=== PATIENT | male | born 1935 | race Hispanic/Latino ===

== ENCOUNTER 2018-06-17 14:31 | Inpatient (IN) | payer MEDICARE, MEDICAID ==
[2018-06-17] VITALS (7 sets, daily range): BP systolic 73–151; BP diastolic 45–73
[~2018-06-17] VITALS: Ht 177.8 cm; Wt 67.1 kg
[~2018-06-17 14:31] MED LIST: Cefepime HCl 1 GM in NS 55 ML IV SCH; Vancomycin 1 GM in NS 275 ML IV ONE
[2018-06-17] MEDS ORDERED: Cefepime 1gm vial ONE (14:38)
[2018-06-17] MEDS ORDERED: Vancomycin 1gm inj IVPB ONE (14:38)
--- NOTE | 2018-06-17 14:43 | Emergency Room Report ---
History of Present Illness General Chief Complaint: Altered Level of Consciousness Source: Medical Record, EMS Present Illness HPI This patient presents from a nursing home facility. EMS state that the nursing home facility noted that the patient was less alert than baseline. The patient has a history of epilepsy, hypothyroidism, diabetes and chronic encephalopathy. The patient is not oriented at baseline. The patient himself is unable to give a history. There is no other history of present illness available at this time. Allergies: Coded Allergies: No Known Allergies (Unverified , 06/17/18) Patient History Past Medical History: see triage record, old chart reviewed, DM, IN, CAD, CHF, GERD, CVA/TIA, dementia, seizures Past Surgical History: other - PEG Social History: Denies: smoking, alcohol use, drug use Reviewed Nursing Documentation: PMH: Agreed; PSxH: Agreed Review of Systems All Other Systems: limited Physical Exam Sp02 EP Interpretation: reviewed, abnormal - 95% on 5LNC General Appearance: no apparent distress, cachetic, lethargic, other - Cachectic, frail, chronically ill appearing elderly male Head: normocephalic, atraumatic ENT: no angioedema Neck: normal inspection, supple/symm/no masses Respiratory: normal inspection, normal breath sounds, no rhonchi, no respiratory distress, no retraction, no accessory muscle use Cardiovascular #1: tachycardia, other - Heart sounds diminished. Gastrointestinal: normal inspection, non-distended, other - PEG in place Neurologic: other - Non-focal. Minimally responsive. Sleeping. Unable to fully assess secondary to mental status. Skin: no rash, other - See RN skin exam Medical Decision Making Diagnostic Impression: Primary Impression: Sepsis Additional Impressions: Pneumonia Elevated troponin Azotemia Dehydration Septic shock ER Course This patient is comfort measures only. The patient is DO NOT RESUSCITATE. The patient presents with pneumonia and sepsis. Initially, this patient was hypotensive. However, the patient did respond to IV fluid resuscitation. I also suspect this patient was dehydrated given the laboratory findings of azotemia. Chest x-ray does show an opacification consistent with pneumonia. The patient was given broad-spectrum antibiotics, aggressive IV fluids and admitted to telemetry. The patient also had an elevated troponin. I suspect this is a demand ischemia. He has a bifascicular block on EKG. Given the patient's comfort care status there is no intervention at this time. This patient is critically ill. This patient required complex medical decision- making, aggressive intervention, extensive laboratory workup and monitoring. Critical care time: 40 minutes. Laboratory Tests Test 06/17/18 14:35 White Blood Count 12.2 K/UL (4.8-10.8) H Red Blood Count 4.16 M/UL (4.70-6.10) L Hemoglobin 12.6 G/DL (14.2-18.0) L Hematocrit 38.3 % (42.0-52.0) L Mean Corpuscular Volume 92 FL (80-99) Mean Corpuscular Hemoglobin 30.2 PG (27.0-31.0) Mean Corpuscular Hemoglobin Concent 32.8 G/DL (32.0-36.0) Red Cell Distribution Width 11.6 % (11.6-14.8) Platelet Count 229 K/UL (150-450) Mean Platelet Volume 7.9 FL (6.5-10.1) Neutrophils (%) (Auto) 84.7 % (45.0-75.0) H Lymphocytes (%) (Auto) 7.0 % (20.0-45.0) L Monocytes (%) (Auto) 7.9 % (1.0-10.0) Eosinophils (%) (Auto) 0.1 % (0.0-3.0) Basophils (%) (Auto) 0.4 % (0.0-2.0) Sodium Level 139 MMOL/L (136-145) Potassium Level 3.5 MMOL/L (3.5-5.1) Chloride Level 104 MMOL/L (98-107) Carbon Dioxide Level 29 MMOL/L (21-32) Anion Gap 6 mmol/L (5-15) Blood Urea Nitrogen 57 mg/dL (7-18) H Creatinine 1.2 MG/DL (0.55-1.30) Estimate Glomerular Filtration Rate mL/min (>60) Glucose Level 120 MG/DL (74-106) H Lactic Acid Level 3.00 mmol/L (0.4-2.0) H Calcium Level 9.6 MG/DL (8.5-10.1) Total Bilirubin 0.4 MG/DL (0.2-1.0) Aspartate Amino Transferase (AST) 22 U/L (15-37) Alanine Aminotransferase (ALT) 22 U/L (12-78) Alkaline Phosphatase 94 U/L (46-116) Total Creatine Kinase 32 U/L (26-308) Creatine Kinase MB 2.6 NG/ML (0.0-3.6) Creatine Kinase MB Relative Index 8.1 Troponin I 0.126 ng/mL (0.000-0.056) Total Protein 7.5 G/DL (6.4-8.2) Albumin 2.4 G/DL (3.4-5.0) L Globulin 5.1 g/dL Albumin/Globulin Ratio 0.5 (1.0-2.7) L EKG Diagnostic Results Rate: tachycardiac Rhythm: other - S.tachycardia ST Segments: no acute changes Other Impression Bifasicular block. Rhythm Strip Diag. Results EP Interpretation: yes Rate: 100's Rhythm: other - S.tachycardia, occasional PVCs Chest X-Ray Diagnostic Results Chest X-Ray Diagnostic Results : Chest X-Ray Ordered: Yes # of Views/Limited/Complete: 1 View Indication: Shortness of Breath EP Interpretation: Yes Interpretation: other - RLL opacity Impression: Other - RLL and RML opacity Disposition: ADMITTED INPATIENT Condition: Critical Blanquita Murphy DO Jun 17, 2018 14:43
[2018-06-17 15:02] LABS: ANION GAP 6 mmol/L (5-15); BLOOD UREA NITROGEN 57 mg/dL (7-18); CALCIUM 9.6 MG/DL (8.5-10.1); CARBON DIOXIDE 29 MMOL/L (21-32); CHLORIDE 104 MMOL/L (98-107); CREATININE 1.2 MG/DL (0.55-1.30); POTASSIUM 3.5 MMOL/L (3.5-5.1); SODIUM 139 MMOL/L (136-145)
[2018-06-17 15:09] LABS: BASOPHILS % (AUTO) 0.4 % (0.0-2.0); EOSINOPHILS % (AUTO) 0.1 % (0.0-3.0); HEMATOCRIT 38.3 % (42.0-52.0); HEMOGLOBIN 12.6 G/DL (14.2-18.0); MEAN CORPUSCULAR VOLUME 92 FL (80-99); MONOCYTES % (AUTO) 7.9 % (1.0-10.0); NEUTROPHILS % (AUTO) 84.7 % (45.0-75.0); PLATELET COUNT 229 K/UL (150-450); RED BLOOD COUNT 4.16 M/UL (4.70-6.10); RED CELL DISTRIBUTION WIDTH 11.6 % (11.6-14.8); WHITE BLOOD COUNT 12.2 K/UL (4.8-10.8)
[2018-06-17 15:16] LABS: ALANINE AMINOTRANSFERASE 22 U/L (12-78); ALBUMIN 2.4 G/DL (3.4-5.0); ALBUMIN/GLOBULIN RATIO 0.5 (1.0-2.7); ALKALINE PHOSPHATASE 94 U/L (46-116); ASPARTATE AMINO TRANSFERASE 22 U/L (15-37); BILIRUBIN,TOTAL 0.4 MG/DL (0.2-1.0); CKMB 2.6 NG/ML (0.0-3.6); CREATINE KINASE 32 U/L (26-308)
[2018-06-17] MEDS ORDERED: CRANBERRY450 M4 GT (15:56)
[2018-06-17] MEDS ORDERED: ATORVASTATIN CA20 MG ORAL (15:56)
[2018-06-17] MEDS ORDERED: ENALAPRIL MALEAT5 MG GT ×2 (15:56→16:23)
[2018-06-17] MEDS ORDERED: DOXAZOSIN MESYLA1 MG GT (15:56)
[2018-06-17] MEDS ORDERED: DONEPEZIL HCL5 MG GT (15:56)
--- NOTE | 2018-06-17 16:19 | Diagnostic Imaging Report ---
Indication: Reason For Exam: SOB Technique: One view of the chest Comparison: none Findings: Interstitial and airspace disease is seen throughout the right lung, sparing the apex. The right pleural space is clear. The left costophrenic angle is slightly blunted. The left lung is clear. Surgical clips projected over the right lung apex. Impression: Diffuse interstitial and airspace disease throughout the right lung, may indicate pneumonia. Left costophrenic angle blunting, small pleural effusion not completely excludable
[2018-06-17] MEDS ORDERED: METFORMIN HCL500 M1 ORAL (16:23)
[2018-06-17] MEDS ORDERED: NAMENDA5 MG GT (16:23)
[2018-06-17] MEDS ORDERED: FAMOTIDINE20 MG GT (16:23)
[2018-06-17] MEDS ORDERED: KEPPRA750 MG GT (16:23)
[2018-06-17] MEDS ORDERED: LEVOTHYROXINE125 MCG GT (16:23)
[2018-06-17] MEDS ORDERED: GABAPENTIN300 MG GT (16:23)
[2018-06-17 16:53] LABS: APPEARANCE,URINE SLIGHTLY CLOUDY; BILIRUBIN, URINE NEGATIVE (NEGATIVE); COLOR,URINE PALE YELLOW; GLUCOSE, URINE (UA) 1+ (NEGATIVE); KETONES,URINE NEGATIVE (NEGATIVE); LEUKOCYTE ESTERASE ,URINE 3+ (NEGATIVE); NITRITE,URINE NEGATIVE (NEGATIVE); PH,URINE 7 (4.5-8.0); PROTEIN,URINE 2+ (NEGATIVE); UROBILINOGEN,URINE 1 MG/DL (0.0-1.0)
[2018-06-17] MEDS: Albuterol/Ipratropium 3ml neb HHN SCH (19:10)
[2018-06-17] MEDS: D5 1/2NS w/KCl 20mEq 1,000 ML IV SCH (21:17)
[2018-06-18] VITALS: BP 133/68
[2018-06-18] MEDS ORDERED: Acetaminophen 650mg/20.3ml GT PRN (01:00)
[2018-06-18] MEDS: Albuterol/Ipratropium 3ml neb HHN SCH ×4 (01:20→19:09)
[2018-06-18] MEDS: Cefepime HCl 1 GM in D5W 55 ML IVPB SCH ×2 (03:28→14:01)
[2018-06-18 04:00] VITALS: BP 127/69
[2018-06-18] MEDS: Levothyroxine 125mcg tab GT SCH (06:19)
[2018-06-18] MEDS: D5 1/2NS w/KCl 20mEq 1,000 ML IV SCH ×2 (06:19→14:00)
[2018-06-18] MEDS: NovoLOG Insulin Flexpen SUBQ SCH ×4 (06:24→23:33)
[2018-06-18 07:07] LABS: HEMATOCRIT 31.4 % (42.0-52.0); HEMOGLOBIN 10.7 G/DL (14.2-18.0); MEAN CORPUSCULAR VOLUME 93 FL (80-99); PLATELET COUNT 162 K/UL (150-450); RED BLOOD COUNT 3.38 M/UL (4.70-6.10); RED CELL DISTRIBUTION WIDTH 12.4 % (11.6-14.8); WHITE BLOOD COUNT 9.4 K/UL (4.8-10.8)
[2018-06-18 07:26] LABS: ALANINE AMINOTRANSFERASE 22 U/L (12-78); ALBUMIN 2.2 G/DL (3.4-5.0); ALBUMIN/GLOBULIN RATIO 0.5 (1.0-2.7); ALKALINE PHOSPHATASE 72 U/L (46-116); ANION GAP 9 mmol/L (5-15); ASPARTATE AMINO TRANSFERASE 22 U/L (15-37); BILIRUBIN,TOTAL 0.3 MG/DL (0.2-1.0); BLOOD UREA NITROGEN 42 mg/dL (7-18); CALCIUM 8.9 MG/DL (8.5-10.1); CARBON DIOXIDE 26 MMOL/L (21-32); CHLORIDE 108 MMOL/L (98-107); POTASSIUM 3.9 MMOL/L (3.5-5.1); SODIUM 143 MMOL/L (136-145)
[2018-06-18 08:00] VITALS: BP 114/67
[2018-06-18] MEDS: levETIRAcetam 500mg/5ml Liquid GT SCH ×2 (08:14→21:30)
[2018-06-18] MEDS: Gabapentin 300 MG/6 ML Soln GT SCH ×3 (08:14→17:15)
[2018-06-18] MEDS: Heparin 5000 units/ml inj SUBQ SCH ×2 (08:14→21:31)
[2018-06-18] MEDS: Memantine 5 MG TAB GT SCH (08:15)
[2018-06-18] MEDS: Enalapril 5mg tab GT SCH (08:15)
[2018-06-18 12:00] VITALS: BP 126/64
[2018-06-18] MEDS ORDERED: Vancomycin 750mg/NS 250ml IVPB SCH (15:00)
[2018-06-18 16:00] VITALS: BP 102/54
[2018-06-18 20:00] VITALS: BP 153/97
[2018-06-18] MEDS: Donepezil 5mg Tab GT SCH (21:30)
[2018-06-18] MEDS: Atorvastatin 20mg tab GT SCH (21:30)
[2018-06-18] MEDS: Aspirin Baby 81mg GT SCH (23:31)
[2018-06-19] VITALS (7 sets, daily range): BP systolic 100–162; BP diastolic 51–83
[2018-06-19] MEDS: Albuterol/Ipratropium 3ml neb HHN SCH ×4 (01:00→19:44)
--- NOTE | 2018-06-19 01:00 | History and Physical Report ---
DATE OF ADMISSION: 06/17/2018 REASON FOR ADMISSION: Pneumonia, sepsis, and lactic acidosis. HISTORY OF PRESENT ILLNESS: This is an elderly male with advanced directives for DNR, who resides at a nursing home facility. He was referred because of altered mentation, notably withdrawn and lethargic with some cough. He was seen in the emergency room, unable to give additional historical data and admitted for further management. PAST MEDICAL HISTORY: Includes seizure disorder, cerebrovascular disease with dementia, hypothyroidism, type 2 diabetes mellitus, chronic kidney disease, arteriosclerotic cardiovascular disease, suprapubic catheter, dysphagia with gastrostomy tube, gastroesophageal reflux disease, and coronary artery disease with history of myocardial infarction. SOCIAL HISTORY: No record of smoking, alcohol, or substance abuse. FAMILY HISTORY: Noncontributory. MEDICATIONS: Prior to admission, reviewed and reconciled. ALLERGIES: None known. REVIEW OF SYSTEMS: Not obtainable from patient. Review of records performed and pertinent data as outlined above. PHYSICAL EXAMINATION: GENERAL: Withdrawn, lethargic, in no acute distress. He is an ill-appearing frail male. VITAL SIGNS: Blood pressure 121/73, pulse 84, respirations 24, and afebrile. HEENT: Temporal wasting. Pale conjunctivae. Dry mucous membranes. NECK: No jugular venous distention. Some accessory muscle use. LUNGS: With coarse breath sounds and rhonchi. CARDIAC: Regular rhythm. Rapid rate. Normal S1 and S2 with a 1/6 systolic murmur at the base. ABDOMEN: Soft and nontender. G-tube intact. EXTREMITIES: No clubbing or cyanosis. No edema. There is symmetric weakness. NEUROLOGIC: Minimally interactive and noncommunicative at this time. LABORATORY DATA: Chest x-ray reveals diffuse interstitial airspace disease throughout the right lung and left costophrenic angle blunting. Sodium 139, potassium 3.5, bicarbonate 29, BUN 57, creatinine 1.2, and glucose 120. Albumin 2.4. White count is 12.2 and hemoglobin 12.6. Urinalysis with 10 to 15 white cells and many bacteria. Lactic acid level 3. Troponin 0.126. IMPRESSION: 1. Healthcare-acquired aspiration pneumonia. 2. Sepsis likely due to complicated urinary tract infection with SP catheter. 3. Lactic acidosis. 4. Acute myocardial ischemia and possible [id number] myocardial infarction. 5. Cerebrovascular disease with dementia. 6. Toxic and metabolic encephalopathies. 7. Severe protein-calorie malnutrition. 8. Hypovolemia and dehydration. 9. Acute kidney injury. 10. Prerenal azotemia. PLAN: 1. Panculture, respiratory hygiene, bronchodilators, and nasal oxygen. 2. Empiric antibiotics. 3. DVT prophylaxis. 4. Intravenous fluid hydration. 5. Continue antiseizure therapy. 6. If no signs of bleeding, we will add anti-platelet drugs and continue statin therapy. 7. DNR based on advanced directives. Bryon Ramirez M.D. DR: CHNA JOB#: [id number] CC: ROSALIA
[2018-06-19] MEDS: D5 1/2NS w/KCl 20mEq 1,000 ML IV SCH ×3 (01:27→20:41)
[2018-06-19] MEDS: Cefepime HCl 1 GM in D5W 55 ML IVPB SCH (02:32)
[2018-06-19] MEDS: Levothyroxine 125mcg tab GT SCH (06:30)
[2018-06-19] MEDS: NovoLOG Insulin Flexpen SUBQ SCH ×3 (06:39→17:08)
[2018-06-19] MEDS ORDERED: Acetaminophen 650 MG SUPP RECTAL PRN (07:15)
[2018-06-19] MEDS: Heparin 5000 units/ml inj SUBQ SCH ×2 (09:23→20:40)
[2018-06-19] MEDS: Gabapentin 300 MG/6 ML Soln GT SCH ×3 (10:32→17:04)
[2018-06-19] MEDS: levETIRAcetam 500mg/5ml Liquid GT SCH ×2 (10:32→20:40)
[2018-06-19] MEDS: Aspirin Baby 81mg GT SCH (10:32)
[2018-06-19] MEDS: Enalapril 5mg tab GT SCH (10:32)
[2018-06-19] MEDS: Memantine 5 MG TAB GT SCH (10:32)
[2018-06-19] MEDS: Vancomycin 750mg/NS 250ml IVPB SCH ×2 (11:19→23:00)
[2018-06-19] MEDS: Meropenem 1 GM in NS 55 ML IVPB SCH ×2 (12:13→20:42)
--- NOTE | 2018-06-19 14:15 | Consultation ---
DATE OF CONSULTATION: 06/19/2018 INFECTIOUS DISEASE CONSULTATION This consult is for coverage of Dr. Oshea. CONSULTING PHYSICIAN: Slade Odonnell M.D. PRIMARY ATTENDING PHYSICIAN: Bryon Ramirez M.D. REASON FOR CONSULT: Sepsis, pneumonia, and urinary tract infection. HISTORY OF PRESENT ILLNESS: This is an 82-year-old male, admitted yesterday from a [facility] facility because of altered mental status. The patient became lethargic, had some coughing. He had fever of up to 102.8 early this morning and leukocytosis. The patient has dementia and is not the source of history. PAST MEDICAL HISTORY: Significant for Alzheimer's dementia, BPH, history of CVA, gastroesophageal reflux disease, spinal stenosis in cervical spine, coronary artery disease, status post myocardial infarction, chronic kidney disease, seizure disorder, and hypothyroidism. PAST SURGICAL HISTORY: Includes G-tube placement and suprapubic catheter placement. ALLERGIES: No known drug allergy. MEDICATIONS: Vancomycin, Tylenol, insulin, aspirin, atorvastatin, Vasotec, famotidine, heparin, gabapentin, Keppra, memantine, levothyroxine, cefepime, Tylenol, vancomycin, albuterol, and ipratropium inhaler. SOCIAL HISTORY: He is a half-way resident. No documented history of alcohol, drug abuse, or smoking. CODE STATUS: DNR. REVIEW OF SYSTEMS: Unobtainable. PHYSICAL EXAMINATION: VITAL SIGNS: Current temperature 97.2, pulse and blood pressure 147/75. GENERAL APPEARANCE: Noncommunicative, barely opens eyes. HEAD AND NECK: [place] conjunctiva. He has poor dentition. HEART: Normal rate, regular. LUNGS: Bilateral rhonchi. ABDOMEN: Soft with G-tube feeding. He has suprapubic catheter. The patient had cloudy urine. EXTREMITIES: No edema. He has severe muscle atrophy. LABORATORY DATA: At the time of admission, WBC was 12.2, now it is 9.4, hemoglobin is 10.7, hematocrit 31.4, platelet count 162,000. Lactic acid at the time of admission was 2.8, now it is within normal limit. Sodium 143, potassium 3.9, chloride 108, bicarbonate 26, BUN 42, creatinine 1, and glucose 162. Troponin was slightly elevated at 0.087, albumin is low 2.2. UA showed WBC of 10 to 50. Urine culture showed ESBL E. coli. Sputum culture is pending. Blood culture are so far negative. VRE screen is positive. IMPRESSION: Sepsis with fever, leukocytosis, and tachycardia. The patient seems to have multiple source of infection. He has urinary tract infection with Escherichia coli extended Spectrum Beta-Lactamases. He has pneumonia in chest x-ray. He has pressure ulcer in right second toe and may have underlying osteomyelitis. He has advanced dementia, hypothyroidism, chronic kidney disease, seizure disorder, vancomycin-resistant enterococci colonization, status post gastrostomy and suprapubic catheter. RECOMMENDATION: We will change cefepime to [email or web address] continue Vancomycin We will obtain right foot x-ray to rule out osteomyelitis. We will follow up the cultures. At the end of my exam, I thank Dr. Ramirez for involving me in the care of this patient. Slade Odonnell M.D. DR: JAMES JOB#: [id number] CC: ROSALIA
--- NOTE | 2018-06-19 14:51 | Cardiology Report ---
APPROVED REPORT EKG Measurement Heart [id number] VT [id number] Sinus rhythm with occasional premature ventricular complexes Right bundle branch block Left anterior fascicular block Bifascicular block Cannot rule out Inferior infarct, age undetermined Abnormal ECG
--- NOTE | 2018-06-19 14:54 | General Progress Note ---
Assessment/Plan Assessment/Plan GI Consult Dictated GT changed Thank you Alicia Aguilar MD Subjective Allergies: Coded Allergies: No Known Allergies (Unverified , 06/17/18) Objective Last 24 Hour Vital Signs Date Time Temp Pulse Resp B/P (MAP) Pulse Ox O2 Delivery O2 Flow Rate FiO2 06/19/18 13:03 84 24 Nasal Cannula 2.0 06/19/18 12:50 80 20 Nasal Cannula 2.0 06/19/18 12:00 98.1 88 20 134/68 (90) 98 98.1 06/19/18 12:00 76 06/19/18 10:32 147/75 06/19/18 09:00 Nasal Cannula 2.0 06/19/18 08:00 88 06/19/18 08:00 97.2 59 16 147/75 (99) 96 97.2 06/19/18 07:53 80 22 97 Nasal Cannula 2.0 06/19/18 07:39 95 Nasal Cannula 2.0 06/19/18 07:39 Nasal Cannula 2.0 06/19/18 07:39 74 20 95 Nasal Cannula 2.0 06/19/18 04:00 106 06/19/18 04:00 102.8 115 28 162/83 (109) 98 102.8 06/19/18 01:30 Nasal Cannula 2.0 06/19/18 01:30 Nasal Cannula 2.0 06/19/18 00:00 93 06/19/18 00:00 99.1 99 18 146/82 (103) 98 99.1 06/18/18 21:00 Nasal Cannula 3.0 06/18/18 20:00 89 06/18/18 20:00 99.5 113 16 153/97 (115) 98 99.5 06/18/18 19:19 Nasal Cannula 2.0 06/18/18 19:19 95 Nasal Cannula 2.0 06/18/18 19:12 94 20 97 Nasal Cannula 2.0 06/18/18 19:10 90 18 95 Nasal Cannula 2.0 06/18/18 16:00 97.9 108 18 102/54 (70) 95 97.9 06/18/18 16:00 100 Intake and Output 06/18/18 06/19/18 19:00 07:00 Intake Total 1538.000 ml Output Total 700 ml 775 ml Balance 838.000 ml -775 ml IV Total 1538.000 ml Output Urine Total 700 ml 775 ml Laboratory Tests 06/19/18 06:50: Lactic Acid Level 1.20, Troponin I 0.087H, Vancomycin Level Trough 9.0 Height (Feet): 5 Height (Inches): 10.00 Weight (Pounds): 150 Herminia Aguilar MD Jun 19, 2018 14:54
[2018-06-19] MEDS ORDERED: Tubing IV Secondary IV ONE (16:03)
[2018-06-19] MEDS ORDERED: NS 275ml ONE (16:03)
[2018-06-19] MEDS: Atorvastatin 20mg tab GT SCH (20:40)
[2018-06-19] MEDS: Donepezil 5mg Tab GT SCH (20:40)
--- NOTE | 2018-06-19 22:15 | Consultation ---
DATE OF CONSULTATION: 06/19/2018 GASTROENTEROLOGY CONSULTATION CONSULTING PHYSICIAN: Herminia Aguilar M.D. REFERRING PHYSICIAN: Bryon Ramirez M.D. CHIEF COMPLAINT: I was asked to see this patient by Dr. Bryon Ramirez for evaluation of gastrostomy tube. HISTORY OF PRESENT ILLNESS: The patient is a debilitated elderly white man from a [facility], who comes in due to pneumonia and sepsis and lactic acidosis. The patient is confused with poor mental status and is dependent on gastrostomy tubes for long-term enteral access and nutrition. The patient himself is unable to provide any history. Most of the information is available from the chart. The gastrostomy tube has become dysfunctional and requires replacement at this time. PAST MEDICAL HISTORY: History of seizure disorder, stroke, dementia, hypothyroidism, type 2 diabetes, chronic kidney disease, atherosclerotic cardiovascular disease, dysphagia, gastrostomy tube placement, gastroesophageal reflux disease, coronary artery disease, and myocardial infarction. MEDICATIONS: See chart for details. ALLERGIES: None. FAMILY HISTORY: Noncontributory. SOCIAL HISTORY: The patient does not smoke or drink. REVIEW OF SYSTEMS: Otherwise negative. PHYSICAL EXAMINATION: GENERAL: A debilitated white man, seen in his room. HEENT: Normocephalic and atraumatic. Sclerae anicteric. Oropharynx clear. NECK: Supple. CHEST: Clear to auscultation. CARDIOVASCULAR: Revealed a regular rate. ABDOMEN: Soft. Good bowel sounds. Gastrostomy tube was identified and replaced with a 20-[place] gastrostomy catheter. EXTREMITIES: Revealed no edema. NEUROLOGIC: Notable for obtundation. LABORATORY DATA: Noted. ASSESSMENT: This patient has long-term dysphagia and required gastrostomy tube feeding. The gastrostomy tube will be replaced and will be secured and tested and tube feeding will be restarted. The gastrostomy tube care was reviewed with the nursing staff. The patient also has anemia and blood counts will be followed as well. The differential diagnosis for anemia includes upper and lower gastrointestinal sources such as ulcers or cancers or malignancies or an arteriovenous malformation of the gastrointestinal tract. The patient's blood counts will be followed and he can be transfused as necessary. I will also check iron panel and also check stool for occult blood. If positive for iron deficient, then a discussion can be held with the patient's family regarding the risk-benefit ratio. RECOMMENDATIONS: 1. Follow up CBC. 2. Check iron panel. 3. Check stool for occult blood. 4. Gastrostomy tube care and use. 5. Elevation of bed. Thank you for asking me to participate in the care of this patient. Herminia Aguilar M.D. DR: MITZI JOB#: [id number] CC:
[2018-06-20] VITALS: BP 101/67
[2018-06-20] MEDS: NovoLOG Insulin Flexpen SUBQ SCH ×4 (00:34→17:31)
[2018-06-20] MEDS: Albuterol/Ipratropium 3ml neb HHN SCH ×4 (01:31→19:16)
--- NOTE | 2018-06-20 03:00 | Progress Note ---
DATE: 06/19/2018 INTERNAL MEDICINE AND CARDIOLOGY PROGRESS NOTE SUBJECTIVE: The patient pulled out his G-tube last night. It is going to be replaced today by Dr. Aguilar. He is on IV fluids. OBJECTIVE: VITAL SIGNS: Blood pressure 162/83, pulse 106, respirations 28, and temperature 102.8. LUNGS: Coarse breath sounds. Scattered rhonchi. HEART: Regular rhythm. Rapid rate. Normal S1, S2. ABDOMEN: Soft. G-tube is replaced with dressing. EXTREMITIES: No edema. LABORATORY DATA: Notable for troponin of 0.087. Lactic acid now normal. Cultures notable for ESBL urinary infection. IMPRESSION: 1. Multi-drug resistant urinary tract infection with E coli ESBL. 2. Sepsis. 3. Dysphagia. 4. Severe protein-calorie malnutrition. 5. G-tube dislodgement. 6. Aspiration. 7. Secondary sinus tachycardia. PLAN: 1. Antimicrobials adjusted per Infectious Disease edi consultant. 2. Titrate antihypertensives. 3. DVT and stress ulcer prophylaxes. 4. Insulin titration. 5. Adjust intravenous fluid hydration. 6. Advance feedings and protein supplement once G-tube replaced. Darrell Garza JOB#: [id number] CC:
--- NOTE | 2018-06-20 03:00 | Progress Note ---
DATE: 06/18/2018 CARDIOLOGY AND INTERNAL MEDICINE PROGRESS NOTE Late entry, 06/18/2018. SUBJECTIVE: The patient has fevers. He has some congestion. He has been on broad-spectrum antibiotics and respiratory therapy with bronchodilators. Cultures are pending. OBJECTIVE: VITAL SIGNS: Blood pressure 146/82, pulse 99, respirations 18, and temperature max 100.6. HEENT: Dry mucous membranes. LUNGS: Coarse breath sounds. Scattered rhonchi. HEART: Regular rhythm. Rapid rate. Normal S1, S2. ABDOMEN: Soft. EXTREMITIES: Trace edema. LABORATORY DATA: White count 9.4, hemoglobin 10.7. Sodium 143, potassium 3.9, bicarbonate 26, BUN 42, and creatinine 1. Troponin pending. Albumin 2.2. IMPRESSION: 1. Aspiration pneumonia. 2. Healthcare-acquired pneumonia. 3. Prerenal azotemia. 4. Hypovolemia, dehydration. 5. Lactic acidosis. 6. Acute myocardial ischemia. 7. Severe protein-calorie malnutrition. 8. Dysphagia with G-tube. 9. Advanced dementia. PLAN: 1. Hydration. 2. Broad-spectrum antibiotics. 3. Respiratory hygiene. 4. Await cultures. 5. Protein supplement by feeding tube. 6. DVT prophylaxis. 7. Anti-platelet and anti-ischemic therapy. 8. No plan for invasive procedures in this clinical setting and age group. Bryon Ramirez M.D. DR: SARITA JOB#: [id number] CC:
[2018-06-20 04:00] VITALS: BP 122/60
[2018-06-20] MEDS: Levothyroxine 125mcg tab GT SCH (06:08)
[2018-06-20 07:04] LABS: HEMATOCRIT 28.6 % (42.0-52.0); HEMOGLOBIN 9.5 G/DL (14.2-18.0); MEAN CORPUSCULAR VOLUME 93 FL (80-99); PLATELET COUNT 147 K/UL (150-450); RED BLOOD COUNT 3.07 M/UL (4.70-6.10); RED CELL DISTRIBUTION WIDTH 12.3 % (11.6-14.8); WHITE BLOOD COUNT 8.5 K/UL (4.8-10.8)
[2018-06-20 07:13] LABS: % IRON SATURATION 10 % (15-50); IRON 13 ug/dL (50-175); TOTAL IRON BINDING CAPACITY 127 ug/dL (250-450)
[2018-06-20 07:17] LABS: ALANINE AMINOTRANSFERASE 46 U/L (12-78); ALBUMIN 1.8 G/DL (3.4-5.0); ALBUMIN/GLOBULIN RATIO 0.4 (1.0-2.7); ALKALINE PHOSPHATASE 91 U/L (46-116); ANION GAP 8 mmol/L (5-15); ASPARTATE AMINO TRANSFERASE 37 U/L (15-37); BILIRUBIN,TOTAL 0.4 MG/DL (0.2-1.0); BLOOD UREA NITROGEN 18 mg/dL (7-18); CALCIUM 9.1 MG/DL (8.5-10.1); CARBON DIOXIDE 24 MMOL/L (21-32); CHLORIDE 107 MMOL/L (98-107); CREATININE 0.7 MG/DL (0.55-1.30); POTASSIUM 3.7 MMOL/L (3.5-5.1); SODIUM 139 MMOL/L (136-145)
[2018-06-20 08:00] VITALS: BP 124/63
[2018-06-20] MEDS: Meropenem 1 GM in NS 55 ML IVPB SCH ×2 (08:10→21:36)
[2018-06-20] MEDS: Gabapentin 300 MG/6 ML Soln GT SCH ×3 (08:10→17:30)
[2018-06-20] MEDS: Aspirin Baby 81mg GT SCH (08:17)
[2018-06-20] MEDS: Enalapril 5mg tab GT SCH (08:17)
[2018-06-20] MEDS: Memantine 5 MG TAB GT SCH (08:17)
[2018-06-20] MEDS: Heparin 5000 units/ml inj SUBQ SCH ×2 (08:18→21:35)
[2018-06-20] MEDS: levETIRAcetam 500mg/5ml Liquid GT SCH ×2 (08:18→21:36)
--- NOTE | 2018-06-20 08:48 | General Progress Note ---
Assessment/Plan Assessment/Plan Assessment - dysphagia - OBS - anemia Recmmendations - GT care - advance TF to goal - Elevate HOB - monitor CBC - await stool OB - will d/w family Subjective Allergies: Coded Allergies: No Known Allergies (Unverified , 06/17/18) Subjective above noted TF at 20/h only toll TF d/w RN Objective Last 24 Hour Vital Signs Date Time Temp Pulse Resp B/P (MAP) Pulse Ox O2 Delivery O2 Flow Rate FiO2 06/20/18 08:30 80 20 98 Nasal Cannula 2.0 06/20/18 08:22 Nasal Cannula 2.0 28 06/20/18 08:22 84 20 93 Nasal Cannula 2.0 28 06/20/18 08:22 93 Nasal Cannula 2.0 28 06/20/18 08:17 124/63 06/20/18 04:00 99.2 81 18 122/60 (80) 95 99.2 06/20/18 04:00 78 06/20/18 01:38 88 20 97 Nasal Cannula 2.0 06/20/18 01:31 84 18 94 Nasal Cannula 2.0 28 06/20/18 00:00 98.1 67 18 101/67 (78) 94 98.1 06/19/18 21:00 Nasal Cannula 2.0 06/19/18 20:00 62 06/19/18 20:00 97.7 64 18 101/51 (68) 99 97.7 06/19/18 19:46 68 20 97 Nasal Cannula 2.0 06/19/18 19:45 Nasal Cannula 2.0 06/19/18 19:45 97 Nasal Cannula 2.0 06/19/18 19:45 65 18 96 Nasal Cannula 2.0 06/19/18 17:38 98.0 66 20 111/59 (76) 95 98.0 06/19/18 16:00 70 06/19/18 16:00 98.8 72 20 100/51 (67) 94 98.8 06/19/18 13:03 84 24 Nasal Cannula 2.0 28 06/19/18 12:50 80 20 Nasal Cannula 2.0 28 06/19/18 12:00 98.1 88 20 134/68 (90) 98 98.1 06/19/18 12:00 76 06/19/18 10:32 147/75 06/19/18 09:00 Nasal Cannula 2.0 Intake and Output 06/19/18 06/20/18 19:00 07:00 Intake Total 1104.000 ml Output Total 800 ml 800 ml Balance 304.000 ml -800 ml IV Total 1104.000 ml Output Urine Total 800 ml 800 ml Laboratory Tests 06/20/18 05:35: White Blood Count 8.5, Red Blood Count 3.07L, Hemoglobin 9.5L, Hematocrit 28.6L , Mean Corpuscular Volume 93, Mean Corpuscular Hemoglobin 30.8, Mean Corpuscular Hemoglobin Concent 33.1, Red Cell Distribution Width 12.3, Platelet Count 147L, Mean Platelet Volume 7.2, Neutrophils (%) (Auto) , Lymphocytes (%) ( Auto) , Monocytes (%) (Auto) , Eosinophils (%) (Auto) , Basophils (%) (Auto) , Differential Total Cells Counted 100, Neutrophils % (Manual) 85H, Lymphocytes % (Manual) 9L, Monocytes % (Manual) 5, Eosinophils % (Manual) 1, Basophils % ( Manual) 0, Band Neutrophils 0, Platelet Estimate Adequate, Platelet Morphology Normal, Hypochromasia 1+, Sodium Level 139, Potassium Level 3.7, Chloride Level 107, Carbon Dioxide Level 24, Anion Gap 8, Blood Urea Nitrogen 18, Creatinine 0.7, Estimat Glomerular Filtration Rate , Glucose Level 139H, Calcium Level 9.1 , Magnesium Level 1.7L, Iron Level 13L, Total Iron Binding Capacity 127L, Percent Iron Saturation 10L, Unsaturated Iron Binding 114, Total Bilirubin 0.4, Aspartate Amino Transf (AST/SGOT) 37, Alanine Aminotransferase (ALT/SGPT) 46, Alkaline Phosphatase 91, Total Protein 6.4, Albumin 1.8L, Globulin 4.6, Albumin/ Globulin Ratio 0.4L Height (Feet): 5 Height (Inches): 10.00 Weight (Pounds): 150 Objective Elderly WM NCAT supple CTA RRR Abd Soft , (+) GT, (+) SP tube no edema OBS Herminia Aguilar MD Jun 20, 2018 08:48
--- NOTE | 2018-06-20 09:05 | Diagnostic Imaging Report ---
Indication: Foot pain Technique: 3 views right foot Comparison: none Findings: The bones are osteoporotic. There is mild hammertoe deformities second through fifth digits. No acute fractures. No dislocations. No definite osteolytic process or osseous erosion, although evaluation for such is limited given the degree of osteoporotic change. There are vascular calcifications Impression: No acute bony trauma No definite plain radiographic evidence of osteomyelitis. Note, however, limited sensitivity of plain radiographs for such Osteoporosis
[2018-06-20] MEDS: Vancomycin 750mg/NS 250ml IVPB SCH ×2 (10:01→23:00)
[2018-06-20 12:00] VITALS: BP 114/58
--- NOTE | 2018-06-20 13:17 | Infectious Diseases Prog Note ---
Assessment/Plan Assessment/Plan A; Sepsis improving E. Coli ESBL UTI E. 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 P; Continue Vancomycin & Meropenem will f/u cultures Change suprapubic catheter Subjective ROS Limited/Unobtainable: Yes Allergies: Coded Allergies: No Known Allergies (Unverified , 06/17/18) Objective Vital Signs Last 24 Hour Vital Signs Date Time Temp Pulse Resp B/P (MAP) Pulse Ox O2 Delivery O2 Flow Rate FiO2 06/20/18 12:53 70 20 99 Nasal Cannula 2.0 28 06/20/18 12:41 70 22 97 Nasal Cannula 2.0 28 06/20/18 12:00 97.7 83 20 114/58 (76) 98 97.7 06/20/18 09:00 Nasal Cannula 2.0 06/20/18 08:30 80 20 98 Nasal Cannula 2.0 28 06/20/18 08:22 Nasal Cannula 2.0 28 06/20/18 08:22 84 20 93 Nasal Cannula 2.0 06/20/18 08:22 93 Nasal Cannula 2.0 06/20/18 08:17 124/63 06/20/18 08:00 97.8 85 18 124/63 (83) 95 97.8 06/20/18 08:00 90 06/20/18 04:00 99.2 81 18 122/60 (80) 95 99.2 06/20/18 04:00 78 06/20/18 01:38 88 20 97 Nasal Cannula 2.0 06/20/18 01:31 84 18 94 Nasal Cannula 2.0 06/20/18 00:00 98.1 67 18 101/67 (78) 94 98.1 06/19/18 21:00 Nasal Cannula 2.0 06/19/18 20:00 62 06/19/18 20:00 97.7 64 18 101/51 (68) 99 97.7 06/19/18 19:46 68 20 97 Nasal Cannula 2.0 06/19/18 19:45 Nasal Cannula 2.0 28 06/19/18 19:45 97 Nasal Cannula 2.0 28 06/19/18 19:45 65 18 96 Nasal Cannula 2.0 06/19/18 17:38 98.0 66 20 111/59 (76) 95 98.0 06/19/18 16:00 70 06/19/18 16:00 98.8 72 20 100/51 (65) 94 98.8 Height (Feet): 5 Height (Inches): 10.00 Weight (Pounds): 150 General Appearance: no acute distress HEENT: mucous membranes moist Respiratory/Chest: lungs clear Cardiovascular: normal rate Abdomen: soft, non tender, other - GT feeding Extremities: no edema Neurologic/Psychiatric: disoriented Microbiology Date/Time Source Procedure Growth Status 06/17/18 14:50 Blood Blood Culture - Preliminary NO GROWTH AFTER 48 HOURS Resulted 06/17/18 14:35 Blood Blood Culture - Preliminary NO GROWTH AFTER 48 HOURS Resulted 06/17/18 20:00 Sputum Gram Stain - Final Resulted 06/17/18 20:00 Sputum Culture - Preliminary Escherichia Coli - Esbl Staphylococcus Aureus Resulted 06/17/18 13:41 Nasal Nares MRSA Culture - Final Staphylococcus Aureus - Mrsa Complete 06/17/18 13:41 Stool VRE Culture - Final Enterococcus Faecalis - Vre Complete 06/17/18 14:40 Urine,Clean Catch Urine Culture - Final Escherichia Coli - Esbl Complete 06/17/18 13:41 Rectum - Final NO CARBAPENEM-RESISTANT ENTEROBACTERI... Complete Laboratory Tests Test 06/20/18 05:35 White Blood Count 8.5 K/UL (4.8-10.8) Red Blood Count 3.07 M/UL (4.70-6.10) L Hemoglobin 9.5 G/DL (14.2-18.0) L Hematocrit 28.6 % (42.0-52.0) L Mean Corpuscular Volume 93 FL (80-99) Mean Corpuscular Hemoglobin 30.8 PG (27.0-31.0) Mean Corpuscular Hemoglobin Concent 33.1 G/DL (32.0-36.0) Red Cell Distribution Width 12.3 % (11.6-14.8) Platelet Count 147 K/UL (150-450) L Mean Platelet Volume 7.2 FL (6.5-10.1) Neutrophils (%) (Auto) % (45.0-75.0) Lymphocytes (%) (Auto) % (20.0-45.0) Monocytes (%) (Auto) % (1.0-10.0) Eosinophils (%) (Auto) % (0.0-3.0) Basophils (%) (Auto) % (0.0-2.0) Differential Total Cells Counted 100 Neutrophils % (Manual) 85 % (45-75) H Lymphocytes % (Manual) 9 % (20-45) L Monocytes % (Manual) 5 % (1-10) Eosinophils % (Manual) 1 % (0-3) Basophils % (Manual) 0 % (0-2) Band Neutrophils 0 % (0-8) Platelet Estimate Adequate Platelet Morphology Normal Hypochromasia 1+ Sodium Level 139 MMOL/L (136-145) Potassium Level 3.7 MMOL/L (3.5-5.1) Chloride Level 107 MMOL/L (98-107) Carbon Dioxide Level 24 MMOL/L (21-32) Anion Gap 8 mmol/L (5-15) Blood Urea Nitrogen 18 mg/dL (7-18) Creatinine 0.7 MG/DL (0.55-1.30) Estimat Glomerular Filtration Rate mL/min (>60) Glucose Level 139 MG/DL (74-106) H Calcium Level 9.1 MG/DL (8.5-10.1) Magnesium Level 1.7 MG/DL (1.8-2.4) L Iron Level 13 ug/dL (50-175) L Total Iron Binding Capacity 127 ug/dL (250-450) L Percent Iron Saturation 10 % (15-50) L Unsaturated Iron Binding 114 ug/dL (112-346) Total Bilirubin 0.4 MG/DL (0.2-1.0) Aspartate Amino Transf (AST/SGOT) 37 U/L (15-37) Alanine Aminotransferase (ALT/SGPT) 46 U/L (12-78) Alkaline Phosphatase 91 U/L (46-116) Total Protein 6.4 G/DL (6.4-8.2) Albumin 1.8 G/DL (3.4-5.0) L Globulin 4.6 g/dL Albumin/Globulin Ratio 0.4 (1.0-2.7) L Current Medications Medications (Trade) Dose Ordered Sig/Benjamin Route PRN Reason Start Time Stop Time Status Last Admin Dose Admin Acetaminophen (Tylenol) 650 mg Q4H PRN RECTAL Mild Pain/Temp > 100.5 06/19/18 07:15 07/19/18 07:14 Acetaminophen (Tylenol) 650 mg Q6H PRN GT For Pain 06/18/18 01:00 07/18/18 00:59 Albuterol/ Ipratropium (Albuterol/ Ipratropium) 3 ml Q6HRT HHN 06/17/18 19:00 06/22/18 18:59 06/20/18 12:41 Aspirin (ASA) 81 mg DAILY GT 06/18/18 23:00 07/18/18 22:59 06/20/18 08:17 Atorvastatin Calcium (Lipitor) 20 mg BEDTIME GT 06/18/18 21:00 07/18/18 20:59 06/19/18 20:40 Dextrose (Dextrose 50%) 25 ml STAT PRN IV Hypoglycemia 06/18/18 01:00 07/18/18 00:59 Dextrose (Dextrose 50%) 50 ml STAT PRN IV Hypoglycemia 06/18/18 01:00 07/18/18 00:59 Dextrose/ Electrolytes 1,000 ml @ 75 mls/hr [id number] IV 06/20/18 19:00 07/20/18 18:59 Donepezil HCl (Aricept) 5 mg QHS GT 06/18/18 21:00 07/18/18 20:59 06/19/18 20:40 Enalapril Maleate (Vasotec) 5 mg DAILY GT 06/18/18 09:00 07/18/18 08:59 06/20/18 08:17 Famotidine (Pepcid) 20 mg DAILY GT 06/18/18 09:00 07/18/18 08:59 06/20/18 08:17 Gabapentin (Neurontin) 300 mg THREE TIMES A DAY GT 06/18/18 09:00 07/18/18 08:59 06/20/18 12:33 Heparin Sodium (Porcine) (Heparin 5000 units/ml) 5,000 units EVERY 12 HOURS SUBQ 06/18/18 09:00 07/18/18 08:59 06/20/18 08:18 Insulin Aspart (NovoLOG) EVERY 6 HOURS SUBQ 06/19/18 00:00 07/18/18 06:29 06/20/18 12:31 Levetiracetam (Keppra) 750 mg Q12HR GT 06/18/18 09:00 07/18/18 08:59 06/20/18 08:18 Levothyroxine Sodium (Synthroid) 125 mcg DAILY@0630 GT 06/18/18 06:30 07/18/18 06:29 06/20/18 06:08 Memantine (Namenda) 5 mg DAILY GT 06/18/18 09:00 07/18/18 08:59 06/20/18 08:17 Meropenem 1 gm/ Sodium Chloride 55 ml @ 110 mls/hr Q12HR IVPB 06/19/18 11:00 06/24/18 10:59 06/20/18 08:10 Vancomycin HCl (Vanco rx to dose) 1 ea DAILY PRN MISC Per rx protocol 06/17/18 17:00 07/17/18 16:59 Vancomycin/Sodium Chloride 250 ml @ 166.667 mls/hr Q12H IVPB 06/19/18 11:00 06/24/18 10:59 06/20/18 10:01 Slade Odonnell MD Jun 20, 2018 13:17
[2018-06-20] MEDS ORDERED: NS 55ml IV ONE (14:00)
[2018-06-20 16:00] VITALS: BP 109/47
[2018-06-20] MEDS ORDERED: D5 1/2NS w/KCl 20mEq 1,000 ML IV SCH (16:00)
[2018-06-20] MEDS ORDERED: Sterile Water Irrig 1000ml IRRIG ONE (16:15)
[2018-06-20 20:00] VITALS: BP 100/45
[2018-06-20] MEDS: Donepezil 5mg Tab GT SCH (21:37)
[2018-06-20] MEDS: Atorvastatin 20mg tab GT SCH (21:37)
--- NOTE | 2018-06-20 21:45 | Consultation ---
DATE OF CONSULTATION: 06/20/2018 CONSULTING PHYSICIAN: Home White M.D. REFERRING PHYSICIAN: Bryon Ramirez M.D. REASON FOR CONSULTATION: For evaluation of suprapubic tube. HISTORY OF PRESENT ILLNESS: This is an 83-year-old male, who is a resident of retirement. He was brought to the hospital because of sepsis and pneumonia. He has history of BPH, neurogenic bladder, chronic suprapubic tube apparently due for exchange. Most of the history was obtained from the chart. According to nursing staff, the has been draining fairly well. PAST MEDICAL HISTORY: Significant for seizure disorder, cerebrovascular accident, dementia, hypothyroidism, diabetes, gastroesophageal reflux disease, coronary artery disease. PAST SURGICAL HISTORY: As above. Also G-tube. Other surgeries are unknown. CURRENT MEDICATIONS: In the hospital, the patient is on vancomycin, meropenem, NovoLog, aspirin, Lipitor, Aricept, heparin, Vasotec, Pepcid, Neurontin, Keppra, Namenda, Synthroid, Tylenol, albuterol. ALLERGIES: No known drug allergies. SOCIAL HISTORY: Unable to obtain. FAMILY HISTORY: Unable to obtain. PHYSICAL EXAMINATION: GENERAL: Elderly male. VITAL SIGNS: Temperature 97.9, blood pressure 109/47, pulse 63, respirations . ABDOMEN: Soft. No CVA tenderness. GENITOURINARY: There is a 22-Hebrew suprapubic tube. Urine is nikita. LABORATORY DATA: BUN 18, creatinine 0.7, potassium 3.7. White count is 8.5, hemoglobin 9.5, platelets 147,000. UA showed 2+ protein, 5-10 rbc's, 10-15 wbc's. Urine culture showed E. coli, which is ESBL. DIAGNOSTIC IMAGING STUDIES: The patient had a chest x-ray which was reviewed. There is no renal imaging here. IMPRESSION: 1. Urinary retention with chronic suprapubic tube. 2. BPH history. 3. Probable neurogenic bladder. 4. UTI colonization. 5. Hematuria. 6. Proteinuria. PLAN AND DISCUSSION: The patient is to continue with antibiotics as ordered. We will plan on changing the suprapubic tube soon. I will check with the retirement as to when was the last time it was exchanged. We will consider renal imaging study and cystoscopy in the future. Thank you for this consultation. Home White M.D. DR: Manuel JOB#: [id number] CC:
--- NOTE | 2018-06-20 22:30 | Progress Note ---
DATE: 06/20/2018 CARDIOLOGY AND INTERNAL MEDICINE PROGRESS NOTE SUBJECTIVE: The patient is not in any distress. OBJECTIVE: GENERAL: Withdrawn, lethargic. G-tube and suprapubic catheter intact. VITAL SIGNS: T-max 99.2 degrees, blood pressure 114/58, heart rate 83 and respiratory rate 20. Monitored rhythm, sinus. The patient remains on IV antibiotics. LUNGS: Clear. CARDIAC: Regular. Normal S1 and S2 with a fourth heart sound. ABDOMEN: Soft. EXTREMITIES: There is no edema. IMPRESSION: 1. Sepsis. 2. ESBL E. coli urinary tract infection. 3. E. coli and Staph pneumonia. 4. Cerebrovascular disease with dementia. 5. Suprapubic catheter. 6. VRE colonization of the GI tract. 7. MRSA colonization of the respiratory tract. 8. Severe protein-calorie malnutrition. PLAN: 1. Antimicrobials. 2. consult to address suprapubic catheter site and possible replacement. 3. Respiratory hygiene. 4. Maintain adequate hydration. 5. Continue G-tube feedings with protein supplement. 6. Taper off IV fluids. Bryon Ramirez M.D. DR: GISELE JOB#: [id number] CC:
[2018-06-21] VITALS: BP 124/59
[2018-06-21] MEDS: Albuterol/Ipratropium 3ml neb HHN SCH ×5 (00:30→23:49)
[2018-06-21] MEDS: NovoLOG Insulin Flexpen SUBQ SCH ×5 (00:51→23:08)
[2018-06-21 05:00] VITALS: BP 115/66
[2018-06-21] MEDS: Levothyroxine 125mcg tab GT SCH (06:42)
[2018-06-21] MEDS ORDERED: Acetaminophen 650mg/20.3ml GT PRN (07:00)
[2018-06-21] MEDS ORDERED: Acetaminophen 650 MG SUPP RECTAL PRN (07:15)
[2018-06-21 08:00] VITALS: BP 124/63
[2018-06-21] MEDS: Heparin 5000 units/ml inj SUBQ SCH ×2 (09:00→20:40)
[2018-06-21] MEDS: levETIRAcetam 500mg/5ml Liquid GT SCH ×2 (09:14→20:40)
[2018-06-21] MEDS: Enalapril 5mg tab GT SCH (09:15)
[2018-06-21] MEDS: Aspirin Baby 81mg GT SCH (09:16)
[2018-06-21] MEDS: Memantine 5 MG TAB GT SCH (09:17)
[2018-06-21] MEDS: Gabapentin 300 MG/6 ML Soln GT SCH ×3 (10:04→17:10)
[2018-06-21] MEDS: Meropenem 1 GM in NS 55 ML IVPB SCH ×2 (10:05→20:40)
--- NOTE | 2018-06-21 10:42 | Infectious Diseases Prog Note ---
"Assessment/Plan Assessment/Plan antibiotics : vancomycin iv, meropenem A 1. MRSA | e.coli pneumonia 2. e.coli UTI 3. MRSA nasal colonization 4, rectal VRE colonization 5. dementia P 1. continue iv vancomycin 5 more days 2. continue meropenem 7 more days 3. will follow up cultures Subjective ROS Limited/Unobtainable: Yes Allergies: Coded Allergies: No Known Allergies (Unverified , 06/17/18) Objective Vital Signs Last 24 Hour Vital Signs Date Time Temp Pulse Resp B/P (MAP) Pulse Ox O2 Delivery O2 Flow Rate FiO2 06/21/18 09:15 124/63 06/21/18 08:00 98.1 79 20 124/63 (83) 97 98.1 06/21/18 08:00 80 21 99 Nasal Cannula 2.0 28 06/21/18 07:50 79 18 96 Nasal Cannula 2.0 28 06/21/18 07:50 96 Nasal Cannula 2.0 28 06/21/18 07:50 Nasal Cannula 2.0 28 06/21/18 07:26 98.1 06/21/18 06:56 100.5 06/21/18 05:00 100.5 88 20 115/66 (82) 97 100.5 06/21/18 00:42 82 20 99 Nasal Cannula 2.0 28 06/21/18 00:30 81 18 97 Nasal Cannula 2.0 28 06/21/18 00:00 97.7 68 18 124/59 (80) 98 97.7 06/20/18 21:00 Nasal Cannula 2.0 06/20/18 20:00 97.9 53 20 100/45 (63) 100 97.9 06/20/18 20:00 64 06/20/18 19:26 61 17 100 Nasal Cannula 2.0 28 06/20/18 19:16 Room Air 21 06/20/18 19:16 97 Room Air 21 06/20/18 16:00 62 06/20/18 16:00 97.9 63 20 109/47 (67) 99 97.9 06/20/18 14:40 97.7 06/20/18 14:10 97.7 06/20/18 12:53 70 20 99 Nasal Cannula 2.0 28 06/20/18 12:41 70 22 97 Nasal Cannula 2.0 28 06/20/18 12:00 70 06/20/18 12:00 97.7 83 20 114/58 (76) 98 97.7 Height (Feet): 5 Height (Inches): 10.00 Weight (Pounds): 150 Respiratory/Chest: lungs clear Cardiovascular: normal rate, regular rhythm, no gallop/murmur Abdomen: soft, non tender, other - GT Extremities: no edema Laboratory Tests Test 06/20/18 22:40 Vancomycin Level Trough 18.1 ug/mL (5.0-12.0) H Current Medications Medications (Trade) Dose Ordered Sig/Benjamin Route PRN Reason Start Time Stop Time Status Last Admin Dose Admin Acetaminophen (Tylenol) 650 mg Q4H PRN RECTAL Mild Pain/Temp > 100.5 06/21/18 07:15 07/19/18 07:14 06/21/18 06:56 Acetaminophen (Tylenol) 650 mg Q6H PRN GT For Pain 06/21/18 07:00 07/18/18 00:59 Albuterol/ Ipratropium (Albuterol/ Ipratropium) 3 ml Q6HRT HHN 06/21/18 07:00 06/22/18 18:59 06/21/18 07:50 Aspirin (ASA) 81 mg DAILY GT 06/21/18 09:00 07/18/18 22:59 06/21/18 09:16 Atorvastatin Calcium (Lipitor) 20 mg BEDTIME GT 06/21/18 21:00 07/18/18 20:59 Dextrose (Dextrose 50%) 25 ml STAT PRN IV Hypoglycemia 06/22/18 01:00 07/18/18 00:59 Dextrose (Dextrose 50%) 50 ml STAT PRN IV Hypoglycemia 06/22/18 01:00 07/18/18 00:59 Donepezil HCl (Aricept) 5 mg QHS GT 06/21/18 21:00 07/18/18 20:59 Enalapril Maleate (Vasotec) 5 mg DAILY GT 06/21/18 09:00 07/18/18 08:59 06/21/18 09:15 Famotidine (Pepcid) 20 mg DAILY GT 06/21/18 09:00 07/18/18 08:59 06/21/18 09:15 Gabapentin (Neurontin) 300 mg THREE TIMES A DAY GT 06/21/18 09:00 07/18/18 08:59 06/21/18 10:04 Heparin Sodium (Porcine) (Heparin 5000 units/ml) 5,000 units EVERY 12 HOURS SUBQ 06/21/18 09:00 07/18/18 08:59 Insulin Aspart (NovoLOG) EVERY 6 HOURS SUBQ 06/21/18 06:00 07/18/18 06:29 06/21/18 06:19 Levetiracetam (Keppra) 750 mg Q12HR GT 06/21/18 09:00 07/18/18 08:59 06/21/18 09:14 Levothyroxine Sodium (Synthroid) 125 mcg DAILY@0630 GT 06/21/18 06:30 07/18/18 06:29 06/21/18 06:42 Memantine (Namenda) 5 mg DAILY GT 06/21/18 09:00 07/18/18 08:59 06/21/18 09:17 Meropenem 1 gm/ Sodium Chloride 55 ml @ 110 mls/hr Q12HR IVPB 06/21/18 09:00 06/24/18 10:59 06/21/18 10:05 Vancomycin HCl (Vanco rx to dose) 1 ea DAILY PRN MISC Per rx protocol 06/21/18 09:00 07/17/18 16:59 Vancomycin/Sodium Chloride 250 ml @ 166.667 mls/hr Q12H IVPB 06/21/18 11:00 06/24/18 10:59 FAZAL PORRAS Jun 21, 2018 10:42"
[2018-06-21] MEDS: Vancomycin 750mg/NS 250ml 250 ML IVPB SCH ×2 (11:41→23:07)
[2018-06-21 12:00] VITALS: BP 111/56
--- NOTE | 2018-06-21 15:13 | Urology Progress Note ---
Assessment/Plan Assessment/Plan 1. Urinary retention with chronic suprapubic tube. 2. BPH history. 3. Probable neurogenic bladder. 4. UTI colonization. 5. Hematuria. 6. Proteinuria. abx as ordered I personally removed old sp tube new 22f cath placed, hand irrigated, position satisfactory cysto later f/u on blood cx Subjective Allergies: Coded Allergies: No Known Allergies (Unverified , 06/17/18) Subjective all noted Objective Last 24 Hour Vital Signs Date Time Temp Pulse Resp B/P (MAP) Pulse Ox O2 Delivery O2 Flow Rate FiO2 06/21/18 13:12 79 20 98 Nasal Cannula 2.0 28 06/21/18 13:02 76 16 96 Nasal Cannula 2.0 28 06/21/18 12:00 98.4 66 17 111/56 (74) 96 98.4 06/21/18 09:15 124/63 06/21/18 08:30 Nasal Cannula 2.0 06/21/18 08:00 98.1 79 20 124/63 (83) 97 98.1 06/21/18 08:00 80 21 99 Nasal Cannula 2.0 28 06/21/18 07:50 79 18 96 Nasal Cannula 2.0 28 06/21/18 07:50 96 Nasal Cannula 2.0 28 06/21/18 07:50 Nasal Cannula 2.0 28 06/21/18 07:26 98.1 06/21/18 06:56 100.5 06/21/18 05:00 100.5 88 20 115/66 (82) 97 100.5 06/21/18 00:42 82 20 99 Nasal Cannula 2.0 28 06/21/18 00:30 81 18 97 Nasal Cannula 2.0 28 06/21/18 00:00 97.7 68 18 124/59 (80) 98 97.7 06/20/18 21:00 Nasal Cannula 2.0 06/20/18 20:00 97.9 53 20 100/45 (63) 100 97.9 06/20/18 20:00 64 06/20/18 19:26 61 17 100 Nasal Cannula 2.0 28 06/20/18 19:16 Room Air 21 06/20/18 19:16 97 Room Air 21 06/20/18 16:00 62 06/20/18 16:00 97.9 63 20 109/47 (67) 99 97.9 Intake and Output 06/20/18 06/21/18 19:00 07:00 Output Total 450 ml Balance -450 ml Output Urine Total 450 ml # Voids 1 Microbiology Date/Time Source Procedure Growth Status 06/17/18 14:50 Blood Blood Culture - Preliminary NO GROWTH AFTER 72 HOURS Resulted 06/17/18 20:00 Sputum Gram Stain - Final Complete 06/17/18 20:00 Sputum Culture - Final Escherichia Coli - Esbl Staphylococcus Aureus - Mrsa Complete 06/17/18 13:41 Stool VRE Culture - Final Enterococcus Faecalis - Vre Complete 06/17/18 14:40 Urine,Clean Catch Urine Culture - Final Escherichia Coli - Esbl Complete 06/17/18 13:41 Rectum - Final NO CARBAPENEM-RESISTANT ENTEROBACTERI... Complete Current Medications Medications (Trade) Dose Ordered Sig/Benjamin Route PRN Reason Start Time Stop Time Status Last Admin Dose Admin Acetaminophen (Tylenol) 650 mg Q4H PRN RECTAL Mild Pain/Temp > 100.5 06/21/18 07:15 07/19/18 07:14 06/21/18 06:56 Acetaminophen (Tylenol) 650 mg Q6H PRN GT For Pain 06/21/18 07:00 07/18/18 00:59 Albuterol/ Ipratropium (Albuterol/ Ipratropium) 3 ml Q6HRT HHN 06/21/18 07:00 06/22/18 18:59 06/21/18 13:02 Aspirin (ASA) 81 mg DAILY GT 06/21/18 09:00 07/18/18 22:59 06/21/18 09:16 Atorvastatin Calcium (Lipitor) 20 mg BEDTIME GT 06/21/18 21:00 07/18/18 20:59 Dextrose (Dextrose 50%) 25 ml STAT PRN IV Hypoglycemia 06/22/18 01:00 07/18/18 00:59 Dextrose (Dextrose 50%) 50 ml STAT PRN IV Hypoglycemia 06/22/18 01:00 07/18/18 00:59 Donepezil HCl (Aricept) 5 mg QHS GT 06/21/18 21:00 07/18/18 20:59 Enalapril Maleate (Vasotec) 5 mg DAILY GT 06/21/18 09:00 07/18/18 08:59 06/21/18 09:15 Famotidine (Pepcid) 20 mg DAILY GT 06/21/18 09:00 07/18/18 08:59 06/21/18 09:15 Gabapentin (Neurontin) 300 mg THREE TIMES A DAY GT 06/21/18 09:00 07/18/18 08:59 06/21/18 13:47 Heparin Sodium (Porcine) (Heparin 5000 units/ml) 5,000 units EVERY 12 HOURS SUBQ 06/21/18 09:00 07/18/18 08:59 Insulin Aspart (NovoLOG) EVERY 6 HOURS SUBQ 06/21/18 06:00 07/18/18 06:29 06/21/18 11:52 Levetiracetam (Keppra) 750 mg Q12HR GT 06/21/18 09:00 07/18/18 08:59 06/21/18 09:14 Levothyroxine Sodium (Synthroid) 125 mcg DAILY@0630 GT 06/21/18 06:30 07/18/18 06:29 06/21/18 06:42 Memantine (Namenda) 5 mg DAILY GT 06/21/18 09:00 07/18/18 08:59 06/21/18 09:17 Meropenem 1 gm/ Sodium Chloride 55 ml @ 110 mls/hr Q12HR IVPB 06/21/18 09:00 06/24/18 10:59 06/21/18 10:05 Vancomycin HCl (Vanco rx to dose) 1 ea DAILY PRN MISC Per rx protocol 06/21/18 09:00 07/17/18 16:59 Vancomycin/Sodium Chloride 250 ml @ 166.667 mls/hr Q12H IVPB 06/21/18 11:00 06/24/18 10:59 06/21/18 11:41 Laboratory Tests 06/20/18 22:40: Vancomycin Level Trough 18.1H Height (Feet): 5 Height (Inches): 10.00 Weight (Pounds): 150 Objective exam stable ALEJANDRO COLLIER Jun 21, 2018 15:13
[2018-06-21 16:00] VITALS: BP 127/56
[2018-06-21] MEDS ORDERED: Sterile Water For Irrig 2000ml IRRIG ONE (16:27)
[2018-06-21 19:55] VITALS: BP 130/70
[2018-06-21] MEDS: Donepezil 5mg Tab GT SCH (20:39)
[2018-06-21] MEDS: Atorvastatin 20mg tab GT SCH (20:39)
[2018-06-21] MEDS: Iron Sucrose 100 MG in NS 55 ML IV SCH (21:00)
--- NOTE | 2018-06-21 22:10 | General Progress Note ---
Assessment/Plan Assessment/Plan Assessment - dysphagia - OBS - anemia - no w/u planned at this time due to dementia/poor health Recmmendations - GT care - advance TF to goal - Elevate HOB - monitor CBC - await stool OB - family will call me if interested in GI w/u of anemia Subjective Allergies: Coded Allergies: No Known Allergies (Unverified , 06/17/18) Subjective above noted d/w daughter/Mom over phone patient had colonoscopy may years ago advised family re anemia and overall health Objective Last 24 Hour Vital Signs Date Time Temp Pulse Resp B/P (MAP) Pulse Ox O2 Delivery O2 Flow Rate FiO2 06/21/18 20:27 98 Nasal Cannula 2.0 28 06/21/18 20:27 62 16 98 Nasal Cannula 2.0 28 06/21/18 20:27 Nasal Cannula 2.0 28 06/21/18 20:20 Nasal Cannula 2.0 06/21/18 19:55 97.5 57 17 130/70 (90) 98 97.5 06/21/18 16:56 98.4 06/21/18 16:26 98.4 06/21/18 16:00 98.1 58 20 127/56 (79) 98 98.1 06/21/18 13:12 79 20 98 Nasal Cannula 2.0 28 06/21/18 13:02 76 16 96 Nasal Cannula 2.0 28 06/21/18 12:00 98.4 66 17 111/56 (74) 96 98.4 06/21/18 09:15 124/63 06/21/18 08:30 Nasal Cannula 2.0 06/21/18 08:00 98.1 79 20 124/63 (83) 97 98.1 06/21/18 08:00 80 21 99 Nasal Cannula 2.0 28 06/21/18 07:50 79 18 96 Nasal Cannula 2.0 28 06/21/18 07:50 96 Nasal Cannula 2.0 28 06/21/18 07:50 Nasal Cannula 2.0 28 06/21/18 07:26 98.1 06/21/18 06:56 100.5 06/21/18 05:00 100.5 88 20 115/66 (82) 97 100.5 06/21/18 00:42 82 20 99 Nasal Cannula 2.0 28 06/21/18 00:30 81 18 97 Nasal Cannula 2.0 28 06/21/18 00:00 97.7 68 18 124/59 (80) 98 97.7 Intake and Output 06/20/18 06/21/18 19:00 07:00 Intake Total 60 ml Output Total 450 ml Balance -450 ml 60 ml Tube Feeding 60 ml Output Urine Total 450 ml # Voids 1 Laboratory Tests 06/20/18 22:40: Vancomycin Level Trough 18.1H Height (Feet): 5 Height (Inches): 10.00 Weight (Pounds): 150 Objective Elderly WM NCAT supple CTA RRR Abd Soft , (+) GT, (+) SP tube no edema OBS Herminia Aguilar MD Jun 21, 2018 22:10
[2018-06-22 00:17] VITALS: BP 120/72
--- NOTE | 2018-06-22 02:15 | Progress Note ---
DATE: 06/21/2018 INTERNAL MEDICINE PROGRESS NOTE SUBJECTIVE: No new distress. Status post replacement of suprapubic catheter. OBJECTIVE: VITAL SIGNS: Stable. T-max 100.5. LUNGS: Coarse breath sounds. Few rhonchi. HEART: Regular rhythm and rate. Normal S1, S2. ABDOMEN: Soft. GENITOURINARY: Suprapubic catheter site intact. EXTREMITIES: No edema. IMPRESSION: 1. E. coli urinary tract infection. 2. Suprapubic catheter. 3. MRSA and E. coli pneumonia. 4. Cerebrovascular disease with dementia. PLAN: IV antibiotics with meropenem and vancomycin per ID. Skin care. No change in remainder of medication regimen. Follow up laboratory studies. DVT and stress ulcer prophylaxis. Bryon Ramirez M.D. DR: Josué JOB#: [id number] CC:
[2018-06-22 04:04] VITALS: BP 140/69
[2018-06-22] MEDS: Levothyroxine 125mcg tab GT SCH (05:50)
[2018-06-22] MEDS: NovoLOG Insulin Flexpen SUBQ SCH ×3 (05:51→17:38)
[2018-06-22 07:31] LABS: ALANINE AMINOTRANSFERASE 38 U/L (12-78); ALBUMIN 1.7 G/DL (3.4-5.0); ALBUMIN/GLOBULIN RATIO 0.4 (1.0-2.7); ALKALINE PHOSPHATASE 88 U/L (46-116); ANION GAP 6 mmol/L (5-15); ASPARTATE AMINO TRANSFERASE 27 U/L (15-37); BILIRUBIN,TOTAL 0.3 MG/DL (0.2-1.0); BLOOD UREA NITROGEN 16 mg/dL (7-18); CARBON DIOXIDE 27 MMOL/L (21-32); CHLORIDE 108 MMOL/L (98-107); CREATININE 0.6 MG/DL (0.55-1.30); SODIUM 141 MMOL/L (136-145)
[2018-06-22 08:00] VITALS: BP 137/66
[2018-06-22] MEDS: levETIRAcetam 500mg/5ml Liquid GT SCH ×2 (08:14→21:25)
[2018-06-22] MEDS: Aspirin Baby 81mg GT SCH (08:14)
[2018-06-22] MEDS: Memantine 5 MG TAB GT SCH (08:14)
[2018-06-22] MEDS: Albuterol/Ipratropium 3ml neb HHN SCH ×2 (08:33→14:24)
[2018-06-22] MEDS: Meropenem 1 GM in NS 55 ML IVPB SCH ×2 (08:44→21:07)
[2018-06-22] MEDS: Enalapril 5mg tab GT SCH (08:44)
[2018-06-22] MEDS: Gabapentin 300 MG/6 ML Soln GT SCH ×3 (08:44→17:32)
[2018-06-22 09:35] LABS: BASOPHILS % (AUTO) 0.5 % (0.0-2.0); EOSINOPHILS % (AUTO) 4.5 % (0.0-3.0); HEMATOCRIT 31.1 % (42.0-52.0); LYMPHOCYTES % (AUTO) 10.3 % (20.0-45.0); MEAN CORPUSCULAR VOLUME 93 FL (80-99); MONOCYTES % (AUTO) 7.6 % (1.0-10.0); PLATELET COUNT 181 K/UL (150-450); RED BLOOD COUNT 3.34 M/UL (4.70-6.10); RED CELL DISTRIBUTION WIDTH 12.1 % (11.6-14.8); WHITE BLOOD COUNT 6.7 K/UL (4.8-10.8)
[2018-06-22] MEDS: Heparin 5000 units/ml inj SUBQ SCH ×2 (10:14→21:31)
--- NOTE | 2018-06-22 10:28 | Urology Progress Note ---
Assessment/Plan Assessment/Plan 1. Urinary retention with chronic suprapubic tube. 2. BPH history. 3. Probable neurogenic bladder. 4. UTI colonization. 5. Hematuria. 6. Proteinuria. SP tube last changed 06/21 monitor clinically hand irrigate sp tube PRN abx as ordered cysto later f/u on blood cx Subjective Allergies: Coded Allergies: No Known Allergies (Unverified , 06/17/18) Subjective all noted, sp tube draining Objective Last 24 Hour Vital Signs Date Time Temp Pulse Resp B/P (MAP) Pulse Ox O2 Delivery O2 Flow Rate FiO2 06/22/18 09:00 Nasal Cannula 2.0 06/22/18 08:44 137/66 06/22/18 08:43 64 18 99 Nasal Cannula 2.0 28 06/22/18 08:33 64 18 98 Nasal Cannula 2.0 28 06/22/18 08:31 Nasal Cannula 2.0 28 06/22/18 08:30 98 Nasal Cannula 2.0 28 06/22/18 08:00 97.8 69 19 137/66 (89) 99 97.8 06/22/18 04:04 98.1 71 16 140/69 (92) 96 98.1 06/22/18 00:17 96.5 64 15 120/72 (88) 99 96.5 06/22/18 00:00 60 16 98 Nasal Cannula 2.0 06/21/18 23:49 62 16 98 Nasal Cannula 2.0 06/21/18 20:37 82 20 98 Nasal Cannula 2.0 06/21/18 20:27 98 Nasal Cannula 2.0 28 06/21/18 20:27 62 16 98 Nasal Cannula 2.0 06/21/18 20:27 Nasal Cannula 2.0 28 06/21/18 20:20 Nasal Cannula 2.0 06/21/18 19:55 97.5 57 17 130/70 (90) 98 97.5 06/21/18 16:56 98.4 06/21/18 16:26 98.4 06/21/18 16:00 98.1 58 20 127/56 (79) 98 98.1 06/21/18 13:12 79 20 98 Nasal Cannula 2.0 28 06/21/18 13:02 76 16 96 Nasal Cannula 2.0 28 06/21/18 12:00 98.4 66 17 111/56 (74) 96 98.4 Intake and Output 06/21/18 06/22/18 19:00 07:00 Intake Total 1085 ml 1025.000 ml Output Total 500 ml 1700 ml Balance 585 ml -675.000 ml Free Water 120 ml IV Total 305 ml 305.000 ml Tube Feeding 780 ml 600 ml Output Urine Total 500 ml 1700 ml # Bowel Movements 1 Microbiology Date/Time Source Procedure Growth Status 06/17/18 14:50 Blood Blood Culture - Preliminary NO GROWTH AFTER 4 DAYS Resulted 06/17/18 20:00 Sputum Gram Stain - Final Complete 06/17/18 20:00 Sputum Culture - Final Escherichia Coli - Esbl Staphylococcus Aureus - Mrsa Complete 06/17/18 13:41 Stool VRE Culture - Final Enterococcus Faecalis - Vre Complete 06/17/18 14:40 Urine,Clean Catch Urine Culture - Final Escherichia Coli - Esbl Complete 06/17/18 13:41 Rectum - Final NO CARBAPENEM-RESISTANT ENTEROBACTERI... Complete Current Medications Medications (Trade) Dose Ordered Sig/Benjamin Route PRN Reason Start Time Stop Time Status Last Admin Dose Admin Acetaminophen (Tylenol) 650 mg Q4H PRN RECTAL Mild Pain/Temp > 100.5 06/21/18 07:15 07/19/18 07:14 06/21/18 06:56 Acetaminophen (Tylenol) 650 mg Q6H PRN GT For Pain 06/21/18 07:00 07/18/18 00:59 06/21/18 16:26 Albuterol/ Ipratropium (Albuterol/ Ipratropium) 3 ml Q6HRT HHN 06/21/18 07:00 06/22/18 18:59 06/22/18 08:33 Aspirin (ASA) 81 mg DAILY GT 06/21/18 09:00 07/18/18 22:59 06/22/18 08:14 Atorvastatin Calcium (Lipitor) 20 mg BEDTIME GT 06/21/18 21:00 07/18/18 20:59 06/21/18 20:39 Dextrose (Dextrose 50%) 25 ml STAT PRN IV Hypoglycemia 06/22/18 01:00 07/18/18 00:59 Dextrose (Dextrose 50%) 50 ml STAT PRN IV Hypoglycemia 06/22/18 01:00 07/18/18 00:59 Donepezil HCl (Aricept) 5 mg QHS GT 06/21/18 21:00 07/18/18 20:59 06/21/18 20:39 Enalapril Maleate (Vasotec) 5 mg DAILY GT 06/21/18 09:00 07/18/18 08:59 06/22/18 08:44 Famotidine (Pepcid) 20 mg DAILY GT 06/21/18 09:00 07/18/18 08:59 06/22/18 08:14 Gabapentin (Neurontin) 300 mg THREE TIMES A DAY GT 06/21/18 09:00 07/18/18 08:59 06/22/18 08:44 Heparin Sodium (Porcine) (Heparin 5000 units/ml) 5,000 units EVERY 12 HOURS SUBQ 06/21/18 09:00 07/18/18 08:59 06/22/18 10:14 Insulin Aspart (NovoLOG) EVERY 6 HOURS SUBQ 06/21/18 06:00 07/18/18 06:29 06/22/18 05:51 Iron Sucrose 100 mg/Sodium Chloride 60 ml @ 240 mls/hr BEDTIME IV 06/21/18 21:00 06/26/18 20:59 Levetiracetam (Keppra) 750 mg Q12HR GT 06/21/18 09:00 07/18/18 08:59 06/22/18 08:14 Levothyroxine Sodium (Synthroid) 125 mcg DAILY@0630 GT 06/21/18 06:30 07/18/18 06:29 06/22/18 05:50 Memantine (Namenda) 5 mg DAILY GT 06/21/18 09:00 07/18/18 08:59 06/22/18 08:14 Meropenem 1 gm/ Sodium Chloride 55 ml @ 110 mls/hr Q12HR IVPB 06/21/18 09:00 06/24/18 10:59 06/22/18 08:44 Vancomycin HCl (Vanco rx to dose) 1 ea DAILY PRN MISC Per rx protocol 06/21/18 09:00 07/17/18 16:59 Vancomycin/Sodium Chloride 250 ml @ 166.667 mls/hr Q12H IVPB 06/21/18 11:00 06/24/18 10:59 06/21/18 23:07 Laboratory Tests 06/22/18 06:16: Sodium Level 141, Potassium Level 4.0, Chloride Level 108H, Carbon Dioxide Level 27, Anion Gap 6, Blood Urea Nitrogen 16, Creatinine 0.6, Estimat Glomerular Filtration Rate , Glucose Level 142H, Calcium Level 9.0, Magnesium Level 1.9, Total Bilirubin 0.3, Aspartate Amino Transf (AST/SGOT) 27, Alanine Aminotransferase (ALT/SGPT) 38, Alkaline Phosphatase 88, Pro-B-Type Natriuretic Peptide 4151H, Total Protein 6.4, Albumin 1.7L, Globulin 4.7, Albumin/Globulin Ratio 0.4L 06/22/18 09:15: White Blood Count 6.7, Red Blood Count 3.34L, Hemoglobin 10.0L, Hematocrit 31.1L , Mean Corpuscular Volume 93, Mean Corpuscular Hemoglobin 29.9, Mean Corpuscular Hemoglobin Concent 32.1, Red Cell Distribution Width 12.1, Platelet Count 181, Mean Platelet Volume 7.1, Neutrophils (%) (Auto) 77.0H, Lymphocytes ( %) (Auto) 10.3L, Monocytes (%) (Auto) 7.6, Eosinophils (%) (Auto) 4.5H, Basophils (%) (Auto) 0.5 Height (Feet): 5 Height (Inches): 10.00 Weight (Pounds): 148 Objective exam stable ALEJANDRO COLLIER Jun 22, 2018 10:28
[2018-06-22] MEDS: Vancomycin 750mg/NS 250ml 250 ML IVPB SCH ×2 (10:59→23:32)
[2018-06-22 12:00] VITALS: BP 105/74
--- NOTE | 2018-06-22 12:22 | Infectious Diseases Prog Note ---
"Assessment/Plan Assessment/Plan antibiotics : vancomycin iv, meropenem A 1. MRSA | e.coli pneumonia 2. e.coli UTI 3. MRSA nasal colonization 4, rectal VRE colonization 5. dementia P 1. continue iv vancomycin 4 more days 2. continue meropenem 6 more days 3. will follow up cultures Subjective ROS Limited/Unobtainable: Yes Allergies: Coded Allergies: No Known Allergies (Unverified , 06/17/18) Objective Vital Signs Last 24 Hour Vital Signs Date Time Temp Pulse Resp B/P (MAP) Pulse Ox O2 Delivery O2 Flow Rate FiO2 06/22/18 12:00 97.8 68 20 105/74 (84) 97 97.8 06/22/18 09:00 Nasal Cannula 2.0 06/22/18 08:44 137/66 06/22/18 08:43 64 18 99 Nasal Cannula 2.0 28 06/22/18 08:33 64 18 98 Nasal Cannula 2.0 28 06/22/18 08:31 Nasal Cannula 2.0 28 06/22/18 08:30 98 Nasal Cannula 2.0 28 06/22/18 08:00 97.8 69 19 137/66 (89) 99 97.8 06/22/18 04:04 98.1 71 16 140/69 (92) 96 98.1 06/22/18 00:17 96.5 64 15 120/72 (88) 99 96.5 06/22/18 00:00 60 16 98 Nasal Cannula 2.0 06/21/18 23:49 62 16 98 Nasal Cannula 2.0 06/21/18 20:37 82 20 98 Nasal Cannula 2.0 06/21/18 20:27 98 Nasal Cannula 2.0 28 06/21/18 20:27 62 16 98 Nasal Cannula 2.0 28 06/21/18 20:27 Nasal Cannula 2.0 28 06/21/18 20:20 Nasal Cannula 2.0 06/21/18 19:55 97.5 57 17 130/70 (90) 98 97.5 06/21/18 16:56 98.4 06/21/18 16:26 98.4 06/21/18 16:00 98.1 58 20 127/56 (79) 98 98.1 06/21/18 13:12 79 20 98 Nasal Cannula 2.0 28 06/21/18 13:02 76 16 96 Nasal Cannula 2.0 28 Height (Feet): 5 Height (Inches): 10.00 Weight (Pounds): 148 Respiratory/Chest: lungs clear Cardiovascular: normal rate, regular rhythm, no gallop/murmur Abdomen: soft, non tender, other - GT, SPC, right 2nd toe ulcer with erythema Laboratory Tests Test 06/22/18 06:16 06/22/18 09:15 Sodium Level 141 MMOL/L (136-145) Potassium Level 4.0 MMOL/L (3.5-5.1) Chloride Level 108 MMOL/L (98-107) H Carbon Dioxide Level 27 MMOL/L (21-32) Anion Gap 6 mmol/L (5-15) Blood Urea Nitrogen 16 mg/dL (7-18) Creatinine 0.6 MG/DL (0.55-1.30) Estimat Glomerular Filtration Rate mL/min (>60) Glucose Level 142 MG/DL (74-106) H Calcium Level 9.0 MG/DL (8.5-10.1) Magnesium Level 1.9 MG/DL (1.8-2.4) Total Bilirubin 0.3 MG/DL (0.2-1.0) Aspartate Amino Transf (AST/SGOT) 27 U/L (15-37) Alanine Aminotransferase (ALT/SGPT) 38 U/L (12-78) Alkaline Phosphatase 88 U/L (46-116) Pro-B-Type Natriuretic Peptide 4151 pg/mL (0-125) H Total Protein 6.4 G/DL (6.4-8.2) Albumin 1.7 G/DL (3.4-5.0) L Globulin 4.7 g/dL Albumin/Globulin Ratio 0.4 (1.0-2.7) L White Blood Count 6.7 K/UL (4.8-10.8) Red Blood Count 3.34 M/UL (4.70-6.10) L Hemoglobin 10.0 G/DL (14.2-18.0) L Hematocrit 31.1 % (42.0-52.0) L Mean Corpuscular Volume 93 FL (80-99) Mean Corpuscular Hemoglobin 29.9 PG (27.0-31.0) Mean Corpuscular Hemoglobin Concent 32.1 G/DL (32.0-36.0) Red Cell Distribution Width 12.1 % (11.6-14.8) Platelet Count 181 K/UL (150-450) Mean Platelet Volume 7.1 FL (6.5-10.1) Neutrophils (%) (Auto) 77.0 % (45.0-75.0) H Lymphocytes (%) (Auto) 10.3 % (20.0-45.0) L Monocytes (%) (Auto) 7.6 % (1.0-10.0) Eosinophils (%) (Auto) 4.5 % (0.0-3.0) H Basophils (%) (Auto) 0.5 % (0.0-2.0) Current Medications Medications (Trade) Dose Ordered Sig/Benjamin Route PRN Reason Start Time Stop Time Status Last Admin Dose Admin Acetaminophen (Tylenol) 650 mg Q4H PRN RECTAL Mild Pain/Temp > 100.5 06/21/18 07:15 07/19/18 07:14 06/21/18 06:56 Acetaminophen (Tylenol) 650 mg Q6H PRN GT For Pain 06/21/18 07:00 07/18/18 00:59 06/21/18 16:26 Albuterol/ Ipratropium (Albuterol/ Ipratropium) 3 ml Q6HRT HHN 06/21/18 07:00 06/22/18 18:59 06/22/18 08:33 Aspirin (ASA) 81 mg DAILY GT 06/21/18 09:00 07/18/18 22:59 06/22/18 08:14 Atorvastatin Calcium (Lipitor) 20 mg BEDTIME GT 06/21/18 21:00 07/18/18 20:59 06/21/18 20:39 Dextrose (Dextrose 50%) 25 ml STAT PRN IV Hypoglycemia 06/22/18 01:00 07/18/18 00:59 Dextrose (Dextrose 50%) 50 ml STAT PRN IV Hypoglycemia 06/22/18 01:00 07/18/18 00:59 Donepezil HCl (Aricept) 5 mg QHS GT 06/21/18 21:00 07/18/18 20:59 06/21/18 20:39 Enalapril Maleate (Vasotec) 5 mg DAILY GT 06/21/18 09:00 07/18/18 08:59 8/1/18 08:44 Famotidine (Pepcid) 20 mg DAILY GT 06/21/18 09:00 07/18/18 08:59 06/22/18 08:14 Gabapentin (Neurontin) 300 mg THREE TIMES A DAY GT 06/21/18 09:00 07/18/18 08:59 06/22/18 08:44 Heparin Sodium (Porcine) (Heparin 5000 units/ml) 5,000 units EVERY 12 HOURS SUBQ 06/21/18 09:00 07/18/18 08:59 06/22/18 10:14 Insulin Aspart (NovoLOG) EVERY 6 HOURS SUBQ 06/21/18 06:00 07/18/18 06:29 06/22/18 12:00 Iron Sucrose 100 mg/Sodium Chloride 60 ml @ 240 mls/hr BEDTIME IV 06/21/18 21:00 06/26/18 20:59 Levetiracetam (Keppra) 750 mg Q12HR GT 06/21/18 09:00 07/18/18 08:59 06/22/18 08:14 Levothyroxine Sodium (Synthroid) 125 mcg DAILY@0630 GT 06/21/18 06:30 07/18/18 06:29 06/22/18 05:50 Memantine (Namenda) 5 mg DAILY GT 06/21/18 09:00 07/18/18 08:59 06/22/18 08:14 Meropenem 1 gm/ Sodium Chloride 55 ml @ 110 mls/hr Q12HR IVPB 06/21/18 09:00 06/24/18 10:59 06/22/18 08:44 Vancomycin HCl (Vanco rx to dose) 1 ea DAILY PRN MISC Per rx protocol 06/21/18 09:00 07/17/18 16:59 Vancomycin/Sodium Chloride 250 ml @ 166.667 mls/hr Q12H IVPB 06/21/18 11:00 06/24/18 10:59 06/22/18 10:59 FAZAL PORRAS Jun 22, 2018 12:22"
[2018-06-22 16:00] VITALS: BP 137/74
[2018-06-22 20:00] VITALS: BP 154/76
[2018-06-22] MEDS: Iron Sucrose 100 MG in NS 55 ML IV SCH (20:41)
[2018-06-22] MEDS: Atorvastatin 20mg tab GT SCH (21:25)
[2018-06-22] MEDS: Donepezil 5mg Tab GT SCH (21:25)
--- NOTE | 2018-06-22 22:40 | General Progress Note ---
Assessment/Plan Assessment/Plan Assessment - dysphagia - OBS - anemia - no w/u planned at this time due to dementia/poor health Recmmendations - GT care, TF - Elevate HOB - monitor CBC - await stool OB - family will call me if interested in GI w/u of anemia Subjective Allergies: Coded Allergies: No Known Allergies (Unverified , 06/17/18) Subjective above noted no events overnight H&H better today Objective Last 24 Hour Vital Signs Date Time Temp Pulse Resp B/P (MAP) Pulse Ox O2 Delivery O2 Flow Rate FiO2 06/22/18 20:36 Nasal Cannula 2.0 28 06/22/18 20:36 Nasal Cannula 2.0 28 06/22/18 20:35 97 Nasal Cannula 2.0 28 06/22/18 20:35 Nasal Cannula 2.0 28 06/22/18 20:00 97.9 56 20 154/76 (102) 99 97.9 06/22/18 16:00 98.1 63 20 137/74 (95) 98 98.1 06/22/18 14:26 Nasal Cannula 06/22/18 14:25 Nasal Cannula 06/22/18 12:00 97.8 68 20 105/74 (84) 97 97.8 06/22/18 09:00 Nasal Cannula 2.0 06/22/18 08:44 137/66 06/22/18 08:43 64 18 99 Nasal Cannula 2.0 28 06/22/18 08:33 64 18 98 Nasal Cannula 2.0 28 06/22/18 08:31 Nasal Cannula 2.0 28 06/22/18 08:30 98 Nasal Cannula 2.0 28 06/22/18 08:00 97.8 69 19 137/66 (89) 99 97.8 06/22/18 04:04 98.1 71 16 140/69 (92) 96 98.1 06/22/18 00:17 96.5 64 15 120/72 (88) 99 96.5 06/22/18 00:00 60 16 98 Nasal Cannula 2.0 28 06/21/18 23:49 62 16 98 Nasal Cannula 2.0 28 Intake and Output 06/21/18 06/22/18 19:00 07:00 Intake Total 1085 ml 1025.000 ml Output Total 500 ml 1700 ml Balance 585 ml -675.000 ml Free Water 120 ml IV Total 305 ml 305.000 ml Tube Feeding 780 ml 600 ml Output Urine Total 500 ml 1700 ml # Bowel Movements 1 Laboratory Tests 06/22/18 06:16: Sodium Level 141, Potassium Level 4.0, Chloride Level 108H, Carbon Dioxide Level 27, Anion Gap 6, Blood Urea Nitrogen 16, Creatinine 0.6, Estimat Glomerular Filtration Rate , Glucose Level 142H, Calcium Level 9.0, Magnesium Level 1.9, Total Bilirubin 0.3, Aspartate Amino Transf (AST/SGOT) 27, Alanine Aminotransferase (ALT/SGPT) 38, Alkaline Phosphatase 88, Pro-B-Type Natriuretic Peptide 4151H, Total Protein 6.4, Albumin 1.7L, Globulin 4.7, Albumin/Globulin Ratio 0.4L 06/22/18 09:15: White Blood Count 6.7, Red Blood Count 3.34L, Hemoglobin 10.0L, Hematocrit 31.1L , Mean Corpuscular Volume 93, Mean Corpuscular Hemoglobin 29.9, Mean Corpuscular Hemoglobin Concent 32.1, Red Cell Distribution Width 12.1, Platelet Count 181, Mean Platelet Volume 7.1, Neutrophils (%) (Auto) 77.0H, Lymphocytes ( %) (Auto) 10.3L, Monocytes (%) (Auto) 7.6, Eosinophils (%) (Auto) 4.5H, Basophils (%) (Auto) 0.5 Height (Feet): 5 Height (Inches): 10.00 Weight (Pounds): 148 Objective Elderly WM NCAT supple CTA RRR Abd Soft , (+) GT, (+) SP tube no edema OBS Herminia Aguilar MD Jun 22, 2018 22:40
[2018-06-23] VITALS: BP 130/71
[2018-06-23] MEDS: NovoLOG Insulin Flexpen SUBQ SCH ×4 (00:26→17:50)
--- NOTE | 2018-06-23 01:15 | Progress Note ---
DATE: 06/22/2018 CARDIOLOGY AND INTERNAL MEDICINE PROGRESS NOTE SUBJECTIVE: The patient is in no distress. He continues on IV antibiotics. He is afebrile, blood pressure 137/66, pulse 64, respiratory rate 18. The suprapubic catheter was changed yesterday. The G-tube was replaced several days ago. Both are functioning appropriately. OBJECTIVE: VITAL SIGNS: Blood pressure 154/76, pulse 56, respiratory rate 20. LUNGS: With few rhonchi. CARDIAC: Regular rhythm and rate. Normal S1, S2 with a fourth heart sound. ABDOMEN: Soft. G-tube intact. EXTREMITIES: No edema. LABORATORY DATA: White count 6.7, hemoglobin 10. Potassium 4, BUN 16, creatinine 0.6. Magnesium 1.9. Albumin 1.7. Pro-natriuretic peptide 4100. IMPRESSION: 1. Aspiration pneumonia. 2. E. coli and Staph aureus pneumonia. 3. E. coli urinary tract infection. 4. Severe protein-calorie malnutrition. 5. Hypomagnesemia, status post replacement therapy. 6. Acute on chronic diastolic congestive heart failure. 7. Acute myocardial ischemia, resolved. 8. Iron deficiency. 9. Anemia of chronic disease. PLAN: 1. Nutritional support by G-tube. 2. Conservative management. 3. Transfuse for hemoglobin less than 7 g. 4. Antimicrobials per Infectious Disease entry level sales consultant. 5. Respiratory hygiene. 6. Discontinue IV fluid. 7. Check natriuretic peptide assay. 8. Advance antihypertensives and anti-failure regimen. 9. Continue antiseizure therapy. Bryon Ramirez M.D. DR: Josué JOB#: [id number] CC:
[2018-06-23 04:00] VITALS: BP 144/64
[2018-06-23] MEDS: Levothyroxine 125mcg tab GT SCH (06:42)
[2018-06-23 08:00] VITALS: BP 134/66
[2018-06-23] MEDS: Aspirin Baby 81mg GT SCH (09:59)
[2018-06-23] MEDS: Memantine 5 MG TAB GT SCH (09:59)
[2018-06-23] MEDS: Enalapril 5mg tab GT SCH ×2 (09:59→21:13)
[2018-06-23] MEDS: levETIRAcetam 500mg/5ml Liquid GT SCH ×2 (10:00→21:12)
[2018-06-23] MEDS: Meropenem 1 GM in NS 55 ML IVPB SCH ×3 (10:00→23:03)
[2018-06-23] MEDS: Heparin 5000 units/ml inj SUBQ SCH ×2 (10:03→21:25)
[2018-06-23] MEDS: Gabapentin 300 MG/6 ML Soln GT SCH ×3 (10:35→17:51)
[2018-06-23] MEDS: Vancomycin 750mg/NS 250ml 250 ML IVPB SCH (11:09)
--- NOTE | 2018-06-23 11:52 | Infectious Diseases Prog Note ---
Assessment/Plan Assessment/Plan A; Sepsis improving E. Coli ESBL UTI E. 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 continue iv vancomycin 3 more days 2. continue meropenem 5 more day Subjective ROS Limited/Unobtainable: Yes Allergies: Coded Allergies: No Known Allergies (Unverified , 06/17/18) Objective Vital Signs Last 24 Hour Vital Signs Date Time Temp Pulse Resp B/P (MAP) Pulse Ox O2 Delivery O2 Flow Rate FiO2 06/23/18 09:59 134/66 06/23/18 08:10 Nasal Cannula 2.0 06/23/18 08:00 98.3 63 17 134/66 (88) 94 98.3 06/23/18 04:00 98.2 63 20 144/64 (90) 97 98.2 06/23/18 00:00 97.7 57 20 130/71 (90) 99 97.7 06/22/18 21:00 Nasal Cannula 2.0 06/22/18 20:36 Nasal Cannula 2.0 28 06/22/18 20:36 Nasal Cannula 2.0 28 06/22/18 20:35 97 Nasal Cannula 2.0 28 06/22/18 20:35 Nasal Cannula 2.0 28 06/22/18 20:00 97.9 56 20 154/76 (102) 99 97.9 06/22/18 16:00 98.1 63 20 137/74 (95) 98 98.1 06/22/18 14:26 Nasal Cannula 06/22/18 14:25 Nasal Cannula 06/22/18 12:00 97.8 68 20 105/74 (84) 97 97.8 Height (Feet): 5 Height (Inches): 10.00 Weight (Pounds): 148 HEENT: mucous membranes moist Respiratory/Chest: lungs clear Cardiovascular: normal rate Abdomen: soft, non tender, other - GT feeding Genitourinary: other - suprapubic catheter Extremities: no edema Neurologic/Psychiatric: aphasia Current Medications Medications (Trade) Dose Ordered Sig/Benjamin Route PRN Reason Start Time Stop Time Status Last Admin Dose Admin Acetaminophen (Tylenol) 650 mg Q4H PRN RECTAL Mild Pain/Temp > 100.5 06/21/18 07:15 07/19/18 07:14 06/21/18 06:56 Acetaminophen (Tylenol) 650 mg Q6H PRN GT For Pain 06/21/18 07:00 07/18/18 00:59 06/21/18 16:26 Aspirin (ASA) 81 mg DAILY GT 06/21/18 09:00 07/18/18 22:59 06/23/18 09:59 Atorvastatin Calcium (Lipitor) 20 mg BEDTIME GT 06/21/18 21:00 07/18/18 20:59 06/22/18 21:25 Dextrose (Dextrose 50%) 25 ml STAT PRN IV Hypoglycemia 06/22/18 01:00 07/18/18 00:59 Dextrose (Dextrose 50%) 50 ml STAT PRN IV Hypoglycemia 06/22/18 01:00 07/18/18 00:59 Donepezil HCl (Aricept) 5 mg QHS GT 06/21/18 21:00 07/18/18 20:59 06/22/18 21:25 Enalapril Maleate (Vasotec) 10 mg EVERY 12 HOURS GT 06/23/18 09:00 07/23/18 08:59 06/23/18 09:59 Famotidine (Pepcid) 20 mg DAILY GT 06/21/18 09:00 07/18/18 08:59 06/23/18 09:59 Gabapentin (Neurontin) 300 mg THREE TIMES A DAY GT 06/21/18 09:00 07/18/18 08:59 06/23/18 10:35 Heparin Sodium (Porcine) (Heparin 5000 units/ml) 5,000 units EVERY 12 HOURS SUBQ 06/21/18 09:00 07/18/18 08:59 06/23/18 10:03 Insulin Aspart (NovoLOG) EVERY 6 HOURS SUBQ 06/21/18 06:00 07/18/18 06:29 06/23/18 06:44 Iron Sucrose 100 mg/Sodium Chloride 60 ml @ 240 mls/hr BEDTIME IV 06/21/18 21:00 06/26/18 20:59 06/22/18 20:41 Levetiracetam (Keppra) 750 mg Q12HR GT 06/21/18 09:00 07/18/18 08:59 06/23/18 10:00 Levothyroxine Sodium (Synthroid) 125 mcg DAILY@0630 GT 06/21/18 06:30 07/18/18 06:29 06/23/18 06:42 Memantine (Namenda) 5 mg DAILY GT 06/21/18 09:00 07/18/18 08:59 06/23/18 09:59 Meropenem 1 gm/ Sodium Chloride 55 ml @ 110 mls/hr Q12HR IVPB 06/22/18 21:00 06/25/18 22:59 06/23/18 10:02 Vancomycin HCl (Vanco rx to dose) 1 ea DAILY PRN MISC Per rx protocol 06/21/18 09:00 07/17/18 16:59 Vancomycin/Sodium Chloride 250 ml @ 166.667 mls/hr Q12H IVPB 06/22/18 23:00 06/25/18 22:59 06/23/18 11:09 Slade Odonnell MD Jun 23, 2018 11:52
[2018-06-23 12:00] VITALS: BP 145/67
[2018-06-23 16:00] VITALS: BP 129/60
--- NOTE | 2018-06-23 16:52 | Urology Progress Note ---
Assessment/Plan Assessment/Plan 1. Urinary retention with chronic suprapubic tube. 2. BPH history. 3. Probable neurogenic bladder. 4. UTI colonization. 5. Hematuria. 6. Proteinuria. SP tube last changed 06/21 monitor clinically hand irrigate sp tube PRN abx as ordered cysto later Subjective Allergies: Coded Allergies: No Known Allergies (Unverified , 06/17/18) Subjective all noted, sp tube draining Objective Last 24 Hour Vital Signs Date Time Temp Pulse Resp B/P (MAP) Pulse Ox O2 Delivery O2 Flow Rate FiO2 06/23/18 16:00 97.7 58 18 129/60 (83) 97 97.7 06/23/18 12:00 98.0 62 18 145/67 (93) 97 98.0 06/23/18 09:59 134/66 06/23/18 08:10 Nasal Cannula 2.0 06/23/18 08:00 98.3 63 17 134/66 (88) 94 98.3 06/23/18 04:00 98.2 63 20 144/64 (90) 97 98.2 06/23/18 00:00 97.7 57 20 130/71 (90) 99 97.7 06/22/18 21:00 Nasal Cannula 2.0 06/22/18 20:36 Nasal Cannula 2.0 28 06/22/18 20:36 Nasal Cannula 2.0 28 06/22/18 20:35 97 Nasal Cannula 2.0 28 06/22/18 20:35 Nasal Cannula 2.0 28 06/22/18 20:00 97.9 56 20 154/76 (102) 99 97.9 Intake and Output 06/22/18 06/23/18 19:00 07:00 Intake Total 1175.000 ml 1325.000 ml Output Total 600 ml 1500 ml Balance 575.000 ml -175.000 ml Free Water 150 ml 240 ml IV Total 305.000 ml 365.000 ml Tube Feeding 720 ml 720 ml Output Urine Total 600 ml 1500 ml Microbiology Date/Time Source Procedure Growth Status 06/17/18 14:50 Blood Blood Culture - Final NO GROWTH AFTER 5 DAYS Complete 06/17/18 20:00 Sputum Gram Stain - Final Complete 06/17/18 20:00 Sputum Culture - Final Escherichia Coli - Esbl Staphylococcus Aureus - Mrsa Complete 06/17/18 13:41 Stool VRE Culture - Final Enterococcus Faecalis - Vre Complete 06/17/18 14:40 Urine,Clean Catch Urine Culture - Final Escherichia Coli - Esbl Complete 06/17/18 13:41 Rectum - Final NO CARBAPENEM-RESISTANT ENTEROBACTERI... Complete Current Medications Medications (Trade) Dose Ordered Sig/Benjamin Route PRN Reason Start Time Stop Time Status Last Admin Dose Admin Acetaminophen (Tylenol) 650 mg Q4H PRN RECTAL Mild Pain/Temp > 100.5 06/21/18 07:15 07/19/18 07:14 06/21/18 06:56 Acetaminophen (Tylenol) 650 mg Q6H PRN GT For Pain 06/21/18 07:00 07/18/18 00:59 06/21/18 16:26 Aspirin (ASA) 81 mg DAILY GT 06/21/18 09:00 07/18/18 22:59 06/23/18 09:59 Atorvastatin Calcium (Lipitor) 20 mg BEDTIME GT 06/21/18 21:00 07/18/18 20:59 06/22/18 21:25 Dextrose (Dextrose 50%) 25 ml STAT PRN IV Hypoglycemia 06/22/18 01:00 07/18/18 00:59 Dextrose (Dextrose 50%) 50 ml STAT PRN IV Hypoglycemia 06/22/18 01:00 07/18/18 00:59 Donepezil HCl (Aricept) 5 mg QHS GT 06/21/18 21:00 07/18/18 20:59 06/22/18 21:25 Enalapril Maleate (Vasotec) 10 mg EVERY 12 HOURS GT 06/23/18 09:00 07/23/18 08:59 06/23/18 09:59 Famotidine (Pepcid) 20 mg DAILY GT 06/21/18 09:00 07/18/18 08:59 06/23/18 09:59 Gabapentin (Neurontin) 300 mg THREE TIMES A DAY GT 06/21/18 09:00 07/18/18 08:59 06/23/18 13:23 Heparin Sodium (Porcine) (Heparin 5000 units/ml) 5,000 units EVERY 12 HOURS SUBQ 06/21/18 09:00 07/18/18 08:59 06/23/18 10:03 Insulin Aspart (NovoLOG) EVERY 6 HOURS SUBQ 06/21/18 06:00 07/18/18 06:29 06/23/18 12:31 Iron Sucrose 100 mg/Sodium Chloride 60 ml @ 240 mls/hr BEDTIME IV 06/21/18 21:00 06/26/18 20:59 06/22/18 20:41 Levetiracetam (Keppra) 750 mg Q12HR GT 06/21/18 09:00 07/18/18 08:59 06/23/18 10:00 Levothyroxine Sodium (Synthroid) 125 mcg DAILY@0630 GT 06/21/18 06:30 07/18/18 06:29 06/23/18 06:42 Memantine (Namenda) 5 mg DAILY GT 06/21/18 09:00 07/18/18 08:59 06/23/18 09:59 Meropenem 1 gm/ Sodium Chloride 55 ml @ 110 mls/hr Q12HR IVPB 06/22/18 21:00 06/28/18 00:00 06/23/18 10:02 Vancomycin HCl (Vanco rx to dose) 1 ea DAILY PRN MISC Per rx protocol 06/21/18 09:00 07/17/18 16:59 Vancomycin/Sodium Chloride 250 ml @ 166.667 mls/hr Q12H IVPB 06/22/18 23:00 06/25/18 22:59 06/23/18 11:09 Height (Feet): 5 Height (Inches): 10.00 Weight (Pounds): 148 Objective exam stable ARIANASHEILAALEJANDRO Jun 23, 2018 16:52
[2018-06-23] MEDS ORDERED: NS 275ml ONE (18:52)
[2018-06-23 20:00] VITALS: BP 130/70
[2018-06-23] MEDS: Iron Sucrose 100 MG in NS 55 ML IV SCH (21:00)
[2018-06-23] MEDS: Donepezil 5mg Tab GT SCH (21:12)
[2018-06-23] MEDS: Atorvastatin 20mg tab GT SCH (21:12)
--- NOTE | 2018-06-23 21:23 | General Progress Note ---
Assessment/Plan Assessment/Plan Assessment - dysphagia - OBS - anemia - no w/u planned at this time due to dementia/poor health Recmmendations - GT care, TF - Elevate HOB - monitor CBC - await stool OB - family will call me if interested in GI w/u of anemia Subjective Allergies: Coded Allergies: No Known Allergies (Unverified , 06/17/18) Subjective above noted no events overnight H&H better today Objective Last 24 Hour Vital Signs Date Time Temp Pulse Resp B/P (MAP) Pulse Ox O2 Delivery O2 Flow Rate FiO2 06/23/18 20:36 Nasal Cannula 2.0 28 06/23/18 20:36 97 Nasal Cannula 2.0 28 06/23/18 20:00 98.0 59 18 130/70 (90) 99 98.0 06/23/18 16:00 97.7 58 18 129/60 (83) 97 97.7 06/23/18 12:00 98.0 62 18 145/67 (93) 97 98.0 06/23/18 09:59 134/66 06/23/18 08:10 Nasal Cannula 2.0 06/23/18 08:00 98.3 63 17 134/66 (88) 94 98.3 06/23/18 04:00 98.2 63 20 144/64 (90) 97 98.2 06/23/18 00:00 97.7 57 20 130/71 (90) 99 97.7 Intake and Output 06/22/18 06/23/18 19:00 07:00 Intake Total 1175.000 ml 1325.000 ml Output Total 600 ml 1500 ml Balance 575.000 ml -175.000 ml Free Water 150 ml 240 ml IV Total 305.000 ml 365.000 ml Tube Feeding 720 ml 720 ml Output Urine Total 600 ml 1500 ml Height (Feet): 5 Height (Inches): 10.00 Weight (Pounds): 148 Objective Elderly WM NCAT supple CTA RRR Abd Soft , (+) GT, (+) SP tube no edema OBS Herminia Aguilar MD Jun 23, 2018 21:23
--- NOTE | 2018-06-23 23:30 | Progress Note ---
DATE: 06/23/2018 INTERNAL MEDICINE PROGRESS NOTE SUBJECTIVE: The patient remains on dual antibiotics for multiple infections with virulent pathogen. No respiratory distress. He is status post G-tube replacement as well as suprapubic catheter replacement. The patient is remaining afebrile. OBJECTIVE: VITAL SIGNS: Blood pressure 134/66, pulse 63, respirations 17, and afebrile. LUNGS: Coarse breath sounds. HEART: Regular rhythm and rate. Normal S1, S2 with a fourth heart sound. ABDOMEN: Soft. G-tube intact. Suprapubic catheter site clean and dry EXTREMITIES: With no edema. IMPRESSION: 1. Sepsis, improved. 2. Hypovolemia and dehydration, corrected. 3. Extended-spectrum beta-lactamases Escherichia coli urinary tract infection. 4. Suprapubic catheter. 5. Cerebrovascular disease with dementia. 6. Escherichia coli and Staph aureus pneumonia. 7. 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 PLAN: 1. Antibiotics per Infectious Disease executive consultant. 2. Respiratory hygiene. 3. Skin care. 4. Nutrition by feeding tube. 5. DVT and stress ulcer prophylaxes. Bryon Ramirez M.D. DR: DARRON JOB#: [id number] CC:
[2018-06-24] VITALS: BP 146/68
[2018-06-24] MEDS: Vancomycin 750mg/NS 250ml 250 ML IVPB SCH ×2 (00:58→11:56)
[2018-06-24] MEDS: NovoLOG Insulin Flexpen SUBQ SCH ×4 (01:01→18:37)
[2018-06-24 04:00] VITALS: BP 132/68
[2018-06-24] MEDS: Levothyroxine 125mcg tab GT SCH (06:24)
[2018-06-24 08:00] VITALS: BP 124/58
[2018-06-24] MEDS: Enalapril 5mg tab GT SCH (09:00)
[2018-06-24] MEDS: levETIRAcetam 500mg/5ml Liquid GT SCH ×2 (09:53→21:45)
[2018-06-24] MEDS: Aspirin Baby 81mg GT SCH (09:53)
[2018-06-24] MEDS: Heparin 5000 units/ml inj SUBQ SCH ×2 (09:55→21:48)
[2018-06-24] MEDS: Meropenem 1 GM in NS 55 ML IVPB SCH ×2 (09:57→22:39)
[2018-06-24] MEDS: Memantine 5 MG TAB GT SCH (09:58)
[2018-06-24] MEDS: Gabapentin 300 MG/6 ML Soln GT SCH ×3 (10:02→18:33)
--- NOTE | 2018-06-24 10:40 | Infectious Diseases Prog Note ---
Assessment/Plan Assessment/Plan A; Sepsis improving E. Coli ESBL UTI E. 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 continue iv vancomycin 2 more days 2. continue meropenem 4 more days Subjective ROS Limited/Unobtainable: Yes Allergies: Coded Allergies: No Known Allergies (Unverified , 06/17/18) Objective Vital Signs Last 24 Hour Vital Signs Date Time Temp Pulse Resp B/P (MAP) Pulse Ox O2 Delivery O2 Flow Rate FiO2 06/24/18 10:13 124/58 06/24/18 08:00 98.7 57 18 124/58 (80) 97 98.7 06/24/18 04:00 97.0 64 22 132/68 (89) 98 97.0 06/24/18 00:00 98.0 63 20 146/68 (94) 99 98.0 06/23/18 21:13 130/70 06/23/18 21:00 Nasal Cannula 2.0 06/23/18 20:36 Nasal Cannula 2.0 28 06/23/18 20:36 97 Nasal Cannula 2.0 28 06/23/18 20:00 98.0 59 18 130/70 (90) 99 98.0 06/23/18 16:00 97.7 58 18 129/60 (83) 97 97.7 06/23/18 12:00 98.0 62 18 145/67 (93) 97 98.0 Height (Feet): 5 Height (Inches): 10.00 Weight (Pounds): 148 General Appearance: no acute distress HEENT: mucous membranes moist Respiratory/Chest: lungs clear Cardiovascular: normal rate Abdomen: soft, non tender, other - GT feeding Extremities: no edema Neurologic/Psychiatric: aphasia Current Medications Medications (Trade) Dose Ordered Sig/Benjamin Route PRN Reason Start Time Stop Time Status Last Admin Dose Admin Acetaminophen (Tylenol) 650 mg Q4H PRN RECTAL Mild Pain/Temp > 100.5 06/21/18 07:15 07/19/18 07:14 06/21/18 06:56 Acetaminophen (Tylenol) 650 mg Q6H PRN GT For Pain 06/21/18 07:00 07/18/18 00:59 06/21/18 16:26 Aspirin (ASA) 81 mg DAILY GT 06/21/18 09:00 07/18/18 22:59 06/24/18 09:53 Atorvastatin Calcium (Lipitor) 20 mg BEDTIME GT 06/21/18 21:00 07/18/18 20:59 06/23/18 21:12 Dextrose (Dextrose 50%) 25 ml STAT PRN IV Hypoglycemia 06/22/18 01:00 07/18/18 00:59 Dextrose (Dextrose 50%) 50 ml STAT PRN IV Hypoglycemia 06/22/18 01:00 07/18/18 00:59 Donepezil HCl (Aricept) 5 mg QHS GT 06/21/18 21:00 07/18/18 20:59 06/23/18 21:12 Enalapril Maleate (Vasotec) 10 mg EVERY 12 HOURS GT 06/24/18 09:00 07/23/18 08:59 06/24/18 10:13 Famotidine (Pepcid) 20 mg DAILY GT 06/21/18 09:00 07/18/18 08:59 06/24/18 09:53 Gabapentin (Neurontin) 300 mg THREE TIMES A DAY GT 06/21/18 09:00 07/18/18 08:59 06/24/18 10:02 Heparin Sodium (Porcine) (Heparin 5000 units/ml) 5,000 units EVERY 12 HOURS SUBQ 06/21/18 09:00 07/18/18 08:59 06/24/18 09:55 Insulin Aspart (NovoLOG) EVERY 6 HOURS SUBQ 06/21/18 06:00 07/18/18 06:29 06/24/18 06:31 Iron Sucrose 100 mg/Sodium Chloride 60 ml @ 240 mls/hr BEDTIME IV 06/21/18 21:00 06/26/18 20:59 06/23/18 21:00 Levetiracetam (Keppra) 750 mg Q12HR GT 06/21/18 09:00 07/18/18 08:59 06/24/18 09:53 Levothyroxine Sodium (Synthroid) 125 mcg DAILY@0630 GT 06/21/18 06:30 07/18/18 06:29 06/24/18 06:24 Memantine (Namenda) 5 mg DAILY GT 06/21/18 09:00 07/18/18 08:59 06/24/18 09:58 Meropenem 1 gm/ Sodium Chloride 55 ml @ 110 mls/hr Q12HR IVPB 06/22/18 21:00 06/28/18 00:00 06/24/18 09:57 Vancomycin HCl (Vanco rx to dose) 1 ea DAILY PRN MISC Per rx protocol 06/21/18 09:00 07/17/18 16:59 Vancomycin/Sodium Chloride 250 ml @ 166.667 mls/hr Q12H IVPB 06/22/18 23:00 06/25/18 22:59 06/24/18 00:58 Slade Odonnell MD Jun 24, 2018 10:40
[2018-06-24 12:00] VITALS: BP 127/62
--- NOTE | 2018-06-24 14:26 | Urology Progress Note ---
Assessment/Plan Assessment/Plan 1. Urinary retention with chronic suprapubic tube. 2. BPH history. 3. Probable neurogenic bladder. 4. UTI colonization. 5. Hematuria. 6. Proteinuria. SP tube last changed 06/21 monitor clinically hand irrigate sp tube PRN abx as ordered cysto later consider renal imaging, u/s or CT Subjective Allergies: Coded Allergies: No Known Allergies (Unverified , 06/17/18) Subjective all noted, sp tube draining Objective Last 24 Hour Vital Signs Date Time Temp Pulse Resp B/P (MAP) Pulse Ox O2 Delivery O2 Flow Rate FiO2 06/24/18 14:09 Nasal Cannula 2.0 06/24/18 12:00 97.8 26 19 127/62 (83) 98 97.8 06/24/18 10:13 124/58 06/24/18 08:00 98.7 57 18 124/58 (80) 97 98.7 06/24/18 04:00 97.0 64 22 132/68 (89) 98 97.0 06/24/18 00:00 98.0 63 20 146/68 (94) 99 98.0 06/23/18 21:13 130/70 06/23/18 21:00 Nasal Cannula 2.0 06/23/18 20:36 Nasal Cannula 2.0 28 06/23/18 20:36 97 Nasal Cannula 2.0 28 06/23/18 20:00 98.0 59 18 130/70 (90) 99 98.0 06/23/18 16:00 97.7 58 18 129/60 (83) 97 97.7 Intake and Output 06/23/18 06/24/18 19:00 07:00 Intake Total 780 ml 180 ml Output Total 1375 ml 1375 ml Balance -595 ml -1195 ml Intake Oral 0 ml Free Water 120 ml 120 ml Tube Feeding 660 ml 60 ml Output Urine Total 1375 ml 1375 ml # Voids 1 # Bowel Movements 1 1 Microbiology Date/Time Source Procedure Growth Status 06/17/18 14:50 Blood Blood Culture - Final NO GROWTH AFTER 5 DAYS Complete 06/17/18 20:00 Sputum Gram Stain - Final Complete 06/17/18 20:00 Sputum Culture - Final Escherichia Coli - Esbl Staphylococcus Aureus - Mrsa Complete 06/17/18 13:41 Stool VRE Culture - Final Enterococcus Faecalis - Vre Complete 06/17/18 14:40 Urine,Clean Catch Urine Culture - Final Escherichia Coli - Esbl Complete 06/17/18 13:41 Rectum - Final NO CARBAPENEM-RESISTANT ENTEROBACTERI... Complete Current Medications Medications (Trade) Dose Ordered Sig/Benjamin Route PRN Reason Start Time Stop Time Status Last Admin Dose Admin Acetaminophen (Tylenol) 650 mg Q4H PRN RECTAL Mild Pain/Temp > 100.5 06/21/18 07:15 07/19/18 07:14 06/21/18 06:56 Acetaminophen (Tylenol) 650 mg Q6H PRN GT For Pain 06/21/18 07:00 07/18/18 00:59 06/21/18 16:26 Aspirin (ASA) 81 mg DAILY GT 06/21/18 09:00 07/18/18 22:59 06/24/18 09:53 Atorvastatin Calcium (Lipitor) 20 mg BEDTIME GT 06/21/18 21:00 07/18/18 20:59 06/23/18 21:12 Dextrose (Dextrose 50%) 25 ml STAT PRN IV Hypoglycemia 06/22/18 01:00 07/18/18 00:59 Dextrose (Dextrose 50%) 50 ml STAT PRN IV Hypoglycemia 06/22/18 01:00 07/18/18 00:59 Donepezil HCl (Aricept) 5 mg QHS GT 06/21/18 21:00 07/18/18 20:59 06/23/18 21:12 Enalapril Maleate (Vasotec) 10 mg EVERY 12 HOURS GT 06/24/18 09:00 07/23/18 08:59 06/24/18 10:13 Famotidine (Pepcid) 20 mg DAILY GT 06/21/18 09:00 07/18/18 08:59 06/24/18 09:53 Gabapentin (Neurontin) 300 mg THREE TIMES A DAY GT 06/21/18 09:00 07/18/18 08:59 06/24/18 12:08 Heparin Sodium (Porcine) (Heparin 5000 units/ml) 5,000 units EVERY 12 HOURS SUBQ 06/21/18 09:00 07/18/18 08:59 06/24/18 09:55 Insulin Aspart (NovoLOG) EVERY 6 HOURS SUBQ 06/21/18 06:00 07/18/18 06:29 06/24/18 12:09 Iron Sucrose 100 mg/Sodium Chloride 60 ml @ 240 mls/hr BEDTIME IV 06/21/18 21:00 06/26/18 20:59 06/23/18 21:00 Levetiracetam (Keppra) 750 mg Q12HR GT 06/21/18 09:00 07/18/18 08:59 06/24/18 09:53 Levothyroxine Sodium (Synthroid) 125 mcg DAILY@0630 GT 06/21/18 06:30 07/18/18 06:29 06/24/18 06:24 Memantine (Namenda) 5 mg DAILY GT 06/21/18 09:00 07/18/18 08:59 06/24/18 09:58 Meropenem 1 gm/ Sodium Chloride 55 ml @ 110 mls/hr Q12HR IVPB 06/22/18 21:00 06/28/18 00:00 06/24/18 09:57 Vancomycin HCl (Vanco rx to dose) 1 ea DAILY PRN MISC Per rx protocol 06/21/18 09:00 07/17/18 16:59 Vancomycin/Sodium Chloride 250 ml @ 166.667 mls/hr Q12H IVPB 06/22/18 23:00 06/25/18 22:59 06/24/18 11:56 Height (Feet): 5 Height (Inches): 10.00 Weight (Pounds): 148 Objective exam stable ALEJANDRO COLLIER Jun 24, 2018 14:25
[2018-06-24 16:00] VITALS: BP 132/69
--- NOTE | 2018-06-24 19:47 | General Progress Note ---
Assessment/Plan Assessment/Plan Assessment - dysphagia - OBS - anemia - no w/u planned at this time due to dementia/poor health Recmmendations - GT care, TF - Elevate HOB - monitor CBC - await stool OB - family will call me if interested in GI w/u of anemia - I will see patient next week Subjective Allergies: Coded Allergies: No Known Allergies (Unverified , 06/17/18) Subjective above noted no events overnight less responsive Objective Last 24 Hour Vital Signs Date Time Temp Pulse Resp B/P (MAP) Pulse Ox O2 Delivery O2 Flow Rate FiO2 06/24/18 16:00 98.2 74 19 132/69 (90) 95 98.2 06/24/18 14:09 Nasal Cannula 2.0 06/24/18 12:00 97.8 26 19 127/62 (83) 98 97.8 06/24/18 10:13 124/58 06/24/18 08:00 98.7 57 18 124/58 (80) 97 98.7 06/24/18 04:00 97.0 64 22 132/68 (89) 98 97.0 06/24/18 00:00 98.0 63 20 146/68 (94) 99 98.0 06/23/18 21:13 130/70 06/23/18 21:00 Nasal Cannula 2.0 06/23/18 20:36 Nasal Cannula 2.0 28 06/23/18 20:36 97 Nasal Cannula 2.0 28 06/23/18 20:00 98.0 59 18 130/70 (90) 99 98.0 Intake and Output 06/23/18 06/24/18 19:00 07:00 Intake Total 780 ml 180 ml Output Total 1375 ml 1375 ml Balance -595 ml -1195 ml Intake Oral 0 ml Free Water 120 ml 120 ml Tube Feeding 660 ml 60 ml Output Urine Total 1375 ml 1375 ml # Voids 1 # Bowel Movements 1 1 Height (Feet): 5 Height (Inches): 10.00 Weight (Pounds): 148 Objective Elderly WM NCAT supple CTA RRR Abd Soft , (+) GT, (+) SP tube no edema OBS Herminia Aguilar MD Jun 24, 2018 19:47
[2018-06-24 20:00] VITALS: BP 117/58
[2018-06-24] MEDS: Atorvastatin 20mg tab GT SCH (21:45)
[2018-06-24] MEDS: Donepezil 5mg Tab GT SCH (21:45)
[2018-06-24] MEDS: Iron Sucrose 100 MG in NS 55 ML IV SCH (21:46)
[2018-06-25] VITALS: BP 130/59
[2018-06-25] MEDS: NovoLOG Insulin Flexpen SUBQ SCH ×4 (01:04→17:46)
[2018-06-25 04:00] VITALS: BP 150/59
[2018-06-25] MEDS: Levothyroxine 125mcg tab GT SCH (06:47)
[2018-06-25 08:00] VITALS: BP 148/62
[2018-06-25] MEDS: Aspirin Baby 81mg GT SCH (08:57)
[2018-06-25] MEDS: Memantine 5 MG TAB GT SCH (08:58)
[2018-06-25] MEDS: levETIRAcetam 500mg/5ml Liquid GT SCH ×2 (08:59→21:51)
[2018-06-25] MEDS ORDERED: Vancomycin 1250mg/D5W 250ml IVPB SCH (09:00)
[2018-06-25] MEDS: Heparin 5000 units/ml inj SUBQ SCH ×2 (09:02→21:54)
[2018-06-25] MEDS: Gabapentin 300 MG/6 ML Soln GT SCH ×3 (09:11→17:45)
[2018-06-25] MEDS: Meropenem 1 GM in NS 55 ML IVPB SCH ×2 (09:22→22:54)
--- NOTE | 2018-06-25 10:14 | Urology Progress Note ---
Assessment/Plan Assessment/Plan 1. Urinary retention with chronic suprapubic tube. 2. BPH history. 3. Probable neurogenic bladder. 4. UTI colonization. 5. Hematuria. 6. Proteinuria. SP tube last changed 06/21 monitor clinically hand irrigate sp tube PRN abx as ordered cysto later consider renal imaging, u/s or CT Subjective Allergies: Coded Allergies: No Known Allergies (Unverified , 06/17/18) Subjective all noted, sp tube draining Objective Last 24 Hour Vital Signs Date Time Temp Pulse Resp B/P (MAP) Pulse Ox O2 Delivery O2 Flow Rate FiO2 06/25/18 08:57 148/62 06/25/18 07:44 97 Nasal Cannula 2.0 28 06/25/18 07:44 Nasal Cannula 2.0 28 06/25/18 04:00 98.2 50 20 150/59 (89) 93 98.2 06/25/18 00:00 98.1 76 20 130/59 (82) 93 98.1 06/24/18 21:00 Nasal Cannula 2.0 06/24/18 21:00 117/58 06/24/18 20:00 97.2 58 19 117/58 (77) 98 97.2 06/24/18 16:00 98.2 74 19 132/69 (90) 95 98.2 06/24/18 14:09 Nasal Cannula 2.0 06/24/18 12:00 97.8 26 19 127/62 (83) 98 97.8 Intake and Output 06/24/18 06/25/18 19:00 07:00 Intake Total 760 ml Output Total 950 ml Balance 760 ml -950 ml Free Water 100 ml Tube Feeding 660 ml Output Urine Total 950 ml Microbiology Date/Time Source Procedure Growth Status 06/17/18 14:50 Blood Blood Culture - Final NO GROWTH AFTER 5 DAYS Complete 06/17/18 20:00 Sputum Gram Stain - Final Complete 06/17/18 20:00 Sputum Culture - Final Escherichia Coli - Esbl Staphylococcus Aureus - Mrsa Complete 06/17/18 13:41 Stool VRE Culture - Final Enterococcus Faecalis - Vre Complete 06/17/18 14:40 Urine,Clean Catch Urine Culture - Final Escherichia Coli - Esbl Complete 06/17/18 13:41 Rectum - Final NO CARBAPENEM-RESISTANT ENTEROBACTERI... Complete Current Medications Medications (Trade) Dose Ordered Sig/Benjamin Route PRN Reason Start Time Stop Time Status Last Admin Dose Admin Acetaminophen (Tylenol) 650 mg Q4H PRN RECTAL Mild Pain/Temp > 100.5 06/21/18 07:15 07/19/18 07:14 06/21/18 06:56 Acetaminophen (Tylenol) 650 mg Q6H PRN GT For Pain 06/21/18 07:00 07/18/18 00:59 06/21/18 16:26 Aspirin (ASA) 81 mg DAILY GT 06/21/18 09:00 07/18/18 22:59 06/25/18 08:57 Atorvastatin Calcium (Lipitor) 20 mg BEDTIME GT 06/21/18 21:00 07/18/18 20:59 06/24/18 21:45 Dextrose (Dextrose 50%) 25 ml STAT PRN IV Hypoglycemia 06/22/18 01:00 07/18/18 00:59 Dextrose (Dextrose 50%) 50 ml STAT PRN IV Hypoglycemia 06/22/18 01:00 07/18/18 00:59 Donepezil HCl (Aricept) 5 mg QHS GT 06/21/18 21:00 07/18/18 20:59 06/24/18 21:45 Enalapril Maleate (Vasotec) 10 mg EVERY 12 HOURS GT 06/24/18 09:00 07/23/18 08:59 06/25/18 08:57 Famotidine (Pepcid) 20 mg DAILY GT 06/21/18 09:00 07/18/18 08:59 06/25/18 08:57 Gabapentin (Neurontin) 300 mg THREE TIMES A DAY GT 06/21/18 09:00 07/18/18 08:59 06/25/18 09:11 Heparin Sodium (Porcine) (Heparin 5000 units/ml) 5,000 units EVERY 12 HOURS SUBQ 06/21/18 09:00 07/18/18 08:59 06/25/18 09:02 Insulin Aspart (NovoLOG) EVERY 6 HOURS SUBQ 06/21/18 06:00 07/18/18 06:29 06/25/18 06:45 Iron Sucrose 100 mg/Sodium Chloride 60 ml @ 240 mls/hr BEDTIME IV 06/21/18 21:00 06/26/18 20:59 06/24/18 21:46 Levetiracetam (Keppra) 750 mg Q12HR GT 06/21/18 09:00 07/18/18 08:59 06/25/18 08:59 Levothyroxine Sodium (Synthroid) 125 mcg DAILY@0630 GT 06/21/18 06:30 07/18/18 06:29 06/25/18 06:47 Memantine (Namenda) 5 mg DAILY GT 06/21/18 09:00 07/18/18 08:59 06/25/18 08:58 Meropenem 1 gm/ Sodium Chloride 55 ml @ 110 mls/hr Q12HR IVPB 06/22/18 21:00 06/28/18 00:00 06/25/18 09:22 Vancomycin HCl (Vanco rx to dose) 1 ea DAILY PRN MISC Per rx protocol 06/21/18 09:00 07/17/18 16:59 Vancomycin HCl/ Dextrose 250 ml @ 166.667 mls/hr Q24H IVPB 06/25/18 09:00 06/30/18 08:59 Laboratory Tests 06/24/18 22:47: Vancomycin Level Trough 27.3H Height (Feet): 5 Height (Inches): 10.00 Weight (Pounds): 148 Objective exam stable GIOKATHI XIEAK Jun 25, 2018 10:14
--- NOTE | 2018-06-25 10:44 | Infectious Diseases Prog Note ---
"Assessment/Plan Assessment/Plan antibiotics : vancomycin iv, meropenem A 1. MRSA | e.coli pneumonia 2. e.coli UTI 3. MRSA nasal colonization 4, rectal VRE colonization 5. dementia P 1. continue iv vancomycin 1 more day 2. continue meropenem 3 more days 3. stool for c.diff 4. will follow up cultures Subjective Constitutional: Denies: fever, chills Respiratory: Denies: shortness of breath, dry cough Gastrointestinal/Abdominal: Reports: diarrhea; Denies: nausea, vomiting Musculoskeletal: Denies: pain Allergies: Coded Allergies: No Known Allergies (Unverified , 06/17/18) Objective Vital Signs Last 24 Hour Vital Signs Date Time Temp Pulse Resp B/P (MAP) Pulse Ox O2 Delivery O2 Flow Rate FiO2 06/25/18 08:57 148/62 06/25/18 07:44 97 Nasal Cannula 2.0 28 06/25/18 07:44 Nasal Cannula 2.0 28 06/25/18 04:00 98.2 50 20 150/59 (89) 93 98.2 06/25/18 00:00 98.1 76 20 130/59 (82) 93 98.1 06/24/18 21:00 Nasal Cannula 2.0 06/24/18 21:00 117/58 06/24/18 20:00 97.2 58 19 117/58 (77) 98 97.2 06/24/18 16:00 98.2 74 19 132/69 (90) 95 98.2 06/24/18 14:09 Nasal Cannula 2.0 06/24/18 12:00 97.8 26 19 127/62 (83) 98 97.8 Height (Feet): 5 Height (Inches): 10.00 Weight (Pounds): 148 Respiratory/Chest: lungs clear Cardiovascular: normal rate, regular rhythm, no gallop/murmur Abdomen: soft, non tender, other - GT, SPC Extremities: no edema Laboratory Tests Test 06/24/18 22:47 Vancomycin Level Trough 27.3 ug/mL (5.0-12.0) H Current Medications Medications (Trade) Dose Ordered Sig/Benjamin Route PRN Reason Start Time Stop Time Status Last Admin Dose Admin Acetaminophen (Tylenol) 650 mg Q4H PRN RECTAL Mild Pain/Temp > 100.5 06/21/18 07:15 07/19/18 07:14 7/31/18 06:56 Acetaminophen (Tylenol) 650 mg Q6H PRN GT For Pain 06/21/18 07:00 07/18/18 00:59 06/21/18 16:26 Aspirin (ASA) 81 mg DAILY GT 06/21/18 09:00 07/18/18 22:59 06/25/18 08:57 Atorvastatin Calcium (Lipitor) 20 mg BEDTIME GT 06/21/18 21:00 07/18/18 20:59 06/24/18 21:45 Dextrose (Dextrose 50%) 25 ml STAT PRN IV Hypoglycemia 06/22/18 01:00 07/18/18 00:59 Dextrose (Dextrose 50%) 50 ml STAT PRN IV Hypoglycemia 06/22/18 01:00 07/18/18 00:59 Donepezil HCl (Aricept) 5 mg QHS GT 06/21/18 21:00 07/18/18 20:59 06/24/18 21:45 Enalapril Maleate (Vasotec) 10 mg EVERY 12 HOURS GT 06/24/18 09:00 07/23/18 08:59 06/25/18 08:57 Famotidine (Pepcid) 20 mg DAILY GT 06/21/18 09:00 07/18/18 08:59 06/25/18 08:57 Gabapentin (Neurontin) 300 mg THREE TIMES A DAY GT 06/21/18 09:00 07/18/18 08:59 06/25/18 09:11 Heparin Sodium (Porcine) (Heparin 5000 units/ml) 5,000 units EVERY 12 HOURS SUBQ 06/21/18 09:00 07/18/18 08:59 06/25/18 09:02 Insulin Aspart (NovoLOG) EVERY 6 HOURS SUBQ 06/21/18 06:00 07/18/18 06:29 06/25/18 06:45 Iron Sucrose 100 mg/Sodium Chloride 60 ml @ 240 mls/hr BEDTIME IV 06/21/18 21:00 06/26/18 20:59 06/24/18 21:46 Levetiracetam (Keppra) 750 mg Q12HR GT 06/21/18 09:00 07/18/18 08:59 06/25/18 08:59 Levothyroxine Sodium (Synthroid) 125 mcg DAILY@0630 GT 06/21/18 06:30 07/18/18 06:29 06/25/18 06:47 Memantine (Namenda) 5 mg DAILY GT 06/21/18 09:00 07/18/18 08:59 06/25/18 08:58 Meropenem 1 gm/ Sodium Chloride 55 ml @ 110 mls/hr Q12HR IVPB 06/22/18 21:00 06/28/18 00:00 06/25/18 09:22 Vancomycin HCl (Vanco rx to dose) 1 ea DAILY PRN MISC Per rx protocol 06/21/18 09:00 07/17/18 16:59 Vancomycin HCl/ Dextrose 250 ml @ 166.667 mls/hr Q24H IVPB 06/25/18 09:00 06/30/18 08:59 06/25/18 10:34 FAZAL PORRAS Jun 25, 2018 10:44"
[2018-06-25 12:00] VITALS: BP 130/65
[2018-06-25 16:00] VITALS: BP 118/56
[2018-06-25 20:00] VITALS: BP 127/61
[2018-06-25] MEDS: Iron Sucrose 100 MG in NS 55 ML IV SCH (21:51)
[2018-06-25] MEDS: Atorvastatin 20mg tab GT SCH (21:51)
[2018-06-25] MEDS: Donepezil 5mg Tab GT SCH (21:52)
[2018-06-26] VITALS: BP 113/74
[2018-06-26] MEDS: NovoLOG Insulin Flexpen SUBQ SCH ×5 (00:17→23:57)
[2018-06-26 04:00] VITALS: BP 126/58
[2018-06-26] MEDS: Levothyroxine 125mcg tab GT SCH (06:30)
[2018-06-26 07:52] LABS: BASOPHILS % (AUTO) 0.5 % (0.0-2.0); EOSINOPHILS % (AUTO) 4.9 % (0.0-3.0); HEMATOCRIT 30.5 % (42.0-52.0); HEMOGLOBIN 9.8 G/DL (14.2-18.0); LYMPHOCYTES % (AUTO) 13.5 % (20.0-45.0); MEAN CORPUSCULAR VOLUME 95 FL (80-99); NEUTROPHILS % (AUTO) 77.2 % (45.0-75.0); PLATELET COUNT 319 K/UL (150-450); RED BLOOD COUNT 3.22 M/UL (4.70-6.10); RED CELL DISTRIBUTION WIDTH 12.3 % (11.6-14.8)
[2018-06-26 08:00] VITALS: BP 144/68
[2018-06-26 08:21] LABS: ALANINE AMINOTRANSFERASE 68 U/L (12-78); ALBUMIN 1.7 G/DL (3.4-5.0); ALBUMIN/GLOBULIN RATIO 0.3 (1.0-2.7); ALKALINE PHOSPHATASE 125 U/L (46-116); ANION GAP 1 mmol/L (5-15); ASPARTATE AMINO TRANSFERASE 56 U/L (15-37); BILIRUBIN,TOTAL 0.2 MG/DL (0.2-1.0); BLOOD UREA NITROGEN 22 mg/dL (7-18); CALCIUM 9.5 MG/DL (8.5-10.1); CARBON DIOXIDE 35 MMOL/L (21-32); CHLORIDE 104 MMOL/L (98-107); CREATININE 0.8 MG/DL (0.55-1.30); POTASSIUM 4.5 MMOL/L (3.5-5.1); SODIUM 140 MMOL/L (136-145)
[2018-06-26] MEDS: Aspirin Baby 81mg GT SCH (08:56)
[2018-06-26] MEDS: Memantine 5 MG TAB GT SCH (08:56)
[2018-06-26] MEDS: levETIRAcetam 500mg/5ml Liquid GT SCH ×2 (08:57→20:56)
[2018-06-26] MEDS: Gabapentin 300 MG/6 ML Soln GT SCH ×3 (08:57→17:19)
[2018-06-26] MEDS: Meropenem 1 GM in NS 55 ML IVPB SCH ×2 (08:58→21:22)
[2018-06-26] MEDS: Heparin 5000 units/ml inj SUBQ SCH ×2 (09:02→20:58)
--- NOTE | 2018-06-26 09:28 | Infectious Diseases Prog Note ---
Assessment/Plan Assessment/Plan A; Sepsis improving E. Coli ESBL UTI E. 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 discontinue iv vancomycin 2. continue meropenem 2 more days Subjective ROS Limited/Unobtainable: Yes Allergies: Coded Allergies: No Known Allergies (Unverified , 06/17/18) Objective Vital Signs Last 24 Hour Vital Signs Date Time Temp Pulse Resp B/P (MAP) Pulse Ox O2 Delivery O2 Flow Rate FiO2 06/26/18 08:56 144/68 06/26/18 04:00 97.2 65 18 126/58 (80) 96 97.2 06/26/18 00:00 98.2 60 18 113/74 (87) 97 98.2 06/25/18 21:52 127/61 06/25/18 21:00 Nasal Cannula 2.0 06/25/18 20:00 98.2 60 18 127/61 (83) 96 98.2 06/25/18 19:07 Nasal Cannula 2.0 28 06/25/18 19:07 98 Nasal Cannula 2.0 28 06/25/18 16:00 97.9 58 20 118/56 (76) 97 97.9 06/25/18 12:00 97.8 55 18 130/65 (86) 99 97.8 Height (Feet): 5 Height (Inches): 10.00 Weight (Pounds): 148 General Appearance: no acute distress HEENT: mucous membranes moist Respiratory/Chest: other - coarse sounds Cardiovascular: normal rate Abdomen: soft, non tender, other - GT feeding, Extremities: other - left hend edema Neurologic/Psychiatric: alert Laboratory Tests Test 06/26/18 05:50 White Blood Count 8.0 K/UL (4.8-10.8) Red Blood Count 3.22 M/UL (4.70-6.10) L Hemoglobin 9.8 G/DL (14.2-18.0) L Hematocrit 30.5 % (42.0-52.0) L Mean Corpuscular Volume 95 FL (80-99) Mean Corpuscular Hemoglobin 30.4 PG (27.0-31.0) Mean Corpuscular Hemoglobin Concent 32.1 G/DL (32.0-36.0) Red Cell Distribution Width 12.3 % (11.6-14.8) Platelet Count 319 K/UL (150-450) Mean Platelet Volume 5.7 FL (6.5-10.1) L Neutrophils (%) (Auto) 77.2 % (45.0-75.0) H Lymphocytes (%) (Auto) 13.5 % (20.0-45.0) L Monocytes (%) (Auto) 4.0 % (1.0-10.0) Eosinophils (%) (Auto) 4.9 % (0.0-3.0) H Basophils (%) (Auto) 0.5 % (0.0-2.0) Sodium Level 140 MMOL/L (136-145) Potassium Level 4.5 MMOL/L (3.5-5.1) Chloride Level 104 MMOL/L (98-107) Carbon Dioxide Level 35 MMOL/L (21-32) H Anion Gap 1 mmol/L (5-15) L Blood Urea Nitrogen 22 mg/dL (7-18) H Creatinine 0.8 MG/DL (0.55-1.30) Estimat Glomerular Filtration Rate mL/min (>60) Glucose Level 135 MG/DL (74-106) H Calcium Level 9.5 MG/DL (8.5-10.1) Magnesium Level 2.0 MG/DL (1.8-2.4) Total Bilirubin 0.2 MG/DL (0.2-1.0) Aspartate Amino Transf (AST/SGOT) 56 U/L (15-37) H Alanine Aminotransferase (ALT/SGPT) 68 U/L (12-78) Alkaline Phosphatase 125 U/L (46-116) H Pro-B-Type Natriuretic Peptide 1831 pg/mL (0-125) H Total Protein 7.0 G/DL (6.4-8.2) Albumin 1.7 G/DL (3.4-5.0) L Globulin 5.3 g/dL Albumin/Globulin Ratio 0.3 (1.0-2.7) L Current Medications Medications (Trade) Dose Ordered Sig/Benjamin Route PRN Reason Start Time Stop Time Status Last Admin Dose Admin Acetaminophen (Tylenol) 650 mg Q4H PRN RECTAL Mild Pain/Temp > 100.5 06/21/18 07:15 07/19/18 07:14 06/21/18 06:56 Acetaminophen (Tylenol) 650 mg Q6H PRN GT For Pain 06/21/18 07:00 07/18/18 00:59 06/21/18 16:26 Aspirin (ASA) 81 mg DAILY GT 06/21/18 09:00 07/18/18 22:59 06/26/18 08:56 Atorvastatin Calcium (Lipitor) 20 mg BEDTIME GT 06/21/18 21:00 07/18/18 20:59 06/25/18 21:51 Dextrose (Dextrose 50%) 25 ml STAT PRN IV Hypoglycemia 06/22/18 01:00 07/18/18 00:59 Dextrose (Dextrose 50%) 50 ml STAT PRN IV Hypoglycemia 06/22/18 01:00 07/18/18 00:59 Donepezil HCl (Aricept) 5 mg QHS GT 06/21/18 21:00 07/18/18 20:59 06/25/18 21:52 Enalapril Maleate (Vasotec) 10 mg EVERY 12 HOURS GT 06/24/18 09:00 07/23/18 08:59 06/26/18 08:56 Famotidine (Pepcid) 20 mg DAILY GT 06/21/18 09:00 07/18/18 08:59 06/26/18 08:56 Gabapentin (Neurontin) 300 mg THREE TIMES A DAY GT 06/21/18 09:00 07/18/18 08:59 06/26/18 08:57 Heparin Sodium (Porcine) (Heparin 5000 units/ml) 5,000 units EVERY 12 HOURS SUBQ 06/21/18 09:00 07/18/18 08:59 06/26/18 09:02 Insulin Aspart (NovoLOG) EVERY 6 HOURS SUBQ 06/21/18 06:00 07/18/18 06:29 06/26/18 06:38 Iron Sucrose 100 mg/Sodium Chloride 60 ml @ 240 mls/hr BEDTIME IV 06/21/18 21:00 06/26/18 20:59 06/25/18 21:51 Levetiracetam (Keppra) 750 mg Q12HR GT 06/21/18 09:00 07/18/18 08:59 06/26/18 08:57 Levothyroxine Sodium (Synthroid) 125 mcg DAILY@0630 GT 06/21/18 06:30 07/18/18 06:29 06/26/18 06:30 Memantine (Namenda) 5 mg DAILY GT 06/21/18 09:00 07/18/18 08:59 06/26/18 08:56 Meropenem 1 gm/ Sodium Chloride 55 ml @ 110 mls/hr Q12HR IVPB 06/22/18 21:00 06/28/18 00:00 06/26/18 08:58 Vancomycin HCl (Vanco rx to dose) 1 ea DAILY PRN MISC Per rx protocol 06/21/18 09:00 07/17/18 16:59 Vancomycin HCl/ Dextrose 250 ml @ 166.667 mls/hr Q24H IVPB 06/25/18 09:00 06/30/18 08:59 06/25/18 10:34 Slade Odonnell MD Jun 26, 2018 09:28
--- NOTE | 2018-06-26 10:38 | Urology Progress Note ---
Assessment/Plan Assessment/Plan 1. Urinary retention with chronic suprapubic tube. 2. BPH history. 3. Probable neurogenic bladder. 4. UTI colonization. 5. Hematuria. 6. Proteinuria. SP tube last changed 06/21 monitor clinically hand irrigate sp tube PRN abx as ordered cysto later consider renal imaging, u/s or CT Subjective Allergies: Coded Allergies: No Known Allergies (Unverified , 06/17/18) Subjective all noted, sp tube draining Objective Last 24 Hour Vital Signs Date Time Temp Pulse Resp B/P (MAP) Pulse Ox O2 Delivery O2 Flow Rate FiO2 06/26/18 08:56 144/68 06/26/18 04:00 97.2 65 18 126/58 (80) 96 97.2 06/26/18 00:00 98.2 60 18 113/74 (87) 97 98.2 06/25/18 21:52 127/61 06/25/18 21:00 Nasal Cannula 2.0 06/25/18 20:00 98.2 60 18 127/61 (83) 96 98.2 06/25/18 19:07 Nasal Cannula 2.0 28 06/25/18 19:07 98 Nasal Cannula 2.0 28 06/25/18 16:00 97.9 58 20 118/56 (76) 97 97.9 06/25/18 12:00 97.8 55 18 130/65 (86) 99 97.8 Intake and Output 06/25/18 06/26/18 19:00 07:00 Intake Total 820 ml 775 ml Output Total 800 ml 750 ml Balance 20 ml 25 ml Free Water 100 ml 60 ml IV Total 115 ml Tube Feeding 720 ml 600 ml Output Urine Total 800 ml 750 ml # Bowel Movements 1 1 Microbiology Date/Time Source Procedure Growth Status 06/17/18 14:50 Blood Blood Culture - Final NO GROWTH AFTER 5 DAYS Complete 06/17/18 20:00 Sputum Gram Stain - Final Complete 06/17/18 20:00 Sputum Culture - Final Escherichia Coli - Esbl Staphylococcus Aureus - Mrsa Complete 06/17/18 13:41 Stool VRE Culture - Final Enterococcus Faecalis - Vre Complete 06/17/18 14:40 Urine,Clean Catch Urine Culture - Final Escherichia Coli - Esbl Complete 06/17/18 13:41 Rectum - Final NO CARBAPENEM-RESISTANT ENTEROBACTERI... Complete Current Medications Medications (Trade) Dose Ordered Sig/Benjamin Route PRN Reason Start Time Stop Time Status Last Admin Dose Admin Acetaminophen (Tylenol) 650 mg Q4H PRN RECTAL Mild Pain/Temp > 100.5 06/21/18 07:15 07/19/18 07:14 06/21/18 06:56 Acetaminophen (Tylenol) 650 mg Q6H PRN GT For Pain 06/21/18 07:00 07/18/18 00:59 06/21/18 16:26 Aspirin (ASA) 81 mg DAILY GT 06/21/18 09:00 07/18/18 22:59 06/26/18 08:56 Atorvastatin Calcium (Lipitor) 20 mg BEDTIME GT 06/21/18 21:00 07/18/18 20:59 06/25/18 21:51 Dextrose (Dextrose 50%) 25 ml STAT PRN IV Hypoglycemia 06/22/18 01:00 07/18/18 00:59 Dextrose (Dextrose 50%) 50 ml STAT PRN IV Hypoglycemia 06/22/18 01:00 07/18/18 00:59 Donepezil HCl (Aricept) 5 mg QHS GT 06/21/18 21:00 07/18/18 20:59 06/25/18 21:52 Enalapril Maleate (Vasotec) 10 mg EVERY 12 HOURS GT 06/24/18 09:00 07/23/18 08:59 06/26/18 08:56 Famotidine (Pepcid) 20 mg DAILY GT 06/21/18 09:00 07/18/18 08:59 06/26/18 08:56 Gabapentin (Neurontin) 300 mg THREE TIMES A DAY GT 06/21/18 09:00 07/18/18 08:59 06/26/18 08:57 Heparin Sodium (Porcine) (Heparin 5000 units/ml) 5,000 units EVERY 12 HOURS SUBQ 06/21/18 09:00 07/18/18 08:59 06/26/18 09:02 Insulin Aspart (NovoLOG) EVERY 6 HOURS SUBQ 06/21/18 06:00 07/18/18 06:29 06/26/18 06:38 Iron Sucrose 100 mg/Sodium Chloride 60 ml @ 240 mls/hr BEDTIME IV 06/21/18 21:00 06/26/18 20:59 06/25/18 21:51 Levetiracetam (Keppra) 750 mg Q12HR GT 06/21/18 09:00 07/18/18 08:59 06/26/18 08:57 Levothyroxine Sodium (Synthroid) 125 mcg DAILY@0630 GT 06/21/18 06:30 07/18/18 06:29 06/26/18 06:30 Memantine (Namenda) 5 mg DAILY GT 06/21/18 09:00 07/18/18 08:59 06/26/18 08:56 Meropenem 1 gm/ Sodium Chloride 55 ml @ 110 mls/hr Q12HR IVPB 06/22/18 21:00 06/28/18 00:00 06/26/18 08:58 Laboratory Tests 06/26/18 05:50: White Blood Count 8.0, Red Blood Count 3.22L, Hemoglobin 9.8L, Hematocrit 30.5L , Mean Corpuscular Volume 95, Mean Corpuscular Hemoglobin 30.4, Mean Corpuscular Hemoglobin Concent 32.1, Red Cell Distribution Width 12.3, Platelet Count 319, Mean Platelet Volume 5.7L, Neutrophils (%) (Auto) 77.2H, Lymphocytes (%) (Auto) 13.5L, Monocytes (%) (Auto) 4.0, Eosinophils (%) (Auto) 4.9H, Basophils (%) (Auto) 0.5, Sodium Level 140, Potassium Level 4.5, Chloride Level 104, Carbon Dioxide Level 35H, Anion Gap 1L, Blood Urea Nitrogen 22H, Creatinine 0.8, Estimat Glomerular Filtration Rate , Glucose Level 135H, Calcium Level 9.5, Magnesium Level 2.0, Total Bilirubin 0.2, Aspartate Amino Transf (AST/SGOT) 56H, Alanine Aminotransferase (ALT/SGPT) 68, Alkaline Phosphatase 125H, Pro-B-Type Natriuretic Peptide 1831H, Total Protein 7.0, Albumin 1.7L, Globulin 5.3, Albumin/Globulin Ratio 0.3L Height (Feet): 5 Height (Inches): 10.00 Weight (Pounds): 148 Objective exam stable ALEJANDRO COLLIER Jun 26, 2018 10:38
[2018-06-26 12:00] VITALS: BP 140/71
[2018-06-26 16:00] VITALS: BP 138/75
[2018-06-26 20:24] VITALS: BP 141/66
[2018-06-26] MEDS: Atorvastatin 20mg tab GT SCH (20:56)
[2018-06-26] MEDS: Donepezil 5mg Tab GT SCH (20:58)
[2018-06-27 00:23] VITALS: BP 133/68
--- NOTE | 2018-06-27 01:30 | Progress Note ---
DATE: 06/24/2018 CARDIOLOGY AND INTERNAL MEDICINE PROGRESS NOTE SUBJECTIVE: The patient without new distress. No signs of bleeding. Tolerating G-tube feedings, has a new suprapubic catheter placed, urine is draining clear. OBJECTIVE: VITAL SIGNS: Blood pressure 132/69, pulse 74, respiratory rate 19 and afebrile. LUNGS: Bilateral breath sounds. No wheezing. HEART: Regular rhythm and rate. Normal S1 and S2. ABDOMEN: Soft. G-tube and suprapubic catheter site without any signs of drainage. EXTREMITIES: No edema. Moderate cognitive impairment. IMPRESSION: 1. Corrected hypovolemia and dehydration. 2. Escherichia coli multidrug resistant urinary tract infection with sepsis and suprapubic catheter. 3. Polymicrobial pneumonia. 4. Hypertensive heart disease. 5. Cerebrovascular disease with dementia. 6. Dysphagia with G-tube. PLAN: 1. Antimicrobials. 2. Respiratory hygiene. 3. Bronchodilators as needed. 4. DVT prophylaxis. 5. Skin care. 6. Family members contacted for discharge disposition and they are looking for a new [facility]dc facility. Bryon Ramirez M.D. DR: GISELE JOB#: [id number] CC:
--- NOTE | 2018-06-27 02:30 | Progress Note ---
DATE: 06/25/2018 CARDIOLOGY AND INTERNAL MEDICINE PROGRESS NOTE SUBJECTIVE: auditing manager contacted me. Family members did not want the patient to return to prior facility. They are in contact with case assembler to find a new facility. The patient is in no acute distress, responding well to therapy, still on dual antimicrobials by IV route. G-tube feedings as tolerated and suprapubic catheter is draining urine without obstruction. OBJECTIVE: VITAL SIGNS: Blood pressure 150/59, pulse 50, respirations 20, afebrile, and oxygen saturation on 2 liters is 93% to 98%. LUNGS: Few rhonchi. HEART: Regular rhythm and rate. Normal S1 and S2. ABDOMEN: Soft. G-tube intact. Suprapubic catheter site without drainage. EXTREMITIES: No edema. Moderate cognitive impairment. SKIN: Exam as noted by nursing staff. LABORATORY AND DIAGNOSTIC DATA: No new laboratories. IMPRESSION: 1. Polymicrobial pneumonia, aspiration. 2. Dysphagia with G-tube. 3. E. coli UTI, sepsis. 4. 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 6. Cerebrovascular disease with dementia. 7. Hypertensive heart disease. 8. Sinus node disease with asymptomatic bradycardia. 9. Suprapubic catheter with complicated urinary infection as a result therapy in place. PLAN: 1. Repeat laboratory studies as requested. Complete antibiotics per Infectious Disease hospice care sales consultant recommendation. 2. Disposition pending, new [facility] to be located by family members. Bryon Ramirez M.D. DR: GISELE JOB#: [id number] CC:
--- NOTE | 2018-06-27 02:30 | Progress Note ---
DATE: 06/26/2018 CARDIOLOGY PROGRESS NOTE SUBJECTIVE: The patient remains afebrile. No respiratory distress. OBJECTIVE: VITAL SIGNS: Blood pressure 141/66, pulse 65, respirations 18, and oxygen saturation on 2 liters is 96% to 98%. LUNGS: Few rhonchi. No wheezing. HEART: Regular rhythm and rate. Normal S1, S2 with a fourth heart sound. ABDOMEN: Soft. EXTREMITIES: No edema. LABORATORY DATA: White count 8, hemoglobin 9.8. Sodium 140, potassium 4.5, bicarb 35, BUN 22, creatinine 0.8, magnesium 2, albumin 1.7. Pro natriuretic peptide has decreased to 1831. IMPRESSION: 1. Polymicrobial pneumonia. 2. Dysphagia with aspiration. 3. Urinary tract infection. 4. Acute on chronic diastolic congestive heart failure, clinically compensated. 5. Severe protein calorie malnutrition. 6. Anemia. PLAN: 1. Complete intravenous antimicrobials. 2. Continue respiratory hygiene and skin care. 3. Titrate anti-failure regimen. 4. Titrate insulin regimen. 5. Continue thyroid replacement. 6. Discharge planning once family locates a new nursing facility. Bryon Ramirez M.D. DR: SINDHU JOB#: [id number] CC:
[2018-06-27 04:39] VITALS: BP 140/70
[2018-06-27] MEDS: Levothyroxine 125mcg tab GT SCH (05:54)
[2018-06-27] MEDS: NovoLOG Insulin Flexpen SUBQ SCH ×4 (05:57→23:38)
[2018-06-27 08:00] VITALS: BP 152/76
--- NOTE | 2018-06-27 09:07 | Urology Progress Note ---
Assessment/Plan Assessment/Plan 1. Urinary retention with chronic suprapubic tube. 2. BPH history. 3. Probable neurogenic bladder. 4. UTI colonization. 5. Hematuria. 6. Proteinuria. SP tube last changed 06/21 monitor clinically hand irrigate sp tube PRN abx as ordered cysto later consider renal imaging, u/s or CT recheck urine cx at some point Subjective Allergies: Coded Allergies: No Known Allergies (Unverified , 06/17/18) Subjective all noted, sp tube draining Objective Last 24 Hour Vital Signs Date Time Temp Pulse Resp B/P (MAP) Pulse Ox O2 Delivery O2 Flow Rate FiO2 06/27/18 08:45 Nasal Cannula 2.0 28 06/27/18 08:45 96 Nasal Cannula 2.0 28 06/27/18 08:00 97.7 59 20 152/76 (101) 96 97.7 06/27/18 04:39 98.1 67 18 140/70 (93) 96 98.1 06/27/18 00:23 98.1 61 18 133/68 (89) 96 98.1 06/26/18 21:56 Nasal Cannula 2.0 06/26/18 20:58 141/66 06/26/18 20:24 98.2 65 18 141/66 (91) 96 98.2 06/26/18 16:00 97.6 66 18 138/75 (96) 98 97.6 06/26/18 12:00 97.8 63 18 140/71 (94) 98 97.8 Intake and Output 06/26/18 06/27/18 19:00 07:00 Intake Total 820 ml 655 ml Output Total 900 ml Balance 820 ml -245 ml Free Water 100 ml 60 ml IV Total 55 ml Tube Feeding 720 ml 540 ml Output Urine Total 900 ml # Voids 1 # Bowel Movements 1 Microbiology Date/Time Source Procedure Growth Status 06/17/18 14:50 Blood Blood Culture - Final NO GROWTH AFTER 5 DAYS Complete 06/17/18 20:00 Sputum Gram Stain - Final Complete 06/17/18 20:00 Sputum Culture - Final Escherichia Coli - Esbl Staphylococcus Aureus - Mrsa Complete 06/17/18 13:41 Stool VRE Culture - Final Enterococcus Faecalis - Vre Complete 06/17/18 14:40 Urine,Clean Catch Urine Culture - Final Escherichia Coli - Esbl Complete 06/17/18 13:41 Rectum - Final NO CARBAPENEM-RESISTANT ENTEROBACTERI... Complete Current Medications Medications (Trade) Dose Ordered Sig/Benjamin Route PRN Reason Start Time Stop Time Status Last Admin Dose Admin Acetaminophen (Tylenol) 650 mg Q4H PRN RECTAL Mild Pain/Temp > 100.5 06/21/18 07:15 07/19/18 07:14 06/21/18 06:56 Acetaminophen (Tylenol) 650 mg Q6H PRN GT For Pain 06/21/18 07:00 07/18/18 00:59 06/21/18 16:26 Aspirin (ASA) 81 mg DAILY GT 06/21/18 09:00 07/18/18 22:59 06/26/18 08:56 Atorvastatin Calcium (Lipitor) 20 mg BEDTIME GT 06/21/18 21:00 07/18/18 20:59 06/26/18 20:56 Dextrose (Dextrose 50%) 25 ml STAT PRN IV Hypoglycemia 06/22/18 01:00 07/18/18 00:59 Dextrose (Dextrose 50%) 50 ml STAT PRN IV Hypoglycemia 06/22/18 01:00 07/18/18 00:59 Donepezil HCl (Aricept) 5 mg QHS GT 06/21/18 21:00 07/18/18 20:59 06/26/18 20:58 Enalapril Maleate (Vasotec) 10 mg EVERY 12 HOURS GT 06/24/18 09:00 07/23/18 08:59 06/26/18 20:58 Famotidine (Pepcid) 20 mg DAILY GT 06/21/18 09:00 07/18/18 08:59 06/26/18 08:56 Gabapentin (Neurontin) 300 mg THREE TIMES A DAY GT 06/21/18 09:00 07/18/18 08:59 06/26/18 17:19 Heparin Sodium (Porcine) (Heparin 5000 units/ml) 5,000 units EVERY 12 HOURS SUBQ 06/21/18 09:00 07/18/18 08:59 06/26/18 20:58 Insulin Aspart (NovoLOG) EVERY 6 HOURS SUBQ 06/21/18 06:00 07/18/18 06:29 06/27/18 05:57 Levetiracetam (Keppra) 750 mg Q12HR GT 06/21/18 09:00 07/18/18 08:59 06/26/18 20:56 Levothyroxine Sodium (Synthroid) 125 mcg DAILY@0630 GT 06/21/18 06:30 07/18/18 06:29 06/27/18 05:54 Memantine (Namenda) 5 mg DAILY GT 06/21/18 09:00 07/18/18 08:59 06/26/18 08:56 Meropenem 1 gm/ Sodium Chloride 55 ml @ 110 mls/hr Q12HR IVPB 06/22/18 21:00 06/28/18 00:00 06/26/18 21:22 Height (Feet): 5 Height (Inches): 10.00 Weight (Pounds): 148 Objective exam stable ALEJANDRO COLLIER Jun 27, 2018 09:07
[2018-06-27] MEDS: levETIRAcetam 500mg/5ml Liquid GT SCH ×2 (09:11→21:39)
[2018-06-27] MEDS: Memantine 5 MG TAB GT SCH (09:14)
[2018-06-27] MEDS: Aspirin Baby 81mg GT SCH (09:14)
[2018-06-27] MEDS: Heparin 5000 units/ml inj SUBQ SCH ×2 (09:14→21:41)
[2018-06-27] MEDS: Meropenem 1 GM in NS 55 ML IVPB SCH ×2 (09:14→21:40)
[2018-06-27] MEDS: Gabapentin 300 MG/6 ML Soln GT SCH ×3 (10:13→18:02)
--- NOTE | 2018-06-27 10:41 | General Progress Note ---
Assessment/Plan Assessment/Plan Assessment - dysphagia - OBS - anemia - no w/u planned at this time due to dementia/poor health Recmmendations - GT care, TF - Elevate HOB - monitor CBC - await stool OB - family will call me if interested in GI w/u of anemia Subjective Allergies: Coded Allergies: No Known Allergies (Unverified , 06/17/18) Subjective above noted no events overnight awake tolerating TF Objective Last 24 Hour Vital Signs Date Time Temp Pulse Resp B/P (MAP) Pulse Ox O2 Delivery O2 Flow Rate FiO2 06/27/18 09:14 152/76 06/27/18 09:00 Nasal Cannula 2.0 06/27/18 08:45 Nasal Cannula 2.0 28 06/27/18 08:45 96 Nasal Cannula 2.0 28 06/27/18 08:00 97.7 59 20 152/76 (101) 96 97.7 06/27/18 04:39 98.1 67 18 140/70 (93) 96 98.1 06/27/18 00:23 98.1 61 18 133/68 (89) 96 98.1 06/26/18 21:56 Nasal Cannula 2.0 06/26/18 20:58 141/66 06/26/18 20:24 98.2 65 18 141/66 (91) 96 98.2 06/26/18 16:00 97.6 66 18 138/75 (96) 98 97.6 06/26/18 12:00 97.8 63 18 140/71 (94) 98 97.8 Intake and Output 06/26/18 06/27/18 19:00 07:00 Intake Total 820 ml 655 ml Output Total 900 ml Balance 820 ml -245 ml Free Water 100 ml 60 ml IV Total 55 ml Tube Feeding 720 ml 540 ml Output Urine Total 900 ml # Voids 1 # Bowel Movements 1 Height (Feet): 5 Height (Inches): 10.00 Weight (Pounds): 148 Objective Elderly WM NCAT supple CTA RRR Abd Soft , (+) GT, (+) SP tube no edema OBS Herminia Aguilar MD Jun 27, 2018 10:41
[2018-06-27 12:00] VITALS: BP 146/71
--- NOTE | 2018-06-27 13:01 | Infectious Diseases Prog Note ---
Assessment/Plan Assessment/Plan A; Sepsis improving E. Coli ESBL UTI E. 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 continue meropenem 1 more day Subjective ROS Limited/Unobtainable: Yes Allergies: Coded Allergies: No Known Allergies (Unverified , 06/17/18) Objective Vital Signs Last 24 Hour Vital Signs Date Time Temp Pulse Resp B/P (MAP) Pulse Ox O2 Delivery O2 Flow Rate FiO2 06/27/18 12:00 97.9 68 20 146/71 (96) 98 97.9 06/27/18 09:14 152/76 06/27/18 09:00 Nasal Cannula 2.0 06/27/18 08:45 Nasal Cannula 2.0 28 06/27/18 08:45 96 Nasal Cannula 2.0 28 06/27/18 08:00 97.7 59 20 152/76 (101) 96 97.7 06/27/18 04:39 98.1 67 18 140/70 (93) 96 98.1 06/27/18 00:23 98.1 61 18 133/68 (89) 96 98.1 06/26/18 21:56 Nasal Cannula 2.0 06/26/18 20:58 141/66 06/26/18 20:24 98.2 65 18 141/66 (91) 96 98.2 06/26/18 16:00 97.6 66 18 138/75 (96) 98 97.6 Height (Feet): 5 Height (Inches): 10.00 Weight (Pounds): 148 General Appearance: no acute distress HEENT: mucous membranes moist Respiratory/Chest: lungs clear Cardiovascular: normal rate Abdomen: soft, non tender, other - GT feeding Genitourinary: other - suoprapubic catheter Extremities: no edema Neurologic/Psychiatric: alert, responsive Current Medications Medications (Trade) Dose Ordered Sig/Benjamin Route PRN Reason Start Time Stop Time Status Last Admin Dose Admin Acetaminophen (Tylenol) 650 mg Q4H PRN RECTAL Mild Pain/Temp > 100.5 06/21/18 07:15 07/19/18 07:14 06/21/18 06:56 Acetaminophen (Tylenol) 650 mg Q6H PRN GT For Pain 06/21/18 07:00 07/18/18 00:59 06/21/18 16:26 Aspirin (ASA) 81 mg DAILY GT 06/21/18 09:00 07/18/18 22:59 06/27/18 09:14 Atorvastatin Calcium (Lipitor) 20 mg BEDTIME GT 06/21/18 21:00 07/18/18 20:59 06/26/18 20:56 Dextrose (Dextrose 50%) 25 ml STAT PRN IV Hypoglycemia 06/22/18 01:00 07/18/18 00:59 Dextrose (Dextrose 50%) 50 ml STAT PRN IV Hypoglycemia 06/22/18 01:00 07/18/18 00:59 Donepezil HCl (Aricept) 5 mg QHS GT 06/21/18 21:00 07/18/18 20:59 06/26/18 20:58 Enalapril Maleate (Vasotec) 10 mg EVERY 12 HOURS GT 06/24/18 09:00 07/23/18 08:59 06/27/18 09:14 Famotidine (Pepcid) 20 mg DAILY GT 06/21/18 09:00 07/18/18 08:59 06/27/18 09:14 Gabapentin (Neurontin) 300 mg THREE TIMES A DAY GT 06/21/18 09:00 07/18/18 08:59 06/27/18 10:13 Heparin Sodium (Porcine) (Heparin 5000 units/ml) 5,000 units EVERY 12 HOURS SUBQ 06/21/18 09:00 07/18/18 08:59 06/27/18 09:14 Insulin Aspart (NovoLOG) EVERY 6 HOURS SUBQ 06/21/18 06:00 07/18/18 06:29 06/27/18 05:57 Levetiracetam (Keppra) 750 mg Q12HR GT 06/21/18 09:00 07/18/18 08:59 06/27/18 09:11 Levothyroxine Sodium (Synthroid) 125 mcg DAILY@0630 GT 06/21/18 06:30 07/18/18 06:29 06/27/18 05:54 Memantine (Namenda) 5 mg DAILY GT 06/21/18 09:00 07/18/18 08:59 06/27/18 09:14 Meropenem 1 gm/ Sodium Chloride 55 ml @ 110 mls/hr Q12HR IVPB 06/22/18 21:00 8/7/18 00:00 06/27/18 09:14 Slade Odonnell MD Jun 27, 2018 13:01
[2018-06-27 16:00] VITALS: BP 125/58
[2018-06-27 20:00] VITALS: BP 127/60
[2018-06-27] MEDS: Atorvastatin 20mg tab GT SCH (21:39)
[2018-06-27] MEDS: Donepezil 5mg Tab GT SCH (21:41)
[2018-06-28] VITALS: BP 134/60
--- NOTE | 2018-06-28 03:45 | Progress Note ---
DATE: 06/27/2018 CARDIOLOGY PROGRESS NOTE SUBJECTIVE: No new distress. IV antibiotics ongoing. Urine clear in the suprapubic catheter. Tolerating feedings. No bleeding signs from G-tube. OBJECTIVE: VITAL SIGNS: Blood pressure 127/60, pulse 55, and respirations 19. LUNGS: Coarse breath sounds. HEART: Regular rhythm and rate. Normal S1 and S2. ABDOMEN: Soft. G-tube and suprapubic catheter intact. EXTREMITIES: No edema. IMPRESSION: Improved. PLAN: 1. Complete antibiotics. 2. Discontinue oxygen. 3. Discharge planning. Bryon Ramirez M.D. DR: GISELE JOB#: [id number] CC:
[2018-06-28 04:00] VITALS: BP 135/63
[2018-06-28] MEDS: Levothyroxine 125mcg tab GT SCH (05:54)
[2018-06-28] MEDS: NovoLOG Insulin Flexpen SUBQ SCH (05:54)
[2018-06-28 08:00] VITALS: BP 127/57
[2018-06-28] MEDS ORDERED: Meropenem 1 GM in NS 55 ML IVPB SCH (09:00)
[2018-06-28] MEDS: Aspirin Baby 81mg GT SCH (09:35)
[2018-06-28] MEDS: Memantine 5 MG TAB GT SCH (09:35)
[2018-06-28] MEDS: levETIRAcetam 500mg/5ml Liquid GT SCH (09:35)
[2018-06-28 09:36] VITALS: BP 127/57
[2018-06-28] MEDS: Gabapentin 300 MG/6 ML Soln GT SCH (09:36)
[2018-06-28] MEDS ORDERED: MERREM1 GM IV (10:01)
[2018-06-28] MEDS ORDERED: ENALAPRIL MALEA10 MG GT (10:01)
[2018-06-28] MEDS ORDERED: ASPIR 8181 MG ORAL (10:03)
[2018-06-28] MEDS ORDERED: NOVOLOG100 UNIT/4 SQ (10:05)
--- NOTE | 2018-06-28 10:08 | Urology Progress Note ---
Assessment/Plan Assessment/Plan 1. Urinary retention with chronic suprapubic tube. 2. BPH history. 3. Probable neurogenic bladder. 4. UTI colonization. 5. Hematuria. 6. Proteinuria. SP tube last changed 06/21 monitor clinically hand irrigate sp tube PRN abx as ordered cysto later consider renal imaging, u/s or CT recheck urine cx at some point rec change sp tube q 3-4 weeks can be done in SNF or office Subjective Allergies: Coded Allergies: No Known Allergies (Unverified , 06/17/18) Subjective all noted, sp tube draining Objective Last 24 Hour Vital Signs Date Time Temp Pulse Resp B/P (MAP) Pulse Ox O2 Delivery O2 Flow Rate FiO2 06/28/18 09:36 127/57 06/28/18 09:00 Nasal Cannula 2.0 06/28/18 08:00 98.2 67 20 127/57 (80) 95 98.2 06/28/18 04:00 96.9 50 18 135/63 (87) 98 96.9 06/28/18 00:00 97.3 54 19 134/60 (84) 99 97.3 06/27/18 21:40 127/60 06/27/18 21:00 Nasal Cannula 2.0 06/27/18 20:08 Nasal Cannula 2.0 28 06/27/18 20:07 97 Nasal Cannula 2.0 28 06/27/18 20:00 97.4 55 19 127/60 (82) 97 97.4 06/27/18 16:00 97.7 59 17 125/58 (80) 97 97.7 06/27/18 12:00 97.9 68 20 146/71 (96) 98 97.9 Intake and Output 06/27/18 06/28/18 19:00 07:00 Intake Total 870 ml 830 ml Output Total 1000 ml 800 ml Balance -130 ml 30 ml Free Water 150 ml 110 ml Tube Feeding 720 ml 720 ml Output Urine Total 1000 ml 800 ml # Bowel Movements 1 Microbiology Date/Time Source Procedure Growth Status 06/17/18 14:50 Blood Blood Culture - Final NO GROWTH AFTER 5 DAYS Complete 06/17/18 20:00 Sputum Gram Stain - Final Complete 06/17/18 20:00 Sputum Culture - Final Escherichia Coli - Esbl Staphylococcus Aureus - Mrsa Complete 06/17/18 13:41 Stool VRE Culture - Final Enterococcus Faecalis - Vre Complete 06/17/18 14:40 Urine,Clean Catch Urine Culture - Final Escherichia Coli - Esbl Complete 06/17/18 13:41 Rectum - Final NO CARBAPENEM-RESISTANT ENTEROBACTERI... Complete Current Medications Medications (Trade) Dose Ordered Sig/Benjamin Route PRN Reason Start Time Stop Time Status Last Admin Dose Admin Acetaminophen (Tylenol) 650 mg Q4H PRN RECTAL Mild Pain/Temp > 100.5 06/21/18 07:15 07/19/18 07:14 06/21/18 06:56 Acetaminophen (Tylenol) 650 mg Q6H PRN GT For Pain 06/21/18 07:00 07/18/18 00:59 06/21/18 16:26 Aspirin (ASA) 81 mg DAILY GT 06/21/18 09:00 07/18/18 22:59 06/28/18 09:35 Atorvastatin Calcium (Lipitor) 20 mg BEDTIME GT 06/21/18 21:00 07/18/18 20:59 06/27/18 21:39 Dextrose (Dextrose 50%) 25 ml STAT PRN IV Hypoglycemia 06/22/18 01:00 07/18/18 00:59 Dextrose (Dextrose 50%) 50 ml STAT PRN IV Hypoglycemia 06/22/18 01:00 07/18/18 00:59 Donepezil HCl (Aricept) 5 mg QHS GT 06/21/18 21:00 07/18/18 20:59 06/27/18 21:41 Enalapril Maleate (Vasotec) 10 mg EVERY 12 HOURS GT 06/24/18 09:00 07/23/18 08:59 06/28/18 09:36 Famotidine (Pepcid) 20 mg DAILY GT 06/21/18 09:00 07/18/18 08:59 06/28/18 09:35 Gabapentin (Neurontin) 300 mg THREE TIMES A DAY GT 06/21/18 09:00 07/18/18 08:59 06/28/18 09:36 Insulin Aspart (NovoLOG) EVERY 6 HOURS SUBQ 06/21/18 06:00 07/18/18 06:29 06/28/18 05:54 Levetiracetam (Keppra) 750 mg Q12HR GT 06/21/18 09:00 8/27/18 08:59 06/28/18 09:35 Levothyroxine Sodium (Synthroid) 125 mcg DAILY@0630 GT 06/21/18 06:30 07/18/18 06:29 06/28/18 05:54 Memantine (Namenda) 5 mg DAILY GT 06/21/18 09:00 07/18/18 08:59 06/28/18 09:35 Meropenem 1 gm/ Sodium Chloride 55 ml @ 110 mls/hr Q12HR IVPB 06/28/18 09:00 06/28/18 23:59 06/28/18 09:36 Height (Feet): 5 Height (Inches): 10.00 Weight (Pounds): 148 Objective exam stable ALEJANDRO COLLIER Jun 28, 2018 10:08
--- NOTE | 2018-06-28 20:07 | General Progress Note ---
Assessment/Plan Assessment/Plan Assessment - dysphagia - OBS - anemia - no w/u planned at this time due to dementia/poor health Recmmendations - GT care, TF - Ele[facility] HOB - monitor CBC - await stool OB - family will call me if interested in GI w/u of anemia - d/c planning Subjective Allergies: Coded Allergies: No Known Allergies (Unverified , 06/17/18) Subjective above noted no events overnight tolerating TF for discharge today Objective Last 24 Hour Vital Signs Date Time Temp Pulse Resp B/P (MAP) Pulse Ox O2 Delivery O2 Flow Rate FiO2 06/28/18 09:36 127/57 06/28/18 09:00 Nasal Cannula 2.0 06/28/18 08:00 98.2 67 20 127/57 (80) 95 98.2 06/28/18 04:00 96.9 50 18 135/63 (87) 98 96.9 06/28/18 00:00 97.3 54 19 134/60 (84) 99 97.3 06/27/18 21:40 127/60 06/27/18 21:00 Nasal Cannula 2.0 06/27/18 20:08 Nasal Cannula 2.0 28 06/27/18 20:07 97 Nasal Cannula 2.0 28 Intake and Output 06/27/18 06/28/18 19:00 07:00 Intake Total 870 ml 830 ml Output Total 1000 ml 800 ml Balance -130 ml 30 ml Free Water 150 ml 110 ml Tube Feeding 720 ml 720 ml Output Urine Total 1000 ml 800 ml # Bowel Movements 1 Height (Feet): 5 Height (Inches): 10.00 Weight (Pounds): 148 Objective Elderly WM NCAT supple CTA RRR Abd Soft , (+) GT, (+) SP tube no edema OBS Herminia Aguilar MD Jun 28, 2018 20:07
--- NOTE | 2018-06-29 15:31 | Discharge Summary ---
Discharge Summary Discharge Summary _ DATE OF ADMISSION: 06/17/2018 DATE OF DISCHARGE: 06/28/2018 REASON FOR ADMISSION: 82 years old male, resident of long term facility, with past medical history significant for coronary artery disease, status post SC ,seizure disorder, cerebrovascular disease with dementia, hypothyroidism ,diabetes mellitus type 2, chronic kidney disease, suprapubic catheter , dysphagia, G-tube , GERD, with DNR/DNI status, was sent to ER due to altered mental status. Patient was also noted to have cough Vital signs in emergency room revealed hypotension,tachycardia, hypoxemia. Patient required placement of 100% nonrebreathing mask. Chest x-ray revealed evidence of right lower lobe infiltrate Laboratory workup revealed leukocytosis with WBC 12.2, hemoglobin 12.6 , hematocrit 38.3. Lactic acid 3.0. BUN 57 ,creatinine 1.2. Troponin elevated 0.126 Chest x-ray revealed diffuse interstitial and airspace disease throughout t the right lung. EKG revealed sinus tachycardia with occasional premature ventricular complexes ,right bundle branch block ,left anterior fascicular block. Bifascicular block . Blood pressure responded to IV fluids. Blood [id number] from atfl1edm 7o0/46 up t6o 108/50. Patient admitted with diagnoses of sepsis, septic shock ,healthcare associated probably aspiration pneumonia, lactic acidosis, acute myocardial ischemia, possible NSTEMI, cerebrovascular disease with dementia, toxic and metabolic encephalopathy,severe protein calorie malnutrition, hypovolemia with dehydration, acute kidney injury, prerenal azotemia. CONSULTANTS: ID specialist Dr. Oshea GI specialist urologist Dr. White [facility] COURSE: Patient admitted. Septic workup initiated, Patient started on empiric antibiotics. IV fluids were continued, ID specialist closely followed. Supplemental oxygen provided and titrated to keep pulse oximetry above 92%, respiratory hygiene with bronchodilator provided. Patient suctioned as needed . Urine culture revealed Escherichia coli ESBL Sputum culture revealed Escherichia coli ESBL and MRSA Blood culture were negative Patient status post treatment with IV antibiotics while in the hospital. Leukocytosis resolved, patient afebrile Urology seen and evaluated patient due to recurrent complicated UTI due to suprapubic catheter. Suprapubic catheter was changed on June 21. Urologist recommended hand irrigation as needed and complete course of antibiotics. Urologist also recommended to change suprapubic catheter every 3-4 weeks which could be done at the long term facility or in the office. Consider renal imaging such as ultrasound or CT if family agreeable. Troponin trended down. Acute myocardia ischemia was likely due to sepsis, resolved Antiplatelet therapy with Aspirin resumed. Blood pressure , when stabilized, was managed with PIPER inhibitor, Statin was continued. DVT prophylaxis provided. Renal parameters and electrolytes were closely monitored. Electrolytes corrected as needed. Nephrotoxins were avoided. Prior to discharge BUN from 57 down to 22, creatinine 0.8 . Acute kidney injury was due to dehydration and resolved with intravenous hydration. IVF discontinued. pro BNP from initial 4151 down to 1831. Seizure precautions maintained. Keppra resumed Blood sugar was managed with sliding scale of insulin as needed, HgA1c at goal. Noted G-tube dislodgment. GI consult was requested. G-tube was replaced. Strict aspiration /reflux precautions were maintained. G-tube site care provided. Tube feeding started . Blind Lacer recommendations implemented in plan of care. GI specialist closely followed. Hemoglobin and hematocrit were closely monitored, with goal to keep hemoglobin above 7 . Hemoglobin and hematocrit remained stable. Anemia workup was consistent with anemia of chronic disease and iron deficiency. IV iron administered. GI prophylaxis provided. Supportive care provided. Bowel regimen instituted. Patient was stable for transfer back to long term [facility]. FINAL DIAGNOSES: Sepsis due to complicated recurrent urinary tract infection due to suprapubic catheter Septic shock -resolved Escherichia coli ESBL UTI , s/p treatment Escherichia coli, MRSA pneumonia, s/p treatment Healthcare acquired,likely aspiration pneumonia Acute myocardial ischemia -resolved Toxic and metabolic encephalopathy Cerebrovascular disease with dementia Acute kidney injury secondary to dehydration- resolved Severe protein calorie malnutrition Acute on chronic diastolic congestive heart failure Hypertensive heart disease Sinus node disease with asymptomatic bradycardia BPH Urinary retention Chronic suprapubic catheter Probably neurogenic bladder Dysphagia G-tube G-tube dislodgment , status post replacement Anemia of chronic disease Iron deficiency anemia Diabetes mellitus DISCHARGE MEDICATIONS: See Medication Reconciliation list. DISCHARGE INSTRUCTIONS: Patient was discharged to long term facility. I have been assigned to dictate discharge summary for this account. I was not involved in the patient's management. Sheryl Flaherty NP Jun 29, 2018 15:31
== END 2018-06-28 11:18 | DRG 871 ==
LOC: EDBD 14:31 → EMR 14:56 → 2E 15:15 → EDBEDREQSVC 16:00 → EDBEDREQ 17:19 → 4W 06-21 05:01 → 4E 06-23 21:07
DX: A41.9 Sepsis, unspecified organism (principal); I21.9 Acute myocardial infarction, unspecified; E43 Unspecified severe protein-calorie malnutrition; G93.41 Metabolic encephalopathy; J69.0 Pneumonitis due to inhalation of food and vomit; J15.5 Pneumonia due to Escherichia coli; J15.20 Pneumonia due to staphylococcus, unspecified; I50.33 Acute on chronic diastolic (congestive) heart failure; R65.21 Severe sepsis with septic shock; J15.212 Pneumonia due to Methicillin resistant Staphylococcus aureus; N17.9 Acute kidney failure, unspecified; N39.0 Urinary tract infection, site not specified; Z43.1 Encounter for attention to gastrostomy; I13.0 Hypertensive heart and chronic kidney disease with heart failure and stage 1 through stage 4 chronic kidney disease, or unspecified chronic kidney disease; Y95 Nosocomial condition; Z66 Do not resuscitate; G40.909 Epilepsy, unspecified, not intractable, without status epilepticus; F01.50 Vascular dementia, unspecified severity, without behavioral disturbance, psychotic disturbance, mood disturbance, and anxiety; E86.1 Hypovolemia; E86.0 Dehydration; K21.9 Gastro-esophageal reflux disease without esophagitis; I25.10 Atherosclerotic heart disease of native coronary artery without angina pectoris; G30.9 Alzheimer's disease, unspecified; F02.80 Dementia in other diseases classified elsewhere, unspecified severity, without behavioral disturbance, psychotic disturbance, mood disturbance, and anxiety; Z86.73 Personal history of transient ischemic attack (TIA), and cerebral infarction without residual deficits; E03.9 Hypothyroidism, unspecified; M48.02 Spinal stenosis, cervical region; N18.9 Chronic kidney disease, unspecified; Z79.4 Long term (current) use of insulin; B96.20 Unspecified Escherichia coli [E. coli] as the cause of diseases classified elsewhere; Z16.12 Extended spectrum beta lactamase (ESBL) resistance; L89.899 Pressure ulcer of other site, unspecified stage; Z43.5 Encounter for attention to cystostomy; E11.22 Type 2 diabetes mellitus with diabetic chronic kidney disease; R13.10 Dysphagia, unspecified; N31.9 Neuromuscular dysfunction of bladder, unspecified; N40.1 Benign prostatic hyperplasia with lower urinary tract symptoms; R33.8 Other retention of urine; Z16.24 Resistance to multiple antibiotics; Z22.322 Carrier or suspected carrier of Methicillin resistant Staphylococcus aureus; Z16.22 Resistance to vancomycin related antibiotics; E83.42 Hypomagnesemia; D63.8 Anemia in other chronic diseases classified elsewhere; Z22.1 Carrier of other intestinal infectious diseases; F09 Unspecified mental disorder due to known physiological condition; I51.3 Intracardiac thrombosis, not elsewhere classified; I49.8 Other specified cardiac arrhythmias
CPT/HCPCS: 36415; 71045; 80053; 80202; 81003; 82270; 82550; 82553; 82962; 83036; 83540; 83550; 83605; 83735; 83880; 84443; 84484; 85007; 85025; 87040; 87070; 87081; 87086; 87181; 87205; 93005; 94640; 94664; 94760; J1815; J7620

== ENCOUNTER 2018-08-21 15:02 | Inpatient (IN) | payer MEDICARE, MEDICAID ==
[2018-08-21] VITALS (9 sets, daily range): BP systolic 88–129; BP diastolic 50–100
[~2018-08-21] VITALS: Ht 165.1 cm; Wt 57.2 kg
[~2018-08-21 15:02] MED LIST changes: +ASPIR 8181 MG GT; +ATORVASTATIN CA20 MG GT; +CRANBERRY450 M4 GT; -Cefepime HCl 1 GM in NS 55 ML IV SCH; +DONEPEZIL HCL5 MG GT; +DOXAZOSIN MESYLA1 MG GT; +ENALAPRIL MALEA10 MG GT; +ENALAPRIL MALEAT5 MG GT; +FAMOTIDINE20 MG GT; +GABAPENTIN300 MG GT; +KEPPRA750 MG GT; +LEVOTHYROXINE125 MCG GT; +MERREM1 GM IV; +METFORMIN HCL500 M1 GT; +NAMENDA5 MG GT; +NOVOLOG100 UNIT/4 SQ; -Vancomycin 1 GM in NS 275 ML IV ONE
[2018-08-21] MEDS ORDERED: Piperacillin/Tazobactam 3.375 GM in D5W 55 ML IV STA (15:03)
[2018-08-21] MEDS ORDERED: NS 1000ml 2,200 ML IVLG ONE (15:15)
[2018-08-21] MEDS ORDERED: Vancomycin 1 GM in NS 275 ML IV ONE (15:15)
--- NOTE | 2018-08-21 15:22 | Emergency Room Report ---
History of Present Illness General Chief Complaint: Altered Level of Consciousness Source: EMS Present Illness HPI Patient was brought in for altered level of consciousness. Paramedics found that he was hypotensive. In addition to that his oxygen saturation was in the 80s. This improved up to 94% on 100% nonrebreather mask. The patient has an indwelling Martini. Apparently he is a DO NOT RESUSCITATE status. Paramedics were unable to start an IV. No further history is available on the patient. Admitted in May with these discharge dx: Sepsis due to complicated recurrent urinary tract infection due to suprapubic catheter Septic shock -resolved Escherichia coli ESBL UTI , s/p treatment Escherichia coli, MRSA pneumonia, s/p treatment Healthcare acquired,likely aspiration pneumonia Acute myocardial ischemia -resolved Toxic and metabolic encephalopathy Cerebrovascular disease with dementia Acute kidney injury secondary to dehydration- resolved Severe protein calorie malnutrition Acute on chronic diastolic congestive heart failure Hypertensive heart disease Sinus node disease with asymptomatic bradycardia BPH Urinary retention Chronic suprapubic catheter Probably neurogenic bladder Dysphagia G-tube G-tube dislodgment , status post replacement Anemia of chronic disease Iron deficiency anemia Diabetes mellitus Allergies: Coded Allergies: No Known Allergies (Unverified , 06/17/18) Patient History Limited by: medical condition Past Medical History: see triage record, old chart reviewed Past Surgical History: other - G tube Social History Narrative from SNF - DNR Reviewed Nursing Documentation: PMH: Agreed; PSxH: Agreed Nursing Documentation-PMH Hx Cardiac Problems: Yes Hx Hypertension: Yes Hx Diabetes: Yes Hx Cancer: No Hx Gastrointestinal Problems: Yes Hx Neurological Problems: Yes Hx Cerebrovascular Accident: Yes Hx Transient Ischemic Attacks: Yes Hx Dementia: Yes Hx Alzheimer's Disease: Yes Hx Seizures: Yes Hx Epilepsy: Yes Hx Dysphasia: Yes Review of Systems All Other Systems: limited Physical Exam Vital Signs Date Time Temp Pulse Resp B/P (MAP) Pulse Ox O2 Delivery O2 Flow Rate FiO2 08/21/18 14:52 99.8 112 36 88/53 86 Non-Rebreather 15.0 99.9 Sp02 EP Interpretation: reviewed, abnormal - interpreted as low by me General Appearance: other - unresponsive to pain, Chronically Ill Head: normocephalic Eyes: bilateral eye normal inspection ENT: moist mucus membranes Neck: supple Respiratory: respiratory distress, rales - R Cardiovascular #1: tachycardia Cardiovascular #2: 2+ radial (R) Gastrointestinal: normal inspection, non tender, no mass, non-distended, other - G tube, decreased bowel sounds Genitourinary: other - martini Musculoskeletal: back normal, other - atrophy Neurologic: other - stupor and unresponsive Psychiatric: other - unresponsive Reflexes: 1+ knee (R), 1+ knee (L) Skin: other - poor tugor Procedures Critical Care Time Critical Care Time Total Critical Care Time: 60 min bedside evaluation and treatment excludes procedures (EKG). Reason for critical care: respiratory distress, severe sepsis, repeated evaluations, NSTEMI Possible complications: hypotension, hypertension, AK, shock, arrhythmias, metabolic acidosis, end organ damage, respiratory failure. Interventions: fluid resuscitation, BIPAP, antibiotics, reassessments Course: Patient with hypotension and respiratory distress. BIPAP begun and fluid resuscitation. Improved with both. Broad spectrum antibiotics begun. Hypotensive again after fluid bolus. Bolus again and improved. + troponin. Aspirin given. Patient critical. Admitted SDU. Prognosis poor. Consultations: nursing staff, EMS, RT, admitting MD Performed by: Dr. Palafox Tolerated well condition = critical Medical Decision Making Diagnostic Impression: Primary Impression: Severe sepsis Additional Impressions: Right lower lobe pneumonia Qualified Codes: J18.1 - Lobar pneumonia, unspecified organism NSTEMI (non-ST elevated myocardial infarction) Elevated lactic acid level UTI (urinary tract infection) Qualified Codes: T83.511A - Infection and inflammatory reaction due to indwelling urethral catheter, initial encounter; N39.0 - Urinary tract infection , site not specified ER Course Patient presents with hypotension and hypoxia. He appears septic. Differential includes pneumonia, urinary tract infection amongst others. He will be evaluated with blood cultures lactates chest x-ray and other labs excluding acute myocardial infarction with EKG. He will be supported with BiPAP at this time any as he has a DO NOT RESUSCITATE status. Also fluid resuscitation is begun and antibiotics have been ordered. Chest x-ray with dense right lower lobe infiltrate and possible effusion with prior surgical clips. Leukocytosis. Pyuria. Renal insufficiency. Hyperglycemia. Elevated BNP. Improved on BIPAP. Less dyspneic. Troponin elevated. Aspirin ordered. Unable to give nitrates or beta blockers as hypotensive and septic. BP low again after 30 ml/kg bolus. Bolus 500. Improved BP with improved capillary fill. Mentation still decreased. O2 sat improved. Lactate elevated but continued aggressive hydration in the face of elevated BNP (sepsis re-evaluation). Patient admitted SDU in critical condition, but improved. to Dr. Ramirez. Laboratory Tests Test 08/21/18 15:15 08/21/18 17:07 White Blood Count 20.0 K/UL (4.8-10.8) H Red Blood Count 3.96 M/UL (4.70-6.10) L Hemoglobin 12.9 G/DL (14.2-18.0) L Hematocrit 37.4 % (42.0-52.0) L Mean Corpuscular Volume 94 FL (80-99) Mean Corpuscular Hemoglobin 32.5 PG (27.0-31.0) H Mean Corpuscular Hemoglobin Concent 34.5 G/DL (32.0-36.0) Red Cell Distribution Width 14.3 % (11.6-14.8) Platelet Count 330 K/UL (150-450) Mean Platelet Volume 6.5 FL (6.5-10.1) Neutrophils (%) (Auto) % (45.0-75.0) Lymphocytes (%) (Auto) % (20.0-45.0) Monocytes (%) (Auto) % (1.0-10.0) Eosinophils (%) (Auto) % (0.0-3.0) Basophils (%) (Auto) % (0.0-2.0) Differential Total Cells Counted 100 Neutrophils % (Manual) 65 % (45-75) Lymphocytes % (Manual) 5 % (20-45) L Monocytes % (Manual) 7 % (1-10) Eosinophils % (Manual) 0 % (0-3) Basophils % (Manual) 0 % (0-2) Metamyelocytes % 1 % (0-0) H Band Neutrophils 22 % (0-8) H Platelet Estimate Adequate Platelet Morphology Normal Polychromasia 1+ Anisocytosis 1+ Prothrombin Time 10.5 SEC (9.30-11.50) Prothrombin Time INR 1.0 (0.9-1.1) PTT 25 SEC (23-33) Urine Color Yellow Urine Appearance Cloudy Urine pH 9 (4.5-8.0) Urine Specific Lawrence 1.015 (1.005-1.035) Urine Protein 3+ (NEGATIVE) H Urine Glucose (UA) Negative (NEGATIVE) Urine Ketones 1+ (NEGATIVE) H Urine Blood 3+ (NEGATIVE) H Urine Nitrite Negative (NEGATIVE) Urine Bilirubin 1+ (NEGATIVE) H Urine Ictotest Negative (NEGATIVE) Urine Urobilinogen 1 MG/DL (0.0-1.0) H Urine Leukocyte Esterase 3+ (NEGATIVE) H Urine RBC 10-15 /HPF (0 - 0) H Urine WBC 5-10 /HPF (0 - 0) H Urine Squamous Epithelial Cells None /LPF (NONE/OCC) Urine Triple Phosphate Crystals Moderate /LPF (NONE) H Urine Bacteria Many /HPF (NONE) H Sodium Level 139 MMOL/L (136-145) Potassium Level 4.9 MMOL/L (3.5-5.1) Chloride Level 104 MMOL/L (98-107) Carbon Dioxide Level 27 MMOL/L (21-32) Anion Gap 9 mmol/L (5-15) Blood Urea Nitrogen 57 mg/dL (7-18) H Creatinine 1.2 MG/DL (0.55-1.30) Estimate Glomerular Filtration Rate mL/min (>60) Glucose Level 187 MG/DL (74-106) H Lactic Acid Level 2.10 mmol/L (0.4-2.0) H 3.20 mmol/L (0.66-2.22) H Calcium Level 9.5 MG/DL (8.5-10.1) Magnesium Level 1.8 MG/DL (1.8-2.4) Total Bilirubin 0.4 MG/DL (0.2-1.0) Aspartate Amino Transferase (AST) 20 U/L (15-37) Alanine Aminotransferase (ALT) 21 U/L (12-78) Alkaline Phosphatase 102 U/L (46-116) Total Creatine Kinase 70 U/L (26-308) Creatine Kinase MB 1.5 NG/ML (0.0-3.6) Creatine Kinase MB Relative Index 2.1 Troponin I 0.060 ng/mL (0.000-0.056) Pro-B-Type Natriuretic Peptide 4091 pg/mL (0-125) H Total Protein 8.1 G/DL (6.4-8.2) Albumin 2.1 G/DL (3.4-5.0) L Globulin 6.0 g/dL Albumin/Globulin Ratio 0.3 (1.0-2.7) L EKG Diagnostic Results Rate: tachycardiac ST Segments: no acute changes ASA given to the pt in ED: Yes Rhythm Strip Diag. Results EP Interpretation: yes Rhythm: no PVC's, no ectopy, other - Sinus tachycardia Chest X-Ray Diagnostic Results Chest X-Ray Diagnostic Results : Chest X-Ray Ordered: Yes # of Views/Limited/Complete: 1 View Indication: Shortness of Breath EP Interpretation: Yes Interpretation: no pneumothorax, other - Right lower lobe infiltrate with prior surgical clips and possible effusion. Last Vital Signs Date Time Temp Pulse Resp B/P (MAP) Pulse Ox O2 Delivery O2 Flow Rate FiO2 08/22/18 00:00 100 08/21/18 22:34 89 14 100 Facial 08/21/18 20:00 98.1 120/55 (76) 98.1 08/21/18 18:50 15.0 Status: improved Disposition: ADMITTED INPATIENT Condition: Critical Bryon Palafox M.D. Aug 21, 2018 15:22
[2018-08-21 15:33] LABS: APPEARANCE,URINE CLOUDY; BILIRUBIN, URINE 1+ (NEGATIVE); GLUCOSE, URINE (UA) NEGATIVE (NEGATIVE); KETONES,URINE 1+ (NEGATIVE); LEUKOCYTE ESTERASE ,URINE 3+ (NEGATIVE); NITRITE,URINE NEGATIVE (NEGATIVE); PH,URINE 9 (4.5-8.0); PROTEIN,URINE 3+ (NEGATIVE); UROBILINOGEN,URINE 1 MG/DL (0.0-1.0)
[2018-08-21 15:34] LABS: COLOR,URINE YELLOW
[2018-08-21 15:35] LABS: HEMATOCRIT 37.4 % (42.0-52.0); HEMOGLOBIN 12.9 G/DL (14.2-18.0); MEAN CORPUSCULAR VOLUME 94 FL (80-99); PLATELET COUNT 330 K/UL (150-450); RED BLOOD COUNT 3.96 M/UL (4.70-6.10); RED CELL DISTRIBUTION WIDTH 14.3 % (11.6-14.8)
[2018-08-21 15:46] LABS: ANION GAP 9 mmol/L (5-15); BLOOD UREA NITROGEN 57 mg/dL (7-18); CALCIUM 9.5 MG/DL (8.5-10.1); CARBON DIOXIDE 27 MMOL/L (21-32); CHLORIDE 104 MMOL/L (98-107); CREATININE 1.2 MG/DL (0.55-1.30); POTASSIUM 4.9 MMOL/L (3.5-5.1); SODIUM 139 MMOL/L (136-145)
[2018-08-21] MEDS ORDERED: MULTIVITAMINS1 EAC8 GT (15:57)
[2018-08-21] MEDS ORDERED: ZINC SULFATE220 M1 GT (15:57)
[2018-08-21] MEDS ORDERED: MILK OF MA2400 MG/10 GT (15:57)
[2018-08-21] MEDS ORDERED: COLACE100 MG GT (15:57)
[2018-08-21] MEDS ORDERED: PRO-STAT LIQUID30 ML GT (15:57)
[2018-08-21] MEDS ORDERED: TYLENOL EXTRA500 MG ORAL (15:57)
[2018-08-21] MEDS ORDERED: VITAMIN C500 M1 GT (15:57)
[2018-08-21] MEDS ORDERED: DULCOLAX10 MG RC (15:57)
[2018-08-21] MEDS ORDERED: FLEET ENEMA133 ML RECTAL (15:57)
[2018-08-21] MEDS ORDERED: UTI-STAT L3875 MG/31 GT (15:57)
[2018-08-21 16:01] LABS: ALANINE AMINOTRANSFERASE 21 U/L (12-78); ALBUMIN 2.1 G/DL (3.4-5.0); ALBUMIN/GLOBULIN RATIO 0.3 (1.0-2.7); ALKALINE PHOSPHATASE 102 U/L (46-116); ASPARTATE AMINO TRANSFERASE 20 U/L (15-37); BILIRUBIN,TOTAL 0.4 MG/DL (0.2-1.0); CKMB 1.5 NG/ML (0.0-3.6); CREATINE KINASE 70 U/L (26-308)
[2018-08-21] MEDS ORDERED: ACETAMINOPHEN325 M1 ORAL (17:42)
[2018-08-21] MEDS ORDERED: Sodium Chloride 500ML 500 ML IV ONE (18:15)
[2018-08-21] MEDS ORDERED: Vancomycin 1gm inj IVPB ONE (18:55)
[2018-08-21] MEDS: Piperacillin/Tazobactam 3.375 GM in D5W 110 ML IVPB SCH (21:59)
[2018-08-21] MEDS: Heparin 5000 units/ml inj SUBQ SCH (22:00)
[2018-08-21] MEDS: NovoLOG Insulin Flexpen SUBQ SCH (22:01)
[2018-08-22] VITALS: BP 116/65
--- NOTE | 2018-08-22 02:00 | Consultation ---
DATE OF CONSULTATION: 08/21/2018 CARDIOLOGY CONSULTATION CONSULTING PHYSICIAN: Bryon Ramirez M.D. REQUESTING PHYSICIAN: Michael Zuniga M.D. REASON FOR CONSULTATION: Hypotension and elevated troponin level. HISTORY OF PRESENT ILLNESS: This 83-year-old male who resides at a correction facility and has had baseline dementia, was found, altered, withdrawn, and lethargic. Paramedics were summoned and hypotension was noted. The patient was hypoxic in the 80s and was brought to the emergency room on a non-rebreather mask with saturations were adequate at that time. The patient has an indwelling suprapubic catheter chronically. He was recently hospitalized with sepsis. In the emergency room, the patient was volume resuscitated, placed on a non-rebreather mask, pancultured, and started on broad-spectrum antibiotics. PAST MEDICAL HISTORY: Dysphagia with G-tube, cerebrovascular disease with dementia, type 2 diabetes mellitus, hypertensive heart disease, coronary atherosclerosis, and seizure disorder. ALLERGIES: None. MEDICATIONS: Prior to admission, reviewed and reconciled. FAMILY HISTORY: Not known. SOCIAL HISTORY: Nonsmoker. No history of alcohol abuse. Advanced directives present for DNR. REVIEW OF SYSTEMS: Not obtainable from the patient. Records are reviewed from prior hospital stay in 05/2018 as well as his current correction home chart and pertinent data has been outlined above, 20 minutes time spent. PHYSICAL EXAMINATION: VITAL SIGNS: Temperature 99.9, blood pressure 88/53, heart rate 112, and respiratory rate 36. The patient is on a non-rebreather mask. GENERAL: Poorly responsive. LUNGS: Coarse breath sounds. Scattered rhonchi. HEART: Regular rhythm. Rapid rate. Normal S1, S2. ABDOMEN: Soft. GENITOURINARY: Suprapubic catheter in place. G-tube in place. EXTREMITIES: No edema. SKIN: Skin turgor is poor. There is no mottling or ischemic changes. LABORATORY AND DIAGNOSTIC DATA: White count 20, hemoglobin 12.9. Chest x-ray reveals right lower lobe pneumonia. White count 20, hemoglobin 12.9. Lactic acid increased from 2.1 to 3.2, glucose 187. Troponin 0.06. Pro-natriuretic peptide over 4000. Albumin 2.1. Sodium 139, potassium 4.9, bicarbonate 27, BUN 57, and creatinine 1.2. EKG revealed sinus tachycardia with nonspecific ST-T change. IMPRESSION: 1. Sepsis with shock. 2. Hypovolemia and dehydration. 3. Healthcare-acquired pneumonia, likely aspiration. 4. Dysphagia with G-tube. 5. Cerebrovascular disease with dementia. 6. Acute myocardial infarction. 7. Suprapubic catheter. 8. Complicated urinary tract infection. 9. Acute on chronic diastolic congestive heart failure. 10. Severe protein-calorie malnutrition. 11. Lactic acidosis. 12. Type 2 diabetes mellitus. 13. Critical condition with guarded prognosis. PLAN: 1. Panculture. 2. Respiratory hygiene. 3. Broad-spectrum antibiotics. 4. Volume resuscitation. 5. BiPAP support as needed. 6. Serial troponin levels. 7. Anti-platelet therapy with aspirin. 8. DVT and stress ulcer prophylaxes. 9. Nutrition by feeding tube. 10. Possible replacement of suprapubic catheter. Bryon Ramirez M.D. DR: SARITA JOB#: [id number] CC:
[2018-08-22] MEDS: Vancomycin 750mg/NS 250ml IVPB SCH ×2 (02:42→16:07)
[2018-08-22 04:00] VITALS: BP 126/70
[2018-08-22] MEDS: NovoLOG Insulin Flexpen SUBQ SCH ×8 (06:00→21:59)
[2018-08-22] MEDS: Piperacillin/Tazobactam 3.375 GM in D5W 110 ML IVPB SCH ×3 (06:08→21:53)
[2018-08-22 07:33] LABS: HEMATOCRIT 29.7 % (42.0-52.0); HEMOGLOBIN 9.7 G/DL (14.2-18.0); MEAN CORPUSCULAR VOLUME 94 FL (80-99); PLATELET COUNT 217 K/UL (150-450); RED BLOOD COUNT 3.17 M/UL (4.70-6.10); RED CELL DISTRIBUTION WIDTH 14.6 % (11.6-14.8); WHITE BLOOD COUNT 15.1 K/UL (4.8-10.8)
[2018-08-22 08:00] VITALS: BP 132/68
[2018-08-22 08:05] LABS: ALANINE AMINOTRANSFERASE 18 U/L (12-78); ALBUMIN 1.7 G/DL (3.4-5.0); ALBUMIN/GLOBULIN RATIO 0.3 (1.0-2.7); ALKALINE PHOSPHATASE 74 U/L (46-116); ANION GAP 8 mmol/L (5-15); ASPARTATE AMINO TRANSFERASE 18 U/L (15-37); BILIRUBIN,TOTAL 0.4 MG/DL (0.2-1.0); BLOOD UREA NITROGEN 49 mg/dL (7-18); CARBON DIOXIDE 25 MMOL/L (21-32); CHLORIDE 111 MMOL/L (98-107); POTASSIUM 4.2 MMOL/L (3.5-5.1); SODIUM 144 MMOL/L (136-145)
[2018-08-22] MEDS: Heparin 5000 units/ml inj SUBQ SCH ×2 (08:55→21:56)
--- NOTE | 2018-08-22 08:57 | Diagnostic Imaging Report ---
Indication: Chest pain Technique: One view of the chest Comparison: 06/17/2015 Findings: Less optimal inspiration. There is denser consolidation at the right lung base. Inferior right upper lobe opacities appear similar to the prior exam. The right costophrenic angle is obscured, small effusion possible. There is slight blunting of left costophrenic sulcus, appears similar to the prior exam and may be chronic. The left lung and pleural space are otherwise clear. The heart size is normal. The aorta is tortuous ectatic and calcified. Impression: Apparent dense consolidation at the right lung base, likely pneumonia. However, given less optimal inspiration, presence of parenchymal opacities on the previous study, it is also possible that right lung base findings represent crowding of previous chronic parenchymal opacities. This is considered less likely, however. Less dense parenchymal opacities of the right upper lobe, appearing similar to the prior exam. This could represent recurrent acute disease versus chronic fibrotic change. Possible small right pleural effusion Evidence of prior right chest surgery. Slight blunting of left costophrenic sulcus, stable and likely on the basis of chronic scarring although could represent a small amount of pleural fluid
[2018-08-22 12:00] VITALS: BP 139/63
[2018-08-22 16:00] VITALS: BP 120/54
[2018-08-22] MEDS ORDERED: NS 275ml ONE (17:04)
[2018-08-22] MEDS ORDERED: Tubing IV Secondary IV ONE (17:04)
[2018-08-22 20:00] VITALS: BP 110/53
--- NOTE | 2018-08-22 21:14 | Progress Note ---
DATE: 08/22/2018 CARDIOLOGY PROGRESS NOTE SUBJECTIVE: The patient is comfortable. No apparent respiratory distress. He has defervesced. Less respiratory discomfort noted. OBJECTIVE: GENERAL: Noncommunicative. VITAL SIGNS: Blood pressure 126/70, pulse 78, respirations 21, and afebrile. Monitored rhythm sinus. LUNGS: Diminished breath sounds. CARDIAC: Regular rhythm and rate. Normal S1, S2 with a fourth heart sound. ABDOMEN: Soft. G-tube site intact. GENITOURINARY: Suprapubic catheter site clean and dry. EXTREMITIES: Without edema. LABORATORY AND DIAGNOSTIC DATA: Urine culture has gram-negative bacilli. Lactic acid levels have decreased from a peak of 3.2 to 1.9. BUN 49 and creatinine 1.0. Troponin 0.037 and albumin 1.7. IMPRESSION: 1. Sepsis with shock, recovering. 2. Complicated urinary tract infection with suprapubic catheter. 3. Acute myocardial ischemia, resolved. 4. Lactic acidosis, resolved. 5. Acute on chronic diastolic congestive heart failure had compensated clinically. 6. Acute on chronic kidney injury, improving. 7. Hypovolemia and dehydration. 8. Dysphagia with G-tube. 9. Advanced dementia. 10. Severe protein-calorie malnutrition. PLAN: 1. Continue hydration. 2. No need for pressors. 3. Empiric antimicrobials. 4. Nutrition by feeding tube. 5. Suprapubic catheter may need replacement. Urology is called. 6. Continue to hold cardiac medications at this time, but we will resume in a stepwise fashion as the patient's blood pressure parameters continue to stabilize. 7. We will also maintain anti-platelet therapy with aspirin. Bryon Ramirez M.D. DR: DARRON JOB#: [id number] CC:
[2018-08-23] VITALS: BP 120/58
[2018-08-23 02:13] LABS: HEMATOCRIT 28.2 % (42.0-52.0); MEAN CORPUSCULAR VOLUME 94 FL (80-99); PLATELET COUNT 200 K/UL (150-450); RED CELL DISTRIBUTION WIDTH 14.9 % (11.6-14.8); WHITE BLOOD COUNT 11.6 K/UL (4.8-10.8)
[2018-08-23 02:40] LABS: ALANINE AMINOTRANSFERASE 17 U/L (12-78); ALBUMIN 1.3 G/DL (3.4-5.0); ALBUMIN/GLOBULIN RATIO 0.3 (1.0-2.7); ALKALINE PHOSPHATASE 88 U/L (46-116); ANION GAP 7 mmol/L (5-15); ASPARTATE AMINO TRANSFERASE 19 U/L (15-37); BILIRUBIN,TOTAL 0.2 MG/DL (0.2-1.0); BLOOD UREA NITROGEN 31 mg/dL (7-18); CARBON DIOXIDE 25 MMOL/L (21-32); CHLORIDE 112 MMOL/L (98-107); CREATININE 0.8 MG/DL (0.55-1.30); POTASSIUM 3.8 MMOL/L (3.5-5.1); SODIUM 144 MMOL/L (136-145)
[2018-08-23] MEDS: Vancomycin 750mg/NS 250ml IVPB SCH ×2 (02:43→15:11)
[2018-08-23 04:00] VITALS: BP 120/55
--- NOTE | 2018-08-23 04:15 | Consultation ---
DATE OF CONSULTATION: 08/22/2018 REFERRING PHYSICIAN: Bryon Ramirez M.D. CONSULTING PHYSICIAN: Home White M.D. REASON FOR CONSULTATION: For evaluation of suprapubic tube. HISTORY OF PRESENT ILLNESS: This is an 83-year-old male, he is known to me from recent evaluation. He has a history of BPH, dementia, and history of chronic suprapubic tube. He was in the hospital a couple of months ago, at which time I changed his suprapubic tube. He is currently being readmitted to the hospital because of hypotension with elevated troponin. Followup urology evaluation requested. The suprapubic tube is indwelling, it is draining. The nursing staff reported some leakage. Most of the history was obtained from the chart. PAST MEDICAL HISTORY: Significant for above, also history of seizure disorder, cerebrovascular accident, dementia, hypothyroidism, diabetes, gastroesophageal reflux disease, and coronary artery disease. PAST SURGICAL HISTORY: He has suprapubic G-tube. Other surgeries are unknown. CURRENT MEDICATIONS: Here in the hospital, the patient is on aspirin, magnesium, vancomycin, insulin, Zosyn, and heparin. ALLERGIES: No known drug allergies. SOCIAL HISTORY: Resident of [facility]. FAMILY HISTORY: Unable to obtain. REVIEW OF SYSTEMS: Unable to obtain. PHYSICAL EXAMINATION: GENERAL: An elderly male. VITAL SIGNS: Temperature is 98.6, blood pressure 120/54, pulse 80, and respirations 20. HEENT: Normocephalic. NECK: Supple. ABDOMEN: Soft. SP in place, 22-Lao. Urine is nikita. LABORATORY DATA: UA showed 3+ protein, 10 to 15 rbc's, 5 to 10 wbc's, and many bacteria. His urine culture shows gram-negative rods so far. White count is 15.1 and hemoglobin 9.7. BUN is 49 and creatinine 1.0. DIAGNOSTIC IMAGING STUDIES: The patient had a chest x-ray, which showed some consolidation of the lung base, possible pneumonia. There is no renal imaging here on record. IMPRESSION: 1. Urinary retention with chronic suprapubic tube. 2. Benign prostatic hypertrophy history. 3. Neurogenic bladder. 4. Urinary tract infection and colonization. 5. Hematuria. 6. Proteinuria. PLAN/DISCUSSION: The patient is to continue with the suprapubic tube indwelling. It will be irrigated as needed. He is currently on antibiotics, which will be continued. Again, he does have a positive urine culture, but most likely chronic colonization. I will plan on changing the suprapubic tube sometime during this admission. We will consider renal imaging study and cystoscopy in the future. Thank you, Dr. Ramirez, for asking me to participate in this consultation. Home White M.D. DR: MARIO JOB#: [id number] CC:
[2018-08-23] MEDS: NovoLOG Insulin Flexpen SUBQ SCH ×6 (05:59→23:20)
[2018-08-23] MEDS: Piperacillin/Tazobactam 3.375 GM in D5W 110 ML IVPB SCH ×3 (05:59→21:19)
--- NOTE | 2018-08-23 06:08 | General Progress Note ---
Assessment/Plan Problem List: (1) UTI (urinary tract infection) ICD Codes: N39.0 - Urinary tract infection, site not specified SNOMED: 27847720 Qualifiers: Qualified Codes: T83.511A - Infection and inflammatory reaction due to indwelling urethral catheter, initial encounter; N39.0 - Urinary tract infection , site not specified (2) Severe sepsis ICD Codes: A41.9 - Sepsis, unspecified organism; R65.20 - Severe sepsis without septic shock SNOMED: 54627773 (3) NSTEMI (non-ST elevated myocardial infarction) ICD Codes: I21.4 - Non-ST elevation (NSTEMI) myocardial infarction SNOMED: 248250306 (4) Right lower lobe pneumonia ICD Codes: J18.1 - Lobar pneumonia, unspecified organism SNOMED: 565357574 Qualifiers: Qualified Codes: J18.1 - Lobar pneumonia, unspecified organism (5) Elevated lactic acid level ICD Codes: R79.89 - Other specified abnormal findings of blood chemistry SNOMED: 6663807 Status: stable, progressing Assessment/Plan iv abx follow up cultures bipap check cxr a check abg feeds Subjective ROS Limited/Unobtainable: Yes Constitutional: Reports: malaise, weakness HEENT: Reports: no symptoms Cardiovascular: Reports: no symptoms Respiratory: Reports: shortness of breath Gastrointestinal/Abdominal: Reports: difficulty swallowing Genitourinary: Reports: no symptoms Neurologic/Psychiatric: Reports: pre-existing deficit Endocrine: Reports: no symptoms Hematologic/Lymphatic: Reports: no symptoms Allergies: Coded Allergies: No Known Allergies (Unverified , 06/17/18) All Systems: reviewed and negative except above Subjective remains on continuous bipap. confused. tolerating feeds. no fever or chills. Objective Last 24 Hour Vital Signs Date Time Temp Pulse Resp B/P (MAP) Pulse Ox O2 Delivery O2 Flow Rate FiO2 08/23/18 05:24 82 16 99 Facial 40 08/23/18 04:05 65 08/23/18 04:00 98.2 62 16 120/55 (76) 100 98.2 08/23/18 04:00 Bi-pap 08/23/18 04:00 40 08/23/18 03:27 85 16 99 Facial 40 08/23/18 01:22 77 25 97 Facial 40 08/23/18 00:00 65 08/23/18 00:00 97.7 74 18 120/58 (78) 99 97.7 08/23/18 00:00 Bi-pap 08/22/18 22:34 78 17 99 Facial 40 08/22/18 21:01 89 24 99 Facial 40 08/22/18 20:00 98.6 80 20 110/53 (72) 100 98.6 08/22/18 20:00 Bi-pap 08/22/18 20:00 40 08/22/18 19:53 65 08/22/18 18:48 71 17 98 Facial 40 08/22/18 16:34 79 22 99 Facial 40 08/22/18 16:00 98.6 80 20 120/54 (76) 100 98.6 08/22/18 16:00 Bi-pap 08/22/18 16:00 40 08/22/18 16:00 79 08/22/18 15:31 86 21 98 Facial 40 08/22/18 12:54 65 19 99 Facial 40 08/22/18 12:00 98.8 91 20 139/63 (88) 100 98.8 08/22/18 12:00 Bi-pap 08/22/18 12:00 85 08/22/18 12:00 40 08/22/18 11:05 49 25 98 Facial 40 08/22/18 09:51 75 18 97 Facial 40 08/22/18 08:00 Bi-pap 08/22/18 08:00 96.0 94 22 132/68 (89) 98 96.0 08/22/18 08:00 40 08/22/18 08:00 85 08/22/18 07:43 82 24 98 Facial 40 Intake and Output 08/22/18 08/23/18 19:00 07:00 Intake Total 540 ml 385 ml Output Total 800 ml Balance -260 ml 385 ml Intake Free Water 120 ml 70 ml Tube Feeding 420 ml 315 ml Output Urine Total 800 ml # Bowel Movements 1 Laboratory Tests 08/22/18 07:16: White Blood Count 15.1H, Red Blood Count 3.17L, Hemoglobin 9.7L, Hematocrit 29.7L, Mean Corpuscular Volume 94, Mean Corpuscular Hemoglobin 30.7, Mean Corpuscular Hemoglobin Concent 32.7, Red Cell Distribution Width 14.6, Platelet Count 217, Mean Platelet Volume 6.3L, Neutrophils (%) (Auto) , Lymphocytes (%) ( Auto) , Monocytes (%) (Auto) , Eosinophils (%) (Auto) , Basophils (%) (Auto) , Differential Total Cells Counted 100, Neutrophils % (Manual) 80H, Lymphocytes % (Manual) 9L, Monocytes % (Manual) 4, Eosinophils % (Manual) 1, Basophils % ( Manual) 0, Band Neutrophils 6, Platelet Estimate Adequate, Platelet Morphology Normal, Hypochromasia , Anisocytosis 1+, Sodium Level 144, Potassium Level 4.2, Chloride Level 111H, Carbon Dioxide Level 25, Anion Gap 8, Blood Urea Nitrogen 49H, Creatinine 1.0, Estimat Glomerular Filtration Rate , Glucose Level 119H, Lactic Acid Level 1.90, Calcium Level 8.0L, Magnesium Level 1.5L, Total Bilirubin 0.4, Aspartate Amino Transf (AST/SGOT) 18, Alanine Aminotransferase ( ALT/SGPT) 18, Alkaline Phosphatase 74, Troponin I 0.037, Total Protein 6.7, Albumin 1.7L, Globulin 5.0, Albumin/Globulin Ratio 0.3L, Thyroid Stimulating Hormone (TSH) 1.224 08/23/18 02:00: White Blood Count 11.6H, Red Blood Count 3.00L, Hemoglobin 9.0L, Hematocrit 28.2L, Mean Corpuscular Volume 94, Mean Corpuscular Hemoglobin 30.1, Mean Corpuscular Hemoglobin Concent 32.0, Red Cell Distribution Width 14.9H, Platelet Count 200, Mean Platelet Volume 6.4L, Neutrophils (%) (Auto) , Lymphocytes (%) (Auto) , Monocytes (%) (Auto) , Eosinophils (%) (Auto) , Basophils (%) (Auto) , Sodium Level 144, Potassium Level 3.8, Chloride Level 112H, Carbon Dioxide Level 25, Anion Gap 7, Blood Urea Nitrogen 31H, Creatinine 0.8, Estimat Glomerular Filtration Rate , Glucose Level 175H, Calcium Level 8.0L , Magnesium Level 2.6H, Total Bilirubin 0.2, Aspartate Amino Transf (AST/SGOT) 19, Alanine Aminotransferase (ALT/SGPT) 17, Alkaline Phosphatase 88, Total Protein 6.0L, Albumin 1.3L, Globulin 4.7, Albumin/Globulin Ratio 0.3L, Pro-B- Type Natriuretic Peptide 3716H, Vancomycin Level Trough 16.7H Height (Feet): 5 Height (Inches): 6.00 Weight (Pounds): 158 General Appearance: WD/WN, lethargic, confused, thin Neck: supple Cardiovascular: regular rhythm Respiratory/Chest: rhonchi - bilaterally Abdomen: normal bowel sounds, non tender, soft, no organomegaly Neurologic: unresponsive Michael Zuniga MD Aug 23, 2018 06:07
--- NOTE | 2018-08-23 07:00 | History and Physical Report ---
DATE OF ADMISSION: 08/21/2018 CHIEF COMPLAINT: Shock, possible acute myocardial infarction. HISTORY OF PRESENT ILLNESS: The patient is an unfortunate 83-year-old male. He has a history of baseline dementia. He has a prior history of suprapubic catheter as well as a G-tube. He was transferred from a residential facility after he was found to be lethargic, confused, and hypoxic. On evaluation in the emergency room, the patient was initially placed on a nonrebreather mask. His O2 saturations did improve. His chest x-ray showed a right-sided infiltrate. He was also noted to have elevated WBCs in his urine. The patient was pancultured. Broad-spectrum IV antibiotics have been instituted. The patient is now admitted for further evaluation and care. PAST MEDICAL HISTORY: Significant for history of dementia, history of dysphagia, status post G-tube, atherosclerotic cardiovascular disease, diabetes, hypertension, ischemic cardiomyopathy, and seizure disorder. PAST SURGICAL HISTORY: G-tube and suprapubic catheter. CURRENT MEDICATIONS: Reconciled and reviewed. ALLERGIES: None. FAMILY HISTORY: None. SOCIAL HISTORY: There is no known history of tobacco, ethanol, or drugs. REVIEW OF SYSTEMS: Unobtainable from the patient as he is confused. PHYSICAL EXAMINATION: VITAL SIGNS: Initial temperature was 99.8, pulse was 112, respirations 36, and blood pressure 88/53. GENERAL: The patient ____ thin male, in no apparent distress. He is confused and minimally verbal. NECK: Supple. There is no jugular venous distention. HEART: Regular rate and rhythm. LUNGS: Significant for bilateral rhonchi. ABDOMEN: Soft, nontender, and nondistended. EXTREMITIES: Without clubbing or cyanosis. LABORATORY DATA: White count was 20,000, hemoglobin 12, hematocrit 37, and platelet count of 330. Coags are normal. Sodium 144, potassium 4.2, chloride 111, bicarbonate 25, BUN 49, and creatinine is 1. Lactic acid was 3.2. Troponin is 0.037. UA showed 5 to 10 wbc's. ASSESSMENT: This is an unfortunate elderly male with multiple medical problems admitted with complaints of sepsis, secondary to pneumonia. 1. Sepsis. 2. Pneumonia. 3. Respiratory failure. 4. Atherosclerotic cardiovascular disease. 5. Possible acute myocardial infarction. 6. Dementia. 7. Diabetes. PLAN: 1. Intravenous antibiotics. 2. Respiratory treatments. 3. Continue G-tube ____. 4. Follow up pending cultures. 5. Fluid resuscitation. 6. DVT and stress ulcer prophylaxis ____. Michael Zuniga M.D. DR: JAYLA JOB#: [id number] CC:
[2018-08-23 08:00] VITALS: BP 124/63
[2018-08-23] MEDS: Aspirin Baby 81mg GT SCH (08:33)
[2018-08-23] MEDS: Heparin 5000 units/ml inj SUBQ SCH ×2 (08:34→21:20)
--- NOTE | 2018-08-23 09:59 | Diagnostic Imaging Report ---
Indication: Dyspnea Technique: One view of the chest Comparison: 08/21/2018 Findings: Dense consolidation at the right lung base persists. There is probably some associated pleural fluid. No new infiltrates. Normal heart size. Right shoulder degenerative changes again noted. Impression: Unchanged right basilar infiltrate, over 3 days
--- NOTE | 2018-08-23 10:35 | Urology Progress Note ---
Assessment/Plan Assessment/Plan 1. Urinary retention with chronic suprapubic tube. 2. Benign prostatic hypertrophy history. 3. Neurogenic bladder. 4. Urinary tract infection and colonization. 5. Hematuria. 6. Proteinuria. I personally removed old SP tube new 22f cath placed, hand irrigated and position satisfactory hand irrigate PRN cont with abx as ordered cysto later f/u on blood cx Subjective Allergies: Coded Allergies: No Known Allergies (Unverified , 06/17/18) Subjective all noted, looks comfortable Objective Last 24 Hour Vital Signs Date Time Temp Pulse Resp B/P (MAP) Pulse Ox O2 Delivery O2 Flow Rate FiO2 08/23/18 10:13 94 Nasal Cannula 3.0 32 08/23/18 10:12 Nasal Cannula 3.0 32 08/23/18 09:32 79 24 98 Facial 35 08/23/18 08:00 40 08/23/18 08:00 Bi-pap 08/23/18 08:00 98.4 69 24 124/63 (83) 99 98.4 08/23/18 07:53 70 08/23/18 07:18 76 25 99 Facial 40 08/23/18 05:24 82 16 99 Facial 40 08/23/18 04:05 65 08/23/18 04:00 98.2 62 16 120/55 (76) 100 98.2 08/23/18 04:00 Bi-pap 08/23/18 04:00 40 08/23/18 03:27 85 16 99 Facial 40 08/23/18 01:22 77 25 97 Facial 40 08/23/18 00:00 65 08/23/18 00:00 97.7 74 18 120/58 (78) 99 97.7 08/23/18 00:00 Bi-pap 08/22/18 22:34 78 17 99 Facial 40 08/22/18 21:01 89 24 99 Facial 40 08/22/18 20:00 98.6 80 20 110/53 (72) 100 98.6 08/22/18 20:00 Bi-pap 08/22/18 20:00 40 08/22/18 19:53 65 08/22/18 18:48 71 17 98 Facial 40 08/22/18 16:34 79 22 99 Facial 40 08/22/18 16:00 98.6 80 20 120/54 (76) 100 98.6 08/22/18 16:00 Bi-pap 08/22/18 16:00 40 08/22/18 16:00 79 08/22/18 15:31 86 21 98 Facial 40 08/22/18 12:54 65 19 99 Facial 40 08/22/18 12:00 98.8 91 20 139/63 (88) 100 98.8 08/22/18 12:00 Bi-pap 08/22/18 12:00 85 08/22/18 12:00 40 08/22/18 11:05 49 25 98 Facial 40 Intake and Output 08/22/18 08/23/18 19:00 07:00 Intake Total 540 ml 670 ml Output Total 800 ml 700 ml Balance -260 ml -30 ml Intake Free Water 120 ml 130 ml Tube Feeding 420 ml 540 ml Output Urine Total 800 ml 700 ml # Bowel Movements 2 Microbiology Date/Time Source Procedure Growth Status 08/21/18 15:15 Blood Blood Culture - Preliminary NO GROWTH AFTER 24 HOURS Resulted 08/21/18 15:15 Urine,Clean Catch Urine Culture - Final Providencia Stuartii Complete 08/21/18 17:07 Rectum - Final NO CARBAPENEM-RESISTANT ENTEROBACTERI... Complete Current Medications Medications (Trade) Dose Ordered Sig/Benjamin Route PRN Reason Start Time Stop Time Status Last Admin Dose Admin Aspirin (ASA) 81 mg DAILY GT 08/23/18 09:00 09/22/18 08:59 08/23/18 08:33 Dextrose (Dextrose 50%) 25 ml Q30M PRN IV Hypoglycemia 08/21/18 20:00 09/20/18 19:59 Dextrose (Dextrose 50%) 50 ml Q30M PRN IV Hypoglycemia 08/21/18 20:00 09/20/18 19:59 Heparin Sodium (Porcine) (Heparin 5000 units/ml) 5,000 units EVERY 12 HOURS SUBQ 08/21/18 21:00 09/20/18 20:59 08/23/18 08:34 Insulin Aspart (NovoLOG) EVERY 6 HOURS SUBQ 08/23/18 12:00 09/22/18 11:59 Levothyroxine Sodium (Synthroid) 125 mcg DAILY@0630 ORAL 08/24/18 06:30 09/23/18 06:29 Piperacillin Sod/ Tazobactam Sod 3.375 gm/Dextrose 110 ml @ 27.5 mls/hr EVERY 8 HOURS IVPB 08/21/18 22:00 08/26/18 21:59 08/23/18 05:59 Sodium Chloride 1,000 ml @ 150 mls/hr Q6H40M IV 08/21/18 20:00 09/20/18 19:59 08/23/18 05:20 Vancomycin HCl (Vanco rx to dose) 1 ea DAILY PRN MISC Per rx protocol 08/21/18 20:00 09/20/18 19:59 Vancomycin/Sodium Chloride 250 ml @ 166.667 mls/hr Q12H IVPB 08/22/18 03:00 08/27/18 02:59 08/23/18 02:43 Laboratory Tests 08/23/18 02:00: White Blood Count 11.6H, Red Blood Count 3.00L, Hemoglobin 9.0L, Hematocrit 28.2L, Mean Corpuscular Volume 94, Mean Corpuscular Hemoglobin 30.1, Mean Corpuscular Hemoglobin Concent 32.0, Red Cell Distribution Width 14.9H, Platelet Count 200, Mean Platelet Volume 6.4L, Neutrophils (%) (Auto) , Lymphocytes (%) (Auto) , Monocytes (%) (Auto) , Eosinophils (%) (Auto) , Basophils (%) (Auto) , Sodium Level 144, Potassium Level 3.8, Chloride Level 112H, Carbon Dioxide Level 25, Anion Gap 7, Blood Urea Nitrogen 31H, Creatinine 0.8, Estimat Glomerular Filtration Rate , Glucose Level 175H, Calcium Level 8.0L , Magnesium Level 2.6H, Total Bilirubin 0.2, Aspartate Amino Transf (AST/SGOT) 19, Alanine Aminotransferase (ALT/SGPT) 17, Alkaline Phosphatase 88, Pro-B-Type Natriuretic Peptide 3716H, Total Protein 6.0L, Albumin 1.3L, Globulin 4.7, Albumin/Globulin Ratio 0.3L, Vancomycin Level Trough 16.7H 08/23/18 07:40: Arterial Blood pH 7.434, Arterial Blood Partial Pressure CO2 32.1L, Arterial Blood Partial Pressure O2 101.0H, Arterial Blood HCO3 21.0L, Arterial Blood Oxygen Saturation 97.1, Arterial Blood Base Excess -2.7L, Shawn Test Positive Height (Feet): 5 Height (Inches): 6.00 Weight (Pounds): 158 Objective exam stable, urine clearing ALEJANDRO COLLIER Aug 23, 2018 10:35
[2018-08-23 12:00] VITALS: BP 131/66
[2018-08-23 16:00] VITALS: BP 128/62
[2018-08-23 20:00] VITALS: BP 138/76
--- NOTE | 2018-08-23 23:00 | Consultation ---
DATE OF CONSULTATION: 08/23/2018 INFECTIOUS DISEASE CONSULTATION REFERRING PHYSICIAN: Bryon Ramirez M.D. REASON FOR CONSULTATION: Urinary tract infection. HISTORY OF PRESENTING ILLNESS: This is an 83-year-old gentleman with history of dementia, dysphagia status post G-tube placement, diabetes, hypertension, cardiomyopathy, and seizures, who comes in with increasing confusion and lethargicness. He was also found to be hypoxic. His chest x-ray showed pneumonia as well as urinary tract infection and an Infectious Diseases consultation has been obtained for antibiotics. PAST MEDICAL HISTORY: 1. History of dementia. 2. Dysphagia, status post G-tube placement. 3. Atherosclerotic cardiovascular disease. 4. Diabetes. 5. Hypertension. 6. Cardiomyopathy. 7. Seizure disorder. 8. Suprapubic catheter placement. SOCIAL HISTORY: No history of smoking, alcohol, or drug use. FAMILY HISTORY: Unknown. REVIEW OF SYSTEMS: Unable to obtain currently. MEDICATIONS: As an inpatient, he is on Synthroid, insulin, aspirin, vancomycin, Zosyn, and subcutaneous heparin. ALLERGIES: No known drug allergies. PHYSICAL EXAMINATION: VITAL SIGNS: Temperature of 98.4, T-max of 98.8, pulse of 79, respiratory rate 24, blood pressure 124/63, and O2 saturation of 94%. HEENT: Pupils equally reactive to light and accommodation. Mouth appears clean without thrush. NECK: Supple. No adenopathy. No JVD. CARDIOVASCULAR: Regular rate and rhythm. No murmurs. LUNGS: Clear to auscultation bilaterally. No crackles. No wheezes. ABDOMEN: Soft and nontender. G-tube site appears clean. Suprapubic catheter noted. EXTREMITIES: No cyanosis, no clubbing, and no edema LABORATORY AND DIAGNOSTIC DATA: White count was 20 on 08/21/2018. White count today 11.6, hemoglobin 9, hematocrit 28.2, MCV 94, and platelet count of 200,000. Sodium 144, potassium 3.8, chloride 112, bicarbonate 25, BUN 31, creatinine 0.8, glucose 175, and calcium of 8. Total bilirubin 0.2. AST 19, ALT 17, and alkaline phosphatase 88. Troponin 0.03. Beta-natriuretic peptide 3716. Total protein 6. Albumin 1.3. UA showing 5 to 10 white cells. Urine culture is growing Providencia stuartii, which is piperacillin tazobactam susceptible, ceftriaxone susceptible, ertapenem susceptible. Blood cultures are negative so far. Rectal swab was negative for CRE. Chest x-ray showing possible small right-sided effusion, dense consolidation at the right lung base noted. ASSESSMENT: This is an 83-year-old gentleman with history of dementia, atherosclerotic heart disease, diabetes, and hypertension who comes in with: 1. Providencia urinary tract infection. 2. There is also right-sided pneumonia. 3. Leukocytosis is improving. 4. Diabetes. 5. Hypertension. PLAN: 1. Continue IV vancomycin and Zosyn. 2. We will order sputum for Gram stain and culture. 3. We will follow up cultures and adjust antibiotics accordingly. I would like to thank, Dr. Zuniga for this consultation. Barbra Oshea M.D. DR: EMBER JOB#: [id number] CC: Michael Zuniga M.D.
[2018-08-24] VITALS: BP 134/65
[2018-08-24] MEDS: Vancomycin 750mg/NS 250ml IVPB SCH ×2 (02:45→16:23)
[2018-08-24 04:00] VITALS: BP 144/73
--- NOTE | 2018-08-24 05:15 | Progress Note ---
DATE: 08/23/2018 CARDIOLOGY PROGRESS NOTE SUBJECTIVE: The patient remains on BiPAP support. He is confused. He is tolerating feedings by G-tube. He has been afebrile. He has increasing drainage from his right second toe. He continues to have congestion. OBJECTIVE: VITAL SIGNS: Blood pressure 120/55, pulse 62, respirations 16, and afebrile. Monitored rhythm sinus with atrial ectopy. LUNGS: Coarse breath sounds. Scattered rhonchi. HEART: Regular rhythm and rate. Normal S1, S2. No new murmur. ABDOMEN: Soft with a G-tube site. EXTREMITIES: No edema. There is drainage from the extensor surface of the distal right second toe. Distal pulses are diminished. LABORATORY DATA: White count 11.6 and hemoglobin 9. Sodium 144, potassium 3.8, bicarbonate 25, BUN 31, and creatinine 0.8. Lactic acid has normalized. Magnesium post repletion is 2.6 and albumin 1.3. Pro-natriuretic peptide is 3700. IMPRESSION: 1. Sepsis with recovering shock. 2. Lactic acidosis, resolved. 3. Healthcare-acquired pneumonia. 4. Right second toe cellulitis and possible osteomyelitis. 5. Proteus urinary tract infection. 6. Acute on chronic diastolic congestive heart failure. 7. Hypovolemia and dehydration, corrected. 8. Severe protein-calorie malnutrition remains with serious condition and guarded prognosis. 9. Acute myocardial infarction, uncomplicated. PLAN: 1. Antimicrobials per Infectious Disease [employer] consultant. 2. Podiatry consultation. 3. BiPAP support. 4. Adjust IV fluids. 5. Antiplatelet therapy. 6. Consider beta-vaughn once blood pressure parameters remain more stable. We will monitor this high risk patient closely. We will follow up blood cultures that he is at increased risk for endocarditis. Bryon Ramirez M.D. DR: CHAN JOB#: [id number] CC:
[2018-08-24] MEDS: Piperacillin/Tazobactam 3.375 GM in D5W 110 ML IVPB SCH ×3 (06:06→21:46)
[2018-08-24] MEDS: Levothyroxine 125mcg tab ORAL SCH (06:06)
[2018-08-24] MEDS: NovoLOG Insulin Flexpen SUBQ SCH ×4 (06:07→23:46)
--- NOTE | 2018-08-24 07:37 | General Progress Note ---
Assessment/Plan Problem List: (1) UTI (urinary tract infection) ICD Codes: N39.0 - Urinary tract infection, site not specified SNOMED: 07294636 Qualifiers: Qualified Codes: T83.511A - Infection and inflammatory reaction due to indwelling urethral catheter, initial encounter; N39.0 - Urinary tract infection , site not specified (2) Severe sepsis ICD Codes: A41.9 - Sepsis, unspecified organism; R65.20 - Severe sepsis without septic shock SNOMED: 36530589 (3) NSTEMI (non-ST elevated myocardial infarction) ICD Codes: I21.4 - Non-ST elevation (NSTEMI) myocardial infarction SNOMED: 605611758 (4) Right lower lobe pneumonia ICD Codes: J18.1 - Lobar pneumonia, unspecified organism SNOMED: 717082285 Qualifiers: Qualified Codes: J18.1 - Lobar pneumonia, unspecified organism (5) Elevated lactic acid level ICD Codes: R79.89 - Other specified abnormal findings of blood chemistry SNOMED: 2717265 Status: stable, progressing Assessment/Plan iv abx follow up cultures bipap qhs and prn pulm eval gt feeds Subjective ROS Limited/Unobtainable: Yes Constitutional: Reports: no symptoms HEENT: Reports: no symptoms Cardiovascular: Reports: no symptoms Respiratory: Reports: shortness of breath Gastrointestinal/Abdominal: Reports: difficulty swallowing Genitourinary: Reports: no symptoms Neurologic/Psychiatric: Reports: pre-existing deficit Endocrine: Reports: no symptoms Hematologic/Lymphatic: Reports: no symptoms Allergies: Coded Allergies: No Known Allergies (Unverified , 06/17/18) All Systems: reviewed and negative except above Subjective on bipap at night. no events. confused. tolerating feeds. on iv abx for pna and uti Objective Last 24 Hour Vital Signs Date Time Temp Pulse Resp B/P (MAP) Pulse Ox O2 Delivery O2 Flow Rate FiO2 08/24/18 04:55 66 25 99 Facial 35 08/24/18 04:00 98.1 68 24 144/73 (96) 99 98.1 08/24/18 04:00 35 08/24/18 04:00 Nasal Cannula 4.0 08/24/18 03:39 84 08/24/18 03:34 78 23 99 Facial 35 08/24/18 00:48 63 22 99 Facial 35 08/24/18 00:00 Nasal Cannula 4.0 08/24/18 00:00 98.9 68 27 134/65 (88) 99 98.9 08/23/18 23:44 66 08/23/18 22:49 61 23 99 Facial 35 08/23/18 22:07 78 30 97 Facial 35 08/23/18 20:00 98.8 77 20 138/76 (96) 96 98.8 08/23/18 20:00 Nasal Cannula 4.0 08/23/18 20:00 4.0 08/23/18 19:38 90 08/23/18 19:28 74 20 96 08/23/18 19:27 Nasal Cannula 4.0 36 08/23/18 19:25 96 Nasal Cannula 4.0 36 08/23/18 16:00 4.0 08/23/18 16:00 Nasal Cannula 4.0 08/23/18 16:00 98.6 75 24 128/62 (84) 98 98.6 08/23/18 16:00 77 08/23/18 15:35 71 20 95 08/23/18 13:16 77 96 08/23/18 12:00 3.0 08/23/18 12:00 98.0 81 24 131/66 (87) 97 98.0 08/23/18 12:00 Nasal Cannula 3.0 08/23/18 12:00 80 08/23/18 11:23 75 22 93 08/23/18 10:13 94 Nasal Cannula 3.0 32 08/23/18 10:12 Nasal Cannula 3.0 32 08/23/18 09:32 79 24 98 Facial 35 08/23/18 08:00 40 08/23/18 08:00 Bi-pap 08/23/18 08:00 98.4 69 24 124/63 (83) 99 98.4 08/23/18 07:53 70 Intake and Output 08/23/18 08/24/18 19:00 07:00 Intake Total 3152.000 ml 2752.500 ml Output Total 900 ml 700 ml Balance 2252.000 ml 2052.500 ml Intake Free Water 260 ml 120 ml IV Total 2202.000 ml 1982.500 ml Tube Feeding 690 ml 650 ml Output Urine Total 900 ml 700 ml # Bowel Movements 2 Laboratory Tests 08/23/18 07:40: Arterial Blood pH 7.434, Arterial Blood Partial Pressure CO2 32.1L, Arterial Blood Partial Pressure O2 101.0H, Arterial Blood HCO3 21.0L, Arterial Blood Oxygen Saturation 97.1, Arterial Blood Base Excess -2.7L, Shawn Test Positive 08/23/18 15:13: Arterial Blood pH 7.440, Arterial Blood Partial Pressure CO2 32.0L, Arterial Blood Partial Pressure O2 61.0L, Arterial Blood HCO3 21.6L, Arterial Blood Oxygen Saturation 91.7L, Arterial Blood Base Excess -1.9, Shawn Test Positive Height (Feet): 5 Height (Inches): 6.00 Weight (Pounds): 145 General Appearance: WD/WN, alert Neck: supple Cardiovascular: normal rate, regular rhythm Respiratory/Chest: chest wall non-tender, lungs clear, normal breath sounds Abdomen: normal bowel sounds, non tender, soft, no organomegaly Neurologic: unresponsive, aphasia Michael Zuniga MD Aug 24, 2018 07:37
[2018-08-24 08:00] VITALS: BP 151/94
[2018-08-24] MEDS: Heparin 5000 units/ml inj SUBQ SCH ×2 (08:42→21:47)
[2018-08-24] MEDS: Aspirin Baby 81mg GT SCH (08:42)
[2018-08-24] MEDS ORDERED: Albuterol/Ipratropium 3ml neb HHN PRN (09:45)
--- NOTE | 2018-08-24 09:57 | Urology Progress Note ---
Assessment/Plan Assessment/Plan 1. Urinary retention with chronic suprapubic tube. 2. Benign prostatic hypertrophy history. 3. Neurogenic bladder. 4. Urinary tract infection and colonization. 5. Hematuria. 6. Proteinuria. keep SP tube, last exchanged 08/23 hand irrigate PRN cont with abx as ordered cysto later f/u on blood cx Subjective Allergies: Coded Allergies: No Known Allergies (Unverified , 06/17/18) Subjective all noted, looks comfortable Objective Last 24 Hour Vital Signs Date Time Temp Pulse Resp B/P (MAP) Pulse Ox O2 Delivery O2 Flow Rate FiO2 08/24/18 09:31 63 08/24/18 07:29 Nasal Cannula 4.0 36 08/24/18 07:29 98 Nasal Cannula 4.0 36 08/24/18 04:55 66 25 99 Facial 35 08/24/18 04:00 98.1 68 24 144/73 (96) 99 98.1 08/24/18 04:00 35 08/24/18 04:00 Nasal Cannula 4.0 08/24/18 03:39 84 08/24/18 03:34 78 23 99 Facial 35 08/24/18 00:48 63 22 99 Facial 35 08/24/18 00:00 Nasal Cannula 4.0 08/24/18 00:00 98.9 68 27 134/65 (88) 99 98.9 08/23/18 23:44 66 08/23/18 22:49 61 23 99 Facial 35 08/23/18 22:07 78 30 97 Facial 35 08/23/18 20:00 98.8 77 20 138/76 (96) 96 98.8 08/23/18 20:00 Nasal Cannula 4.0 08/23/18 20:00 4.0 08/23/18 19:38 90 08/23/18 19:28 74 20 96 08/23/18 19:27 Nasal Cannula 4.0 36 08/23/18 19:25 96 Nasal Cannula 4.0 36 08/23/18 16:00 4.0 08/23/18 16:00 Nasal Cannula 4.0 08/23/18 16:00 98.6 75 24 128/62 (84) 98 98.6 08/23/18 16:00 77 08/23/18 15:35 71 20 95 08/23/18 13:16 77 96 08/23/18 12:00 3.0 08/23/18 12:00 98.0 81 24 131/66 (87) 97 98.0 08/23/18 12:00 Nasal Cannula 3.0 08/23/18 12:00 80 08/23/18 11:23 75 22 93 08/23/18 10:13 94 Nasal Cannula 3.0 32 08/23/18 10:12 Nasal Cannula 3.0 32 Intake and Output 08/23/18 08/24/18 19:00 07:00 Intake Total 3152.000 ml 2752.500 ml Output Total 900 ml 700 ml Balance 2252.000 ml 2052.500 ml Intake Free Water 260 ml 120 ml IV Total 2202.000 ml 1982.500 ml Tube Feeding 690 ml 650 ml Output Urine Total 900 ml 700 ml # Bowel Movements 2 Microbiology Date/Time Source Procedure Growth Status 08/21/18 15:15 Blood Blood Culture - Preliminary NO GROWTH AFTER 48 HOURS Resulted 08/21/18 15:15 Urine,Clean Catch Urine Culture - Final Providencia Stuartii Complete 08/21/18 17:07 Rectum - Final NO CARBAPENEM-RESISTANT ENTEROBACTERI... Complete Current Medications Medications (Trade) Dose Ordered Sig/Benjamin Route PRN Reason Start Time Stop Time Status Last Admin Dose Admin Albuterol/ Ipratropium (Albuterol/ Ipratropium) 3 ml Q6HRT PRN HHN Bronchospasm 08/24/18 09:45 08/29/18 09:44 Aspirin (ASA) 81 mg DAILY GT 08/23/18 09:00 09/22/18 08:59 08/24/18 08:42 Dextrose (Dextrose 50%) 25 ml Q30M PRN IV Hypoglycemia 08/21/18 20:00 09/20/18 19:59 Dextrose (Dextrose 50%) 50 ml Q30M PRN IV Hypoglycemia 08/21/18 20:00 09/20/18 19:59 Heparin Sodium (Porcine) (Heparin 5000 units/ml) 5,000 units EVERY 12 HOURS SUBQ 08/21/18 21:00 09/20/18 20:59 08/24/18 08:42 Insulin Aspart (NovoLOG) EVERY 6 HOURS SUBQ 08/23/18 12:00 09/22/18 11:59 08/24/18 06:07 Levothyroxine Sodium (Synthroid) 125 mcg DAILY@0630 ORAL 08/24/18 06:30 09/23/18 06:29 08/24/18 06:06 Piperacillin Sod/ Tazobactam Sod 3.375 gm/Dextrose 110 ml @ 27.5 mls/hr EVERY 8 HOURS IVPB 08/21/18 22:00 08/26/18 21:59 08/24/18 06:06 Sodium Chloride 1,000 ml @ 150 mls/hr Q6H40M IV 08/21/18 20:00 09/20/18 19:59 08/24/18 08:43 Vancomycin HCl (Vanco rx to dose) 1 ea DAILY PRN MISC Per rx protocol 08/21/18 20:00 09/20/18 19:59 Vancomycin/Sodium Chloride 250 ml @ 166.667 mls/hr Q12H IVPB 08/22/18 03:00 08/27/18 02:59 08/24/18 02:45 Laboratory Tests 08/23/18 15:13: Arterial Blood pH 7.440, Arterial Blood Partial Pressure CO2 32.0L, Arterial Blood Partial Pressure O2 61.0L, Arterial Blood HCO3 21.6L, Arterial Blood Oxygen Saturation 91.7L, Arterial Blood Base Excess -1.9, Shawn Test Positive Height (Feet): 5 Height (Inches): 6.00 Weight (Pounds): 145 Objective exam stable, urine clearing ALEJANDRO COLLIER Aug 24, 2018 09:57
--- NOTE | 2018-08-24 11:07 | Infectious Diseases Prog Note ---
Assessment/Plan Assessment/Plan A: Complicated UTI Pneumonia Hypoxic respiratory failure Dementia DM HPN R second toe cellulitis P; Continue Zosyn & Vancomycin Subjective ROS Limited/Unobtainable: Yes Allergies: Coded Allergies: No Known Allergies (Unverified , 06/17/18) Objective Vital Signs Last 24 Hour Vital Signs Date Time Temp Pulse Resp B/P (MAP) Pulse Ox O2 Delivery O2 Flow Rate FiO2 08/24/18 10:48 71 41 95 Facial 35 08/24/18 09:31 63 08/24/18 09:00 4.0 08/24/18 08:00 97.2 89 24 151/94 (113) 94 97.2 08/24/18 08:00 35 08/24/18 07:29 Nasal Cannula 4.0 36 08/24/18 07:29 98 Nasal Cannula 4.0 36 08/24/18 04:55 66 25 99 Facial 35 08/24/18 04:00 98.1 68 24 144/73 (96) 99 98.1 08/24/18 04:00 35 08/24/18 04:00 Nasal Cannula 4.0 08/24/18 03:39 84 08/24/18 03:34 78 23 99 Facial 35 08/24/18 00:48 63 22 99 Facial 35 08/24/18 00:00 Nasal Cannula 4.0 08/24/18 00:00 98.9 68 27 134/65 (88) 99 98.9 08/23/18 23:44 66 08/23/18 22:49 61 23 99 Facial 35 08/23/18 22:07 78 30 97 Facial 35 08/23/18 20:00 98.8 77 20 138/76 (96) 96 98.8 08/23/18 20:00 Nasal Cannula 4.0 08/23/18 20:00 4.0 08/23/18 19:38 90 08/23/18 19:28 74 20 96 08/23/18 19:27 Nasal Cannula 4.0 36 08/23/18 19:25 96 Nasal Cannula 4.0 36 08/23/18 16:00 4.0 08/23/18 16:00 Nasal Cannula 4.0 08/23/18 16:00 98.6 75 24 128/62 (84) 98 98.6 08/23/18 16:00 77 08/23/18 15:35 71 20 95 10/2/18 13:16 77 96 08/23/18 12:00 3.0 08/23/18 12:00 98.0 81 24 131/66 (87) 97 98.0 08/23/18 12:00 Nasal Cannula 3.0 08/23/18 12:00 80 08/23/18 11:23 75 22 93 Height (Feet): 5 Height (Inches): 6.00 Weight (Pounds): 145 HEENT: other - on BIPAP Respiratory/Chest: respiratory distress, decreased breath sounds Cardiovascular: normal rate Abdomen: soft, non tender, other - GT feeding Genitourinary: other - Suprapubic catheter Extremities: no edema Neurologic/Psychiatric: alert, responsive Microbiology Date/Time Source Procedure Growth Status 08/21/18 15:15 Blood Blood Culture - Preliminary NO GROWTH AFTER 48 HOURS Resulted 08/21/18 15:00 Blood Blood Culture - Preliminary NO GROWTH AFTER 48 HOURS Resulted 08/21/18 15:15 Urine,Clean Catch Urine Culture - Final Providencia Stuartii Complete 08/21/18 17:07 Rectum - Final NO CARBAPENEM-RESISTANT ENTEROBACTERI... Complete Laboratory Tests Test 08/23/18 15:13 Arterial Blood pH 7.440 (7.350-7.450) Arterial Blood Partial Pressure CO2 32.0 mmHg (35.0-45.0) L Arterial Blood Partial Pressure O2 61.0 mmHg (75.0-100.0) L Arterial Blood HCO3 21.6 mmol/L (22.0-26.0) L Arterial Blood Oxygen Saturation 91.7 % (95-100) L Arterial Blood Base Excess -1.9 (-2-2) Shawn Test Positive Current Medications Medications (Trade) Dose Ordered Sig/Benjamin Route PRN Reason Start Time Stop Time Status Last Admin Dose Admin Albuterol/ Ipratropium (Albuterol/ Ipratropium) 3 ml Q6HRT PRN HHN Bronchospasm 08/24/18 09:45 08/29/18 09:44 Aspirin (ASA) 81 mg DAILY GT 08/23/18 09:00 09/22/18 08:59 08/24/18 08:42 Dextrose (Dextrose 50%) 25 ml Q30M PRN IV Hypoglycemia 08/21/18 20:00 09/20/18 19:59 Dextrose (Dextrose 50%) 50 ml Q30M PRN IV Hypoglycemia 08/21/18 20:00 09/20/18 19:59 Furosemide (Lasix) 40 mg ONCE IV 08/24/18 10:34 08/24/18 11:34 08/24/18 10:45 Heparin Sodium (Porcine) (Heparin 5000 units/ml) 5,000 units EVERY 12 HOURS SUBQ 08/21/18 21:00 09/20/18 20:59 08/24/18 08:42 Insulin Aspart (NovoLOG) EVERY 6 HOURS SUBQ 08/23/18 12:00 09/22/18 11:59 08/24/18 06:07 Levothyroxine Sodium (Synthroid) 125 mcg DAILY@0630 ORAL 08/24/18 06:30 09/23/18 06:29 08/24/18 06:06 Piperacillin Sod/ Tazobactam Sod 3.375 gm/Dextrose 110 ml @ 27.5 mls/hr EVERY 8 HOURS IVPB 08/21/18 22:00 08/26/18 21:59 08/24/18 06:06 Sodium Chloride 1,000 ml @ 150 mls/hr Q6H40M IV 08/21/18 20:00 09/20/18 19:59 08/24/18 08:43 Vancomycin HCl (Vanco rx to dose) 1 ea DAILY PRN MISC Per rx protocol 08/21/18 20:00 09/20/18 19:59 Vancomycin/Sodium Chloride 250 ml @ 166.667 mls/hr Q12H IVPB 08/22/18 03:00 08/27/18 02:59 08/24/18 02:45 Slade Odonnell MD Aug 24, 2018 11:07
[2018-08-24 11:53] LABS: BASOPHILS % (AUTO) 0.6 % (0.0-2.0); EOSINOPHILS % (AUTO) 4.2 % (0.0-3.0); HEMATOCRIT 36.7 % (42.0-52.0); HEMOGLOBIN 11.8 G/DL (14.2-18.0); LYMPHOCYTES % (AUTO) 10.9 % (20.0-45.0); MEAN CORPUSCULAR VOLUME 94 FL (80-99); MONOCYTES % (AUTO) 5.7 % (1.0-10.0); NEUTROPHILS % (AUTO) 78.7 % (45.0-75.0); PLATELET COUNT 252 K/UL (150-450); RED BLOOD COUNT 3.92 M/UL (4.70-6.10); RED CELL DISTRIBUTION WIDTH 14.7 % (11.6-14.8); WHITE BLOOD COUNT 10.8 K/UL (4.8-10.8)
[2018-08-24 12:00] VITALS: BP 135/94
[2018-08-24 12:30] LABS: ALANINE AMINOTRANSFERASE 16 U/L (12-78); ALBUMIN 1.3 G/DL (3.4-5.0); ALBUMIN/GLOBULIN RATIO 0.3 (1.0-2.7); ALKALINE PHOSPHATASE 94 U/L (46-116); ANION GAP 11 mmol/L (5-15); ASPARTATE AMINO TRANSFERASE 20 U/L (15-37); BILIRUBIN,TOTAL 0.3 MG/DL (0.2-1.0); BLOOD UREA NITROGEN 32 mg/dL (7-18); CARBON DIOXIDE 22 MMOL/L (21-32); CHLORIDE 109 MMOL/L (98-107); CREATININE 0.6 MG/DL (0.55-1.30); POTASSIUM 3.7 MMOL/L (3.5-5.1); SODIUM 142 MMOL/L (136-145)
--- NOTE | 2018-08-24 13:04 | Diagnostic Imaging Report ---
Indication: Dyspnea Technique: One view of the chest Comparison: 09-10 Findings: Again demonstrated is a right-sided pleural effusion and basilar consolidation, parenchymal disease appearing slightly improved when compared to prior study. There is blunting of left costophrenic sulcus again demonstrated. The heart size is normal. The aorta is tortuous and calcified. There are degenerative changes of the right shoulder Impression: Improved but persistent right basilar infiltrate. Unchanged right pleural effusion Probable small left pleural effusion
--- NOTE | 2018-08-24 14:55 | Consultation ---
Consult Note Assessment/Plan A/ 1) Diabetic foot ulcer right 2nd toe - osteo? 2) Necrosis left heel 3) DM 4) Abnormal mobility P/ 1) Cont wound care as ordered with off loading 2) Orders: Arterial ultz BLE, X-rays right foot, ESR, CRP 3) No surgical intervention at this time 4) Will follow Thank you Flo Antunez DPM Aug 24, 2018 14:55
[2018-08-24] MEDS ORDERED: NS 275ml ONE (15:54)
[2018-08-24] MEDS ORDERED: Tubing IV Secondary IV ONE (15:54)
[2018-08-24] MEDS ORDERED: NS Irrig 1000ml ONE (15:54)
[2018-08-24 16:00] VITALS: BP 145/62
--- NOTE | 2018-08-24 19:54 | Cardiology Report ---
APPROVED REPORT EKG Measurement Heart [id number] TN [id number] Sinus tachycardia Pulmonary disease pattern Right bundle branch block Abnormal ECG
[2018-08-24 20:00] VITALS: BP 163/100
[2018-08-25] VITALS: BP 167/90
[2018-08-25] MEDS: Vancomycin 750mg/NS 250ml IVPB SCH (03:35)
[2018-08-25 04:00] VITALS: BP 147/80
--- NOTE | 2018-08-25 04:30 | Consultation ---
DATE OF CONSULTATION: 08/24/2018 CONSULTING PHYSICIAN: Flo De Jesus D.P.M. REQUESTING PHYSICIAN: Bryon Ramirez M.D. REASON FOR CONSULTATION: Diabetic foot ulcers. HISTORY OF PRESENT ILLNESS: The patient is an 83-year-old male who was admitted to [facility] on August 21, 2018 for severe sepsis. The patient is minimally verbal, has a CPAP on and is being cared for by nursing actively. History is obtained through chart review. PAST MEDICAL HISTORY: Significant for suprapubic catheter placement and G-tube placement, dementia, history of dysphagia, atherosclerotic cardiovascular disease, diabetes, hypertension, ischemic myopathy, and seizure disorder. ALLERGIES: He has no known drug allergies. MEDICATIONS: Per MAR and currently include vancomycin, Zosyn, heparin, and aspirin. FAMILY HISTORY: Noncontributory. SOCIAL HISTORY: The patient resides in a nursing home facility. REVIEW OF SYSTEMS: Unobtainable due to patient's current status. PHYSICAL EXAMINATION: VITAL SIGNS: Temperature is 98.1, pulse is 68, respiration rate is 24, blood pressure is 144/73, and saturating 90% on four liters of nasal cannula as well as BiPAP. EXTREMITIES: Lower extremity physical exam, vascular, nonpalpable pedal pulses noted bilaterally. Feet are equally warm. There is no edema or cyanosis noted. DERMATOLOGICAL: Left heel is noted to have what appears to be a superficial necrosis. No signs of acute infection are noted. No drainage or malodor. No signs of periwound erythema. Remaining dermatological exam of the left foot is unremarkable. Right second toe, there is a full-thickness ulceration. There is mild serous drainage noted from the site, no malodor is noted, no periwound erythema or edema noted. Remaining dermatological exam is unremarkable. MUSCULOSKELETAL: No gross deformity is noted. Second toe appears to be floppy, hypermobile. The patient is bedbound. LABORATORY AND DIAGNOSTIC DATA: Laboratory data, white blood cell count is 10.8, down from his admission of 20.0, hemoglobin and hematocrit is 11.8 and 36.7, and platelet count is 252. Potassium is 3.7, BUN is 32, creatinine is 0.6, and glucose is 216. Lactic acid is 1.90. Albumin is 1.3. INR is 1.0. No lower extremity imaging is noted. ASSESSMENT: 1. Diabetic foot ulcer, right second toe, questionable osteomyelitis. 2. Necrosis of left heel. 3. Diabetes mellitus. 4. Abnormal mobility. PLAN: 1. Continue wound care as ordered with offloading. 2. Orders placed, arterial ultrasound bilateral lower extremities, x-rays of the right foot three views, sedimentation rate and CRP. 3. No surgical intervention is indicated at this time. 4. We will follow. Thank you for the courtesy of this consultation, Dr. Ramirez. Flo De Jesus D.P.M. DR: JOSE ANGEL JOB#: [id number] CC:
[2018-08-25] MEDS: Levothyroxine 125mcg tab ORAL SCH (06:30)
[2018-08-25] MEDS: Piperacillin/Tazobactam 3.375 GM in D5W 110 ML IVPB SCH ×3 (06:30→21:16)
[2018-08-25] MEDS: NovoLOG Insulin Flexpen SUBQ SCH ×3 (06:31→17:18)
[2018-08-25 07:37] LABS: HEMATOCRIT 30.9 % (42.0-52.0); HEMOGLOBIN 10.2 G/DL (14.2-18.0); MEAN CORPUSCULAR VOLUME 92 FL (80-99); PLATELET COUNT 237 K/UL (150-450); RED BLOOD COUNT 3.35 M/UL (4.70-6.10); RED CELL DISTRIBUTION WIDTH 14.1 % (11.6-14.8); WHITE BLOOD COUNT 15.9 K/UL (4.8-10.8)
--- NOTE | 2018-08-25 07:54 | General Progress Note ---
Assessment/Plan Problem List: (1) UTI (urinary tract infection) ICD Codes: N39.0 - Urinary tract infection, site not specified SNOMED: 31803520 Qualifiers: Qualified Codes: T83.511A - Infection and inflammatory reaction due to indwelling urethral catheter, initial encounter; N39.0 - Urinary tract infection , site not specified (2) Severe sepsis ICD Codes: A41.9 - Sepsis, unspecified organism; R65.20 - Severe sepsis without septic shock SNOMED: 79348916 (3) NSTEMI (non-ST elevated myocardial infarction) ICD Codes: I21.4 - Non-ST elevation (NSTEMI) myocardial infarction SNOMED: 060029573 (4) Right lower lobe pneumonia ICD Codes: J18.1 - Lobar pneumonia, unspecified organism SNOMED: 840707168 Qualifiers: Qualified Codes: J18.1 - Lobar pneumonia, unspecified organism (5) Elevated lactic acid level ICD Codes: R79.89 - Other specified abnormal findings of blood chemistry SNOMED: 8131886 Status: stable, progressing Assessment/Plan iv abx follow up cultures wean bipap as able resp rx pulm eval gt feeds follow up am labs duplex legs dvt/stress ulcer prophlaxis skin care Subjective ROS Limited/Unobtainable: Yes Constitutional: Reports: malaise, weakness HEENT: Reports: no symptoms Cardiovascular: Reports: no symptoms Respiratory: Reports: shortness of breath Gastrointestinal/Abdominal: Reports: difficulty swallowing Genitourinary: Reports: no symptoms Neurologic/Psychiatric: Reports: pre-existing deficit Endocrine: Reports: no symptoms Hematologic/Lymphatic: Reports: no symptoms Allergies: Coded Allergies: No Known Allergies (Unverified , 06/17/18) All Systems: reviewed and negative except above Subjective did not tolerate wean yesterday. on bipap most of yesterday and overnight. remains poorly responsive. on iv abx. podiatry noted. cxr with persistent infiltrate and farhat effusions Objective Last 24 Hour Vital Signs Date Time Temp Pulse Resp B/P (MAP) Pulse Ox O2 Delivery O2 Flow Rate FiO2 08/25/18 07:45 Nasal Cannula 4.0 36 08/25/18 07:45 98 Nasal Cannula 4.0 36 08/25/18 05:10 80 27 98 Facial 35 08/25/18 04:22 91 08/25/18 04:00 Bi-pap 08/25/18 04:00 98.5 95 35 147/80 (102) 98 98.5 08/25/18 04:00 35 08/25/18 03:05 78 36 98 Facial 35 08/25/18 01:06 70 27 97 Facial 35 08/25/18 00:09 91 08/25/18 00:00 97.6 77 34 167/90 (115) 97 97.6 08/25/18 00:00 Bi-pap 08/24/18 22:51 95 31 97 Facial 35 08/24/18 20:00 4.0 08/24/18 20:00 97.6 71 24 163/100 (121) 97 97.6 08/24/18 20:00 Bi-pap 08/24/18 19:05 89 08/24/18 19:04 Nasal Cannula 4.0 36 08/24/18 19:04 96 Nasal Cannula 4.0 36 08/24/18 17:04 91 08/24/18 16:00 97.5 95 18 145/62 (89) 100 97.5 08/24/18 16:00 Bi-pap 08/24/18 16:00 4.0 08/24/18 15:26 74 22 100 Nasal Cannula 4.0 36 08/24/18 15:18 78 20 98 Nasal Cannula 4.0 36 08/24/18 14:25 88 08/24/18 13:15 74 19 96 Facial 35 08/24/18 12:00 35 08/24/18 12:00 Bi-pap 08/24/18 12:00 97.5 95 22 135/94 (108) 100 97.5 08/24/18 10:48 71 41 95 Facial 35 08/24/18 09:31 63 08/24/18 09:00 4.0 08/24/18 08:00 97.2 89 24 151/94 (113) 94 97.2 08/24/18 08:00 Bi-pap 08/24/18 08:00 35 Intake and Output 08/24/18 08/25/18 19:00 07:00 Intake Total 1272.5 ml 1130.000 ml Output Total 3400 ml 1350 ml Balance -2127.5 ml -220.000 ml Intake Free Water 100 ml 120 ml IV Total 392.5 ml 360.000 ml Tube Feeding 780 ml 650 ml Output Urine Total 3400 ml 1350 ml # Bowel Movements 2 2 Laboratory Tests 08/24/18 10:28: Arterial Blood pH [Pending], Arterial Blood Partial Pressure CO2 [Pending], Arterial Blood Partial Pressure O2 [Pending], Arterial Blood HCO3 [Pending], Arterial Blood Oxygen Saturation [Pending], Arterial Blood Base Excess [Pending] , Shawn Test [Pending] 08/24/18 11:00: White Blood Count 10.8, Red Blood Count 3.92L, Hemoglobin 11.8#L, Hematocrit 36.7#L, Mean Corpuscular Volume 94, Mean Corpuscular Hemoglobin 30.0, Mean Corpuscular Hemoglobin Concent 32.0, Red Cell Distribution Width 14.7, Platelet Count 252, Mean Platelet Volume 6.4L, Neutrophils (%) (Auto) 78.7H, Lymphocytes (%) (Auto) 10.9L, Monocytes (%) (Auto) 5.7, Eosinophils (%) (Auto) 4.2H, Basophils (%) (Auto) 0.6, Erythrocyte Sedimentation Rate 47H, Sodium Level 142, Potassium Level 3.7, Chloride Level 109H, Carbon Dioxide Level 22, Anion Gap 11 , Blood Urea Nitrogen 32H, Creatinine 0.6, Estimat Glomerular Filtration Rate , Glucose Level 216H, Calcium Level 8.0L, Total Bilirubin 0.3, Aspartate Amino Transf (AST/SGOT) 20, Alanine Aminotransferase (ALT/SGPT) 16, Alkaline Phosphatase 94, Troponin I 0.058H, C-Reactive Protein, Quantitative 17.2H, Pro-B -Type Natriuretic Peptide [id number], Total Protein 6.4, Albumin 1.3L, Globulin 5.1 , Albumin/Globulin Ratio 0.3L 08/25/18 06:18: White Blood Count 15.9H, Red Blood Count 3.35L, Hemoglobin 10.2L, Hematocrit 30.9L, Mean Corpuscular Volume 92, Mean Corpuscular Hemoglobin 30.3, Mean Corpuscular Hemoglobin Concent 32.9, Red Cell Distribution Width 14.1, Platelet Count 237, Mean Platelet Volume 6.4L, Neutrophils (%) (Auto) , Lymphocytes (%) ( Auto) , Monocytes (%) (Auto) , Eosinophils (%) (Auto) , Basophils (%) (Auto) , Sodium Level [Pending], Potassium Level [Pending], Chloride Level [Pending], Carbon Dioxide Level [Pending], Blood Urea Nitrogen [Pending], Creatinine [ Pending], Estimat Glomerular Filtration Rate [Pending], Glucose Level [Pending] , Calcium Level [Pending], Total Bilirubin [Pending], Aspartate Amino Transf ( AST/SGOT) [Pending], Alanine Aminotransferase (ALT/SGPT) [Pending], Alkaline Phosphatase [Pending], Pro-B-Type Natriuretic Peptide [Pending], Total Protein [ Pending], Albumin [Pending], Globulin [Pending], Neutrophils % (Manual) [Pending ], Lymphocytes % (Manual) [Pending], Platelet Estimate [Pending], Platelet Morphology [Pending], Magnesium Level [Pending] Height (Feet): 5 Height (Inches): 6.00 Weight (Pounds): 145 Objective General Appearance: WD/WN, alert Neck: supple Cardiovascular: normal rate, regular rhythm Respiratory/Chest: chest wall non-tender, lungs clear, normal breath sounds Abdomen: normal bowel sounds, non tender, soft, no organomegaly Neurologic: unresponsive, aphasia Michael Zuniga MD Aug 25, 2018 07:54
[2018-08-25 08:00] VITALS: BP 122/78
[2018-08-25 08:19] LABS: ALANINE AMINOTRANSFERASE 14 U/L (12-78); ALBUMIN 1.2 G/DL (3.4-5.0); ALBUMIN/GLOBULIN RATIO 0.3 (1.0-2.7); ALKALINE PHOSPHATASE 94 U/L (46-116); ANION GAP 9 mmol/L (5-15); ASPARTATE AMINO TRANSFERASE 14 U/L (15-37); BILIRUBIN,TOTAL 0.2 MG/DL (0.2-1.0); BLOOD UREA NITROGEN 28 mg/dL (7-18); CALCIUM 7.8 MG/DL (8.5-10.1); CARBON DIOXIDE 24 MMOL/L (21-32); CHLORIDE 109 MMOL/L (98-107); CREATININE 0.7 MG/DL (0.55-1.30); POTASSIUM 3.2 MMOL/L (3.5-5.1); SODIUM 142 MMOL/L (136-145)
[2018-08-25] MEDS: Aspirin Baby 81mg GT SCH (09:55)
[2018-08-25] MEDS: Heparin 5000 units/ml inj SUBQ SCH ×2 (09:58→21:17)
--- NOTE | 2018-08-25 10:01 | Progress Note ---
DATE: 08/24/2018 CARDIOLOGY PROGRESS NOTE SUBJECTIVE: The patient's blood pressure stabilized. He is on maintenance hydration and nutrition by feeding tube. Suprapubic catheter was replaced and Podiatry evaluation appreciated. OBJECTIVE: VITAL SIGNS: Blood pressure 151/94, pulse 89, respiratory rate 24, afebrile. Monitored rhythm sinus. LUNGS: Coarse breath sounds. Few rhonchi. HEART: Regular rhythm rate. Normal S1, S2 with a fourth heart sound. ABDOMEN: Soft. EXTREMITIES: With no edema. Right second toe with drainage. LABORATORY DATA: White count 10.8, hemoglobin 11.8. Potassium 3.7, BUN 32, creatinine 0.6. Pro-natriuretic peptide over 10,000. Albumin 1.3. IMPRESSION: 1. Sepsis with recovered shock. 2. Hypovolemia, corrected. 3. Hypertension now with rising blood pressure trend. 4. Possible osteomyelitis, right foot with cellulitis noted. 5. Healthcare-acquired pneumonia. 6. Urinary tract infection due to suprapubic catheter. 7. Cerebrovascular disease with dementia. 8. Dysphagia with G-tube. 9. Acute on chronic diastolic congestive heart failure. 10. Severe protein-calorie malnutrition. PLAN: 1. Antimicrobials. 2. Noninvasive vascular studies and imaging studies of the right leg. 3. Respiratory hygiene. 4. Adjust antimicrobials based on clinical parameters. 5. Titrate antihypertensives based on clinical parameters. 6. DVT prophylaxis. 7. Nutrition by feeding tube. 8. No diuresis presently indicated. Bryon Ramirez M.D. DR: Josué JOB#: [id number] CC:
--- NOTE | 2018-08-25 10:58 | Infectious Diseases Prog Note ---
Assessment/Plan Assessment/Plan antibiotics : vancomycin iv, zosyn A 1. providencia UTI 2. pneumonia 3. leucocytosis 4. diabetes mellitus 5. hypertension 6. dementia p 1. continue zosyn 2. d/c iv vancomycin 3. stool for c.diff 4. start flagyl 5. will follow up cultures Subjective ROS Limited/Unobtainable: Yes Allergies: Coded Allergies: No Known Allergies (Unverified , 06/17/18) Objective Vital Signs Last 24 Hour Vital Signs Date Time Temp Pulse Resp B/P (MAP) Pulse Ox O2 Delivery O2 Flow Rate FiO2 08/25/18 08:32 83 08/25/18 08:00 Bi-pap 08/25/18 08:00 98.5 90 20 122/78 (93) 100 98.5 08/25/18 07:45 Nasal Cannula 4.0 36 08/25/18 07:45 98 Nasal Cannula 4.0 36 08/25/18 05:10 80 27 98 Facial 35 08/25/18 04:22 91 08/25/18 04:00 Bi-pap 08/25/18 04:00 98.5 95 35 147/80 (102) 98 98.5 08/25/18 04:00 35 08/25/18 03:05 78 36 98 Facial 35 08/25/18 01:06 70 27 97 Facial 35 08/25/18 00:09 91 08/25/18 00:00 97.6 77 34 167/90 (115) 97 97.6 08/25/18 00:00 Bi-pap 08/24/18 22:51 95 31 97 Facial 35 08/24/18 20:00 4.0 08/24/18 20:00 97.6 71 24 163/100 (121) 97 97.6 08/24/18 20:00 Bi-pap 08/24/18 19:05 89 08/24/18 19:04 Nasal Cannula 4.0 36 08/24/18 19:04 96 Nasal Cannula 4.0 36 08/24/18 17:04 91 08/24/18 16:00 97.5 95 18 145/62 (89) 100 97.5 08/24/18 16:00 Bi-pap 08/24/18 16:00 4.0 08/24/18 15:26 74 22 100 Nasal Cannula 4.0 36 08/24/18 15:18 78 20 98 Nasal Cannula 4.0 36 08/24/18 14:25 88 08/24/18 13:15 74 19 96 Facial 35 08/24/18 12:00 35 08/24/18 12:00 Bi-pap 08/24/18 12:00 97.5 95 22 135/94 (108) 100 97.5 Height (Feet): 5 Height (Inches): 6.00 Weight (Pounds): 145 Respiratory/Chest: lungs clear Cardiovascular: normal rate, regular rhythm, no gallop/murmur Abdomen: soft, non tender, other - GT Extremities: no edema Microbiology Date/Time Source Procedure Growth Status 08/23/18 18:45 Wound Gram Stain - Final Resulted 08/23/18 18:45 Wound Wound Culture Pending Resulted 08/23/18 11:30 Sputum Gram Stain - Final Complete 08/23/18 11:30 Sputum Sputum Culture - Final NORMAL UPPER RESPIRATORY THEO PRESENT Complete Laboratory Tests Test 08/24/18 11:00 08/25/18 06:18 08/25/18 10:22 White Blood Count 10.8 K/UL (4.8-10.8) 15.9 K/UL (4.8-10.8) H Red Blood Count 3.92 M/UL (4.70-6.10) L 3.35 M/UL (4.70-6.10) L Hemoglobin 11.8 G/DL (14.2-18.0) #L 10.2 G/DL (14.2-18.0) L Hematocrit 36.7 % (42.0-52.0) #L 30.9 % (42.0-52.0) L Mean Corpuscular Volume 94 FL (80-99) 92 FL (80-99) Mean Corpuscular Hemoglobin 30.0 PG (27.0-31.0) 30.3 PG (27.0-31.0) Mean Corpuscular Hemoglobin Concent 32.0 G/DL (32.0-36.0) 32.9 G/DL (32.0-36.0) Red Cell Distribution Width 14.7 % (11.6-14.8) 14.1 % (11.6-14.8) Platelet Count 252 K/UL (150-450) 237 K/UL (150-450) Mean Platelet Volume 6.4 FL (6.5-10.1) L 6.4 FL (6.5-10.1) L Neutrophils (%) (Auto) 78.7 % (45.0-75.0) H % (45.0-75.0) Lymphocytes (%) (Auto) 10.9 % (20.0-45.0) L % (20.0-45.0) Monocytes (%) (Auto) 5.7 % (1.0-10.0) % (1.0-10.0) Eosinophils (%) (Auto) 4.2 % (0.0-3.0) H % (0.0-3.0) Basophils (%) (Auto) 0.6 % (0.0-2.0) % (0.0-2.0) Erythrocyte Sedimentation Rate 47 MM/HR (0-20) H Sodium Level 142 MMOL/L (136-145) 142 MMOL/L (136-145) Potassium Level 3.7 MMOL/L (3.5-5.1) 3.2 MMOL/L (3.5-5.1) L Chloride Level 109 MMOL/L (98-107) H 109 MMOL/L (98-107) H Carbon Dioxide Level 22 MMOL/L (21-32) 24 MMOL/L (21-32) Anion Gap 11 mmol/L (5-15) 9 mmol/L (5-15) Blood Urea Nitrogen 32 mg/dL (7-18) H 28 mg/dL (7-18) H Creatinine 0.6 MG/DL (0.55-1.30) 0.7 MG/DL (0.55-1.30) Estimat Glomerular Filtration Rate mL/min (>60) mL/min (>60) Glucose Level 216 MG/DL (74-106) H 258 MG/DL (74-106) H Calcium Level 8.0 MG/DL (8.5-10.1) L 7.8 MG/DL (8.5-10.1) L Total Bilirubin 0.3 MG/DL (0.2-1.0) 0.2 MG/DL (0.2-1.0) Aspartate Amino Transf (AST/SGOT) 20 U/L (15-37) 14 U/L (15-37) L Alanine Aminotransferase (ALT/SGPT) 16 U/L (12-78) 14 U/L (12-78) Alkaline Phosphatase 94 U/L (46-116) 94 U/L (46-116) Troponin I 0.058 ng/mL (0.000-0.056) C-Reactive Protein, Quantitative 17.2 mg/dL (0.00-0.90) H Pro-B-Type Natriuretic Peptide 43547 pg/mL (0-125) H 12983 pg/mL (0-125) H Total Protein 6.4 G/DL (6.4-8.2) 5.9 G/DL (6.4-8.2) L Albumin 1.3 G/DL (3.4-5.0) L 1.2 G/DL (3.4-5.0) L Globulin 5.1 g/dL 4.7 g/dL Albumin/Globulin Ratio 0.3 (1.0-2.7) L 0.3 (1.0-2.7) L Differential Total Cells Counted 100 Neutrophils % (Manual) 86 % (45-75) H Lymphocytes % (Manual) 6 % (20-45) L Monocytes % (Manual) 7 % (1-10) Eosinophils % (Manual) 1 % (0-3) Basophils % (Manual) 0 % (0-2) Band Neutrophils 0 % (0-8) Platelet Estimate Adequate Platelet Morphology Normal Hypochromasia 1+ Anisocytosis 1+ Spherocytes 1+ Magnesium Level 1.5 MG/DL (1.8-2.4) L Arterial Blood pH 7.475 (7.350-7.450) Arterial Blood Partial Pressure CO2 31.4 mmHg (35.0-45.0) L Arterial Blood Partial Pressure O2 100.7 mmHg (75.0-100.0) H Arterial Blood HCO3 22.6 mmol/L (22.0-26.0) Arterial Blood Oxygen Saturation 97.4 % (95-100) Arterial Blood Base Excess -0.5 (-2-2) Shawn Test Positive Current Medications Medications (Trade) Dose Ordered Sig/Benjamin Route PRN Reason Start Time Stop Time Status Last Admin Dose Admin Albuterol/ Ipratropium (Albuterol/ Ipratropium) 3 ml Q6HRT PRN HHN Bronchospasm 08/24/18 09:45 08/29/18 09:44 08/24/18 15:18 Aspirin (ASA) 81 mg DAILY GT 08/23/18 09:00 09/22/18 08:59 08/25/18 09:55 Dextrose (Dextrose 50%) 25 ml Q30M PRN IV Hypoglycemia 08/21/18 20:00 09/20/18 19:59 Dextrose (Dextrose 50%) 50 ml Q30M PRN IV Hypoglycemia 08/21/18 20:00 09/20/18 19:59 Heparin Sodium (Porcine) (Heparin 5000 units/ml) 5,000 units EVERY 12 HOURS SUBQ 08/21/18 21:00 09/20/18 20:59 08/25/18 09:58 Insulin Aspart (NovoLOG) EVERY 6 HOURS SUBQ 08/23/18 12:00 09/22/18 11:59 08/25/18 06:31 Lansoprazole (Prevacid) 30 mg DAILY GT 08/25/18 09:00 09/24/18 08:59 08/25/18 09:55 Levothyroxine Sodium (Synthroid) 125 mcg DAILY@0630 ORAL 08/24/18 06:30 09/23/18 06:29 08/25/18 06:30 Piperacillin Sod/ Tazobactam Sod 3.375 gm/Dextrose 110 ml @ 27.5 mls/hr EVERY 8 HOURS IVPB 08/21/18 22:00 08/26/18 21:59 08/25/18 06:30 Vancomycin HCl (Vanco rx to dose) 1 ea DAILY PRN MISC Per rx protocol 08/21/18 20:00 09/20/18 19:59 Vancomycin/Sodium Chloride 250 ml @ 166.667 mls/hr Q12H IVPB 08/22/18 03:00 08/27/18 02:59 08/25/18 03:35 FAZAL PORRAS Aug 25, 2018 10:58
--- NOTE | 2018-08-25 11:01 | Diagnostic Imaging Report ---
Indication: Foot Pain Comparison: None Findings: 3 views of the right foot were obtained. Bones are severely osteopenic which limits evaluation for subtle injury. The second toe is not adequately visualized due to an apparent deformity involving the distal phalange. Injury involving this area is on not excludable. No obvious acute fracture is identified. There is extensive vascular calcification. No soft tissue air or obvious erosion or periostitis appreciated. IMPRESSION: No acute findings appreciated. Limited evaluation as discussed above
[2018-08-25 12:00] VITALS: BP 145/76
[2018-08-25] MEDS: metroNIDAZOLE 500mg tab ORAL SCH ×2 (13:14→21:15)
--- NOTE | 2018-08-25 14:42 | Urology Progress Note ---
Assessment/Plan Assessment/Plan 1. Urinary retention with chronic suprapubic tube. 2. Benign prostatic hypertrophy history. 3. Neurogenic bladder. 4. Urinary tract infection and colonization. 5. Hematuria. 6. Proteinuria. keep SP tube, last exchanged 08/23 hand irrigate PRN cont with abx as ordered cysto later f/u on blood cx Subjective Allergies: Coded Allergies: No Known Allergies (Unverified , 06/17/18) Subjective all noted, looks comfortable Objective Last 24 Hour Vital Signs Date Time Temp Pulse Resp B/P (MAP) Pulse Ox O2 Delivery O2 Flow Rate FiO2 08/25/18 12:00 98.7 92 19 145/76 (99) 96 98.7 08/25/18 12:00 Bi-pap 08/25/18 11:44 88 08/25/18 08:32 83 08/25/18 08:00 Bi-pap 08/25/18 08:00 98.5 90 20 122/78 (93) 100 98.5 08/25/18 07:45 Nasal Cannula 4.0 36 08/25/18 07:45 98 Nasal Cannula 4.0 36 08/25/18 05:10 80 27 98 Facial 35 08/25/18 04:22 91 08/25/18 04:00 Bi-pap 08/25/18 04:00 98.5 95 35 147/80 (102) 98 98.5 08/25/18 04:00 35 08/25/18 03:05 78 36 98 Facial 35 08/25/18 01:06 70 27 97 Facial 35 08/25/18 00:09 91 08/25/18 00:00 97.6 77 34 167/90 (115) 97 97.6 08/25/18 00:00 Bi-pap 08/24/18 22:51 95 31 97 Facial 35 08/24/18 20:00 4.0 08/24/18 20:00 97.6 71 24 163/100 (121) 97 97.6 08/24/18 20:00 Bi-pap 08/24/18 19:05 89 08/24/18 19:04 Nasal Cannula 4.0 36 08/24/18 19:04 96 Nasal Cannula 4.0 36 08/24/18 17:04 91 08/24/18 16:00 97.5 95 18 145/62 (89) 100 97.5 08/24/18 16:00 Bi-pap 08/24/18 16:00 4.0 08/24/18 15:26 74 22 100 Nasal Cannula 4.0 36 08/24/18 15:18 78 20 98 Nasal Cannula 4.0 36 Intake and Output 08/24/18 08/25/18 19:00 07:00 Intake Total 1272.5 ml 1143.750 ml Output Total 3400 ml 1350 ml Balance -2127.5 ml -206.250 ml Intake Free Water 100 ml 120 ml IV Total 392.5 ml 373.750 ml Tube Feeding 780 ml 650 ml Output Urine Total 3400 ml 1350 ml # Bowel Movements 2 2 Microbiology Date/Time Source Procedure Growth Status 08/21/18 15:15 Blood Blood Culture - Preliminary NO GROWTH AFTER 72 HOURS Resulted 08/23/18 18:45 Wound Gram Stain - Final Resulted 08/23/18 18:45 Wound Culture - Preliminary Staphylococcus Aureus Resulted 08/23/18 11:30 Sputum Gram Stain - Final Complete 08/23/18 11:30 Sputum Sputum Culture - Final NORMAL UPPER RESPIRATORY THEO PRESENT Complete 08/21/18 15:15 Urine,Clean Catch Urine Culture - Final Providencia Stuartii Complete 08/21/18 17:07 Rectum - Final NO CARBAPENEM-RESISTANT ENTEROBACTERI... Complete Current Medications Medications (Trade) Dose Ordered Sig/Benjamin Route PRN Reason Start Time Stop Time Status Last Admin Dose Admin Albuterol/ Ipratropium (Albuterol/ Ipratropium) 3 ml Q6HRT PRN HHN Bronchospasm 08/24/18 09:45 08/29/18 09:44 08/24/18 15:18 Aspirin (ASA) 81 mg DAILY GT 08/23/18 09:00 09/22/18 08:59 08/25/18 09:55 Dextrose (Dextrose 50%) 25 ml Q30M PRN IV Hypoglycemia 08/21/18 20:00 09/20/18 19:59 Dextrose (Dextrose 50%) 50 ml Q30M PRN IV Hypoglycemia 08/21/18 20:00 09/20/18 19:59 Heparin Sodium (Porcine) (Heparin 5000 units/ml) 5,000 units EVERY 12 HOURS SUBQ 08/21/18 21:00 09/20/18 20:59 08/25/18 09:58 Insulin Aspart (NovoLOG) EVERY 6 HOURS SUBQ 08/23/18 12:00 09/22/18 11:59 08/25/18 13:16 Lansoprazole (Prevacid) 30 mg DAILY GT 08/25/18 09:00 09/24/18 08:59 08/25/18 09:55 Levothyroxine Sodium (Synthroid) 125 mcg DAILY@0630 ORAL 08/24/18 06:30 09/23/18 06:29 08/25/18 06:30 Metronidazole (Flagyl) 500 mg Q8HR ORAL 08/25/18 14:00 09/01/18 13:59 08/25/18 13:14 Piperacillin Sod/ Tazobactam Sod 3.375 gm/Dextrose 110 ml @ 27.5 mls/hr EVERY 8 HOURS IVPB 08/25/18 14:00 08/30/18 13:59 08/25/18 13:15 Laboratory Tests 08/25/18 06:18: White Blood Count 15.9H, Red Blood Count 3.35L, Hemoglobin 10.2L, Hematocrit 30.9L, Mean Corpuscular Volume 92, Mean Corpuscular Hemoglobin 30.3, Mean Corpuscular Hemoglobin Concent 32.9, Red Cell Distribution Width 14.1, Platelet Count 237, Mean Platelet Volume 6.4L, Neutrophils (%) (Auto) , Lymphocytes (%) ( Auto) , Monocytes (%) (Auto) , Eosinophils (%) (Auto) , Basophils (%) (Auto) , Differential Total Cells Counted 100, Neutrophils % (Manual) 86H, Lymphocytes % (Manual) 6L, Monocytes % (Manual) 7, Eosinophils % (Manual) 1, Basophils % ( Manual) 0, Band Neutrophils 0, Platelet Estimate Adequate, Platelet Morphology Normal, Hypochromasia 1+, Anisocytosis 1+, Spherocytes 1+, Sodium Level 142, Potassium Level 3.2L, Chloride Level 109H, Carbon Dioxide Level 24, Anion Gap 9 , Blood Urea Nitrogen 28H, Creatinine 0.7, Estimat Glomerular Filtration Rate , Glucose Level 258H, Calcium Level 7.8L, Magnesium Level 1.5L, Total Bilirubin 0.2, Aspartate Amino Transf (AST/SGOT) 14L, Alanine Aminotransferase (ALT/SGPT) 14, Alkaline Phosphatase 94, Pro-B-Type Natriuretic Peptide 56352N, Total Protein 5.9L, Albumin 1.2L, Globulin 4.7, Albumin/Globulin Ratio 0.3L 08/25/18 10:22: Arterial Blood pH 7.475H, Arterial Blood Partial Pressure CO2 31.4L, Arterial Blood Partial Pressure O2 100.7H, Arterial Blood HCO3 22.6, Arterial Blood Oxygen Saturation 97.4, Arterial Blood Base Excess -0.5, Shawn Test Positive Height (Feet): 5 Height (Inches): 6.00 Weight (Pounds): 145 Objective exam stable, urine clearing ALEJANDRO COLLIER Aug 25, 2018 14:42
[2018-08-25 16:00] VITALS: BP 158/75
--- NOTE | 2018-08-25 17:30 | Consultation ---
DATE OF CONSULTATION: 08/25/2018 PULMONARY CONSULTATION REASON FOR CONSULTATION: Respiratory failure, pneumonia, BiPAP management. HISTORY OF PRESENT ILLNESS: This is an 83-year-old male who presents from long-term facility. The patient has baseline dementia. The patient is a Do Not Resuscitate. He was found to be altered, withdrawn, lethargic, in respiratory failure with significant hypoxemia. The patient seen and evaluated, transferred to the [facility]. The patient placed on BiPAP overnight and presently did well off of BiPAP. No significant distress, mild congestion. The patient basically admitted for sepsis. In the emergency room, the patient was given IV antibiotics and pancultured and admitted for further care and management. The patient care discussed and reviewed. penitentiary chart reviewed. The care discussed with RN and RT. PAST MEDICAL HISTORY: Dysphagia, G-tube, CVA, diabetes, hypertensive heart disease, coronary artery disease, seizure disorder. ALLERGIES: Reviewed. MEDICATIONS: Reviewed and reconciled. FAMILY HISTORY: Unknown. SOCIAL HISTORY: Nonsmoker and nondrinker. The patient is a retirement resident. The patient is Do Not Resuscitate. REVIEW OF SYSTEMS: Unobtainable. PHYSICAL EXAMINATION: VITAL SIGNS: Temperature 98.5, pulse 90, respiratory rate 20, blood pressure 122/78, O2 saturation 98%. The patient is currently on 4 liters nasal cannula. GENERAL: Ill-appearing male, withdrawn, nonverbal. In general, the patient is with reduced level of consciousness. LUNGS: With scattered rhonchi, moderate air entry, symmetric. CARDIAC: Normal S1, S2. Slightly tachycardic without murmurs, rubs, or gallops. ABDOMEN: Soft, nontender, nondistended. EXTREMITIES: No cyanosis or clubbing. SKIN: Turgor is reduced. GENITOURINARY: The patient has suprapubic catheter. NEUROLOGIC: Neurologically withdrawn but does respond to painful stimuli. LABORATORY AND DIAGNOSTIC DATA: X-ray with evidence of pneumonia. Cultures are notable for urine culture with Providencia. IMPRESSION: 1. Respiratory failure, acute, now currently off BiPAP. 2. Sepsis with shock. 3. Dysphagia. 4. G-tube. 5. CVA. 6. Altered mental status. 7. Aspiration pneumonia, likely acute on chronic congestive heart failure. 8. Severe protein-calorie malnutrition. 9. Diabetes. RECOMMENDATIONS: 1. Supportive care. 2. IV antibiotics. 3. Respiratory care. 4. BiPAP off and follow up arterial blood gases. 5. The patient's acid-base status should to be monitored closely. The patient is however Do Not Resuscitate, taper oxygen, respiratory therapy, and taper antibiotics as able. 6. We we will follow clinically for further changes in interventions and provide ongoing care and management, pending re-evaluation. 7. We will also continue with DVT prophylaxis for now. James Langston M.D. DR: Luda JOB#: [id number] CC:
[2018-08-25 20:00] VITALS: BP 137/71
[2018-08-26] VITALS: BP 116/67
[2018-08-26] MEDS: NovoLOG Insulin Flexpen SUBQ SCH ×4 (01:01→17:23)
[2018-08-26 04:00] VITALS: BP 146/76
--- NOTE | 2018-08-26 04:15 | Progress Note ---
DATE: 08/25/2018 CARDIOLOGY PROGRESS NOTE SUBJECTIVE: The patient remains on BiPAP support. He is poorly responsive. He continues to have moderate secretions. Blood pressure parameters remain stable. OBJECTIVE: VITAL SIGNS: Blood pressure 137/71, pulse 90, respiratory rate 28, and afebrile. Monitored rhythm sinus with occasional atrial ectopy. LUNGS: Coarse breath sounds. Scattered rhonchi. HEART: Regular rhythm and rate. Normal S1 and S2. ABDOMEN: Soft. G-tube intact. Suprapubic catheter noted. EXTREMITIES: No edema. LABORATORY DATA: White count is 15.9 and hemoglobin 10.2. Sodium 142, potassium 3.2, BUN 28, and creatinine 0.7. Magnesium 1.5. Albumin 1.2. Pro-natriuretic peptide . ABG - 7.47, 31, and 100. X-ray of the foot revealed no acute findings. IMPRESSION: 1. Sepsis. 2. Neurogenic bladder. 3. Urinary retention with suprapubic catheter. 4. Pneumonia. 5. Respiratory failure. 6. Acute on chronic diastolic congestive heart failure. 7. Acute myocardial infarction. 8. Dementia with dysphagia, on G-tube. PLAN: 1. Respiratory support . BiPAP as needed. Antimicrobials with respiratory hygiene. 2. Diuresis as needed based on clinical parameters. 3. Nutrition by feeding tube. 4. DVT and stress ulcer prophylaxis. 5. Replace potassium and magnesium. 6. DNR per advanced directives. Bryon Ramirez M.D. DR: CHAN JOB#: [id number] CC:
[2018-08-26] MEDS: Piperacillin/Tazobactam 3.375 GM in D5W 110 ML IVPB SCH ×3 (06:23→21:35)
[2018-08-26] MEDS: metroNIDAZOLE 500mg tab ORAL SCH ×3 (06:23→21:34)
[2018-08-26] MEDS: Levothyroxine 125mcg tab ORAL SCH (06:41)
--- NOTE | 2018-08-26 06:52 | General Progress Note ---
Assessment/Plan Problem List: (1) UTI (urinary tract infection) ICD Codes: N39.0 - Urinary tract infection, site not specified SNOMED: 38874258 Qualifiers: Qualified Codes: T83.511A - Infection and inflammatory reaction due to indwelling urethral catheter, initial encounter; N39.0 - Urinary tract infection , site not specified (2) Severe sepsis ICD Codes: A41.9 - Sepsis, unspecified organism; R65.20 - Severe sepsis without septic shock SNOMED: 98115286 (3) NSTEMI (non-ST elevated myocardial infarction) ICD Codes: I21.4 - Non-ST elevation (NSTEMI) myocardial infarction SNOMED: 842452887 (4) Right lower lobe pneumonia ICD Codes: J18.1 - Lobar pneumonia, unspecified organism SNOMED: 513799737 Qualifiers: Qualified Codes: J18.1 - Lobar pneumonia, unspecified organism (5) Elevated lactic acid level ICD Codes: R79.89 - Other specified abnormal findings of blood chemistry SNOMED: 3581973 Status: stable, progressing Assessment/Plan iv abx follow up cultures bipap as needed resp rx pulm eval appreciated gt feeds follow up am labs duplex legs dvt/stress ulcer prophlaxis skin care Subjective ROS Limited/Unobtainable: No Constitutional: Reports: malaise, weakness HEENT: Reports: no symptoms Cardiovascular: Reports: no symptoms Respiratory: Reports: cough, shortness of breath, sputum Gastrointestinal/Abdominal: Reports: difficulty swallowing Genitourinary: Reports: no symptoms Neurologic/Psychiatric: Reports: pre-existing deficit Endocrine: Reports: no symptoms Hematologic/Lymphatic: Reports: anemia Allergies: Coded Allergies: No Known Allergies (Unverified , 06/17/18) All Systems: reviewed and negative except above Subjective off bipap for few hours. no complaints. more alert. "I'm fine." no overnight events per night RN. LE arterial duplex with minimal ischemia. xray foot no osteo Objective Last 24 Hour Vital Signs Date Time Temp Pulse Resp B/P (MAP) Pulse Ox O2 Delivery O2 Flow Rate FiO2 08/26/18 04:30 85 32 97 Full Face 35 08/26/18 04:00 97.3 91 18 146/76 (99) 98 97.3 08/26/18 03:18 84 26 98 Facial 35 08/26/18 01:30 87 24 98 Facial 35 10/5/18 00:00 97.5 84 18 116/67 (83) 98 97.5 08/25/18 22:40 75 32 97 Facial 35 08/25/18 20:26 94 08/25/18 20:00 Bi-pap 08/25/18 20:00 97.0 90 20 137/71 (93) 98 97.0 08/25/18 19:20 Nasal Cannula 2.0 28 08/25/18 19:19 97 Nasal Cannula 2.0 28 08/25/18 16:00 98.4 81 18 158/75 (102) 100 98.4 08/25/18 16:00 Bi-pap 08/25/18 15:33 77 08/25/18 12:00 98.7 92 19 145/76 (99) 96 98.7 08/25/18 12:00 Bi-pap 08/25/18 11:44 88 08/25/18 08:32 83 08/25/18 08:00 Bi-pap 08/25/18 08:00 98.5 90 20 122/78 (93) 100 98.5 08/25/18 07:45 Nasal Cannula 4.0 36 08/25/18 07:45 98 Nasal Cannula 4.0 36 Intake and Output 08/25/18 08/26/18 19:00 07:00 Intake Total 950.0 ml Output Total 1000 ml Balance -50.0 ml IV Total 110.0 ml Tube Feeding 780 ml Other 60 ml Output Urine Total 1000 ml # Bowel Movements 2 Laboratory Tests 08/25/18 10:22: Arterial Blood pH 7.475H, Arterial Blood Partial Pressure CO2 31.4L, Arterial Blood Partial Pressure O2 100.7H, Arterial Blood HCO3 22.6, Arterial Blood Oxygen Saturation 97.4, Arterial Blood Base Excess -0.5, Shawn Test Positive Height (Feet): 5 Height (Inches): 6.00 Weight (Pounds): 145 Objective General Appearance: WD/WN, alert Neck: supple Cardiovascular: normal rate, regular rhythm Respiratory/Chest: chest wall non-tender, lungs with farhat rhonchi Abdomen: normal bowel sounds, non tender, soft, no organomegaly Neurologic: unresponsive, aphasia Michael Zuniga MD Aug 26, 2018 06:52
[2018-08-26 08:00] VITALS: BP 130/75
--- NOTE | 2018-08-26 08:02 | Pulmonology Progress Note ---
Assessment/Plan Assessment/Plan IMPRESSION: 1. Respiratory failure, acute, improved 2. Sepsis with shock. 3. Dysphagia. 4. G-tube. 5. CVA. 6. Altered mental status. 7. Aspiration pneumonia 8. Severe protein-calorie malnutrition. 9. Diabetes. PLAN continue same respiratory care aspiration precautions antibiotics monitor imaging DVT prophylaxis impression, plan, and exam edited and reviewed in detail care discussed with RN Subjective ROS Limited/Unobtainable: Yes Allergies: Coded Allergies: No Known Allergies (Unverified , 06/17/18) Subjective reviewed care moved to tele off BIPAP Objective Last 24 Hour Vital Signs Date Time Temp Pulse Resp B/P (MAP) Pulse Ox O2 Delivery O2 Flow Rate FiO2 08/26/18 04:30 85 32 97 Full Face 35 08/26/18 04:00 89 08/26/18 04:00 97.3 91 18 146/76 (99) 98 97.3 08/26/18 03:18 84 26 98 Facial 35 08/26/18 01:30 87 24 98 Facial 35 08/26/18 00:00 97.5 84 18 116/67 (83) 98 97.5 08/26/18 00:00 85 08/25/18 22:40 75 32 97 Facial 35 08/25/18 20:26 94 08/25/18 20:00 Bi-pap 08/25/18 20:00 97.0 90 20 137/71 (93) 98 97.0 08/25/18 19:20 Nasal Cannula 2.0 28 08/25/18 19:19 97 Nasal Cannula 2.0 28 08/25/18 16:00 98.4 81 18 158/75 (102) 100 98.4 08/25/18 16:00 Bi-pap 08/25/18 15:33 77 08/25/18 12:00 98.7 92 19 145/76 (99) 96 98.7 08/25/18 12:00 Bi-pap 08/25/18 11:44 88 08/25/18 08:32 83 Intake and Output 08/25/18 08/26/18 19:00 07:00 Intake Total 950.0 ml 65 ml Output Total 1000 ml 800 ml Balance -50.0 ml -735 ml IV Total 110.0 ml Tube Feeding 780 ml 65 ml Other 60 ml Output Urine Total 1000 ml 800 ml # Bowel Movements 2 1 Objective GENERAL: Ill-appearing male, withdrawn, nonverbal. reduced LOC LUNGS: With some rhonchi, moderate air entry, symmetric. CARDIAC: Normal S1, S2. Slightly tachycardic without murmurs, rubs, or gallops. ABDOMEN: Soft, nontender, nondistended. no distention EXTREMITIES: No cyanosis or clubbing. SKIN: noted GENITOURINARY: The patient has suprapubic catheter. NEUROLOGIC: Neurologically withdrawn but does respond to painful stimuli. Microbiology Date/Time Source Procedure Growth Status 08/23/18 18:45 Wound Gram Stain - Final Resulted 08/23/18 18:45 Wound Culture - Preliminary Staphylococcus Aureus Resulted 08/23/18 11:30 Sputum Gram Stain - Final Complete 08/23/18 11:30 Sputum Sputum Culture - Final NORMAL UPPER RESPIRATORY THEO PRESENT Complete Laboratory Tests 08/25/18 10:22: Arterial Blood pH 7.475H, Arterial Blood Partial Pressure CO2 31.4L, Arterial Blood Partial Pressure O2 100.7H, Arterial Blood HCO3 22.6, Arterial Blood Oxygen Saturation 97.4, Arterial Blood Base Excess -0.5, Shawn Test Positive 08/26/18 06:45: White Blood Count [Pending], Red Blood Count [Pending], Hemoglobin [Pending], Hematocrit [Pending], Mean Corpuscular Volume [Pending], Mean Corpuscular Hemoglobin [Pending], Mean Corpuscular Hemoglobin Concent [Pending], Red Cell Distribution Width [Pending], Platelet Count [Pending], Mean Platelet Volume [ Pending], Neutrophils (%) (Auto) [Pending], Lymphocytes (%) (Auto) [Pending], Monocytes (%) (Auto) [Pending], Eosinophils (%) (Auto) [Pending], Basophils (%) (Auto) [Pending], Sodium Level [Pending], Potassium Level [Pending], Chloride Level [Pending], Carbon Dioxide Level [Pending], Blood Urea Nitrogen [Pending], Creatinine [Pending], Estimat Glomerular Filtration Rate [Pending], Glucose Level [Pending], Calcium Level [Pending], Total Bilirubin [Pending], Aspartate Amino Transf (AST/SGOT) [Pending], Alanine Aminotransferase (ALT/SGPT) [Pending] , Alkaline Phosphatase [Pending], Total Protein [Pending], Albumin [Pending], Globulin [Pending] Current Medications Medications (Trade) Dose Ordered Sig/Benjamin Route PRN Reason Start Time Stop Time Status Last Admin Dose Admin Albuterol/ Ipratropium (Albuterol/ Ipratropium) 3 ml Q6HRT PRN HHN Bronchospasm 08/24/18 09:45 08/29/18 09:44 08/24/18 15:18 Aspirin (ASA) 81 mg DAILY GT 08/23/18 09:00 09/22/18 08:59 08/25/18 09:55 Dextrose (Dextrose 50%) 25 ml Q30M PRN IV Hypoglycemia 08/21/18 20:00 09/20/18 19:59 Dextrose (Dextrose 50%) 50 ml Q30M PRN IV Hypoglycemia 08/21/18 20:00 09/20/18 19:59 Heparin Sodium (Porcine) (Heparin 5000 units/ml) 5,000 units EVERY 12 HOURS SUBQ 08/21/18 21:00 09/20/18 20:59 08/25/18 21:17 Insulin Aspart (NovoLOG) EVERY 6 HOURS SUBQ 08/23/18 12:00 09/22/18 11:59 08/26/18 06:23 Lansoprazole (Prevacid) 30 mg DAILY GT 08/25/18 09:00 09/24/18 08:59 08/25/18 09:55 Levothyroxine Sodium (Synthroid) 125 mcg DAILY@0630 ORAL 08/24/18 06:30 09/23/18 06:29 08/26/18 06:41 Metronidazole (Flagyl) 500 mg Q8HR ORAL 08/25/18 14:00 09/01/18 13:59 08/26/18 06:23 Piperacillin Sod/ Tazobactam Sod 3.375 gm/Dextrose 110 ml @ 27.5 mls/hr EVERY 8 HOURS IVPB 08/25/18 14:00 08/30/18 13:59 08/26/18 06:23 James Langston MD Aug 26, 2018 08:02
[2018-08-26 08:04] LABS: BASOPHILS % (AUTO) 0.4 % (0.0-2.0); EOSINOPHILS % (AUTO) 3.1 % (0.0-3.0); HEMATOCRIT 30.3 % (42.0-52.0); HEMOGLOBIN 9.8 G/DL (14.2-18.0); LYMPHOCYTES % (AUTO) 6.5 % (20.0-45.0); MEAN CORPUSCULAR VOLUME 93 FL (80-99); MONOCYTES % (AUTO) 5.2 % (1.0-10.0); NEUTROPHILS % (AUTO) 84.9 % (45.0-75.0); PLATELET COUNT 250 K/UL (150-450); RED BLOOD COUNT 3.26 M/UL (4.70-6.10); RED CELL DISTRIBUTION WIDTH 14.4 % (11.6-14.8)
[2018-08-26 08:10] LABS: ALANINE AMINOTRANSFERASE 15 U/L (12-78); ALBUMIN 1.3 G/DL (3.4-5.0); ALBUMIN/GLOBULIN RATIO 0.3 (1.0-2.7); ALKALINE PHOSPHATASE 92 U/L (46-116); ANION GAP 3 mmol/L (5-15); ASPARTATE AMINO TRANSFERASE 17 U/L (15-37); BILIRUBIN,TOTAL 0.5 MG/DL (0.2-1.0); BLOOD UREA NITROGEN 18 mg/dL (7-18); CARBON DIOXIDE 31 MMOL/L (21-32); CHLORIDE 105 MMOL/L (98-107); CREATININE 0.7 MG/DL (0.55-1.30); POTASSIUM 3.5 MMOL/L (3.5-5.1); SODIUM 139 MMOL/L (136-145)
[2018-08-26] MEDS: Aspirin Baby 81mg GT SCH (08:29)
[2018-08-26] MEDS: Heparin 5000 units/ml inj SUBQ SCH ×2 (08:39→21:45)
--- NOTE | 2018-08-26 10:50 | Infectious Diseases Prog Note ---
Assessment/Plan Assessment/Plan antibiotics : zosyn, flagyl A 1. providencia UTI 2. pneumonia 3. leucocytosis improving 4. diabetes mellitus 5. hypertension 6. dementia p 1. continue zosyn, flagyl unitl tomorrow 2. will follow up cultures Subjective ROS Limited/Unobtainable: Yes Allergies: Coded Allergies: No Known Allergies (Unverified , 06/17/18) Objective Vital Signs Last 24 Hour Vital Signs Date Time Temp Pulse Resp B/P (MAP) Pulse Ox O2 Delivery O2 Flow Rate FiO2 08/26/18 09:00 Nasal Cannula 2.0 08/26/18 08:00 97.7 78 20 130/75 (93) 98 97.7 08/26/18 04:30 85 32 97 Full Face 35 08/26/18 04:00 89 08/26/18 04:00 97.3 91 18 146/76 (99) 98 97.3 08/26/18 03:18 84 26 98 Facial 35 08/26/18 01:30 87 24 98 Facial 35 08/26/18 00:00 97.5 84 18 116/67 (83) 98 97.5 08/26/18 00:00 85 08/25/18 22:40 75 32 97 Facial 35 08/25/18 20:26 94 08/25/18 20:00 Bi-pap 08/25/18 20:00 97.0 90 20 137/71 (93) 98 97.0 08/25/18 19:20 Nasal Cannula 2.0 28 08/25/18 19:19 97 Nasal Cannula 2.0 28 08/25/18 16:00 98.4 81 18 158/75 (102) 100 98.4 08/25/18 16:00 Bi-pap 08/25/18 15:33 77 08/25/18 12:00 98.7 92 19 145/76 (99) 96 98.7 08/25/18 12:00 Bi-pap 08/25/18 11:44 88 Height (Feet): 5 Height (Inches): 6.00 Weight (Pounds): 145 Respiratory/Chest: lungs clear Cardiovascular: normal rate, regular rhythm, no gallop/murmur Abdomen: soft, non tender, other - GT Extremities: no edema Microbiology Date/Time Source Procedure Growth Status 08/23/18 18:45 Wound Gram Stain - Final Complete 08/23/18 18:45 Wound Culture - Final Staphylococcus Aureus - Mrsa Complete 08/23/18 11:30 Sputum Gram Stain - Final Complete 08/23/18 11:30 Sputum Sputum Culture - Final NORMAL UPPER RESPIRATORY THEO PRESENT Complete Laboratory Tests Test 08/26/18 06:45 White Blood Count 11.0 K/UL (4.8-10.8) H Red Blood Count 3.26 M/UL (4.70-6.10) L Hemoglobin 9.8 G/DL (14.2-18.0) L Hematocrit 30.3 % (42.0-52.0) L Mean Corpuscular Volume 93 FL (80-99) Mean Corpuscular Hemoglobin 29.9 PG (27.0-31.0) Mean Corpuscular Hemoglobin Concent 32.2 G/DL (32.0-36.0) Red Cell Distribution Width 14.4 % (11.6-14.8) Platelet Count 250 K/UL (150-450) Mean Platelet Volume 6.4 FL (6.5-10.1) L Neutrophils (%) (Auto) 84.9 % (45.0-75.0) H Lymphocytes (%) (Auto) 6.5 % (20.0-45.0) L Monocytes (%) (Auto) 5.2 % (1.0-10.0) Eosinophils (%) (Auto) 3.1 % (0.0-3.0) H Basophils (%) (Auto) 0.4 % (0.0-2.0) Sodium Level 139 MMOL/L (136-145) Potassium Level 3.5 MMOL/L (3.5-5.1) Chloride Level 105 MMOL/L (98-107) Carbon Dioxide Level 31 MMOL/L (21-32) Anion Gap 3 mmol/L (5-15) L Blood Urea Nitrogen 18 mg/dL (7-18) Creatinine 0.7 MG/DL (0.55-1.30) Estimat Glomerular Filtration Rate mL/min (>60) Glucose Level 265 MG/DL (74-106) H Calcium Level 8.0 MG/DL (8.5-10.1) L Total Bilirubin 0.5 MG/DL (0.2-1.0) Aspartate Amino Transf (AST/SGOT) 17 U/L (15-37) Alanine Aminotransferase (ALT/SGPT) 15 U/L (12-78) Alkaline Phosphatase 92 U/L (46-116) Total Protein 5.9 G/DL (6.4-8.2) L Albumin 1.3 G/DL (3.4-5.0) L Globulin 4.6 g/dL Albumin/Globulin Ratio 0.3 (1.0-2.7) L Current Medications Medications (Trade) Dose Ordered Sig/Benjamin Route PRN Reason Start Time Stop Time Status Last Admin Dose Admin Albuterol/ Ipratropium (Albuterol/ Ipratropium) 3 ml Q6HRT PRN HHN Bronchospasm 08/24/18 09:45 08/29/18 09:44 08/24/18 15:18 Aspirin (ASA) 81 mg DAILY GT 08/23/18 09:00 09/22/18 08:59 08/26/18 08:29 Dextrose (Dextrose 50%) 25 ml Q30M PRN IV Hypoglycemia 08/21/18 20:00 09/20/18 19:59 Dextrose (Dextrose 50%) 50 ml Q30M PRN IV Hypoglycemia 08/21/18 20:00 09/20/18 19:59 Heparin Sodium (Porcine) (Heparin 5000 units/ml) 5,000 units EVERY 12 HOURS SUBQ 08/21/18 21:00 09/20/18 20:59 08/26/18 08:39 Insulin Aspart (NovoLOG) EVERY 6 HOURS SUBQ 08/23/18 12:00 09/22/18 11:59 08/26/18 06:23 Lansoprazole (Prevacid) 30 mg DAILY GT 08/25/18 09:00 09/24/18 08:59 08/26/18 08:29 Levothyroxine Sodium (Synthroid) 125 mcg DAILY@0630 ORAL 08/24/18 06:30 09/23/18 06:29 08/26/18 06:41 Metronidazole (Flagyl) 500 mg Q8HR ORAL 08/25/18 14:00 09/01/18 13:59 08/26/18 06:23 Piperacillin Sod/ Tazobactam Sod 3.375 gm/Dextrose 110 ml @ 27.5 mls/hr EVERY 8 HOURS IVPB 08/25/18 14:00 08/30/18 13:59 08/26/18 06:23 FAZAL PORRAS Aug 26, 2018 10:50
--- NOTE | 2018-08-26 11:00 | Podiatric Progress Note ---
Assessment/Plan Patient Khoi Ahn is a 83 year old male who was admitted on Aug 21, 2018 at 15:57 with Assessment/Plan A/ 1) Diabetic foot ulcer right 2nd toe 2) Necrosis left heel 3) DM 4) Abnormal mobility P/ 1) Cont wound care as ordered with off loading 2) Reviewed: Arterial ultz BLE - mild calcific dz X-rays right foot - no osteo ESR, CRP 3) No surgical intervention at this time 4) Will follow Subjective Allergies: Coded Allergies: No Known Allergies (Unverified , 06/17/18) Subjective Patient in NAD. Objective Exam Last 24 Hour Vital Signs Date Time Temp Pulse Resp B/P (MAP) Pulse Ox O2 Delivery O2 Flow Rate FiO2 08/26/18 09:00 Nasal Cannula 2.0 08/26/18 08:00 97.7 78 20 130/75 (93) 98 97.7 08/26/18 04:30 85 32 97 Full Face 35 08/26/18 04:00 89 08/26/18 04:00 97.3 91 18 146/76 (99) 98 97.3 08/26/18 03:18 84 26 98 Facial 35 08/26/18 01:30 87 24 98 Facial 35 08/26/18 00:00 97.5 84 18 116/67 (83) 98 97.5 08/26/18 00:00 85 08/25/18 22:40 75 32 97 Facial 35 08/25/18 20:26 94 08/25/18 20:00 Bi-pap 08/25/18 20:00 97.0 90 20 137/71 (93) 98 97.0 08/25/18 19:20 Nasal Cannula 2.0 28 08/25/18 19:19 97 Nasal Cannula 2.0 28 08/25/18 16:00 98.4 81 18 158/75 (102) 100 98.4 08/25/18 16:00 Bi-pap 08/25/18 15:33 77 08/25/18 12:00 98.7 92 19 145/76 (99) 96 98.7 08/25/18 12:00 Bi-pap 08/25/18 11:44 88 Laboratory Tests Test 08/26/18 06:45 White Blood Count 11.0 K/UL (4.8-10.8) H Red Blood Count 3.26 M/UL (4.70-6.10) L Hemoglobin 9.8 G/DL (14.2-18.0) L Hematocrit 30.3 % (42.0-52.0) L Mean Corpuscular Volume 93 FL (80-99) Mean Corpuscular Hemoglobin 29.9 PG (27.0-31.0) Mean Corpuscular Hemoglobin Concent 32.2 G/DL (32.0-36.0) Red Cell Distribution Width 14.4 % (11.6-14.8) Platelet Count 250 K/UL (150-450) Mean Platelet Volume 6.4 FL (6.5-10.1) L Neutrophils (%) (Auto) 84.9 % (45.0-75.0) H Lymphocytes (%) (Auto) 6.5 % (20.0-45.0) L Monocytes (%) (Auto) 5.2 % (1.0-10.0) Eosinophils (%) (Auto) 3.1 % (0.0-3.0) H Basophils (%) (Auto) 0.4 % (0.0-2.0) Sodium Level 139 MMOL/L (136-145) Potassium Level 3.5 MMOL/L (3.5-5.1) Chloride Level 105 MMOL/L (98-107) Carbon Dioxide Level 31 MMOL/L (21-32) Anion Gap 3 mmol/L (5-15) L Blood Urea Nitrogen 18 mg/dL (7-18) Creatinine 0.7 MG/DL (0.55-1.30) Estimat Glomerular Filtration Rate mL/min (>60) Glucose Level 265 MG/DL (74-106) H Calcium Level 8.0 MG/DL (8.5-10.1) L Total Bilirubin 0.5 MG/DL (0.2-1.0) Aspartate Amino Transf (AST/SGOT) 17 U/L (15-37) Alanine Aminotransferase (ALT/SGPT) 15 U/L (12-78) Alkaline Phosphatase 92 U/L (46-116) Total Protein 5.9 G/DL (6.4-8.2) L Albumin 1.3 G/DL (3.4-5.0) L Globulin 4.6 g/dL Albumin/Globulin Ratio 0.3 (1.0-2.7) L Microbiology Date/Time Source Procedure Growth Status 08/21/18 15:15 Blood Blood Culture - Preliminary NO GROWTH AFTER 4 DAYS Resulted 08/23/18 18:45 Wound Gram Stain - Final Complete 08/23/18 18:45 Wound Culture - Final Staphylococcus Aureus - Mrsa Complete 08/23/18 11:30 Sputum Gram Stain - Final Complete 08/23/18 11:30 Sputum Sputum Culture - Final NORMAL UPPER RESPIRATORY THEO PRESENT Complete 08/25/18 17:00 Stool Clostridium difficile Toxin Assay - Final Complete 08/21/18 15:15 Urine,Clean Catch Urine Culture - Final Providencia Stuartii Complete 08/21/18 17:07 Rectum - Final NO CARBAPENEM-RESISTANT ENTEROBACTERI... Complete Dermatological Dermatological Narrative right 2nd toe full thickness ulceration. no bone or tendon exposed. Left heel eschar stable Flo De Jesus DPM Aug 26, 2018 11:00
--- NOTE | 2018-08-26 11:36 | Urology Progress Note ---
Assessment/Plan Assessment/Plan 1. Urinary retention with chronic suprapubic tube. 2. Benign prostatic hypertrophy history. 3. Neurogenic bladder. 4. Urinary tract infection and colonization. 5. Hematuria. 6. Proteinuria. keep SP tube, last exchanged 08/23 hand irrigate PRN cont with abx as ordered cysto later f/u on blood cx Subjective Allergies: Coded Allergies: No Known Allergies (Unverified , 06/17/18) Subjective all noted, looks comfortable Objective Last 24 Hour Vital Signs Date Time Temp Pulse Resp B/P (MAP) Pulse Ox O2 Delivery O2 Flow Rate FiO2 08/26/18 09:00 Nasal Cannula 2.0 08/26/18 08:00 97.7 78 20 130/75 (93) 98 97.7 08/26/18 08:00 78 08/26/18 04:30 85 32 97 Full Face 35 08/26/18 04:00 89 08/26/18 04:00 97.3 91 18 146/76 (99) 98 97.3 08/26/18 03:18 84 26 98 Facial 35 08/26/18 01:30 87 24 98 Facial 35 08/26/18 00:00 97.5 84 18 116/67 (83) 98 97.5 08/26/18 00:00 85 08/25/18 22:40 75 32 97 Facial 35 08/25/18 20:26 94 08/25/18 20:00 Bi-pap 08/25/18 20:00 97.0 90 20 137/71 (93) 98 97.0 08/25/18 19:20 Nasal Cannula 2.0 28 08/25/18 19:19 97 Nasal Cannula 2.0 28 08/25/18 16:00 98.4 81 18 158/75 (102) 100 98.4 08/25/18 16:00 Bi-pap 08/25/18 15:33 77 08/25/18 12:00 98.7 92 19 145/76 (99) 96 98.7 08/25/18 12:00 Bi-pap 08/25/18 11:44 88 Intake and Output 08/25/18 08/26/18 19:00 07:00 Intake Total 950.0 ml 65 ml Output Total 1000 ml 800 ml Balance -50.0 ml -735 ml IV Total 110.0 ml Tube Feeding 780 ml 65 ml Other 60 ml Output Urine Total 1000 ml 800 ml # Bowel Movements 2 1 Microbiology Date/Time Source Procedure Growth Status 08/21/18 15:15 Blood Blood Culture - Preliminary NO GROWTH AFTER 4 DAYS Resulted 08/23/18 18:45 Wound Gram Stain - Final Complete 08/23/18 18:45 Wound Culture - Final Staphylococcus Aureus - Mrsa Complete 08/23/18 11:30 Sputum Gram Stain - Final Complete 08/23/18 11:30 Sputum Sputum Culture - Final NORMAL UPPER RESPIRATORY THEO PRESENT Complete 08/25/18 17:00 Stool Clostridium difficile Toxin Assay - Final Complete 08/21/18 15:15 Urine,Clean Catch Urine Culture - Final Providencia Stuartii Complete 08/21/18 17:07 Rectum - Final NO CARBAPENEM-RESISTANT ENTEROBACTERI... Complete Current Medications Medications (Trade) Dose Ordered Sig/Benjamin Route PRN Reason Start Time Stop Time Status Last Admin Dose Admin Albuterol/ Ipratropium (Albuterol/ Ipratropium) 3 ml Q6HRT PRN HHN Bronchospasm 08/24/18 09:45 08/29/18 09:44 08/24/18 15:18 Aspirin (ASA) 81 mg DAILY GT 08/23/18 09:00 09/22/18 08:59 08/26/18 08:29 Dextrose (Dextrose 50%) 25 ml Q30M PRN IV Hypoglycemia 08/21/18 20:00 09/20/18 19:59 Dextrose (Dextrose 50%) 50 ml Q30M PRN IV Hypoglycemia 08/21/18 20:00 09/20/18 19:59 Heparin Sodium (Porcine) (Heparin 5000 units/ml) 5,000 units EVERY 12 HOURS SUBQ 08/21/18 21:00 09/20/18 20:59 08/26/18 08:39 Insulin Aspart (NovoLOG) EVERY 6 HOURS SUBQ 08/23/18 12:00 09/22/18 11:59 08/26/18 06:23 Lansoprazole (Prevacid) 30 mg DAILY GT 08/25/18 09:00 09/24/18 08:59 08/26/18 08:29 Levothyroxine Sodium (Synthroid) 125 mcg DAILY@0630 ORAL 08/24/18 06:30 09/23/18 06:29 08/26/18 06:41 Metronidazole (Flagyl) 500 mg Q8HR ORAL 08/25/18 14:00 09/01/18 13:59 08/26/18 06:23 Piperacillin Sod/ Tazobactam Sod 3.375 gm/Dextrose 110 ml @ 27.5 mls/hr EVERY 8 HOURS IVPB 08/25/18 14:00 08/30/18 13:59 08/26/18 06:23 Laboratory Tests 08/26/18 06:45: White Blood Count 11.0H, Red Blood Count 3.26L, Hemoglobin 9.8L, Hematocrit 30.3L, Mean Corpuscular Volume 93, Mean Corpuscular Hemoglobin 29.9, Mean Corpuscular Hemoglobin Concent 32.2, Red Cell Distribution Width 14.4, Platelet Count 250, Mean Platelet Volume 6.4L, Neutrophils (%) (Auto) 84.9H, Lymphocytes (%) (Auto) 6.5L, Monocytes (%) (Auto) 5.2, Eosinophils (%) (Auto) 3.1H, Basophils (%) (Auto) 0.4, Sodium Level 139, Potassium Level 3.5, Chloride Level 105, Carbon Dioxide Level 31, Anion Gap 3L, Blood Urea Nitrogen 18, Creatinine 0.7, Estimat Glomerular Filtration Rate , Glucose Level 265H, Calcium Level 8.0L , Total Bilirubin 0.5, Aspartate Amino Transf (AST/SGOT) 17, Alanine Aminotransferase (ALT/SGPT) 15, Alkaline Phosphatase 92, Total Protein 5.9L, Albumin 1.3L, Globulin 4.6, Albumin/Globulin Ratio 0.3L Height (Feet): 5 Height (Inches): 6.00 Weight (Pounds): 145 Objective exam stable, urine clearing ALEJANDRO COLLIER Aug 26, 2018 11:35
[2018-08-26 12:00] VITALS: BP 116/65
[2018-08-26 16:00] VITALS: BP 121/64
[2018-08-26 20:00] VITALS: BP 127/57
--- NOTE | 2018-08-26 20:15 | Progress Note ---
DATE: 08/26/2018 CARDIOLOGY PROGRESS NOTES SUBJECTIVE: The patient is off BiPAP during the day. He has required less frequent BiPAP support. He continues to require wound care on his right foot as well as respiratory hygiene for secretions and congestion. Monitored rhythm, sinus with frequent atrial ectopics. OBJECTIVE: VITAL SIGNS: Blood pressure 145/76, pulse 91, and respirations 18. LUNGS: Coarse breath sounds. Scattered rhonchi. HEART: Regular rhythm and rate. Normal S1, S2. ABDOMEN: Soft. G-tube intact. EXTREMITIES: Trace edema. Right second toe drainage decreasing. LABORATORY DATA: White count 11 and hemoglobin 9.8. Potassium 3.5. Albumin 1.3. BUN 18 and creatinine 0.7. IMPRESSION: 1. Healthcare-acquired pneumonia. 2. Acute respiratory insufficiency. 3. Hypoxia. 4. Aspiration. 5. Cerebrovascular disease with dementia. 6. Dysphagia with G-tube. 7. Acute on chronic diastolic congestive heart failure. 8. Acute on chronic renal failure due to hypovolemia, recovered. 9. Severe protein-calorie malnutrition. 10. Right second toe cellulitis with no signs of osteomyelitis. 11. Peripheral vascular disease that is mild and non flow-limiting. 12. Hypomagnesemia. PLAN: 1. Antimicrobials. 2. Respiratory hygiene. 3. Wean off BiPAP. 4. Periodic diuresis. 5. Monitor clinical parameters. 6. Trend natriuretic peptide assay. 7. Replace electrolytes as needed. 8. Protein supplement by feeding tube. 9. DVT prophylaxis. 10. Multidisciplinary consultations with followup. Bryon Ramirez M.D. DR: DARRON JOB#: [id number] CC:
[2018-08-27] VITALS: BP 143/83
[2018-08-27] MEDS: NovoLOG Insulin Flexpen SUBQ SCH ×4 (01:07→18:54)
[2018-08-27 04:00] VITALS: BP_SYST 125; BP_SYST 143; BP_DIAS 62; BP_DIAS 92
[2018-08-27] MEDS: Piperacillin/Tazobactam 3.375 GM in D5W 110 ML IVPB SCH ×3 (06:54→21:06)
[2018-08-27] MEDS: Levothyroxine 125mcg tab ORAL SCH (06:55)
[2018-08-27] MEDS: metroNIDAZOLE 500mg tab ORAL SCH ×3 (06:55→21:06)
[2018-08-27 08:00] VITALS: BP 129/67
--- NOTE | 2018-08-27 08:38 | General Progress Note ---
Assessment/Plan Problem List: (1) UTI (urinary tract infection) ICD Codes: N39.0 - Urinary tract infection, site not specified SNOMED: 38684970 Qualifiers: Qualified Codes: T83.511A - Infection and inflammatory reaction due to indwelling urethral catheter, initial encounter; N39.0 - Urinary tract infection , site not specified (2) Severe sepsis ICD Codes: A41.9 - Sepsis, unspecified organism; R65.20 - Severe sepsis without septic shock SNOMED: 70341637 (3) NSTEMI (non-ST elevated myocardial infarction) ICD Codes: I21.4 - Non-ST elevation (NSTEMI) myocardial infarction SNOMED: 481160969 (4) Right lower lobe pneumonia ICD Codes: J18.1 - Lobar pneumonia, unspecified organism SNOMED: 416819325 Qualifiers: Qualified Codes: J18.1 - Lobar pneumonia, unspecified organism (5) Elevated lactic acid level ICD Codes: R79.89 - Other specified abnormal findings of blood chemistry SNOMED: 8191843 Status: stable, progressing Assessment/Plan iv abx follow up cultures bipap as needed resp rx gt feeds follow up am labs duplex legs dvt/stress ulcer prophlaxis skin care Subjective ROS Limited/Unobtainable: No Constitutional: Reports: malaise, weakness HEENT: Reports: no symptoms Cardiovascular: Reports: no symptoms Respiratory: Reports: no symptoms Gastrointestinal/Abdominal: Reports: difficulty swallowing Genitourinary: Reports: no symptoms Neurologic/Psychiatric: Reports: pre-existing deficit Endocrine: Reports: no symptoms Hematologic/Lymphatic: Reports: no symptoms Allergies: Coded Allergies: No Known Allergies (Unverified , 06/17/18) All Systems: reviewed and negative except above Subjective stable of bipap overnight. no events. no fever or chills. no chest pain no sob. Objective Last 24 Hour Vital Signs Date Time Temp Pulse Resp B/P (MAP) Pulse Ox O2 Delivery O2 Flow Rate FiO2 08/27/18 04:00 86 08/27/18 04:00 97.3 92 24 125/62 (83) 100 97.3 08/27/18 00:00 90 08/27/18 00:00 97.5 90 25 143/83 (103) 91 97.5 08/26/18 21:00 Nasal Cannula 2.0 08/26/18 20:52 Nasal Cannula 2.0 28 10/5/18 20:52 92 Nasal Cannula 2.0 28 08/26/18 20:00 98.0 80 23 127/57 (80) 95 98.0 08/26/18 20:00 78 08/26/18 16:00 97.3 87 24 121/64 (83) 96 97.3 08/26/18 16:00 76 08/26/18 12:00 97.9 81 20 116/65 (82) 96 97.9 08/26/18 12:00 83 08/26/18 09:00 Nasal Cannula 2.0 Intake and Output 08/26/18 08/27/18 19:00 07:00 Output Total 925 ml Balance -925 ml Output Urine Total 925 ml # Voids 2 Height (Feet): 5 Height (Inches): 6.00 Weight (Pounds): 145 Objective General Appearance: WD/WN, alert Neck: supple Cardiovascular: normal rate, regular rhythm Respiratory/Chest: chest wall non-tender, lungs with farhat rhonchi Abdomen: normal bowel sounds, non tender, soft, no organomegaly Neurologic: unresponsive, aphasia Michael Zuniga MD Aug 27, 2018 08:38
--- NOTE | 2018-08-27 08:54 | Urology Progress Note ---
Assessment/Plan Assessment/Plan 1. Urinary retention with chronic suprapubic tube. 2. Benign prostatic hypertrophy history. 3. Neurogenic bladder. 4. Urinary tract infection and colonization. 5. Hematuria. 6. Proteinuria. keep SP tube, last exchanged 08/23 hand irrigate PRN cont with abx as ordered cysto later Subjective Allergies: Coded Allergies: No Known Allergies (Unverified , 06/17/18) Subjective all noted, looks comfortable Objective Last 24 Hour Vital Signs Date Time Temp Pulse Resp B/P (MAP) Pulse Ox O2 Delivery O2 Flow Rate FiO2 08/27/18 08:00 98.1 80 22 129/67 (87) 100 98.1 08/27/18 04:00 86 08/27/18 04:00 97.3 92 24 125/62 (83) 100 97.3 08/27/18 00:00 90 08/27/18 00:00 97.5 90 25 143/83 (103) 91 97.5 08/26/18 21:00 Nasal Cannula 2.0 08/26/18 20:52 Nasal Cannula 2.0 28 08/26/18 20:52 92 Nasal Cannula 2.0 28 08/26/18 20:00 98.0 80 23 127/57 (80) 95 98.0 08/26/18 20:00 78 08/26/18 16:00 97.3 87 24 121/64 (83) 96 97.3 08/26/18 16:00 76 08/26/18 12:00 97.9 81 20 116/65 (82) 96 97.9 08/26/18 12:00 83 08/26/18 09:00 Nasal Cannula 2.0 Intake and Output 08/26/18 08/27/18 19:00 07:00 Output Total 925 ml Balance -925 ml Output Urine Total 925 ml # Voids 2 Microbiology Date/Time Source Procedure Growth Status 08/21/18 15:15 Blood Blood Culture - Final NO GROWTH AFTER 5 DAYS Complete 08/23/18 18:45 Wound Gram Stain - Final Complete 08/23/18 18:45 Wound Culture - Final Staphylococcus Aureus - Mrsa Complete 08/23/18 11:30 Sputum Gram Stain - Final Complete 08/23/18 11:30 Sputum Sputum Culture - Final NORMAL UPPER RESPIRATORY THEO PRESENT Complete 08/25/18 17:00 Stool Clostridium difficile Toxin Assay - Final Complete 08/21/18 15:15 Urine,Clean Catch Urine Culture - Final Providencia Stuartii Complete 08/21/18 17:07 Rectum - Final NO CARBAPENEM-RESISTANT ENTEROBACTERI... Complete Current Medications Medications (Trade) Dose Ordered Sig/Benjamin Route PRN Reason Start Time Stop Time Status Last Admin Dose Admin Albuterol/ Ipratropium (Albuterol/ Ipratropium) 3 ml Q6HRT PRN HHN Bronchospasm 08/24/18 09:45 08/29/18 09:44 08/24/18 15:18 Aspirin (ASA) 81 mg DAILY GT 08/23/18 09:00 09/22/18 08:59 08/26/18 08:29 Dextrose (Dextrose 50%) 25 ml Q30M PRN IV Hypoglycemia 08/21/18 20:00 09/20/18 19:59 Dextrose (Dextrose 50%) 50 ml Q30M PRN IV Hypoglycemia 08/21/18 20:00 09/20/18 19:59 Heparin Sodium (Porcine) (Heparin 5000 units/ml) 5,000 units EVERY 12 HOURS SUBQ 08/21/18 21:00 09/20/18 20:59 08/26/18 21:45 Insulin Aspart (NovoLOG) EVERY 6 HOURS SUBQ 08/23/18 12:00 09/22/18 11:59 08/27/18 06:56 Lansoprazole (Prevacid) 30 mg DAILY GT 08/25/18 09:00 09/24/18 08:59 08/26/18 08:29 Levothyroxine Sodium (Synthroid) 125 mcg DAILY@0630 ORAL 08/24/18 06:30 09/23/18 06:29 08/27/18 06:55 Metronidazole (Flagyl) 500 mg Q8HR ORAL 08/25/18 14:00 09/01/18 13:59 08/27/18 06:55 Piperacillin Sod/ Tazobactam Sod 3.375 gm/Dextrose 110 ml @ 27.5 mls/hr EVERY 8 HOURS IVPB 08/25/18 14:00 08/30/18 13:59 08/27/18 06:54 Height (Feet): 5 Height (Inches): 6.00 Weight (Pounds): 145 Objective exam stable, urine clearing ALEJANDRO COLLIER Aug 27, 2018 08:54
[2018-08-27] MEDS: Heparin 5000 units/ml inj SUBQ SCH ×2 (09:00→21:00)
[2018-08-27] MEDS: Aspirin Baby 81mg GT SCH (09:00)
[2018-08-27 12:00] VITALS: BP 131/65
[2018-08-27] MEDS ORDERED: Tubing IV Secondary IV ONE (15:13)
[2018-08-27] MEDS ORDERED: NS 275ml ONE (15:13)
[2018-08-27 16:00] VITALS: BP 135/61
--- NOTE | 2018-08-27 16:09 | Pulmonology Progress Note ---
Assessment/Plan Assessment/Plan Assessment/Plan IMPRESSION: 1. Respiratory failure, acute, improved 2. Sepsis with shock. 3. Dysphagia. 4. G-tube. 5. CVA. 6. Altered mental status. 7. Aspiration pneumonia 8. Severe protein-calorie malnutrition. 9. Diabetes. PLAN continue same respiratory care aspiration precautions antibiotics monitor imaging DVT prophylaxis impression, plan, and exam edited and reviewed in detail care discussed with RN Subjective ROS Limited/Unobtainable: Yes Allergies: Coded Allergies: No Known Allergies (Unverified , 06/17/18) Subjective reviewed care moved to tele off BIPAP Objective Last 24 Hour Vital Signs Date Time Temp Pulse Resp B/P (MAP) Pulse Ox O2 Delivery O2 Flow Rate FiO2 08/26/18 04:30 85 32 97 Full Face 35 08/26/18 04:00 89 08/26/18 04:00 97.3 91 18 146/76 (99) 98 97.3 08/26/18 03:18 84 26 98 Facial 35 08/26/18 01:30 87 24 98 Facial 35 08/26/18 00:00 97.5 84 18 116/67 (83) 98 97.5 08/26/18 00:00 85 08/25/18 22:40 75 32 97 Facial 35 08/25/18 20:26 94 08/25/18 20:00 Bi-pap 08/25/18 20:00 97.0 90 20 137/71 (93) 98 97.0 08/25/18 19:20 Nasal Cannula 2.0 28 08/25/18 19:19 97 Nasal Cannula 2.0 28 08/25/18 16:00 98.4 81 18 158/75 (102) 100 98.4 08/25/18 16:00 Bi-pap 08/25/18 15:33 77 08/25/18 12:00 98.7 92 19 145/76 (99) 96 98.7 08/25/18 12:00 Bi-pap 08/25/18 11:44 88 08/25/18 08:32 83 Intake and Output 08/25/18 08/26/18 19:00 07:00 Intake Total 950.0 ml 65 ml Output Total 1000 ml 800 ml Balance -50.0 ml -735 ml IV Total 110.0 ml Tube Feeding 780 ml 65 ml Other 60 ml Output Urine Total 1000 ml 800 ml # Bowel Movements 2 1 Objective GENERAL: Ill-appearing male, withdrawn, nonverbal. reduced LOC LUNGS: With some rhonchi, moderate air entry, symmetric. CARDIAC: Normal S1, S2. Slightly tachycardic without murmurs, rubs, or gallops. ABDOMEN: Soft, nontender, nondistended. no distention EXTREMITIES: No cyanosis or clubbing. SKIN: noted GENITOURINARY: The patient has suprapubic catheter. NEUROLOGIC: Neurologically withdrawn but does respond to painful stimuli. Microbiology Date/Time Source Procedure Growth Status 08/23/18 18:45 Wound Gram Stain - Final Resulted 08/23/18 18:45 Wound Culture - Preliminary Staphylococcus Aureus Resulted 08/23/18 11:30 Sputum Gram Stain - Final Complete 08/23/18 11:30 Sputum Sputum Culture - Final NORMAL UPPER RESPIRATORY THEO PRESENT Complete Laboratory Tests 08/25/18 10:22: Arterial Blood pH 7.475H, Arterial Blood Partial Pressure CO2 31.4L, Arterial Blood Partial Pressure O2 100.7H, Arterial Blood HCO3 22.6, Arterial Blood Oxygen Saturation 97.4, Arterial Blood Base Excess -0.5, Shawn Test Positive 08/26/18 06:45: White Blood Count [Pending], Red Blood Count [Pending], Hemoglobin [Pending], Hematocrit [Pending], Mean Corpuscular Volume [Pending], Mean Corpuscular Hemoglobin [Pending], Mean Corpuscular Hemoglobin Concent [Pending], Red Cell Distribution Width [Pending], Platelet Count [Pending], Mean Platelet Volume [ Pending], Neutrophils (%) (Auto) [Pending], Lymphocytes (%) (Auto) [Pending], Monocytes (%) (Auto) [Pending], Eosinophils (%) (Auto) [Pending], Basophils (%) (Auto) [Pending], Sodium Level [Pending], Potassium Level [Pending], Chloride Level [Pending], Carbon Dioxide Level [Pending], Blood Urea Nitrogen [Pending], Creatinine [Pending], Estimat Glomerular Filtration Rate [Pending], Glucose Level [Pending], Calcium Level [Pending], Total Bilirubin [Pending], Aspartate Amino Transf (AST/SGOT) [Pending], Alanine Aminotransferase (ALT/SGPT) [Pending] , Alkaline Phosphatase [Pending], Total Protein [Pending], Albumin [Pending], Globulin [Pending] Current Medications Medications (Trade) Dose Ordered Sig/Benjamin Route PRN Reason Start Time Stop Time Status Last Admin Dose Admin Albuterol/ Ipratropium (Albuterol/ Ipratropium) 3 ml Q6HRT PRN HHN Bronchospasm 08/24/18 09:45 08/29/18 09:44 08/24/18 15:18 Aspirin (ASA) 81 mg DAILY GT 08/23/18 09:00 09/22/18 08:59 08/25/18 09:55 Dextrose (Dextrose 50%) 25 ml Q30M PRN IV Hypoglycemia 08/21/18 20:00 09/20/18 19:59 Dextrose (Dextrose 50%) 50 ml Q30M PRN IV Hypoglycemia 08/21/18 20:00 09/20/18 19:59 Heparin Sodium (Porcine) (Heparin 5000 units/ml) 5,000 units EVERY 12 HOURS SUBQ 08/21/18 21:00 09/20/18 20:59 08/25/18 21:17 Insulin Aspart (NovoLOG) EVERY 6 HOURS SUBQ 08/23/18 12:00 09/22/18 11:59 08/26/18 06:23 Lansoprazole (Prevacid) 30 mg DAILY GT 08/25/18 09:00 09/24/18 08:59 08/25/18 09:55 Levothyroxine Sodium (Synthroid) 125 mcg DAILY@0630 ORAL 08/24/18 06:30 09/23/18 06:29 08/26/18 06:41 Metronidazole (Flagyl) 500 mg Q8HR ORAL 08/25/18 14:00 09/01/18 13:59 08/26/18 06:23 Piperacillin Sod/ Tazobactam Sod 3.375 gm/Dextrose 110 ml @ 27.5 mls/hr EVERY 8 HOURS IVPB 08/25/18 14:00 08/30/18 13:59 08/26/18 06:23 Subjective ROS Limited/Unobtainable: No Allergies: Coded Allergies: No Known Allergies (Unverified , 06/17/18) Objective Last 24 Hour Vital Signs Date Time Temp Pulse Resp B/P (MAP) Pulse Ox O2 Delivery O2 Flow Rate FiO2 08/27/18 12:00 97.9 76 22 131/65 (87) 95 97.9 08/27/18 12:00 72 08/27/18 09:00 Nasal Cannula 2.0 08/27/18 08:54 96 Nasal Cannula 2.0 28 08/27/18 08:54 Nasal Cannula 2.0 28 08/27/18 08:00 78 08/27/18 08:00 98.1 80 22 129/67 (87) 100 98.1 08/27/18 04:00 86 08/27/18 04:00 97.3 92 24 125/62 (83) 100 97.3 08/27/18 00:00 90 08/27/18 00:00 97.5 90 25 143/83 (103) 91 97.5 08/26/18 21:00 Nasal Cannula 2.0 08/26/18 20:52 Nasal Cannula 2.0 28 08/26/18 20:52 92 Nasal Cannula 2.0 28 08/26/18 20:00 98.0 80 23 127/57 (80) 95 98.0 08/26/18 20:00 78 Intake and Output 08/26/18 08/27/18 19:00 07:00 Output Total 925 ml Balance -925 ml Output Urine Total 925 ml # Voids 2 Microbiology Date/Time Source Procedure Growth Status 08/25/18 17:00 Stool Clostridium difficile Toxin Assay - Final Complete Current Medications Medications (Trade) Dose Ordered Sig/Benjamin Route PRN Reason Start Time Stop Time Status Last Admin Dose Admin Albuterol/ Ipratropium (Albuterol/ Ipratropium) 3 ml Q6HRT PRN HHN Bronchospasm 08/24/18 09:45 08/29/18 09:44 08/24/18 15:18 Aspirin (ASA) 81 mg DAILY GT 08/23/18 09:00 09/22/18 08:59 08/26/18 08:29 Dextrose (Dextrose 50%) 25 ml Q30M PRN IV Hypoglycemia 08/21/18 20:00 09/20/18 19:59 Dextrose (Dextrose 50%) 50 ml Q30M PRN IV Hypoglycemia 08/21/18 20:00 09/20/18 19:59 Heparin Sodium (Porcine) (Heparin 5000 units/ml) 5,000 units EVERY 12 HOURS SUBQ 08/21/18 21:00 09/20/18 20:59 08/26/18 21:45 Ibuprofen (Advil) 200 mg ONCE ORAL 08/27/18 14:30 08/27/18 16:30 08/27/18 15:15 Insulin Aspart (NovoLOG) EVERY 6 HOURS SUBQ 08/23/18 12:00 09/22/18 11:59 08/27/18 12:36 Lansoprazole (Prevacid) 30 mg DAILY GT 08/25/18 09:00 09/24/18 08:59 08/27/18 09:53 Levothyroxine Sodium (Synthroid) 125 mcg DAILY@0630 ORAL 08/24/18 06:30 09/23/18 06:29 08/27/18 06:55 Metronidazole (Flagyl) 500 mg Q8HR ORAL 08/25/18 14:00 09/01/18 13:59 08/27/18 15:12 Piperacillin Sod/ Tazobactam Sod 3.375 gm/Dextrose 110 ml @ 27.5 mls/hr EVERY 8 HOURS IVPB 08/25/18 14:00 08/30/18 13:59 08/27/18 15:13 Bryon Carlson MD Aug 27, 2018 16:09
[2018-08-27 20:00] VITALS: BP 106/54
[2018-08-28] VITALS: BP 142/68
--- NOTE | 2018-08-28 03:30 | Progress Note ---
DATE: 08/27/2018 CARDIOLOGY PROGRESS NOTE SUBJECTIVE: The patient is off BiPAP. Blood pressure parameters stable. Monitored rhythm sinus with rare nonsustained ectopic. OBJECTIVE: VITAL SIGNS: Blood pressure 116/67 to 146/76, heart rate 80s, respiratory rate 20, afebrile. LUNGS: Coarse breath sounds. Scattered rhonchi. HEART: Regular rhythm and rate. Normal S1, S2. ABDOMEN: Soft, G-tube intact. Suprapubic catheter noted. EXTREMITIES: With trace edema. Right foot drainage decreased from the second toe. Wound cultures MRSA. LABORATORY DATA: White count 11, hemoglobin 9.8. Potassium 3.5, BUN 18, creatinine 0.7. Magnesium yesterday was 1.5. Albumin is 1.3. IMPRESSION: 1. Sepsis. 2. Pneumonia. 3. Cellulitis and abscess right second toe. 4. Acute on chronic diastolic congestive heart failure. 5. Severe protein-calorie malnutrition. 6. Healthcare acquired pneumonia with hypoxia. 7. Hypomagnesemia. 8. Non flow-limiting peripheral vascular disease. PLAN: 1. Antimicrobials. 2. Wound care. 3. Respiratory hygiene. 4. Recheck laboratory studies, chest x-ray, and reassess need for diuresis. 5. Titrate anti-failure regimen. 6. Replace magnesium. Bryon Ramirez M.D. DR: SINDHU JOB#: [id number] CC:
[2018-08-28 04:00] VITALS: BP 130/66
[2018-08-28] MEDS: NovoLOG Insulin Flexpen SUBQ SCH ×5 (06:00→23:29)
[2018-08-28] MEDS: Piperacillin/Tazobactam 3.375 GM in D5W 110 ML IVPB SCH (06:26)
[2018-08-28] MEDS: metroNIDAZOLE 500mg tab ORAL SCH (06:27)
[2018-08-28] MEDS: Levothyroxine 125mcg tab ORAL SCH (06:27)
[2018-08-28 08:00] VITALS: BP 138/74
[2018-08-28 08:57] LABS: ALANINE AMINOTRANSFERASE 13 U/L (12-78); ALBUMIN 1.5 G/DL (3.4-5.0); ALBUMIN/GLOBULIN RATIO 0.3 (1.0-2.7); ALKALINE PHOSPHATASE 68 U/L (46-116); ANION GAP 7 mmol/L (5-15); BILIRUBIN,TOTAL 0.2 MG/DL (0.2-1.0); BLOOD UREA NITROGEN 13 mg/dL (7-18); CALCIUM 8.1 MG/DL (8.5-10.1); CARBON DIOXIDE 26 MMOL/L (21-32); CHLORIDE 103 MMOL/L (98-107); CREATININE 0.7 MG/DL (0.55-1.30); POTASSIUM 3.6 MMOL/L (3.5-5.1); SODIUM 136 MMOL/L (136-145)
[2018-08-28] MEDS: Heparin 5000 units/ml inj SUBQ SCH ×2 (09:00→21:14)
[2018-08-28] MEDS: Aspirin Baby 81mg GT SCH (09:00)
[2018-08-28 09:06] LABS: ASPARTATE AMINO TRANSFERASE 21 U/L (15-37)
--- NOTE | 2018-08-28 09:09 | Urology Progress Note ---
Assessment/Plan Assessment/Plan 1. Urinary retention with chronic suprapubic tube. 2. Benign prostatic hypertrophy history. 3. Neurogenic bladder. 4. Urinary tract infection and colonization. 5. Hematuria. 6. Proteinuria. keep SP tube, last exchanged 08/23 hand irrigate PRN cont with abx as ordered cysto later Subjective Allergies: Coded Allergies: No Known Allergies (Unverified , 06/17/18) Subjective all noted, looks comfortable Objective Last 24 Hour Vital Signs Date Time Temp Pulse Resp B/P (MAP) Pulse Ox O2 Delivery O2 Flow Rate FiO2 08/28/18 04:00 98.4 51 19 130/66 (87) 100 98.4 08/28/18 04:00 59 08/28/18 03:41 83 26 99 Facial 35 08/28/18 01:24 79 17 99 Facial 35 08/28/18 00:00 52 08/28/18 00:00 97.2 51 16 142/68 (92) 100 97.2 08/27/18 22:21 81 15 98 Facial 35 08/27/18 21:00 Nasal Cannula 2.0 08/27/18 20:00 61 08/27/18 20:00 97.7 56 20 106/54 (71) 100 97.7 08/27/18 19:55 Nasal Cannula 2.0 28 08/27/18 19:55 96 Nasal Cannula 2.0 28 08/27/18 16:00 75 08/27/18 16:00 97.1 71 20 135/61 (85) 99 97.1 08/27/18 12:00 97.9 76 22 131/65 (87) 95 97.9 08/27/18 12:00 72 Intake and Output 08/27/18 08/28/18 19:00 07:00 Output Total 650 ml 325 ml Balance -650 ml -325 ml Output Urine Total 650 ml 325 ml # Bowel Movements 2 Microbiology Date/Time Source Procedure Growth Status 08/21/18 15:15 Blood Blood Culture - Final NO GROWTH AFTER 5 DAYS Complete 08/23/18 18:45 Wound Gram Stain - Final Complete 08/23/18 18:45 Wound Culture - Final Staphylococcus Aureus - Mrsa Complete 08/23/18 11:30 Sputum Gram Stain - Final Complete 08/23/18 11:30 Sputum Sputum Culture - Final NORMAL UPPER RESPIRATORY THEO PRESENT Complete 08/25/18 17:00 Stool Clostridium difficile Toxin Assay - Final Complete 08/21/18 15:15 Urine,Clean Catch Urine Culture - Final Providencia Stuartii Complete 08/21/18 17:07 Rectum - Final NO CARBAPENEM-RESISTANT ENTEROBACTERI... Complete Current Medications Medications (Trade) Dose Ordered Sig/Benjamin Route PRN Reason Start Time Stop Time Status Last Admin Dose Admin Acetaminophen (Tylenol) 650 mg Q4H PRN ORAL Mild Pain/Temp > 100.5 08/28/18 09:00 09/27/18 08:59 Albuterol/ Ipratropium (Albuterol/ Ipratropium) 3 ml Q6HRT PRN HHN Bronchospasm 08/24/18 09:45 08/29/18 09:44 08/24/18 15:18 Aspirin (ASA) 81 mg DAILY GT 08/23/18 09:00 09/22/18 08:59 08/26/18 08:29 Dextrose (Dextrose 50%) 25 ml Q30M PRN IV Hypoglycemia 08/21/18 20:00 09/20/18 19:59 Dextrose (Dextrose 50%) 50 ml Q30M PRN IV Hypoglycemia 08/21/18 20:00 09/20/18 19:59 Heparin Sodium (Porcine) (Heparin 5000 units/ml) 5,000 units EVERY 12 HOURS SUBQ 08/21/18 21:00 09/20/18 20:59 08/26/18 21:45 Insulin Aspart (NovoLOG) EVERY 6 HOURS SUBQ 08/23/18 12:00 09/22/18 11:59 08/27/18 18:54 Lansoprazole (Prevacid) 30 mg DAILY GT 08/25/18 09:00 09/24/18 08:59 08/27/18 09:53 Levothyroxine Sodium (Synthroid) 125 mcg DAILY@0630 ORAL 08/24/18 06:30 09/23/18 06:29 08/28/18 06:27 Metronidazole (Flagyl) 500 mg Q8HR ORAL 08/25/18 14:00 09/01/18 13:59 08/28/18 06:27 Piperacillin Sod/ Tazobactam Sod 3.375 gm/Dextrose 110 ml @ 27.5 mls/hr EVERY 8 HOURS IVPB 08/25/18 14:00 08/30/18 13:59 08/28/18 06:26 Laboratory Tests 08/28/18 06:15: Sodium Level 136, Potassium Level 3.6, Chloride Level 103, Carbon Dioxide Level 26, Anion Gap 7, Blood Urea Nitrogen 13, Creatinine 0.7, Estimat Glomerular Filtration Rate , Glucose Level 125H, Calcium Level 8.1L, Magnesium Level 1.6L, Total Bilirubin 0.2, Aspartate Amino Transf (AST/SGOT) 21, Alanine Aminotransferase (ALT/SGPT) 13, Alkaline Phosphatase 68, Pro-B-Type Natriuretic Peptide 4468H, Total Protein 6.0L, Albumin 1.5L, Globulin 4.5, Albumin/Globulin Ratio 0.3L Height (Feet): 5 Height (Inches): 6.00 Weight (Pounds): 145 Objective exam stable, urine clearing ALEJANDRO COLLIER Aug 28, 2018 09:09
--- NOTE | 2018-08-28 10:09 | Infectious Diseases Prog Note ---
Assessment/Plan Assessment/Plan A: Complicated UTI treated Pneumonia treated Hypoxic respiratory failure Dementia DM HPN R second toe cellulitis P; discontinue Zosyn Observe off antibiotic Subjective ROS Limited/Unobtainable: Yes Gastrointestinal/Abdominal: Reports: other - epigastric pain Allergies: Coded Allergies: No Known Allergies (Unverified , 06/17/18) Objective Vital Signs Last 24 Hour Vital Signs Date Time Temp Pulse Resp B/P (MAP) Pulse Ox O2 Delivery O2 Flow Rate FiO2 08/28/18 04:00 98.4 51 19 130/66 (87) 100 98.4 08/28/18 04:00 59 08/28/18 03:41 83 26 99 Facial 35 08/28/18 01:24 79 17 99 Facial 35 08/28/18 00:00 52 08/28/18 00:00 97.2 51 16 142/68 (92) 100 97.2 08/27/18 22:21 81 15 98 Facial 35 08/27/18 21:00 Nasal Cannula 2.0 08/27/18 20:00 61 08/27/18 20:00 97.7 56 20 106/54 (71) 100 97.7 08/27/18 19:55 Nasal Cannula 2.0 28 08/27/18 19:55 96 Nasal Cannula 2.0 28 08/27/18 16:00 75 08/27/18 16:00 97.1 71 20 135/61 (85) 99 97.1 08/27/18 12:00 97.9 76 22 131/65 (87) 95 97.9 08/27/18 12:00 72 Height (Feet): 5 Height (Inches): 6.00 Weight (Pounds): 145 HEENT: mucous membranes moist Respiratory/Chest: lungs clear Cardiovascular: normal rate Abdomen: soft, non tender, other - GT feeding Genitourinary: other - Suprapubic catheter Extremities: no edema Neurologic/Psychiatric: alert, responsive Musculoskeletal: atrophy Microbiology Date/Time Source Procedure Growth Status 08/25/18 17:00 Stool Clostridium difficile Toxin Assay - Final Complete Laboratory Tests Test 08/28/18 06:15 Sodium Level 136 MMOL/L (136-145) Potassium Level 3.6 MMOL/L (3.5-5.1) Chloride Level 103 MMOL/L (98-107) Carbon Dioxide Level 26 MMOL/L (21-32) Anion Gap 7 mmol/L (5-15) Blood Urea Nitrogen 13 mg/dL (7-18) Creatinine 0.7 MG/DL (0.55-1.30) Estimat Glomerular Filtration Rate mL/min (>60) Glucose Level 125 MG/DL (74-106) H Calcium Level 8.1 MG/DL (8.5-10.1) L Magnesium Level 1.6 MG/DL (1.8-2.4) L Total Bilirubin 0.2 MG/DL (0.2-1.0) Aspartate Amino Transf (AST/SGOT) 21 U/L (15-37) Alanine Aminotransferase (ALT/SGPT) 13 U/L (12-78) Alkaline Phosphatase 68 U/L (46-116) Pro-B-Type Natriuretic Peptide 4468 pg/mL (0-125) H Total Protein 6.0 G/DL (6.4-8.2) L Albumin 1.5 G/DL (3.4-5.0) L Globulin 4.5 g/dL Albumin/Globulin Ratio 0.3 (1.0-2.7) L Current Medications Medications (Trade) Dose Ordered Sig/Benjamin Route PRN Reason Start Time Stop Time Status Last Admin Dose Admin Acetaminophen (Tylenol) 650 mg Q4H PRN ORAL Mild Pain/Temp > 100.5 08/28/18 09:00 09/27/18 08:59 Albuterol/ Ipratropium (Albuterol/ Ipratropium) 3 ml Q6HRT PRN HHN Bronchospasm 08/24/18 09:45 08/29/18 09:44 08/24/18 15:18 Aspirin (ASA) 81 mg DAILY GT 08/23/18 09:00 09/22/18 08:59 08/26/18 08:29 Dextrose (Dextrose 50%) 25 ml Q30M PRN IV Hypoglycemia 08/21/18 20:00 09/20/18 19:59 Dextrose (Dextrose 50%) 50 ml Q30M PRN IV Hypoglycemia 08/21/18 20:00 09/20/18 19:59 Heparin Sodium (Porcine) (Heparin 5000 units/ml) 5,000 units EVERY 12 HOURS SUBQ 08/21/18 21:00 09/20/18 20:59 08/26/18 21:45 Insulin Aspart (NovoLOG) EVERY 6 HOURS SUBQ 08/23/18 12:00 09/22/18 11:59 08/27/18 18:54 Lansoprazole (Prevacid) 30 mg DAILY GT 08/25/18 09:00 09/24/18 08:59 08/27/18 09:53 Levothyroxine Sodium (Synthroid) 125 mcg DAILY@0630 ORAL 08/24/18 06:30 09/23/18 06:29 08/28/18 06:27 Metronidazole (Flagyl) 500 mg Q8HR ORAL 08/25/18 14:00 09/01/18 13:59 08/28/18 06:27 Piperacillin Sod/ Tazobactam Sod 3.375 gm/Dextrose 110 ml @ 27.5 mls/hr EVERY 8 HOURS IVPB 08/25/18 14:00 08/30/18 13:59 08/28/18 06:26 Slade Odonnell MD Aug 28, 2018 10:09
[2018-08-28 11:20] LABS: BASOPHILS % (AUTO) 0.8 % (0.0-2.0); HEMATOCRIT 28.2 % (42.0-52.0); HEMOGLOBIN 9.3 G/DL (14.2-18.0); LYMPHOCYTES % (AUTO) 15.2 % (20.0-45.0); MEAN CORPUSCULAR VOLUME 92 FL (80-99); MONOCYTES % (AUTO) 6.2 % (1.0-10.0); NEUTROPHILS % (AUTO) 70.8 % (45.0-75.0); PLATELET COUNT 256 K/UL (150-450); RED BLOOD COUNT 3.05 M/UL (4.70-6.10); RED CELL DISTRIBUTION WIDTH 14.7 % (11.6-14.8); WHITE BLOOD COUNT 7.9 K/UL (4.8-10.8)
[2018-08-28 12:00] VITALS: BP 133/70
--- NOTE | 2018-08-28 12:11 | Diagnostic Imaging Report ---
INDICATION: Abdominal pain TECHNIQUE: Multiple, contiguous axial cuts of the abdomen and pelvis are obtained from the lung bases to the ischial tuberosities. Sagittal and coronal reformatted images are available. One or more of the following dose reduction techniques were used: automated exposure control, adjustment of the mA and/or kV according to patient size, use of iterative reconstruction technique. COMPARISON: None FINDINGS: Trace bilateral pleural effusions. Mild to moderate bilateral lower lobe subsegmental atelectasis, cannot exclude superimposed infection. Status post cholecystectomy. The liver and spleen are normal in size and free of mass lesions. The bile ducts and pancreas are normal. The adrenal gland are unremarkable. The kidneys are normal in size and contour. No stones, lesions or hydronephrosis. Status post gastrostomy tube. Descending and sigmoid colon diverticula without diverticulitis. Suprapubic urinary catheter in place. Right lower quadrant peritoneal catheter in place Atherosclerotic vascular disease. Aorta is normal caliber. No adenopathy or extraluminal air. Degenerative changes of the lumbar spine with likely chronic compression deformity of the right lateral L3 vertebral body. IMPRESSION: 1. Gastrostomy tube. Suprapubic urinary catheter in place. 2. Right lower quadrant peritoneal catheter in place. 3. Descending and sigmoid colon diverticula without diverticulitis. 4. Status post cholecystectomy. 5. Trace bilateral pleural effusions with mild to moderate bilateral lower lobe subsegmental atelectasis, cannot exclude superimposed infection. CTDI: 10.75 mGy DLP: 560.09 mGycm
--- NOTE | 2018-08-28 14:04 | Pulmonology Progress Note ---
Assessment/Plan Assessment/Plan Assessment/Plan IMPRESSION: 1. Respiratory failure, acute, improved 2. Sepsis with shock. 3. Dysphagia. 4. G-tube. 5. CVA. 6. Altered mental status. 7. Aspiration pneumonia 8. Severe protein-calorie malnutrition. 9. Diabetes. PLAN continue same respiratory care aspiration precautions antibiotics monitor imaging DVT prophylaxis impression, plan, and exam edited and reviewed in detail care discussed with RN Subjective ROS Limited/Unobtainable: Yes Allergies: Coded Allergies: No Known Allergies (Unverified , 06/17/18) Subjective reviewed care moved to tele off BIPAP Objective Last 24 Hour Vital Signs Date Time Temp Pulse Resp B/P (MAP) Pulse Ox O2 Delivery O2 Flow Rate FiO2 08/26/18 04:30 85 32 97 Full Face 35 08/26/18 04:00 89 08/26/18 04:00 97.3 91 18 146/76 (99) 98 97.3 08/26/18 03:18 84 26 98 Facial 35 08/26/18 01:30 87 24 98 Facial 35 08/26/18 00:00 97.5 84 18 116/67 (83) 98 97.5 08/26/18 00:00 85 08/25/18 22:40 75 32 97 Facial 35 08/25/18 20:26 94 08/25/18 20:00 Bi-pap 08/25/18 20:00 97.0 90 20 137/71 (93) 98 97.0 08/25/18 19:20 Nasal Cannula 2.0 28 08/25/18 19:19 97 Nasal Cannula 2.0 28 08/25/18 16:00 98.4 81 18 158/75 (102) 100 98.4 08/25/18 16:00 Bi-pap 08/25/18 15:33 77 08/25/18 12:00 98.7 92 19 145/76 (99) 96 98.7 08/25/18 12:00 Bi-pap 08/25/18 11:44 88 08/25/18 08:32 83 Intake and Output 08/25/18 08/26/18 19:00 07:00 Intake Total 950.0 ml 65 ml Output Total 1000 ml 800 ml Balance -50.0 ml -735 ml IV Total 110.0 ml Tube Feeding 780 ml 65 ml Other 60 ml Output Urine Total 1000 ml 800 ml # Bowel Movements 2 1 Objective GENERAL: Ill-appearing male, withdrawn, nonverbal. reduced LOC LUNGS: With some rhonchi, moderate air entry, symmetric. CARDIAC: Normal S1, S2. Slightly tachycardic without murmurs, rubs, or gallops. ABDOMEN: Soft, nontender, nondistended. no distention EXTREMITIES: No cyanosis or clubbing. SKIN: noted GENITOURINARY: The patient has suprapubic catheter. NEUROLOGIC: Neurologically withdrawn but does respond to painful stimuli. Microbiology Date/Time Source Procedure Growth Status 08/23/18 18:45 Wound Gram Stain - Final Resulted 08/23/18 18:45 Wound Culture - Preliminary Staphylococcus Aureus Resulted 08/23/18 11:30 Sputum Gram Stain - Final Complete 08/23/18 11:30 Sputum Sputum Culture - Final NORMAL UPPER RESPIRATORY THEO PRESENT Complete Laboratory Tests 08/25/18 10:22: Arterial Blood pH 7.475H, Arterial Blood Partial Pressure CO2 31.4L, Arterial Blood Partial Pressure O2 100.7H, Arterial Blood HCO3 22.6, Arterial Blood Oxygen Saturation 97.4, Arterial Blood Base Excess -0.5, Shawn Test Positive 08/26/18 06:45: White Blood Count [Pending], Red Blood Count [Pending], Hemoglobin [Pending], Hematocrit [Pending], Mean Corpuscular Volume [Pending], Mean Corpuscular Hemoglobin [Pending], Mean Corpuscular Hemoglobin Concent [Pending], Red Cell Distribution Width [Pending], Platelet Count [Pending], Mean Platelet Volume [ Pending], Neutrophils (%) (Auto) [Pending], Lymphocytes (%) (Auto) [Pending], Monocytes (%) (Auto) [Pending], Eosinophils (%) (Auto) [Pending], Basophils (%) (Auto) [Pending], Sodium Level [Pending], Potassium Level [Pending], Chloride Level [Pending], Carbon Dioxide Level [Pending], Blood Urea Nitrogen [Pending], Creatinine [Pending], Estimat Glomerular Filtration Rate [Pending], Glucose Level [Pending], Calcium Level [Pending], Total Bilirubin [Pending], Aspartate Amino Transf (AST/SGOT) [Pending], Alanine Aminotransferase (ALT/SGPT) [Pending] , Alkaline Phosphatase [Pending], Total Protein [Pending], Albumin [Pending], Globulin [Pending] Current Medications Medications (Trade) Dose Ordered Sig/Benjamin Route PRN Reason Start Time Stop Time Status Last Admin Dose Admin Albuterol/ Ipratropium (Albuterol/ Ipratropium) 3 ml Q6HRT PRN HHN Bronchospasm 08/24/18 09:45 08/29/18 09:44 08/24/18 15:18 Aspirin (ASA) 81 mg DAILY GT 08/23/18 09:00 09/22/18 08:59 08/25/18 09:55 Dextrose (Dextrose 50%) 25 ml Q30M PRN IV Hypoglycemia 08/21/18 20:00 09/20/18 19:59 Dextrose (Dextrose 50%) 50 ml Q30M PRN IV Hypoglycemia 08/21/18 20:00 09/20/18 19:59 Heparin Sodium (Porcine) (Heparin 5000 units/ml) 5,000 units EVERY 12 HOURS SUBQ 08/21/18 21:00 09/20/18 20:59 08/25/18 21:17 Insulin Aspart (NovoLOG) EVERY 6 HOURS SUBQ 08/23/18 12:00 09/22/18 11:59 08/26/18 06:23 Lansoprazole (Prevacid) 30 mg DAILY GT 08/25/18 09:00 09/24/18 08:59 08/25/18 09:55 Levothyroxine Sodium (Synthroid) 125 mcg DAILY@0630 ORAL 08/24/18 06:30 09/23/18 06:29 08/26/18 06:41 Metronidazole (Flagyl) 500 mg Q8HR ORAL 08/25/18 14:00 09/01/18 13:59 08/26/18 06:23 Piperacillin Sod/ Tazobactam Sod 3.375 gm/Dextrose 110 ml @ 27.5 mls/hr EVERY 8 HOURS IVPB 08/25/18 14:00 08/30/18 13:59 08/26/18 06:23 Subjective ROS Limited/Unobtainable: No Allergies: Coded Allergies: No Known Allergies (Unverified , 06/17/18) Objective Last 24 Hour Vital Signs Date Time Temp Pulse Resp B/P (MAP) Pulse Ox O2 Delivery O2 Flow Rate FiO2 08/28/18 12:00 97.3 75 18 133/70 (91) 95 97.3 08/28/18 09:00 Nasal Cannula 2.0 08/28/18 08:00 98.0 62 18 138/74 (95) 100 98.0 08/28/18 08:00 70 08/28/18 04:00 98.4 51 19 130/66 (87) 100 98.4 08/28/18 04:00 59 08/28/18 03:41 83 26 99 Facial 35 08/28/18 01:24 79 17 99 Facial 35 08/28/18 00:00 52 08/28/18 00:00 97.2 51 16 142/68 (92) 100 97.2 08/27/18 22:21 81 15 98 Facial 35 08/27/18 21:00 Nasal Cannula 2.0 08/27/18 20:00 61 08/27/18 20:00 97.7 56 20 106/54 (71) 100 97.7 08/27/18 19:55 Nasal Cannula 2.0 28 08/27/18 19:55 96 Nasal Cannula 2.0 28 08/27/18 16:00 75 08/27/18 16:00 97.1 71 20 135/61 (85) 99 97.1 Intake and Output 08/27/18 08/28/18 19:00 07:00 Output Total 650 ml 325 ml Balance -650 ml -325 ml Output Urine Total 650 ml 325 ml # Bowel Movements 2 Microbiology Date/Time Source Procedure Growth Status 08/25/18 17:00 Stool Clostridium difficile Toxin Assay - Final Complete Laboratory Tests 08/28/18 06:15: Sodium Level 136, Potassium Level 3.6, Chloride Level 103, Carbon Dioxide Level 26, Anion Gap 7, Blood Urea Nitrogen 13, Creatinine 0.7, Estimat Glomerular Filtration Rate , Glucose Level 125H, Calcium Level 8.1L, Magnesium Level 1.6L, Total Bilirubin 0.2, Aspartate Amino Transf (AST/SGOT) 21, Alanine Aminotransferase (ALT/SGPT) 13, Alkaline Phosphatase 68, Pro-B-Type Natriuretic Peptide 4468H, Total Protein 6.0L, Albumin 1.5L, Globulin 4.5, Albumin/Globulin Ratio 0.3L 08/28/18 08:45: Stool Occult Blood [Pending] 08/28/18 11:15: White Blood Count 7.9, Red Blood Count 3.05L, Hemoglobin 9.3L, Hematocrit 28.2L , Mean Corpuscular Volume 92, Mean Corpuscular Hemoglobin 30.4, Mean Corpuscular Hemoglobin Concent 32.9, Red Cell Distribution Width 14.7, Platelet Count 256, Mean Platelet Volume 5.4L, Neutrophils (%) (Auto) 70.8, Lymphocytes ( %) (Auto) 15.2L, Monocytes (%) (Auto) 6.2, Eosinophils (%) (Auto) 7.0H, Basophils (%) (Auto) 0.8 Current Medications Medications (Trade) Dose Ordered Sig/Benjamin Route PRN Reason Start Time Stop Time Status Last Admin Dose Admin Acetaminophen (Tylenol) 650 mg Q4H PRN ORAL Mild Pain/Temp > 100.5 08/28/18 09:00 09/27/18 08:59 08/28/18 10:16 Albuterol/ Ipratropium (Albuterol/ Ipratropium) 3 ml Q6HRT PRN HHN Bronchospasm 08/24/18 09:45 08/29/18 09:44 08/24/18 15:18 Aspirin (ASA) 81 mg DAILY GT 08/23/18 09:00 09/22/18 08:59 08/26/18 08:29 Dextrose (Dextrose 50%) 25 ml Q30M PRN IV Hypoglycemia 08/21/18 20:00 09/20/18 19:59 Dextrose (Dextrose 50%) 50 ml Q30M PRN IV Hypoglycemia 08/21/18 20:00 09/20/18 19:59 Heparin Sodium (Porcine) (Heparin 5000 units/ml) 5,000 units EVERY 12 HOURS SUBQ 08/21/18 21:00 09/20/18 20:59 08/26/18 21:45 Insulin Aspart (NovoLOG) EVERY 6 HOURS SUBQ 08/23/18 12:00 09/22/18 11:59 08/27/18 18:54 Lansoprazole (Prevacid) 30 mg DAILY GT 08/25/18 09:00 09/24/18 08:59 08/28/18 10:14 Levothyroxine Sodium (Synthroid) 125 mcg DAILY@0630 ORAL 08/24/18 06:30 09/23/18 06:29 08/28/18 06:27 Bryon Carlson MD Aug 28, 2018 14:04
--- NOTE | 2018-08-28 15:50 | General Progress Note ---
Assessment/Plan Problem List: (1) UTI (urinary tract infection) ICD Codes: N39.0 - Urinary tract infection, site not specified SNOMED: 74781703 Qualifiers: Qualified Codes: T83.511A - Infection and inflammatory reaction due to indwelling urethral catheter, initial encounter; N39.0 - Urinary tract infection , site not specified (2) Severe sepsis ICD Codes: A41.9 - Sepsis, unspecified organism; R65.20 - Severe sepsis without septic shock SNOMED: 20338867 (3) NSTEMI (non-ST elevated myocardial infarction) ICD Codes: I21.4 - Non-ST elevation (NSTEMI) myocardial infarction SNOMED: 892673457 (4) Right lower lobe pneumonia ICD Codes: J18.1 - Lobar pneumonia, unspecified organism SNOMED: 347045155 Qualifiers: Qualified Codes: J18.1 - Lobar pneumonia, unspecified organism (5) Elevated lactic acid level ICD Codes: R79.89 - Other specified abnormal findings of blood chemistry SNOMED: 2517652 Status: stable, progressing Assessment/Plan iv abx follow up cultures bipap as needed resp rx ct abd/pelvis surgery eval gt feeds follow up am labs duplex legs dvt/stress ulcer prophlaxis skin care Subjective ROS Limited/Unobtainable: No Constitutional: Reports: malaise, weakness HEENT: Reports: no symptoms Cardiovascular: Reports: no symptoms Respiratory: Reports: no symptoms Gastrointestinal/Abdominal: Reports: abdominal pain Genitourinary: Reports: no symptoms Neurologic/Psychiatric: Reports: pre-existing deficit Endocrine: Reports: no symptoms Hematologic/Lymphatic: Reports: anemia Allergies: Coded Allergies: No Known Allergies (Unverified , 06/17/18) All Systems: reviewed and negative except above Subjective no events, c/o abd pain. staff noted protruding metallic FB from right LQ. Objective Last 24 Hour Vital Signs Date Time Temp Pulse Resp B/P (MAP) Pulse Ox O2 Delivery O2 Flow Rate FiO2 08/28/18 12:00 70 08/28/18 12:00 97.3 75 18 133/70 (91) 95 97.3 08/28/18 09:00 Nasal Cannula 2.0 08/28/18 08:00 98.0 62 18 138/74 (95) 100 98.0 08/28/18 08:00 70 08/28/18 04:00 98.4 51 19 130/66 (87) 100 98.4 08/28/18 04:00 59 08/28/18 03:41 83 26 99 Facial 35 08/28/18 01:24 79 17 99 Facial 35 08/28/18 00:00 52 08/28/18 00:00 97.2 51 16 142/68 (92) 100 97.2 08/27/18 22:21 81 15 98 Facial 35 08/27/18 21:00 Nasal Cannula 2.0 08/27/18 20:00 61 08/27/18 20:00 97.7 56 20 106/54 (71) 100 97.7 08/27/18 19:55 Nasal Cannula 2.0 28 08/27/18 19:55 96 Nasal Cannula 2.0 28 08/27/18 16:00 75 08/27/18 16:00 97.1 71 20 135/61 (85) 99 97.1 Intake and Output 08/27/18 08/28/18 19:00 07:00 Output Total 650 ml 325 ml Balance -650 ml -325 ml Output Urine Total 650 ml 325 ml # Bowel Movements 2 Laboratory Tests 08/28/18 06:15: Sodium Level 136, Potassium Level 3.6, Chloride Level 103, Carbon Dioxide Level 26, Anion Gap 7, Blood Urea Nitrogen 13, Creatinine 0.7, Estimat Glomerular Filtration Rate , Glucose Level 125H, Calcium Level 8.1L, Magnesium Level 1.6L, Total Bilirubin 0.2, Aspartate Amino Transf (AST/SGOT) 21, Alanine Aminotransferase (ALT/SGPT) 13, Alkaline Phosphatase 68, Pro-B-Type Natriuretic Peptide 4468H, Total Protein 6.0L, Albumin 1.5L, Globulin 4.5, Albumin/Globulin Ratio 0.3L 08/28/18 08:45: Stool Occult Blood Positive 08/28/18 11:15: White Blood Count 7.9, Red Blood Count 3.05L, Hemoglobin 9.3L, Hematocrit 28.2L , Mean Corpuscular Volume 92, Mean Corpuscular Hemoglobin 30.4, Mean Corpuscular Hemoglobin Concent 32.9, Red Cell Distribution Width 14.7, Platelet Count 256, Mean Platelet Volume 5.4L, Neutrophils (%) (Auto) 70.8, Lymphocytes ( %) (Auto) 15.2L, Monocytes (%) (Auto) 6.2, Eosinophils (%) (Auto) 7.0H, Basophils (%) (Auto) 0.8 Height (Feet): 5 Height (Inches): 6.00 Weight (Pounds): 145 Objective General Appearance: WD/WN, alert Neck: supple Cardiovascular: normal rate, regular rhythm Respiratory/Chest: chest wall non-tender, lungs with farhat rhonchi Abdomen: normal bowel sounds, non tender, soft, no organomegaly Neurologic: unresponsive, aphasia Michael Zuniga MD Aug 28, 2018 15:50
[2018-08-28 16:00] VITALS: BP 137/88
[2018-08-28 20:00] VITALS: BP 154/60
[2018-08-29] VITALS: BP 130/88
--- NOTE | 2018-08-29 | Progress Note ---
CARDIOLOGY PROGRESS NOTE DATE: 08/28/2018 SUBJECTIVE: The patient has abdominal pain. Staff apparently noted some foreign body from the right lower quadrant. She has not had any nausea or vomiting. No congestion. No shortness of breath. Monitored rhythm is sinus with occasional atrial ectopics. OBJECTIVE: VITAL SIGNS: Blood pressure 130/66, pulse 59, and respirations 19. Heart rate range 51 to 82. Oxygen saturation 99% on 2 liters. LUNGS: Coarse breath sounds. HEART: Regular rate. Normal S1, S2. ABDOMEN: Soft. Mildly tender in the right lower quadrant. No guarding or rebound. EXTREMITIES: No edema. LABORATORY DATA: White count 7.9, hemoglobin 9.3. Stool occult blood is positive. Potassium 3.6, BUN 13, and creatinine 0.7. Magnesium 1.6. Pro-natriuretic peptide has decreased to 4400 and albumin is 1.5. Abdominal CT scan reveals gastrostomy tube. Suprapubic catheter, peritoneal catheter in the right lower quadrant. Sigmoid colon diverticula, prior cholecystectomy. Atelectasis in the lower lobes of the lungs. IMPRESSION: 1. Multiple sources of infection. 2. Recovered shock due to sepsis. 3. No signs of acute congestive heart failure. 4. Debility due to cerebrovascular disease. 5. Indwelling G-tube, suprapubic urinary catheter, and peritoneal catheter. PLAN: 1. Plan of care reviewed. Question removal of peritoneal catheter. 2. Maintain current cardiovascular regimen without change. 3. DVT prophylaxis. 4. Antimicrobial therapy reviewed. Bryon Ramirez M.D. DR: ZABRINA JOB#: [id number] CC:
[2018-08-29 04:00] VITALS: BP 140/70
[2018-08-29] MEDS: NovoLOG Insulin Flexpen SUBQ SCH ×3 (05:47→17:19)
[2018-08-29] MEDS: Levothyroxine 125mcg tab ORAL SCH (05:58)
[2018-08-29 08:00] VITALS: BP 134/61
[2018-08-29] MEDS: Aspirin Baby 81mg GT SCH (08:31)
[2018-08-29] MEDS: Heparin 5000 units/ml inj SUBQ SCH ×2 (08:32→20:45)
--- NOTE | 2018-08-29 09:30 | Urology Progress Note ---
Assessment/Plan Assessment/Plan 1. Urinary retention with chronic suprapubic tube. 2. Benign prostatic hypertrophy history. 3. Neurogenic bladder. 4. Urinary tract infection and colonization. 5. Hematuria. 6. Proteinuria. keep SP tube, last exchanged 08/23 hand irrigate PRN cont with abx as ordered cysto later peritoneal cath? surg eval Subjective Allergies: Coded Allergies: No Known Allergies (Unverified , 06/17/18) Subjective all noted, looks comfortable Objective Last 24 Hour Vital Signs Date Time Temp Pulse Resp B/P (MAP) Pulse Ox O2 Delivery O2 Flow Rate FiO2 08/29/18 08:22 Nasal Cannula 2.0 28 08/29/18 08:22 98 Nasal Cannula 2.0 28 08/29/18 04:51 60 19 99 Facial 35 08/29/18 04:11 59 08/29/18 04:00 98.0 59 18 140/70 (93) 96 98.0 08/29/18 03:29 62 21 99 Facial 35 08/29/18 01:17 78 22 99 Facial 35 08/29/18 00:00 97.7 71 19 130/88 (102) 98 97.7 08/28/18 23:51 67 08/28/18 23:24 81 25 98 Facial 35 08/28/18 23:23 95 Nasal Cannula 2.0 28 08/28/18 23:23 Nasal Cannula 2.0 28 08/28/18 21:00 Nasal Cannula 2.0 08/28/18 20:00 97.5 70 19 154/60 (91) 95 97.5 08/28/18 19:01 58 08/28/18 16:00 68 08/28/18 16:00 97.0 71 18 137/88 (104) 91 97.0 08/28/18 12:00 70 08/28/18 12:00 97.3 75 18 133/70 (91) 95 97.3 Intake and Output 08/28/18 08/29/18 19:00 07:00 Intake Total 380 ml Output Total 600 ml Balance -600 ml 380 ml Intake Free Water 180 ml Tube Feeding 200 ml Output Urine Total 600 ml # Bowel Movements 1 Microbiology Date/Time Source Procedure Growth Status 08/21/18 15:15 Blood Blood Culture - Final NO GROWTH AFTER 5 DAYS Complete 08/23/18 18:45 Wound Gram Stain - Final Complete 08/23/18 18:45 Wound Culture - Final Staphylococcus Aureus - Mrsa Complete 08/23/18 11:30 Sputum Gram Stain - Final Complete 08/23/18 11:30 Sputum Sputum Culture - Final NORMAL UPPER RESPIRATORY THEO PRESENT Complete 08/25/18 17:00 Stool Clostridium difficile Toxin Assay - Final Complete 08/21/18 15:15 Urine,Clean Catch Urine Culture - Final Providencia Stuartii Complete 08/21/18 17:07 Rectum - Final NO CARBAPENEM-RESISTANT ENTEROBACTERI... Complete Current Medications Medications (Trade) Dose Ordered Sig/Benjamin Route PRN Reason Start Time Stop Time Status Last Admin Dose Admin Acetaminophen (Tylenol) 650 mg Q4H PRN ORAL Mild Pain/Temp > 100.5 08/28/18 09:00 09/27/18 08:59 08/28/18 10:16 Albuterol/ Ipratropium (Albuterol/ Ipratropium) 3 ml Q6HRT PRN HHN Bronchospasm 08/24/18 09:45 08/29/18 09:44 08/24/18 15:18 Aspirin (ASA) 81 mg DAILY GT 08/23/18 09:00 09/22/18 08:59 08/29/18 08:31 Dextrose (Dextrose 50%) 25 ml Q30M PRN IV Hypoglycemia 08/21/18 20:00 09/20/18 19:59 Dextrose (Dextrose 50%) 50 ml Q30M PRN IV Hypoglycemia 08/21/18 20:00 09/20/18 19:59 Heparin Sodium (Porcine) (Heparin 5000 units/ml) 5,000 units EVERY 12 HOURS SUBQ 08/21/18 21:00 09/20/18 20:59 08/29/18 08:32 Insulin Aspart (NovoLOG) EVERY 6 HOURS SUBQ 08/23/18 12:00 09/22/18 11:59 08/27/18 18:54 Lansoprazole (Prevacid) 30 mg DAILY GT 08/25/18 09:00 09/24/18 08:59 08/29/18 08:31 Levothyroxine Sodium (Synthroid) 125 mcg DAILY@0630 ORAL 08/24/18 06:30 09/23/18 06:29 08/29/18 05:58 Laboratory Tests 08/28/18 11:15: White Blood Count 7.9, Red Blood Count 3.05L, Hemoglobin 9.3L, Hematocrit 28.2L , Mean Corpuscular Volume 92, Mean Corpuscular Hemoglobin 30.4, Mean Corpuscular Hemoglobin Concent 32.9, Red Cell Distribution Width 14.7, Platelet Count 256, Mean Platelet Volume 5.4L, Neutrophils (%) (Auto) 70.8, Lymphocytes ( %) (Auto) 15.2L, Monocytes (%) (Auto) 6.2, Eosinophils (%) (Auto) 7.0H, Basophils (%) (Auto) 0.8 Height (Feet): 5 Height (Inches): 6.00 Weight (Pounds): 145 Objective exam stable, urine clearing ALEJANDRO COLLIER Aug 29, 2018 09:30
--- NOTE | 2018-08-29 11:31 | Pulmonology Progress Note ---
Assessment/Plan Assessment/Plan IMPRESSION: 1. Respiratory failure, resolved 2. Sepsis with shock. improved 3. Dysphagia. 4. G-tube. 5. CVA. 6. Altered mental status. 7. Aspiration pneumonia 8. Severe protein-calorie malnutrition. 9. Diabetes. PLAN respiratory care aspiration precautions as is antibiotics noted imaging noted; repeat close follow up DVT prophylaxis impression, plan, and exam edited and reviewed in detail care discussed with RN Subjective ROS Limited/Unobtainable: Yes Allergies: Coded Allergies: No Known Allergies (Unverified , 06/17/18) Subjective reviewed care off BIPAP and stable Objective Last 24 Hour Vital Signs Date Time Temp Pulse Resp B/P (MAP) Pulse Ox O2 Delivery O2 Flow Rate FiO2 08/29/18 09:00 Nasal Cannula 2.0 08/29/18 08:22 Nasal Cannula 2.0 28 08/29/18 08:22 98 Nasal Cannula 2.0 28 08/29/18 08:00 96.4 56 16 134/61 (85) 99 96.4 08/29/18 04:51 60 19 99 Facial 35 08/29/18 04:11 59 08/29/18 04:00 98.0 59 18 140/70 (93) 96 98.0 08/29/18 03:29 62 21 99 Facial 35 08/29/18 01:17 78 22 99 Facial 35 08/29/18 00:00 97.7 71 19 130/88 (102) 98 97.7 08/28/18 23:51 67 08/28/18 23:24 81 25 98 Facial 35 08/28/18 23:23 95 Nasal Cannula 2.0 28 08/28/18 23:23 Nasal Cannula 2.0 28 08/28/18 21:00 Nasal Cannula 2.0 08/28/18 20:00 97.5 70 19 154/60 (91) 95 97.5 08/28/18 19:01 58 08/28/18 16:00 68 08/28/18 16:00 97.0 71 18 137/88 (104) 91 97.0 08/28/18 12:00 70 08/28/18 12:00 97.3 75 18 133/70 (91) 95 97.3 Intake and Output 08/28/18 08/29/18 19:00 07:00 Intake Total 380 ml Output Total 600 ml Balance -600 ml 380 ml Intake Free Water 180 ml Tube Feeding 200 ml Output Urine Total 600 ml # Bowel Movements 1 Objective GENERAL: Ill-appearing male, withdrawn, nonverbal. ALOC LUNGS: mild rhonchi, moderate air entry, symmetric. CARDIAC: Normal S1, S2. RRR without murmurs, rubs, or gallops. ABDOMEN: Soft, nontender, nondistended. no distention EXTREMITIES: No cyanosis or clubbing. no edema SKIN: noted GENITOURINARY: The patient has suprapubic catheter. NEUROLOGIC: Neurologically overall same Current Medications Medications (Trade) Dose Ordered Sig/Benjamin Route PRN Reason Start Time Stop Time Status Last Admin Dose Admin Acetaminophen (Tylenol) 650 mg Q4H PRN ORAL Mild Pain/Temp > 100.5 08/28/18 09:00 09/27/18 08:59 08/28/18 10:16 Aspirin (ASA) 81 mg DAILY GT 08/23/18 09:00 09/22/18 08:59 08/29/18 08:31 Dextrose (Dextrose 50%) 25 ml Q30M PRN IV Hypoglycemia 08/21/18 20:00 09/20/18 19:59 Dextrose (Dextrose 50%) 50 ml Q30M PRN IV Hypoglycemia 08/21/18 20:00 09/20/18 19:59 Heparin Sodium (Porcine) (Heparin 5000 units/ml) 5,000 units EVERY 12 HOURS SUBQ 08/21/18 21:00 09/20/18 20:59 08/29/18 08:32 Insulin Aspart (NovoLOG) EVERY 6 HOURS SUBQ 08/23/18 12:00 09/22/18 11:59 08/27/18 18:54 Lansoprazole (Prevacid) 30 mg DAILY GT 08/25/18 09:00 09/24/18 08:59 08/29/18 08:31 Levothyroxine Sodium (Synthroid) 125 mcg DAILY@0630 ORAL 08/24/18 06:30 09/23/18 06:29 08/29/18 05:58 James Langston MD Aug 29, 2018 11:31
--- NOTE | 2018-08-29 11:34 | Infectious Diseases Prog Note ---
Assessment/Plan Assessment/Plan antibiotics : none A 1. providencia UTI s/p rx 2. pneumonia s/p s/p rx 3. leucocytosis resolved 4. diabetes mellitus 5. hypertension 6. dementia p 1. continue off antibiotics Subjective ROS Limited/Unobtainable: Yes Allergies: Coded Allergies: No Known Allergies (Unverified , 06/17/18) Objective Vital Signs Last 24 Hour Vital Signs Date Time Temp Pulse Resp B/P (MAP) Pulse Ox O2 Delivery O2 Flow Rate FiO2 08/29/18 09:00 Nasal Cannula 2.0 08/29/18 08:22 Nasal Cannula 2.0 28 08/29/18 08:22 98 Nasal Cannula 2.0 28 08/29/18 08:00 70 08/29/18 08:00 96.4 56 16 134/61 (85) 99 96.4 08/29/18 04:51 60 19 99 Facial 35 08/29/18 04:11 59 08/29/18 04:00 98.0 59 18 140/70 (93) 96 98.0 08/29/18 03:29 62 21 99 Facial 35 08/29/18 01:17 78 22 99 Facial 35 08/29/18 00:00 97.7 71 19 130/88 (102) 98 97.7 08/28/18 23:51 67 08/28/18 23:24 81 25 98 Facial 35 08/28/18 23:23 95 Nasal Cannula 2.0 28 08/28/18 23:23 Nasal Cannula 2.0 28 08/28/18 21:00 Nasal Cannula 2.0 08/28/18 20:00 97.5 70 19 154/60 (91) 95 97.5 08/28/18 19:01 58 08/28/18 16:00 68 08/28/18 16:00 97.0 71 18 137/88 (104) 91 97.0 08/28/18 12:00 70 08/28/18 12:00 97.3 75 18 133/70 (91) 95 97.3 Height (Feet): 5 Height (Inches): 6.00 Weight (Pounds): 145 Respiratory/Chest: lungs clear Cardiovascular: normal rate, regular rhythm, no gallop/murmur Abdomen: soft, non tender, other - GT, SPC Extremities: no edema Current Medications Medications (Trade) Dose Ordered Sig/Benjamin Route PRN Reason Start Time Stop Time Status Last Admin Dose Admin Acetaminophen (Tylenol) 650 mg Q4H PRN ORAL Mild Pain/Temp > 100.5 08/28/18 09:00 09/27/18 08:59 08/28/18 10:16 Aspirin (ASA) 81 mg DAILY GT 08/23/18 09:00 09/22/18 08:59 08/29/18 08:31 Dextrose (Dextrose 50%) 25 ml Q30M PRN IV Hypoglycemia 08/21/18 20:00 09/20/18 19:59 Dextrose (Dextrose 50%) 50 ml Q30M PRN IV Hypoglycemia 08/21/18 20:00 09/20/18 19:59 Heparin Sodium (Porcine) (Heparin 5000 units/ml) 5,000 units EVERY 12 HOURS SUBQ 08/21/18 21:00 09/20/18 20:59 08/29/18 08:32 Insulin Aspart (NovoLOG) EVERY 6 HOURS SUBQ 08/23/18 12:00 09/22/18 11:59 08/27/18 18:54 Lansoprazole (Prevacid) 30 mg DAILY GT 08/25/18 09:00 09/24/18 08:59 08/29/18 08:31 Levothyroxine Sodium (Synthroid) 125 mcg DAILY@0630 ORAL 08/24/18 06:30 09/23/18 06:29 08/29/18 05:58 FAZAL PORRAS Aug 29, 2018 11:34
[2018-08-29 12:00] VITALS: BP 121/58
--- NOTE | 2018-08-29 14:07 | General Progress Note ---
Assessment/Plan Problem List: (1) UTI (urinary tract infection) ICD Codes: N39.0 - Urinary tract infection, site not specified SNOMED: 98180010 Qualifiers: Qualified Codes: T83.511A - Infection and inflammatory reaction due to indwelling urethral catheter, initial encounter; N39.0 - Urinary tract infection , site not specified (2) Severe sepsis ICD Codes: A41.9 - Sepsis, unspecified organism; R65.20 - Severe sepsis without septic shock SNOMED: 80396164 (3) NSTEMI (non-ST elevated myocardial infarction) ICD Codes: I21.4 - Non-ST elevation (NSTEMI) myocardial infarction SNOMED: 150472838 (4) Right lower lobe pneumonia ICD Codes: J18.1 - Lobar pneumonia, unspecified organism SNOMED: 280068190 Qualifiers: Qualified Codes: J18.1 - Lobar pneumonia, unspecified organism (5) Elevated lactic acid level ICD Codes: R79.89 - Other specified abnormal findings of blood chemistry SNOMED: 6157457 Status: stable, progressing Assessment/Plan iv abx follow up cultures bipap as needed resp rx ct abd/pelvis reviewed surgery eval called gt feeds follow up am labs duplex legs dvt/stress ulcer prophlaxis skin care Subjective ROS Limited/Unobtainable: No Constitutional: Reports: malaise, weakness HEENT: Reports: no symptoms Cardiovascular: Reports: no symptoms Respiratory: Reports: cough Gastrointestinal/Abdominal: Reports: abdominal pain Genitourinary: Reports: no symptoms Neurologic/Psychiatric: Reports: pre-existing deficit Endocrine: Reports: no symptoms Hematologic/Lymphatic: Reports: anemia Allergies: Coded Allergies: No Known Allergies (Unverified , 06/17/18) All Systems: reviewed and negative except above Subjective no events. ?abd pain, controlled with tylenol. CT noted- no reports of FB. Objective Last 24 Hour Vital Signs Date Time Temp Pulse Resp B/P (MAP) Pulse Ox O2 Delivery O2 Flow Rate FiO2 08/29/18 12:00 96.7 80 18 121/58 (79) 95 96.7 08/29/18 12:00 78 08/29/18 09:00 Nasal Cannula 2.0 08/29/18 08:22 Nasal Cannula 2.0 28 08/29/18 08:22 98 Nasal Cannula 2.0 28 08/29/18 08:00 70 08/29/18 08:00 96.4 56 16 134/61 (85) 99 96.4 08/29/18 04:51 60 19 99 Facial 35 08/29/18 04:11 59 08/29/18 04:00 98.0 59 18 140/70 (93) 96 98.0 08/29/18 03:29 62 21 99 Facial 35 08/29/18 01:17 78 22 99 Facial 35 08/29/18 00:00 97.7 71 19 130/88 (102) 98 97.7 08/28/18 23:51 67 08/28/18 23:24 81 25 98 Facial 35 08/28/18 23:23 95 Nasal Cannula 2.0 28 08/28/18 23:23 Nasal Cannula 2.0 28 08/28/18 21:00 Nasal Cannula 2.0 08/28/18 20:00 97.5 70 19 154/60 (91) 95 97.5 08/28/18 19:01 58 08/28/18 16:00 68 08/28/18 16:00 97.0 71 18 137/88 (104) 91 97.0 Intake and Output 08/28/18 08/29/18 19:00 07:00 Intake Total 380 ml Output Total 600 ml Balance -600 ml 380 ml Intake Free Water 180 ml Tube Feeding 200 ml Output Urine Total 600 ml # Bowel Movements 1 Height (Feet): 5 Height (Inches): 6.00 Weight (Pounds): 145 Objective General Appearance: WD/WN, alert Neck: supple Cardiovascular: normal rate, regular rhythm Respiratory/Chest: chest wall non-tender, lungs with farhat rhonchi Abdomen: normal bowel sounds, non tender, soft, no organomegaly Neurologic: unresponsive, aphasia Michael Zuniga MD Aug 29, 2018 14:07
--- NOTE | 2018-08-29 15:35 | Consultation ---
History of Present Illness General Date patient seen: Aug 29, 2018 Chief Complaint: Altered Level of Consciousness Reason for Consultation: sacral decubitus ulcer Present Illness HPI 83 year old male with multiple medical comorbidities long term resident unresponsive with desaturation admitted for medical care and management. upon admission noted to have multiple wounds on lower extremities and sacral / back. Surgery called to evaluate and assist with wound care / management. patient seen, chart reviewed, patient examined. notes noted. wounds present upon admission and will be cared for during hospital stay. Allergies: Coded Allergies: No Known Allergies (Unverified , 06/17/18) Medication History Scheduled Amino Acids/Protein Hydrolys (Pro-Stat Liquid), 30 ML GT TWICE A DAY, (Reported) Ascorbic Acid* (Vitamin C*), 500 MG GT DAILY, (Reported) Aspirin* (Aspir 81*), 81 MG GT DAILY, (Reported) Atorvastatin Calcium* (Atorvastatin Calcium*), 20 MG GT BEDTIME, (Reported) Cran/Vitc/Mannose/Inulin/Brom (Uti-Stat Liquid), 3,875 MG GT DAILY, (Reported) Docusate Sodium* (Colace*), 100 MG GT DAILY, (Reported) Enalapril Maleate* (Enalapril Maleate*), 10 MG GT EVERY 12 HOURS, (Reported) Famotidine (Famotidine), 20 MG GT DAILY, (Reported) Gabapentin* (Gabapentin*), 300 MG GT THREE TIMES A DAY, (Reported) Levetiracetam (Keppra), 750 MG GT BID, (Reported) Levothyroxine Sodium* (Levothyroxine Sodium*), 125 MCG GT DAILY, (Reported) Memantine Hcl* (Namenda*), 5 MG GT DAILY, (Reported) Metformin Hcl* (Metformin Hcl*), 500 MG GT TWICE A DAY, (Reported) Multivitamin With Minerals (Multivitamins With Minerals*), 1 TAB GT DAILY, ( Reported) Zinc Sulfate (Zinc Sulfate*), 220 MG GT DAILY, (Reported) Scheduled PRN Acetaminophen* (Tylenol Extra Strength*), 1,000 MG ORAL Q4HR PRN for Moderate Pain (Pain Scale 4-6), (Reported) Acetaminophen* (Acetaminophen 325MG Tablet*), 650 MG ORAL Q4H PRN for Mild Pain/ Temp > 100.5, (Reported) Bisacodyl (Dulcolax), 10 MG RC DAILY PRN for Constipation, (Reported) Magnesium Hydroxide* (Milk Of Magnesia*), 30 ML GT QHS PRN for Constipation, ( Reported) Na Phos,M-B/Na Phos,Di-Ba* (Fleet Enema*), 133 ML RECTAL QOD PRN for Constipation, (Reported) Patient History Limited by: medical condition History Provided By: Medical Record, PMD Healthcare decision maker Resuscitation status Do Not Resuscitate Advanced Directive on File No Past Medical/Surgical History Past Medical/Surgical History: (1) Decubitus ulcer of sacral area (2) UTI (urinary tract infection) (3) Severe sepsis (4) NSTEMI (non-ST elevated myocardial infarction) (5) Right lower lobe pneumonia (6) Elevated lactic acid level Review of Systems All Other Systems: negative except mentioned in HPI ROS Narrative cannot obtain given medical condition Physical Exam General Appearance: no apparent distress Lines, tubes and drains: other HEENT: mucous membranes moist, other Neck: other Respiratory/Chest: other Cardiovascular/Chest: normal rate Abdomen: soft, no organomegaly, no mass Extremities: other - see photos Skin Exam: other - see photos Last 24 Hour Vital Signs Date Time Temp Pulse Resp B/P (MAP) Pulse Ox O2 Delivery O2 Flow Rate FiO2 08/29/18 12:00 96.7 80 18 121/58 (79) 95 96.7 08/29/18 12:00 78 08/29/18 09:00 Nasal Cannula 2.0 08/29/18 08:22 Nasal Cannula 2.0 28 08/29/18 08:22 98 Nasal Cannula 2.0 28 08/29/18 08:00 70 08/29/18 08:00 96.4 56 16 134/61 (85) 99 96.4 08/29/18 04:51 60 19 99 Facial 35 08/29/18 04:11 59 08/29/18 04:00 98.0 59 18 140/70 (93) 96 98.0 08/29/18 03:29 62 21 99 Facial 35 08/29/18 01:17 78 22 99 Facial 35 08/29/18 00:00 97.7 71 19 130/88 (102) 98 97.7 08/28/18 23:51 67 08/28/18 23:24 81 25 98 Facial 35 08/28/18 23:23 95 Nasal Cannula 2.0 28 08/28/18 23:23 Nasal Cannula 2.0 28 08/28/18 21:00 Nasal Cannula 2.0 08/28/18 20:00 97.5 70 19 154/60 (91) 95 97.5 08/28/18 19:01 58 08/28/18 16:00 68 08/28/18 16:00 97.0 71 18 137/88 (104) 91 97.0 Intake and Output 08/28/18 08/29/18 19:00 07:00 Intake Total 380 ml Output Total 600 ml Balance -600 ml 380 ml Intake Free Water 180 ml Tube Feeding 200 ml Output Urine Total 600 ml # Bowel Movements 1 Height (Feet): 5 Height (Inches): 6.00 Weight (Pounds): 145 Medications Current Medications Medications (Trade) Dose Ordered Sig/Benjamin Route PRN Reason Start Time Stop Time Status Last Admin Dose Admin Acetaminophen (Tylenol) 650 mg Q4H PRN ORAL Mild Pain/Temp > 100.5 08/28/18 09:00 09/27/18 08:59 08/28/18 10:16 Aspirin (ASA) 81 mg DAILY GT 08/23/18 09:00 09/22/18 08:59 08/29/18 08:31 Dextrose (Dextrose 50%) 25 ml Q30M PRN IV Hypoglycemia 08/21/18 20:00 09/20/18 19:59 Dextrose (Dextrose 50%) 50 ml Q30M PRN IV Hypoglycemia 08/21/18 20:00 09/20/18 19:59 Heparin Sodium (Porcine) (Heparin 5000 units/ml) 5,000 units EVERY 12 HOURS SUBQ 08/21/18 21:00 09/20/18 20:59 08/29/18 08:32 Insulin Aspart (NovoLOG) EVERY 6 HOURS SUBQ 08/23/18 12:00 09/22/18 11:59 08/29/18 12:56 Lansoprazole (Prevacid) 30 mg DAILY GT 08/25/18 09:00 09/24/18 08:59 08/29/18 08:31 Levothyroxine Sodium (Synthroid) 125 mcg DAILY@0630 ORAL 08/24/18 06:30 09/23/18 06:29 10/8/18 05:58 Assessment/Plan Problem List: (1) Decubitus ulcer of sacral area Assessment & Plan: Partial thickness wounds buttocks (L)4cm x (W)4.5cm wound bed viable with shearing periwound. Partial thickness wound upper R buttocks ,wound bed viable with shearing and loose skin periwound. Stable necrosis medial R heel (L)3cm x (W)3cm. Periwound without erythema or induration. Full thickness wound dorsum R 2nd metatarsal (L)2cm x (W)1.8cm x (D)0.5cm .Wound oozing small amt purulent exudate. Tx Plan: Surface support mattress . Reposition at least every 2hours or as tolerated. Off-load heels with pillow. Moisture Barrier to buttocks Q shift and prn. Appreciate Podiatry input for heel and metatarsal wound ICD Codes: L89.159 - Pressure ulcer of sacral region, unspecified stage SNOMED: 407553296 Qualifiers: Qualified Codes: L89.153 - Pressure ulcer of sacral region, stage 3 Ezequiel Hayes Aug 29, 2018 15:35
[2018-08-29 16:00] VITALS: BP 139/69
[2018-08-29 20:00] VITALS: BP 137/69
[2018-08-29] MEDS ORDERED: Morphine Sulfate 2mg/ml Inj IVP PRN (20:54)
[2018-08-29] MEDS ORDERED: Norco 5mg/325mg tab ORAL PRN (23:30)
[2018-08-30] VITALS: BP 157/73
[2018-08-30] MEDS: NovoLOG Insulin Flexpen SUBQ SCH ×4 (01:38→17:27)
[2018-08-30 04:00] VITALS: BP 119/62
--- NOTE | 2018-08-30 05:00 | Progress Note ---
DATE: 08/29/2018 CARDIOLOGY PROGRESS NOTE SUBJECTIVE: The patient complains of painful abdomen and leg. He is requested additional pain medications, which were given. Surgical evaluation appreciated regarding wound care. OBJECTIVE: VITAL SIGNS: Blood pressure 121/58, pulse 80, and respiratory rate 18. LUNGS: Coarse breath sounds. Scattered rhonchi. HEART: Regular rhythm and rate. Normal S1, S2. ABDOMEN: Soft. G-tube and suprapubic catheter noted intact. EXTREMITIES: No edema. Right foot has dressing in place over the second toe. LABORATORY DATA: No new labs today. IMPRESSION: 1. Sepsis. 2. Pneumonia. 3. Cellulitis. 4. Acute on chronic diastolic congestive heart failure. 5. Hypertensive heart disease with episodes of labile blood pressure. 6. Hypovolemia and dehydration, corrected. 7. Severe protein-calorie malnutrition, on supplements by feeding tube. 8. Multiple wounds. 9. Hypomagnesemia. PLAN: 1. Skin care. 2. Wound care. 3. Antimicrobials. 4. Nutrition by feeding tube. 5. Suprapubic catheter management. 6. Titrate antihypertensives and anti-failure regimen. 7. Recheck lab studies including magnesium. Bryon Ramirez M.D. DR: MARIEL JOB#: [id number] CC:
[2018-08-30] MEDS: Levothyroxine 125mcg tab ORAL SCH (06:49)
[2018-08-30 07:27] LABS: BASOPHILS % (AUTO) 0.6 % (0.0-2.0); EOSINOPHILS % (AUTO) 5.3 % (0.0-3.0); HEMATOCRIT 30.6 % (42.0-52.0); HEMOGLOBIN 10.2 G/DL (14.2-18.0); MEAN CORPUSCULAR VOLUME 93 FL (80-99); MONOCYTES % (AUTO) 5.7 % (1.0-10.0); NEUTROPHILS % (AUTO) 72.4 % (45.0-75.0); PLATELET COUNT 332 K/UL (150-450); RED BLOOD COUNT 3.27 M/UL (4.70-6.10); RED CELL DISTRIBUTION WIDTH 15.3 % (11.6-14.8); WHITE BLOOD COUNT 6.6 K/UL (4.8-10.8)
[2018-08-30 07:48] LABS: ALANINE AMINOTRANSFERASE 7 U/L (12-78); ALBUMIN 1.5 G/DL (3.4-5.0); ALBUMIN/GLOBULIN RATIO 0.3 (1.0-2.7); ALKALINE PHOSPHATASE 76 U/L (46-116); ANION GAP 5 mmol/L (5-15); ASPARTATE AMINO TRANSFERASE 20 U/L (15-37); BILIRUBIN,TOTAL < 0.1 MG/DL (0.2-1.0); BLOOD UREA NITROGEN 9 mg/dL (7-18); CALCIUM 8.8 MG/DL (8.5-10.1); CARBON DIOXIDE 28 MMOL/L (21-32); CHLORIDE 103 MMOL/L (98-107); CREATININE 0.7 MG/DL (0.55-1.30); POTASSIUM 3.7 MMOL/L (3.5-5.1); SODIUM 136 MMOL/L (136-145)
[2018-08-30 08:00] VITALS: BP 144/67
[2018-08-30] MEDS: Aspirin Baby 81mg GT SCH (08:29)
[2018-08-30] MEDS: Heparin 5000 units/ml inj SUBQ SCH ×2 (08:30→22:33)
--- NOTE | 2018-08-30 09:17 | Urology Progress Note ---
Assessment/Plan Assessment/Plan 1. Urinary retention with chronic suprapubic tube. 2. Benign prostatic hypertrophy history. 3. Neurogenic bladder. 4. Urinary tract infection and colonization. 5. Hematuria. 6. Proteinuria. keep SP tube, last exchanged 08/23 hand irrigate PRN cont with abx as ordered cysto later peritoneal cath? surg eval noted Subjective Allergies: Coded Allergies: No Known Allergies (Unverified , 06/17/18) Subjective all noted, looks comfortable Objective Last 24 Hour Vital Signs Date Time Temp Pulse Resp B/P (MAP) Pulse Ox O2 Delivery O2 Flow Rate FiO2 08/30/18 07:12 Nasal Cannula 2.0 28 08/30/18 07:12 98 Nasal Cannula 2.0 28 08/30/18 04:00 58 08/30/18 04:00 97.9 57 19 119/62 (81) 99 97.9 08/30/18 02:54 61 16 99 Facial 35 08/30/18 01:47 64 22 99 Facial 35 08/30/18 00:00 97.2 61 23 157/73 (101) 100 97.2 08/30/18 00:00 63 08/29/18 23:00 60 19 99 Facial 35 08/29/18 21:00 Nasal Cannula 2.0 08/29/18 20:00 70 08/29/18 20:00 97.7 73 20 137/69 (91) 98 97.7 08/29/18 19:20 Nasal Cannula 2.0 28 08/29/18 19:19 97 Nasal Cannula 2.0 28 08/29/18 16:00 98.2 79 20 139/69 (92) 94 98.2 08/29/18 16:00 89 08/29/18 12:00 96.7 80 18 121/58 (79) 95 96.7 08/29/18 12:00 78 Intake and Output 08/29/18 08/30/18 19:00 07:00 Intake Total 410 ml Output Total 400 ml 225 ml Balance 10 ml -225 ml Intake Free Water 50 ml Tube Feeding 360 ml Output Urine Total 400 ml 225 ml # Voids 1 # Bowel Movements 1 Microbiology Date/Time Source Procedure Growth Status 08/21/18 15:15 Blood Blood Culture - Final NO GROWTH AFTER 5 DAYS Complete 08/23/18 18:45 Wound Gram Stain - Final Complete 08/23/18 18:45 Wound Culture - Final Staphylococcus Aureus - Mrsa Complete 08/23/18 11:30 Sputum Gram Stain - Final Complete 08/23/18 11:30 Sputum Sputum Culture - Final NORMAL UPPER RESPIRATORY THEO PRESENT Complete 08/25/18 17:00 Stool Clostridium difficile Toxin Assay - Final Complete 08/21/18 15:15 Urine,Clean Catch Urine Culture - Final Providencia Stuartii Complete 08/21/18 17:07 Rectum - Final NO CARBAPENEM-RESISTANT ENTEROBACTERI... Complete Current Medications Medications (Trade) Dose Ordered Sig/Benjamin Route PRN Reason Start Time Stop Time Status Last Admin Dose Admin Acetaminophen (Tylenol) 650 mg Q4H PRN ORAL Mild Pain/Temp > 100.5 08/28/18 09:00 09/27/18 08:59 08/28/18 10:16 Acetaminophen/ Hydrocodone Bitart ([place] 5/325) 1 tab Q6H PRN ORAL For Pain 08/29/18 23:30 09/05/18 23:29 Aspirin (ASA) 81 mg DAILY GT 08/23/18 09:00 09/22/18 08:59 08/30/18 08:29 Dextrose (Dextrose 50%) 25 ml Q30M PRN IV Hypoglycemia 08/21/18 20:00 09/20/18 19:59 Dextrose (Dextrose 50%) 50 ml Q30M PRN IV Hypoglycemia 08/21/18 20:00 09/20/18 19:59 Heparin Sodium (Porcine) (Heparin 5000 units/ml) 5,000 units EVERY 12 HOURS SUBQ 08/21/18 21:00 09/20/18 20:59 08/30/18 08:30 Insulin Aspart (NovoLOG) EVERY 6 HOURS SUBQ 08/23/18 12:00 09/22/18 11:59 08/30/18 06:50 Lansoprazole (Prevacid) 30 mg DAILY GT 08/25/18 09:00 09/24/18 08:59 08/30/18 08:29 Levothyroxine Sodium (Synthroid) 125 mcg DAILY@0630 ORAL 08/24/18 06:30 09/23/18 06:29 08/30/18 06:49 Morphine Sulfate (Morphine Sulfate) 1 mg Q4H PRN IVP Moderate Pain(4-6) 08/29/18 20:54 09/05/18 20:53 Laboratory Tests 08/30/18 06:40: White Blood Count 6.6, Red Blood Count 3.27L, Hemoglobin 10.2L, Hematocrit 30.6L , Mean Corpuscular Volume 93, Mean Corpuscular Hemoglobin 31.2H, Mean Corpuscular Hemoglobin Concent 33.4, Red Cell Distribution Width 15.3H, Platelet Count 332, Mean Platelet Volume 5.8L, Neutrophils (%) (Auto) 72.4, Lymphocytes (%) (Auto) 16.0L, Monocytes (%) (Auto) 5.7, Eosinophils (%) (Auto) 5.3H, Basophils (%) (Auto) 0.6, Sodium Level 136, Potassium Level 3.7, Chloride Level 103, Carbon Dioxide Level 28, Anion Gap 5, Blood Urea Nitrogen 9, Creatinine 0.7, Estimat Glomerular Filtration Rate , Glucose Level 132H, Calcium Level 8.8, Magnesium Level 1.8, Total Bilirubin < 0.1L, Aspartate Amino Transf (AST/SGOT) 20, Alanine Aminotransferase (ALT/SGPT) 7L, Alkaline Phosphatase 76, Pro-B-Type Natriuretic Peptide 5219H, Total Protein 7.0, Albumin 1.5L, Globulin 5.5, Albumin/Globulin Ratio 0.3L Height (Feet): 5 Height (Inches): 6.00 Weight (Pounds): 145 Objective exam stable, urine clearing ALEJANDRO COLLIER Aug 30, 2018 09:17
[2018-08-30 12:00] VITALS: BP 132/71
--- NOTE | 2018-08-30 13:57 | Infectious Diseases Prog Note ---
Assessment/Plan Assessment/Plan A: Complicated UTI treated Pneumonia treated Hypoxic respiratory failure Dementia DM HPN Sacral stage 3 pressure ulcer P; Observe off antibiotic Subjective ROS Limited/Unobtainable: Yes Allergies: Coded Allergies: No Known Allergies (Unverified , 06/17/18) Objective Vital Signs Last 24 Hour Vital Signs Date Time Temp Pulse Resp B/P (MAP) Pulse Ox O2 Delivery O2 Flow Rate FiO2 08/30/18 12:00 51 08/30/18 12:00 97.5 61 18 132/71 (91) 97 97.5 08/30/18 09:00 Nasal Cannula 2.0 08/30/18 08:00 60 08/30/18 08:00 97.2 62 18 144/67 (92) 99 97.2 08/30/18 07:12 Nasal Cannula 2.0 28 08/30/18 07:12 98 Nasal Cannula 2.0 28 08/30/18 04:00 58 08/30/18 04:00 97.9 57 19 119/62 (81) 99 97.9 08/30/18 02:54 61 16 99 Facial 35 08/30/18 01:47 64 22 99 Facial 35 08/30/18 00:00 97.2 61 23 157/73 (101) 100 97.2 08/30/18 00:00 63 08/29/18 23:00 60 19 99 Facial 35 08/29/18 21:00 Nasal Cannula 2.0 08/29/18 20:00 70 08/29/18 20:00 97.7 73 20 137/69 (91) 98 97.7 08/29/18 19:20 Nasal Cannula 2.0 28 08/29/18 19:19 97 Nasal Cannula 2.0 28 08/29/18 16:00 98.2 79 20 139/69 (92) 94 98.2 08/29/18 16:00 89 Height (Feet): 5 Height (Inches): 6.00 Weight (Pounds): 145 General Appearance: no acute distress HEENT: mucous membranes moist Respiratory/Chest: lungs clear Cardiovascular: normal rate Abdomen: soft, non tender, other - GT feeding Extremities: no edema Skin: ulcers, other - sacral stage 3 Neurologic/Psychiatric: other - sleeping Laboratory Tests Test 08/30/18 06:40 White Blood Count 6.6 K/UL (4.8-10.8) Red Blood Count 3.27 M/UL (4.70-6.10) L Hemoglobin 10.2 G/DL (14.2-18.0) L Hematocrit 30.6 % (42.0-52.0) L Mean Corpuscular Volume 93 FL (80-99) Mean Corpuscular Hemoglobin 31.2 PG (27.0-31.0) H Mean Corpuscular Hemoglobin Concent 33.4 G/DL (32.0-36.0) Red Cell Distribution Width 15.3 % (11.6-14.8) H Platelet Count 332 K/UL (150-450) Mean Platelet Volume 5.8 FL (6.5-10.1) L Neutrophils (%) (Auto) 72.4 % (45.0-75.0) Lymphocytes (%) (Auto) 16.0 % (20.0-45.0) L Monocytes (%) (Auto) 5.7 % (1.0-10.0) Eosinophils (%) (Auto) 5.3 % (0.0-3.0) H Basophils (%) (Auto) 0.6 % (0.0-2.0) Sodium Level 136 MMOL/L (136-145) Potassium Level 3.7 MMOL/L (3.5-5.1) Chloride Level 103 MMOL/L (98-107) Carbon Dioxide Level 28 MMOL/L (21-32) Anion Gap 5 mmol/L (5-15) Blood Urea Nitrogen 9 mg/dL (7-18) Creatinine 0.7 MG/DL (0.55-1.30) Estimat Glomerular Filtration Rate mL/min (>60) Glucose Level 132 MG/DL (74-106) H Calcium Level 8.8 MG/DL (8.5-10.1) Magnesium Level 1.8 MG/DL (1.8-2.4) Total Bilirubin < 0.1 MG/DL (0.2-1.0) L Aspartate Amino Transf (AST/SGOT) 20 U/L (15-37) Alanine Aminotransferase (ALT/SGPT) 7 U/L (12-78) L Alkaline Phosphatase 76 U/L (46-116) Pro-B-Type Natriuretic Peptide 5219 pg/mL (0-125) H Total Protein 7.0 G/DL (6.4-8.2) Albumin 1.5 G/DL (3.4-5.0) L Globulin 5.5 g/dL Albumin/Globulin Ratio 0.3 (1.0-2.7) L Current Medications Medications (Trade) Dose Ordered Sig/Benjamin Route PRN Reason Start Time Stop Time Status Last Admin Dose Admin Acetaminophen (Tylenol) 650 mg Q4H PRN ORAL Mild Pain/Temp > 100.5 08/28/18 09:00 09/27/18 08:59 08/28/18 10:16 Acetaminophen/ Hydrocodone Bitart ([place] 5/325) 1 tab Q6H PRN ORAL For Pain 08/29/18 23:30 09/05/18 23:29 Aspirin (ASA) 81 mg DAILY GT 08/23/18 09:00 09/22/18 08:59 08/30/18 08:29 Dextrose (Dextrose 50%) 25 ml Q30M PRN IV Hypoglycemia 08/21/18 20:00 09/20/18 19:59 Dextrose (Dextrose 50%) 50 ml Q30M PRN IV Hypoglycemia 08/21/18 20:00 09/20/18 19:59 Heparin Sodium (Porcine) (Heparin 5000 units/ml) 5,000 units EVERY 12 HOURS SUBQ 08/21/18 21:00 09/20/18 20:59 08/30/18 08:30 Insulin Aspart (NovoLOG) EVERY 6 HOURS SUBQ 08/23/18 12:00 09/22/18 11:59 08/30/18 12:12 Lansoprazole (Prevacid) 30 mg DAILY GT 08/25/18 09:00 09/24/18 08:59 08/30/18 08:29 Levothyroxine Sodium (Synthroid) 125 mcg DAILY@0630 ORAL 08/24/18 06:30 09/23/18 06:29 08/30/18 06:49 Morphine Sulfate (Morphine Sulfate) 1 mg Q4H PRN IVP Moderate Pain(4-6) 08/29/18 20:54 09/05/18 20:53 Slade Odonnell MD Aug 30, 2018 13:57
[2018-08-30 16:00] VITALS: BP 150/80
--- NOTE | 2018-08-30 16:52 | General Surgery Progress Note ---
General Surgery-Progress Note Subjective Additional Comments broken right lower quadrant peritoneal catheter noted with leakage. suprapubic cath noted. Objective Last 24 Hour Vital Signs Date Time Temp Pulse Resp B/P (MAP) Pulse Ox O2 Delivery O2 Flow Rate FiO2 08/30/18 16:00 97.3 68 19 150/80 (103) 97 97.3 08/30/18 16:00 53 08/30/18 12:00 51 08/30/18 12:00 97.5 61 18 132/71 (91) 97 97.5 08/30/18 09:00 Nasal Cannula 2.0 08/30/18 08:00 60 08/30/18 08:00 97.2 62 18 144/67 (92) 99 97.2 08/30/18 07:12 Nasal Cannula 2.0 28 08/30/18 07:12 98 Nasal Cannula 2.0 28 08/30/18 04:00 58 08/30/18 04:00 97.9 57 19 119/62 (81) 99 97.9 08/30/18 02:54 61 16 99 Facial 35 08/30/18 01:47 64 22 99 Facial 35 08/30/18 00:00 97.2 61 23 157/73 (101) 100 97.2 08/30/18 00:00 63 08/29/18 23:00 60 19 99 Facial 35 08/29/18 21:00 Nasal Cannula 2.0 08/29/18 20:00 70 08/29/18 20:00 97.7 73 20 137/69 (91) 98 97.7 08/29/18 19:20 Nasal Cannula 2.0 28 08/29/18 19:19 97 Nasal Cannula 2.0 28 I&O Intake and Output 08/29/18 08/30/18 19:00 07:00 Intake Total 410 ml Output Total 400 ml 225 ml Balance 10 ml -225 ml Intake Free Water 50 ml Tube Feeding 360 ml Output Urine Total 400 ml 225 ml # Voids 1 # Bowel Movements 1 Dressing: saturated Wound: other Drains: other Cardiovascular: RSR Respiratory: clear Abdomen: soft, flat, non-tender, present bowel sounds, other Extremities: other Laboratory Tests Test 08/30/18 06:40 White Blood Count 6.6 K/UL (4.8-10.8) Red Blood Count 3.27 M/UL (4.70-6.10) L Hemoglobin 10.2 G/DL (14.2-18.0) L Hematocrit 30.6 % (42.0-52.0) L Mean Corpuscular Volume 93 FL (80-99) Mean Corpuscular Hemoglobin 31.2 PG (27.0-31.0) H Mean Corpuscular Hemoglobin Concent 33.4 G/DL (32.0-36.0) Red Cell Distribution Width 15.3 % (11.6-14.8) H Platelet Count 332 K/UL (150-450) Mean Platelet Volume 5.8 FL (6.5-10.1) L Neutrophils (%) (Auto) 72.4 % (45.0-75.0) Lymphocytes (%) (Auto) 16.0 % (20.0-45.0) L Monocytes (%) (Auto) 5.7 % (1.0-10.0) Eosinophils (%) (Auto) 5.3 % (0.0-3.0) H Basophils (%) (Auto) 0.6 % (0.0-2.0) Sodium Level 136 MMOL/L (136-145) Potassium Level 3.7 MMOL/L (3.5-5.1) Chloride Level 103 MMOL/L (98-107) Carbon Dioxide Level 28 MMOL/L (21-32) Anion Gap 5 mmol/L (5-15) Blood Urea Nitrogen 9 mg/dL (7-18) Creatinine 0.7 MG/DL (0.55-1.30) Estimat Glomerular Filtration Rate mL/min (>60) Glucose Level 132 MG/DL (74-106) H Calcium Level 8.8 MG/DL (8.5-10.1) Magnesium Level 1.8 MG/DL (1.8-2.4) Total Bilirubin < 0.1 MG/DL (0.2-1.0) L Aspartate Amino Transf (AST/SGOT) 20 U/L (15-37) Alanine Aminotransferase (ALT/SGPT) 7 U/L (12-78) L Alkaline Phosphatase 76 U/L (46-116) Pro-B-Type Natriuretic Peptide 5219 pg/mL (0-125) H Total Protein 7.0 G/DL (6.4-8.2) Albumin 1.5 G/DL (3.4-5.0) L Globulin 5.5 g/dL Albumin/Globulin Ratio 0.3 (1.0-2.7) L Plan Problems: (1) Decubitus ulcer of sacral area Assessment & Plan: Partial thickness wounds buttocks (L)4cm x (W)4.5cm wound bed viable with shearing periwound. Partial thickness wound upper R buttocks ,wound bed viable with shearing and loose skin periwound. Stable necrosis medial R heel (L)3cm x (W)3cm. Periwound without erythema or induration. Full thickness wound dorsum R 2nd metatarsal (L)2cm x (W)1.8cm x (D)0.5cm .Wound oozing small amt purulent exudate. Tx Plan: Surface support mattress . Reposition at least every 2hours or as tolerated. Off-load heels with pillow. Moisture Barrier to buttocks Q shift and prn. Appreciate Podiatry input for heel and metatarsal wound (2) Malposition of peritoneal dialysis catheter Assessment & Plan: broken right lower quadrant peritoneal catheter noted with leakage. CT reviewed concerning as high risk for infection. broken pieces of catheter noted at skin level. unsure if someone had tried to remove prior? will discuss with family and team about surgery to remove remaining portion thank you Ezequiel Hayes Aug 30, 2018 16:52
--- NOTE | 2018-08-30 17:32 | General Progress Note ---
Assessment/Plan Problem List: (1) UTI (urinary tract infection) ICD Codes: N39.0 - Urinary tract infection, site not specified SNOMED: 19948643 Qualifiers: Qualified Codes: T83.511A - Infection and inflammatory reaction due to indwelling urethral catheter, initial encounter; N39.0 - Urinary tract infection , site not specified (2) Severe sepsis ICD Codes: A41.9 - Sepsis, unspecified organism; R65.20 - Severe sepsis without septic shock SNOMED: 26758505 (3) NSTEMI (non-ST elevated myocardial infarction) ICD Codes: I21.4 - Non-ST elevation (NSTEMI) myocardial infarction SNOMED: 318643506 (4) Right lower lobe pneumonia ICD Codes: J18.1 - Lobar pneumonia, unspecified organism SNOMED: 124433544 Qualifiers: Qualified Codes: J18.1 - Lobar pneumonia, unspecified organism (5) Elevated lactic acid level ICD Codes: R79.89 - Other specified abnormal findings of blood chemistry SNOMED: 6722358 Status: stable, progressing Assessment/Plan iv abx follow up cultures bipap as needed pain rx as needed resp rx ct abd/pelvis reviewed needs to have retained catheter removed due to high risk of infection. gt feeds follow up am labs dvt/stress ulcer prophlaxis skin care Subjective ROS Limited/Unobtainable: No Constitutional: Reports: malaise, weakness HEENT: Reports: no symptoms Cardiovascular: Reports: no symptoms Respiratory: Reports: cough, shortness of breath Gastrointestinal/Abdominal: Reports: abdominal pain Genitourinary: Reports: no symptoms Neurologic/Psychiatric: Reports: pre-existing deficit Endocrine: Reports: no symptoms Hematologic/Lymphatic: Reports: no symptoms Allergies: Coded Allergies: No Known Allergies (Unverified , 06/17/18) All Systems: reviewed and negative except above Subjective no events. ?abd pain, controlled with tylenol. d/w surgery has retained peritoneal catheter in right lower quadrant(tip broken off) Objective Last 24 Hour Vital Signs Date Time Temp Pulse Resp B/P (MAP) Pulse Ox O2 Delivery O2 Flow Rate FiO2 08/30/18 16:00 97.3 68 19 150/80 (103) 97 97.3 08/30/18 16:00 53 08/30/18 12:00 51 08/30/18 12:00 97.5 61 18 132/71 (91) 97 97.5 08/30/18 09:00 Nasal Cannula 2.0 08/30/18 08:00 60 08/30/18 08:00 97.2 62 18 144/67 (92) 99 97.2 08/30/18 07:12 Nasal Cannula 2.0 28 08/30/18 07:12 98 Nasal Cannula 2.0 28 08/30/18 04:00 58 08/30/18 04:00 97.9 57 19 119/62 (81) 99 97.9 08/30/18 02:54 61 16 99 Facial 35 08/30/18 01:47 64 22 99 Facial 35 08/30/18 00:00 97.2 61 23 157/73 (101) 100 97.2 08/30/18 00:00 63 08/29/18 23:00 60 19 99 Facial 35 08/29/18 21:00 Nasal Cannula 2.0 08/29/18 20:00 70 08/29/18 20:00 97.7 73 20 137/69 (91) 98 97.7 08/29/18 19:20 Nasal Cannula 2.0 28 08/29/18 19:19 97 Nasal Cannula 2.0 28 Intake and Output 08/29/18 08/30/18 19:00 07:00 Intake Total 410 ml Output Total 400 ml 225 ml Balance 10 ml -225 ml Intake Free Water 50 ml Tube Feeding 360 ml Output Urine Total 400 ml 225 ml # Voids 1 # Bowel Movements 1 Laboratory Tests 08/30/18 06:40: White Blood Count 6.6, Red Blood Count 3.27L, Hemoglobin 10.2L, Hematocrit 30.6L , Mean Corpuscular Volume 93, Mean Corpuscular Hemoglobin 31.2H, Mean Corpuscular Hemoglobin Concent 33.4, Red Cell Distribution Width 15.3H, Platelet Count 332, Mean Platelet Volume 5.8L, Neutrophils (%) (Auto) 72.4, Lymphocytes (%) (Auto) 16.0L, Monocytes (%) (Auto) 5.7, Eosinophils (%) (Auto) 5.3H, Basophils (%) (Auto) 0.6, Sodium Level 136, Potassium Level 3.7, Chloride Level 103, Carbon Dioxide Level 28, Anion Gap 5, Blood Urea Nitrogen 9, Creatinine 0.7, Estimat Glomerular Filtration Rate , Glucose Level 132H, Calcium Level 8.8, Magnesium Level 1.8, Total Bilirubin < 0.1L, Aspartate Amino Transf (AST/SGOT) 20, Alanine Aminotransferase (ALT/SGPT) 7L, Alkaline Phosphatase 76, Pro-B-Type Natriuretic Peptide 5219H, Total Protein 7.0, Albumin 1.5L, Globulin 5.5, Albumin/Globulin Ratio 0.3L Height (Feet): 5 Height (Inches): 6.00 Weight (Pounds): 145 Objective General Appearance: WD/WN, alert Neck: supple Cardiovascular: normal rate, regular rhythm Respiratory/Chest: chest wall non-tender, lungs with farhat rhonchi Abdomen: normal bowel sounds, non tender, soft, no organomegaly Neurologic: unresponsive, aphasia Michael Zuniga MD Aug 30, 2018 17:32
[2018-08-30 21:18] VITALS: BP 118/62
--- NOTE | 2018-08-30 21:25 | Pulmonology Progress Note ---
Assessment/Plan Assessment/Plan IMPRESSION: 1. Respiratory failure, resolved 2. Sepsis with shock. improved 3. Dysphagia. 4. G-tube. 5. CVA. 6. Altered mental status. 7. Aspiration pneumonia 8. Severe protein-calorie malnutrition. 9. Diabetes. PLAN respiratory care reviewed aspiration precautions as is antibiotics noted and reviewed imaging noted; repeat for change close follow up DVT prophylaxis impression, plan, and exam edited and reviewed in detail care discussed with RN Subjective Allergies: Coded Allergies: No Known Allergies (Unverified , 06/17/18) Subjective reviewed care off BIPAP and stable currently Objective Last 24 Hour Vital Signs Date Time Temp Pulse Resp B/P (MAP) Pulse Ox O2 Delivery O2 Flow Rate FiO2 08/30/18 16:00 97.3 68 19 150/80 (103) 97 97.3 08/30/18 16:00 53 08/30/18 12:00 51 08/30/18 12:00 97.5 61 18 132/71 (91) 97 97.5 08/30/18 09:00 Nasal Cannula 2.0 08/30/18 08:00 60 08/30/18 08:00 97.2 62 18 144/67 (92) 99 97.2 08/30/18 07:12 Nasal Cannula 2.0 28 08/30/18 07:12 98 Nasal Cannula 2.0 28 08/30/18 04:00 58 08/30/18 04:00 97.9 57 19 119/62 (81) 99 97.9 08/30/18 02:54 61 16 99 Facial 35 08/30/18 01:47 64 22 99 Facial 35 08/30/18 00:00 97.2 61 23 157/73 (101) 100 97.2 08/30/18 00:00 63 08/29/18 23:00 60 19 99 Facial 35 Intake and Output 08/29/18 08/30/18 19:00 07:00 Intake Total 410 ml Output Total 400 ml 225 ml Balance 10 ml -225 ml Intake Free Water 50 ml Tube Feeding 360 ml Output Urine Total 400 ml 225 ml # Voids 1 # Bowel Movements 1 Objective GENERAL: Ill-appearing male, withdrawn, nonverbal. ALOC LUNGS: scattered rhonchi, moderate air entry, symmetric. CARDIAC: Normal S1, S2. RRR without murmurs, rubs, or gallops. ABDOMEN: Soft, nontender, nondistended. no distention EXTREMITIES: No cyanosis or clubbing. no edema SKIN: noted GENITOURINARY: The patient has suprapubic catheter. NEUROLOGIC: Neurologically overall same Laboratory Tests 08/30/18 06:40: White Blood Count 6.6, Red Blood Count 3.27L, Hemoglobin 10.2L, Hematocrit 30.6L , Mean Corpuscular Volume 93, Mean Corpuscular Hemoglobin 31.2H, Mean Corpuscular Hemoglobin Concent 33.4, Red Cell Distribution Width 15.3H, Platelet Count 332, Mean Platelet Volume 5.8L, Neutrophils (%) (Auto) 72.4, Lymphocytes (%) (Auto) 16.0L, Monocytes (%) (Auto) 5.7, Eosinophils (%) (Auto) 5.3H, Basophils (%) (Auto) 0.6, Sodium Level 136, Potassium Level 3.7, Chloride Level 103, Carbon Dioxide Level 28, Anion Gap 5, Blood Urea Nitrogen 9, Creatinine 0.7, Estimat Glomerular Filtration Rate , Glucose Level 132H, Calcium Level 8.8, Magnesium Level 1.8, Total Bilirubin < 0.1L, Aspartate Amino Transf (AST/SGOT) 20, Alanine Aminotransferase (ALT/SGPT) 7L, Alkaline Phosphatase 76, Pro-B-Type Natriuretic Peptide 5219H, Total Protein 7.0, Albumin 1.5L, Globulin 5.5, Albumin/Globulin Ratio 0.3L Current Medications Medications (Trade) Dose Ordered Sig/Benjamin Route PRN Reason Start Time Stop Time Status Last Admin Dose Admin Acetaminophen (Tylenol) 650 mg Q4H PRN ORAL Mild Pain/Temp > 100.5 08/28/18 09:00 09/27/18 08:59 08/28/18 10:16 Acetaminophen/ Hydrocodone Bitart ([place] 5/325) 1 tab Q6H PRN ORAL For Pain 08/29/18 23:30 09/05/18 23:29 Aspirin (ASA) 81 mg DAILY GT 08/23/18 09:00 09/22/18 08:59 08/30/18 08:29 Dextrose (Dextrose 50%) 25 ml Q30M PRN IV Hypoglycemia 08/21/18 20:00 09/20/18 19:59 Dextrose (Dextrose 50%) 50 ml Q30M PRN IV Hypoglycemia 08/21/18 20:00 09/20/18 19:59 Heparin Sodium (Porcine) (Heparin 5000 units/ml) 5,000 units EVERY 12 HOURS SUBQ 08/21/18 21:00 09/20/18 20:59 08/30/18 08:30 Insulin Aspart (NovoLOG) EVERY 6 HOURS SUBQ 08/23/18 12:00 09/22/18 11:59 08/30/18 17:27 Lansoprazole (Prevacid) 30 mg DAILY GT 08/25/18 09:00 09/24/18 08:59 08/30/18 08:29 Levothyroxine Sodium (Synthroid) 125 mcg DAILY@0630 ORAL 08/24/18 06:30 09/23/18 06:29 08/30/18 06:49 Morphine Sulfate (Morphine Sulfate) 1 mg Q4H PRN IVP Moderate Pain(4-6) 08/29/18 20:54 09/05/18 20:53 James Langston MD Aug 30, 2018 21:25
[2018-08-31] VITALS (7 sets, daily range): BP systolic 118–150; BP diastolic 62–73
--- NOTE | 2018-08-31 00:30 | Progress Note ---
DATE: 08/30/2018 CARDIOLOGY PROGRESS NOTE SUBJECTIVE: The patient without distress other than back pain. OBJECTIVE: VITAL SIGNS: Blood pressure 150/80, pulse 68, and respiratory rate 19. GENERAL: Monitored sinus and sinus bradycardia. LUNGS: Few rhonchi. CARDIAC: Regular. ABDOMEN: Soft. Right lower quadrant peritoneal dialysis catheter stump noted. LABORATORY DATA: White count 6.6 and hemoglobin 10.2. Potassium 3.7, albumin 1.5, and magnesium 1.8. Suprapubic catheter and G-tube sites are intact. IMPRESSION AND PLAN: 1. Possible removal of remaining dialysis catheter. 2. Antimicrobials. 3. Periodic diuresis. 4. Titrate antihypertensives. 5. Avoid beta-blockers in view of bradycardia. 6. DVT prophylaxis. Bryon Ramirez M.D. DR: CITLALLI JOB#: [id number] CC:
[2018-08-31] MEDS: NovoLOG Insulin Flexpen SUBQ SCH ×4 (00:39→17:16)
[2018-08-31] MEDS: Levothyroxine 125mcg tab ORAL SCH (07:03)
--- NOTE | 2018-08-31 07:50 | General Progress Note ---
Assessment/Plan Problem List: (1) UTI (urinary tract infection) ICD Codes: N39.0 - Urinary tract infection, site not specified SNOMED: 54033655 Qualifiers: Qualified Codes: T83.511A - Infection and inflammatory reaction due to indwelling urethral catheter, initial encounter; N39.0 - Urinary tract infection , site not specified (2) Severe sepsis ICD Codes: A41.9 - Sepsis, unspecified organism; R65.20 - Severe sepsis without septic shock SNOMED: 84700729 (3) NSTEMI (non-ST elevated myocardial infarction) ICD Codes: I21.4 - Non-ST elevation (NSTEMI) myocardial infarction SNOMED: 998278985 (4) Right lower lobe pneumonia ICD Codes: J18.1 - Lobar pneumonia, unspecified organism SNOMED: 153570737 Qualifiers: Qualified Codes: J18.1 - Lobar pneumonia, unspecified organism (5) Elevated lactic acid level ICD Codes: R79.89 - Other specified abnormal findings of blood chemistry SNOMED: 0292625 Status: stable, progressing Assessment/Plan off abx follow up cultures bipap as needed pain rx as needed resp rx needs to have retained PD catheter removed due to high risk of infection. gt feeds dvt/stress ulcer prophlaxis skin care Subjective ROS Limited/Unobtainable: No Constitutional: Reports: malaise, weakness HEENT: Reports: no symptoms Cardiovascular: Reports: no symptoms Respiratory: Reports: cough, shortness of breath Gastrointestinal/Abdominal: Reports: abdominal pain Genitourinary: Reports: no symptoms Neurologic/Psychiatric: Reports: pre-existing deficit Endocrine: Reports: no symptoms Hematologic/Lymphatic: Reports: anemia Allergies: Coded Allergies: No Known Allergies (Unverified , 06/17/18) All Systems: reviewed and negative except above Subjective no events. c/o abd pain. no fevers. off abx. Objective Last 24 Hour Vital Signs Date Time Temp Pulse Resp B/P (MAP) Pulse Ox O2 Delivery O2 Flow Rate FiO2 08/31/18 04:53 97.0 77 20 139/73 (95) 97.0 08/31/18 04:49 71 08/31/18 00:59 98.2 61 20 118/62 (80) 98.2 08/31/18 00:00 98.2 74 20 142/64 (90) 98.2 20 08/31/18 00:00 69 08/30/18 21:18 98.2 61 20 118/62 (80) 98 98.2 08/30/18 20:15 97 Nasal Cannula 2.0 28 08/30/18 20:00 Nasal Cannula 2.0 28 08/30/18 20:00 Nasal Cannula 2.0 08/30/18 16:00 97.3 68 19 150/80 (103) 97 97.3 08/30/18 16:00 53 08/30/18 12:00 51 08/30/18 12:00 97.5 61 18 132/71 (91) 97 97.5 08/30/18 09:00 Nasal Cannula 2.0 08/30/18 08:00 60 08/30/18 08:00 97.2 62 18 144/67 (92) 99 97.2 Intake and Output 08/30/18 08/31/18 19:00 07:00 Intake Total 370 ml Output Total 350 ml 500 ml Balance 20 ml -500 ml Intake Free Water 70 ml Tube Feeding 300 ml Output Urine Total 350 ml 500 ml Height (Feet): 5 Height (Inches): 6.00 Weight (Pounds): 127 Objective General Appearance: WD/WN, alert Neck: supple Cardiovascular: normal rate, regular rhythm Respiratory/Chest: chest wall non-tender, lungs with farhat rhonchi Abdomen: normal bowel sounds, non tender, soft, no organomegaly Neurologic: unresponsive, aphasia Michael Zuniga MD Aug 31, 2018 07:50
[2018-08-31] MEDS: Aspirin Baby 81mg GT SCH ×2 (08:19→09:00)
[2018-08-31] MEDS: Heparin 5000 units/ml inj SUBQ SCH ×2 (08:20→20:20)
--- NOTE | 2018-08-31 10:08 | Urology Progress Note ---
Assessment/Plan Assessment/Plan 1. Urinary retention with chronic suprapubic tube. 2. Benign prostatic hypertrophy history. 3. Neurogenic bladder. 4. Urinary tract infection and colonization. 5. Hematuria. 6. Proteinuria. keep SP tube, last exchanged 08/23 hand irrigate PRN cont with abx as ordered cysto later peritoneal cath, management per surg consider recheck urine cx at some point Subjective Allergies: Coded Allergies: No Known Allergies (Unverified , 06/17/18) Subjective all noted, looks comfortable Objective Last 24 Hour Vital Signs Date Time Temp Pulse Resp B/P (MAP) Pulse Ox O2 Delivery O2 Flow Rate FiO2 08/31/18 08:13 97.9 69 20 144/73 (96) 97 97.9 08/31/18 04:53 97.0 77 20 139/73 (95) 97.0 08/31/18 04:49 71 08/31/18 00:59 98.2 61 20 118/62 (80) 98.2 08/31/18 00:00 98.2 74 20 142/64 (90) 98.2 20 08/31/18 00:00 69 08/30/18 21:18 98.2 61 20 118/62 (80) 98 98.2 08/30/18 20:15 97 Nasal Cannula 2.0 28 08/30/18 20:00 Nasal Cannula 2.0 28 08/30/18 20:00 Nasal Cannula 2.0 08/30/18 16:00 97.3 68 19 150/80 (103) 97 97.3 08/30/18 16:00 53 08/30/18 12:00 51 08/30/18 12:00 97.5 61 18 132/71 (91) 97 97.5 Intake and Output 08/30/18 08/31/18 19:00 07:00 Intake Total 370 ml Output Total 350 ml 500 ml Balance 20 ml -500 ml Intake Free Water 70 ml Tube Feeding 300 ml Output Urine Total 350 ml 500 ml Microbiology Date/Time Source Procedure Growth Status 08/21/18 15:15 Blood Blood Culture - Final NO GROWTH AFTER 5 DAYS Complete 08/23/18 18:45 Wound Gram Stain - Final Complete 08/23/18 18:45 Wound Culture - Final Staphylococcus Aureus - Mrsa Complete 08/23/18 11:30 Sputum Gram Stain - Final Complete 08/23/18 11:30 Sputum Sputum Culture - Final NORMAL UPPER RESPIRATORY THEO PRESENT Complete 08/25/18 17:00 Stool Clostridium difficile Toxin Assay - Final Complete 08/21/18 15:15 Urine,Clean Catch Urine Culture - Final Providencia Stuartii Complete 08/21/18 17:07 Rectum - Final NO CARBAPENEM-RESISTANT ENTEROBACTERI... Complete Current Medications Medications (Trade) Dose Ordered Sig/Benjamin Route PRN Reason Start Time Stop Time Status Last Admin Dose Admin Acetaminophen (Tylenol) 650 mg Q4H PRN ORAL Mild Pain/Temp > 100.5 08/28/18 09:00 09/27/18 08:59 08/28/18 10:16 Acetaminophen/ Hydrocodone Bitart ([place] 5/325) 1 tab Q6H PRN ORAL For Pain 08/29/18 23:30 09/05/18 23:29 Aspirin (ASA) 81 mg DAILY GT 08/23/18 09:00 09/22/18 08:59 08/30/18 08:29 Dextrose (Dextrose 50%) 25 ml Q30M PRN IV Hypoglycemia 08/21/18 20:00 09/20/18 19:59 Dextrose (Dextrose 50%) 50 ml Q30M PRN IV Hypoglycemia 08/21/18 20:00 09/20/18 19:59 Heparin Sodium (Porcine) (Heparin 5000 units/ml) 5,000 units EVERY 12 HOURS SUBQ 08/21/18 21:00 09/20/18 20:59 08/31/18 08:20 Insulin Aspart (NovoLOG) EVERY 6 HOURS SUBQ 08/23/18 12:00 09/22/18 11:59 08/31/18 07:02 Lansoprazole (Prevacid) 30 mg DAILY GT 08/25/18 09:00 09/24/18 08:59 08/30/18 08:29 Levothyroxine Sodium (Synthroid) 125 mcg DAILY@0630 ORAL 08/24/18 06:30 09/23/18 06:29 08/31/18 07:03 Morphine Sulfate (Morphine Sulfate) 1 mg Q4H PRN IVP Moderate Pain(4-6) 08/29/18 20:54 09/05/18 20:53 Height (Feet): 5 Height (Inches): 6.00 Weight (Pounds): 127 Objective exam stable, urine clearing BAMSHAD,ALEJANDRO Aug 31, 2018 10:08
--- NOTE | 2018-08-31 11:06 | Infectious Diseases Prog Note ---
Assessment/Plan Assessment/Plan antibiotics : none A 1. providencia UTI s/p rx 2. pneumonia s/p s/p rx 3. leucocytosis resolved 4. diabetes mellitus 5. hypertension 6. dementia p 1. continue off antibiotics Subjective ROS Limited/Unobtainable: Yes Allergies: Coded Allergies: No Known Allergies (Unverified , 06/17/18) Objective Vital Signs Last 24 Hour Vital Signs Date Time Temp Pulse Resp B/P (MAP) Pulse Ox O2 Delivery O2 Flow Rate FiO2 08/31/18 10:24 Nasal Cannula 2.0 08/31/18 08:13 97.9 69 20 144/73 (96) 97 97.9 08/31/18 04:53 97.0 77 20 139/73 (95) 97.0 08/31/18 04:49 71 08/31/18 00:59 98.2 61 20 118/62 (80) 98.2 08/31/18 00:00 98.2 74 20 142/64 (90) 98.2 20 08/31/18 00:00 69 08/30/18 21:18 98.2 61 20 118/62 (80) 98 98.2 08/30/18 20:15 97 Nasal Cannula 2.0 28 08/30/18 20:00 Nasal Cannula 2.0 28 08/30/18 20:00 Nasal Cannula 2.0 08/30/18 16:00 97.3 68 19 150/80 (103) 97 97.3 08/30/18 16:00 53 08/30/18 12:00 51 08/30/18 12:00 97.5 61 18 132/71 (91) 97 97.5 Height (Feet): 5 Height (Inches): 6.00 Weight (Pounds): 127 Respiratory/Chest: lungs clear Cardiovascular: normal rate, regular rhythm, no gallop/murmur Abdomen: soft, non tender, other - GT, SPC Extremities: no edema Current Medications Medications (Trade) Dose Ordered Sig/Benjamin Route PRN Reason Start Time Stop Time Status Last Admin Dose Admin Acetaminophen (Tylenol) 650 mg Q4H PRN ORAL Mild Pain/Temp > 100.5 08/28/18 09:00 09/27/18 08:59 08/28/18 10:16 Acetaminophen/ Hydrocodone Bitart ([place] 5/325) 1 tab Q6H PRN ORAL For Pain 08/29/18 23:30 09/05/18 23:29 Aspirin (ASA) 81 mg DAILY GT 08/23/18 09:00 09/22/18 08:59 08/30/18 08:29 Dextrose (Dextrose 50%) 25 ml Q30M PRN IV Hypoglycemia 08/21/18 20:00 09/20/18 19:59 Dextrose (Dextrose 50%) 50 ml Q30M PRN IV Hypoglycemia 08/21/18 20:00 09/20/18 19:59 Heparin Sodium (Porcine) (Heparin 5000 units/ml) 5,000 units EVERY 12 HOURS SUBQ 08/21/18 21:00 09/20/18 20:59 08/31/18 08:20 Insulin Aspart (NovoLOG) EVERY 6 HOURS SUBQ 08/23/18 12:00 09/22/18 11:59 08/31/18 07:02 Lansoprazole (Prevacid) 30 mg DAILY GT 08/25/18 09:00 09/24/18 08:59 08/30/18 08:29 Levothyroxine Sodium (Synthroid) 125 mcg DAILY@0630 ORAL 08/24/18 06:30 09/23/18 06:29 08/31/18 07:03 Morphine Sulfate (Morphine Sulfate) 1 mg Q4H PRN IVP Moderate Pain(4-6) 08/29/18 20:54 09/05/18 20:53 FAZAL PORRAS Aug 31, 2018 11:06
--- NOTE | 2018-08-31 12:26 | Diagnostic Imaging Report ---
Indication: Dyspnea Comparison: 08/24/2018 A single view chest radiograph was obtained. Findings: Asymmetric right basilar parenchymal density noted may be pneumonia. Correlate clinically. Pulmonary vascularity is within normal limits at this time. Heart size is normal. Small bilateral pleural effusions versus pleural thickening noted. IMPRESSION: Right basal lung disease. Pneumonia suspected. Correlate clinically
--- NOTE | 2018-08-31 13:26 | Pulmonology Progress Note ---
Assessment/Plan Assessment/Plan IMPRESSION: 1. Respiratory failure, resolved 2. Sepsis with shock. improved 3. Dysphagia. 4. G-tube. 5. CVA. 6. Altered mental status. 7. Aspiration pneumonia 8. Severe protein-calorie malnutrition. 9. Diabetes. PLAN respiratory care as is aspiration precautions as is antibiotics noted and reviewed imaging noted; repeat for change close follow up for change DVT prophylaxis monitor imaging for clearing impression, plan, and exam edited and reviewed in detail care discussed with RN Subjective ROS Limited/Unobtainable: Yes Allergies: Coded Allergies: No Known Allergies (Unverified , 06/17/18) Subjective reviewed care off BIPAP and stable currently confused Objective Last 24 Hour Vital Signs Date Time Temp Pulse Resp B/P (MAP) Pulse Ox O2 Delivery O2 Flow Rate FiO2 08/31/18 12:40 97.2 71 20 150/71 (97) 96 97.2 08/31/18 12:00 75 08/31/18 10:24 Nasal Cannula 2.0 08/31/18 08:13 97.9 69 20 144/73 (96) 97 97.9 08/31/18 08:00 72 08/31/18 04:53 97.0 77 20 139/73 (95) 97.0 08/31/18 04:49 71 08/31/18 00:59 98.2 61 20 118/62 (80) 98.2 08/31/18 00:00 98.2 74 20 142/64 (90) 98.2 20 08/31/18 00:00 69 08/30/18 21:18 98.2 61 20 118/62 (80) 98 98.2 08/30/18 20:15 97 Nasal Cannula 2.0 28 08/30/18 20:00 Nasal Cannula 2.0 28 08/30/18 20:00 Nasal Cannula 2.0 08/30/18 16:00 97.3 68 19 150/80 (103) 97 97.3 08/30/18 16:00 53 Intake and Output 08/30/18 08/31/18 19:00 07:00 Intake Total 370 ml Output Total 350 ml 500 ml Balance 20 ml -500 ml Intake Free Water 70 ml Tube Feeding 300 ml Output Urine Total 350 ml 500 ml Objective GENERAL: Ill-appearing male, withdrawn, nonverbal. ALOC LUNGS: some residual rhonchi, moderate air entry, symmetric. CARDIAC: Normal S1, S2. RRR without murmurs, rubs, or gallops. ABDOMEN: Soft, nontender, nondistended. no distention EXTREMITIES: No cyanosis or clubbing. no edema SKIN: noted GENITOURINARY: The patient has suprapubic catheter. NEUROLOGIC: Neurologically overall same nonverbal reviewed and edited Current Medications Medications (Trade) Dose Ordered Sig/Benjamin Route PRN Reason Start Time Stop Time Status Last Admin Dose Admin Acetaminophen (Tylenol) 650 mg Q4H PRN ORAL Mild Pain/Temp > 100.5 08/28/18 09:00 09/27/18 08:59 08/28/18 10:16 Acetaminophen/ Hydrocodone Bitart ([place] 5/325) 1 tab Q6H PRN ORAL For Pain 08/29/18 23:30 09/05/18 23:29 Aspirin (ASA) 81 mg DAILY GT 08/23/18 09:00 09/22/18 08:59 08/30/18 08:29 Dextrose (Dextrose 50%) 25 ml Q30M PRN IV Hypoglycemia 08/21/18 20:00 09/20/18 19:59 Dextrose (Dextrose 50%) 50 ml Q30M PRN IV Hypoglycemia 08/21/18 20:00 09/20/18 19:59 Heparin Sodium (Porcine) (Heparin 5000 units/ml) 5,000 units EVERY 12 HOURS SUBQ 08/21/18 21:00 09/20/18 20:59 08/31/18 08:20 Insulin Aspart (NovoLOG) EVERY 6 HOURS SUBQ 08/23/18 12:00 09/22/18 11:59 08/31/18 11:44 Lansoprazole (Prevacid) 30 mg DAILY GT 08/25/18 09:00 09/24/18 08:59 08/30/18 08:29 Levothyroxine Sodium (Synthroid) 125 mcg DAILY@0630 ORAL 08/24/18 06:30 09/23/18 06:29 08/31/18 07:03 Morphine Sulfate (Morphine Sulfate) 1 mg Q4H PRN IVP Moderate Pain(4-6) 08/29/18 20:54 09/05/18 20:53 James Langston MD Aug 31, 2018 13:26
--- NOTE | 2018-08-31 15:07 | Diagnostic Imaging Report ---
APPROVED REPORT CPT Code: 22252 Symptoms Comments: Right leg infection RIGHT LEG: Common femoral artery waveform analysis is within normal limits at rest. Color flow duplex sonography reveals calcification throughout the superficial femoral and popliteal arteries. There is no evidence of stenosis or occlusion within these segments. The tibioperoneal trunk was patent. The distal posterior tibial, anterior tibial and dorsalis pedis arteries are also mildly calcified. Doppler tibial artery waveform analysis is compatible with minimal ischemia. LEFT LEG: Common femoral artery waveform analysis is within normal limits at rest. Color flow duplex sonography reveals calcification throughout the superficial femoral and popliteal arteries. There is no evidence of stenosis or occlusion within these segments. The tibioperoneal trunk was patent. The posterior tibial, anterior tibial and dorsalis pedis arteries are also patent. Doppler tibial artery waveform analysis is within normal limits.
--- NOTE | 2018-08-31 15:07 | Diagnostic Imaging Report ---
APPROVED REPORT CPT Code: 44030 Present Symptoms Shortness of breath BILATERAL: Imaging reveals a patent deep venous system bilaterally. There is no evidence of thrombus within the femoral, popliteal or tibial segments. The greater saphenous veins are also within normal limits. Doppler indicates normal spontaneous flow within these segments.
--- NOTE | 2018-08-31 16:38 | General Surgery Progress Note ---
General Surgery-Progress Note Subjective Additional Comments no acute events. spoke with family Objective Last 24 Hour Vital Signs Date Time Temp Pulse Resp B/P (MAP) Pulse Ox O2 Delivery O2 Flow Rate FiO2 08/31/18 15:52 97.4 74 20 146/71 (96) 96 97.4 08/31/18 12:40 97.2 71 20 150/71 (97) 96 97.2 08/31/18 12:00 75 08/31/18 10:24 Nasal Cannula 2.0 08/31/18 08:13 97.9 69 20 144/73 (96) 97 97.9 08/31/18 08:00 72 08/31/18 04:53 97.0 77 20 139/73 (95) 97.0 08/31/18 04:49 71 08/31/18 00:59 98.2 61 20 118/62 (80) 98.2 08/31/18 00:00 98.2 74 20 142/64 (90) 98.2 20 08/31/18 00:00 69 08/30/18 21:18 98.2 61 20 118/62 (80) 98 98.2 08/30/18 20:15 97 Nasal Cannula 2.0 28 08/30/18 20:00 Nasal Cannula 2.0 28 08/30/18 20:00 Nasal Cannula 2.0 I&O Intake and Output 08/30/18 08/31/18 19:00 07:00 Intake Total 370 ml Output Total 350 ml 500 ml Balance 20 ml -500 ml Intake Free Water 70 ml Tube Feeding 300 ml Output Urine Total 350 ml 500 ml Dressing: saturated Wound: other Drains: other Cardiovascular: RSR Respiratory: clear Abdomen: soft, flat, present bowel sounds Extremities: other Plan Problems: (1) Decubitus ulcer of sacral area Assessment & Plan: Partial thickness wounds buttocks (L)4cm x (W)4.5cm wound bed viable with shearing periwound. Partial thickness wound upper R buttocks ,wound bed viable with shearing and loose skin periwound. Stable necrosis medial R heel (L)3cm x (W)3cm. Periwound without erythema or induration. Full thickness wound dorsum R 2nd metatarsal (L)2cm x (W)1.8cm x (D)0.5cm .Wound oozing small amt purulent exudate. Tx Plan: Surface support mattress . Reposition at least every 2hours or as tolerated. Off-load heels with pillow. Moisture Barrier to buttocks Q shift and prn. Appreciate Podiatry input for heel and metatarsal wound (2) Malposition of peritoneal dialysis catheter Assessment & Plan: broken right lower quadrant peritoneal catheter noted with leakage. CT reviewed concerning as high risk for infection. broken pieces of catheter noted at skin level. unsure if someone had tried to remove prior? will discuss with family and team about surgery to remove remaining portion Discussed with family. they are aware of catheter and assumed it was removed prior. consent obtained for removal will plan / schedule soon thank you Ezequiel Hayes Aug 31, 2018 16:38
[2018-09-01] VITALS (12 sets, daily range): BP systolic 105–168; BP diastolic 60–96
[2018-09-01] MEDS: NovoLOG Insulin Flexpen SUBQ SCH ×4 (06:00→18:46)
[2018-09-01] MEDS: Levothyroxine 125mcg tab ORAL SCH (06:04)
[2018-09-01 07:31] LABS: BASOPHILS % (AUTO) 0.3 % (0.0-2.0); EOSINOPHILS % (AUTO) 2.6 % (0.0-3.0); HEMATOCRIT 34.3 % (42.0-52.0); HEMOGLOBIN 11.4 G/DL (14.2-18.0); LYMPHOCYTES % (AUTO) 8.9 % (20.0-45.0); MEAN CORPUSCULAR VOLUME 93 FL (80-99); MONOCYTES % (AUTO) 4.1 % (1.0-10.0); PLATELET COUNT 460 K/UL (150-450); WHITE BLOOD COUNT 8.4 K/UL (4.8-10.8)
--- NOTE | 2018-09-01 07:31 | General Progress Note ---
Assessment/Plan Problem List: (1) UTI (urinary tract infection) ICD Codes: N39.0 - Urinary tract infection, site not specified SNOMED: 35890063 Qualifiers: Qualified Codes: T83.511A - Infection and inflammatory reaction due to indwelling urethral catheter, initial encounter; N39.0 - Urinary tract infection , site not specified (2) Severe sepsis ICD Codes: A41.9 - Sepsis, unspecified organism; R65.20 - Severe sepsis without septic shock SNOMED: 87074259 (3) NSTEMI (non-ST elevated myocardial infarction) ICD Codes: I21.4 - Non-ST elevation (NSTEMI) myocardial infarction SNOMED: 170968739 (4) Right lower lobe pneumonia ICD Codes: J18.1 - Lobar pneumonia, unspecified organism SNOMED: 253543576 Qualifiers: Qualified Codes: J18.1 - Lobar pneumonia, unspecified organism (5) Elevated lactic acid level ICD Codes: R79.89 - Other specified abnormal findings of blood chemistry SNOMED: 8793552 Status: stable Assessment/Plan off abx follow up cultures bipap as needed pain rx as needed resp rx needs to have retained PD catheter removed due to high risk of infection. timing of surgery TBD gt feeds dvt/stress ulcer prophlaxis skin care Subjective ROS Limited/Unobtainable: No Constitutional: Reports: weakness HEENT: Reports: no symptoms Cardiovascular: Reports: no symptoms Respiratory: Reports: no symptoms Gastrointestinal/Abdominal: Reports: abdominal pain Genitourinary: Reports: no symptoms Neurologic/Psychiatric: Reports: pre-existing deficit Endocrine: Reports: no symptoms Hematologic/Lymphatic: Reports: no symptoms Allergies: Coded Allergies: No Known Allergies (Unverified , 06/17/18) All Systems: reviewed and negative except above Subjective no events. c/o abd pain. no fevers. off abx. am labs pending. getting wound care. surgery appreciated Objective Last 24 Hour Vital Signs Date Time Temp Pulse Resp B/P (MAP) Pulse Ox O2 Delivery O2 Flow Rate FiO2 09/01/18 06:30 99 Nasal Cannula 2.0 28 09/01/18 06:30 Nasal Cannula 2.0 28 09/01/18 05:20 69 24 98 Full Face 35 09/01/18 04:00 98.0 91 25 167/96 (119) 97 98.0 09/01/18 04:00 86 09/01/18 03:20 66 24 98 Full Face 35 09/01/18 01:34 65 17 98 Full Face 35 09/01/18 00:00 98.0 56 25 135/61 (85) 100 98.0 08/31/18 23:25 68 18 97 Full Face 35 08/31/18 21:00 Nasal Cannula 2.0 08/31/18 20:00 98.1 68 21 149/71 (97) 99 98.1 08/31/18 20:00 68 08/31/18 19:57 68 18 Nasal Cannula 2.0 28 08/31/18 19:57 Nasal Cannula 2.0 28 08/31/18 19:57 99 Nasal Cannula 2.0 28 08/31/18 16:00 73 08/31/18 15:52 97.4 74 20 146/71 (96) 96 97.4 08/31/18 12:40 97.2 71 20 150/71 (97) 96 97.2 08/31/18 12:00 75 08/31/18 10:24 Nasal Cannula 2.0 08/31/18 08:13 97.9 69 20 144/73 (96) 97 97.9 08/31/18 08:00 72 Intake and Output 08/31/18 09/01/18 19:00 07:00 Output Total 300 ml 2000 ml Balance -300 ml -2000 ml Output Urine Total 300 ml 2000 ml Laboratory Tests 09/01/18 06:20: White Blood Count [Pending], Red Blood Count [Pending], Hemoglobin [Pending], Hematocrit [Pending], Mean Corpuscular Volume [Pending], Mean Corpuscular Hemoglobin [Pending], Mean Corpuscular Hemoglobin Concent [Pending], Red Cell Distribution Width [Pending], Platelet Count [Pending], Mean Platelet Volume [ Pending], Neutrophils (%) (Auto) [Pending], Lymphocytes (%) (Auto) [Pending], Monocytes (%) (Auto) [Pending], Eosinophils (%) (Auto) [Pending], Basophils (%) (Auto) [Pending], Prothrombin Time [Pending], Prothromb Time International Ratio [Pending], Activated Partial Thromboplast Time [Pending], Sodium Level [ Pending], Potassium Level [Pending], Chloride Level [Pending], Carbon Dioxide Level [Pending], Blood Urea Nitrogen [Pending], Creatinine [Pending], Estimat Glomerular Filtration Rate [Pending], Glucose Level [Pending], Calcium Level [ Pending], Total Bilirubin [Pending], Aspartate Amino Transf (AST/SGOT) [Pending] , Alanine Aminotransferase (ALT/SGPT) [Pending], Alkaline Phosphatase [Pending] , Total Protein [Pending], Albumin [Pending], Globulin [Pending] Height (Feet): 5 Height (Inches): 6.00 Weight (Pounds): 127 Objective General Appearance: WD/WN, alert Neck: supple Cardiovascular: normal rate, regular rhythm Respiratory/Chest: chest wall non-tender, lungs with farhat rhonchi Abdomen: normal bowel sounds, non tender, soft, no organomegaly Neurologic: unresponsive, aphasia Michael Zuniga MD Sep 01, 2018 07:31
[2018-09-01 07:34] LABS: INR 0.9 (0.9-1.1)
[2018-09-01] MEDS: Heparin 5000 units/ml inj SUBQ SCH ×2 (08:00→21:27)
[2018-09-01] MEDS: Aspirin Baby 81mg GT SCH (08:01)
[2018-09-01 08:12] LABS: ALANINE AMINOTRANSFERASE 16 U/L (12-78); ALBUMIN 1.9 G/DL (3.4-5.0); ALBUMIN/GLOBULIN RATIO 0.3 (1.0-2.7); ALKALINE PHOSPHATASE 83 U/L (46-116); ANION GAP 9 mmol/L (5-15); ASPARTATE AMINO TRANSFERASE 19 U/L (15-37); BILIRUBIN,TOTAL 0.2 MG/DL (0.2-1.0); BLOOD UREA NITROGEN 8 mg/dL (7-18); CALCIUM 8.8 MG/DL (8.5-10.1); CARBON DIOXIDE 27 MMOL/L (21-32); CHLORIDE 102 MMOL/L (98-107); CREATININE 0.6 MG/DL (0.55-1.30); POTASSIUM 3.4 MMOL/L (3.5-5.1); SODIUM 138 MMOL/L (136-145)
--- NOTE | 2018-09-01 08:46 | Pulmonology Progress Note ---
Assessment/Plan Assessment/Plan IMPRESSION: 1. Respiratory failure, resolved 2. Sepsis with shock. improved 3. Dysphagia. 4. G-tube. 5. CVA. 6. Altered mental status. 7. Aspiration pneumonia 8. Severe protein-calorie malnutrition. 9. Diabetes. PLAN respiratory care as is aspiration precautions as is antibiotics off imaging noted; repeat for change and clearing close follow up for change DVT prophylaxis primary MD note reviewed impression, plan, and exam edited and reviewed in detail care discussed with RN Subjective ROS Limited/Unobtainable: Yes Allergies: Coded Allergies: No Known Allergies (Unverified , 06/17/18) Subjective reviewed care off BIPAP and stable currently confused off antibiotics Objective Last 24 Hour Vital Signs Date Time Temp Pulse Resp B/P (MAP) Pulse Ox O2 Delivery O2 Flow Rate FiO2 09/01/18 06:30 99 Nasal Cannula 2.0 28 09/01/18 06:30 Nasal Cannula 2.0 28 09/01/18 05:20 69 24 98 Full Face 35 09/01/18 04:00 98.0 91 25 167/96 (119) 97 98.0 09/01/18 04:00 86 09/01/18 03:20 66 24 98 Full Face 35 09/01/18 01:34 65 17 98 Full Face 35 09/01/18 00:00 98.0 56 25 135/61 (85) 100 98.0 08/31/18 23:25 68 18 97 Full Face 35 08/31/18 21:00 Nasal Cannula 2.0 08/31/18 20:00 98.1 68 21 149/71 (97) 99 98.1 08/31/18 20:00 68 08/31/18 19:57 68 18 Nasal Cannula 2.0 28 08/31/18 19:57 Nasal Cannula 2.0 28 08/31/18 19:57 99 Nasal Cannula 2.0 28 08/31/18 16:00 73 08/31/18 15:52 97.4 74 20 146/71 (96) 96 97.4 08/31/18 12:40 97.2 71 20 150/71 (97) 96 97.2 08/31/18 12:00 75 08/31/18 10:24 Nasal Cannula 2.0 Intake and Output 08/31/18 09/01/18 19:00 07:00 Output Total 300 ml 2000 ml Balance -300 ml -2000 ml Output Urine Total 300 ml 2000 ml Objective GENERAL: Ill-appearing male, withdrawn, nonverbal. ALOC LUNGS: minimal rhonchi, moderate air entry, symmetric. CARDIAC: Normal S1, S2. RRR without murmurs, rubs, or gallops. ABDOMEN: Soft, nontender, nondistended. no distention EXTREMITIES: No cyanosis or clubbing. no edema SKIN: noted GENITOURINARY: The patient has suprapubic catheter. NEUROLOGIC: Neurologically overall same nonverbal at present reviewed and edited Laboratory Tests 09/01/18 06:20: White Blood Count 8.4, Red Blood Count 3.70L, Hemoglobin 11.4L, Hematocrit 34.3L , Mean Corpuscular Volume 93, Mean Corpuscular Hemoglobin 30.9, Mean Corpuscular Hemoglobin Concent 33.4, Red Cell Distribution Width 15.0H, Platelet Count 460H, Mean Platelet Volume 5.3L, Neutrophils (%) (Auto) 84.0H, Lymphocytes (%) (Auto) 8.9L, Monocytes (%) (Auto) 4.1, Eosinophils (%) (Auto) 2.6, Basophils (%) (Auto) 0.3, Prothrombin Time 9.9, Prothromb Time International Ratio 0.9, Activated Partial Thromboplast Time 27, Sodium Level 138, Potassium Level 3.4L, Chloride Level 102, Carbon Dioxide Level 27, Anion Gap 9, Blood Urea Nitrogen 8, Creatinine 0.6, Estimat Glomerular Filtration Rate , Glucose Level 162H, Calcium Level 8.8, Total Bilirubin 0.2, Aspartate Amino Transf (AST/SGOT) 19, Alanine Aminotransferase (ALT/SGPT) 16, Alkaline Phosphatase 83, Total Protein 8.1, Albumin 1.9L, Globulin 6.2, Albumin/Globulin Ratio 0.3L Current Medications Medications (Trade) Dose Ordered Sig/Benjamin Route PRN Reason Start Time Stop Time Status Last Admin Dose Admin Acetaminophen (Tylenol) 650 mg Q4H PRN ORAL Mild Pain/Temp > 100.5 08/28/18 09:00 09/27/18 08:59 08/28/18 10:16 Acetaminophen/ Hydrocodone Bitart ([place] 5/325) 1 tab Q6H PRN ORAL For Pain 08/29/18 23:30 09/05/18 23:29 Aspirin (ASA) 81 mg DAILY GT 08/23/18 09:00 09/22/18 08:59 08/30/18 08:29 Dextrose (Dextrose 50%) 25 ml Q30M PRN IV Hypoglycemia 08/21/18 20:00 09/20/18 19:59 Dextrose (Dextrose 50%) 50 ml Q30M PRN IV Hypoglycemia 08/21/18 20:00 09/20/18 19:59 Heparin Sodium (Porcine) (Heparin 5000 units/ml) 5,000 units EVERY 12 HOURS SUBQ 08/21/18 21:00 09/20/18 20:59 08/31/18 08:20 Insulin Aspart (NovoLOG) EVERY 6 HOURS SUBQ 08/23/18 12:00 09/22/18 11:59 08/31/18 17:16 Lansoprazole (Prevacid) 30 mg DAILY GT 08/25/18 09:00 09/24/18 08:59 08/30/18 08:29 Levothyroxine Sodium (Synthroid) 125 mcg DAILY@0630 ORAL 08/24/18 06:30 09/23/18 06:29 09/01/18 06:04 Morphine Sulfate (Morphine Sulfate) 1 mg Q4H PRN IVP Moderate Pain(4-6) 08/29/18 20:54 09/05/18 20:53 James Langston MD Sep 01, 2018 08:46
--- NOTE | 2018-09-01 09:25 | Urology Progress Note ---
Assessment/Plan Assessment/Plan 1. Urinary retention with chronic suprapubic tube. 2. Benign prostatic hypertrophy history. 3. Neurogenic bladder. 4. Urinary tract infection and colonization. 5. Hematuria. 6. Proteinuria. keep SP tube, last exchanged 08/23 hand irrigate PRN cont with abx as ordered cysto later peritoneal cath, management per surg consider recheck urine cx at some point d/w Dr. Hayes Subjective Allergies: Coded Allergies: No Known Allergies (Unverified , 06/17/18) Subjective all noted, looks comfortable Objective Last 24 Hour Vital Signs Date Time Temp Pulse Resp B/P (MAP) Pulse Ox O2 Delivery O2 Flow Rate FiO2 09/01/18 06:30 99 Nasal Cannula 2.0 28 09/01/18 06:30 Nasal Cannula 2.0 28 09/01/18 05:20 69 24 98 Full Face 35 09/01/18 04:00 98.0 91 25 167/96 (119) 97 98.0 09/01/18 04:00 86 09/01/18 03:20 66 24 98 Full Face 35 09/01/18 01:34 65 17 98 Full Face 35 09/01/18 00:00 98.0 56 25 135/61 (85) 100 98.0 08/31/18 23:25 68 18 97 Full Face 35 08/31/18 21:00 Nasal Cannula 2.0 08/31/18 20:00 98.1 68 21 149/71 (97) 99 98.1 08/31/18 20:00 68 08/31/18 19:57 68 18 Nasal Cannula 2.0 28 08/31/18 19:57 Nasal Cannula 2.0 28 08/31/18 19:57 99 Nasal Cannula 2.0 28 08/31/18 16:00 73 08/31/18 15:52 97.4 74 20 146/71 (96) 96 97.4 08/31/18 12:40 97.2 71 20 150/71 (97) 96 97.2 08/31/18 12:00 75 08/31/18 10:24 Nasal Cannula 2.0 Intake and Output 08/31/18 09/01/18 19:00 07:00 Output Total 300 ml 2000 ml Balance -300 ml -2000 ml Output Urine Total 300 ml 2000 ml Microbiology Date/Time Source Procedure Growth Status 08/21/18 15:15 Blood Blood Culture - Final NO GROWTH AFTER 5 DAYS Complete 08/23/18 18:45 Wound Gram Stain - Final Complete 08/23/18 18:45 Wound Culture - Final Staphylococcus Aureus - Mrsa Complete 08/23/18 11:30 Sputum Gram Stain - Final Complete 08/23/18 11:30 Sputum Sputum Culture - Final NORMAL UPPER RESPIRATORY THEO PRESENT Complete 08/25/18 17:00 Stool Clostridium difficile Toxin Assay - Final Complete 08/21/18 15:15 Urine,Clean Catch Urine Culture - Final Providencia Stuartii Complete 08/21/18 17:07 Rectum - Final NO CARBAPENEM-RESISTANT ENTEROBACTERI... Complete Current Medications Medications (Trade) Dose Ordered Sig/Benjamin Route PRN Reason Start Time Stop Time Status Last Admin Dose Admin Acetaminophen (Tylenol) 650 mg Q4H PRN ORAL Mild Pain/Temp > 100.5 08/28/18 09:00 09/27/18 08:59 08/28/18 10:16 Acetaminophen/ Hydrocodone Bitart ([place] 5/325) 1 tab Q6H PRN ORAL For Pain 08/29/18 23:30 09/05/18 23:29 Aspirin (ASA) 81 mg DAILY GT 08/23/18 09:00 09/22/18 08:59 08/30/18 08:29 Dextrose (Dextrose 50%) 25 ml Q30M PRN IV Hypoglycemia 08/21/18 20:00 09/20/18 19:59 Dextrose (Dextrose 50%) 50 ml Q30M PRN IV Hypoglycemia 08/21/18 20:00 09/20/18 19:59 Heparin Sodium (Porcine) (Heparin 5000 units/ml) 5,000 units EVERY 12 HOURS SUBQ 08/21/18 21:00 09/20/18 20:59 08/31/18 08:20 Insulin Aspart (NovoLOG) EVERY 6 HOURS SUBQ 08/23/18 12:00 09/22/18 11:59 08/31/18 17:16 Lansoprazole (Prevacid) 30 mg DAILY GT 08/25/18 09:00 09/24/18 08:59 09/01/18 09:22 Levothyroxine Sodium (Synthroid) 125 mcg DAILY@0630 ORAL 08/24/18 06:30 09/23/18 06:29 09/01/18 06:04 Morphine Sulfate (Morphine Sulfate) 1 mg Q4H PRN IVP Moderate Pain(4-6) 08/29/18 20:54 09/05/18 20:53 Laboratory Tests 09/01/18 06:20: White Blood Count 8.4, Red Blood Count 3.70L, Hemoglobin 11.4L, Hematocrit 34.3L , Mean Corpuscular Volume 93, Mean Corpuscular Hemoglobin 30.9, Mean Corpuscular Hemoglobin Concent 33.4, Red Cell Distribution Width 15.0H, Platelet Count 460H, Mean Platelet Volume 5.3L, Neutrophils (%) (Auto) 84.0H, Lymphocytes (%) (Auto) 8.9L, Monocytes (%) (Auto) 4.1, Eosinophils (%) (Auto) 2.6, Basophils (%) (Auto) 0.3, Prothrombin Time 9.9, Prothromb Time International Ratio 0.9, Activated Partial Thromboplast Time 27, Sodium Level 138, Potassium Level 3.4L, Chloride Level 102, Carbon Dioxide Level 27, Anion Gap 9, Blood Urea Nitrogen 8, Creatinine 0.6, Estimat Glomerular Filtration Rate , Glucose Level 162H, Calcium Level 8.8, Total Bilirubin 0.2, Aspartate Amino Transf (AST/SGOT) 19, Alanine Aminotransferase (ALT/SGPT) 16, Alkaline Phosphatase 83, Total Protein 8.1, Albumin 1.9L, Globulin 6.2, Albumin/Globulin Ratio 0.3L Height (Feet): 5 Height (Inches): 6.00 Weight (Pounds): 127 Objective exam stable, urine clearing ALEJANDRO COLLIER Sep 01, 2018 09:25
--- NOTE | 2018-09-01 12:07 | Pre-Procedure Note/Attestation ---
Pre-Procedure Note/Attestation Complete Prior to Procedure Planned Procedure: not applicable Procedure Narrative: removal of malpositioned abdominal peritoneal catheter Indications for Procedure Pre-Operative Diagnosis: malpositioned abdominal peritoneal catheter Attestation I attest that I discussed the nature of the procedure; its benefits; risks and complications; and alternatives (and the risks and benefits of such alternatives ), prior to the procedure, with the patient (or the patient's legal product sales representative). I attest that, if there was a reasonable possibility of needing a blood transfusion, the patient (or the patient's legal product sales representative) was given the [facility] standardized written summary, pursuant to the Bernard Brianna Blood Safety Act ([place] Health and Safety Code # 1645, as amended). I attest that I re-evaluated the patient just prior to the surgery and that there has been no change in the patient's H&P, except as documented below: Ezequiel Hayes Sep 01, 2018 12:07
--- NOTE | 2018-09-01 12:47 | Infectious Diseases Prog Note ---
Assessment/Plan Assessment/Plan A: Complicated UTI treated Pneumonia treated Hypoxic respiratory failure Dementia DM HPN Sacral stage 3 pressure ulcer Broken peritoneal catheter P; Observe off antibiotic Will have surgery to remove broken catheter Subjective ROS Limited/Unobtainable: Yes Allergies: Coded Allergies: No Known Allergies (Unverified , 06/17/18) Objective Vital Signs Last 24 Hour Vital Signs Date Time Temp Pulse Resp B/P (MAP) Pulse Ox O2 Delivery O2 Flow Rate FiO2 09/01/18 09:00 Nasal Cannula 2.0 09/01/18 08:00 98.3 93 19 168/92 (117) 96 98.3 09/01/18 08:00 94 09/01/18 06:30 99 Nasal Cannula 2.0 28 09/01/18 06:30 Nasal Cannula 2.0 28 09/01/18 05:20 69 24 98 Full Face 35 09/01/18 04:00 98.0 91 25 167/96 (119) 97 98.0 09/01/18 04:00 86 09/01/18 03:20 66 24 98 Full Face 35 09/01/18 01:34 65 17 98 Full Face 35 09/01/18 00:00 98.0 56 25 135/61 (85) 100 98.0 08/31/18 23:25 68 18 97 Full Face 35 08/31/18 21:00 Nasal Cannula 2.0 08/31/18 20:00 98.1 68 21 149/71 (97) 99 98.1 08/31/18 20:00 68 08/31/18 19:57 68 18 Nasal Cannula 2.0 28 08/31/18 19:57 Nasal Cannula 2.0 28 08/31/18 19:57 99 Nasal Cannula 2.0 28 08/31/18 16:00 73 08/31/18 15:52 97.4 74 20 146/71 (96) 96 97.4 Height (Feet): 5 Height (Inches): 6.00 Weight (Pounds): 127 General Appearance: no acute distress HEENT: normocephalic Respiratory/Chest: rhonchi - bilaterally Cardiovascular: normal rate Abdomen: soft, non tender, other - GT feeding Genitourinary: other - suprapubic catheter Neurologic/Psychiatric: disoriented Laboratory Tests Test 09/01/18 06:20 White Blood Count 8.4 K/UL (4.8-10.8) Red Blood Count 3.70 M/UL (4.70-6.10) L Hemoglobin 11.4 G/DL (14.2-18.0) L Hematocrit 34.3 % (42.0-52.0) L Mean Corpuscular Volume 93 FL (80-99) Mean Corpuscular Hemoglobin 30.9 PG (27.0-31.0) Mean Corpuscular Hemoglobin Concent 33.4 G/DL (32.0-36.0) Red Cell Distribution Width 15.0 % (11.6-14.8) H Platelet Count 460 K/UL (150-450) H Mean Platelet Volume 5.3 FL (6.5-10.1) L Neutrophils (%) (Auto) 84.0 % (45.0-75.0) H Lymphocytes (%) (Auto) 8.9 % (20.0-45.0) L Monocytes (%) (Auto) 4.1 % (1.0-10.0) Eosinophils (%) (Auto) 2.6 % (0.0-3.0) Basophils (%) (Auto) 0.3 % (0.0-2.0) Prothrombin Time 9.9 SEC (9.30-11.50) Prothromb Time International Ratio 0.9 (0.9-1.1) Activated Partial Thromboplast Time 27 SEC (23-33) Sodium Level 138 MMOL/L (136-145) Potassium Level 3.4 MMOL/L (3.5-5.1) L Chloride Level 102 MMOL/L (98-107) Carbon Dioxide Level 27 MMOL/L (21-32) Anion Gap 9 mmol/L (5-15) Blood Urea Nitrogen 8 mg/dL (7-18) Creatinine 0.6 MG/DL (0.55-1.30) Estimat Glomerular Filtration Rate mL/min (>60) Glucose Level 162 MG/DL (74-106) H Calcium Level 8.8 MG/DL (8.5-10.1) Total Bilirubin 0.2 MG/DL (0.2-1.0) Aspartate Amino Transf (AST/SGOT) 19 U/L (15-37) Alanine Aminotransferase (ALT/SGPT) 16 U/L (12-78) Alkaline Phosphatase 83 U/L (46-116) Total Protein 8.1 G/DL (6.4-8.2) Albumin 1.9 G/DL (3.4-5.0) L Globulin 6.2 g/dL Albumin/Globulin Ratio 0.3 (1.0-2.7) L Current Medications Medications (Trade) Dose Ordered Sig/Benjamin Route PRN Reason Start Time Stop Time Status Last Admin Dose Admin Acetaminophen (Tylenol) 650 mg Q4H PRN ORAL Mild Pain/Temp > 100.5 08/28/18 09:00 09/27/18 08:59 08/28/18 10:16 Acetaminophen/ Hydrocodone Bitart ([place] 5/325) 1 tab Q6H PRN ORAL For Pain 08/29/18 23:30 09/05/18 23:29 Aspirin (ASA) 81 mg DAILY GT 08/23/18 09:00 09/22/18 08:59 08/30/18 08:29 Dextrose (Dextrose 50%) 25 ml Q30M PRN IV Hypoglycemia 08/21/18 20:00 09/20/18 19:59 Dextrose (Dextrose 50%) 50 ml Q30M PRN IV Hypoglycemia 08/21/18 20:00 09/20/18 19:59 Heparin Sodium (Porcine) (Heparin 5000 units/ml) 5,000 units EVERY 12 HOURS SUBQ 08/21/18 21:00 09/20/18 20:59 08/31/18 08:20 Insulin Aspart (NovoLOG) EVERY 6 HOURS SUBQ 08/23/18 12:00 09/22/18 11:59 08/31/18 17:16 Lansoprazole (Prevacid) 30 mg DAILY GT 08/25/18 09:00 09/24/18 08:59 09/01/18 09:22 Levothyroxine Sodium (Synthroid) 125 mcg DAILY@0630 ORAL 08/24/18 06:30 09/23/18 06:29 09/01/18 06:04 Morphine Sulfate (Morphine Sulfate) 1 mg Q4H PRN IVP Moderate Pain(4-6) 08/29/18 20:54 09/05/18 20:53 Slade Odonnell MD Sep 01, 2018 12:47
[2018-09-01] MEDS ORDERED: Lidocaine 1% 10mg/ml/Epi 0.005mg/ml 30ml vial INJ ONE (13:33)
[2018-09-01] MEDS ORDERED: Bacitracin 50000 Units Vial ONE (13:34)
[2018-09-01] MEDS ORDERED: NeoSporin Gu Irrig 1ml Amp IRRIG ONE (13:34)
[2018-09-01] MEDS ORDERED: LR 1000ml ONE (14:30)
[2018-09-01] MEDS ORDERED: NS Irrig 1000ml ONE (14:30)
[2018-09-01] MEDS ORDERED: Sterile Water Irrig 1000ml IRRIG ONE (14:30)
[2018-09-01] MEDS ORDERED: Lidocaine 1% MPF 10mg/ml 5ml ONE (14:40)
[2018-09-01] MEDS ORDERED: Norco 5mg/325mg tab ORAL PRN (15:00)
[2018-09-01] MEDS ORDERED: DiphenhydrAMINE 50mg/ml Inj IVP PRN (15:00)
[2018-09-01] MEDS ORDERED: Metoclopramide 10mg/2ml Inj IVP PRN (15:00)
[2018-09-01] MEDS ORDERED: fentaNYL 100 mcg/2 mL IV PRN (15:00)
[2018-09-01] MEDS ORDERED: Midazolam 2mg/2ml Inj IVP PRN (15:00)
[2018-09-01] MEDS ORDERED: LORazepam Inj 2mg/ml 1ml IV PRN (15:00)
[2018-09-01] MEDS ORDERED: Atropine Sulfate 0.4mg/ml inj IVP PRN (15:00)
[2018-09-01] MEDS ORDERED: oxyCODONE HCL/Acetaminophen 5/325mg ORAL PRN (15:00)
[2018-09-01] MEDS ORDERED: HYDROcodone/Acetamin 7.5/325 tab ORAL PRN (15:00)
[2018-09-01] MEDS ORDERED: LR 1000ml 1,000 ML IVLG SCH (15:00)
[2018-09-01] MEDS ORDERED: Meperidine 50mg/ml Inj(FOR RIGORS ONLY) IVP PRN (15:00)
[2018-09-01] MEDS ORDERED: Hydromorphone 0.5mg/0.5ml inj IVP PRN (15:00)
--- NOTE | 2018-09-01 15:02 | Anethesia Preoperative Eval ---
Anesthesia Pre-op PMH/ROS General Date of Evaluation: Sep 01, 2018 Time of Evaluation: 14:32 Anesthesiologist: Armando ASA Score: ASA 4 Mallampati Score Class I : Soft palate, uvula, fauces, pillars visible Class II: Soft palate, uvula, fauces visible Class III: Soft palate, base of uvula visible Class IV: Only hard plate visible Mallampati Classification: Class II Surgeon: Lesley Diagnosis: Broken Tunneled Catheter Surgical Procedure: Remove Tunneled Intraperitoneal Catheter Anesthesia History: none Family History: no anesthesia problems Allergies: Coded Allergies: No Known Allergies (Unverified , 06/17/18) Medications: see eMAR Patient NPO?: Yes NPO Date: Aug 31, 2018 NPO Time: 0000 Past Medical History Cardiovascular: Reports: HTN, CAD - CHF, other - HL Pulmonary: Reports: other - Pneumonia Gastrointestinal/Genitourinary: Reports: GERD, other - UTI, BPH Neurologic/Psychiatric: Reports: dementia - Epilepsy, CVA Endocrine: Reports: DM, hypothyroidism Hematology/Immune: Reports: anemia Anesthesia Pre-op Phys. Exam Physician Exam Last Vital Signs Date Time Temp Pulse Resp B/P (MAP) Pulse Ox O2 Delivery O2 Flow Rate FiO2 09/01/18 12:00 88 09/01/18 12:00 97.3 20 141/80 (100) 96 97.3 09/01/18 09:00 Nasal Cannula 2.0 09/01/18 06:30 28 Constitutional: NAD Neurologic: CN 2-12 intact Cardiovascular: RRR Respiratory: CTA Gastrointestinal: S/NT/ND Airway Exam Mallampati Score: Class II MO: limited ROM: limited Teeth: missing Anesthesia Pre-op A/P Labs Hematology Test 09/01/18 06:20 White Blood Count 8.4 K/UL (4.8-10.8) Red Blood Count 3.70 M/UL (4.70-6.10) L Hemoglobin 11.4 G/DL (14.2-18.0) L Hematocrit 34.3 % (42.0-52.0) L Mean Corpuscular Volume 93 FL (80-99) Mean Corpuscular Hemoglobin 30.9 PG (27.0-31.0) Mean Corpuscular Hemoglobin Concent 33.4 G/DL (32.0-36.0) Red Cell Distribution Width 15.0 % (11.6-14.8) H Platelet Count 460 K/UL (150-450) H Mean Platelet Volume 5.3 FL (6.5-10.1) L Neutrophils (%) (Auto) 84.0 % (45.0-75.0) H Lymphocytes (%) (Auto) 8.9 % (20.0-45.0) L Monocytes (%) (Auto) 4.1 % (1.0-10.0) Eosinophils (%) (Auto) 2.6 % (0.0-3.0) Basophils (%) (Auto) 0.3 % (0.0-2.0) Coagulation Test 09/01/18 06:20 Prothrombin Time 9.9 SEC (9.30-11.50) Prothromb Time International Ratio 0.9 (0.9-1.1) Activated Partial Thromboplast Time 27 SEC (23-33) Chemistry Test 09/01/18 06:20 Sodium Level 138 MMOL/L (136-145) Potassium Level 3.4 MMOL/L (3.5-5.1) L Chloride Level 102 MMOL/L (98-107) Carbon Dioxide Level 27 MMOL/L (21-32) Anion Gap 9 mmol/L (5-15) Blood Urea Nitrogen 8 mg/dL (7-18) Creatinine 0.6 MG/DL (0.55-1.30) Estimat Glomerular Filtration Rate mL/min (>60) Glucose Level 162 MG/DL (74-106) H Calcium Level 8.8 MG/DL (8.5-10.1) Total Bilirubin 0.2 MG/DL (0.2-1.0) Aspartate Amino Transf (AST/SGOT) 19 U/L (15-37) Alanine Aminotransferase (ALT/SGPT) 16 U/L (12-78) Alkaline Phosphatase 83 U/L (46-116) Total Protein 8.1 G/DL (6.4-8.2) Albumin 1.9 G/DL (3.4-5.0) L Globulin 6.2 g/dL Albumin/Globulin Ratio 0.3 (1.0-2.7) L Risk Assessment & Plan Assessment: ASA 4 Plan: GA Status Change Before Surgery: Capo Francois MD Sep 01, 2018 15:02
--- NOTE | 2018-09-01 15:03 | Immediate Post-Op Evaluation ---
Immediate Post-Op Evalulation Immediate Post-Op Evalulation Procedure: Remove Tunneled Intraperitoneal Catheter Date of Evaluation: Sep 01, 2018 Time of Evaluation: 14:39 IV Fluids: 1200 LR Blood Products: 0 Estimated Blood Loss: 3 Urinary Output: 0 Blood Pressure Systolic: 130 Blood Pressure Diastolic: 74 Pulse Rate: 70 Respiratory Rate: 16 O2 Sat by Pulse Oximetry: 100 Temperature (Fahrenheit): 97 Pain Score (1-10): 2 Nausea: No Vomiting: No Complications 0 Patient Status: awake, reacts, patent, none Hydration Status: adequate Capo Roberts MD Sep 01, 2018 15:03
--- NOTE | 2018-09-01 15:20 | Brief Operative Note ---
Immediate Post Operative Note Operative Note Pre-op Diagnosis: malpositioned abdominal peritoneal catheter Procedure: 1. removal of tunneled abdominal peritoneal catheter 2. evacuation of peritoneal abscess Post-op Diagnosis: 1. broken abdominal peritoneal catheter 2. al-catheter walled off abscess Surgeon: yobani Anesthesiologist: trinidad Anesthesia: general, local Specimen: yes Complications: none Condition: stable Fluids: see records Estimated Blood Loss: minimal Drains: luis Implant(s) used?: No Ezequiel Hayes Sep 01, 2018 15:20
--- NOTE | 2018-09-01 23:00 | Operative Note - Dictated ---
DATE OF OPERATION: 09/01/2018 PREOPERATIVE DIAGNOSIS: Malpositioned tunneled peritoneal catheter. POSTOPERATIVE DIAGNOSES: 1. Malpositioned tunneled broken abdominal peritoneal catheter. 2. Pericatheter walled-off abscess. OPERATION PERFORMED: 1. Removal of tunneled abdominal peritoneal catheter. 2. Evacuation of peritoneal abscess. ATTENDING SURGEON: Ezequiel Hayes M.D. HOUSE SITTER: None. ANESTHESIOLOGIST: Capo Roberts M.D. ANESTHESIA: General ROLL REPAIRER plus local. SPECIMENS: Catheter and cultures sent for review. COMPLICATIONS: None. CONDITION: Stable. FLUIDS: Please see anesthesia records. WOUND CLASSIFICATION: Class III. ESTIMATED BLOOD LOSS: Minimal. DRAINS: Quarter-inch Denny. IMPLANTS: None. INDICATIONS FOR PROCEDURE: The patient is an 83-year-old male who during admission at [facility] was noted to have drainage from a right lower abdominal wall defect, at which time Surgery was called for evaluation. CT was performed and a broken malpositioned peritoneal catheter was identified through two small punctate sized holes with drainage of fluid. CT scan demonstrated the catheter intraperitoneal with some surrounding changes with catheter being extending towards the abdominal wall at the location of the wounds noted draining. The patient is unable to provide history and the power of litigation attorney was contacted and states that she was aware of this catheter, but unsure when it was placed or what it was for and thought it had been removed prior at a different facility. She was asked about it and asked them to remove it and assumed that it was. Currently given the location of the catheter and drainage, the patient presented with leukocytosis with a shift. There are significant concerns for potential infection and therefore decision was made after discussing in detail with the power of litigation attorney who consented to procedure for removal of this broken malpositioned peritoneal tunneled catheter. Consent was obtained. The patient was scheduled for 09/01/2018. OPERATIVE NOTE: The patient was taken to the operating room and placed on the operating table in supine position with bilateral arms out. All bony prominences well padded. SCDs were placed. General anesthesia was induced and the patient was intubated. The abdomen was then clipped, prepped, and draped in the standard surgical fashion. The patient already had a suprapubic catheter prior to entering into the operating room. The patient has a G-tube prior to entering into the operating room. The abdomen was prepped and draped in the standard surgical fashion. Preoperative time-out was taken identifying the patient, procedure, operative staff, and surgical staff, identified before. Following this, the abdomen was inspected in further detail. There is a midline incision noted that is well healed and in the right lower quadrant, there is a transverse incision noted followed by two less than 1 cm incisions, which are now opened, and in the more cephalad hole, there is the end of a broken catheter with spiral metal housing identified, and in the inferior caudal hole, there is the area of catheter tunneling identified with the catheter underneath and the end of the catheter cannot be noted. At this time, decision was made to infiltrate local anesthetic in the inferior incision and open it and carry it down, following the tunneled tract until the peritoneal catheter could be identified. Local anesthetic was infiltrated. A fresh #15 scalpel was used to make a 2 to 3 cm incision overlying the catheter direction. The catheter was pulled through from the cephalad to caudal location and pulled out of this incision. Following this, catheter was followed down to the peritoneal cavity catheter tip, at which time a second piece of catheter was identified and noted and removed. This piece was approximately 5 to 6 cm in length and one tip had the broken catheter and the second tip had a port site. Following this, the catheter was then tracked down and the tip noted and removed. The tip of this catheter was intact and was a Silastic balloon tip catheter I had never seen before. Seems like a fairly old catheter, unsure of its actual relevant significance or use. The two-piece catheter was sent to pathology for review. Where the catheter tip had ended in this silastic tubing, there was an abscess cavity, which was well formed and required evacuation. The abscess cavity was evacuated and cultures sent to microbiology. Following this, the cavity was irrigated with copious amounts of sterile saline. At this time, hemostasis was achieved with electrocautery. Given the chronicity, the catheter tract was debrided using a curette and dried gauze. At this time, given the area and the size, decision was made to close, but have a Denny catheter for drainage. A [place] catheter was passed through the most superior cephalad, small less than 1 cm punctate hole and tracked down to the cavity. The incision and subcutaneous tissue were then reapproximated using 3-0 Vicryl sutures followed by closure of the skin of the incision using surgical skin rubio. The quarter-inch Denny drain was sutured to the skin using a 3-0 nylon suture. Following this, dressings were applied with plans for allowing drainage, granulation tissue healing, and later removal of rubio and [place] catheter. The patient tolerated the procedure well. Ezequiel Hayes M.D. DR: ELANA JOB#: [id number] CC: ROSALIA
[2018-09-02] VITALS: BP 130/70
[2018-09-02] MEDS: 1/2NS w/KCl 20mEq 1000ml 1,000 ML IV SCH ×2 (02:45→16:56)
--- NOTE | 2018-09-02 03:00 | Progress Note ---
DATE: 09/01/2018 CARDIOLOGY PROGRESS NOTE SUBJECTIVE: The patient is status post surgical removal of retained peritoneal dialysis catheter today. No perioperative hemodynamic compromise was noted. OBJECTIVE: GENERAL: The patient is awake and is alert. VITAL SIGNS: Blood pressure 105/60, pulse 75, respiratory rate 24, and afebrile. ABDOMEN: Surgical site clean and dry with no active drainage. LUNGS: Clear. CARDIAC: Regular. Normal S1, S2 with a fourth heart sound. EXTREMITIES: No edema. LABORATORY DATA: White count 8.4 and hemoglobin 11.4. Potassium 3.4. Albumin 1.9. IMPRESSION: Postoperative hemodynamic status is stable. PLAN: 1. Volume support. 2. Antimicrobials. 3. Pain control. 4. Respiratory hygiene. 5. Potassium replacement. 6. DVT prophylaxis. Bryon Ramirez M.D. DR: MARIEL JOB#: [id number] CC:
[2018-09-02 04:00] VITALS: BP 141/70
--- NOTE | 2018-09-02 04:00 | Progress Note ---
CARDIOLOGY PROGRESS NOTE Late entry 08/31/2018 SUBJECTIVE: The patient is noted to have a retained peritoneal dialysis catheter in his abdomen and is felt to be at high-risk for infection due to open trach externally surgical plantation planned tomorrow. OBJECTIVE: VITAL SIGNS: Blood pressure 139/73, pulse 77, respiratory rate 20, and afebrile. LUNGS: With few rhonchi. CARDIAC: Regular rhythm and rate. HEART: Normal S1 and S2 with a fourth heart sound. ABDOMEN: Soft. Right lower quadrant tube site noted. EXTREMITIES: No edema. Toe on the right second digit is not draining at this time, but has dressing in place. LABORATORY DATA: Pending today. IMPRESSION: 1. Multiple medical problems, slowly improving. 2. Stable from cardiovascular standpoint for general anesthesia and removal of peritoneal dialysis catheter. 3. Perioperative cardiovascular risk minimally increased. 4. Medication regimen reviewed. IV fluids adjusted for surgical intervention tomorrow. Bryon Ramirez M.D. DR: MARIO JOB#: [id number] CC:
[2018-09-02] MEDS: NovoLOG Insulin Flexpen SUBQ SCH ×4 (05:45→16:55)
[2018-09-02] MEDS: Levothyroxine 125mcg tab ORAL SCH (05:48)
[2018-09-02 06:27] LABS: HEMATOCRIT 31.9 % (42.0-52.0); HEMOGLOBIN 10.3 G/DL (14.2-18.0); MEAN CORPUSCULAR VOLUME 93 FL (80-99); PLATELET COUNT 439 K/UL (150-450); RED BLOOD COUNT 3.42 M/UL (4.70-6.10); RED CELL DISTRIBUTION WIDTH 15.8 % (11.6-14.8); WHITE BLOOD COUNT 7.1 K/UL (4.8-10.8)
[2018-09-02 06:49] LABS: ALANINE AMINOTRANSFERASE 9 U/L (12-78); ALBUMIN 1.7 G/DL (3.4-5.0); ALBUMIN/GLOBULIN RATIO 0.3 (1.0-2.7); ALKALINE PHOSPHATASE 78 U/L (46-116); ANION GAP 6 mmol/L (5-15); ASPARTATE AMINO TRANSFERASE 16 U/L (15-37); BILIRUBIN,TOTAL 0.1 MG/DL (0.2-1.0); BLOOD UREA NITROGEN 11 mg/dL (7-18); CALCIUM 8.9 MG/DL (8.5-10.1); CARBON DIOXIDE 29 MMOL/L (21-32); CHLORIDE 103 MMOL/L (98-107); CREATININE 0.7 MG/DL (0.55-1.30); POTASSIUM 4.2 MMOL/L (3.5-5.1); SODIUM 138 MMOL/L (136-145)
--- NOTE | 2018-09-02 07:15 | General Progress Note ---
Assessment/Plan Problem List: (1) UTI (urinary tract infection) ICD Codes: N39.0 - Urinary tract infection, site not specified SNOMED: 28488917 Qualifiers: Qualified Codes: T83.511A - Infection and inflammatory reaction due to indwelling urethral catheter, initial encounter; N39.0 - Urinary tract infection , site not specified (2) Severe sepsis ICD Codes: A41.9 - Sepsis, unspecified organism; R65.20 - Severe sepsis without septic shock SNOMED: 26313134 (3) NSTEMI (non-ST elevated myocardial infarction) ICD Codes: I21.4 - Non-ST elevation (NSTEMI) myocardial infarction SNOMED: 584389787 (4) Right lower lobe pneumonia ICD Codes: J18.1 - Lobar pneumonia, unspecified organism SNOMED: 210422335 Qualifiers: Qualified Codes: J18.1 - Lobar pneumonia, unspecified organism (5) Elevated lactic acid level ICD Codes: R79.89 - Other specified abnormal findings of blood chemistry SNOMED: 3741771 Status: stable, progressing Assessment/Plan off abx per id bipap as needed pain rx as needed resp rx gt feeds dvt/stress ulcer prophlaxis skin care dc planning. Subjective ROS Limited/Unobtainable: No Constitutional: Reports: malaise, weakness HEENT: Reports: no symptoms Cardiovascular: Reports: no symptoms Respiratory: Reports: shortness of breath Gastrointestinal/Abdominal: Reports: no symptoms Genitourinary: Reports: no symptoms Neurologic/Psychiatric: Reports: pre-existing deficit Endocrine: Reports: no symptoms Hematologic/Lymphatic: Reports: anemia Allergies: Coded Allergies: No Known Allergies (Unverified , 06/17/18) All Systems: reviewed and negative except above Subjective no events. s/p removal of retained PD catheter. tolerated surgery well. currently resting on bipap. labs reviewed Objective Last 24 Hour Vital Signs Date Time Temp Pulse Resp B/P (MAP) Pulse Ox O2 Delivery O2 Flow Rate FiO2 09/02/18 05:25 67 18 97 Full Face 35 09/02/18 04:00 98.2 73 26 141/70 (93) 96 98.2 09/02/18 04:00 72 09/02/18 03:35 66 25 97 Full Face 35 09/02/18 01:33 68 23 96 Full Face 35 09/02/18 00:00 98.0 72 23 130/70 (90) 96 98.0 09/02/18 00:00 70 09/01/18 23:20 73 24 98 Full Face 35 09/01/18 21:00 Nasal Cannula 2.0 09/01/18 20:11 98 Nasal Cannula 2.0 28 09/01/18 20:11 Nasal Cannula 2.0 28 09/01/18 20:00 97.3 75 24 105/60 (75) 100 97.3 09/01/18 20:00 75 09/01/18 16:26 97.8 76 21 131/76 100 Nasal Cannula 3 97.8 09/01/18 16:15 74 15 130/75 100 Nasal Cannula 3 09/01/18 16:00 80 13 134/67 100 Nasal Cannula 3 09/01/18 15:50 73 17 126/64 100 Simple Mask 6 09/01/18 15:37 75 23 137/70 100 Simple Mask 6 09/01/18 15:32 76 19 135/71 100 Simple Mask 6 09/01/18 15:27 97.0 74 16 130/74 100 Simple Mask 6 97.0 09/01/18 15:27 206.6 70 16 100 09/01/18 12:45 88 09/01/18 12:00 88 09/01/18 12:00 97.3 91 20 141/80 (100) 96 97.3 09/01/18 09:00 Nasal Cannula 2.0 09/01/18 08:00 98.3 93 19 168/92 (117) 96 98.3 09/01/18 08:00 94 Intake and Output 09/01/18 09/02/18 19:00 07:00 Intake Total 1300 ml Output Total 403 ml 150 ml Balance 897 ml -150 ml IV Total 1300 ml Output Urine Total 400 ml 150 ml Estimated Blood Loss 3 ml Laboratory Tests 09/02/18 05:25: White Blood Count 7.1, Red Blood Count 3.42L, Hemoglobin 10.3L, Hematocrit 31.9L , Mean Corpuscular Volume 93, Mean Corpuscular Hemoglobin 30.2, Mean Corpuscular Hemoglobin Concent 32.3, Red Cell Distribution Width 15.8H, Platelet Count 439, Mean Platelet Volume 5.2L, Neutrophils (%) (Auto) , Lymphocytes (%) (Auto) , Monocytes (%) (Auto) , Eosinophils (%) (Auto) , Basophils (%) (Auto) , Neutrophils % (Manual) [Pending], Lymphocytes % (Manual) [Pending], Platelet Estimate [Pending], Platelet Morphology [Pending], Sodium Level 138, Potassium Level 4.2, Chloride Level 103, Carbon Dioxide Level 29, Anion Gap 6, Blood Urea Nitrogen 11, Creatinine 0.7, Estimat Glomerular Filtration Rate , Glucose Level 166H, Calcium Level 8.9, Magnesium Level 1.8, Total Bilirubin 0.1L, Aspartate Amino Transf (AST/SGOT) 16, Alanine Aminotransferase (ALT/SGPT) 9L, Alkaline Phosphatase 78, Total Protein 7.4, Albumin 1.7L, Globulin 5.7, Albumin/Globulin Ratio 0.3L Height (Feet): 5 Height (Inches): 5.00 Weight (Pounds): 125 Objective General Appearance: WD/WN, on bipap. opens eyes Neck: supple Cardiovascular: normal rate, regular rhythm Respiratory/Chest: chest wall non-tender, lungs with farhat rhonchi Abdomen: normal bowel sounds, non tender, soft, no organomegaly Neurologic: unresponsive, aphasia Michael Zuniga MD Sep 02, 2018 07:15
[2018-09-02 08:13] VITALS: BP 167/77
[2018-09-02] MEDS: Aspirin Baby 81mg GT SCH (08:51)
[2018-09-02] MEDS: Heparin 5000 units/ml inj SUBQ SCH ×2 (08:52→20:32)
--- NOTE | 2018-09-02 08:53 | Pulmonology Progress Note ---
Assessment/Plan Assessment/Plan IMPRESSION: 1. Respiratory failure, resolved 2. Sepsis with shock. improved 3. Dysphagia. 4. G-tube. 5. CVA. 6. Altered mental status. 7. Aspiration pneumonia 8. Severe protein-calorie malnutrition. 9. Diabetes. PLAN respiratory care as is aspiration precautions as is antibiotics off and stable imaging noted; repeat for change and clearing close follow up for change DVT prophylaxis primary MD note reviewed impression, plan, and exam edited and reviewed in detail care discussed with RN Subjective ROS Limited/Unobtainable: Yes Allergies: Coded Allergies: No Known Allergies (Unverified , 06/17/18) Subjective reviewed care off BIPAP and remains stable confused off antibiotics Objective Last 24 Hour Vital Signs Date Time Temp Pulse Resp B/P (MAP) Pulse Ox O2 Delivery O2 Flow Rate FiO2 09/02/18 08:13 98.6 80 20 167/77 (107) 96 98.6 09/02/18 07:20 100 Nasal Cannula 2.0 28 09/02/18 07:20 Nasal Cannula 2.0 28 09/02/18 07:20 76 20 100 Full Face 35 09/02/18 05:25 67 18 97 Full Face 35 09/02/18 04:00 98.2 73 26 141/70 (93) 96 98.2 09/02/18 04:00 72 09/02/18 03:35 66 25 97 Full Face 35 09/02/18 01:33 68 23 96 Full Face 35 09/02/18 00:00 98.0 72 23 130/70 (90) 96 98.0 09/02/18 00:00 70 09/01/18 23:20 73 24 98 Full Face 35 09/01/18 21:00 Nasal Cannula 2.0 09/01/18 20:11 98 Nasal Cannula 2.0 28 09/01/18 20:11 Nasal Cannula 2.0 28 09/01/18 20:00 97.3 75 24 105/60 (75) 100 97.3 09/01/18 20:00 75 09/01/18 16:26 97.8 76 21 131/76 100 Nasal Cannula 3 97.8 09/01/18 16:15 74 15 130/75 100 Nasal Cannula 3 09/01/18 16:00 80 13 134/67 100 Nasal Cannula 3 09/01/18 15:50 73 17 126/64 100 Simple Mask 6 09/01/18 15:37 75 23 137/70 100 Simple Mask 6 09/01/18 15:32 76 19 135/71 100 Simple Mask 6 09/01/18 15:27 97.0 74 16 130/74 100 Simple Mask 6 97.0 09/01/18 15:27 206.6 70 16 100 09/01/18 12:45 88 09/01/18 12:00 88 09/01/18 12:00 97.3 91 20 141/80 (100) 96 97.3 09/01/18 09:00 Nasal Cannula 2.0 Intake and Output 09/01/18 09/02/18 19:00 07:00 Intake Total 1300 ml Output Total 403 ml 150 ml Balance 897 ml -150 ml IV Total 1300 ml Output Urine Total 400 ml 150 ml Estimated Blood Loss 3 ml Objective GENERAL: Ill-appearing male, withdrawn, nonverbal. ALOC LUNGS: minimal rhonchi, moderate air entry, symmetric. CARDIAC: Normal S1, S2. RRR without murmurs, rubs, or gallops. ABDOMEN: Soft, nontender, nondistended. no distention EXTREMITIES: No cyanosis or clubbing. no edema SKIN: noted GENITOURINARY: The patient has suprapubic catheter. NEUROLOGIC: Neurologically overall same nonverbal at present reviewed and edited Laboratory Tests 09/02/18 05:25: White Blood Count 7.1, Red Blood Count 3.42L, Hemoglobin 10.3L, Hematocrit 31.9L , Mean Corpuscular Volume 93, Mean Corpuscular Hemoglobin 30.2, Mean Corpuscular Hemoglobin Concent 32.3, Red Cell Distribution Width 15.8H, Platelet Count 439, Mean Platelet Volume 5.2L, Neutrophils (%) (Auto) , Lymphocytes (%) (Auto) , Monocytes (%) (Auto) , Eosinophils (%) (Auto) , Basophils (%) (Auto) , Neutrophils % (Manual) [Pending], Lymphocytes % (Manual) [Pending], Platelet Estimate [Pending], Platelet Morphology [Pending], Sodium Level 138, Potassium Level 4.2, Chloride Level 103, Carbon Dioxide Level 29, Anion Gap 6, Blood Urea Nitrogen 11, Creatinine 0.7, Estimat Glomerular Filtration Rate , Glucose Level 166H, Calcium Level 8.9, Magnesium Level 1.8, Total Bilirubin 0.1L, Aspartate Amino Transf (AST/SGOT) 16, Alanine Aminotransferase (ALT/SGPT) 9L, Alkaline Phosphatase 78, Total Protein 7.4, Albumin 1.7L, Globulin 5.7, Albumin/Globulin Ratio 0.3L Current Medications Medications (Trade) Dose Ordered Sig/Benjamin Route PRN Reason Start Time Stop Time Status Last Admin Dose Admin Acetaminophen (Tylenol) 650 mg Q4H PRN ORAL Mild Pain/Temp > 100.5 08/28/18 09:00 09/27/18 08:59 08/28/18 10:16 Acetaminophen/ Hydrocodone Bitart ([place] 5/325) 1 tab Q6H PRN ORAL For Pain 08/29/18 23:30 09/05/18 23:29 Aspirin (ASA) 81 mg DAILY GT 08/23/18 09:00 09/22/18 08:59 08/30/18 08:29 Dextrose (Dextrose 50%) 25 ml Q30M PRN IV Hypoglycemia 08/21/18 20:00 09/20/18 19:59 Dextrose (Dextrose 50%) 50 ml Q30M PRN IV Hypoglycemia 08/21/18 20:00 09/20/18 19:59 Heparin Sodium (Porcine) (Heparin 5000 units/ml) 5,000 units EVERY 12 HOURS SUBQ 08/21/18 21:00 09/20/18 20:59 09/01/18 21:27 Insulin Aspart (NovoLOG) EVERY 6 HOURS SUBQ 08/23/18 12:00 09/22/18 11:59 09/02/18 05:45 Lansoprazole (Prevacid) 30 mg DAILY GT 08/25/18 09:00 09/24/18 08:59 09/01/18 09:22 Levothyroxine Sodium (Synthroid) 125 mcg DAILY@0630 ORAL 08/24/18 06:30 09/23/18 06:29 09/02/18 05:48 Morphine Sulfate (Morphine Sulfate) 1 mg Q4H PRN IVP Moderate Pain(4-6) 08/29/18 20:54 09/05/18 20:53 Sodium 1,000 ml @ 75 mls/hr [id number] IV 09/02/18 02:45 10/02/18 02:44 09/02/18 02:45 James Langston MD Sep 02, 2018 08:53
--- NOTE | 2018-09-02 09:35 | Urology Progress Note ---
Assessment/Plan Assessment/Plan 1. Urinary retention with chronic suprapubic tube. 2. Benign prostatic hypertrophy history. 3. Neurogenic bladder. 4. Urinary tract infection and colonization. 5. Hematuria. 6. Proteinuria. keep SP tube, last exchanged 08/23 hand irrigate PRN cont with abx as ordered cysto later consider recheck urine cx at some point d/w Dr. Hayes Subjective Allergies: Coded Allergies: No Known Allergies (Unverified , 06/17/18) Subjective all noted, peritoneal cath removed 09/01 Objective Last 24 Hour Vital Signs Date Time Temp Pulse Resp B/P (MAP) Pulse Ox O2 Delivery O2 Flow Rate FiO2 09/02/18 08:13 98.6 80 20 167/77 (107) 96 98.6 09/02/18 07:20 100 Nasal Cannula 2.0 28 09/02/18 07:20 Nasal Cannula 2.0 28 09/02/18 07:20 76 20 100 Full Face 35 09/02/18 05:25 67 18 97 Full Face 35 09/02/18 04:00 98.2 73 26 141/70 (93) 96 98.2 09/02/18 04:00 72 09/02/18 03:35 66 25 97 Full Face 35 09/02/18 01:33 68 23 96 Full Face 35 09/02/18 00:00 98.0 72 23 130/70 (90) 96 98.0 09/02/18 00:00 70 09/01/18 23:20 73 24 98 Full Face 35 09/01/18 21:00 Nasal Cannula 2.0 09/01/18 20:11 98 Nasal Cannula 2.0 28 09/01/18 20:11 Nasal Cannula 2.0 28 09/01/18 20:00 97.3 75 24 105/60 (75) 100 97.3 09/01/18 20:00 75 09/01/18 16:26 97.8 76 21 131/76 100 Nasal Cannula 3 97.8 09/01/18 16:15 74 15 130/75 100 Nasal Cannula 3 09/01/18 16:00 80 13 134/67 100 Nasal Cannula 3 09/01/18 15:50 73 17 126/64 100 Simple Mask 6 09/01/18 15:37 75 23 137/70 100 Simple Mask 6 09/01/18 15:32 76 19 135/71 100 Simple Mask 6 09/01/18 15:27 97.0 74 16 130/74 100 Simple Mask 6 97.0 09/01/18 15:27 206.6 70 16 100 09/01/18 12:45 88 09/01/18 12:00 88 09/01/18 12:00 97.3 91 20 141/80 (100) 96 97.3 Intake and Output 09/01/18 09/02/18 19:00 07:00 Intake Total 1300 ml Output Total 403 ml 150 ml Balance 897 ml -150 ml IV Total 1300 ml Output Urine Total 400 ml 150 ml Estimated Blood Loss 3 ml Microbiology Date/Time Source Procedure Growth Status 08/21/18 15:15 Blood Blood Culture - Final NO GROWTH AFTER 5 DAYS Complete 08/23/18 18:45 Wound Gram Stain - Final Complete 08/23/18 18:45 Wound Culture - Final Staphylococcus Aureus - Mrsa Complete 08/23/18 11:30 Sputum Gram Stain - Final Complete 08/23/18 11:30 Sputum Sputum Culture - Final NORMAL UPPER RESPIRATORY THEO PRESENT Complete 08/25/18 17:00 Stool Clostridium difficile Toxin Assay - Final Complete 08/21/18 15:15 Urine,Clean Catch Urine Culture - Final Providencia Stuartii Complete 08/21/18 17:07 Rectum - Final NO CARBAPENEM-RESISTANT ENTEROBACTERI... Complete Current Medications Medications (Trade) Dose Ordered Sig/Benjamin Route PRN Reason Start Time Stop Time Status Last Admin Dose Admin Acetaminophen (Tylenol) 650 mg Q4H PRN ORAL Mild Pain/Temp > 100.5 08/28/18 09:00 09/27/18 08:59 08/28/18 10:16 Acetaminophen/ Hydrocodone Bitart ([place] 5/325) 1 tab Q6H PRN ORAL For Pain 08/29/18 23:30 09/05/18 23:29 Aspirin (ASA) 81 mg DAILY GT 08/23/18 09:00 09/22/18 08:59 09/02/18 08:51 Dextrose (Dextrose 50%) 25 ml Q30M PRN IV Hypoglycemia 08/21/18 20:00 09/20/18 19:59 Dextrose (Dextrose 50%) 50 ml Q30M PRN IV Hypoglycemia 08/21/18 20:00 09/20/18 19:59 Heparin Sodium (Porcine) (Heparin 5000 units/ml) 5,000 units EVERY 12 HOURS SUBQ 08/21/18 21:00 09/20/18 20:59 09/02/18 08:52 Insulin Aspart (NovoLOG) EVERY 6 HOURS SUBQ 08/23/18 12:00 09/22/18 11:59 09/02/18 05:45 Lansoprazole (Prevacid) 30 mg DAILY GT 08/25/18 09:00 09/24/18 08:59 09/02/18 08:51 Levothyroxine Sodium (Synthroid) 125 mcg DAILY@0630 ORAL 08/24/18 06:30 09/23/18 06:29 09/02/18 05:48 Morphine Sulfate (Morphine Sulfate) 1 mg Q4H PRN IVP Moderate Pain(4-6) 08/29/18 20:54 09/05/18 20:53 Sodium 1,000 ml @ 75 mls/hr [id number] IV 09/02/18 02:45 10/02/18 02:44 09/02/18 02:45 Laboratory Tests 09/02/18 05:25: White Blood Count 7.1, Red Blood Count 3.42L, Hemoglobin 10.3L, Hematocrit 31.9L , Mean Corpuscular Volume 93, Mean Corpuscular Hemoglobin 30.2, Mean Corpuscular Hemoglobin Concent 32.3, Red Cell Distribution Width 15.8H, Platelet Count 439, Mean Platelet Volume 5.2L, Neutrophils (%) (Auto) , Lymphocytes (%) (Auto) , Monocytes (%) (Auto) , Eosinophils (%) (Auto) , Basophils (%) (Auto) , Neutrophils % (Manual) [Pending], Lymphocytes % (Manual) [Pending], Platelet Estimate [Pending], Platelet Morphology [Pending], Sodium Level 138, Potassium Level 4.2, Chloride Level 103, Carbon Dioxide Level 29, Anion Gap 6, Blood Urea Nitrogen 11, Creatinine 0.7, Estimat Glomerular Filtration Rate , Glucose Level 166H, Calcium Level 8.9, Magnesium Level 1.8, Total Bilirubin 0.1L, Aspartate Amino Transf (AST/SGOT) 16, Alanine Aminotransferase (ALT/SGPT) 9L, Alkaline Phosphatase 78, Total Protein 7.4, Albumin 1.7L, Globulin 5.7, Albumin/Globulin Ratio 0.3L Height (Feet): 5 Height (Inches): 5.00 Weight (Pounds): 125 Objective exam stable, urine clearing ALEJANDRO COLLIER Sep 02, 2018 09:35
--- NOTE | 2018-09-02 11:09 | Infectious Diseases Prog Note ---
Assessment/Plan Assessment/Plan antibiotics : none A 1. peritoneal abscess s/p evacuation with gram negative rods 2. s/p removal of broken peritoneal catheter 3. leucocytosis resolved 4. diabetes mellitus 5. hypertension 6. dementia p 1. start zosyn 2. will follow up cultures Subjective ROS Limited/Unobtainable: Yes Allergies: Coded Allergies: No Known Allergies (Unverified , 06/17/18) Objective Vital Signs Last 24 Hour Vital Signs Date Time Temp Pulse Resp B/P (MAP) Pulse Ox O2 Delivery O2 Flow Rate FiO2 09/02/18 09:00 Nasal Cannula 2.0 09/02/18 08:13 98.6 80 20 167/77 (107) 96 98.6 09/02/18 07:20 100 Nasal Cannula 2.0 28 09/02/18 07:20 Nasal Cannula 2.0 28 09/02/18 07:20 76 20 100 Full Face 35 09/02/18 05:25 67 18 97 Full Face 35 09/02/18 04:00 98.2 73 26 141/70 (93) 96 98.2 09/02/18 04:00 72 09/02/18 03:35 66 25 97 Full Face 35 09/02/18 01:33 68 23 96 Full Face 35 09/02/18 00:00 98.0 72 23 130/70 (90) 96 98.0 09/02/18 00:00 70 09/01/18 23:20 73 24 98 Full Face 35 09/01/18 21:00 Nasal Cannula 2.0 09/01/18 20:11 98 Nasal Cannula 2.0 28 09/01/18 20:11 Nasal Cannula 2.0 28 09/01/18 20:00 97.3 75 24 105/60 (75) 100 97.3 09/01/18 20:00 75 09/01/18 16:26 97.8 76 21 131/76 100 Nasal Cannula 3 97.8 09/01/18 16:15 74 15 130/75 100 Nasal Cannula 3 09/01/18 16:00 80 13 134/67 100 Nasal Cannula 3 09/01/18 15:50 73 17 126/64 100 Simple Mask 6 09/01/18 15:37 75 23 137/70 100 Simple Mask 6 09/01/18 15:32 76 19 135/71 100 Simple Mask 6 09/01/18 15:27 97.0 74 16 130/74 100 Simple Mask 6 97.0 09/01/18 15:27 206.6 70 16 100 09/01/18 12:45 88 09/01/18 12:00 88 09/01/18 12:00 97.3 91 20 141/80 (100) 96 97.3 Height (Feet): 5 Height (Inches): 5.00 Weight (Pounds): 125 Respiratory/Chest: lungs clear Cardiovascular: normal rate, regular rhythm, no gallop/murmur Abdomen: soft, non tender, other - GT Extremities: no edema Microbiology Date/Time Source Procedure Growth Status 09/01/18 15:56 Abdominal Abscess Gram Stain Pending Resulted 09/01/18 15:56 Aerobic Culture - Preliminary Gram Negative Bacillus 1 Resulted 09/01/18 15:56 Abdominal Abscess Anaerobic Culture - Preliminary Resulted Laboratory Tests Test 09/02/18 05:25 White Blood Count 7.1 K/UL (4.8-10.8) Red Blood Count 3.42 M/UL (4.70-6.10) L Hemoglobin 10.3 G/DL (14.2-18.0) L Hematocrit 31.9 % (42.0-52.0) L Mean Corpuscular Volume 93 FL (80-99) Mean Corpuscular Hemoglobin 30.2 PG (27.0-31.0) Mean Corpuscular Hemoglobin Concent 32.3 G/DL (32.0-36.0) Red Cell Distribution Width 15.8 % (11.6-14.8) H Platelet Count 439 K/UL (150-450) Mean Platelet Volume 5.2 FL (6.5-10.1) L Neutrophils (%) (Auto) % (45.0-75.0) Lymphocytes (%) (Auto) % (20.0-45.0) Monocytes (%) (Auto) % (1.0-10.0) Eosinophils (%) (Auto) % (0.0-3.0) Basophils (%) (Auto) % (0.0-2.0) Differential Total Cells Counted 100 Neutrophils % (Manual) 87 % (45-75) H Lymphocytes % (Manual) 5 % (20-45) L Monocytes % (Manual) 4 % (1-10) Eosinophils % (Manual) 4 % (0-3) H Basophils % (Manual) 0 % (0-2) Band Neutrophils 0 % (0-8) Platelet Estimate Adequate Platelet Morphology Normal Hypochromasia 1+ Anisocytosis 1+ Sodium Level 138 MMOL/L (136-145) Potassium Level 4.2 MMOL/L (3.5-5.1) Chloride Level 103 MMOL/L (98-107) Carbon Dioxide Level 29 MMOL/L (21-32) Anion Gap 6 mmol/L (5-15) Blood Urea Nitrogen 11 mg/dL (7-18) Creatinine 0.7 MG/DL (0.55-1.30) Estimat Glomerular Filtration Rate mL/min (>60) Glucose Level 166 MG/DL (74-106) H Calcium Level 8.9 MG/DL (8.5-10.1) Magnesium Level 1.8 MG/DL (1.8-2.4) Total Bilirubin 0.1 MG/DL (0.2-1.0) L Aspartate Amino Transf (AST/SGOT) 16 U/L (15-37) Alanine Aminotransferase (ALT/SGPT) 9 U/L (12-78) L Alkaline Phosphatase 78 U/L (46-116) Total Protein 7.4 G/DL (6.4-8.2) Albumin 1.7 G/DL (3.4-5.0) L Globulin 5.7 g/dL Albumin/Globulin Ratio 0.3 (1.0-2.7) L Current Medications Medications (Trade) Dose Ordered Sig/Benjamin Route PRN Reason Start Time Stop Time Status Last Admin Dose Admin Acetaminophen (Tylenol) 650 mg Q4H PRN ORAL Mild Pain/Temp > 100.5 08/28/18 09:00 09/27/18 08:59 08/28/18 10:16 Acetaminophen/ Hydrocodone Bitart ([place] 5/325) 1 tab Q6H PRN ORAL For Pain 08/29/18 23:30 09/05/18 23:29 Aspirin (ASA) 81 mg DAILY GT 08/23/18 09:00 09/22/18 08:59 09/02/18 08:51 Dextrose (Dextrose 50%) 25 ml Q30M PRN IV Hypoglycemia 08/21/18 20:00 09/20/18 19:59 Dextrose (Dextrose 50%) 50 ml Q30M PRN IV Hypoglycemia 08/21/18 20:00 09/20/18 19:59 Heparin Sodium (Porcine) (Heparin 5000 units/ml) 5,000 units EVERY 12 HOURS SUBQ 08/21/18 21:00 09/20/18 20:59 09/02/18 08:52 Insulin Aspart (NovoLOG) EVERY 6 HOURS SUBQ 08/23/18 12:00 09/22/18 11:59 09/02/18 05:45 Lansoprazole (Prevacid) 30 mg DAILY GT 08/25/18 09:00 09/24/18 08:59 09/02/18 08:51 Levothyroxine Sodium (Synthroid) 125 mcg DAILY@0630 ORAL 08/24/18 06:30 09/23/18 06:29 09/02/18 05:48 Morphine Sulfate (Morphine Sulfate) 1 mg Q4H PRN IVP Moderate Pain(4-6) 08/29/18 20:54 09/05/18 20:53 Sodium 1,000 ml @ 75 mls/hr [id number] IV 09/02/18 02:45 10/02/18 02:44 09/02/18 02:45 Barbra Oshea MD Sep 02, 2018 11:09
--- NOTE | 2018-09-02 11:46 | 48 Hour Post Anesthesia Eval ---
Post Anesthesia Evaluation Procedure: Remove Tunneled Intraperitoneal Catheter Date of Evaluation: Sep 02, 2018 Time of Evaluation: 06:45 Blood Pressure Systolic: 141 0: 70 Pulse Rate: 67 Respiratory Rate: 18 Temperature (Fahrenheit): 98.2 O2 Sat by Pulse Oximetry: 97 Airway: patent Nausea: No Vomiting: No Pain Intensity: 0 Hydration Status: adequate Cardiopulmonary Status: at baseline Mental Status/LOC: patient returned to baseline Post-Anesthesia Complications: 0 Follow-up care needed: N/A - further care as per primary team Felisa Metzger MD Sep 02, 2018 11:46
[2018-09-02 12:34] VITALS: BP 129/60
[2018-09-02] MEDS: Piperacillin/Tazobactam 3.375 GM in D5W 110 ML IVPB SCH ×2 (13:19→20:32)
--- NOTE | 2018-09-02 14:24 | General Progress Note ---
Progress Note Progress Note Surgery: doing well post op. urine output low but asymptomatic. wound c/d/i. luis in place. serous drainage afebrile, HD stable, labs okay s/p removal of malfunctioning broken peritoneal catheter and drainage of abscess change dressings daily and as needed monitor wound will follow with recs. thank you Ezequiel Hayes Sep 02, 2018 14:24
[2018-09-02] MEDS ORDERED: Sterile Water For Inj 1000ml IV ONE (15:37)
[2018-09-02 16:00] VITALS: BP 152/71
[2018-09-02 20:00] VITALS: BP 151/78
[2018-09-03] VITALS: BP 149/86
[2018-09-03] MEDS: NovoLOG Insulin Flexpen SUBQ SCH ×4 (00:14→17:26)
[2018-09-03] MEDS ORDERED: 1/2NS w/KCl 20mEq 1000ml 1,000 ML IV SCH (02:45)
--- NOTE | 2018-09-03 03:15 | Progress Note ---
DATE: 09/02/2018 CARDIOLOGY PROGRESS NOTE SUBJECTIVE: Postop day #2. No apparent distress. Status post removal of retained peritoneal dialysis catheter. OBJECTIVE: VITAL SIGNS: Blood pressure 141/70, pulse 73, respiratory rate 26. LUNGS: Bilateral breath sounds. Few rhonchi. HEART: Regular rhythm and rate. Normal S1, S2. ABDOMEN: Soft. Surgical site dry. EXTREMITIES: No edema. LABORATORY DATA: Reviewed. IMPRESSION: 1. Aspiration pneumonia. 2. Sepsis. 3. Recovered shock. 4. Cellulitis, right second toe. 5. Status post removal of peritoneal dialysis catheter. 6. Anemia of chronic disease. 7. Fecucjut-oe-ranjdx protein-calorie malnutrition. 8. Acute myocardial infarction. 9. Acute on chronic diastolic congestive heart failure. 10. Hypertensive heart disease. PLAN: 1. Taper off IV fluids. 2. Encourage oral intake. 3. Antibiotics per Infectious Disease chain sales consultant. 4. DVT prophylaxis. 5. Respiratory hygiene. 6. Discharge planning. Bryon Ramirez M.D. DR: Josué JOB#: [id number] CC:
[2018-09-03 04:00] VITALS: BP 144/76
[2018-09-03] MEDS: Levothyroxine 125mcg tab ORAL SCH (05:49)
[2018-09-03] MEDS: Piperacillin/Tazobactam 3.375 GM in D5W 110 ML IVPB SCH (05:56)
[2018-09-03 07:13] LABS: BASOPHILS % (AUTO) 0.8 % (0.0-2.0); EOSINOPHILS % (AUTO) 1.2 % (0.0-3.0); HEMATOCRIT 31.4 % (42.0-52.0); HEMOGLOBIN 10.3 G/DL (14.2-18.0); LYMPHOCYTES % (AUTO) 12.2 % (20.0-45.0); MEAN CORPUSCULAR VOLUME 93 FL (80-99); MONOCYTES % (AUTO) 6.7 % (1.0-10.0); PLATELET COUNT 378 K/UL (150-450); RED BLOOD COUNT 3.37 M/UL (4.70-6.10); RED CELL DISTRIBUTION WIDTH 15.6 % (11.6-14.8); WHITE BLOOD COUNT 7.2 K/UL (4.8-10.8)
[2018-09-03 08:00] VITALS: BP 136/75
[2018-09-03 08:10] LABS: ALANINE AMINOTRANSFERASE 13 U/L (12-78); ALBUMIN 1.7 G/DL (3.4-5.0); ALBUMIN/GLOBULIN RATIO 0.3 (1.0-2.7); ALKALINE PHOSPHATASE 79 U/L (46-116); ANION GAP 6 mmol/L (5-15); ASPARTATE AMINO TRANSFERASE 24 U/L (15-37); BILIRUBIN,TOTAL 0.2 MG/DL (0.2-1.0); BLOOD UREA NITROGEN 12 mg/dL (7-18); CALCIUM 8.4 MG/DL (8.5-10.1); CARBON DIOXIDE 29 MMOL/L (21-32); CHLORIDE 103 MMOL/L (98-107); CREATININE 0.8 MG/DL (0.55-1.30); POTASSIUM 4.9 MMOL/L (3.5-5.1); SODIUM 138 MMOL/L (136-145)
--- NOTE | 2018-09-03 08:58 | General Progress Note ---
Assessment/Plan Problem List: (1) UTI (urinary tract infection) ICD Codes: N39.0 - Urinary tract infection, site not specified SNOMED: 95178260 Qualifiers: Qualified Codes: T83.511A - Infection and inflammatory reaction due to indwelling urethral catheter, initial encounter; N39.0 - Urinary tract infection , site not specified (2) Severe sepsis ICD Codes: A41.9 - Sepsis, unspecified organism; R65.20 - Severe sepsis without septic shock SNOMED: 38536917 (3) NSTEMI (non-ST elevated myocardial infarction) ICD Codes: I21.4 - Non-ST elevation (NSTEMI) myocardial infarction SNOMED: 119719272 (4) Right lower lobe pneumonia ICD Codes: J18.1 - Lobar pneumonia, unspecified organism SNOMED: 078906982 Qualifiers: Qualified Codes: J18.1 - Lobar pneumonia, unspecified organism (5) Elevated lactic acid level ICD Codes: R79.89 - Other specified abnormal findings of blood chemistry SNOMED: 4131745 Status: stable, progressing Assessment/Plan iv abx per id dc ivf bipap as needed pain rx as needed resp rx gt feeds dvt/stress ulcer prophlaxis skin care dc planning. Subjective ROS Limited/Unobtainable: No Constitutional: Reports: malaise, weakness HEENT: Reports: no symptoms Cardiovascular: Reports: no symptoms Respiratory: Reports: no symptoms Gastrointestinal/Abdominal: Reports: difficulty swallowing Genitourinary: Reports: no symptoms Neurologic/Psychiatric: Reports: no symptoms Endocrine: Reports: no symptoms Hematologic/Lymphatic: Reports: no symptoms Allergies: Coded Allergies: No Known Allergies (Unverified , 06/17/18) All Systems: reviewed and negative except above Subjective no events. no new complaints. no fevers. tolerating feeds Objective Last 24 Hour Vital Signs Date Time Temp Pulse Resp B/P (MAP) Pulse Ox O2 Delivery O2 Flow Rate FiO2 09/03/18 08:00 97.0 81 19 136/75 (95) 95 97.0 09/03/18 05:17 73 25 99 Full Face 35 09/03/18 04:00 96.9 61 19 144/76 (98) 95 96.9 09/03/18 04:00 69 09/03/18 03:04 69 26 99 Full Face 35 09/03/18 00:27 71 25 98 Full Face 35 09/03/18 00:00 73 09/03/18 00:00 97.7 77 18 149/86 (107) 94 97.7 09/02/18 23:12 73 24 99 Full Face 35 09/02/18 21:00 Nasal Cannula 2.0 09/02/18 20:02 97 Nasal Cannula 2.0 28 09/02/18 20:02 Nasal Cannula 2.0 28 09/02/18 20:00 86 09/02/18 20:00 97.9 86 19 151/78 (102) 93 97.9 09/02/18 16:00 99.2 84 21 152/71 (98) 98 99.2 09/02/18 16:00 83 09/02/18 12:34 99.3 85 19 129/60 (83) 98 99.3 09/02/18 12:00 83 09/02/18 11:46 208.8 67 18 97 09/02/18 09:00 Nasal Cannula 2.0 Intake and Output 09/02/18 09/03/18 19:00 07:00 Intake Total 1260 ml 1075 ml Output Total 400 ml 650 ml Balance 860 ml 425 ml Intake Free Water 100 ml IV Total 900 ml 675 ml Tube Feeding 360 ml 300 ml Output Urine Total 400 ml 650 ml Laboratory Tests 09/03/18 06:40: White Blood Count 7.2, Red Blood Count 3.37L, Hemoglobin 10.3L, Hematocrit 31.4L , Mean Corpuscular Volume 93, Mean Corpuscular Hemoglobin 30.7, Mean Corpuscular Hemoglobin Concent 32.9, Red Cell Distribution Width 15.6H, Platelet Count 378, Mean Platelet Volume 5.1L, Neutrophils (%) (Auto) 79.0H, Lymphocytes (%) (Auto) 12.2L, Monocytes (%) (Auto) 6.7, Eosinophils (%) (Auto) 1.2, Basophils (%) (Auto) 0.8, Sodium Level 138, Potassium Level 4.9, Chloride Level 103, Carbon Dioxide Level 29, Anion Gap 6, Blood Urea Nitrogen 12, Creatinine 0.8, Estimat Glomerular Filtration Rate , Glucose Level 142H, Calcium Level 8.4L, Total Bilirubin 0.2, Aspartate Amino Transf (AST/SGOT) 24, Alanine Aminotransferase (ALT/SGPT) 13, Alkaline Phosphatase 79, Total Protein 6.6, Albumin 1.7L, Globulin 4.9, Albumin/Globulin Ratio 0.3L Height (Feet): 5 Height (Inches): 5.00 Weight (Pounds): 125 Objective General Appearance: WD/WN, on bipap. opens eyes Neck: supple Cardiovascular: normal rate, regular rhythm Respiratory/Chest: chest wall non-tender, lungs with farhat rhonchi Abdomen: normal bowel sounds, non tender, soft, no organomegaly Neurologic: unresponsive, aphasia Michael Zuniga MD Sep 03, 2018 08:58
--- NOTE | 2018-09-03 09:11 | Pulmonology Progress Note ---
Assessment/Plan Assessment/Plan IMPRESSION: 1. Respiratory failure, resolved 2. Sepsis with shock. improved 3. Dysphagia. 4. G-tube. 5. CVA. 6. Altered mental status. 7. Aspiration pneumonia 8. Severe protein-calorie malnutrition. 9. Diabetes. PLAN respiratory care without change aspiration precautions as is antibiotics off imaging noted; repeat noted close follow up for change DVT prophylaxis dc planning impression, plan, and exam edited and reviewed in detail care discussed with RN Subjective ROS Limited/Unobtainable: Yes Allergies: Coded Allergies: No Known Allergies (Unverified , 06/17/18) Subjective reviewed care care noted confused off antibiotics Objective Last 24 Hour Vital Signs Date Time Temp Pulse Resp B/P (MAP) Pulse Ox O2 Delivery O2 Flow Rate FiO2 09/03/18 08:00 97.0 81 19 136/75 (95) 95 97.0 09/03/18 05:17 73 25 99 Full Face 35 09/03/18 04:00 96.9 61 19 144/76 (98) 95 96.9 09/03/18 04:00 69 09/03/18 03:04 69 26 99 Full Face 35 09/03/18 00:27 71 25 98 Full Face 35 09/03/18 00:00 73 09/03/18 00:00 97.7 77 18 149/86 (107) 94 97.7 09/02/18 23:12 73 24 99 Full Face 35 09/02/18 21:00 Nasal Cannula 2.0 09/02/18 20:02 97 Nasal Cannula 2.0 28 09/02/18 20:02 Nasal Cannula 2.0 28 09/02/18 20:00 86 09/02/18 20:00 97.9 86 19 151/78 (102) 93 97.9 09/02/18 16:00 99.2 84 21 152/71 (98) 98 99.2 09/02/18 16:00 83 09/02/18 12:34 99.3 85 19 129/60 (83) 98 99.3 09/02/18 12:00 83 09/02/18 11:46 208.8 67 18 97 Intake and Output 09/02/18 09/03/18 19:00 07:00 Intake Total 1260 ml 1075 ml Output Total 400 ml 650 ml Balance 860 ml 425 ml Intake Free Water 100 ml IV Total 900 ml 675 ml Tube Feeding 360 ml 300 ml Output Urine Total 400 ml 650 ml Objective GENERAL: Ill-appearing male, withdrawn, nonverbal. ALOC LUNGS: rare rhonchi, moderate air entry, symmetric. CARDIAC: Normal S1, S2. RRR without murmurs, rubs, or gallops. ABDOMEN: Soft, nontender, nondistended. no distention EXTREMITIES: No cyanosis or clubbing. no edema SKIN: noted GENITOURINARY: suprapubic catheter. NEUROLOGIC: Neurologically overall same nonverbal at present reviewed and edited Microbiology Date/Time Source Procedure Growth Status 09/01/18 15:56 Abdominal Abscess Gram Stain - Final Resulted 09/01/18 15:56 Aerobic Culture - Preliminary Escherichia Coli - Esbl Gram Negative Bacillus 2 Resulted 09/01/18 15:56 Abdominal Abscess Anaerobic Culture - Preliminary Resulted Laboratory Tests 09/03/18 06:40: White Blood Count 7.2, Red Blood Count 3.37L, Hemoglobin 10.3L, Hematocrit 31.4L , Mean Corpuscular Volume 93, Mean Corpuscular Hemoglobin 30.7, Mean Corpuscular Hemoglobin Concent 32.9, Red Cell Distribution Width 15.6H, Platelet Count 378, Mean Platelet Volume 5.1L, Neutrophils (%) (Auto) 79.0H, Lymphocytes (%) (Auto) 12.2L, Monocytes (%) (Auto) 6.7, Eosinophils (%) (Auto) 1.2, Basophils (%) (Auto) 0.8, Sodium Level 138, Potassium Level 4.9, Chloride Level 103, Carbon Dioxide Level 29, Anion Gap 6, Blood Urea Nitrogen 12, Creatinine 0.8, Estimat Glomerular Filtration Rate , Glucose Level 142H, Calcium Level 8.4L, Total Bilirubin 0.2, Aspartate Amino Transf (AST/SGOT) 24, Alanine Aminotransferase (ALT/SGPT) 13, Alkaline Phosphatase 79, Total Protein 6.6, Albumin 1.7L, Globulin 4.9, Albumin/Globulin Ratio 0.3L Current Medications Medications (Trade) Dose Ordered Sig/Benjamin Route PRN Reason Start Time Stop Time Status Last Admin Dose Admin Acetaminophen (Tylenol) 650 mg Q4H PRN ORAL Mild Pain/Temp > 100.5 08/28/18 09:00 09/27/18 08:59 08/28/18 10:16 Acetaminophen/ Hydrocodone Bitart ([place] 5/325) 1 tab Q6H PRN ORAL For Pain 08/29/18 23:30 09/05/18 23:29 Aspirin (ASA) 81 mg DAILY GT 08/23/18 09:00 09/22/18 08:59 09/02/18 08:51 Dextrose (Dextrose 50%) 25 ml Q30M PRN IV Hypoglycemia 08/21/18 20:00 09/20/18 19:59 Dextrose (Dextrose 50%) 50 ml Q30M PRN IV Hypoglycemia 08/21/18 20:00 09/20/18 19:59 Heparin Sodium (Porcine) (Heparin 5000 units/ml) 5,000 units EVERY 12 HOURS SUBQ 08/21/18 21:00 09/20/18 20:59 09/02/18 20:32 Insulin Aspart (NovoLOG) EVERY 6 HOURS SUBQ 08/23/18 12:00 09/22/18 11:59 09/03/18 05:59 Lansoprazole (Prevacid) 30 mg DAILY GT 08/25/18 09:00 09/24/18 08:59 09/02/18 08:51 Levothyroxine Sodium (Synthroid) 125 mcg DAILY@0630 ORAL 08/24/18 06:30 09/23/18 06:29 09/03/18 05:49 Morphine Sulfate (Morphine Sulfate) 1 mg Q4H PRN IVP Moderate Pain(4-6) 08/29/18 20:54 09/05/18 20:53 Piperacillin Sod/ Tazobactam Sod 3.375 gm/Dextrose 110 ml @ 27.5 mls/hr EVERY 8 HOURS IVPB 09/02/18 14:00 09/07/18 13:59 09/03/18 05:56 James Langston MD Sep 03, 2018 09:11
[2018-09-03] MEDS: Aspirin Baby 81mg GT SCH (09:25)
[2018-09-03] MEDS: Heparin 5000 units/ml inj SUBQ SCH ×2 (09:26→20:03)
--- NOTE | 2018-09-03 09:34 | Urology Progress Note ---
Assessment/Plan Assessment/Plan 1. Urinary retention with chronic suprapubic tube. 2. Benign prostatic hypertrophy history. 3. Neurogenic bladder. 4. Urinary tract infection and colonization. 5. Hematuria. 6. Proteinuria. keep SP tube, last exchanged 08/23 hand irrigated and do PRN cont with abx as ordered cysto later consider recheck urine cx at some point Subjective Allergies: Coded Allergies: No Known Allergies (Unverified , 06/17/18) Subjective all noted, peritoneal cath removed 09/01 Objective Last 24 Hour Vital Signs Date Time Temp Pulse Resp B/P (MAP) Pulse Ox O2 Delivery O2 Flow Rate FiO2 09/03/18 08:42 98 Nasal Cannula 2.0 28 09/03/18 08:42 Nasal Cannula 2.0 28 09/03/18 08:00 97.0 81 19 136/75 (95) 95 97.0 09/03/18 05:17 73 25 99 Full Face 35 09/03/18 04:00 96.9 61 19 144/76 (98) 95 96.9 09/03/18 04:00 69 09/03/18 03:04 69 26 99 Full Face 35 09/03/18 00:27 71 25 98 Full Face 35 09/03/18 00:00 73 09/03/18 00:00 97.7 77 18 149/86 (107) 94 97.7 09/02/18 23:12 73 24 99 Full Face 35 09/02/18 21:00 Nasal Cannula 2.0 09/02/18 20:02 97 Nasal Cannula 2.0 28 09/02/18 20:02 Nasal Cannula 2.0 28 09/02/18 20:00 86 09/02/18 20:00 97.9 86 19 151/78 (102) 93 97.9 09/02/18 16:00 99.2 84 21 152/71 (98) 98 99.2 09/02/18 16:00 83 09/02/18 12:34 99.3 85 19 129/60 (83) 98 99.3 09/02/18 12:00 83 09/02/18 11:46 208.8 67 18 97 Intake and Output 09/02/18 09/03/18 19:00 07:00 Intake Total 1260 ml 1075 ml Output Total 400 ml 650 ml Balance 860 ml 425 ml Intake Free Water 100 ml IV Total 900 ml 675 ml Tube Feeding 360 ml 300 ml Output Urine Total 400 ml 650 ml Microbiology Date/Time Source Procedure Growth Status 08/21/18 15:15 Blood Blood Culture - Final NO GROWTH AFTER 5 DAYS Complete 08/23/18 18:45 Wound Gram Stain - Final Complete 08/23/18 18:45 Wound Culture - Final Staphylococcus Aureus - Mrsa Complete 08/23/18 11:30 Sputum Gram Stain - Final Complete 08/23/18 11:30 Sputum Sputum Culture - Final NORMAL UPPER RESPIRATORY THEO PRESENT Complete 08/25/18 17:00 Stool Clostridium difficile Toxin Assay - Final Complete 08/21/18 15:15 Urine,Clean Catch Urine Culture - Final Providencia Stuartii Complete 09/01/18 15:56 Abdominal Abscess Gram Stain - Final Resulted 09/01/18 15:56 Aerobic Culture - Preliminary Escherichia Coli - Esbl Gram Negative Bacillus 2 Resulted 09/01/18 15:56 Abdominal Abscess Anaerobic Culture - Preliminary Resulted Current Medications Medications (Trade) Dose Ordered Sig/Benjamin Route PRN Reason Start Time Stop Time Status Last Admin Dose Admin Acetaminophen (Tylenol) 650 mg Q4H PRN ORAL Mild Pain/Temp > 100.5 08/28/18 09:00 09/27/18 08:59 08/28/18 10:16 Acetaminophen/ Hydrocodone Bitart ([place] 5/325) 1 tab Q6H PRN ORAL For Pain 08/29/18 23:30 09/05/18 23:29 Aspirin (ASA) 81 mg DAILY GT 08/23/18 09:00 09/22/18 08:59 09/03/18 09:25 Dextrose (Dextrose 50%) 25 ml Q30M PRN IV Hypoglycemia 08/21/18 20:00 09/20/18 19:59 Dextrose (Dextrose 50%) 50 ml Q30M PRN IV Hypoglycemia 08/21/18 20:00 09/20/18 19:59 Heparin Sodium (Porcine) (Heparin 5000 units/ml) 5,000 units EVERY 12 HOURS SUBQ 08/21/18 21:00 09/20/18 20:59 09/03/18 09:26 Insulin Aspart (NovoLOG) EVERY 6 HOURS SUBQ 08/23/18 12:00 09/22/18 11:59 09/03/18 05:59 Lansoprazole (Prevacid) 30 mg DAILY GT 08/25/18 09:00 09/24/18 08:59 09/03/18 09:25 Levothyroxine Sodium (Synthroid) 125 mcg DAILY@0630 ORAL 08/24/18 06:30 09/23/18 06:29 09/03/18 05:49 Morphine Sulfate (Morphine Sulfate) 1 mg Q4H PRN IVP Moderate Pain(4-6) 08/29/18 20:54 09/05/18 20:53 Piperacillin Sod/ Tazobactam Sod 3.375 gm/Dextrose 110 ml @ 27.5 mls/hr EVERY 8 HOURS IVPB 09/02/18 14:00 09/07/18 13:59 09/03/18 05:56 Laboratory Tests 09/03/18 06:40: White Blood Count 7.2, Red Blood Count 3.37L, Hemoglobin 10.3L, Hematocrit 31.4L , Mean Corpuscular Volume 93, Mean Corpuscular Hemoglobin 30.7, Mean Corpuscular Hemoglobin Concent 32.9, Red Cell Distribution Width 15.6H, Platelet Count 378, Mean Platelet Volume 5.1L, Neutrophils (%) (Auto) 79.0H, Lymphocytes (%) (Auto) 12.2L, Monocytes (%) (Auto) 6.7, Eosinophils (%) (Auto) 1.2, Basophils (%) (Auto) 0.8, Sodium Level 138, Potassium Level 4.9, Chloride Level 103, Carbon Dioxide Level 29, Anion Gap 6, Blood Urea Nitrogen 12, Creatinine 0.8, Estimat Glomerular Filtration Rate , Glucose Level 142H, Calcium Level 8.4L, Total Bilirubin 0.2, Aspartate Amino Transf (AST/SGOT) 24, Alanine Aminotransferase (ALT/SGPT) 13, Alkaline Phosphatase 79, Total Protein 6.6, Albumin 1.7L, Globulin 4.9, Albumin/Globulin Ratio 0.3L Height (Feet): 5 Height (Inches): 5.00 Weight (Pounds): 125 Objective exam stable, urine clearing ALEJANDRO COLLIER Sep 03, 2018 09:34
[2018-09-03 12:00] VITALS: BP 136/68
[2018-09-03] MEDS: Ertapenem 1gm in NS 55ml IVPB SCH (12:09)
--- NOTE | 2018-09-03 13:25 | General Progress Note ---
Progress Note Progress Note Surgery: no acute events. wounds clean and luis in place. drainage improved and only serous minimal change dressings as scheduled and prn will plan to d/c luis when ready thank you Ezequiel Hayes Sep 03, 2018 13:25
[2018-09-03 16:00] VITALS: BP 135/63
[2018-09-03 20:00] VITALS: BP 116/56
--- NOTE | 2018-09-03 22:45 | Progress Note ---
DATE: 09/03/2018 CARDIOLOGY PROGRESS NOTE SUBJECTIVE: The patient has not had any new events since removal of his retained peritoneal dialysis catheter from the abdomen. He is tolerating feedings. No shortness of breath. OBJECTIVE: VITAL SIGNS: Blood pressure 136/75, pulse 81, respiratory rate 19, afebrile, and oxygen saturation remains adequate. LUNGS: Few rhonchi. CARDIAC: Regular rhythm and rate. Normal S1 and S2. ABDOMEN: Soft. G-tube intact. Suprapubic catheter site clean and dry. Wound site clean with drainage appearing serous. EXTREMITIES: No edema. LABORATORY DATA: Sodium 138, potassium 4.9, bicarbonate 29, BUN 12, and creatinine 0.8. Albumin 1.7. White count 7.2 and hemoglobin 10.3. IMPRESSION: Overall improved. PLAN: 1. Surgical clearance for discharge with following drain removal. 2. Antimicrobials and respiratory hygiene. 3. Off IV fluids. 4. Maintain anti-platelet therapy. 5. Monitor volume status and cardiorenal parameters. Bryon Ramirez M.D. DR: MARIEL JOB#: [id number] CC:
[2018-09-04] VITALS: BP 128/66
[2018-09-04] MEDS: NovoLOG Insulin Flexpen SUBQ SCH ×5 (00:45→23:42)
[2018-09-04] MEDS ORDERED: levETIRAcetam 1,000mg/NS100ml 100 ML IVPB ONE (03:30)
[2018-09-04 04:00] VITALS: BP 120/69
[2018-09-04] MEDS: Levothyroxine 125mcg tab ORAL SCH (05:55)
--- NOTE | 2018-09-04 07:45 | Pulmonology Progress Note ---
Assessment/Plan Assessment/Plan IMPRESSION: 1. Respiratory failure, resolved 2. Sepsis with shock. improved 3. Dysphagia. 4. G-tube. 5. CVA. 6. Altered mental status. 7. Aspiration pneumonia 8. Severe protein-calorie malnutrition. 9. Diabetes. PLAN respiratory care without change aspiration precautions as is antibiotics off imaging noted; repeat noted and will follow up for final clearing close follow up for change DVT prophylaxis dc planning impression, plan, and exam edited and reviewed in detail care discussed with RN Subjective Allergies: Coded Allergies: No Known Allergies (Unverified , 06/17/18) Subjective reviewed care care noted confused at baseline off antibiotics Objective Last 24 Hour Vital Signs Date Time Temp Pulse Resp B/P (MAP) Pulse Ox O2 Delivery O2 Flow Rate FiO2 09/04/18 07:39 98 Nasal Cannula 2.0 28 09/04/18 07:39 Nasal Cannula 2.0 28 09/04/18 04:00 103 09/04/18 04:00 98.0 87 23 120/69 (86) 95 98.0 09/04/18 00:58 62 19 98 Full Face 35 09/04/18 00:00 98.0 55 23 128/66 (86) 97 98.0 09/04/18 00:00 61 09/03/18 23:22 67 20 98 Full Face 35 09/03/18 21:00 Nasal Cannula 2.0 09/03/18 20:00 57 09/03/18 20:00 98.1 57 20 116/56 (76) 98 98.1 09/03/18 19:06 97 Nasal Cannula 2.0 28 09/03/18 19:06 Nasal Cannula 2.0 28 09/03/18 16:00 98.8 76 20 135/63 (87) 94 98.8 09/03/18 15:33 83 09/03/18 12:00 97.8 79 21 136/68 (90) 93 97.8 09/03/18 11:55 77 09/03/18 09:00 Nasal Cannula 2.0 09/03/18 08:42 98 Nasal Cannula 2.0 28 09/03/18 08:42 Nasal Cannula 2.0 28 09/03/18 08:00 97.0 81 19 136/75 (95) 95 97.0 09/03/18 07:55 80 Intake and Output 09/03/18 09/04/18 19:00 07:00 Output Total 500 ml 800 ml Balance -500 ml -800 ml Output Urine Total 500 ml 800 ml Objective GENERAL: Ill-appearing male, withdrawn, nonverbal. ALOC LUNGS: rare rhonchi, moderate air entry, symmetric. CARDIAC: Normal S1, S2. RRR without murmurs, rubs, or gallops. ABDOMEN: Soft, nontender, nondistended. no distention EXTREMITIES: No cyanosis or clubbing. no edema SKIN: noted GENITOURINARY: suprapubic catheter. NEUROLOGIC: Neurologically overall same nonverbal at present reviewed and edited Microbiology Date/Time Source Procedure Growth Status 09/01/18 15:56 Abdominal Abscess Gram Stain - Final Resulted 09/01/18 15:56 Aerobic Culture - Preliminary Escherichia Coli - Esbl Gram Negative Bacillus 2 Resulted 09/01/18 15:56 Abdominal Abscess Anaerobic Culture - Preliminary Resulted Current Medications Medications (Trade) Dose Ordered Sig/Benjamin Route PRN Reason Start Time Stop Time Status Last Admin Dose Admin Acetaminophen (Tylenol) 650 mg Q4H PRN ORAL Mild Pain/Temp > 100.5 08/28/18 09:00 09/27/18 08:59 08/28/18 10:16 Acetaminophen/ Hydrocodone Bitart ([place] 5/325) 1 tab Q6H PRN ORAL For Pain 08/29/18 23:30 09/05/18 23:29 Aspirin (ASA) 81 mg DAILY GT 08/23/18 09:00 09/22/18 08:59 09/03/18 09:25 Dextrose (Dextrose 50%) 25 ml Q30M PRN IV Hypoglycemia 08/21/18 20:00 09/20/18 19:59 Dextrose (Dextrose 50%) 50 ml Q30M PRN IV Hypoglycemia 08/21/18 20:00 09/20/18 19:59 Ertapenem 1 gm/ Sodium Chloride 55 ml @ 110 mls/hr Q24H IVPB 09/03/18 12:00 09/08/18 11:59 09/03/18 12:09 Heparin Sodium (Porcine) (Heparin 5000 units/ml) 5,000 units EVERY 12 HOURS SUBQ 08/21/18 21:00 09/20/18 20:59 09/03/18 20:03 Insulin Aspart (NovoLOG) EVERY 6 HOURS SUBQ 08/23/18 12:00 09/22/18 11:59 09/04/18 05:56 Lansoprazole (Prevacid) 30 mg DAILY GT 08/25/18 09:00 09/24/18 08:59 09/03/18 09:25 Levetiracetam (Keppra) 750 mg Q12HR GT 09/04/18 09:00 10/04/18 08:59 Levothyroxine Sodium (Synthroid) 125 mcg DAILY@0630 ORAL 08/24/18 06:30 09/23/18 06:29 09/04/18 05:55 Morphine Sulfate (Morphine Sulfate) 1 mg Q4H PRN IVP Moderate Pain(4-6) 08/29/18 20:54 09/05/18 20:53 James Langston MD Sep 04, 2018 07:45
[2018-09-04 08:00] VITALS: BP 131/66
[2018-09-04 08:03] LABS: BASOPHILS % (AUTO) 0.5 % (0.0-2.0); EOSINOPHILS % (AUTO) 1.2 % (0.0-3.0); HEMATOCRIT 28.9 % (42.0-52.0); HEMOGLOBIN 9.3 G/DL (14.2-18.0); LYMPHOCYTES % (AUTO) 14.5 % (20.0-45.0); MEAN CORPUSCULAR VOLUME 94 FL (80-99); MONOCYTES % (AUTO) 5.9 % (1.0-10.0); NEUTROPHILS % (AUTO) 77.8 % (45.0-75.0); PLATELET COUNT 347 K/UL (150-450); RED BLOOD COUNT 3.08 M/UL (4.70-6.10); RED CELL DISTRIBUTION WIDTH 15.3 % (11.6-14.8); WHITE BLOOD COUNT 6.1 K/UL (4.8-10.8)
[2018-09-04] MEDS: Aspirin Baby 81mg GT SCH (08:27)
[2018-09-04] MEDS: Heparin 5000 units/ml inj SUBQ SCH ×2 (08:29→20:49)
[2018-09-04 08:36] LABS: ALANINE AMINOTRANSFERASE 11 U/L (12-78); ALBUMIN 1.5 G/DL (3.4-5.0); ALBUMIN/GLOBULIN RATIO 0.3 (1.0-2.7); ALKALINE PHOSPHATASE 71 U/L (46-116); ANION GAP 6 mmol/L (5-15); ASPARTATE AMINO TRANSFERASE 21 U/L (15-37); BILIRUBIN,TOTAL 0.2 MG/DL (0.2-1.0); BLOOD UREA NITROGEN 13 mg/dL (7-18); CALCIUM 8.7 MG/DL (8.5-10.1); CARBON DIOXIDE 28 MMOL/L (21-32); CHLORIDE 102 MMOL/L (98-107); CREATININE 0.7 MG/DL (0.55-1.30); SODIUM 136 MMOL/L (136-145)
--- NOTE | 2018-09-04 10:02 | Urology Progress Note ---
Assessment/Plan Assessment/Plan 1. Urinary retention with chronic suprapubic tube. 2. Benign prostatic hypertrophy history. 3. Neurogenic bladder. 4. Urinary tract infection and colonization. 5. Hematuria. 6. Proteinuria. keep SP tube, last exchanged 08/23 hand irrigated and do PRN cont with abx as ordered cysto later consider recheck urine cx at some point Subjective Allergies: Coded Allergies: No Known Allergies (Unverified , 06/17/18) Subjective all noted, peritoneal cath removed 09/01 Objective Last 24 Hour Vital Signs Date Time Temp Pulse Resp B/P (MAP) Pulse Ox O2 Delivery O2 Flow Rate FiO2 09/04/18 09:00 Nasal Cannula 2.0 09/04/18 08:00 97.0 70 19 131/66 (87) 98 97.0 09/04/18 07:52 74 09/04/18 07:39 98 Nasal Cannula 2.0 28 09/04/18 07:39 Nasal Cannula 2.0 28 09/04/18 04:00 103 09/04/18 04:00 98.0 87 23 120/69 (86) 95 98.0 09/04/18 00:58 62 19 98 Full Face 35 09/04/18 00:00 98.0 55 23 128/66 (86) 97 98.0 09/04/18 00:00 61 09/03/18 23:22 67 20 98 Full Face 35 09/03/18 21:00 Nasal Cannula 2.0 09/03/18 20:00 57 09/03/18 20:00 98.1 57 20 116/56 (76) 98 98.1 09/03/18 19:06 97 Nasal Cannula 2.0 28 09/03/18 19:06 Nasal Cannula 2.0 28 09/03/18 16:00 98.8 76 20 135/63 (87) 94 98.8 09/03/18 15:33 83 09/03/18 12:00 97.8 79 21 136/68 (90) 93 97.8 09/03/18 11:55 77 Intake and Output 09/03/18 09/04/18 19:00 07:00 Output Total 500 ml 800 ml Balance -500 ml -800 ml Output Urine Total 500 ml 800 ml Microbiology Date/Time Source Procedure Growth Status 08/21/18 15:15 Blood Blood Culture - Final NO GROWTH AFTER 5 DAYS Complete 08/23/18 18:45 Wound Gram Stain - Final Complete 08/23/18 18:45 Wound Culture - Final Staphylococcus Aureus - Mrsa Complete 08/23/18 11:30 Sputum Gram Stain - Final Complete 08/23/18 11:30 Sputum Sputum Culture - Final NORMAL UPPER RESPIRATORY THEO PRESENT Complete 08/25/18 17:00 Stool Clostridium difficile Toxin Assay - Final Complete 08/21/18 15:15 Urine,Clean Catch Urine Culture - Final Providencia Stuartii Complete 09/01/18 15:56 Abdominal Abscess Gram Stain - Final Resulted 09/01/18 15:56 Aerobic Culture - Preliminary Escherichia Coli - Esbl Gram Negative Bacillus 2 Resulted 09/01/18 15:56 Abdominal Abscess Anaerobic Culture - Preliminary Resulted Current Medications Medications (Trade) Dose Ordered Sig/Benjamin Route PRN Reason Start Time Stop Time Status Last Admin Dose Admin Acetaminophen (Tylenol) 650 mg Q4H PRN ORAL Mild Pain/Temp > 100.5 08/28/18 09:00 09/27/18 08:59 08/28/18 10:16 Acetaminophen/ Hydrocodone Bitart ([place] 5/325) 1 tab Q6H PRN ORAL For Pain 08/29/18 23:30 09/05/18 23:29 Aspirin (ASA) 81 mg DAILY GT 08/23/18 09:00 09/22/18 08:59 09/04/18 08:27 Dextrose (Dextrose 50%) 25 ml Q30M PRN IV Hypoglycemia 08/21/18 20:00 09/20/18 19:59 Dextrose (Dextrose 50%) 50 ml Q30M PRN IV Hypoglycemia 08/21/18 20:00 09/20/18 19:59 Ertapenem 1 gm/ Sodium Chloride 55 ml @ 110 mls/hr Q24H IVPB 09/03/18 12:00 09/08/18 11:59 09/03/18 12:09 Heparin Sodium (Porcine) (Heparin 5000 units/ml) 5,000 units EVERY 12 HOURS SUBQ 08/21/18 21:00 09/20/18 20:59 09/04/18 08:29 Insulin Aspart (NovoLOG) EVERY 6 HOURS SUBQ 08/23/18 12:00 09/22/18 11:59 09/04/18 05:56 Lansoprazole (Prevacid) 30 mg DAILY GT 08/25/18 09:00 09/24/18 08:59 09/04/18 08:27 Levetiracetam (Keppra) 750 mg Q12HR GT 09/04/18 09:00 10/04/18 08:59 09/04/18 08:27 Levothyroxine Sodium (Synthroid) 125 mcg DAILY@0630 ORAL 08/24/18 06:30 09/23/18 06:29 09/04/18 05:55 Morphine Sulfate (Morphine Sulfate) 1 mg Q4H PRN IVP Moderate Pain(4-6) 08/29/18 20:54 09/05/18 20:53 Laboratory Tests 09/04/18 07:10: White Blood Count 6.1, Red Blood Count 3.08L, Hemoglobin 9.3L, Hematocrit 28.9L , Mean Corpuscular Volume 94, Mean Corpuscular Hemoglobin 30.3, Mean Corpuscular Hemoglobin Concent 32.3, Red Cell Distribution Width 15.3H, Platelet Count 347, Mean Platelet Volume 5.1L, Neutrophils (%) (Auto) 77.8H, Lymphocytes (%) (Auto) 14.5L, Monocytes (%) (Auto) 5.9, Eosinophils (%) (Auto) 1.2, Basophils (%) (Auto) 0.5, Sodium Level 136, Potassium Level 4.0, Chloride Level 102, Carbon Dioxide Level 28, Anion Gap 6, Blood Urea Nitrogen 13, Creatinine 0.7, Estimat Glomerular Filtration Rate , Glucose Level 126H, Calcium Level 8.7, Magnesium Level 1.7L, Total Bilirubin 0.2, Aspartate Amino Transf (AST/SGOT) 21, Alanine Aminotransferase (ALT/SGPT) 11L, Alkaline Phosphatase 71, Pro-B-Type Natriuretic Peptide 5046H, Total Protein 6.8, Albumin 1.5L, Globulin 5.3, Albumin/Globulin Ratio 0.3L Height (Feet): 5 Height (Inches): 5.00 Weight (Pounds): 125 Objective exam stable, urine clearing ALEJANDRO COLLIER Sep 04, 2018 10:02
--- NOTE | 2018-09-04 10:28 | Infectious Diseases Prog Note ---
Assessment/Plan Assessment/Plan A: Peritoneal abscess, culture ESBL E. coli Complicated UTI treated Pneumonia Hypoxic respiratory failure Dementia DM HPN Sacral stage 3 pressure ulcer Broken peritoneal catheter P; Agree with Ertapenem Repeat CXR Subjective ROS Limited/Unobtainable: Yes Allergies: Coded Allergies: No Known Allergies (Unverified , 06/17/18) Objective Vital Signs Last 24 Hour Vital Signs Date Time Temp Pulse Resp B/P (MAP) Pulse Ox O2 Delivery O2 Flow Rate FiO2 09/04/18 09:00 Nasal Cannula 2.0 09/04/18 08:00 97.0 70 19 131/66 (87) 98 97.0 09/04/18 07:52 74 09/04/18 07:39 98 Nasal Cannula 2.0 28 09/04/18 07:39 Nasal Cannula 2.0 28 09/04/18 04:00 103 09/04/18 04:00 98.0 87 23 120/69 (86) 95 98.0 09/04/18 00:58 62 19 98 Full Face 35 09/04/18 00:00 98.0 55 23 128/66 (86) 97 98.0 09/04/18 00:00 61 09/03/18 23:22 67 20 98 Full Face 35 09/03/18 21:00 Nasal Cannula 2.0 09/03/18 20:00 57 09/03/18 20:00 98.1 57 20 116/56 (76) 98 98.1 09/03/18 19:06 97 Nasal Cannula 2.0 28 09/03/18 19:06 Nasal Cannula 2.0 28 09/03/18 16:00 98.8 76 20 135/63 (87) 94 98.8 09/03/18 15:33 83 09/03/18 12:00 97.8 79 21 136/68 (90) 93 97.8 09/03/18 11:55 77 Height (Feet): 5 Height (Inches): 5.00 Weight (Pounds): 125 General Appearance: no acute distress HEENT: mucous membranes moist Respiratory/Chest: crackles/rales, rhonchi - bilaterally Cardiovascular: normal rate Abdomen: soft, non tender, other - GT feeding Genitourinary: other - suprapubic catheter Extremities: no edema Neurologic/Psychiatric: aphasia Microbiology Date/Time Source Procedure Growth Status 09/01/18 15:56 Abdominal Abscess Gram Stain - Final Resulted 09/01/18 15:56 Aerobic Culture - Preliminary Escherichia Coli - Esbl Gram Negative Bacillus 2 Resulted 09/01/18 15:56 Abdominal Abscess Anaerobic Culture - Preliminary Resulted Laboratory Tests Test 09/04/18 07:10 White Blood Count 6.1 K/UL (4.8-10.8) Red Blood Count 3.08 M/UL (4.70-6.10) L Hemoglobin 9.3 G/DL (14.2-18.0) L Hematocrit 28.9 % (42.0-52.0) L Mean Corpuscular Volume 94 FL (80-99) Mean Corpuscular Hemoglobin 30.3 PG (27.0-31.0) Mean Corpuscular Hemoglobin Concent 32.3 G/DL (32.0-36.0) Red Cell Distribution Width 15.3 % (11.6-14.8) H Platelet Count 347 K/UL (150-450) Mean Platelet Volume 5.1 FL (6.5-10.1) L Neutrophils (%) (Auto) 77.8 % (45.0-75.0) H Lymphocytes (%) (Auto) 14.5 % (20.0-45.0) L Monocytes (%) (Auto) 5.9 % (1.0-10.0) Eosinophils (%) (Auto) 1.2 % (0.0-3.0) Basophils (%) (Auto) 0.5 % (0.0-2.0) Sodium Level 136 MMOL/L (136-145) Potassium Level 4.0 MMOL/L (3.5-5.1) Chloride Level 102 MMOL/L (98-107) Carbon Dioxide Level 28 MMOL/L (21-32) Anion Gap 6 mmol/L (5-15) Blood Urea Nitrogen 13 mg/dL (7-18) Creatinine 0.7 MG/DL (0.55-1.30) Estimat Glomerular Filtration Rate mL/min (>60) Glucose Level 126 MG/DL (74-106) H Calcium Level 8.7 MG/DL (8.5-10.1) Magnesium Level 1.7 MG/DL (1.8-2.4) L Total Bilirubin 0.2 MG/DL (0.2-1.0) Aspartate Amino Transf (AST/SGOT) 21 U/L (15-37) Alanine Aminotransferase (ALT/SGPT) 11 U/L (12-78) L Alkaline Phosphatase 71 U/L (46-116) Pro-B-Type Natriuretic Peptide 5046 pg/mL (0-125) H Total Protein 6.8 G/DL (6.4-8.2) Albumin 1.5 G/DL (3.4-5.0) L Globulin 5.3 g/dL Albumin/Globulin Ratio 0.3 (1.0-2.7) L Current Medications Medications (Trade) Dose Ordered Sig/Benjamin Route PRN Reason Start Time Stop Time Status Last Admin Dose Admin Acetaminophen (Tylenol) 650 mg Q4H PRN ORAL Mild Pain/Temp > 100.5 08/28/18 09:00 09/27/18 08:59 08/28/18 10:16 Acetaminophen/ Hydrocodone Bitart ([place] 5/325) 1 tab Q6H PRN ORAL For Pain 08/29/18 23:30 09/05/18 23:29 Aspirin (ASA) 81 mg DAILY GT 08/23/18 09:00 09/22/18 08:59 09/04/18 08:27 Dextrose (Dextrose 50%) 25 ml Q30M PRN IV Hypoglycemia 08/21/18 20:00 09/20/18 19:59 Dextrose (Dextrose 50%) 50 ml Q30M PRN IV Hypoglycemia 08/21/18 20:00 09/20/18 19:59 Ertapenem 1 gm/ Sodium Chloride 55 ml @ 110 mls/hr Q24H IVPB 09/03/18 12:00 09/08/18 11:59 09/03/18 12:09 Heparin Sodium (Porcine) (Heparin 5000 units/ml) 5,000 units EVERY 12 HOURS SUBQ 08/21/18 21:00 09/20/18 20:59 09/04/18 08:29 Insulin Aspart (NovoLOG) EVERY 6 HOURS SUBQ 08/23/18 12:00 09/22/18 11:59 09/04/18 05:56 Lansoprazole (Prevacid) 30 mg DAILY GT 08/25/18 09:00 09/24/18 08:59 09/04/18 08:27 Levetiracetam (Keppra) 750 mg Q12HR GT 09/04/18 09:00 10/04/18 08:59 09/04/18 08:27 Levothyroxine Sodium (Synthroid) 125 mcg DAILY@0630 ORAL 08/24/18 06:30 09/23/18 06:29 09/04/18 05:55 Morphine Sulfate (Morphine Sulfate) 1 mg Q4H PRN IVP Moderate Pain(4-6) 08/29/18 20:54 09/05/18 20:53 Slade Odonnell MD Sep 04, 2018 10:28
--- NOTE | 2018-09-04 10:56 | General Progress Note ---
Assessment/Plan Problem List: (1) UTI (urinary tract infection) ICD Codes: N39.0 - Urinary tract infection, site not specified SNOMED: 05257390 Qualifiers: Qualified Codes: T83.511A - Infection and inflammatory reaction due to indwelling urethral catheter, initial encounter; N39.0 - Urinary tract infection , site not specified (2) Severe sepsis ICD Codes: A41.9 - Sepsis, unspecified organism; R65.20 - Severe sepsis without septic shock SNOMED: 43694558 (3) NSTEMI (non-ST elevated myocardial infarction) ICD Codes: I21.4 - Non-ST elevation (NSTEMI) myocardial infarction SNOMED: 014761801 (4) Right lower lobe pneumonia ICD Codes: J18.1 - Lobar pneumonia, unspecified organism SNOMED: 760903885 Qualifiers: Qualified Codes: J18.1 - Lobar pneumonia, unspecified organism (5) Elevated lactic acid level ICD Codes: R79.89 - Other specified abnormal findings of blood chemistry SNOMED: 3505043 Status: stable, progressing Assessment/Plan iv abx per id dc ivf bipap as needed pain rx as needed resp rx gt feeds dvt/stress ulcer prophlaxis skin care dc planning if ok with all. Subjective ROS Limited/Unobtainable: Yes Constitutional: Reports: malaise HEENT: Reports: no symptoms Respiratory: Reports: cough Gastrointestinal/Abdominal: Reports: difficulty swallowing Genitourinary: Reports: no symptoms Neurologic/Psychiatric: Reports: pre-existing deficit Endocrine: Reports: no symptoms Hematologic/Lymphatic: Reports: no symptoms Allergies: Coded Allergies: No Known Allergies (Unverified , 06/17/18) All Systems: reviewed and negative except above Subjective no events. no new complaints. no fevers. tolerating feeds. on iv abx Objective Last 24 Hour Vital Signs Date Time Temp Pulse Resp B/P (MAP) Pulse Ox O2 Delivery O2 Flow Rate FiO2 09/04/18 09:00 Nasal Cannula 2.0 09/04/18 08:00 97.0 70 19 131/66 (87) 98 97.0 09/04/18 07:52 74 09/04/18 07:39 98 Nasal Cannula 2.0 28 09/04/18 07:39 Nasal Cannula 2.0 28 09/04/18 04:00 103 09/04/18 04:00 98.0 87 23 120/69 (86) 95 98.0 09/04/18 00:58 62 19 98 Full Face 35 09/04/18 00:00 98.0 55 23 128/66 (86) 97 98.0 09/04/18 00:00 61 09/03/18 23:22 67 20 98 Full Face 35 09/03/18 21:00 Nasal Cannula 2.0 09/03/18 20:00 57 09/03/18 20:00 98.1 57 20 116/56 (76) 98 98.1 09/03/18 19:06 97 Nasal Cannula 2.0 28 09/03/18 19:06 Nasal Cannula 2.0 28 09/03/18 16:00 98.8 76 20 135/63 (87) 94 98.8 09/03/18 15:33 83 09/03/18 12:00 97.8 79 21 136/68 (90) 93 97.8 09/03/18 11:55 77 Intake and Output 09/03/18 09/04/18 19:00 07:00 Output Total 500 ml 800 ml Balance -500 ml -800 ml Output Urine Total 500 ml 800 ml Laboratory Tests 09/04/18 07:10: White Blood Count 6.1, Red Blood Count 3.08L, Hemoglobin 9.3L, Hematocrit 28.9L , Mean Corpuscular Volume 94, Mean Corpuscular Hemoglobin 30.3, Mean Corpuscular Hemoglobin Concent 32.3, Red Cell Distribution Width 15.3H, Platelet Count 347, Mean Platelet Volume 5.1L, Neutrophils (%) (Auto) 77.8H, Lymphocytes (%) (Auto) 14.5L, Monocytes (%) (Auto) 5.9, Eosinophils (%) (Auto) 1.2, Basophils (%) (Auto) 0.5, Sodium Level 136, Potassium Level 4.0, Chloride Level 102, Carbon Dioxide Level 28, Anion Gap 6, Blood Urea Nitrogen 13, Creatinine 0.7, Estimat Glomerular Filtration Rate , Glucose Level 126H, Calcium Level 8.7, Magnesium Level 1.7L, Total Bilirubin 0.2, Aspartate Amino Transf (AST/SGOT) 21, Alanine Aminotransferase (ALT/SGPT) 11L, Alkaline Phosphatase 71, Pro-B-Type Natriuretic Peptide 5046H, Total Protein 6.8, Albumin 1.5L, Globulin 5.3, Albumin/Globulin Ratio 0.3L Height (Feet): 5 Height (Inches): 5.00 Weight (Pounds): 125 Objective General Appearance: WD/WN, on bipap. opens eyes Neck: supple Cardiovascular: normal rate, regular rhythm Respiratory/Chest: chest wall non-tender, lungs with farhat rhonchi Abdomen: normal bowel sounds, non tender, soft, no organomegaly Neurologic: unresponsive, aphasia Michael Zuniga MD Sep 04, 2018 10:56
[2018-09-04 12:00] VITALS: BP 130/70
[2018-09-04] MEDS: Ertapenem 1gm in NS 55ml IVPB SCH (12:08)
[2018-09-04 16:00] VITALS: BP 131/71
[2018-09-04 20:00] VITALS: BP 134/68
[2018-09-05] VITALS: BP 133/69
--- NOTE | 2018-09-05 03:00 | Progress Note ---
DATE: 09/04/2018 CARDIOLOGY PROGRESS NOTE SUBJECTIVE: The patient is in no distress. He had a seizure last night. Keppra was rebolused intravenously. OBJECTIVE: VITAL SIGNS: Blood pressure 131/66, pulse 70, and respiratory rate 19. LUNGS: Bilateral breath sounds. No wheezing. CARDIAC: Regular rhythm and rate. Normal S1 and S2. ABDOMEN: Soft. Suprapubic catheter with G-tube intact. Postsurgical drain noted, Denny. EXTREMITIES: No edema. IMPRESSION: 1. Breakthrough seizure. 2. Ischemic cardiomyopathy with non-ST elevation infarction, now stabilized. 3. Hypertensive heart disease. 4. Status post removal of retained peritoneal dialysis catheter. 5. Recovered shock due to sepsis. 6. Urinary tract infection. 7. Aspiration pneumonia. 8. Suprapubic catheter. 9. Dysphagia with G-tube. 10. Dementia. PLAN: 1. Monitor for recurring seizure. 2. Continue Keppra. 3. Titrate cardiovascular regimen based on clinical parameters. 4. Postop surgical follow up. 5. Antimicrobials per Infectious Disease technical assistance consultant. Bryon Ramirez M.D. DR: CITLALLI JOB#: [id number] CC:
[2018-09-05 04:00] VITALS: BP 111/56
[2018-09-05] MEDS: Levothyroxine 125mcg tab ORAL SCH (06:03)
[2018-09-05] MEDS: NovoLOG Insulin Flexpen SUBQ SCH ×3 (06:06→17:59)
[2018-09-05 08:00] VITALS: BP 131/71
[2018-09-05] MEDS: Aspirin Baby 81mg GT SCH (08:09)
[2018-09-05] MEDS: Heparin 5000 units/ml inj SUBQ SCH ×2 (08:10→20:58)
--- NOTE | 2018-09-05 08:47 | Pulmonology Progress Note ---
Assessment/Plan Assessment/Plan IMPRESSION: 1. Respiratory failure, resolved 2. Sepsis with shock. improved 3. Dysphagia. 4. G-tube. 5. CVA. 6. Altered mental status. 7. Aspiration pneumonia 8. Severe protein-calorie malnutrition. 9. Diabetes. PLAN respiratory care as is aspiration precautions as is antibiotics noted imaging noted; repeat noted and will order for this week close follow up for change DVT prophylaxis dc planning impression, plan, and exam edited and reviewed in detail care discussed with RN Subjective ROS Limited/Unobtainable: Yes Allergies: Coded Allergies: No Known Allergies (Unverified , 06/17/18) Subjective reviewed care care noted confused at baseline back on antibiotics Objective Last 24 Hour Vital Signs Date Time Temp Pulse Resp B/P (MAP) Pulse Ox O2 Delivery O2 Flow Rate FiO2 09/05/18 05:14 66 22 99 Facial 35 09/05/18 04:00 96.1 58 26 111/56 (74) 99 96.1 09/05/18 04:00 60 09/05/18 03:06 60 20 99 Facial 35 09/05/18 01:07 63 15 98 Facial 35 09/05/18 00:00 96.5 68 19 133/69 (90) 96 96.5 09/05/18 00:00 59 09/04/18 23:17 71 18 98 Facial 35 09/04/18 21:00 Nasal Cannula 2.0 09/04/18 20:00 69 09/04/18 20:00 97.1 70 21 134/68 (90) 95 97.1 09/04/18 19:43 Nasal Cannula 2.0 28 09/04/18 19:43 98 Nasal Cannula 2.0 28 09/04/18 16:00 98.2 65 21 131/71 (91) 95 98.2 09/04/18 15:51 83 09/04/18 12:00 97.5 64 20 130/70 (90) 98 97.5 09/04/18 11:45 66 09/04/18 09:00 Nasal Cannula 2.0 Intake and Output 09/04/18 09/05/18 19:00 07:00 Intake Total 80 ml 320 ml Output Total 500 ml 800 ml Balance -420 ml -480 ml Intake Free Water 50 ml 50 ml Tube Feeding 30 ml 270 ml Output Urine Total 500 ml 800 ml Objective GENERAL: Ill-appearing male, withdrawn, nonverbal. ALOC LUNGS: some rhonchi, moderate air entry, symmetric. CARDIAC: Normal S1, S2. RRR without murmurs, rubs, or gallops. ABDOMEN: Soft, nontender, nondistended. no distention; no HSM EXTREMITIES: No cyanosis or clubbing. no edema SKIN: noted GENITOURINARY: suprapubic catheter. NEUROLOGIC: Neurologically overall same nonverbal at present reviewed and edited Current Medications Medications (Trade) Dose Ordered Sig/Benjamin Route PRN Reason Start Time Stop Time Status Last Admin Dose Admin Acetaminophen (Tylenol) 650 mg Q4H PRN ORAL Mild Pain/Temp > 100.5 08/28/18 09:00 09/27/18 08:59 08/28/18 10:16 Acetaminophen/ Hydrocodone Bitart ([place] 5/325) 1 tab Q6H PRN ORAL For Pain 08/29/18 23:30 09/05/18 23:29 Aspirin (ASA) 81 mg DAILY GT 08/23/18 09:00 09/22/18 08:59 09/05/18 08:09 Dextrose (Dextrose 50%) 25 ml Q30M PRN IV Hypoglycemia 08/21/18 20:00 09/20/18 19:59 Dextrose (Dextrose 50%) 50 ml Q30M PRN IV Hypoglycemia 08/21/18 20:00 09/20/18 19:59 Ertapenem 1 gm/ Sodium Chloride 55 ml @ 110 mls/hr Q24H IVPB 09/03/18 12:00 09/08/18 11:59 09/04/18 12:08 Heparin Sodium (Porcine) (Heparin 5000 units/ml) 5,000 units EVERY 12 HOURS SUBQ 08/21/18 21:00 09/20/18 20:59 09/05/18 08:10 Insulin Aspart (NovoLOG) EVERY 6 HOURS SUBQ 08/23/18 12:00 09/22/18 11:59 09/05/18 06:06 Lansoprazole (Prevacid) 30 mg DAILY GT 08/25/18 09:00 09/24/18 08:59 09/05/18 08:09 Levetiracetam (Keppra) 750 mg Q12HR GT 09/04/18 09:00 10/04/18 08:59 09/05/18 08:09 Levothyroxine Sodium (Synthroid) 125 mcg DAILY@0630 ORAL 08/24/18 06:30 09/23/18 06:29 09/05/18 06:03 Morphine Sulfate (Morphine Sulfate) 1 mg Q4H PRN IVP Moderate Pain(4-6) 08/29/18 20:54 09/05/18 20:53 James Langston MD Sep 05, 2018 08:47
--- NOTE | 2018-09-05 10:00 | Podiatric Progress Note ---
Assessment/Plan Patient Khoi Ahn is a 83 year old male who was admitted on Aug 21, 2018 at 15:57 with Assessment/Plan A/ 1) Diabetic foot ulcer right 2nd toe 2) Necrosis left heel 3) DM 4) Abnormal mobility P/ 1) Cont wound care as ordered with off loading - improving with treatmnet 2) Reviewed: Arterial ultz BLE - mild calcific dz X-rays right foot - no osteo ESR, CRP - reviewed 3) No surgical intervention at this time 4) Will follow Subjective Allergies: Coded Allergies: No Known Allergies (Unverified , 06/17/18) Subjective Nonverbal Objective Exam Last 24 Hour Vital Signs Date Time Temp Pulse Resp B/P (MAP) Pulse Ox O2 Delivery O2 Flow Rate FiO2 09/05/18 08:00 96.8 62 18 131/71 (91) 97 96.8 09/05/18 05:14 66 22 99 Facial 35 09/05/18 04:00 96.1 58 26 111/56 (74) 99 96.1 09/05/18 04:00 60 09/05/18 03:06 60 20 99 Facial 35 09/05/18 01:07 63 15 98 Facial 35 09/05/18 00:00 96.5 68 19 133/69 (90) 96 96.5 09/05/18 00:00 59 09/04/18 23:17 71 18 98 Facial 35 09/04/18 21:00 Nasal Cannula 2.0 09/04/18 20:00 69 09/04/18 20:00 97.1 70 21 134/68 (90) 95 97.1 09/04/18 19:43 Nasal Cannula 2.0 28 09/04/18 19:43 98 Nasal Cannula 2.0 28 09/04/18 16:00 98.2 65 21 131/71 (91) 95 98.2 09/04/18 15:51 83 09/04/18 12:00 97.5 64 20 130/70 (90) 98 97.5 09/04/18 11:45 66 Microbiology Date/Time Source Procedure Growth Status 08/21/18 15:15 Blood Blood Culture - Final NO GROWTH AFTER 5 DAYS Complete 08/23/18 18:45 Wound Gram Stain - Final Complete 08/23/18 18:45 Wound Culture - Final Staphylococcus Aureus - Mrsa Complete 08/23/18 11:30 Sputum Gram Stain - Final Complete 08/23/18 11:30 Sputum Sputum Culture - Final NORMAL UPPER RESPIRATORY KRISSY PRESENT Complete 08/25/18 17:00 Stool Clostridium difficile Toxin Assay - Final Complete 08/21/18 15:15 Urine,Clean Catch Urine Culture - Final Providencia Stuartii Complete 09/01/18 15:56 Abdominal Abscess Gram Stain - Final Resulted 09/01/18 15:56 Aerobic Culture - Final Escherichia Coli - Esbl Providencia Stuartii Usual Skin Krissy Resulted 09/01/18 15:56 Abdominal Abscess Anaerobic Culture - Preliminary Resulted Dermatological Dermatological Narrative right 2nd toe wound improving - mild serous drainage. smaller and granular Left heel wound - superficial eschar autolysing and partially granular. No signs of infection noted. Heel protectors are in place Flo De Jesus DPM Sep 05, 2018 10:00
--- NOTE | 2018-09-05 10:44 | General Progress Note ---
Progress Note Progress Note Surgery: no acute events. cultures noted drainage from luis decreasing -will plan to remove luis when output decreases -rubio out in 1 week. thank you Ezequiel Hayes Sep 05, 2018 10:44
--- NOTE | 2018-09-05 11:18 | Diagnostic Imaging Report ---
Indication: Dyspnea Comparison: 08/31/2018 A single view chest radiograph was obtained. Findings: Infiltrate at the right lung base again demonstrated, which may be slightly improved since the last study. Heart size is stable. Bones are osteopenic. IMPRESSION: Right basal infiltrate. Marginal improvement is probably present.
[2018-09-05 12:00] VITALS: BP 127/67
[2018-09-05] MEDS: Ertapenem 1gm in NS 55ml IVPB SCH (12:12)
--- NOTE | 2018-09-05 12:20 | Infectious Diseases Prog Note ---
Assessment/Plan Assessment/Plan A: Peritoneal abscess, culture ESBL E. coli Complicated UTI treated Pneumonia Hypoxic respiratory failure Dementia DM HPN Sacral stage 3 pressure ulcer Broken peritoneal catheter P; Continue Ertapenem Subjective ROS Limited/Unobtainable: Yes Allergies: Coded Allergies: No Known Allergies (Unverified , 06/17/18) Objective Vital Signs Last 24 Hour Vital Signs Date Time Temp Pulse Resp B/P (MAP) Pulse Ox O2 Delivery O2 Flow Rate FiO2 09/05/18 09:00 Nasal Cannula 2.0 09/05/18 08:00 96.8 62 18 131/71 (91) 97 96.8 09/05/18 07:39 56 09/05/18 05:14 66 22 99 Facial 35 09/05/18 04:00 96.1 58 26 111/56 (74) 99 96.1 09/05/18 04:00 60 09/05/18 03:06 60 20 99 Facial 35 09/05/18 01:07 63 15 98 Facial 35 09/05/18 00:00 96.5 68 19 133/69 (90) 96 96.5 09/05/18 00:00 59 09/04/18 23:17 71 18 98 Facial 35 09/04/18 21:00 Nasal Cannula 2.0 09/04/18 20:00 69 09/04/18 20:00 97.1 70 21 134/68 (90) 95 97.1 09/04/18 19:43 Nasal Cannula 2.0 28 09/04/18 19:43 98 Nasal Cannula 2.0 28 09/04/18 16:00 98.2 65 21 131/71 (91) 95 98.2 09/04/18 15:51 83 Height (Feet): 5 Height (Inches): 5.00 Weight (Pounds): 125 HEENT: mucous membranes moist Respiratory/Chest: rhonchi - bilaterally Cardiovascular: normal rate Abdomen: soft, non tender, other - GT feeding Genitourinary: other - Suprapubic catheter Extremities: no edema Current Medications Medications (Trade) Dose Ordered Sig/Benjamin Route PRN Reason Start Time Stop Time Status Last Admin Dose Admin Acetaminophen (Tylenol) 650 mg Q4H PRN ORAL Mild Pain/Temp > 100.5 08/28/18 09:00 09/27/18 08:59 08/28/18 10:16 Acetaminophen/ Hydrocodone Bitart ([place] 5/325) 1 tab Q6H PRN ORAL For Pain 08/29/18 23:30 09/05/18 23:29 Aspirin (ASA) 81 mg DAILY GT 08/23/18 09:00 09/22/18 08:59 09/05/18 08:09 Dextrose (Dextrose 50%) 25 ml Q30M PRN IV Hypoglycemia 08/21/18 20:00 09/20/18 19:59 Dextrose (Dextrose 50%) 50 ml Q30M PRN IV Hypoglycemia 08/21/18 20:00 09/20/18 19:59 Ertapenem 1 gm/ Sodium Chloride 55 ml @ 110 mls/hr Q24H IVPB 09/03/18 12:00 09/08/18 11:59 09/05/18 12:12 Heparin Sodium (Porcine) (Heparin 5000 units/ml) 5,000 units EVERY 12 HOURS SUBQ 08/21/18 21:00 09/20/18 20:59 09/05/18 08:10 Insulin Aspart (NovoLOG) EVERY 6 HOURS SUBQ 08/23/18 12:00 09/22/18 11:59 09/05/18 06:06 Lansoprazole (Prevacid) 30 mg DAILY GT 08/25/18 09:00 09/24/18 08:59 09/05/18 08:09 Levetiracetam (Keppra) 750 mg Q12HR GT 09/04/18 09:00 10/04/18 08:59 09/05/18 08:09 Levothyroxine Sodium (Synthroid) 125 mcg DAILY@0630 ORAL 08/24/18 06:30 09/23/18 06:29 09/05/18 06:03 Morphine Sulfate (Morphine Sulfate) 1 mg Q4H PRN IVP Moderate Pain(4-6) 08/29/18 20:54 09/05/18 20:53 Slade Odonnell MD Sep 05, 2018 12:20
--- NOTE | 2018-09-05 12:36 | Urology Progress Note ---
Assessment/Plan Assessment/Plan 1. Urinary retention with chronic suprapubic tube. 2. Benign prostatic hypertrophy history. 3. Neurogenic bladder. 4. Urinary tract infection and colonization. 5. Hematuria. 6. Proteinuria. keep SP tube, last exchanged 08/23 hand irrigated and do PRN cont with abx as ordered cysto later consider recheck urine cx at some point Subjective Allergies: Coded Allergies: No Known Allergies (Unverified , 06/17/18) Subjective all noted, peritoneal cath removed 09/01 Objective Last 24 Hour Vital Signs Date Time Temp Pulse Resp B/P (MAP) Pulse Ox O2 Delivery O2 Flow Rate FiO2 09/05/18 09:00 Nasal Cannula 2.0 09/05/18 08:00 96.8 62 18 131/71 (91) 97 96.8 09/05/18 07:39 56 09/05/18 05:14 66 22 99 Facial 35 09/05/18 04:00 96.1 58 26 111/56 (74) 99 96.1 09/05/18 04:00 60 09/05/18 03:06 60 20 99 Facial 35 09/05/18 01:07 63 15 98 Facial 35 09/05/18 00:00 96.5 68 19 133/69 (90) 96 96.5 09/05/18 00:00 59 09/04/18 23:17 71 18 98 Facial 35 09/04/18 21:00 Nasal Cannula 2.0 09/04/18 20:00 69 09/04/18 20:00 97.1 70 21 134/68 (90) 95 97.1 09/04/18 19:43 Nasal Cannula 2.0 28 09/04/18 19:43 98 Nasal Cannula 2.0 28 09/04/18 16:00 98.2 65 21 131/71 (91) 95 98.2 09/04/18 15:51 83 Intake and Output 09/04/18 09/05/18 19:00 07:00 Intake Total 80 ml 320 ml Output Total 500 ml 800 ml Balance -420 ml -480 ml Intake Free Water 50 ml 50 ml Tube Feeding 30 ml 270 ml Output Urine Total 500 ml 800 ml Microbiology Date/Time Source Procedure Growth Status 08/21/18 15:15 Blood Blood Culture - Final NO GROWTH AFTER 5 DAYS Complete 08/23/18 18:45 Wound Gram Stain - Final Complete 08/23/18 18:45 Wound Culture - Final Staphylococcus Aureus - Mrsa Complete 08/23/18 11:30 Sputum Gram Stain - Final Complete 08/23/18 11:30 Sputum Sputum Culture - Final NORMAL UPPER RESPIRATORY KRISSY PRESENT Complete 08/25/18 17:00 Stool Clostridium difficile Toxin Assay - Final Complete 08/21/18 15:15 Urine,Clean Catch Urine Culture - Final Providencia Stuartii Complete 09/01/18 15:56 Abdominal Abscess Gram Stain - Final Complete 09/01/18 15:56 Aerobic Culture - Final Escherichia Coli - Esbl Providencia Stuartii Usual Skin Krissy Complete 09/01/18 15:56 Abdominal Abscess Anaerobic Culture - Final NO ANAEROBES ISOLATED Complete Current Medications Medications (Trade) Dose Ordered Sig/Bejnamin Route PRN Reason Start Time Stop Time Status Last Admin Dose Admin Acetaminophen (Tylenol) 650 mg Q4H PRN ORAL Mild Pain/Temp > 100.5 08/28/18 09:00 09/27/18 08:59 08/28/18 10:16 Acetaminophen/ Hydrocodone Bitart ([place] 5/325) 1 tab Q6H PRN ORAL For Pain 08/29/18 23:30 09/05/18 23:29 Aspirin (ASA) 81 mg DAILY GT 08/23/18 09:00 09/22/18 08:59 09/05/18 08:09 Dextrose (Dextrose 50%) 25 ml Q30M PRN IV Hypoglycemia 08/21/18 20:00 09/20/18 19:59 Dextrose (Dextrose 50%) 50 ml Q30M PRN IV Hypoglycemia 08/21/18 20:00 09/20/18 19:59 Ertapenem 1 gm/ Sodium Chloride 55 ml @ 110 mls/hr Q24H IVPB 09/03/18 12:00 09/08/18 11:59 09/05/18 12:12 Heparin Sodium (Porcine) (Heparin 5000 units/ml) 5,000 units EVERY 12 HOURS SUBQ 08/21/18 21:00 09/20/18 20:59 09/05/18 08:10 Insulin Aspart (NovoLOG) EVERY 6 HOURS SUBQ 08/23/18 12:00 09/22/18 11:59 09/05/18 06:06 Lansoprazole (Prevacid) 30 mg DAILY GT 08/25/18 09:00 09/24/18 08:59 09/05/18 08:09 Levetiracetam (Keppra) 750 mg Q12HR GT 09/04/18 09:00 10/04/18 08:59 09/05/18 08:09 Levothyroxine Sodium (Synthroid) 125 mcg DAILY@0630 ORAL 08/24/18 06:30 09/23/18 06:29 09/05/18 06:03 Morphine Sulfate (Morphine Sulfate) 1 mg Q4H PRN IVP Moderate Pain(4-6) 08/29/18 20:54 09/05/18 20:53 Height (Feet): 5 Height (Inches): 5.00 Weight (Pounds): 125 Objective exam stable, urine clearing ALEJANDRO COLLIER Sep 05, 2018 12:36
--- NOTE | 2018-09-05 12:56 | General Progress Note ---
Assessment/Plan Problem List: (1) UTI (urinary tract infection) ICD Codes: N39.0 - Urinary tract infection, site not specified SNOMED: 88269212 Qualifiers: Qualified Codes: T83.511A - Infection and inflammatory reaction due to indwelling urethral catheter, initial encounter; N39.0 - Urinary tract infection , site not specified (2) Severe sepsis ICD Codes: A41.9 - Sepsis, unspecified organism; R65.20 - Severe sepsis without septic shock SNOMED: 47917660 (3) NSTEMI (non-ST elevated myocardial infarction) ICD Codes: I21.4 - Non-ST elevation (NSTEMI) myocardial infarction SNOMED: 814492313 (4) Right lower lobe pneumonia ICD Codes: J18.1 - Lobar pneumonia, unspecified organism SNOMED: 149090348 Qualifiers: Qualified Codes: J18.1 - Lobar pneumonia, unspecified organism (5) Elevated lactic acid level ICD Codes: R79.89 - Other specified abnormal findings of blood chemistry SNOMED: 4631977 Status: stable, progressing Assessment/Plan iv abx per id drain management per surgery off ivf bipap as needed pain rx as needed resp rx gt feeds dvt/stress ulcer prophlaxis skin care dc planning if ok with all. Subjective ROS Limited/Unobtainable: No Constitutional: Reports: malaise, weakness HEENT: Reports: no symptoms Cardiovascular: Reports: no symptoms Respiratory: Reports: no symptoms Gastrointestinal/Abdominal: Reports: no symptoms Genitourinary: Reports: no symptoms Neurologic/Psychiatric: Reports: no symptoms Endocrine: Reports: no symptoms Hematologic/Lymphatic: Reports: no symptoms Allergies: Coded Allergies: No Known Allergies (Unverified , 06/17/18) All Systems: reviewed and negative except above Subjective no events. no new complaints. no fevers. tolerating feeds. on iv abx still has drain. surgery and id noted. podiatry noted Objective Last 24 Hour Vital Signs Date Time Temp Pulse Resp B/P (MAP) Pulse Ox O2 Delivery O2 Flow Rate FiO2 09/05/18 09:00 Nasal Cannula 2.0 09/05/18 08:00 96.8 62 18 131/71 (91) 97 96.8 09/05/18 07:39 56 09/05/18 05:14 66 22 99 Facial 35 09/05/18 04:00 96.1 58 26 111/56 (74) 99 96.1 09/05/18 04:00 60 09/05/18 03:06 60 20 99 Facial 35 09/05/18 01:07 63 15 98 Facial 35 09/05/18 00:00 96.5 68 19 133/69 (90) 96 96.5 09/05/18 00:00 59 09/04/18 23:17 71 18 98 Facial 35 09/04/18 21:00 Nasal Cannula 2.0 09/04/18 20:00 69 09/04/18 20:00 97.1 70 21 134/68 (90) 95 97.1 09/04/18 19:43 Nasal Cannula 2.0 28 09/04/18 19:43 98 Nasal Cannula 2.0 28 09/04/18 16:00 98.2 65 21 131/71 (91) 95 98.2 09/04/18 15:51 83 Intake and Output 09/04/18 09/05/18 19:00 07:00 Intake Total 80 ml 320 ml Output Total 500 ml 800 ml Balance -420 ml -480 ml Intake Free Water 50 ml 50 ml Tube Feeding 30 ml 270 ml Output Urine Total 500 ml 800 ml Height (Feet): 5 Height (Inches): 5.00 Weight (Pounds): 125 Objective General Appearance: WD/WN, on bipap. opens eyes Neck: supple Cardiovascular: normal rate, regular rhythm Respiratory/Chest: chest wall non-tender, lungs with farhat rhonchi Abdomen: normal bowel sounds, non tender, soft, no organomegaly Neurologic: unresponsive, aphasia Michael Zuniga MD Sep 05, 2018 12:56
[2018-09-05 16:00] VITALS: BP 129/64
[2018-09-05 20:00] VITALS: BP 127/61
[2018-09-06] VITALS: BP 123/65
[2018-09-06] MEDS: NovoLOG Insulin Flexpen SUBQ SCH ×4 (00:33→18:02)
--- NOTE | 2018-09-06 03:00 | Progress Note ---
CARDIOLOGY PROGRESS NOTE DATE: 09/05/2018 SUBJECTIVE: No fevers. No new distress. Still with drain in the lower abdomen following surgical removal of abscess and peritoneal catheter. Remains on IV antibiotics. Foot care ongoing for cellulitis of the second right toe. Monitor remains sinus rhythm. Continued to have no signs of acute congestive heart failure presently. Hypertension better controlled. No new seizure activity. OBJECTIVE: VITAL SIGNS: Blood pressure 129/64, pulse 63, and respirations 24. Afebrile. LUNGS: Coarse breath sounds. Few rhonchi. HEART: Regular rhythm and rate. Normal S1, S2. ABDOMEN: Soft. Suprapubic catheter, G-tube catheter and Denny drain are noted. EXTREMITIES: Trace edema. DIAGNOSTIC DATA: Chest x-ray today is notable for right basilar infiltrate with improvement. No signs of pulmonary venous congestion. IMPRESSION: 1. Slow progress. 2. Remains stable from cardiovascular standpoint. PLAN: 1. Continue current cardiac therapy. 2. Recheck lab studies. 3. Remainder of medical therapy proceeding without change. Bryon Ramirez M.D. DR: ZABRINA JOB#: [id number] CC:
[2018-09-06 04:00] VITALS: BP 134/72
[2018-09-06] MEDS: Levothyroxine 125mcg tab ORAL SCH (06:04)
[2018-09-06 07:57] LABS: BASOPHILS % (AUTO) 1.4 % (0.0-2.0); EOSINOPHILS % (AUTO) 4.8 % (0.0-3.0); HEMATOCRIT 29.6 % (42.0-52.0); HEMOGLOBIN 9.5 G/DL (14.2-18.0); LYMPHOCYTES % (AUTO) 21.5 % (20.0-45.0); MEAN CORPUSCULAR VOLUME 94 FL (80-99); MONOCYTES % (AUTO) 9.7 % (1.0-10.0); NEUTROPHILS % (AUTO) 62.6 % (45.0-75.0); PLATELET COUNT 356 K/UL (150-450); RED BLOOD COUNT 3.14 M/UL (4.70-6.10); RED CELL DISTRIBUTION WIDTH 15.4 % (11.6-14.8); WHITE BLOOD COUNT 3.7 K/UL (4.8-10.8)
[2018-09-06 08:00] VITALS: BP 138/74
[2018-09-06 08:26] LABS: ALANINE AMINOTRANSFERASE < 6 U/L (12-78); ALBUMIN 1.6 G/DL (3.4-5.0); ALBUMIN/GLOBULIN RATIO 0.3 (1.0-2.7); ALKALINE PHOSPHATASE 80 U/L (46-116); ANION GAP 6 mmol/L (5-15); ASPARTATE AMINO TRANSFERASE 15 U/L (15-37); BILIRUBIN,TOTAL 0.1 MG/DL (0.2-1.0); BLOOD UREA NITROGEN 14 mg/dL (7-18); CARBON DIOXIDE 30 MMOL/L (21-32); CHLORIDE 99 MMOL/L (98-107); CREATININE 0.7 MG/DL (0.55-1.30); POTASSIUM 4.3 MMOL/L (3.5-5.1); SODIUM 135 MMOL/L (136-145)
[2018-09-06] MEDS: Aspirin Baby 81mg GT SCH (08:59)
[2018-09-06] MEDS: Heparin 5000 units/ml inj SUBQ SCH ×2 (09:00→20:46)
--- NOTE | 2018-09-06 09:07 | Urology Progress Note ---
Assessment/Plan Assessment/Plan 1. Urinary retention with chronic suprapubic tube. 2. Benign prostatic hypertrophy history. 3. Neurogenic bladder. 4. Urinary tract infection and colonization. 5. Hematuria. 6. Proteinuria. keep SP tube, last exchanged 08/23 hand irrigate PRN cont with abx as ordered cysto later consider recheck urine cx at some point Subjective Allergies: Coded Allergies: No Known Allergies (Unverified , 06/17/18) Subjective all noted, peritoneal cath removed 09/01 Objective Last 24 Hour Vital Signs Date Time Temp Pulse Resp B/P (MAP) Pulse Ox O2 Delivery O2 Flow Rate FiO2 09/06/18 08:00 97.0 57 20 138/74 (95) 98 97.0 09/06/18 06:56 98 Nasal Cannula 2.0 28 09/06/18 06:56 68 18 Nasal Cannula 2.0 28 09/06/18 06:56 Nasal Cannula 2.0 28 09/06/18 05:43 55 26 92 Full Face 35 09/06/18 04:00 97.5 58 17 134/72 (92) 98 97.5 09/06/18 04:00 60 09/06/18 03:42 56 20 98 Facial 35 09/06/18 01:33 54 19 100 Facial 35 09/06/18 00:00 53 09/06/18 00:00 98.1 53 18 123/65 (84) 98 98.1 09/05/18 23:23 56 21 98 Facial 35 09/05/18 22:08 65 21 98 Facial 35 09/05/18 21:00 Nasal Cannula 2.0 09/05/18 20:55 98 Nasal Cannula 2.0 28 09/05/18 20:55 61 18 Nasal Cannula 2.0 28 09/05/18 20:55 Nasal Cannula 2.0 28 09/05/18 20:00 97.9 63 17 127/61 (83) 96 97.9 09/05/18 20:00 61 09/05/18 16:00 97.3 63 24 129/64 (85) 98 97.3 09/05/18 15:12 61 09/05/18 12:00 97.0 71 28 127/67 (87) 92 97.0 09/05/18 11:34 66 Intake and Output 09/05/18 09/06/18 19:00 07:00 Intake Total 270 ml 400 ml Output Total 400 ml 800 ml Balance -130 ml -400 ml Intake Free Water 100 ml Tube Feeding 270 ml 300 ml Output Urine Total 400 ml 800 ml Microbiology Date/Time Source Procedure Growth Status 08/21/18 15:15 Blood Blood Culture - Final NO GROWTH AFTER 5 DAYS Complete 08/23/18 18:45 Wound Gram Stain - Final Complete 08/23/18 18:45 Wound Culture - Final Staphylococcus Aureus - Mrsa Complete 08/23/18 11:30 Sputum Gram Stain - Final Complete 08/23/18 11:30 Sputum Sputum Culture - Final NORMAL UPPER RESPIRATORY KRISSY PRESENT Complete 08/25/18 17:00 Stool Clostridium difficile Toxin Assay - Final Complete 08/21/18 15:15 Urine,Clean Catch Urine Culture - Final Providencia Stuartii Complete 09/01/18 15:56 Abdominal Abscess Gram Stain - Final Complete 09/01/18 15:56 Aerobic Culture - Final Escherichia Coli - Esbl Providencia Stuartii Usual Skin Krissy Complete 09/01/18 15:56 Abdominal Abscess Anaerobic Culture - Final NO ANAEROBES ISOLATED Complete Current Medications Medications (Trade) Dose Ordered Sig/Benjamin Route PRN Reason Start Time Stop Time Status Last Admin Dose Admin Acetaminophen (Tylenol) 650 mg Q4H PRN ORAL Mild Pain/Temp > 100.5 08/28/18 09:00 09/27/18 08:59 08/28/18 10:16 Aspirin (ASA) 81 mg DAILY GT 08/23/18 09:00 09/22/18 08:59 09/06/18 08:59 Dextrose (Dextrose 50%) 25 ml Q30M PRN IV Hypoglycemia 08/21/18 20:00 09/20/18 19:59 Dextrose (Dextrose 50%) 50 ml Q30M PRN IV Hypoglycemia 08/21/18 20:00 09/20/18 19:59 Ertapenem 1 gm/ Sodium Chloride 55 ml @ 110 mls/hr Q24H IVPB 09/03/18 12:00 09/08/18 11:59 09/05/18 12:12 Heparin Sodium (Porcine) (Heparin 5000 units/ml) 5,000 units EVERY 12 HOURS SUBQ 08/21/18 21:00 09/20/18 20:59 09/06/18 09:00 Insulin Aspart (NovoLOG) EVERY 6 HOURS SUBQ 08/23/18 12:00 09/22/18 11:59 09/06/18 06:05 Lansoprazole (Prevacid) 30 mg DAILY GT 08/25/18 09:00 09/24/18 08:59 09/06/18 08:59 Levetiracetam (Keppra) 750 mg Q12HR GT 09/04/18 09:00 10/04/18 08:59 09/06/18 08:59 Levothyroxine Sodium (Synthroid) 125 mcg DAILY@0630 ORAL 08/24/18 06:30 09/23/18 06:29 09/06/18 06:04 Laboratory Tests 09/06/18 06:15: White Blood Count 3.7L, Red Blood Count 3.14L, Hemoglobin 9.5L, Hematocrit 29.6L , Mean Corpuscular Volume 94, Mean Corpuscular Hemoglobin 30.2, Mean Corpuscular Hemoglobin Concent 32.1, Red Cell Distribution Width 15.4H, Platelet Count 356, Mean Platelet Volume 5.1L, Neutrophils (%) (Auto) 62.6, Lymphocytes (%) (Auto) 21.5, Monocytes (%) (Auto) 9.7, Eosinophils (%) (Auto) 4.8H, Basophils (%) (Auto) 1.4, Sodium Level 135L, Potassium Level 4.3, Chloride Level 99, Carbon Dioxide Level 30, Anion Gap 6, Blood Urea Nitrogen 14 , Creatinine 0.7, Estimat Glomerular Filtration Rate , Glucose Level 146H, Calcium Level 9.0, Magnesium Level 2.0, Total Bilirubin 0.1L, Aspartate Amino Transf (AST/SGOT) 15, Alanine Aminotransferase (ALT/SGPT) < 6L, Alkaline Phosphatase 80, Total Protein 7.1, Albumin 1.6L, Globulin 5.5, Albumin/Globulin Ratio 0.3L Height (Feet): 5 Height (Inches): 5.00 Weight (Pounds): 125 Objective exam stable, urine clearing ALEJANDRO COLLIER Sep 06, 2018 09:07
--- NOTE | 2018-09-06 09:14 | General Progress Note ---
Assessment/Plan Problem List: (1) UTI (urinary tract infection) ICD Codes: N39.0 - Urinary tract infection, site not specified SNOMED: 69831532 Qualifiers: Qualified Codes: T83.511A - Infection and inflammatory reaction due to indwelling urethral catheter, initial encounter; N39.0 - Urinary tract infection , site not specified (2) Severe sepsis ICD Codes: A41.9 - Sepsis, unspecified organism; R65.20 - Severe sepsis without septic shock SNOMED: 21244966 (3) NSTEMI (non-ST elevated myocardial infarction) ICD Codes: I21.4 - Non-ST elevation (NSTEMI) myocardial infarction SNOMED: 636721714 (4) Right lower lobe pneumonia ICD Codes: J18.1 - Lobar pneumonia, unspecified organism SNOMED: 981271252 Qualifiers: Qualified Codes: J18.1 - Lobar pneumonia, unspecified organism (5) Elevated lactic acid level ICD Codes: R79.89 - Other specified abnormal findings of blood chemistry SNOMED: 5948647 Status: stable, progressing Assessment/Plan iv abx per id drain management per surgery off ivf bipap as needed and at night pain rx as needed resp rx gt feeds dvt/stress ulcer prophlaxis skin care dc planning if ok with all. Subjective ROS Limited/Unobtainable: Yes Constitutional: Reports: malaise, weakness HEENT: Reports: no symptoms Cardiovascular: Reports: no symptoms Respiratory: Reports: no symptoms Gastrointestinal/Abdominal: Reports: abdominal pain Genitourinary: Reports: no symptoms Neurologic/Psychiatric: Reports: pre-existing deficit Endocrine: Reports: no symptoms Hematologic/Lymphatic: Reports: anemia Allergies: Coded Allergies: No Known Allergies (Unverified , 06/17/18) All Systems: reviewed and negative except above Subjective no events. no new complaints. no fevers. tolerating feeds. on iv abx still has drain. surgery and id noted. podiatry noted labs reviewed. remains on noctural bipap Objective Last 24 Hour Vital Signs Date Time Temp Pulse Resp B/P (MAP) Pulse Ox O2 Delivery O2 Flow Rate FiO2 09/06/18 08:00 97.0 57 20 138/74 (95) 98 97.0 09/06/18 06:56 98 Nasal Cannula 2.0 28 09/06/18 06:56 68 18 Nasal Cannula 2.0 28 09/06/18 06:56 Nasal Cannula 2.0 28 09/06/18 05:43 55 26 92 Full Face 35 09/06/18 04:00 97.5 58 17 134/72 (92) 98 97.5 09/06/18 04:00 60 09/06/18 03:42 56 20 98 Facial 35 09/06/18 01:33 54 19 100 Facial 35 09/06/18 00:00 53 09/06/18 00:00 98.1 53 18 123/65 (84) 98 98.1 09/05/18 23:23 56 21 98 Facial 35 09/05/18 22:08 65 21 98 Facial 35 09/05/18 21:00 Nasal Cannula 2.0 09/05/18 20:55 98 Nasal Cannula 2.0 28 09/05/18 20:55 61 18 Nasal Cannula 2.0 28 09/05/18 20:55 Nasal Cannula 2.0 28 09/05/18 20:00 97.9 63 17 127/61 (83) 96 97.9 09/05/18 20:00 61 09/05/18 16:00 97.3 63 24 129/64 (85) 98 97.3 09/05/18 15:12 61 09/05/18 12:00 97.0 71 28 127/67 (87) 92 97.0 09/05/18 11:34 66 Intake and Output 09/05/18 09/06/18 19:00 07:00 Intake Total 270 ml 400 ml Output Total 400 ml 800 ml Balance -130 ml -400 ml Intake Free Water 100 ml Tube Feeding 270 ml 300 ml Output Urine Total 400 ml 800 ml Laboratory Tests 09/06/18 06:15: White Blood Count 3.7L, Red Blood Count 3.14L, Hemoglobin 9.5L, Hematocrit 29.6L , Mean Corpuscular Volume 94, Mean Corpuscular Hemoglobin 30.2, Mean Corpuscular Hemoglobin Concent 32.1, Red Cell Distribution Width 15.4H, Platelet Count 356, Mean Platelet Volume 5.1L, Neutrophils (%) (Auto) 62.6, Lymphocytes (%) (Auto) 21.5, Monocytes (%) (Auto) 9.7, Eosinophils (%) (Auto) 4.8H, Basophils (%) (Auto) 1.4, Sodium Level 135L, Potassium Level 4.3, Chloride Level 99, Carbon Dioxide Level 30, Anion Gap 6, Blood Urea Nitrogen 14 , Creatinine 0.7, Estimat Glomerular Filtration Rate , Glucose Level 146H, Calcium Level 9.0, Magnesium Level 2.0, Total Bilirubin 0.1L, Aspartate Amino Transf (AST/SGOT) 15, Alanine Aminotransferase (ALT/SGPT) < 6L, Alkaline Phosphatase 80, Total Protein 7.1, Albumin 1.6L, Globulin 5.5, Albumin/Globulin Ratio 0.3L Height (Feet): 5 Height (Inches): 5.00 Weight (Pounds): 125 Objective General Appearance: WD/WN, on bipap. opens eyes Neck: supple Cardiovascular: normal rate, regular rhythm Respiratory/Chest: chest wall non-tender, lungs with farhat rhonchi Abdomen: normal bowel sounds, non tender, soft, no organomegaly Neurologic: unresponsive, aphasia Michael Zuniga MD Sep 06, 2018 09:14
--- NOTE | 2018-09-06 10:52 | Infectious Diseases Prog Note ---
Assessment/Plan Assessment/Plan antibiotics : ertapenem A 1. peritoneal abscess s/p evacuation with providencia, e.coli 2. s/p removal of broken peritoneal catheter 3. leucocytosis resolved 4. diabetes mellitus 5. hypertension 6. dementia p 1. continue ertapenem 6 more days 2. will follow up cultures Subjective ROS Limited/Unobtainable: Yes Allergies: Coded Allergies: No Known Allergies (Unverified , 06/17/18) Objective Vital Signs Last 24 Hour Vital Signs Date Time Temp Pulse Resp B/P (MAP) Pulse Ox O2 Delivery O2 Flow Rate FiO2 09/06/18 09:00 Nasal Cannula 2.0 09/06/18 08:00 97.0 57 20 138/74 (95) 98 97.0 09/06/18 07:41 56 09/06/18 06:56 98 Nasal Cannula 2.0 28 09/06/18 06:56 68 18 Nasal Cannula 2.0 28 09/06/18 06:56 Nasal Cannula 2.0 28 09/06/18 05:43 55 26 92 Full Face 35 09/06/18 04:00 97.5 58 17 134/72 (92) 98 97.5 09/06/18 04:00 60 09/06/18 03:42 56 20 98 Facial 35 09/06/18 01:33 54 19 100 Facial 35 09/06/18 00:00 53 09/06/18 00:00 98.1 53 18 123/65 (84) 98 98.1 09/05/18 23:23 56 21 98 Facial 35 09/05/18 22:08 65 21 98 Facial 35 09/05/18 21:00 Nasal Cannula 2.0 09/05/18 20:55 98 Nasal Cannula 2.0 28 09/05/18 20:55 61 18 Nasal Cannula 2.0 28 09/05/18 20:55 Nasal Cannula 2.0 28 09/05/18 20:00 97.9 63 17 127/61 (83) 96 97.9 09/05/18 20:00 61 09/05/18 16:00 97.3 63 24 129/64 (85) 98 97.3 09/05/18 15:12 61 09/05/18 12:00 97.0 71 28 127/67 (87) 92 97.0 09/05/18 11:34 66 Height (Feet): 5 Height (Inches): 5.00 Weight (Pounds): 125 Respiratory/Chest: lungs clear Cardiovascular: normal rate, regular rhythm, no gallop/murmur Abdomen: soft, non tender, other - GT Extremities: no edema Laboratory Tests Test 09/06/18 06:15 White Blood Count 3.7 K/UL (4.8-10.8) L Red Blood Count 3.14 M/UL (4.70-6.10) L Hemoglobin 9.5 G/DL (14.2-18.0) L Hematocrit 29.6 % (42.0-52.0) L Mean Corpuscular Volume 94 FL (80-99) Mean Corpuscular Hemoglobin 30.2 PG (27.0-31.0) Mean Corpuscular Hemoglobin Concent 32.1 G/DL (32.0-36.0) Red Cell Distribution Width 15.4 % (11.6-14.8) H Platelet Count 356 K/UL (150-450) Mean Platelet Volume 5.1 FL (6.5-10.1) L Neutrophils (%) (Auto) 62.6 % (45.0-75.0) Lymphocytes (%) (Auto) 21.5 % (20.0-45.0) Monocytes (%) (Auto) 9.7 % (1.0-10.0) Eosinophils (%) (Auto) 4.8 % (0.0-3.0) H Basophils (%) (Auto) 1.4 % (0.0-2.0) Sodium Level 135 MMOL/L (136-145) L Potassium Level 4.3 MMOL/L (3.5-5.1) Chloride Level 99 MMOL/L (98-107) Carbon Dioxide Level 30 MMOL/L (21-32) Anion Gap 6 mmol/L (5-15) Blood Urea Nitrogen 14 mg/dL (7-18) Creatinine 0.7 MG/DL (0.55-1.30) Estimat Glomerular Filtration Rate mL/min (>60) Glucose Level 146 MG/DL (74-106) H Calcium Level 9.0 MG/DL (8.5-10.1) Magnesium Level 2.0 MG/DL (1.8-2.4) Total Bilirubin 0.1 MG/DL (0.2-1.0) L Aspartate Amino Transf (AST/SGOT) 15 U/L (15-37) Alanine Aminotransferase (ALT/SGPT) < 6 U/L (12-78) L Alkaline Phosphatase 80 U/L (46-116) Total Protein 7.1 G/DL (6.4-8.2) Albumin 1.6 G/DL (3.4-5.0) L Globulin 5.5 g/dL Albumin/Globulin Ratio 0.3 (1.0-2.7) L Current Medications Medications (Trade) Dose Ordered Sig/Benjamin Route PRN Reason Start Time Stop Time Status Last Admin Dose Admin Acetaminophen (Tylenol) 650 mg Q4H PRN ORAL Mild Pain/Temp > 100.5 08/28/18 09:00 09/27/18 08:59 08/28/18 10:16 Aspirin (ASA) 81 mg DAILY GT 08/23/18 09:00 09/22/18 08:59 09/06/18 08:59 Dextrose (Dextrose 50%) 25 ml Q30M PRN IV Hypoglycemia 08/21/18 20:00 09/20/18 19:59 Dextrose (Dextrose 50%) 50 ml Q30M PRN IV Hypoglycemia 08/21/18 20:00 09/20/18 19:59 Ertapenem 1 gm/ Sodium Chloride 55 ml @ 110 mls/hr Q24H IVPB 09/03/18 12:00 09/08/18 11:59 09/05/18 12:12 Heparin Sodium (Porcine) (Heparin 5000 units/ml) 5,000 units EVERY 12 HOURS SUBQ 08/21/18 21:00 09/20/18 20:59 09/06/18 09:00 Insulin Aspart (NovoLOG) EVERY 6 HOURS SUBQ 08/23/18 12:00 09/22/18 11:59 09/06/18 06:05 Lansoprazole (Prevacid) 30 mg DAILY GT 08/25/18 09:00 09/24/18 08:59 09/06/18 08:59 Levetiracetam (Keppra) 750 mg Q12HR GT 09/04/18 09:00 10/04/18 08:59 09/06/18 08:59 Levothyroxine Sodium (Synthroid) 125 mcg DAILY@0630 ORAL 08/24/18 06:30 09/23/18 06:29 09/06/18 06:04 Barbra Oshea MD Sep 06, 2018 10:52
[2018-09-06 12:00] VITALS: BP 129/69
[2018-09-06] MEDS: Ertapenem 1 GM in NS 55 ML IVPB SCH (12:36)
--- NOTE | 2018-09-06 13:26 | General Progress Note ---
Progress Note Progress Note Surgery: no acute events. doing well. family at bedside. wound c/d/i. luis drainage decreasing plan to d/c luis tomorrow if still in hospital thank you Ezequiel Hayes Sep 06, 2018 13:26
--- NOTE | 2018-09-06 15:02 | Pulmonology Progress Note ---
Assessment/Plan Assessment/Plan IMPRESSION: 1. Respiratory failure, resolved 2. Sepsis with shock. improved 3. Dysphagia. 4. G-tube. 5. CVA. 6. Altered mental status. 7. Aspiration pneumonia 8. Severe protein-calorie malnutrition. 9. Diabetes. PLAN respiratory care as is aspiration precautions noted antibiotics noted and cultures reviewed imaging noted; repeat noted and will order for this week close follow up for change DVT prophylaxis dc planning in progress impression, plan, and exam edited and reviewed in detail care discussed with RN Subjective Allergies: Coded Allergies: No Known Allergies (Unverified , 06/17/18) Subjective reviewed care care noted confused at baseline on antibiotics Objective Last 24 Hour Vital Signs Date Time Temp Pulse Resp B/P (MAP) Pulse Ox O2 Delivery O2 Flow Rate FiO2 09/06/18 12:00 97.3 63 20 129/69 (89) 99 97.3 09/06/18 09:00 Nasal Cannula 2.0 09/06/18 08:00 97.0 57 20 138/74 (95) 98 97.0 09/06/18 07:41 56 09/06/18 06:56 98 Nasal Cannula 2.0 28 09/06/18 06:56 68 18 Nasal Cannula 2.0 28 09/06/18 06:56 Nasal Cannula 2.0 28 09/06/18 05:43 55 26 92 Full Face 35 09/06/18 04:00 97.5 58 17 134/72 (92) 98 97.5 09/06/18 04:00 60 09/06/18 03:42 56 20 98 Facial 35 09/06/18 01:33 54 19 100 Facial 35 09/06/18 00:00 53 09/06/18 00:00 98.1 53 18 123/65 (84) 98 98.1 09/05/18 23:23 56 21 98 Facial 35 09/05/18 22:08 65 21 98 Facial 35 09/05/18 21:00 Nasal Cannula 2.0 09/05/18 20:55 98 Nasal Cannula 2.0 28 09/05/18 20:55 61 18 Nasal Cannula 2.0 28 09/05/18 20:55 Nasal Cannula 2.0 28 09/05/18 20:00 97.9 63 17 127/61 (83) 96 97.9 09/05/18 20:00 61 09/05/18 16:00 97.3 63 24 129/64 (85) 98 97.3 09/05/18 15:12 61 Intake and Output 09/05/18 09/06/18 19:00 07:00 Intake Total 270 ml 400 ml Output Total 400 ml 800 ml Balance -130 ml -400 ml Intake Free Water 100 ml Tube Feeding 270 ml 300 ml Output Urine Total 400 ml 800 ml Objective GENERAL: Ill-appearing male, withdrawn, nonverbal. ALOC LUNGS: occasional rhonchi, moderate air entry, symmetric. CARDIAC: Normal S1, S2. RRR without murmurs, rubs, or gallops. ABDOMEN: Soft, nontender, nondistended. no distention; no HSM EXTREMITIES: No cyanosis or clubbing. no edema SKIN: noted GENITOURINARY: suprapubic catheter. NEUROLOGIC: Neurologically overall same nonverbal at present reviewed and edited Laboratory Tests 09/06/18 06:15: White Blood Count 3.7L, Red Blood Count 3.14L, Hemoglobin 9.5L, Hematocrit 29.6L , Mean Corpuscular Volume 94, Mean Corpuscular Hemoglobin 30.2, Mean Corpuscular Hemoglobin Concent 32.1, Red Cell Distribution Width 15.4H, Platelet Count 356, Mean Platelet Volume 5.1L, Neutrophils (%) (Auto) 62.6, Lymphocytes (%) (Auto) 21.5, Monocytes (%) (Auto) 9.7, Eosinophils (%) (Auto) 4.8H, Basophils (%) (Auto) 1.4, Sodium Level 135L, Potassium Level 4.3, Chloride Level 99, Carbon Dioxide Level 30, Anion Gap 6, Blood Urea Nitrogen 14 , Creatinine 0.7, Estimat Glomerular Filtration Rate , Glucose Level 146H, Calcium Level 9.0, Magnesium Level 2.0, Total Bilirubin 0.1L, Aspartate Amino Transf (AST/SGOT) 15, Alanine Aminotransferase (ALT/SGPT) < 6L, Alkaline Phosphatase 80, Total Protein 7.1, Albumin 1.6L, Globulin 5.5, Albumin/Globulin Ratio 0.3L Current Medications Medications (Trade) Dose Ordered Sig/Benjamin Route PRN Reason Start Time Stop Time Status Last Admin Dose Admin Acetaminophen (Tylenol) 650 mg Q4H PRN ORAL Mild Pain/Temp > 100.5 08/28/18 09:00 09/27/18 08:59 08/28/18 10:16 Aspirin (ASA) 81 mg DAILY GT 08/23/18 09:00 09/22/18 08:59 09/06/18 08:59 Dextrose (Dextrose 50%) 25 ml Q30M PRN IV Hypoglycemia 08/21/18 20:00 09/20/18 19:59 Dextrose (Dextrose 50%) 50 ml Q30M PRN IV Hypoglycemia 08/21/18 20:00 09/20/18 19:59 Ertapenem 1 gm/ Sodium Chloride 55 ml @ 110 mls/hr Q24H IVPB 09/06/18 12:00 09/11/18 11:59 09/06/18 12:36 Heparin Sodium (Porcine) (Heparin 5000 units/ml) 5,000 units EVERY 12 HOURS SUBQ 08/21/18 21:00 09/20/18 20:59 09/06/18 09:00 Insulin Aspart (NovoLOG) EVERY 6 HOURS SUBQ 08/23/18 12:00 09/22/18 11:59 09/06/18 12:37 Lansoprazole (Prevacid) 30 mg DAILY GT 08/25/18 09:00 09/24/18 08:59 09/06/18 08:59 Levetiracetam (Keppra) 750 mg Q12HR GT 09/04/18 09:00 10/04/18 08:59 09/06/18 08:59 Levothyroxine Sodium (Synthroid) 125 mcg DAILY@0630 ORAL 08/24/18 06:30 09/23/18 06:29 09/06/18 06:04 James Langston MD Sep 06, 2018 15:02
[2018-09-06 16:00] VITALS: BP 139/67
[2018-09-06 20:00] VITALS: BP 140/65
[2018-09-07] VITALS: BP 133/65
[2018-09-07] MEDS: NovoLOG Insulin Flexpen SUBQ SCH ×5 (00:02→23:49)
--- NOTE | 2018-09-07 00:45 | Progress Note ---
DATE: 09/06/2018 CARDIOLOGY PROGRESS NOTE SUBJECTIVE: The patient remains on feedings. Drain remains in place post surgery as well as suprapubic catheter and G-tube in the abdomen. PHYSICAL EXAMINATION: VITAL SIGNS: Stable. Blood pressure 138/74, pulse 57, respiratory rate 20. Monitor sinus and sinus bradycardia. No pauses. LUNGS: Good breath sounds. No wheezing. HEART: Regular rhythm rate. Normal S1, S2. ABDOMEN: Soft. Drain is noted. EXTREMITIES: No edema. LABORATORY AND DIAGNOSTIC DATA: White count 3.7, hemoglobin 9.5. Potassium 4.3 and albumin 1.6. IMPRESSION: 1. Status post myocardial infarction. 2. Acute sepsis with shock recovered. 3. Status post removal of infected catheter. 4. Seizure disorder. 5. Status post breakthrough seizure now stable. 6. Asymptomatic sinus bradycardia. 7. Acute on chronic diastolic congestive heart failure, clinically compensated. PLAN: 1. Antimicrobials. 2. Wound care. 3. Removal of drain per surgeon. 4. Thyroid replacement. 5. Periodic evaluation of TSH. 6. No indication for pacing, stable from cardiovascular status for subacute care. Bryon Ramirez M.D. DR: Em JOB#: [id number] CC:
[2018-09-07 04:00] VITALS: BP 158/70
[2018-09-07] MEDS: Levothyroxine 125mcg tab ORAL SCH (06:43)
[2018-09-07 07:49] VITALS: BP 136/64
[2018-09-07] MEDS: Aspirin Baby 81mg GT SCH (08:14)
[2018-09-07] MEDS: Heparin 5000 units/ml inj SUBQ SCH ×2 (08:15→21:51)
--- NOTE | 2018-09-07 08:42 | General Progress Note ---
Assessment/Plan Problem List: (1) UTI (urinary tract infection) ICD Codes: N39.0 - Urinary tract infection, site not specified SNOMED: 22753436 Qualifiers: Qualified Codes: T83.511A - Infection and inflammatory reaction due to indwelling urethral catheter, initial encounter; N39.0 - Urinary tract infection , site not specified (2) Severe sepsis ICD Codes: A41.9 - Sepsis, unspecified organism; R65.20 - Severe sepsis without septic shock SNOMED: 35497666 (3) NSTEMI (non-ST elevated myocardial infarction) ICD Codes: I21.4 - Non-ST elevation (NSTEMI) myocardial infarction SNOMED: 477919965 (4) Right lower lobe pneumonia ICD Codes: J18.1 - Lobar pneumonia, unspecified organism SNOMED: 516649807 Qualifiers: Qualified Codes: J18.1 - Lobar pneumonia, unspecified organism (5) Elevated lactic acid level ICD Codes: R79.89 - Other specified abnormal findings of blood chemistry SNOMED: 3780582 Status: stable, progressing Assessment/Plan iv abx per id drain management per surgery off ivf bipap as needed and at night pain rx as needed resp rx gt feeds dvt/stress ulcer prophlaxis skin care dc planning wednesday ? Subjective ROS Limited/Unobtainable: No Constitutional: Reports: malaise, weakness HEENT: Reports: no symptoms Cardiovascular: Reports: no symptoms Respiratory: Reports: no symptoms Gastrointestinal/Abdominal: Reports: no symptoms Genitourinary: Reports: no symptoms Neurologic/Psychiatric: Reports: pre-existing deficit Endocrine: Reports: no symptoms Hematologic/Lymphatic: Reports: no symptoms Allergies: Coded Allergies: No Known Allergies (Unverified , 06/17/18) All Systems: reviewed and negative except above Subjective no events. no new complaints. no fevers. tolerating feeds. on iv abx still has drain. per surgery RABIA may be removed in the next few days labs reviewed. remains on noctural bipap Objective Last 24 Hour Vital Signs Date Time Temp Pulse Resp B/P (MAP) Pulse Ox O2 Delivery O2 Flow Rate FiO2 09/07/18 08:28 Nasal Cannula 2.0 09/07/18 07:49 98.2 57 16 136/64 (88) 100 98.2 09/07/18 05:43 58 18 94 Full Face 35 09/07/18 04:00 55 10/17/18 04:00 98.2 53 16 158/70 (99) 100 98.2 09/07/18 02:18 60 15 95 Full Face 35 09/07/18 01:40 62 21 94 Full Face 35 09/07/18 00:00 55 09/07/18 00:00 97.9 54 24 133/65 (87) 99 97.9 09/06/18 22:30 58 22 93 Facial 35 09/06/18 21:00 Nasal Cannula 2.0 09/06/18 20:00 57 09/06/18 20:00 97.6 55 20 140/65 (90) 100 97.6 09/06/18 19:30 93 Nasal Cannula 2.0 28 09/06/18 19:30 64 18 Nasal Cannula 2.0 28 09/06/18 19:30 Nasal Cannula 2.0 28 09/06/18 16:00 96.7 63 20 139/67 (91) 95 96.7 09/06/18 15:40 58 09/06/18 12:00 97.3 63 20 129/69 (89) 99 97.3 09/06/18 11:40 61 09/06/18 09:00 Nasal Cannula 2.0 Intake and Output 09/06/18 09/07/18 19:00 07:00 Intake Total 400 ml 620 ml Output Total 300 ml Balance 100 ml 620 ml Intake Free Water 100 ml Tube Feeding 400 ml 520 ml Output Urine Total 300 ml Height (Feet): 5 Height (Inches): 5.00 Weight (Pounds): 128 Objective General Appearance: WD/WN, on bipap. opens eyes Neck: supple Cardiovascular: normal rate, regular rhythm Respiratory/Chest: chest wall non-tender, lungs with farhat rhonchi Abdomen: normal bowel sounds, non tender, soft, no organomegaly Neurologic: unresponsive, aphasia Michael Zuniga MD Sep 07, 2018 08:42
--- NOTE | 2018-09-07 09:03 | Urology Progress Note ---
Assessment/Plan Assessment/Plan 1. Urinary retention with chronic suprapubic tube. 2. Benign prostatic hypertrophy history. 3. Neurogenic bladder. 4. Urinary tract infection and colonization. 5. Hematuria. 6. Proteinuria. keep SP tube, last exchanged 08/23 hand irrigated and do PRN cont with abx as ordered cysto later consider recheck urine cx at some point Subjective Allergies: Coded Allergies: No Known Allergies (Unverified , 06/17/18) Subjective all noted, peritoneal cath removed 09/01 Objective Last 24 Hour Vital Signs Date Time Temp Pulse Resp B/P (MAP) Pulse Ox O2 Delivery O2 Flow Rate FiO2 09/07/18 08:28 Nasal Cannula 2.0 09/07/18 07:49 98.2 57 16 136/64 (88) 100 98.2 09/07/18 05:43 58 18 94 Full Face 35 09/07/18 04:00 55 09/07/18 04:00 98.2 53 16 158/70 (99) 100 98.2 09/07/18 02:18 60 15 95 Full Face 35 09/07/18 01:40 62 21 94 Full Face 35 09/07/18 00:00 55 09/07/18 00:00 97.9 54 24 133/65 (87) 99 97.9 09/06/18 22:30 58 22 93 Facial 35 09/06/18 21:00 Nasal Cannula 2.0 09/06/18 20:00 57 09/06/18 20:00 97.6 55 20 140/65 (90) 100 97.6 09/06/18 19:30 93 Nasal Cannula 2.0 28 09/06/18 19:30 64 18 Nasal Cannula 2.0 28 09/06/18 19:30 Nasal Cannula 2.0 28 09/06/18 16:00 96.7 63 20 139/67 (91) 95 96.7 09/06/18 15:40 58 09/06/18 12:00 97.3 63 20 129/69 (89) 99 97.3 09/06/18 11:40 61 Intake and Output 09/06/18 09/07/18 19:00 07:00 Intake Total 400 ml 620 ml Output Total 300 ml Balance 100 ml 620 ml Intake Free Water 100 ml Tube Feeding 400 ml 520 ml Output Urine Total 300 ml Microbiology Date/Time Source Procedure Growth Status 08/21/18 15:15 Blood Blood Culture - Final NO GROWTH AFTER 5 DAYS Complete 08/23/18 18:45 Wound Gram Stain - Final Complete 08/23/18 18:45 Wound Culture - Final Staphylococcus Aureus - Mrsa Complete 08/23/18 11:30 Sputum Gram Stain - Final Complete 08/23/18 11:30 Sputum Sputum Culture - Final NORMAL UPPER RESPIRATORY KRISSY PRESENT Complete 08/25/18 17:00 Stool Clostridium difficile Toxin Assay - Final Complete 08/21/18 15:15 Urine,Clean Catch Urine Culture - Final Providencia Stuartii Complete 09/01/18 15:56 Abdominal Abscess Gram Stain - Final Complete 09/01/18 15:56 Aerobic Culture - Final Escherichia Coli - Esbl Providencia Stuartii Usual Skin Krissy Complete 09/01/18 15:56 Abdominal Abscess Anaerobic Culture - Final NO ANAEROBES ISOLATED Complete Current Medications Medications (Trade) Dose Ordered Sig/Benjamin Route PRN Reason Start Time Stop Time Status Last Admin Dose Admin Acetaminophen (Tylenol) 650 mg Q4H PRN ORAL Mild Pain/Temp > 100.5 08/28/18 09:00 09/27/18 08:59 08/28/18 10:16 Aspirin (ASA) 81 mg DAILY GT 08/23/18 09:00 09/22/18 08:59 09/07/18 08:14 Dextrose (Dextrose 50%) 25 ml Q30M PRN IV Hypoglycemia 08/21/18 20:00 09/20/18 19:59 Dextrose (Dextrose 50%) 50 ml Q30M PRN IV Hypoglycemia 08/21/18 20:00 09/20/18 19:59 Ertapenem 1 gm/ Sodium Chloride 55 ml @ 110 mls/hr Q24H IVPB 09/06/18 12:00 09/11/18 11:59 09/06/18 12:36 Heparin Sodium (Porcine) (Heparin 5000 units/ml) 5,000 units EVERY 12 HOURS SUBQ 08/21/18 21:00 09/20/18 20:59 09/07/18 08:15 Insulin Aspart (NovoLOG) EVERY 6 HOURS SUBQ 08/23/18 12:00 09/22/18 11:59 09/07/18 05:40 Lansoprazole (Prevacid) 30 mg DAILY GT 08/25/18 09:00 09/24/18 08:59 09/07/18 08:14 Levetiracetam (Keppra) 750 mg Q12HR GT 09/04/18 09:00 10/04/18 08:59 09/07/18 08:14 Levothyroxine Sodium (Synthroid) 125 mcg DAILY@0630 ORAL 08/24/18 06:30 09/23/18 06:29 09/07/18 06:43 Height (Feet): 5 Height (Inches): 5.00 Weight (Pounds): 128 Objective exam stable, urine clearing ALEJANDRO COLLIER Sep 07, 2018 09:03
--- NOTE | 2018-09-07 10:06 | General Progress Note ---
Progress Note Progress Note Surgery: no acute events. doing well. luis drain removed rubio removed dressings prn thank you Ezequiel Hayes Sep 07, 2018 10:06
--- NOTE | 2018-09-07 10:19 | Infectious Diseases Prog Note ---
Assessment/Plan Assessment/Plan antibiotics : ertapenem A 1. peritoneal abscess s/p evacuation with providencia, e.coli 2. s/p removal of broken peritoneal catheter 3. leucocytosis resolved 4. diabetes mellitus 5. hypertension 6. dementia p 1. continue ertapenem 5 more days 2. will follow up cultures Subjective ROS Limited/Unobtainable: Yes Allergies: Coded Allergies: No Known Allergies (Unverified , 06/17/18) Objective Vital Signs Last 24 Hour Vital Signs Date Time Temp Pulse Resp B/P (MAP) Pulse Ox O2 Delivery O2 Flow Rate FiO2 09/07/18 08:28 Nasal Cannula 2.0 09/07/18 07:49 98.2 57 16 136/64 (88) 100 98.2 09/07/18 07:47 58 18 Nasal Cannula 2.0 28 09/07/18 07:47 Nasal Cannula 2.0 28 09/07/18 07:47 99 Nasal Cannula 2.0 28 09/07/18 07:45 55 09/07/18 05:43 58 18 94 Full Face 35 09/07/18 04:00 55 09/07/18 04:00 98.2 53 16 158/70 (99) 100 98.2 09/07/18 02:18 60 15 95 Full Face 35 09/07/18 01:40 62 21 94 Full Face 35 09/07/18 00:00 55 09/07/18 00:00 97.9 54 24 133/65 (87) 99 97.9 09/06/18 22:30 58 22 93 Facial 35 09/06/18 21:00 Nasal Cannula 2.0 09/06/18 20:00 57 09/06/18 20:00 97.6 55 20 140/65 (90) 100 97.6 09/06/18 19:30 93 Nasal Cannula 2.0 28 09/06/18 19:30 64 18 Nasal Cannula 2.0 28 09/06/18 19:30 Nasal Cannula 2.0 28 09/06/18 16:00 96.7 63 20 139/67 (91) 95 96.7 09/06/18 15:40 58 09/06/18 12:00 97.3 63 20 129/69 (89) 99 97.3 09/06/18 11:40 61 Height (Feet): 5 Height (Inches): 5.00 Weight (Pounds): 128 Respiratory/Chest: lungs clear Cardiovascular: normal rate, regular rhythm, no gallop/murmur Abdomen: soft, non tender, other - GT Extremities: no edema Current Medications Medications (Trade) Dose Ordered Sig/Benjamin Route PRN Reason Start Time Stop Time Status Last Admin Dose Admin Acetaminophen (Tylenol) 650 mg Q4H PRN ORAL Mild Pain/Temp > 100.5 08/28/18 09:00 09/27/18 08:59 08/28/18 10:16 Aspirin (ASA) 81 mg DAILY GT 08/23/18 09:00 09/22/18 08:59 09/07/18 08:14 Dextrose (Dextrose 50%) 25 ml Q30M PRN IV Hypoglycemia 08/21/18 20:00 09/20/18 19:59 Dextrose (Dextrose 50%) 50 ml Q30M PRN IV Hypoglycemia 08/21/18 20:00 09/20/18 19:59 Ertapenem 1 gm/ Sodium Chloride 55 ml @ 110 mls/hr Q24H IVPB 09/06/18 12:00 09/11/18 11:59 09/06/18 12:36 Heparin Sodium (Porcine) (Heparin 5000 units/ml) 5,000 units EVERY 12 HOURS SUBQ 08/21/18 21:00 09/20/18 20:59 09/07/18 08:15 Insulin Aspart (NovoLOG) EVERY 6 HOURS SUBQ 08/23/18 12:00 09/22/18 11:59 09/07/18 05:40 Lansoprazole (Prevacid) 30 mg DAILY GT 08/25/18 09:00 09/24/18 08:59 09/07/18 08:14 Levetiracetam (Keppra) 750 mg Q12HR GT 09/04/18 09:00 10/04/18 08:59 09/07/18 08:14 Levothyroxine Sodium (Synthroid) 125 mcg DAILY@0630 ORAL 08/24/18 06:30 09/23/18 06:29 09/07/18 06:43 Barbra Oshea MD Sep 07, 2018 10:19
[2018-09-07] MEDS: Ertapenem 1 GM in NS 55 ML IVPB SCH (12:12)
[2018-09-07 12:15] VITALS: BP 121/59
--- NOTE | 2018-09-07 15:09 | Pulmonology Progress Note ---
Assessment/Plan Assessment/Plan Assessment/Plan IMPRESSION: 1. Respiratory failure, acute, improved 2. Previous Sepsis with shock. 3. Dysphagia. 4. G-tube. 5. CVA. 6. Altered mental status. 7. Aspiration pneumonia 8. Severe protein-calorie malnutrition. 9. Diabetes. PLAN: respiratory care as is aspiration precautions noted antibiotics noted and cultures reviewed imaging noted; repeat noted and will order for this week close follow up for change DVT prophylaxis dc planning in progress impression, plan, and exam edited and reviewed in detail care discussed with RN Subjective Allergies: Coded Allergies: No Known Allergies (Unverified , 06/17/18) Subjective reviewed care care noted confused at baseline on antibiotics Objective Last 24 Hour Vital Signs Date Time Temp Pulse Resp B/P (MAP) Pulse Ox O2 Delivery O2 Flow Rate FiO2 09/06/18 12:00 97.3 63 20 129/69 (89) 99 97.3 09/06/18 09:00 Nasal Cannula 2.0 09/06/18 08:00 97.0 57 20 138/74 (95) 98 97.0 09/06/18 07:41 56 09/06/18 06:56 98 Nasal Cannula 2.0 28 09/06/18 06:56 68 18 Nasal Cannula 2.0 28 09/06/18 06:56 Nasal Cannula 2.0 28 09/06/18 05:43 55 26 92 Full Face 35 09/06/18 04:00 97.5 58 17 134/72 (92) 98 97.5 09/06/18 04:00 60 09/06/18 03:42 56 20 98 Facial 35 09/06/18 01:33 54 19 100 Facial 35 09/06/18 00:00 53 09/06/18 00:00 98.1 53 18 123/65 (84) 98 98.1 09/05/18 23:23 56 21 98 Facial 35 09/05/18 22:08 65 21 98 Facial 35 09/05/18 21:00 Nasal Cannula 2.0 09/05/18 20:55 98 Nasal Cannula 2.0 28 09/05/18 20:55 61 18 Nasal Cannula 2.0 28 09/05/18 20:55 Nasal Cannula 2.0 28 09/05/18 20:00 97.9 63 17 127/61 (83) 96 97.9 09/05/18 20:00 61 09/05/18 16:00 97.3 63 24 129/64 (85) 98 97.3 09/05/18 15:12 61 Intake and Output 09/05/18 09/06/18 19:00 07:00 Intake Total 270 ml 400 ml Output Total 400 ml 800 ml Balance -130 ml -400 ml Intake Free Water 100 ml Tube Feeding 270 ml 300 ml Output Urine Total 400 ml 800 ml Objective GENERAL: Ill-appearing male, withdrawn, nonverbal. ALOC LUNGS: occasional rhonchi, moderate air entry, symmetric. CARDIAC: Normal S1, S2. RRR without murmurs, rubs, or gallops. ABDOMEN: Soft, nontender, nondistended. no distention; no HSM EXTREMITIES: No cyanosis or clubbing. no edema SKIN: noted GENITOURINARY: suprapubic catheter. NEUROLOGIC: Neurologically overall same nonverbal at present reviewed and edited Laboratory Tests 09/06/18 06:15: White Blood Count 3.7L, Red Blood Count 3.14L, Hemoglobin 9.5L, Hematocrit 29.6L , Mean Corpuscular Volume 94, Mean Corpuscular Hemoglobin 30.2, Mean Corpuscular Hemoglobin Concent 32.1, Red Cell Distribution Width 15.4H, Platelet Count 356, Mean Platelet Volume 5.1L, Neutrophils (%) (Auto) 62.6, Lymphocytes (%) (Auto) 21.5, Monocytes (%) (Auto) 9.7, Eosinophils (%) (Auto) 4.8H, Basophils (%) (Auto) 1.4, Sodium Level 135L, Potassium Level 4.3, Chloride Level 99, Carbon Dioxide Level 30, Anion Gap 6, Blood Urea Nitrogen 14 , Creatinine 0.7, Estimat Glomerular Filtration Rate , Glucose Level 146H, Calcium Level 9.0, Magnesium Level 2.0, Total Bilirubin 0.1L, Aspartate Amino Transf (AST/SGOT) 15, Alanine Aminotransferase (ALT/SGPT) < 6L, Alkaline Phosphatase 80, Total Protein 7.1, Albumin 1.6L, Globulin 5.5, Albumin/Globulin Ratio 0.3L Current Medications Medications (Trade) Dose Ordered Sig/Benjamin Route PRN Reason Start Time Stop Time Status Last Admin Dose Admin Acetaminophen (Tylenol) 650 mg Q4H PRN ORAL Mild Pain/Temp > 100.5 08/28/18 09:00 11/6/18 08:59 08/28/18 10:16 Aspirin (ASA) 81 mg DAILY GT 08/23/18 09:00 09/22/18 08:59 09/06/18 08:59 Dextrose (Dextrose 50%) 25 ml Q30M PRN IV Hypoglycemia 08/21/18 20:00 09/20/18 19:59 Dextrose (Dextrose 50%) 50 ml Q30M PRN IV Hypoglycemia 08/21/18 20:00 09/20/18 19:59 Ertapenem 1 gm/ Sodium Chloride 55 ml @ 110 mls/hr Q24H IVPB 09/06/18 12:00 09/11/18 11:59 09/06/18 12:36 Heparin Sodium (Porcine) (Heparin 5000 units/ml) 5,000 units EVERY 12 HOURS SUBQ 08/21/18 21:00 09/20/18 20:59 09/06/18 09:00 Insulin Aspart (NovoLOG) EVERY 6 HOURS SUBQ 08/23/18 12:00 09/22/18 11:59 09/06/18 12:37 Lansoprazole (Prevacid) 30 mg DAILY GT 08/25/18 09:00 09/24/18 08:59 09/06/18 08:59 Levetiracetam (Keppra) 750 mg Q12HR GT 09/04/18 09:00 10/04/18 08:59 09/06/18 08:59 Levothyroxine Sodium (Synthroid) 125 mcg DAILY@0630 ORAL 08/24/18 06:30 09/23/18 06:29 09/06/18 06:04 Subjective ROS Limited/Unobtainable: No Allergies: Coded Allergies: No Known Allergies (Unverified , 06/17/18) Objective Last 24 Hour Vital Signs Date Time Temp Pulse Resp B/P (MAP) Pulse Ox O2 Delivery O2 Flow Rate FiO2 09/07/18 12:15 98.2 65 16 121/59 (79) 100 98.2 09/07/18 12:11 67 09/07/18 08:28 Nasal Cannula 2.0 09/07/18 07:49 98.2 57 16 136/64 (88) 100 98.2 09/07/18 07:47 18 Nasal Cannula 2.0 28 09/07/18 07:47 Nasal Cannula 2.0 28 09/07/18 07:47 99 Nasal Cannula 2.0 28 09/07/18 07:45 55 09/07/18 05:43 58 18 94 Full Face 35 09/07/18 04:00 55 09/07/18 04:00 98.2 53 16 158/70 (99) 100 98.2 09/07/18 02:18 60 15 95 Full Face 35 09/07/18 01:40 62 21 94 Full Face 35 09/07/18 00:00 55 09/07/18 00:00 97.9 54 24 133/65 (87) 99 97.9 09/06/18 22:30 58 22 93 Facial 35 09/06/18 21:00 Nasal Cannula 2.0 09/06/18 20:00 57 09/06/18 20:00 97.6 55 20 140/65 (90) 100 97.6 09/06/18 19:30 93 Nasal Cannula 2.0 28 09/06/18 19:30 64 18 Nasal Cannula 2.0 28 09/06/18 19:30 Nasal Cannula 2.0 28 09/06/18 16:00 96.7 63 20 139/67 (91) 95 96.7 09/06/18 15:40 58 Intake and Output 09/06/18 09/07/18 19:00 07:00 Intake Total 400 ml 680 ml Output Total 300 ml Balance 100 ml 680 ml Intake Free Water 100 ml Tube Feeding 400 ml 580 ml Output Urine Total 300 ml Current Medications Medications (Trade) Dose Ordered Sig/Benjamin Route PRN Reason Start Time Stop Time Status Last Admin Dose Admin Acetaminophen (Tylenol) 650 mg Q4H PRN ORAL Mild Pain/Temp > 100.5 08/28/18 09:00 09/27/18 08:59 08/28/18 10:16 Aspirin (ASA) 81 mg DAILY GT 08/23/18 09:00 09/22/18 08:59 09/07/18 08:14 Dextrose (Dextrose 50%) 25 ml Q30M PRN IV Hypoglycemia 08/21/18 20:00 09/20/18 19:59 Dextrose (Dextrose 50%) 50 ml Q30M PRN IV Hypoglycemia 08/21/18 20:00 09/20/18 19:59 Ertapenem 1 gm/ Sodium Chloride 55 ml @ 110 mls/hr Q24H IVPB 09/06/18 12:00 09/11/18 11:59 09/07/18 12:12 Heparin Sodium (Porcine) (Heparin 5000 units/ml) 5,000 units EVERY 12 HOURS SUBQ 08/21/18 21:00 09/20/18 20:59 09/07/18 08:15 Insulin Aspart (NovoLOG) EVERY 6 HOURS SUBQ 08/23/18 12:00 09/22/18 11:59 09/07/18 12:12 Lansoprazole (Prevacid) 30 mg DAILY GT 08/25/18 09:00 09/24/18 08:59 09/07/18 08:14 Levetiracetam (Keppra) 750 mg Q12HR GT 09/04/18 09:00 10/04/18 08:59 09/07/18 08:14 Levothyroxine Sodium (Synthroid) 125 mcg DAILY@0630 ORAL 08/24/18 06:30 09/23/18 06:29 09/07/18 06:43 Bryon Carlson MD Sep 07, 2018 15:09
[2018-09-07 15:57] VITALS: BP 147/60
[2018-09-07 20:00] VITALS: BP 143/68
[2018-09-08] VITALS: BP 144/68
--- NOTE | 2018-09-08 00:15 | Progress Note ---
DATE: 09/07/2018 CARDIOLOGY PROGRESS NOTE SUBJECTIVE: The patient remains with some congestion at times. Respiratory therapy is continued. Monitored rhythm sinus. He still has abdominal drain following surgical removal of retained dialysis catheter. OBJECTIVE: LUNGS: Coarse breath sounds. Scattered rhonchi. HEART: Regular rhythm and rate. Normal S1, S2. ABDOMEN: Soft, G-tube and suprapubic catheter sites are patent. EXTREMITIES: There is no edema. IMPRESSION: 1. Status post sepsis with shock, recovered from acute myocardial ischemia. 2. Non-ST elevation infarction. 3. Acute on chronic diastolic congestive heart failure, clinically compensated. PLAN: 1. No additional cardiovascular workup planned. 2. Maintain current cardiovascular medications upon discharge to the [facility] facility. Discussed with primary care physician. Bryon Ramirez M.D. DR: GLAILEA JOB#: [id number] CC:
[2018-09-08 04:00] VITALS: BP 150/68
[2018-09-08] MEDS: Levothyroxine 125mcg tab ORAL SCH (05:50)
[2018-09-08] MEDS: NovoLOG Insulin Flexpen SUBQ SCH ×3 (05:50→17:54)
[2018-09-08 08:00] VITALS: BP 155/73
[2018-09-08] MEDS: Aspirin Baby 81mg GT SCH (09:21)
[2018-09-08] MEDS: Heparin 5000 units/ml inj SUBQ SCH (09:26)
--- NOTE | 2018-09-08 11:26 | General Progress Note ---
Assessment/Plan Problem List: (1) UTI (urinary tract infection) ICD Codes: N39.0 - Urinary tract infection, site not specified SNOMED: 03611239 Qualifiers: Qualified Codes: T83.511A - Infection and inflammatory reaction due to indwelling urethral catheter, initial encounter; N39.0 - Urinary tract infection , site not specified (2) Severe sepsis ICD Codes: A41.9 - Sepsis, unspecified organism; R65.20 - Severe sepsis without septic shock SNOMED: 42092718 (3) NSTEMI (non-ST elevated myocardial infarction) ICD Codes: I21.4 - Non-ST elevation (NSTEMI) myocardial infarction SNOMED: 490914071 (4) Right lower lobe pneumonia ICD Codes: J18.1 - Lobar pneumonia, unspecified organism SNOMED: 969835061 Qualifiers: (5) Elevated lactic acid level ICD Codes: R79.89 - Other specified abnormal findings of blood chemistry SNOMED: 7237986 Status: stable, progressing Assessment/Plan iv abx per id drain management per surgery off ivf bipap as needed and at night pain rx as needed resp rx gt feeds dvt/stress ulcer prophlaxis skin care dc planning wednesday ? Subjective Allergies: Coded Allergies: No Known Allergies (Unverified , 06/17/18) Subjective no events. no new complaints. no fevers. tolerating feeds. on iv abx Drain removed. labs reviewed. remains on noctural bipap Objective Last 24 Hour Vital Signs Date Time Temp Pulse Resp B/P (MAP) Pulse Ox O2 Delivery O2 Flow Rate FiO2 09/08/18 09:44 Nasal Cannula 2.0 28 09/08/18 09:44 97 Nasal Cannula 2.0 28 09/08/18 09:43 62 20 Nasal Cannula 2.0 28 09/08/18 08:00 97.9 69 28 155/73 (100) 96 97.9 09/08/18 08:00 Nasal Cannula 2.0 09/08/18 07:33 50 09/08/18 05:06 59 23 98 Full Face 35 09/08/18 04:00 97.3 52 23 150/68 (95) 100 97.3 09/08/18 04:00 58 09/08/18 03:44 58 22 97 Full Face 35 09/08/18 00:35 65 23 97 Full Face 35 09/08/18 00:00 97.2 56 24 144/68 (93) 100 97.2 09/07/18 22:07 64 16 Bi-pap 35 09/07/18 22:00 64 16 97 Full Face 35 09/07/18 21:00 Nasal Cannula 2.0 09/07/18 20:00 96 Nasal Cannula 2.0 28 09/07/18 20:00 57 09/07/18 20:00 Nasal Cannula 2.0 28 09/07/18 20:00 97.7 64 21 143/68 (93) 97 97.7 09/07/18 15:57 98.2 65 16 147/60 (89) 100 98.2 09/07/18 15:09 68 09/07/18 12:15 98.2 65 16 121/59 (79) 100 98.2 09/07/18 12:11 67 Intake and Output 09/07/18 09/08/18 19:00 07:00 Intake Total 850 ml Output Total 500 ml Balance 850 ml -500 ml Intake Free Water 200 ml Tube Feeding 650 ml Output Urine Total 500 ml Height (Feet): 5 Height (Inches): 5.00 Weight (Pounds): 128 Objective General Appearance: WD/WN, on bipap. opens eyes Neck: supple Cardiovascular: normal rate, regular rhythm Respiratory/Chest: chest wall non-tender, lungs with farhat rhonchi Abdomen: normal bowel sounds, non tender, soft, no organomegaly Neurologic: unresponsive, aphasia Michael Zuniga MD Sep 08, 2018 11:26
--- NOTE | 2018-09-08 11:35 | Infectious Diseases Prog Note ---
Assessment/Plan Assessment/Plan A: Peritoneal abscess, culture ESBL E. coli Complicated UTI treated Pneumonia Hypoxic respiratory failure Dementia DM HPN Sacral stage 3 pressure ulcer Broken peritoneal catheter P; Continue Ertapenem 4 days Subjective ROS Limited/Unobtainable: Yes Allergies: Coded Allergies: No Known Allergies (Unverified , 06/17/18) Objective Vital Signs Last 24 Hour Vital Signs Date Time Temp Pulse Resp B/P (MAP) Pulse Ox O2 Delivery O2 Flow Rate FiO2 09/08/18 09:44 Nasal Cannula 2.0 28 09/08/18 09:44 97 Nasal Cannula 2.0 28 09/08/18 09:43 62 20 Nasal Cannula 2.0 28 09/08/18 08:00 97.9 69 28 155/73 (100) 96 97.9 09/08/18 08:00 Nasal Cannula 2.0 09/08/18 07:33 50 09/08/18 05:06 59 23 98 Full Face 35 09/08/18 04:00 97.3 52 23 150/68 (95) 100 97.3 09/08/18 04:00 58 09/08/18 03:44 58 22 97 Full Face 35 09/08/18 00:35 65 23 97 Full Face 35 09/08/18 00:00 97.2 56 24 144/68 (93) 100 97.2 09/07/18 22:07 64 16 Bi-pap 35 09/07/18 22:00 64 16 97 Full Face 35 09/07/18 21:00 Nasal Cannula 2.0 09/07/18 20:00 96 Nasal Cannula 2.0 28 09/07/18 20:00 57 09/07/18 20:00 Nasal Cannula 2.0 28 09/07/18 20:00 97.7 64 21 143/68 (93) 97 97.7 09/07/18 15:57 98.2 65 16 147/60 (89) 100 98.2 09/07/18 15:09 68 09/07/18 12:15 98.2 65 16 121/59 (79) 100 98.2 09/07/18 12:11 67 Height (Feet): 5 Height (Inches): 5.00 Weight (Pounds): 128 General Appearance: no acute distress HEENT: mucous membranes moist Respiratory/Chest: lungs clear Cardiovascular: normal rate Abdomen: soft, non tender, other - GT feeding Genitourinary: other - suprapubic catheter Extremities: no edema Neurologic/Psychiatric: unresponsiveness Current Medications Medications (Trade) Dose Ordered Sig/Benjamin Route PRN Reason Start Time Stop Time Status Last Admin Dose Admin Acetaminophen (Tylenol) 650 mg Q4H PRN ORAL Mild Pain/Temp > 100.5 08/28/18 09:00 09/27/18 08:59 08/28/18 10:16 Aspirin (ASA) 81 mg DAILY GT 08/23/18 09:00 09/22/18 08:59 09/08/18 09:21 Dextrose (Dextrose 50%) 25 ml Q30M PRN IV Hypoglycemia 08/21/18 20:00 09/20/18 19:59 Dextrose (Dextrose 50%) 50 ml Q30M PRN IV Hypoglycemia 08/21/18 20:00 09/20/18 19:59 Ertapenem 1 gm/ Sodium Chloride 55 ml @ 110 mls/hr Q24H IVPB 09/06/18 12:00 09/11/18 11:59 09/07/18 12:12 Heparin Sodium (Porcine) (Heparin 5000 units/ml) 5,000 units EVERY 12 HOURS SUBQ 08/21/18 21:00 09/20/18 20:59 09/08/18 09:26 Insulin Aspart (NovoLOG) EVERY 6 HOURS SUBQ 08/23/18 12:00 09/22/18 11:59 09/08/18 05:50 Lansoprazole (Prevacid) 30 mg DAILY GT 08/25/18 09:00 09/24/18 08:59 09/08/18 09:22 Levetiracetam (Keppra) 750 mg Q12HR GT 09/04/18 09:00 10/04/18 08:59 09/08/18 09:22 Levothyroxine Sodium (Synthroid) 125 mcg DAILY@0630 ORAL 08/24/18 06:30 09/23/18 06:29 09/08/18 05:50 Slade Odonnell MD Sep 08, 2018 11:35
[2018-09-08 12:00] VITALS: BP 158/69
[2018-09-08] MEDS: Ertapenem 1 GM in NS 55 ML IVPB SCH (12:13)
[2018-09-08 12:42] LABS: BASOPHILS % (AUTO) 1.1 % (0.0-2.0); EOSINOPHILS % (AUTO) 1.7 % (0.0-3.0); HEMATOCRIT 31.1 % (42.0-52.0); HEMOGLOBIN 10.1 G/DL (14.2-18.0); LYMPHOCYTES % (AUTO) 23.3 % (20.0-45.0); MEAN CORPUSCULAR VOLUME 93 FL (80-99); MONOCYTES % (AUTO) 9.2 % (1.0-10.0); NEUTROPHILS % (AUTO) 64.7 % (45.0-75.0); PLATELET COUNT 422 K/UL (150-450); RED BLOOD COUNT 3.36 M/UL (4.70-6.10); RED CELL DISTRIBUTION WIDTH 14.5 % (11.6-14.8); WHITE BLOOD COUNT 5.9 K/UL (4.8-10.8)
[2018-09-08 12:56] LABS: ALANINE AMINOTRANSFERASE 6 U/L (12-78); ALBUMIN 1.9 G/DL (3.4-5.0); ALBUMIN/GLOBULIN RATIO 0.3 (1.0-2.7); ALKALINE PHOSPHATASE 86 U/L (46-116); ANION GAP 3 mmol/L (5-15); ASPARTATE AMINO TRANSFERASE 15 U/L (15-37); BILIRUBIN,TOTAL 0.1 MG/DL (0.2-1.0); BLOOD UREA NITROGEN 16 mg/dL (7-18); CALCIUM 9.4 MG/DL (8.5-10.1); CARBON DIOXIDE 33 MMOL/L (21-32); CHLORIDE 98 MMOL/L (98-107); CREATININE 0.7 MG/DL (0.55-1.30); POTASSIUM 5.1 MMOL/L (3.5-5.1); SODIUM 134 MMOL/L (136-145)
[2018-09-08 16:00] VITALS: BP 136/108
--- NOTE | 2018-09-08 17:04 | Urology Progress Note ---
Assessment/Plan Assessment/Plan 1. Urinary retention with chronic suprapubic tube. 2. Benign prostatic hypertrophy history. 3. Neurogenic bladder. 4. Urinary tract infection and colonization. 5. Hematuria. 6. Proteinuria. keep SP tube, last exchanged 08/23 hand irrigate PRN cont with abx as ordered cysto later consider recheck urine cx at some point Subjective Allergies: Coded Allergies: No Known Allergies (Unverified , 06/17/18) Subjective all noted, peritoneal cath removed 09/01 Objective Last 24 Hour Vital Signs Date Time Temp Pulse Resp B/P (MAP) Pulse Ox O2 Delivery O2 Flow Rate FiO2 09/08/18 12:00 98.1 56 24 158/69 (98) 97 98.1 09/08/18 11:40 59 09/08/18 09:44 Nasal Cannula 2.0 28 09/08/18 09:44 97 Nasal Cannula 2.0 28 09/08/18 09:43 62 20 Nasal Cannula 2.0 28 09/08/18 08:00 97.9 69 28 155/73 (100) 96 97.9 09/08/18 08:00 Nasal Cannula 2.0 09/08/18 07:33 50 09/08/18 05:06 59 23 98 Full Face 35 09/08/18 04:00 97.3 52 23 150/68 (95) 100 97.3 09/08/18 04:00 58 09/08/18 03:44 58 22 97 Full Face 35 09/08/18 00:35 65 23 97 Full Face 35 09/08/18 00:00 97.2 56 24 144/68 (93) 100 97.2 09/07/18 22:07 64 16 Bi-pap 35 09/07/18 22:00 64 16 97 Full Face 35 09/07/18 21:00 Nasal Cannula 2.0 09/07/18 20:00 96 Nasal Cannula 2.0 28 09/07/18 20:00 57 09/07/18 20:00 Nasal Cannula 2.0 28 09/07/18 20:00 97.7 64 21 143/68 (93) 97 97.7 Intake and Output 09/07/18 09/08/18 19:00 07:00 Intake Total 850 ml Output Total 500 ml Balance 850 ml -500 ml Intake Free Water 200 ml Tube Feeding 650 ml Output Urine Total 500 ml Microbiology Date/Time Source Procedure Growth Status 9/30/18 15:15 Blood Blood Culture - Final NO GROWTH AFTER 5 DAYS Complete 08/23/18 18:45 Wound Gram Stain - Final Complete 08/23/18 18:45 Wound Culture - Final Staphylococcus Aureus - Mrsa Complete 08/23/18 11:30 Sputum Gram Stain - Final Complete 08/23/18 11:30 Sputum Sputum Culture - Final NORMAL UPPER RESPIRATORY KRISSY PRESENT Complete 08/25/18 17:00 Stool Clostridium difficile Toxin Assay - Final Complete 08/21/18 15:15 Urine,Clean Catch Urine Culture - Final Providencia Stuartii Complete 09/01/18 15:56 Abdominal Abscess Gram Stain - Final Complete 09/01/18 15:56 Aerobic Culture - Final Escherichia Coli - Esbl Providencia Stuartii Usual Skin Krissy Complete 09/01/18 15:56 Abdominal Abscess Anaerobic Culture - Final NO ANAEROBES ISOLATED Complete Current Medications Medications (Trade) Dose Ordered Sig/Benjamin Route PRN Reason Start Time Stop Time Status Last Admin Dose Admin Acetaminophen (Tylenol) 650 mg Q4H PRN ORAL Mild Pain/Temp > 100.5 08/28/18 09:00 09/27/18 08:59 08/28/18 10:16 Aspirin (ASA) 81 mg DAILY GT 08/23/18 09:00 09/22/18 08:59 09/08/18 09:21 Dextrose (Dextrose 50%) 25 ml Q30M PRN IV Hypoglycemia 08/21/18 20:00 09/20/18 19:59 Dextrose (Dextrose 50%) 50 ml Q30M PRN IV Hypoglycemia 08/21/18 20:00 09/20/18 19:59 Ertapenem 1 gm/ Sodium Chloride 55 ml @ 110 mls/hr Q24H IVPB 09/06/18 12:00 09/11/18 11:59 09/08/18 12:13 Heparin Sodium (Porcine) (Heparin 5000 units/ml) 5,000 units EVERY 12 HOURS SUBQ 08/21/18 21:00 09/20/18 20:59 09/08/18 09:26 Insulin Aspart (NovoLOG) EVERY 6 HOURS SUBQ 08/23/18 12:00 09/22/18 11:59 09/08/18 12:12 Lansoprazole (Prevacid) 30 mg DAILY GT 08/25/18 09:00 09/24/18 08:59 10/18/18 09:22 Levetiracetam (Keppra) 750 mg Q12HR GT 09/04/18 09:00 10/04/18 08:59 09/08/18 09:22 Levothyroxine Sodium (Synthroid) 125 mcg DAILY@0630 ORAL 08/24/18 06:30 09/23/18 06:29 09/08/18 05:50 Laboratory Tests 09/08/18 12:30: White Blood Count 5.9, Red Blood Count 3.36L, Hemoglobin 10.1L, Hematocrit 31.1L , Mean Corpuscular Volume 93, Mean Corpuscular Hemoglobin 30.1, Mean Corpuscular Hemoglobin Concent 32.5, Red Cell Distribution Width 14.5, Platelet Count 422, Mean Platelet Volume 5.1L, Neutrophils (%) (Auto) 64.7, Lymphocytes ( %) (Auto) 23.3, Monocytes (%) (Auto) 9.2, Eosinophils (%) (Auto) 1.7, Basophils (%) (Auto) 1.1, Sodium Level 134L, Potassium Level 5.1, Chloride Level 98, Carbon Dioxide Level 33H, Anion Gap 3L, Blood Urea Nitrogen 16, Creatinine 0.7, Estimat Glomerular Filtration Rate , Glucose Level 148H, Calcium Level 9.4, Total Bilirubin 0.1L, Aspartate Amino Transf (AST/SGOT) 15, Alanine Aminotransferase (ALT/SGPT) 6L, Alkaline Phosphatase 86, Total Protein 8.0, Albumin 1.9L, Globulin 6.1, Albumin/Globulin Ratio 0.3L Height (Feet): 5 Height (Inches): 5.00 Weight (Pounds): 128 Objective exam stable, urine clearing ALEJANDRO COLLIER Sep 08, 2018 17:04
--- NOTE | 2018-09-08 17:09 | Pulmonology Progress Note ---
Assessment/Plan Assessment/Plan IMPRESSION: 1. Respiratory failure, resolved 2. Sepsis with shock. improved 3. Dysphagia. 4. G-tube. 5. CVA. 6. Altered mental status. 7. Aspiration pneumonia 8. Severe protein-calorie malnutrition. 9. Diabetes. PLAN respiratory care as is aspiration precautions noted antibiotics noted and cultures reviewed imaging noted; repeat noted and will order for this week close follow up for change DVT prophylaxis dc planning in progress impression, plan, and exam edited and reviewed in detail care discussed with RN Subjective ROS Limited/Unobtainable: Yes Allergies: Coded Allergies: No Known Allergies (Unverified , 06/17/18) Subjective reviewed care care noted confused on antibiotics Objective Last 24 Hour Vital Signs Date Time Temp Pulse Resp B/P (MAP) Pulse Ox O2 Delivery O2 Flow Rate FiO2 09/08/18 12:00 98.1 56 24 158/69 (98) 97 98.1 09/08/18 11:40 59 09/08/18 09:44 Nasal Cannula 2.0 28 09/08/18 09:44 97 Nasal Cannula 2.0 28 09/08/18 09:43 62 20 Nasal Cannula 2.0 28 09/08/18 08:00 97.9 69 28 155/73 (100) 96 97.9 09/08/18 08:00 Nasal Cannula 2.0 09/08/18 07:33 50 09/08/18 05:06 59 23 98 Full Face 35 09/08/18 04:00 97.3 52 23 150/68 (95) 100 97.3 09/08/18 04:00 58 09/08/18 03:44 58 22 97 Full Face 35 09/08/18 00:35 65 23 97 Full Face 35 09/08/18 00:00 97.2 56 24 144/68 (93) 100 97.2 09/07/18 22:07 64 16 Bi-pap 35 09/07/18 22:00 64 16 97 Full Face 35 09/07/18 21:00 Nasal Cannula 2.0 09/07/18 20:00 96 Nasal Cannula 2.0 28 09/07/18 20:00 57 09/07/18 20:00 Nasal Cannula 2.0 28 09/07/18 20:00 97.7 64 21 143/68 (93) 97 97.7 Intake and Output 09/07/18 09/08/18 19:00 07:00 Intake Total 850 ml Output Total 500 ml Balance 850 ml -500 ml Intake Free Water 200 ml Tube Feeding 650 ml Output Urine Total 500 ml Objective GENERAL: Ill-appearing male, withdrawn, nonverbal. ALOC LUNGS: occasional rhonchi, moderate air entry, symmetric. CARDIAC: Normal S1, S2. RRR without murmurs, rubs, or gallops. ABDOMEN: Soft, nontender, nondistended. no distention; no HSM EXTREMITIES: No cyanosis or clubbing. no edema SKIN: noted GENITOURINARY: suprapubic catheter. NEUROLOGIC: Neurologically overall same nonverbal at present reviewed and edited Laboratory Tests 09/08/18 12:30: White Blood Count 5.9, Red Blood Count 3.36L, Hemoglobin 10.1L, Hematocrit 31.1L , Mean Corpuscular Volume 93, Mean Corpuscular Hemoglobin 30.1, Mean Corpuscular Hemoglobin Concent 32.5, Red Cell Distribution Width 14.5, Platelet Count 422, Mean Platelet Volume 5.1L, Neutrophils (%) (Auto) 64.7, Lymphocytes ( %) (Auto) 23.3, Monocytes (%) (Auto) 9.2, Eosinophils (%) (Auto) 1.7, Basophils (%) (Auto) 1.1, Sodium Level 134L, Potassium Level 5.1, Chloride Level 98, Carbon Dioxide Level 33H, Anion Gap 3L, Blood Urea Nitrogen 16, Creatinine 0.7, Estimat Glomerular Filtration Rate , Glucose Level 148H, Calcium Level 9.4, Total Bilirubin 0.1L, Aspartate Amino Transf (AST/SGOT) 15, Alanine Aminotransferase (ALT/SGPT) 6L, Alkaline Phosphatase 86, Total Protein 8.0, Albumin 1.9L, Globulin 6.1, Albumin/Globulin Ratio 0.3L Current Medications Medications (Trade) Dose Ordered Sig/Benjamin Route PRN Reason Start Time Stop Time Status Last Admin Dose Admin Acetaminophen (Tylenol) 650 mg Q4H PRN ORAL Mild Pain/Temp > 100.5 08/28/18 09:00 09/27/18 08:59 08/28/18 10:16 Aspirin (ASA) 81 mg DAILY GT 08/23/18 09:00 09/22/18 08:59 09/08/18 09:21 Dextrose (Dextrose 50%) 25 ml Q30M PRN IV Hypoglycemia 08/21/18 20:00 09/20/18 19:59 Dextrose (Dextrose 50%) 50 ml Q30M PRN IV Hypoglycemia 08/21/18 20:00 09/20/18 19:59 Ertapenem 1 gm/ Sodium Chloride 55 ml @ 110 mls/hr Q24H IVPB 09/06/18 12:00 09/11/18 11:59 09/08/18 12:13 Heparin Sodium (Porcine) (Heparin 5000 units/ml) 5,000 units EVERY 12 HOURS SUBQ 08/21/18 21:00 09/20/18 20:59 09/08/18 09:26 Insulin Aspart (NovoLOG) EVERY 6 HOURS SUBQ 08/23/18 12:00 09/22/18 11:59 09/08/18 12:12 Lansoprazole (Prevacid) 30 mg DAILY GT 08/25/18 09:00 09/24/18 08:59 09/08/18 09:22 Levetiracetam (Keppra) 750 mg Q12HR GT 09/04/18 09:00 10/04/18 08:59 09/08/18 09:22 Levothyroxine Sodium (Synthroid) 125 mcg DAILY@0630 ORAL 08/24/18 06:30 09/23/18 06:29 09/08/18 05:50 James Langston MD Sep 08, 2018 17:09
[2018-09-08] MEDS ORDERED: Albuterol/Ipratropium 3ml neb HHN PRN (19:00)
[2018-09-08 19:44] LABS: HEMATOCRIT 29.9 % (42.0-52.0); HEMOGLOBIN 9.8 G/DL (14.2-18.0); MEAN CORPUSCULAR VOLUME 95 FL (80-99); PLATELET COUNT 459 K/UL (150-450); RED BLOOD COUNT 3.15 M/UL (4.70-6.10); RED CELL DISTRIBUTION WIDTH 14.7 % (11.6-14.8); WHITE BLOOD COUNT 11.4 K/UL (4.8-10.8)
[2018-09-08 19:47] LABS: BASOPHILS % (AUTO) 0.8 % (0.0-2.0); EOSINOPHILS % (AUTO) 0.3 % (0.0-3.0); LYMPHOCYTES % (AUTO) 8.1 % (20.0-45.0); MONOCYTES % (AUTO) 4.1 % (1.0-10.0); NEUTROPHILS % (AUTO) 86.6 % (45.0-75.0)
[2018-09-08 19:55] LABS: ALANINE AMINOTRANSFERASE 7 U/L (12-78); ALBUMIN/GLOBULIN RATIO 0.4 (1.0-2.7); ALKALINE PHOSPHATASE 89 U/L (46-116); ANION GAP 6 mmol/L (5-15); ASPARTATE AMINO TRANSFERASE 15 U/L (15-37); BILIRUBIN,TOTAL 0.1 MG/DL (0.2-1.0); BLOOD UREA NITROGEN 17 mg/dL (7-18); CALCIUM 9.1 MG/DL (8.5-10.1); CARBON DIOXIDE 32 MMOL/L (21-32); CHLORIDE 98 MMOL/L (98-107); CREATININE 0.7 MG/DL (0.55-1.30); POTASSIUM 4.3 MMOL/L (3.5-5.1); SODIUM 135 MMOL/L (136-145)
[2018-09-08 20:08] VITALS: BP 148/79
[2018-09-08] MEDS ORDERED: Heparin 5000 units/ml inj SUBQ SCH (21:00)
[2018-09-08] MEDS ORDERED: levETIRAcetam 500mg/5ml Liquid GT SCH (21:00)
[2018-09-08] MEDS: metroNIDAZOLE 500mg tab ORAL SCH (22:31)
[2018-09-08] MEDS: Piperacillin/Tazobactam 3.375 GM in D5W 110 ML IVPB SCH (22:41)
[2018-09-09] VITALS: BP 152/83
[2018-09-09] MEDS: NovoLOG Insulin Flexpen SUBQ SCH ×4 (00:12→17:47)
[2018-09-09 04:45] VITALS: BP 158/82
[2018-09-09] MEDS: Piperacillin/Tazobactam 3.375 GM in D5W 110 ML IVPB SCH (05:38)
[2018-09-09] MEDS: metroNIDAZOLE 500mg tab ORAL SCH (05:38)
[2018-09-09] MEDS ORDERED: Levothyroxine 125mcg tab ORAL SCH (06:30)
--- NOTE | 2018-09-09 06:33 | General Progress Note ---
Assessment/Plan Problem List: (1) UTI (urinary tract infection) ICD Codes: N39.0 - Urinary tract infection, site not specified SNOMED: 72437522 Qualifiers: Qualified Codes: T83.511A - Infection and inflammatory reaction due to indwelling urethral catheter, initial encounter; N39.0 - Urinary tract infection , site not specified (2) Severe sepsis ICD Codes: A41.9 - Sepsis, unspecified organism; R65.20 - Severe sepsis without septic shock SNOMED: 45352741 (3) NSTEMI (non-ST elevated myocardial infarction) ICD Codes: I21.4 - Non-ST elevation (NSTEMI) myocardial infarction SNOMED: 410790084 (4) Right lower lobe pneumonia ICD Codes: J18.1 - Lobar pneumonia, unspecified organism SNOMED: 981177775 Qualifiers: (5) Elevated lactic acid level ICD Codes: R79.89 - Other specified abnormal findings of blood chemistry SNOMED: 4029300 Status: stable, progressing Assessment/Plan check abg and head ct cont abx per id transfer to [facility]u neuro eval. Subjective ROS Limited/Unobtainable: Yes Constitutional: Reports: no symptoms, malaise, weakness HEENT: Reports: no symptoms Cardiovascular: Reports: no symptoms Respiratory: Reports: no symptoms Gastrointestinal/Abdominal: Reports: difficulty swallowing Genitourinary: Reports: no symptoms Neurologic/Psychiatric: Reports: other - unresponsive Endocrine: Reports: no symptoms Hematologic/Lymphatic: Reports: no symptoms Allergies: Coded Allergies: No Known Allergies (Unverified , 06/17/18) All Systems: reviewed and negative except above Subjective unresponsive this am. does not respond to painful stimuli. per staff pt was unresponsive when transferred but were told it was pts baseline. used bipap last night. no distress noted. Objective Last 24 Hour Vital Signs Date Time Temp Pulse Resp B/P (MAP) Pulse Ox O2 Delivery O2 Flow Rate FiO2 09/09/18 05:25 75 20 98 Full Face 35 09/09/18 04:45 97.3 75 14 158/82 (107) 98 97.3 09/09/18 03:05 81 18 97 Full Face 35 09/09/18 01:03 67 19 98 Full Face 35 09/09/18 00:00 98.0 81 21 152/83 (106) 97 98.0 09/08/18 22:50 82 22 99 Full Face 35 09/08/18 21:13 Nasal Cannula 2.0 09/08/18 20:08 98.1 91 20 148/79 (102) 94 98.1 09/08/18 19:05 95 Nasal Cannula 2.0 28 09/08/18 19:05 Nasal Cannula 2.0 28 09/08/18 19:04 87 20 Nasal Cannula 2.0 28 09/08/18 16:00 98.0 80 22 136/108 (117) 98 98.0 09/08/18 15:30 71 09/08/18 12:00 98.1 56 24 158/69 (98) 97 98.1 09/08/18 11:40 59 09/08/18 09:44 Nasal Cannula 2.0 28 09/08/18 09:44 97 Nasal Cannula 2.0 28 09/08/18 09:43 62 20 Nasal Cannula 2.0 28 09/08/18 08:00 97.9 69 28 155/73 (100) 96 97.9 09/08/18 08:00 Nasal Cannula 2.0 09/08/18 07:33 50 Intake and Output 09/08/18 09/09/18 19:00 07:00 Intake Total 775 ml 815.0 ml Output Total 400 ml Balance 775 ml 415.0 ml Intake Free Water 60 ml 120 ml IV Total 110.0 ml Tube Feeding 715 ml 585 ml Output Urine Total 400 ml Laboratory Tests 09/08/18 12:30: White Blood Count 5.9, Red Blood Count 3.36L, Hemoglobin 10.1L, Hematocrit 31.1L , Mean Corpuscular Volume 93, Mean Corpuscular Hemoglobin 30.1, Mean Corpuscular Hemoglobin Concent 32.5, Red Cell Distribution Width 14.5, Platelet Count 422, Mean Platelet Volume 5.1L, Neutrophils (%) (Auto) 64.7, Lymphocytes ( %) (Auto) 23.3, Monocytes (%) (Auto) 9.2, Eosinophils (%) (Auto) 1.7, Basophils (%) (Auto) 1.1, Sodium Level 134L, Potassium Level 5.1, Chloride Level 98, Carbon Dioxide Level 33H, Anion Gap 3L, Blood Urea Nitrogen 16, Creatinine 0.7, Estimat Glomerular Filtration Rate , Glucose Level 148H, Calcium Level 9.4, Total Bilirubin 0.1L, Aspartate Amino Transf (AST/SGOT) 15, Alanine Aminotransferase (ALT/SGPT) 6L, Alkaline Phosphatase 86, Total Protein 8.0, Albumin 1.9L, Globulin 6.1, Albumin/Globulin Ratio 0.3L 09/08/18 19:15: White Blood Count 11.4#H, Red Blood Count 3.15L, Hemoglobin 9.8L, Hematocrit 29.9L, Mean Corpuscular Volume 95, Mean Corpuscular Hemoglobin 31.1H, Mean Corpuscular Hemoglobin Concent 32.8, Red Cell Distribution Width 14.7, Platelet Count 459H, Mean Platelet Volume 5.1L, Neutrophils (%) (Auto) 86.6H, Lymphocytes (%) (Auto) 8.1L, Monocytes (%) (Auto) 4.1, Eosinophils (%) (Auto) 0.3, Basophils (%) (Auto) 0.8, Sodium Level 135L, Potassium Level 4.3, Chloride Level 98, Carbon Dioxide Level 32, Anion Gap 6, Blood Urea Nitrogen 17, Creatinine 0.7, Estimat Glomerular Filtration Rate , Glucose Level 161H, Calcium Level 9.1, Total Bilirubin 0.1L, Aspartate Amino Transf (AST/SGOT) 15, Alanine Aminotransferase (ALT/SGPT) 7L, Alkaline Phosphatase 89, Total Protein 7.7, Albumin 2.0L, Globulin 5.7, Albumin/Globulin Ratio 0.4L Height (Feet): 5 Height (Inches): 5.00 Weight (Pounds): 128 Objective General Appearance: WD/WN, off bipap. opens eyes. unresponsive Neck: supple Cardiovascular: normal rate, regular rhythm Respiratory/Chest: chest wall non-tender, lungs with farhat rhonchi Abdomen: normal bowel sounds, non tender, soft, no organomegaly Neurologic: unresponsive, aphasia Michael Zuniga MD Sep 09, 2018 06:33
[2018-09-09 07:53] LABS: HEMATOCRIT 31.1 % (42.0-52.0); HEMOGLOBIN 10.2 G/DL (14.2-18.0); MEAN CORPUSCULAR VOLUME 94 FL (80-99); PLATELET COUNT 425 K/UL (150-450); RED BLOOD COUNT 3.32 M/UL (4.70-6.10); RED CELL DISTRIBUTION WIDTH 14.7 % (11.6-14.8); WHITE BLOOD COUNT 8.1 K/UL (4.8-10.8)
[2018-09-09 08:00] VITALS: BP 171/99
[2018-09-09 08:07] LABS: ALANINE AMINOTRANSFERASE 6 U/L (12-78); ALBUMIN 1.8 G/DL (3.4-5.0); ALBUMIN/GLOBULIN RATIO 0.3 (1.0-2.7); ALKALINE PHOSPHATASE 94 U/L (46-116); ANION GAP 3 mmol/L (5-15); ASPARTATE AMINO TRANSFERASE 17 U/L (15-37); BILIRUBIN,TOTAL 0.1 MG/DL (0.2-1.0); BLOOD UREA NITROGEN 20 mg/dL (7-18); CALCIUM 9.1 MG/DL (8.5-10.1); CARBON DIOXIDE 33 MMOL/L (21-32); CHLORIDE 97 MMOL/L (98-107); CREATININE 0.7 MG/DL (0.55-1.30); POTASSIUM 4.5 MMOL/L (3.5-5.1); SODIUM 133 MMOL/L (136-145)
[2018-09-09 08:30] VITALS: BP 159/81
[2018-09-09] MEDS ORDERED: Albuterol/Ipratropium 3ml neb HHN PRN (09:00)
[2018-09-09] MEDS ORDERED: Aspirin Baby 81mg GT SCH (09:00)
[2018-09-09] MEDS: Aspirin Baby 81mg GT SCH (09:51)
[2018-09-09] MEDS: levETIRAcetam 500mg/5ml Liquid GT SCH ×2 (09:51→21:16)
--- NOTE | 2018-09-09 10:02 | Urology Progress Note ---
Assessment/Plan Assessment/Plan 1. Urinary retention with chronic suprapubic tube. 2. Benign prostatic hypertrophy history. 3. Neurogenic bladder. 4. Urinary tract infection and colonization. 5. Hematuria. 6. Proteinuria. keep SP tube, last exchanged 08/23 hand irrigate PRN cont with abx as ordered cysto later consider recheck urine cx at some point Subjective Allergies: Coded Allergies: No Known Allergies (Unverified , 06/17/18) Subjective all noted, peritoneal cath removed 09/01, moved to step down Objective Last 24 Hour Vital Signs Date Time Temp Pulse Resp B/P (MAP) Pulse Ox O2 Delivery O2 Flow Rate FiO2 09/09/18 09:00 Bi-pap 09/09/18 08:46 67 20 98 Facial 35 09/09/18 08:30 89 14 159/81 (107) 97 09/09/18 08:00 97.3 89 14 171/99 (123) 97 97.3 09/09/18 07:05 76 25 95 Facial 35 09/09/18 06:30 76 24 Nasal Cannula 2.0 28 09/09/18 06:30 95 Nasal Cannula 2.0 28 09/09/18 06:30 Nasal Cannula 2.0 28 09/09/18 05:25 75 20 98 Full Face 35 09/09/18 04:45 97.3 75 14 158/82 (107) 98 97.3 09/09/18 03:05 81 18 97 Full Face 35 09/09/18 01:03 67 19 98 Full Face 35 09/09/18 00:00 98.0 81 21 152/83 (106) 97 98.0 09/08/18 22:50 82 22 99 Full Face 35 09/08/18 21:13 Nasal Cannula 2.0 09/08/18 20:08 98.1 91 20 148/79 (102) 94 98.1 09/08/18 19:05 95 Nasal Cannula 2.0 28 09/08/18 19:05 Nasal Cannula 2.0 28 09/08/18 19:04 87 20 Nasal Cannula 2.0 28 09/08/18 16:00 98.0 80 22 136/108 (117) 98 98.0 09/08/18 15:30 71 09/08/18 12:00 98.1 56 24 158/69 (98) 97 98.1 09/08/18 11:40 59 Intake and Output 09/08/18 09/09/18 19:00 07:00 Intake Total 775 ml 815.0 ml Output Total 400 ml Balance 775 ml 415.0 ml Intake Free Water 60 ml 120 ml IV Total 110.0 ml Tube Feeding 715 ml 585 ml Output Urine Total 400 ml Microbiology Date/Time Source Procedure Growth Status 08/21/18 15:15 Blood Blood Culture - Final NO GROWTH AFTER 5 DAYS Complete 08/23/18 18:45 Wound Gram Stain - Final Complete 08/23/18 18:45 Wound Culture - Final Staphylococcus Aureus - Mrsa Complete 08/23/18 11:30 Sputum Gram Stain - Final Complete 08/23/18 11:30 Sputum Sputum Culture - Final NORMAL UPPER RESPIRATORY THEO PRESENT Complete 08/25/18 17:00 Stool Clostridium difficile Toxin Assay - Final Complete 08/21/18 15:15 Urine,Clean Catch Urine Culture - Final Providencia Stuartii Complete 09/01/18 15:56 Abdominal Abscess Gram Stain - Final Complete 09/01/18 15:56 Aerobic Culture - Final Escherichia Coli - Esbl Providencia Stuartii Usual Skin Theo Complete 09/01/18 15:56 Abdominal Abscess Anaerobic Culture - Final NO ANAEROBES ISOLATED Complete Current Medications Medications (Trade) Dose Ordered Sig/Benjamin Route PRN Reason Start Time Stop Time Status Last Admin Dose Admin Acetaminophen (Tylenol) 650 mg Q4H PRN ORAL Mild Pain/Temp > 100.5 09/09/18 09:00 09/27/18 08:59 Albuterol/ Ipratropium (Albuterol/ Ipratropium) 3 ml Q6H PRN HHN Bronchospasm 09/09/18 09:00 09/14/18 08:59 Aspirin (ASA) 81 mg DAILY GT 09/09/18 09:00 09/22/18 08:59 09/09/18 09:51 Dextrose (Dextrose 50%) 25 ml Q30M PRN IV Hypoglycemia 09/09/18 09:00 09/20/18 08:59 Dextrose (Dextrose 50%) 50 ml Q30M PRN IV Hypoglycemia 09/09/18 09:00 09/20/18 08:59 Ertapenem 1 gm/ Sodium Chloride 55 ml @ 110 mls/hr Q24H IVPB 09/09/18 12:00 09/11/18 11:59 UNV Heparin Sodium (Porcine) (Heparin 5000 units/ml) 5,000 units EVERY 12 HOURS SUBQ 09/09/18 09:00 09/20/18 20:59 Insulin Aspart (NovoLOG) EVERY 6 HOURS SUBQ 09/09/18 12:00 09/22/18 11:59 Lansoprazole (Prevacid) 30 mg DAILY GT 09/09/18 09:00 09/24/18 08:59 09/09/18 09:51 Levetiracetam (Keppra) 750 mg Q12HR GT 09/09/18 09:00 10/04/18 08:59 09/09/18 09:51 Levothyroxine Sodium (Synthroid) 125 mcg DAILY@0630 ORAL 09/10/18 06:30 09/23/18 06:29 Metronidazole (Flagyl) 500 mg Q8HR ORAL 09/09/18 14:00 09/11/18 10:09 Piperacillin Sod/ Tazobactam Sod 3.375 gm/Dextrose 110 ml @ 27.5 mls/hr EVERY 8 HOURS IVPB 09/09/18 14:00 09/11/18 10:09 UNV Laboratory Tests 09/08/18 12:30: White Blood Count 5.9, Red Blood Count 3.36L, Hemoglobin 10.1L, Hematocrit 31.1L , Mean Corpuscular Volume 93, Mean Corpuscular Hemoglobin 30.1, Mean Corpuscular Hemoglobin Concent 32.5, Red Cell Distribution Width 14.5, Platelet Count 422, Mean Platelet Volume 5.1L, Neutrophils (%) (Auto) 64.7, Lymphocytes ( %) (Auto) 23.3, Monocytes (%) (Auto) 9.2, Eosinophils (%) (Auto) 1.7, Basophils (%) (Auto) 1.1, Sodium Level 134L, Potassium Level 5.1, Chloride Level 98, Carbon Dioxide Level 33H, Anion Gap 3L, Blood Urea Nitrogen 16, Creatinine 0.7, Estimat Glomerular Filtration Rate , Glucose Level 148H, Calcium Level 9.4, Total Bilirubin 0.1L, Aspartate Amino Transf (AST/SGOT) 15, Alanine Aminotransferase (ALT/SGPT) 6L, Alkaline Phosphatase 86, Total Protein 8.0, Albumin 1.9L, Globulin 6.1, Albumin/Globulin Ratio 0.3L 09/08/18 19:15: White Blood Count 11.4#H, Red Blood Count 3.15L, Hemoglobin 9.8L, Hematocrit 29.9L, Mean Corpuscular Volume 95, Mean Corpuscular Hemoglobin 31.1H, Mean Corpuscular Hemoglobin Concent 32.8, Red Cell Distribution Width 14.7, Platelet Count 459H, Mean Platelet Volume 5.1L, Neutrophils (%) (Auto) 86.6H, Lymphocytes (%) (Auto) 8.1L, Monocytes (%) (Auto) 4.1, Eosinophils (%) (Auto) 0.3, Basophils (%) (Auto) 0.8, Sodium Level 135L, Potassium Level 4.3, Chloride Level 98, Carbon Dioxide Level 32, Anion Gap 6, Blood Urea Nitrogen 17, Creatinine 0.7, Estimat Glomerular Filtration Rate , Glucose Level 161H, Calcium Level 9.1, Total Bilirubin 0.1L, Aspartate Amino Transf (AST/SGOT) 15, Alanine Aminotransferase (ALT/SGPT) 7L, Alkaline Phosphatase 89, Total Protein 7.7, Albumin 2.0L, Globulin 5.7, Albumin/Globulin Ratio 0.4L 09/09/18 06:35: Arterial Blood pH 7.359, Arterial Blood Partial Pressure CO2 62.8*H, Arterial Blood Partial Pressure O2 72.2L, Arterial Blood HCO3 34.6H, Arterial Blood Oxygen Saturation 93.6L, Arterial Blood Base Excess 7.5H, Shawn Test Positive 09/09/18 07:15: White Blood Count 8.1, Red Blood Count 3.32L, Hemoglobin 10.2L, Hematocrit 31.1L , Mean Corpuscular Volume 94, Mean Corpuscular Hemoglobin 30.6, Mean Corpuscular Hemoglobin Concent 32.7, Red Cell Distribution Width 14.7, Platelet Count 425, Mean Platelet Volume 5.4L, Neutrophils (%) (Auto) , Lymphocytes (%) ( Auto) , Monocytes (%) (Auto) , Eosinophils (%) (Auto) , Basophils (%) (Auto) , Sodium Level 133L, Potassium Level 4.5, Chloride Level 97L, Carbon Dioxide Level 33H, Anion Gap 3L, Blood Urea Nitrogen 20H, Creatinine 0.7, Estimat Glomerular Filtration Rate , Glucose Level 209H, Calcium Level 9.1, Total Bilirubin 0.1L, Aspartate Amino Transf (AST/SGOT) 17, Alanine Aminotransferase ( ALT/SGPT) 6L, Alkaline Phosphatase 94, Total Protein 7.9, Albumin 1.8L, Globulin 6.1, Albumin/Globulin Ratio 0.3L, Differential Total Cells Counted 100 , Neutrophils % (Manual) 86H, Lymphocytes % (Manual) 10L, Monocytes % (Manual) 4 , Eosinophils % (Manual) 0, Basophils % (Manual) 0, Band Neutrophils 0, Platelet Estimate Adequate, Platelet Morphology Normal, Hypochromasia 1+, Anisocytosis 1+ Height (Feet): 5 Height (Inches): 5.00 Weight (Pounds): 128 Objective exam stable, urine clearing ALEJANDRO COLLIER Sep 09, 2018 10:02
[2018-09-09] MEDS ORDERED: Sterile Water Irrig 1000ml IRRIG ONE (10:11)
--- NOTE | 2018-09-09 10:32 | Infectious Diseases Prog Note ---
Assessment/Plan Assessment/Plan antibiotics : ertapenem A 1. peritoneal abscess s/p evacuation with providencia, e.coli 2. s/p removal of broken peritoneal catheter 3. leucocytosis resolved 4. diabetes mellitus 5. hypertension 6. dementia 7. respiratory failure p 1. continue ertapenem 3 more days 2. start iv vancomycin 3. sputum culture 4. will follow up cultures Subjective ROS Limited/Unobtainable: Yes Allergies: Coded Allergies: No Known Allergies (Unverified , 06/17/18) Objective Vital Signs Last 24 Hour Vital Signs Date Time Temp Pulse Resp B/P (MAP) Pulse Ox O2 Delivery O2 Flow Rate FiO2 09/09/18 09:00 Bi-pap 09/09/18 08:46 67 20 98 Facial 35 09/09/18 08:30 89 14 159/81 (107) 97 09/09/18 08:00 97.3 89 14 171/99 (123) 97 97.3 09/09/18 08:00 72 09/09/18 07:05 76 25 95 Facial 35 09/09/18 06:30 76 24 Nasal Cannula 2.0 28 09/09/18 06:30 95 Nasal Cannula 2.0 28 09/09/18 06:30 Nasal Cannula 2.0 28 09/09/18 05:25 75 20 98 Full Face 35 09/09/18 04:45 97.3 75 14 158/82 (107) 98 97.3 09/09/18 03:05 81 18 97 Full Face 35 09/09/18 01:03 67 19 98 Full Face 35 09/09/18 00:00 98.0 81 21 152/83 (106) 97 98.0 09/08/18 22:50 82 22 99 Full Face 35 09/08/18 21:13 Nasal Cannula 2.0 09/08/18 20:08 98.1 91 20 148/79 (102) 94 98.1 09/08/18 19:05 95 Nasal Cannula 2.0 28 09/08/18 19:05 Nasal Cannula 2.0 28 09/08/18 19:04 87 20 Nasal Cannula 2.0 28 09/08/18 16:00 98.0 80 22 136/108 (117) 98 98.0 09/08/18 15:30 71 09/08/18 12:00 98.1 56 24 158/69 (98) 97 98.1 09/08/18 11:40 59 Height (Feet): 5 Height (Inches): 5.00 Weight (Pounds): 128 HEENT: other - on bipap Respiratory/Chest: lungs clear Cardiovascular: normal rate, regular rhythm, no gallop/murmur Abdomen: soft, non tender, other - GT Extremities: no edema Laboratory Tests Test 09/08/18 12:30 09/08/18 19:15 09/09/18 06:35 09/09/18 07:15 White Blood Count 5.9 K/UL (4.8-10.8) 11.4 K/UL (4.8-10.8) #H 8.1 K/UL (4.8-10.8) Red Blood Count 3.36 M/UL (4.70-6.10) L 3.15 M/UL (4.70-6.10) L 3.32 M/UL (4.70-6.10) L Hemoglobin 10.1 G/DL (14.2-18.0) L 9.8 G/DL (14.2-18.0) L 10.2 G/DL (14.2-18.0) L Hematocrit 31.1 % (42.0-52.0) L 29.9 % (42.0-52.0) L 31.1 % (42.0-52.0) L Mean Corpuscular Volume 93 FL (80-99) 95 FL (80-99) 94 FL (80-99) Mean Corpuscular Hemoglobin 30.1 PG (27.0-31.0) 31.1 PG (27.0-31.0) H 30.6 PG (27.0-31.0) Mean Corpuscular Hemoglobin Concent 32.5 G/DL (32.0-36.0) 32.8 G/DL (32.0-36.0) 32.7 G/DL (32.0-36.0) Red Cell Distribution Width 14.5 % (11.6-14.8) 14.7 % (11.6-14.8) 14.7 % (11.6-14.8) Platelet Count 422 K/UL (150-450) 459 K/UL (150-450) H 425 K/UL (150-450) Mean Platelet Volume 5.1 FL (6.5-10.1) L 5.1 FL (6.5-10.1) L 5.4 FL (6.5-10.1) L Neutrophils (%) (Auto) 64.7 % (45.0-75.0) 86.6 % (45.0-75.0) H % (45.0-75.0) Lymphocytes (%) (Auto) 23.3 % (20.0-45.0) 8.1 % (20.0-45.0) L % (20.0-45.0) Monocytes (%) (Auto) 9.2 % (1.0-10.0) 4.1 % (1.0-10.0) % (1.0-10.0) Eosinophils (%) (Auto) 1.7 % (0.0-3.0) 0.3 % (0.0-3.0) % (0.0-3.0) Basophils (%) (Auto) 1.1 % (0.0-2.0) 0.8 % (0.0-2.0) % (0.0-2.0) Sodium Level 134 MMOL/L (136-145) L 135 MMOL/L (136-145) L 133 MMOL/L (136-145) L Potassium Level 5.1 MMOL/L (3.5-5.1) 4.3 MMOL/L (3.5-5.1) 4.5 MMOL/L (3.5-5.1) Chloride Level 98 MMOL/L (98-107) 98 MMOL/L (98-107) 97 MMOL/L (98-107) L Carbon Dioxide Level 33 MMOL/L (21-32) H 32 MMOL/L (21-32) 33 MMOL/L (21-32) H Anion Gap 3 mmol/L (5-15) L 6 mmol/L (5-15) 3 mmol/L (5-15) L Blood Urea Nitrogen 16 mg/dL (7-18) 17 mg/dL (7-18) 20 mg/dL (7-18) H Creatinine 0.7 MG/DL (0.55-1.30) 0.7 MG/DL (0.55-1.30) 0.7 MG/DL (0.55-1.30) Estimat Glomerular Filtration Rate mL/min (>60) mL/min (>60) mL/min (>60) Glucose Level 148 MG/DL (74-106) H 161 MG/DL (74-106) H 209 MG/DL (74-106) H Calcium Level 9.4 MG/DL (8.5-10.1) 9.1 MG/DL (8.5-10.1) 9.1 MG/DL (8.5-10.1) Total Bilirubin 0.1 MG/DL (0.2-1.0) L 0.1 MG/DL (0.2-1.0) L 0.1 MG/DL (0.2-1.0) L Aspartate Amino Transf (AST/SGOT) 15 U/L (15-37) 15 U/L (15-37) 17 U/L (15-37) Alanine Aminotransferase (ALT/SGPT) 6 U/L (12-78) L 7 U/L (12-78) L 6 U/L (12-78) L Alkaline Phosphatase 86 U/L (46-116) 89 U/L (46-116) 94 U/L (46-116) Total Protein 8.0 G/DL (6.4-8.2) 7.7 G/DL (6.4-8.2) 7.9 G/DL (6.4-8.2) Albumin 1.9 G/DL (3.4-5.0) L 2.0 G/DL (3.4-5.0) L 1.8 G/DL (3.4-5.0) L Globulin 6.1 g/dL 5.7 g/dL 6.1 g/dL Albumin/Globulin Ratio 0.3 (1.0-2.7) L 0.4 (1.0-2.7) L 0.3 (1.0-2.7) L Arterial Blood pH 7.359 (7.350-7.450) Arterial Blood Partial Pressure CO2 62.8 mmHg (35.0-45.0) *H Arterial Blood Partial Pressure O2 72.2 mmHg (75.0-100.0) L Arterial Blood HCO3 34.6 mmol/L (22.0-26.0) H Arterial Blood Oxygen Saturation 93.6 % (95-100) L Arterial Blood Base Excess 7.5 (-2-2) H Shawn Test Positive Differential Total Cells Counted 100 Neutrophils % (Manual) 86 % (45-75) H Lymphocytes % (Manual) 10 % (20-45) L Monocytes % (Manual) 4 % (1-10) Eosinophils % (Manual) 0 % (0-3) Basophils % (Manual) 0 % (0-2) Band Neutrophils 0 % (0-8) Platelet Estimate Adequate Platelet Morphology Normal Hypochromasia 1+ Anisocytosis 1+ Current Medications Medications (Trade) Dose Ordered Sig/Benjamin Route PRN Reason Start Time Stop Time Status Last Admin Dose Admin Acetaminophen (Tylenol) 650 mg Q4H PRN ORAL Mild Pain/Temp > 100.5 09/09/18 09:00 09/27/18 08:59 Albuterol/ Ipratropium (Albuterol/ Ipratropium) 3 ml Q6H PRN HHN Bronchospasm 09/09/18 09:00 09/14/18 08:59 Aspirin (ASA) 81 mg DAILY GT 09/09/18 09:00 09/22/18 08:59 09/09/18 09:51 Dextrose (Dextrose 50%) 25 ml Q30M PRN IV Hypoglycemia 09/09/18 09:00 09/20/18 08:59 Dextrose (Dextrose 50%) 50 ml Q30M PRN IV Hypoglycemia 09/09/18 09:00 09/20/18 08:59 Ertapenem 1 gm/ Sodium Chloride 55 ml @ 110 mls/hr Q24H IVPB 09/09/18 12:00 09/11/18 11:59 Heparin Sodium (Porcine) (Heparin 5000 units/ml) 5,000 units EVERY 12 HOURS SUBQ 09/09/18 09:00 09/20/18 20:59 Insulin Aspart (NovoLOG) EVERY 6 HOURS SUBQ 09/09/18 12:00 09/22/18 11:59 Lansoprazole (Prevacid) 30 mg DAILY GT 09/09/18 09:00 09/24/18 08:59 09/09/18 09:51 Levetiracetam (Keppra) 750 mg Q12HR GT 09/09/18 09:00 10/04/18 08:59 09/09/18 09:51 Levothyroxine Sodium (Synthroid) 125 mcg DAILY@0630 ORAL 09/10/18 06:30 09/23/18 06:29 Metronidazole (Flagyl) 500 mg Q8HR ORAL 09/09/18 14:00 09/11/18 10:09 Piperacillin Sod/ Tazobactam Sod 3.375 gm/Dextrose 110 ml @ 27.5 mls/hr EVERY 8 HOURS IVPB 09/09/18 14:00 09/11/18 10:09 Barbra Oshea MD Sep 09, 2018 10:32
[2018-09-09] MEDS: Heparin 5000 units/ml inj SUBQ SCH ×2 (10:40→21:18)
--- NOTE | 2018-09-09 11:49 | Diagnostic Imaging Report ---
Indications: Altered level of consciousness Technique: Spiral acquisitions obtained through the brain. Angled axial and coronal 5 x 5 mm slices were reconstructed. Total dose length product 1390.16 mGycm. CTDI vol(s) 70.38 mGy. Dose reduction achieved using automated exposure control Comparison: None. Findings: There is a large area of encephalomalacia involving the right frontal, temporal, and parietal. There is also encephalomalacia of the right occipital lobe and adjacent posterior parasagittal parietal lobe. This results in ex vacuo dilatation of the right lateral ventricle. There is generalized age-related enlargement of ventricles and extra axial CSF spaces. There is periventricular deep white matter low-attenuation, consistent with chronic ischemic change No acute intracranial hemorrhage or edema, mass effect, nor midline shift. There is evidence of prior bilateral cataract surgery. The mastoids are clear. The calvarium is intact. 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
[2018-09-09] MEDS ORDERED: Vancomycin 1.5 GM/D5W 250ML IVPB ONE (12:00)
[2018-09-09] MEDS: Ertapenem 1 GM in NS 55 ML IVPB SCH ×2 (12:00→12:48)
[2018-09-09] MEDS ORDERED: Ertapenem 1 GM in NS 55 ML IVPB SCH (12:00)
[2018-09-09] MEDS ORDERED: Piperacillin/Tazobactam 3.375 GM in D5W 110 ML IVPB SCH (14:00)
[2018-09-09] MEDS ORDERED: metroNIDAZOLE 500mg tab ORAL SCH (14:00)
[2018-09-09 16:00] VITALS: BP 163/76
--- NOTE | 2018-09-09 19:16 | Pulmonology Progress Note ---
Assessment/Plan Assessment/Plan Assessment/Plan IMPRESSION: 1. Respiratory failure, acute, improved 2. Previous Sepsis with shock. 3. Dysphagia. 4. G-tube. 5. CVA. 6. Altered mental status. 7. Aspiration pneumonia 8. Severe protein-calorie malnutrition. 9. Diabetes. PLAN: respiratory care as is aspiration precautions noted antibiotics noted and cultures reviewed imaging noted; repeat noted and will order for this week close follow up for change DVT prophylaxis dc planning in progress impression, plan, and exam edited and reviewed in detail care discussed with RN Subjective Allergies: Coded Allergies: No Known Allergies (Unverified , 06/17/18) Subjective reviewed care care noted confused at baseline on antibiotics Objective Last 24 Hour Vital Signs Date Time Temp Pulse Resp B/P (MAP) Pulse Ox O2 Delivery O2 Flow Rate FiO2 09/06/18 12:00 97.3 63 20 129/69 (89) 99 97.3 09/06/18 09:00 Nasal Cannula 2.0 09/06/18 08:00 97.0 57 20 138/74 (95) 98 97.0 09/06/18 07:41 56 09/06/18 06:56 98 Nasal Cannula 2.0 28 09/06/18 06:56 68 18 Nasal Cannula 2.0 28 09/06/18 06:56 Nasal Cannula 2.0 28 09/06/18 05:43 55 26 92 Full Face 35 09/06/18 04:00 97.5 58 17 134/72 (92) 98 97.5 09/06/18 04:00 60 09/06/18 03:42 56 20 98 Facial 35 09/06/18 01:33 54 19 100 Facial 35 09/06/18 00:00 53 09/06/18 00:00 98.1 53 18 123/65 (84) 98 98.1 09/05/18 23:23 56 21 98 Facial 35 09/05/18 22:08 65 21 98 Facial 35 09/05/18 21:00 Nasal Cannula 2.0 09/05/18 20:55 98 Nasal Cannula 2.0 28 09/05/18 20:55 61 18 Nasal Cannula 2.0 28 09/05/18 20:55 Nasal Cannula 2.0 28 09/05/18 20:00 97.9 63 17 127/61 (83) 96 97.9 09/05/18 20:00 61 09/05/18 16:00 97.3 63 24 129/64 (85) 98 97.3 09/05/18 15:12 61 Intake and Output 09/05/18 09/06/18 19:00 07:00 Intake Total 270 ml 400 ml Output Total 400 ml 800 ml Balance -130 ml -400 ml Intake Free Water 100 ml Tube Feeding 270 ml 300 ml Output Urine Total 400 ml 800 ml Objective GENERAL: Ill-appearing male, withdrawn, nonverbal. ALOC LUNGS: occasional rhonchi, moderate air entry, symmetric. CARDIAC: Normal S1, S2. RRR without murmurs, rubs, or gallops. ABDOMEN: Soft, nontender, nondistended. no distention; no HSM EXTREMITIES: No cyanosis or clubbing. no edema SKIN: noted GENITOURINARY: suprapubic catheter. NEUROLOGIC: Neurologically overall same nonverbal at present reviewed and edited Laboratory Tests 09/06/18 06:15: White Blood Count 3.7L, Red Blood Count 3.14L, Hemoglobin 9.5L, Hematocrit 29.6L , Mean Corpuscular Volume 94, Mean Corpuscular Hemoglobin 30.2, Mean Corpuscular Hemoglobin Concent 32.1, Red Cell Distribution Width 15.4H, Platelet Count 356, Mean Platelet Volume 5.1L, Neutrophils (%) (Auto) 62.6, Lymphocytes (%) (Auto) 21.5, Monocytes (%) (Auto) 9.7, Eosinophils (%) (Auto) 4.8H, Basophils (%) (Auto) 1.4, Sodium Level 135L, Potassium Level 4.3, Chloride Level 99, Carbon Dioxide Level 30, Anion Gap 6, Blood Urea Nitrogen 14 , Creatinine 0.7, Estimat Glomerular Filtration Rate , Glucose Level 146H, Calcium Level 9.0, Magnesium Level 2.0, Total Bilirubin 0.1L, Aspartate Amino Transf (AST/SGOT) 15, Alanine Aminotransferase (ALT/SGPT) < 6L, Alkaline Phosphatase 80, Total Protein 7.1, Albumin 1.6L, Globulin 5.5, Albumin/Globulin Ratio 0.3L Current Medications Medications (Trade) Dose Ordered Sig/Benjamin Route PRN Reason Start Time Stop Time Status Last Admin Dose Admin Acetaminophen (Tylenol) 650 mg Q4H PRN ORAL Mild Pain/Temp > 100.5 08/28/18 09:00 11/6/18 08:59 08/28/18 10:16 Aspirin (ASA) 81 mg DAILY GT 08/23/18 09:00 09/22/18 08:59 09/06/18 08:59 Dextrose (Dextrose 50%) 25 ml Q30M PRN IV Hypoglycemia 08/21/18 20:00 09/20/18 19:59 Dextrose (Dextrose 50%) 50 ml Q30M PRN IV Hypoglycemia 08/21/18 20:00 09/20/18 19:59 Ertapenem 1 gm/ Sodium Chloride 55 ml @ 110 mls/hr Q24H IVPB 09/06/18 12:00 09/11/18 11:59 09/06/18 12:36 Heparin Sodium (Porcine) (Heparin 5000 units/ml) 5,000 units EVERY 12 HOURS SUBQ 08/21/18 21:00 09/20/18 20:59 09/06/18 09:00 Insulin Aspart (NovoLOG) EVERY 6 HOURS SUBQ 08/23/18 12:00 09/22/18 11:59 09/06/18 12:37 Lansoprazole (Prevacid) 30 mg DAILY GT 08/25/18 09:00 09/24/18 08:59 09/06/18 08:59 Levetiracetam (Keppra) 750 mg Q12HR GT 09/04/18 09:00 10/04/18 08:59 09/06/18 08:59 Levothyroxine Sodium (Synthroid) 125 mcg DAILY@0630 ORAL 08/24/18 06:30 09/23/18 06:29 09/06/18 06:04 Subjective ROS Limited/Unobtainable: No Allergies: Coded Allergies: No Known Allergies (Unverified , 06/17/18) Objective Last 24 Hour Vital Signs Date Time Temp Pulse Resp B/P (MAP) Pulse Ox O2 Delivery O2 Flow Rate FiO2 09/09/18 19:05 63 22 100 Full Face 35 09/09/18 19:04 Bi-pap 35 09/09/18 19:03 100 Bi-pap 35 09/09/18 19:02 63 22 Bi-pap 35 09/09/18 16:53 68 24 100 Facial 35 09/09/18 16:17 Bi-pap 09/09/18 16:12 57 09/09/18 16:00 98.0 59 16 163/76 (105) 100 98.0 09/09/18 15:07 59 16 99 Facial 35 09/09/18 12:46 64 26 99 Facial 35 09/09/18 12:30 63 09/09/18 11:25 63 25 100 Facial 35 09/09/18 09:00 Bi-pap 09/09/18 08:46 67 20 98 Facial 35 09/09/18 08:30 89 14 159/81 (107) 97 09/09/18 08:00 97.3 89 14 171/99 (123) 97 97.3 09/09/18 08:00 72 09/09/18 07:05 76 25 95 Facial 35 09/09/18 06:30 76 24 Nasal Cannula 2.0 28 09/09/18 06:30 95 Nasal Cannula 2.0 28 09/09/18 06:30 Nasal Cannula 2.0 28 09/09/18 05:25 75 20 98 Full Face 35 09/09/18 04:45 97.3 75 14 158/82 (107) 98 97.3 09/09/18 03:05 81 18 97 Full Face 35 09/09/18 01:03 67 19 98 Full Face 35 09/09/18 00:00 98.0 81 21 152/83 (106) 97 98.0 09/08/18 22:50 82 22 99 Full Face 35 09/08/18 21:13 Nasal Cannula 2.0 09/08/18 20:08 98.1 91 20 148/79 (102) 94 98.1 Intake and Output 09/08/18 09/09/18 19:00 07:00 Intake Total 775 ml 925.0 ml Output Total 400 ml Balance 775 ml 525.0 ml Intake Free Water 60 ml 120 ml IV Total 220.0 ml Tube Feeding 715 ml 585 ml Output Urine Total 400 ml Microbiology Date/Time Source Procedure Growth Status 09/08/18 22:00 Wound Gram Stain - Final Resulted 09/08/18 22:00 Wound Wound Culture Pending Resulted Laboratory Tests 09/09/18 06:35: Arterial Blood pH 7.359, Arterial Blood Partial Pressure CO2 62.8*H, Arterial Blood Partial Pressure O2 72.2L, Arterial Blood HCO3 34.6H, Arterial Blood Oxygen Saturation 93.6L, Arterial Blood Base Excess 7.5H, Shawn Test Positive 09/09/18 07:15: White Blood Count 8.1, Red Blood Count 3.32L, Hemoglobin 10.2L, Hematocrit 31.1L , Mean Corpuscular Volume 94, Mean Corpuscular Hemoglobin 30.6, Mean Corpuscular Hemoglobin Concent 32.7, Red Cell Distribution Width 14.7, Platelet Count 425, Mean Platelet Volume 5.4L, Neutrophils (%) (Auto) , Lymphocytes (%) ( Auto) , Monocytes (%) (Auto) , Eosinophils (%) (Auto) , Basophils (%) (Auto) , Differential Total Cells Counted 100, Neutrophils % (Manual) 86H, Lymphocytes % (Manual) 10L, Monocytes % (Manual) 4, Eosinophils % (Manual) 0, Basophils % ( Manual) 0, Band Neutrophils 0, Platelet Estimate Adequate, Platelet Morphology Normal, Hypochromasia 1+, Anisocytosis 1+, Sodium Level 133L, Potassium Level 4.5, Chloride Level 97L, Carbon Dioxide Level 33H, Anion Gap 3L, Blood Urea Nitrogen 20H, Creatinine 0.7, Estimat Glomerular Filtration Rate , Glucose Level 209H, Calcium Level 9.1, Total Bilirubin 0.1L, Aspartate Amino Transf (AST /SGOT) 17, Alanine Aminotransferase (ALT/SGPT) 6L, Alkaline Phosphatase 94, Total Protein 7.9, Albumin 1.8L, Globulin 6.1, Albumin/Globulin Ratio 0.3L Current Medications Medications (Trade) Dose Ordered Sig/Benjamin Route PRN Reason Start Time Stop Time Status Last Admin Dose Admin Acetaminophen (Tylenol) 650 mg Q4H PRN ORAL Mild Pain/Temp > 100.5 09/09/18 09:00 09/27/18 08:59 Albuterol/ Ipratropium (Albuterol/ Ipratropium) 3 ml Q6H PRN HHN Bronchospasm 09/09/18 09:00 09/14/18 08:59 Aspirin (ASA) 81 mg DAILY GT 09/09/18 09:00 09/22/18 08:59 09/09/18 09:51 Dextrose (Dextrose 50%) 25 ml Q30M PRN IV Hypoglycemia 09/09/18 09:00 09/20/18 08:59 Dextrose (Dextrose 50%) 50 ml Q30M PRN IV Hypoglycemia 09/09/18 09:00 09/20/18 08:59 Ertapenem 1 gm/ Sodium Chloride 55 ml @ 110 mls/hr Q24H IVPB 09/09/18 12:00 09/11/18 11:59 09/09/18 12:48 Heparin Sodium (Porcine) (Heparin 5000 units/ml) 5,000 units EVERY 12 HOURS SUBQ 09/09/18 09:00 09/20/18 20:59 09/09/18 10:40 Insulin Aspart (NovoLOG) EVERY 6 HOURS SUBQ 09/09/18 12:00 09/22/18 11:59 09/09/18 17:47 Lansoprazole (Prevacid) 30 mg DAILY GT 09/09/18 09:00 09/24/18 08:59 09/09/18 09:51 Levetiracetam (Keppra) 750 mg Q12HR GT 09/09/18 09:00 10/04/18 08:59 09/09/18 09:51 Levothyroxine Sodium (Synthroid) 125 mcg DAILY@0630 ORAL 09/10/18 06:30 09/23/18 06:29 Vancomycin HCl (Vanco rx to dose) 1 ea DAILY PRN MISC . 09/09/18 10:45 10/09/18 10:44 Vancomycin HCl 1 gm/Dextrose 275 ml @ 183.708 mls/hr Q24H IVPB 09/10/18 12:00 09/15/18 11:59 Bryon Carlson MD Sep 09, 2018 19:16
[2018-09-09 20:00] VITALS: BP 135/74
[2018-09-10] VITALS: BP 152/70
[2018-09-10] MEDS: NovoLOG Insulin Flexpen SUBQ SCH ×4 (00:30→17:48)
[2018-09-10 04:00] VITALS: BP 154/74
[2018-09-10] MEDS: Levothyroxine 125mcg tab ORAL SCH (06:21)
[2018-09-10 08:00] VITALS: BP 142/79
--- NOTE | 2018-09-10 09:04 | Urology Progress Note ---
Assessment/Plan Assessment/Plan 1. Urinary retention with chronic suprapubic tube. 2. Benign prostatic hypertrophy history. 3. Neurogenic bladder. 4. Urinary tract infection and colonization. 5. Hematuria. 6. Proteinuria. keep SP tube, last exchanged 08/23 hand irrigated and do PRN cont with abx as ordered cysto later consider recheck urine cx at some point d/w pt family Subjective Allergies: Coded Allergies: No Known Allergies (Unverified , 06/17/18) Subjective all noted, peritoneal cath removed 09/01, moved to step down Objective Last 24 Hour Vital Signs Date Time Temp Pulse Resp B/P (MAP) Pulse Ox O2 Delivery O2 Flow Rate FiO2 09/10/18 07:41 64 09/10/18 05:06 70 23 100 Full Face 32 09/10/18 04:00 Bi-pap 09/10/18 04:00 32 09/10/18 04:00 97.1 62 18 154/74 (100) 100 97.1 09/10/18 04:00 65 09/10/18 03:09 73 17 99 Full Face 32 09/10/18 01:00 67 21 100 Full Face 32 09/10/18 00:21 Bi-pap 09/10/18 00:00 57 09/10/18 00:00 35 09/10/18 00:00 97.1 59 16 152/70 (97) 100 97.1 09/09/18 22:46 58 23 98 Full Face 35 09/09/18 21:05 64 23 99 Full Face 35 09/09/18 20:00 35 09/09/18 20:00 54 09/09/18 20:00 97.8 59 18 135/74 (94) 100 97.8 09/09/18 20:00 Bi-pap 09/09/18 19:05 63 22 100 Full Face 35 09/09/18 19:04 Bi-pap 35 09/09/18 19:03 100 Bi-pap 35 09/09/18 19:02 63 22 Bi-pap 35 09/09/18 16:53 68 24 100 Facial 35 09/09/18 16:17 Bi-pap 09/09/18 16:12 57 09/09/18 16:00 98.0 59 16 163/76 (105) 100 98.0 09/09/18 15:07 59 16 99 Facial 35 09/09/18 12:46 64 26 99 Facial 35 09/09/18 12:30 63 09/09/18 11:25 63 25 100 Facial 35 Intake and Output 09/09/18 09/10/18 19:00 07:00 Intake Total 600 ml 800 ml Output Total 450 ml 600 ml Balance 150 ml 200 ml Intake Free Water 100 ml 150 ml IV Total 110 ml Tube Feeding 390 ml 650 ml Output Urine Total 450 ml 600 ml Microbiology Date/Time Source Procedure Growth Status 09/08/18 19:20 Blood Blood Culture - Preliminary NO GROWTH AFTER 24 HOURS Resulted 09/08/18 22:00 Wound Gram Stain - Final Resulted 09/08/18 22:00 Wound Wound Culture Pending Resulted 09/09/18 15:20 Sputum Gram Stain - Final Resulted 09/09/18 15:20 Sputum Sputum Culture Pending Resulted 08/25/18 17:00 Stool Clostridium difficile Toxin Assay - Final Complete 08/21/18 15:15 Urine,Clean Catch Urine Culture - Final Providencia Stuartii Complete 09/01/18 15:56 Abdominal Abscess Gram Stain - Final Complete 09/01/18 15:56 Aerobic Culture - Final Escherichia Coli - Esbl Providencia Stuartii Usual Skin Krissy Complete 09/01/18 15:56 Abdominal Abscess Anaerobic Culture - Final NO ANAEROBES ISOLATED Complete Current Medications Medications (Trade) Dose Ordered Sig/Benjamin Route PRN Reason Start Time Stop Time Status Last Admin Dose Admin Acetaminophen (Tylenol) 650 mg Q4H PRN ORAL Mild Pain/Temp > 100.5 09/09/18 09:00 09/27/18 08:59 Albuterol/ Ipratropium (Albuterol/ Ipratropium) 3 ml Q6H PRN HHN Bronchospasm 09/09/18 09:00 09/14/18 08:59 Aspirin (ASA) 81 mg DAILY GT 09/09/18 09:00 09/22/18 08:59 09/09/18 09:51 Dextrose (Dextrose 50%) 25 ml Q30M PRN IV Hypoglycemia 09/09/18 09:00 09/20/18 08:59 Dextrose (Dextrose 50%) 50 ml Q30M PRN IV Hypoglycemia 09/09/18 09:00 09/20/18 08:59 Ertapenem 1 gm/ Sodium Chloride 55 ml @ 110 mls/hr Q24H IVPB 09/09/18 12:00 09/11/18 11:59 09/09/18 12:48 Heparin Sodium (Porcine) (Heparin 5000 units/ml) 5,000 units EVERY 12 HOURS SUBQ 09/09/18 09:00 09/20/18 20:59 09/09/18 21:18 Insulin Aspart (NovoLOG) EVERY 6 HOURS SUBQ 09/09/18 12:00 09/22/18 11:59 09/10/18 06:20 Lansoprazole (Prevacid) 30 mg DAILY GT 09/09/18 09:00 09/24/18 08:59 09/09/18 09:51 Levetiracetam (Keppra) 750 mg Q12HR GT 09/09/18 09:00 10/04/18 08:59 09/09/18 21:16 Levothyroxine Sodium (Synthroid) 125 mcg DAILY@0630 ORAL 09/10/18 06:30 09/23/18 06:29 09/10/18 06:21 Vancomycin HCl (Vanco rx to dose) 1 ea DAILY PRN MISC . 09/09/18 10:45 10/09/18 10:44 Vancomycin HCl 1 gm/Dextrose 275 ml @ 183.708 mls/hr Q24H IVPB 09/10/18 12:00 09/15/18 11:59 Height (Feet): 5 Height (Inches): 5.00 Weight (Pounds): 128 Objective exam stable, urine clearing head CT noted ALEJANDRO COLLIER Sep 10, 2018 09:04
[2018-09-10] MEDS: Aspirin Baby 81mg GT SCH (09:50)
[2018-09-10] MEDS: levETIRAcetam 500mg/5ml Liquid GT SCH ×2 (09:51→20:30)
[2018-09-10] MEDS: Heparin 5000 units/ml inj SUBQ SCH ×2 (09:52→20:32)
[2018-09-10] MEDS ORDERED: Tubing IV Secondary IV ONE (10:23)
[2018-09-10] MEDS ORDERED: NS 275ml ONE (10:23)
--- NOTE | 2018-09-10 10:43 | Pulmonology Progress Note ---
Assessment/Plan Assessment/Plan IMPRESSION: 1. Respiratory failure, resolved 2. Sepsis with shock. improved 3. Dysphagia. 4. G-tube. 5. CVA. 6. Altered mental status. 7. Aspiration pneumonia 8. Severe protein-calorie malnutrition. 9. Diabetes. PLAN respiratory care without needed changes aspiration precautions noted antibiotics management reviewed imaging noted; repeat as needed close follow up for change DVT prophylaxis dc planning in progress impression, plan, and exam edited and reviewed in detail care discussed with RN Subjective ROS Limited/Unobtainable: Yes Allergies: Coded Allergies: No Known Allergies (Unverified , 06/17/18) Subjective reviewed care care noted confused and same overall on antibiotics Objective Last 24 Hour Vital Signs Date Time Temp Pulse Resp B/P (MAP) Pulse Ox O2 Delivery O2 Flow Rate FiO2 09/10/18 10:11 2.0 32 09/10/18 08:00 97.0 73 18 142/79 (100) 99 97.0 09/10/18 08:00 Bi-pap 09/10/18 07:41 64 09/10/18 05:06 70 23 100 Full Face 32 09/10/18 04:00 Bi-pap 09/10/18 04:00 32 09/10/18 04:00 97.1 62 18 154/74 (100) 100 97.1 09/10/18 04:00 65 09/10/18 03:09 73 17 99 Full Face 32 09/10/18 01:00 67 21 100 Full Face 32 09/10/18 00:21 Bi-pap 09/10/18 00:00 57 09/10/18 00:00 35 09/10/18 00:00 97.1 59 16 152/70 (97) 100 97.1 09/09/18 22:46 58 23 98 Full Face 35 09/09/18 21:05 64 23 99 Full Face 35 09/09/18 20:00 35 09/09/18 20:00 54 09/09/18 20:00 97.8 59 18 135/74 (94) 100 97.8 09/09/18 20:00 Bi-pap 09/09/18 19:05 63 22 100 Full Face 35 09/09/18 19:04 Bi-pap 35 09/09/18 19:03 100 Bi-pap 35 09/09/18 19:02 63 22 Bi-pap 35 09/09/18 16:53 68 24 100 Facial 35 09/09/18 16:17 Bi-pap 09/09/18 16:12 57 09/09/18 16:00 98.0 59 16 163/76 (105) 100 98.0 09/09/18 15:07 59 16 99 Facial 35 09/09/18 12:46 64 26 99 Facial 35 09/09/18 12:30 63 09/09/18 11:25 63 25 100 Facial 35 Intake and Output 09/09/18 09/10/18 19:00 07:00 Intake Total 600 ml 800 ml Output Total 450 ml 600 ml Balance 150 ml 200 ml Intake Free Water 100 ml 150 ml IV Total 110 ml Tube Feeding 390 ml 650 ml Output Urine Total 450 ml 600 ml Objective GENERAL: Ill-appearing male, withdrawn, nonverbal. ALOC LUNGS: occasional rhonchi, moderate air entry, symmetric. CARDIAC: Normal S1, S2. RRR without murmurs, rubs, or gallops. ABDOMEN: Soft, nontender, nondistended. no distention; no HSM EXTREMITIES: No cyanosis or clubbing. no edema SKIN: noted GENITOURINARY: suprapubic catheter. NEUROLOGIC: Neurologically overall same nonverbal at present reviewed and edited Microbiology Date/Time Source Procedure Growth Status 09/08/18 19:20 Blood Blood Culture - Preliminary NO GROWTH AFTER 24 HOURS Resulted 09/08/18 19:15 Blood Blood Culture - Preliminary NO GROWTH AFTER 24 HOURS Resulted 09/08/18 22:00 Wound Gram Stain - Final Resulted 09/08/18 22:00 Wound Wound Culture Pending Resulted 09/09/18 15:20 Sputum Gram Stain - Final Resulted 09/09/18 15:20 Sputum Sputum Culture Pending Resulted Current Medications Medications (Trade) Dose Ordered Sig/Benjamin Route PRN Reason Start Time Stop Time Status Last Admin Dose Admin Acetaminophen (Tylenol) 650 mg Q4H PRN ORAL Mild Pain/Temp > 100.5 09/09/18 09:00 09/27/18 08:59 Albuterol/ Ipratropium (Albuterol/ Ipratropium) 3 ml Q6H PRN HHN Bronchospasm 09/09/18 09:00 09/14/18 08:59 Aspirin (ASA) 81 mg DAILY GT 09/09/18 09:00 09/22/18 08:59 09/10/18 09:50 Dextrose (Dextrose 50%) 25 ml Q30M PRN IV Hypoglycemia 09/09/18 09:00 09/20/18 08:59 Dextrose (Dextrose 50%) 50 ml Q30M PRN IV Hypoglycemia 09/09/18 09:00 09/20/18 08:59 Ertapenem 1 gm/ Sodium Chloride 55 ml @ 110 mls/hr Q24H IVPB 09/09/18 12:00 09/11/18 11:59 09/09/18 12:48 Heparin Sodium (Porcine) (Heparin 5000 units/ml) 5,000 units EVERY 12 HOURS SUBQ 09/09/18 09:00 09/20/18 20:59 09/10/18 09:52 Insulin Aspart (NovoLOG) EVERY 6 HOURS SUBQ 09/09/18 12:00 09/22/18 11:59 09/10/18 06:20 Lansoprazole (Prevacid) 30 mg DAILY GT 09/09/18 09:00 09/24/18 08:59 09/10/18 09:50 Levetiracetam (Keppra) 750 mg Q12HR GT 09/09/18 09:00 10/04/18 08:59 09/10/18 09:51 Levothyroxine Sodium (Synthroid) 125 mcg DAILY@0630 ORAL 09/10/18 06:30 09/23/18 06:29 09/10/18 06:21 Vancomycin HCl (Vanco rx to dose) 1 ea DAILY PRN MISC . 09/09/18 10:45 10/09/18 10:44 Vancomycin HCl 1 gm/Dextrose 275 ml @ 183.708 mls/hr Q24H IVPB 09/10/18 12:00 09/15/18 11:59 James Langston MD Sep 10, 2018 10:43
[2018-09-10 12:00] VITALS: BP 150/66
--- NOTE | 2018-09-10 12:02 | General Progress Note ---
Assessment/Plan Problem List: (1) UTI (urinary tract infection) ICD Codes: N39.0 - Urinary tract infection, site not specified SNOMED: 42731475 Qualifiers: Qualified Codes: T83.511A - Infection and inflammatory reaction due to indwelling urethral catheter, initial encounter; N39.0 - Urinary tract infection , site not specified (2) Severe sepsis ICD Codes: A41.9 - Sepsis, unspecified organism; R65.20 - Severe sepsis without septic shock SNOMED: 63094351 (3) NSTEMI (non-ST elevated myocardial infarction) ICD Codes: I21.4 - Non-ST elevation (NSTEMI) myocardial infarction SNOMED: 401997413 (4) Right lower lobe pneumonia ICD Codes: J18.1 - Lobar pneumonia, unspecified organism SNOMED: 392483254 Qualifiers: (5) Elevated lactic acid level ICD Codes: R79.89 - Other specified abnormal findings of blood chemistry SNOMED: 6009736 Status: stable Assessment/Plan monitor abg bipap per pulm cont abx per id jonathan care guarded Subjective Allergies: Coded Allergies: No Known Allergies (Unverified , 06/17/18) Subjective on bipap for resp acidosis. seems more responsive this am. CT with large old cva. Objective Last 24 Hour Vital Signs Date Time Temp Pulse Resp B/P (MAP) Pulse Ox O2 Delivery O2 Flow Rate FiO2 09/10/18 10:11 2.0 32 09/10/18 08:00 97.0 73 18 142/79 (100) 99 97.0 09/10/18 08:00 Bi-pap 09/10/18 07:41 64 09/10/18 05:06 70 23 100 Full Face 32 09/10/18 04:00 Bi-pap 09/10/18 04:00 32 09/10/18 04:00 97.1 62 18 154/74 (100) 100 97.1 09/10/18 04:00 65 09/10/18 03:09 73 17 99 Full Face 32 09/10/18 01:00 67 21 100 Full Face 32 09/10/18 00:21 Bi-pap 09/10/18 00:00 57 09/10/18 00:00 35 09/10/18 00:00 97.1 59 16 152/70 (97) 100 97.1 09/09/18 22:46 58 23 98 Full Face 35 09/09/18 21:05 64 23 99 Full Face 35 09/09/18 20:00 35 09/09/18 20:00 54 09/09/18 20:00 97.8 59 18 135/74 (94) 100 97.8 09/09/18 20:00 Bi-pap 09/09/18 19:05 63 22 100 Full Face 35 09/09/18 19:04 Bi-pap 35 09/09/18 19:03 100 Bi-pap 35 09/09/18 19:02 63 22 Bi-pap 35 09/09/18 16:53 68 24 100 Facial 35 09/09/18 16:17 Bi-pap 09/09/18 16:12 57 09/09/18 16:00 98.0 59 16 163/76 (105) 100 98.0 09/09/18 15:07 59 16 99 Facial 35 09/09/18 12:46 64 26 99 Facial 35 09/09/18 12:30 63 Intake and Output 09/09/18 09/10/18 19:00 07:00 Intake Total 600 ml 800 ml Output Total 450 ml 600 ml Balance 150 ml 200 ml Intake Free Water 100 ml 150 ml IV Total 110 ml Tube Feeding 390 ml 650 ml Output Urine Total 450 ml 600 ml Height (Feet): 5 Height (Inches): 5.00 Weight (Pounds): 128 Objective General Appearance: WD/WN, on bipap. opens eyes. moans/responds Neck: supple Cardiovascular: normal rate, regular rhythm Respiratory/Chest: chest wall non-tender, lungs with farhat rhonchi Abdomen: normal bowel sounds, non tender, soft, no organomegaly Neurologic: unresponsive, aphasia Michael Zuniga MD Sep 10, 2018 12:02
[2018-09-10] MEDS: Ertapenem 1 GM in NS 55 ML IVPB SCH (12:44)
[2018-09-10] MEDS: Vancomycin 1gm/D5W 275ml IVPB SCH ×2 (13:04)
[2018-09-10 13:24] LABS: HEMATOCRIT 28.5 % (42.0-52.0); HEMOGLOBIN 9.4 G/DL (14.2-18.0); MEAN CORPUSCULAR VOLUME 92 FL (80-99); PLATELET COUNT 381 K/UL (150-450); RED BLOOD COUNT 3.09 M/UL (4.70-6.10); RED CELL DISTRIBUTION WIDTH 14.8 % (11.6-14.8)
[2018-09-10 13:27] LABS: ALANINE AMINOTRANSFERASE 6 U/L (12-78); ALBUMIN 1.6 G/DL (3.4-5.0); ALBUMIN/GLOBULIN RATIO 0.3 (1.0-2.7); ALKALINE PHOSPHATASE 96 U/L (46-116); ANION GAP 5 mmol/L (5-15); ASPARTATE AMINO TRANSFERASE 17 U/L (15-37); BILIRUBIN,TOTAL 0.1 MG/DL (0.2-1.0); BLOOD UREA NITROGEN 18 mg/dL (7-18); CALCIUM 9.2 MG/DL (8.5-10.1); CARBON DIOXIDE 32 MMOL/L (21-32); CHLORIDE 96 MMOL/L (98-107); CREATININE 0.5 MG/DL (0.55-1.30); POTASSIUM 4.4 MMOL/L (3.5-5.1); SODIUM 133 MMOL/L (136-145)
[2018-09-10 16:00] VITALS: BP 133/70
[2018-09-10 20:00] VITALS: BP 123/59
[2018-09-11] VITALS: BP 117/60
[2018-09-11 04:00] VITALS: BP 136/63
[2018-09-11 04:30] LABS: ALANINE AMINOTRANSFERASE 12 U/L (12-78); ALBUMIN 1.9 G/DL (3.4-5.0); ALBUMIN/GLOBULIN RATIO 0.3 (1.0-2.7); ALKALINE PHOSPHATASE 115 U/L (46-116); ANION GAP 4 mmol/L (5-15); ASPARTATE AMINO TRANSFERASE 17 U/L (15-37); BILIRUBIN,TOTAL 0.2 MG/DL (0.2-1.0); BLOOD UREA NITROGEN 21 mg/dL (7-18); CALCIUM 9.6 MG/DL (8.5-10.1); CARBON DIOXIDE 33 MMOL/L (21-32); CHLORIDE 97 MMOL/L (98-107); CREATININE 0.6 MG/DL (0.55-1.30); POTASSIUM 4.7 MMOL/L (3.5-5.1); SODIUM 134 MMOL/L (136-145)
[2018-09-11] MEDS: Levothyroxine 125mcg tab ORAL SCH (05:51)
[2018-09-11] MEDS: NovoLOG Insulin Flexpen SUBQ SCH ×5 (05:53→23:55)
--- NOTE | 2018-09-11 07:49 | General Progress Note ---
Assessment/Plan Problem List: (1) UTI (urinary tract infection) ICD Codes: N39.0 - Urinary tract infection, site not specified SNOMED: 10912534 Qualifiers: Qualified Codes: T83.511A - Infection and inflammatory reaction due to indwelling urethral catheter, initial encounter; N39.0 - Urinary tract infection , site not specified (2) Severe sepsis ICD Codes: A41.9 - Sepsis, unspecified organism; R65.20 - Severe sepsis without septic shock SNOMED: 41504752 (3) NSTEMI (non-ST elevated myocardial infarction) ICD Codes: I21.4 - Non-ST elevation (NSTEMI) myocardial infarction SNOMED: 547505538 (4) Right lower lobe pneumonia ICD Codes: J18.1 - Lobar pneumonia, unspecified organism SNOMED: 284083033 Qualifiers: (5) Elevated lactic acid level ICD Codes: R79.89 - Other specified abnormal findings of blood chemistry SNOMED: 3263423 Assessment/Plan monitor abg bipap per pulm cont abx per id jonathan care stable currently and slightly improved Subjective ROS Limited/Unobtainable: No Constitutional: Reports: malaise, weakness HEENT: Reports: no symptoms Cardiovascular: Reports: no symptoms Respiratory: Reports: cough, shortness of breath Gastrointestinal/Abdominal: Reports: difficulty swallowing Genitourinary: Reports: no symptoms Neurologic/Psychiatric: Reports: no symptoms Endocrine: Reports: no symptoms Hematologic/Lymphatic: Reports: anemia Allergies: Coded Allergies: No Known Allergies (Unverified , 06/17/18) All Systems: reviewed and negative except above Subjective currently off bipap. more alert. follows some simple commands. Objective Last 24 Hour Vital Signs Date Time Temp Pulse Resp B/P (MAP) Pulse Ox O2 Delivery O2 Flow Rate FiO2 09/11/18 06:43 Nasal Cannula 2.0 28 09/11/18 06:43 96 Nasal Cannula 2.0 28 09/11/18 05:07 62 19 100 Full Face 35 09/11/18 04:00 98.1 60 19 136/63 (87) 100 98.1 09/11/18 04:00 Bi-pap 09/11/18 04:00 2.0 32 09/11/18 03:40 57 09/11/18 03:05 58 18 100 Full Face 35 09/11/18 01:00 60 23 99 Full Face 35 09/11/18 00:00 Bi-pap 09/11/18 00:00 2.0 32 09/11/18 00:00 98.2 53 17 117/60 (79) 100 98.2 09/10/18 23:31 57 09/10/18 22:51 54 14 100 Full Face 35 09/10/18 21:48 69 20 98 Full Face 35 09/10/18 20:00 97.9 69 20 123/59 (80) 98 97.9 09/10/18 20:00 Bi-pap 09/10/18 20:00 2.0 32 09/10/18 19:37 97 Nasal Cannula 2.0 28 09/10/18 19:37 Nasal Cannula 2.0 28 09/10/18 19:35 70 09/10/18 16:18 Bi-pap 09/10/18 16:18 2.0 32 09/10/18 16:00 72 09/10/18 16:00 97.1 75 24 133/70 (91) 100 97.1 09/10/18 13:58 2.0 32 09/10/18 12:00 97.5 69 24 150/66 (94) 100 97.5 09/10/18 12:00 71 09/10/18 12:00 Bi-pap 09/10/18 10:11 2.0 32 09/10/18 09:56 Nasal Cannula 2.0 28 09/10/18 09:55 98 Nasal Cannula 2.0 28 09/10/18 08:00 97.0 73 18 142/79 (100) 99 97.0 09/10/18 08:00 Bi-pap Intake and Output 09/10/18 09/11/18 19:00 07:00 Intake Total 800 ml Output Total 550 ml 425 ml Balance -550 ml 375 ml Intake Free Water 150 ml Tube Feeding 650 ml Output Urine Total 550 ml 425 ml Laboratory Tests 09/10/18 12:30: White Blood Count 12.0H, Red Blood Count 3.09L, Hemoglobin 9.4L, Hematocrit 28.5L, Mean Corpuscular Volume 92, Mean Corpuscular Hemoglobin 30.6, Mean Corpuscular Hemoglobin Concent 33.1, Red Cell Distribution Width 14.8, Platelet Count 381, Mean Platelet Volume 5.7L, Neutrophils (%) (Auto) , Lymphocytes (%) ( Auto) , Monocytes (%) (Auto) , Eosinophils (%) (Auto) , Basophils (%) (Auto) , Differential Total Cells Counted 100, Neutrophils % (Manual) 83H, Lymphocytes % (Manual) 5L, Monocytes % (Manual) 3, Eosinophils % (Manual) 0, Basophils % ( Manual) 0, Band Neutrophils 9H, Platelet Estimate Adequate, Platelet Morphology Normal, Anisocytosis 1+, Sodium Level 133L, Potassium Level 4.4, Chloride Level 96L, Carbon Dioxide Level 32, Anion Gap 5, Blood Urea Nitrogen 18, Creatinine 0.5L, Estimat Glomerular Filtration Rate , Glucose Level 165H, Calcium Level 9.2 , Total Bilirubin 0.1L, Aspartate Amino Transf (AST/SGOT) 17, Alanine Aminotransferase (ALT/SGPT) 6L, Alkaline Phosphatase 96, Total Protein 7.0, Albumin 1.6L, Globulin 5.4, Albumin/Globulin Ratio 0.3L 09/11/18 03:05: Sodium Level 134L, Potassium Level 4.7, Chloride Level 97L, Carbon Dioxide Level 33H, Anion Gap 4L, Blood Urea Nitrogen 21H, Creatinine 0.6, Estimat Glomerular Filtration Rate , Glucose Level 133H, Calcium Level 9.6, Total Bilirubin 0.2, Aspartate Amino Transf (AST/SGOT) 17, Alanine Aminotransferase ( ALT/SGPT) 12, Alkaline Phosphatase 115, Total Protein 7.6, Albumin 1.9L, Globulin 5.7, Albumin/Globulin Ratio 0.3L Height (Feet): 5 Height (Inches): 5.00 Weight (Pounds): 128 Objective General Appearance: WD/WN, on bipap. opens eyes. moans/responds Neck: supple Cardiovascular: normal rate, regular rhythm Respiratory/Chest: chest wall non-tender, lungs with farhat rhonchi Abdomen: normal bowel sounds, non tender, soft, no organomegaly Neurologic: unresponsive, aphasia Michael Zuniga MD Sep 11, 2018 07:49
[2018-09-11 08:00] VITALS: BP 144/61
[2018-09-11] MEDS ORDERED: NS 275ml ONE (08:38)
[2018-09-11] MEDS: Aspirin Baby 81mg GT SCH (08:44)
[2018-09-11] MEDS: levETIRAcetam 500mg/5ml Liquid GT SCH ×2 (08:44→21:10)
[2018-09-11] MEDS: Heparin 5000 units/ml inj SUBQ SCH ×2 (08:47→21:12)
--- NOTE | 2018-09-11 09:13 | Urology Progress Note ---
Assessment/Plan Assessment/Plan 1. Urinary retention with chronic suprapubic tube. 2. Benign prostatic hypertrophy history. 3. Neurogenic bladder. 4. Urinary tract infection and colonization. 5. Hematuria. 6. Proteinuria. keep SP tube, last exchanged 08/23 hand irrigated and do PRN cont with abx as ordered cysto later consider recheck urine cx at some point Subjective Allergies: Coded Allergies: No Known Allergies (Unverified , 06/17/18) Subjective all noted, peritoneal cath removed 09/01, moved to step down Objective Last 24 Hour Vital Signs Date Time Temp Pulse Resp B/P (MAP) Pulse Ox O2 Delivery O2 Flow Rate FiO2 09/11/18 06:43 Nasal Cannula 2.0 28 09/11/18 06:43 96 Nasal Cannula 2.0 28 09/11/18 05:07 62 19 100 Full Face 35 09/11/18 04:00 98.1 60 19 136/63 (87) 100 98.1 09/11/18 04:00 Bi-pap 09/11/18 04:00 2.0 32 09/11/18 03:40 57 09/11/18 03:05 58 18 100 Full Face 35 09/11/18 01:00 60 23 99 Full Face 35 09/11/18 00:00 Bi-pap 09/11/18 00:00 2.0 32 09/11/18 00:00 98.2 53 17 117/60 (79) 100 98.2 09/10/18 23:31 57 09/10/18 22:51 54 14 100 Full Face 35 09/10/18 21:48 69 20 98 Full Face 35 09/10/18 20:00 97.9 69 20 123/59 (80) 98 97.9 09/10/18 20:00 Bi-pap 09/10/18 20:00 2.0 32 09/10/18 19:37 97 Nasal Cannula 2.0 28 09/10/18 19:37 Nasal Cannula 2.0 28 09/10/18 19:35 70 09/10/18 16:18 Bi-pap 09/10/18 16:18 2.0 32 09/10/18 16:00 72 09/10/18 16:00 97.1 75 24 133/70 (91) 100 97.1 09/10/18 13:58 2.0 32 09/10/18 12:00 97.5 69 24 150/66 (94) 100 97.5 09/10/18 12:00 71 09/10/18 12:00 Bi-pap 09/10/18 10:11 2.0 32 09/10/18 09:56 Nasal Cannula 2.0 28 09/10/18 09:55 98 Nasal Cannula 2.0 28 Intake and Output 09/10/18 09/11/18 19:00 07:00 Intake Total 800 ml Output Total 550 ml 425 ml Balance -550 ml 375 ml Intake Free Water 150 ml Tube Feeding 650 ml Output Urine Total 550 ml 425 ml Microbiology Date/Time Source Procedure Growth Status 09/08/18 19:20 Blood Blood Culture - Preliminary NO GROWTH AFTER 48 HOURS Resulted 09/08/18 22:00 Wound Gram Stain - Final Resulted 09/08/18 22:00 Wound Culture - Preliminary Staphylococcus Aureus Staphylococcus Sp Coag Neg Resulted 09/09/18 15:20 Sputum Gram Stain - Final Resulted 09/09/18 15:20 Sputum Culture - Preliminary YEAST Usual Respiratory Krissy Resulted 08/25/18 17:00 Stool Clostridium difficile Toxin Assay - Final Complete 08/21/18 15:15 Urine,Clean Catch Urine Culture - Final Providencia Stuartii Complete 09/01/18 15:56 Abdominal Abscess Gram Stain - Final Complete 09/01/18 15:56 Aerobic Culture - Final Escherichia Coli - Esbl Providencia Stuartii Usual Skin Krissy Complete 09/01/18 15:56 Abdominal Abscess Anaerobic Culture - Final NO ANAEROBES ISOLATED Complete Current Medications Medications (Trade) Dose Ordered Sig/Benjamin Route PRN Reason Start Time Stop Time Status Last Admin Dose Admin Acetaminophen (Tylenol) 650 mg Q4H PRN ORAL Mild Pain/Temp > 100.5 09/09/18 09:00 09/27/18 08:59 Albuterol/ Ipratropium (Albuterol/ Ipratropium) 3 ml Q6H PRN HHN Bronchospasm 09/09/18 09:00 09/14/18 08:59 Aspirin (ASA) 81 mg DAILY GT 09/09/18 09:00 09/22/18 08:59 09/11/18 08:44 Dextrose (Dextrose 50%) 25 ml Q30M PRN IV Hypoglycemia 09/09/18 09:00 09/20/18 08:59 Dextrose (Dextrose 50%) 50 ml Q30M PRN IV Hypoglycemia 09/09/18 09:00 09/20/18 08:59 Ertapenem 1 gm/ Sodium Chloride 55 ml @ 110 mls/hr Q24H IVPB 09/09/18 12:00 09/11/18 11:59 09/10/18 12:44 Heparin Sodium (Porcine) (Heparin 5000 units/ml) 5,000 units EVERY 12 HOURS SUBQ 09/09/18 09:00 09/20/18 20:59 09/11/18 08:47 Insulin Aspart (NovoLOG) EVERY 6 HOURS SUBQ 09/09/18 12:00 09/22/18 11:59 09/11/18 05:53 Lansoprazole (Prevacid) 30 mg DAILY GT 09/09/18 09:00 09/24/18 08:59 09/11/18 08:44 Levetiracetam (Keppra) 750 mg Q12HR GT 09/09/18 09:00 10/04/18 08:59 09/11/18 08:44 Levothyroxine Sodium (Synthroid) 125 mcg DAILY@0630 ORAL 09/10/18 06:30 09/23/18 06:29 09/11/18 05:51 Vancomycin HCl (Vanco rx to dose) 1 ea DAILY PRN MISC . 09/09/18 10:45 10/09/18 10:44 Vancomycin HCl 1 gm/Dextrose 275 ml @ 183.708 mls/hr Q24H IVPB 09/10/18 12:00 09/15/18 11:59 09/10/18 13:04 Laboratory Tests 09/10/18 12:30: White Blood Count 12.0H, Red Blood Count 3.09L, Hemoglobin 9.4L, Hematocrit 28.5L, Mean Corpuscular Volume 92, Mean Corpuscular Hemoglobin 30.6, Mean Corpuscular Hemoglobin Concent 33.1, Red Cell Distribution Width 14.8, Platelet Count 381, Mean Platelet Volume 5.7L, Neutrophils (%) (Auto) , Lymphocytes (%) ( Auto) , Monocytes (%) (Auto) , Eosinophils (%) (Auto) , Basophils (%) (Auto) , Differential Total Cells Counted 100, Neutrophils % (Manual) 83H, Lymphocytes % (Manual) 5L, Monocytes % (Manual) 3, Eosinophils % (Manual) 0, Basophils % ( Manual) 0, Band Neutrophils 9H, Platelet Estimate Adequate, Platelet Morphology Normal, Anisocytosis 1+, Sodium Level 133L, Potassium Level 4.4, Chloride Level 96L, Carbon Dioxide Level 32, Anion Gap 5, Blood Urea Nitrogen 18, Creatinine 0.5L, Estimat Glomerular Filtration Rate , Glucose Level 165H, Calcium Level 9.2 , Total Bilirubin 0.1L, Aspartate Amino Transf (AST/SGOT) 17, Alanine Aminotransferase (ALT/SGPT) 6L, Alkaline Phosphatase 96, Total Protein 7.0, Albumin 1.6L, Globulin 5.4, Albumin/Globulin Ratio 0.3L 09/11/18 03:05: Sodium Level 134L, Potassium Level 4.7, Chloride Level 97L, Carbon Dioxide Level 33H, Anion Gap 4L, Blood Urea Nitrogen 21H, Creatinine 0.6, Estimat Glomerular Filtration Rate , Glucose Level 133H, Calcium Level 9.6, Total Bilirubin 0.2, Aspartate Amino Transf (AST/SGOT) 17, Alanine Aminotransferase ( ALT/SGPT) 12, Alkaline Phosphatase 115, Total Protein 7.6, Albumin 1.9L, Globulin 5.7, Albumin/Globulin Ratio 0.3L Height (Feet): 5 Height (Inches): 5.00 Weight (Pounds): 128 Objective exam stable, urine clearing head CT noted ALEJANDRO COLLIER Sep 11, 2018 09:13
--- NOTE | 2018-09-11 11:16 | Pulmonology Progress Note ---
Assessment/Plan Assessment/Plan IMPRESSION: 1. Respiratory failure, acute 2. Sepsis with shock. s/p 3. Dysphagia. 4. G-tube. 5. CVA. 6. Altered mental status. 7. Aspiration pneumonia 8. Severe protein-calorie malnutrition. 9. Diabetes. PLAN respiratory care -BIPAP as needed aspiration precautions noted check ABG check CXR antibiotics management reviewed imaging noted; repeat as needed close follow up for change hope to avoid intubation DVT prophylaxis dc planning in progress impression, plan, and exam edited and reviewed in detail care discussed with RN Subjective ROS Limited/Unobtainable: Yes Allergies: Coded Allergies: No Known Allergies (Unverified , 06/17/18) Subjective reviewed care on BIPAP respiratory distress confused and same overall on antibiotics Objective Last 24 Hour Vital Signs Date Time Temp Pulse Resp B/P (MAP) Pulse Ox O2 Delivery O2 Flow Rate FiO2 09/11/18 09:44 2.0 09/11/18 09:43 70 09/11/18 08:00 Bi-pap 09/11/18 08:00 98.8 62 20 144/61 (88) 100 98.8 09/11/18 06:43 Nasal Cannula 2.0 28 09/11/18 06:43 96 Nasal Cannula 2.0 28 09/11/18 05:07 62 19 100 Full Face 35 09/11/18 04:00 98.1 60 19 136/63 (87) 100 98.1 09/11/18 04:00 Bi-pap 09/11/18 04:00 2.0 32 09/11/18 03:40 57 09/11/18 03:05 58 18 100 Full Face 35 09/11/18 01:00 60 23 99 Full Face 35 09/11/18 00:00 Bi-pap 09/11/18 00:00 2.0 32 09/11/18 00:00 98.2 53 17 117/60 (79) 100 98.2 09/10/18 23:31 57 09/10/18 22:51 54 14 100 Full Face 35 09/10/18 21:48 69 20 98 Full Face 35 09/10/18 20:00 97.9 69 20 123/59 (80) 98 97.9 09/10/18 20:00 Bi-pap 09/10/18 20:00 2.0 32 09/10/18 19:37 97 Nasal Cannula 2.0 28 09/10/18 19:37 Nasal Cannula 2.0 28 09/10/18 19:35 70 09/10/18 16:18 Bi-pap 09/10/18 16:18 2.0 32 09/10/18 16:00 72 09/10/18 16:00 97.1 75 24 133/70 (91) 100 97.1 09/10/18 13:58 2.0 32 09/10/18 12:00 97.5 69 24 150/66 (94) 100 97.5 09/10/18 12:00 71 09/10/18 12:00 Bi-pap Intake and Output 09/10/18 09/11/18 19:00 07:00 Intake Total 800 ml Output Total 550 ml 425 ml Balance -550 ml 375 ml Intake Free Water 150 ml Tube Feeding 650 ml Output Urine Total 550 ml 425 ml Objective GENERAL: Ill-appearing male, withdrawn, nonverbal. ALOC; on NC but was on BIPAP LUNGS: scattered but increased rhonchi, moderate air entry, symmetric. CARDIAC: Normal S1, S2. RRR without murmurs, rubs, or gallops. ABDOMEN: Soft, nontender, nondistended. no distention; no HSM EXTREMITIES: No cyanosis or clubbing. no edema SKIN: noted GENITOURINARY: suprapubic catheter. NEUROLOGIC: withdrawn nonverbal at present reviewed and edited Microbiology Date/Time Source Procedure Growth Status 09/08/18 19:20 Blood Blood Culture - Preliminary NO GROWTH AFTER 48 HOURS Resulted 09/08/18 19:15 Blood Blood Culture - Preliminary NO GROWTH AFTER 48 HOURS Resulted 09/08/18 22:00 Wound Gram Stain - Final Complete 09/08/18 22:00 Wound Culture - Final Staphylococcus Aureus - Mrsa Staphylococcus Sp Coag Neg Complete 09/09/18 15:20 Sputum Gram Stain - Final Resulted 09/09/18 15:20 Sputum Culture - Preliminary YEAST Usual Respiratory Krissy Resulted Laboratory Tests 09/10/18 12:30: White Blood Count 12.0H, Red Blood Count 3.09L, Hemoglobin 9.4L, Hematocrit 28.5L, Mean Corpuscular Volume 92, Mean Corpuscular Hemoglobin 30.6, Mean Corpuscular Hemoglobin Concent 33.1, Red Cell Distribution Width 14.8, Platelet Count 381, Mean Platelet Volume 5.7L, Neutrophils (%) (Auto) , Lymphocytes (%) ( Auto) , Monocytes (%) (Auto) , Eosinophils (%) (Auto) , Basophils (%) (Auto) , Differential Total Cells Counted 100, Neutrophils % (Manual) 83H, Lymphocytes % (Manual) 5L, Monocytes % (Manual) 3, Eosinophils % (Manual) 0, Basophils % ( Manual) 0, Band Neutrophils 9H, Platelet Estimate Adequate, Platelet Morphology Normal, Anisocytosis 1+, Sodium Level 133L, Potassium Level 4.4, Chloride Level 96L, Carbon Dioxide Level 32, Anion Gap 5, Blood Urea Nitrogen 18, Creatinine 0.5L, Estimat Glomerular Filtration Rate , Glucose Level 165H, Calcium Level 9.2 , Total Bilirubin 0.1L, Aspartate Amino Transf (AST/SGOT) 17, Alanine Aminotransferase (ALT/SGPT) 6L, Alkaline Phosphatase 96, Total Protein 7.0, Albumin 1.6L, Globulin 5.4, Albumin/Globulin Ratio 0.3L 09/11/18 03:05: Sodium Level 134L, Potassium Level 4.7, Chloride Level 97L, Carbon Dioxide Level 33H, Anion Gap 4L, Blood Urea Nitrogen 21H, Creatinine 0.6, Estimat Glomerular Filtration Rate , Glucose Level 133H, Calcium Level 9.6, Total Bilirubin 0.2, Aspartate Amino Transf (AST/SGOT) 17, Alanine Aminotransferase ( ALT/SGPT) 12, Alkaline Phosphatase 115, Total Protein 7.6, Albumin 1.9L, Globulin 5.7, Albumin/Globulin Ratio 0.3L Current Medications Medications (Trade) Dose Ordered Sig/Benjamin Route PRN Reason Start Time Stop Time Status Last Admin Dose Admin Acetaminophen (Tylenol) 650 mg Q4H PRN ORAL Mild Pain/Temp > 100.5 09/09/18 09:00 09/27/18 08:59 Albuterol/ Ipratropium (Albuterol/ Ipratropium) 3 ml Q6H PRN HHN Bronchospasm 09/09/18 09:00 09/14/18 08:59 Aspirin (ASA) 81 mg DAILY GT 09/09/18 09:00 09/22/18 08:59 09/11/18 08:44 Dextrose (Dextrose 50%) 25 ml Q30M PRN IV Hypoglycemia 09/09/18 09:00 09/20/18 08:59 Dextrose (Dextrose 50%) 50 ml Q30M PRN IV Hypoglycemia 09/09/18 09:00 09/20/18 08:59 Ertapenem 1 gm/ Sodium Chloride 55 ml @ 110 mls/hr Q24H IVPB 09/09/18 12:00 09/11/18 11:59 09/10/18 12:44 Heparin Sodium (Porcine) (Heparin 5000 units/ml) 5,000 units EVERY 12 HOURS SUBQ 09/09/18 09:00 09/20/18 20:59 09/11/18 08:47 Insulin Aspart (NovoLOG) EVERY 6 HOURS SUBQ 09/09/18 12:00 09/22/18 11:59 09/11/18 05:53 Lansoprazole (Prevacid) 30 mg DAILY GT 09/09/18 09:00 09/24/18 08:59 09/11/18 08:44 Levetiracetam (Keppra) 750 mg Q12HR GT 09/09/18 09:00 10/04/18 08:59 09/11/18 08:44 Levothyroxine Sodium (Synthroid) 125 mcg DAILY@0630 ORAL 09/10/18 06:30 09/23/18 06:29 09/11/18 05:51 Vancomycin HCl (Vanco rx to dose) 1 ea DAILY PRN MISC . 09/09/18 10:45 10/09/18 10:44 Vancomycin HCl 1 gm/Dextrose 275 ml @ 183.708 mls/hr Q24H IVPB 09/10/18 12:00 09/15/18 11:59 09/10/18 13:04 James Langston MD Sep 11, 2018 11:16
[2018-09-11] MEDS: Vancomycin 1gm/D5W 275ml IVPB SCH ×2 (11:37)
[2018-09-11 12:17] VITALS: BP 134/73
--- NOTE | 2018-09-11 13:01 | Infectious Diseases Prog Note ---
Assessment/Plan Assessment/Plan A: Peritoneal abscess, culture ESBL E. coli Complicated UTI treated Pneumonia Hypoxic respiratory failure Dementia DM HPN Sacral stage 3 pressure ulcer Broken peritoneal catheter Hypercapnic respiratory failure Encephalomalacia P; Continue Ertapenem 1 day Subjective ROS Limited/Unobtainable: Yes Allergies: Coded Allergies: No Known Allergies (Unverified , 06/17/18) Objective Vital Signs Last 24 Hour Vital Signs Date Time Temp Pulse Resp B/P (MAP) Pulse Ox O2 Delivery O2 Flow Rate FiO2 09/11/18 12:21 Bi-pap 09/11/18 12:19 35 09/11/18 12:17 98.2 69 22 134/73 (93) 99 98.2 09/11/18 11:49 56 21 100 Full Face 35 09/11/18 09:44 2.0 09/11/18 09:43 70 09/11/18 08:00 Bi-pap 09/11/18 08:00 98.8 62 20 144/61 (88) 100 98.8 09/11/18 06:43 Nasal Cannula 2.0 28 09/11/18 06:43 96 Nasal Cannula 2.0 28 09/11/18 05:07 62 19 100 Full Face 35 09/11/18 04:00 98.1 60 19 136/63 (87) 100 98.1 09/11/18 04:00 Bi-pap 09/11/18 04:00 2.0 32 09/11/18 03:40 57 09/11/18 03:05 58 18 100 Full Face 35 09/11/18 01:00 60 23 99 Full Face 35 09/11/18 00:00 Bi-pap 09/11/18 00:00 2.0 32 09/11/18 00:00 98.2 53 17 117/60 (79) 100 98.2 09/10/18 23:31 57 09/10/18 22:51 54 14 100 Full Face 35 09/10/18 21:48 69 20 98 Full Face 35 09/10/18 20:00 97.9 69 20 123/59 (80) 98 97.9 09/10/18 20:00 Bi-pap 09/10/18 20:00 2.0 32 09/10/18 19:37 97 Nasal Cannula 2.0 28 09/10/18 19:37 Nasal Cannula 2.0 28 09/10/18 19:35 70 09/10/18 16:18 Bi-pap 09/10/18 16:18 2.0 32 09/10/18 16:00 72 09/10/18 16:00 97.1 75 24 133/70 (91) 100 97.1 09/10/18 13:58 2.0 32 Height (Feet): 5 Height (Inches): 5.00 Weight (Pounds): 128 HEENT: mucous membranes moist Respiratory/Chest: other - few rhonchi, on BIPAP Abdomen: soft, non tender, other - GT feeding Extremities: no edema Neurologic/Psychiatric: unresponsiveness Microbiology Date/Time Source Procedure Growth Status 09/08/18 19:20 Blood Blood Culture - Preliminary NO GROWTH AFTER 48 HOURS Resulted 09/08/18 19:15 Blood Blood Culture - Preliminary NO GROWTH AFTER 48 HOURS Resulted 09/08/18 22:00 Wound Gram Stain - Final Complete 09/08/18 22:00 Wound Culture - Final Staphylococcus Aureus - Mrsa Staphylococcus Sp Coag Neg Complete 09/09/18 15:20 Sputum Gram Stain - Final Resulted 09/09/18 15:20 Sputum Culture - Preliminary YEAST Usual Respiratory Krissy Resulted Laboratory Tests Test 09/11/18 03:05 09/11/18 11:14 Sodium Level 134 MMOL/L (136-145) L Potassium Level 4.7 MMOL/L (3.5-5.1) Chloride Level 97 MMOL/L (98-107) L Carbon Dioxide Level 33 MMOL/L (21-32) H Anion Gap 4 mmol/L (5-15) L Blood Urea Nitrogen 21 mg/dL (7-18) H Creatinine 0.6 MG/DL (0.55-1.30) Estimat Glomerular Filtration Rate mL/min (>60) Glucose Level 133 MG/DL (74-106) H Calcium Level 9.6 MG/DL (8.5-10.1) Total Bilirubin 0.2 MG/DL (0.2-1.0) Aspartate Amino Transf (AST/SGOT) 17 U/L (15-37) Alanine Aminotransferase (ALT/SGPT) 12 U/L (12-78) Alkaline Phosphatase 115 U/L (46-116) Total Protein 7.6 G/DL (6.4-8.2) Albumin 1.9 G/DL (3.4-5.0) L Globulin 5.7 g/dL Albumin/Globulin Ratio 0.3 (1.0-2.7) L Arterial Blood pH 7.429 (7.350-7.450) Arterial Blood Partial Pressure CO2 53.3 mmHg (35.0-45.0) H Arterial Blood Partial Pressure O2 < 42.5 mmHg (75.0-100.0) Arterial Blood HCO3 34.5 mmol/L (22.0-26.0) H Arterial Blood Oxygen Saturation 69.1 % (95-100) *L Arterial Blood Base Excess 8.8 (-2-2) H Shawn Test Positive Current Medications Medications (Trade) Dose Ordered Sig/Benjamin Route PRN Reason Start Time Stop Time Status Last Admin Dose Admin Acetaminophen (Tylenol) 650 mg Q4H PRN ORAL Mild Pain/Temp > 100.5 09/09/18 09:00 09/27/18 08:59 Albuterol/ Ipratropium (Albuterol/ Ipratropium) 3 ml Q6H PRN HHN Bronchospasm 09/09/18 09:00 09/14/18 08:59 Aspirin (ASA) 81 mg DAILY GT 09/09/18 09:00 09/22/18 08:59 09/11/18 08:44 Dextrose (Dextrose 50%) 25 ml Q30M PRN IV Hypoglycemia 09/09/18 09:00 09/20/18 08:59 Dextrose (Dextrose 50%) 50 ml Q30M PRN IV Hypoglycemia 09/09/18 09:00 09/20/18 08:59 Heparin Sodium (Porcine) (Heparin 5000 units/ml) 5,000 units EVERY 12 HOURS SUBQ 09/09/18 09:00 09/20/18 20:59 09/11/18 08:47 Insulin Aspart (NovoLOG) EVERY 6 HOURS SUBQ 09/09/18 12:00 09/22/18 11:59 09/11/18 11:35 Lansoprazole (Prevacid) 30 mg DAILY GT 09/09/18 09:00 09/24/18 08:59 09/11/18 08:44 Levetiracetam (Keppra) 750 mg Q12HR GT 09/09/18 09:00 10/04/18 08:59 09/11/18 08:44 Levothyroxine Sodium (Synthroid) 125 mcg DAILY@0630 ORAL 09/10/18 06:30 09/23/18 06:29 09/11/18 05:51 Vancomycin HCl (Vanco rx to dose) 1 ea DAILY PRN MISC . 09/09/18 10:45 10/09/18 10:44 Vancomycin HCl 1 gm/Dextrose 275 ml @ 183.708 mls/hr Q24H IVPB 09/10/18 12:00 09/15/18 11:59 09/11/18 11:37 Slade Odonnell MD Sep 11, 2018 13:01
[2018-09-11 15:47] VITALS: BP 134/58
[2018-09-11 20:00] VITALS: BP 148/63
--- NOTE | 2018-09-11 22:20 | Diagnostic Imaging Report ---
APPROVED REPORT CPT Code: 87215 Present Symptoms Shortness of breath BILATERAL: Imaging reveals a patent deep venous system bilaterally. There is no evidence of thrombus within the femoral, popliteal or tibial segments. The greater saphenous veins are also within normal limits. Doppler indicates normal spontaneous flow within these segments.
[2018-09-12] VITALS: BP 120/67
[2018-09-12 04:00] VITALS: BP 151/70
[2018-09-12 04:18] LABS: BASOPHILS % (AUTO) 1.4 % (0.0-2.0); EOSINOPHILS % (AUTO) 2.6 % (0.0-3.0); HEMATOCRIT 29.5 % (42.0-52.0); HEMOGLOBIN 9.7 G/DL (14.2-18.0); LYMPHOCYTES % (AUTO) 16.2 % (20.0-45.0); MEAN CORPUSCULAR VOLUME 92 FL (80-99); MONOCYTES % (AUTO) 9.9 % (1.0-10.0); NEUTROPHILS % (AUTO) 69.9 % (45.0-75.0); PLATELET COUNT 338 K/UL (150-450); RED BLOOD COUNT 3.19 M/UL (4.70-6.10); RED CELL DISTRIBUTION WIDTH 14.9 % (11.6-14.8); WHITE BLOOD COUNT 7.8 K/UL (4.8-10.8)
[2018-09-12 04:34] LABS: ALANINE AMINOTRANSFERASE 11 U/L (12-78); ALBUMIN 1.6 G/DL (3.4-5.0); ALBUMIN/GLOBULIN RATIO 0.3 (1.0-2.7); ALKALINE PHOSPHATASE 110 U/L (46-116); ANION GAP 4 mmol/L (5-15); ASPARTATE AMINO TRANSFERASE 16 U/L (15-37); BILIRUBIN,TOTAL 0.3 MG/DL (0.2-1.0); BLOOD UREA NITROGEN 23 mg/dL (7-18); CALCIUM 8.8 MG/DL (8.5-10.1); CARBON DIOXIDE 31 MMOL/L (21-32); CHLORIDE 98 MMOL/L (98-107); CREATININE 0.6 MG/DL (0.55-1.30); POTASSIUM 4.6 MMOL/L (3.5-5.1); SODIUM 133 MMOL/L (136-145)
[2018-09-12] MEDS: Levothyroxine 125mcg tab ORAL SCH (05:53)
[2018-09-12] MEDS: NovoLOG Insulin Flexpen SUBQ SCH ×4 (05:55→23:29)
--- NOTE | 2018-09-12 07:36 | General Progress Note ---
Assessment/Plan Problem List: (1) UTI (urinary tract infection) ICD Codes: N39.0 - Urinary tract infection, site not specified SNOMED: 62005787 Qualifiers: Qualified Codes: T83.511A - Infection and inflammatory reaction due to indwelling urethral catheter, initial encounter; N39.0 - Urinary tract infection , site not specified (2) Severe sepsis ICD Codes: A41.9 - Sepsis, unspecified organism; R65.20 - Severe sepsis without septic shock SNOMED: 76847838 (3) NSTEMI (non-ST elevated myocardial infarction) ICD Codes: I21.4 - Non-ST elevation (NSTEMI) myocardial infarction SNOMED: 236832876 (4) Right lower lobe pneumonia ICD Codes: J18.1 - Lobar pneumonia, unspecified organism SNOMED: 154674142 Qualifiers: (5) Elevated lactic acid level ICD Codes: R79.89 - Other specified abnormal findings of blood chemistry SNOMED: 4276752 Status: stable, progressing Assessment/Plan monitor abg bipap per pulm- nightly and prn cont abx per id jonathan care stable currently dc planning Subjective ROS Limited/Unobtainable: Yes Constitutional: Reports: malaise, weakness HEENT: Reports: no symptoms Cardiovascular: Reports: no symptoms Respiratory: Reports: shortness of breath Gastrointestinal/Abdominal: Reports: difficulty swallowing Genitourinary: Reports: no symptoms Neurologic/Psychiatric: Reports: pre-existing deficit Endocrine: Reports: no symptoms Hematologic/Lymphatic: Reports: no symptoms Allergies: Coded Allergies: No Known Allergies (Unverified , 06/17/18) All Systems: reviewed and negative except above Subjective currently off bipap. more alert. follows some simple commands. abg better. no fevers. Objective Last 24 Hour Vital Signs Date Time Temp Pulse Resp B/P (MAP) Pulse Ox O2 Delivery O2 Flow Rate FiO2 09/12/18 06:50 59 25 99 09/12/18 06:46 60 24 100 Full Face 35 09/12/18 05:00 54 18 100 Full Face 35 09/12/18 04:00 58 09/12/18 04:00 Bi-pap 09/12/18 04:00 35 09/12/18 04:00 97.5 62 22 151/70 (97) 100 97.5 09/12/18 03:00 60 28 100 Full Face 35 09/12/18 00:40 58 25 100 Full Face 35 09/12/18 00:00 66 09/12/18 00:00 Bi-pap 09/12/18 00:00 97.0 60 20 120/67 (84) 99 97.0 09/11/18 22:45 54 23 97 Full Face 35 09/11/18 20:00 98.1 64 22 148/63 (91) 100 98.1 09/11/18 20:00 66 09/11/18 20:00 Bi-pap 09/11/18 20:00 35 09/11/18 19:50 99 Nasal Cannula 2.0 28 09/11/18 19:50 Nasal Cannula 2.0 28 09/11/18 16:55 35 09/11/18 16:53 Bi-pap 09/11/18 16:34 61 21 100 Full Face 35 09/11/18 16:00 54 09/11/18 15:47 97.9 55 24 134/58 (83) 100 97.9 09/11/18 15:07 53 23 100 Full Face 35 09/11/18 13:14 65 09/11/18 12:59 61 21 99 Full Face 35 09/11/18 12:21 Bi-pap 09/11/18 12:19 35 09/11/18 12:17 98.2 69 22 134/73 (93) 99 98.2 09/11/18 11:49 56 21 100 Full Face 35 09/11/18 09:44 2.0 09/11/18 09:43 70 09/11/18 08:00 Bi-pap 09/11/18 08:00 98.8 62 20 144/61 (88) 100 98.8 Intake and Output 09/11/18 09/12/18 19:00 07:00 Intake Total 895 ml 685 ml Output Total 800 ml 1400 ml Balance 95 ml -715 ml Intake Free Water 180 ml 100 ml Tube Feeding 715 ml 585 ml Output Urine Total 800 ml 1400 ml Laboratory Tests 09/11/18 11:14: Arterial Blood pH 7.429, Arterial Blood Partial Pressure CO2 53.3H, Arterial Blood Partial Pressure O2 < 42.5*L, Arterial Blood HCO3 34.5H, Arterial Blood Oxygen Saturation 69.1*L, Arterial Blood Base Excess 8.8H, Shawn Test Positive 09/12/18 03:23: White Blood Count 7.8, Red Blood Count 3.19L, Hemoglobin 9.7L, Hematocrit 29.5L , Mean Corpuscular Volume 92, Mean Corpuscular Hemoglobin 30.5, Mean Corpuscular Hemoglobin Concent 33.0, Red Cell Distribution Width 14.9H, Platelet Count 338, Mean Platelet Volume 5.9L, Neutrophils (%) (Auto) 69.9, Lymphocytes (%) (Auto) 16.2L, Monocytes (%) (Auto) 9.9, Eosinophils (%) (Auto) 2.6, Basophils (%) (Auto) 1.4, Sodium Level 133L, Potassium Level 4.6, Chloride Level 98, Carbon Dioxide Level 31, Anion Gap 4L, Blood Urea Nitrogen 23H, Creatinine 0.6, Estimat Glomerular Filtration Rate , Glucose Level 141H, Calcium Level 8.8, Total Bilirubin 0.3, Aspartate Amino Transf (AST/SGOT) 16, Alanine Aminotransferase (ALT/SGPT) 11L, Alkaline Phosphatase 110, Total Protein 6.8, Albumin 1.6L, Globulin 5.2, Albumin/Globulin Ratio 0.3L Height (Feet): 5 Height (Inches): 5.00 Weight (Pounds): 128 Objective General Appearance: WD/WN, on bipap. opens eyes. moans/responds Neck: supple Cardiovascular: normal rate, regular rhythm Respiratory/Chest: chest wall non-tender, lungs with farhat rhonchi Abdomen: normal bowel sounds, non tender, soft, no organomegaly Neurologic: unresponsive, aphasia Michael Zuniga MD Sep 12, 2018 07:36
[2018-09-12] MEDS ORDERED: Milk of Magnesia 30ml Ud ORAL PRN (07:45)
[2018-09-12 08:00] VITALS: BP_SYST 126; BP_SYST 159; BP_DIAS 70; BP_DIAS 84
--- NOTE | 2018-09-12 08:28 | Pulmonology Progress Note ---
Assessment/Plan Assessment/Plan IMPRESSION: 1. Respiratory failure, acute 2. Sepsis with shock. s/p 3. Dysphagia. 4. G-tube. 5. CVA. 6. Altered mental status. 7. Aspiration pneumonia 8. Severe protein-calorie malnutrition. 9. Diabetes. PLAN respiratory care -BIPAP as needed aspiration precautions noted reviewd ABG check CXR- ordered suction PRN antibiotics management reviewed imaging noted; repeat as needed close follow up for change hope to avoid intubation DVT prophylaxis dc planning in progress impression, plan, and exam edited and reviewed in detail care discussed with RN Subjective ROS Limited/Unobtainable: Yes Allergies: Coded Allergies: No Known Allergies (Unverified , 06/17/18) Subjective reviewed care off BIPAP no respiratory distress confused and same overall Objective Last 24 Hour Vital Signs Date Time Temp Pulse Resp B/P (MAP) Pulse Ox O2 Delivery O2 Flow Rate FiO2 09/12/18 08:00 97.2 70 20 126/84 (98) 100 97.2 09/12/18 06:50 59 25 99 09/12/18 06:46 60 24 100 Full Face 35 09/12/18 05:00 54 18 100 Full Face 35 09/12/18 04:00 58 09/12/18 04:00 Bi-pap 09/12/18 04:00 35 09/12/18 04:00 97.5 62 22 151/70 (97) 100 97.5 09/12/18 03:00 60 28 100 Full Face 35 09/12/18 00:40 58 25 100 Full Face 35 09/12/18 00:00 66 09/12/18 00:00 Bi-pap 09/12/18 00:00 97.0 60 20 120/67 (84) 99 97.0 09/11/18 22:45 54 23 97 Full Face 35 09/11/18 20:00 98.1 64 22 148/63 (91) 100 98.1 09/11/18 20:00 66 09/11/18 20:00 Bi-pap 09/11/18 20:00 35 09/11/18 19:50 99 Nasal Cannula 2.0 28 09/11/18 19:50 Nasal Cannula 2.0 28 09/11/18 16:55 35 09/11/18 16:53 Bi-pap 09/11/18 16:34 61 21 100 Full Face 35 09/11/18 16:00 54 09/11/18 15:47 97.9 55 24 134/58 (83) 100 97.9 09/11/18 15:07 53 23 100 Full Face 35 09/11/18 13:14 65 09/11/18 12:59 61 21 99 Full Face 35 09/11/18 12:21 Bi-pap 09/11/18 12:19 35 09/11/18 12:17 98.2 69 22 134/73 (93) 99 98.2 09/11/18 11:49 56 21 100 Full Face 35 09/11/18 09:44 2.0 09/11/18 09:43 70 Intake and Output 09/11/18 09/12/18 19:00 07:00 Intake Total 895 ml 685 ml Output Total 800 ml 1400 ml Balance 95 ml -715 ml Intake Free Water 180 ml 100 ml Tube Feeding 715 ml 585 ml Output Urine Total 800 ml 1400 ml Objective GENERAL: Ill-appearing male, withdrawn, nonverbal. ALOC; on NC LUNGS: some rhonchi, moderate air entry, symmetric. CARDIAC: Normal S1, S2. RRR without murmurs, rubs, or gallops. ABDOMEN: Soft, nontender, nondistended. no distention; no HSM EXTREMITIES: No cyanosis or clubbing. no edema SKIN: noted GENITOURINARY: suprapubic catheter. NEUROLOGIC: withdrawn nonverbal at present; awake reviewed and edited Microbiology Date/Time Source Procedure Growth Status 09/09/18 15:20 Sputum Gram Stain - Final Complete 09/09/18 15:20 Sputum Culture - Final Lynn Tropicalis Usual Respiratory Krissy Complete Laboratory Tests 09/11/18 11:14: Arterial Blood pH 7.429, Arterial Blood Partial Pressure CO2 53.3H, Arterial Blood Partial Pressure O2 < 42.5*L, Arterial Blood HCO3 34.5H, Arterial Blood Oxygen Saturation 69.1*L, Arterial Blood Base Excess 8.8H, Shawn Test Positive 09/12/18 03:23: White Blood Count 7.8, Red Blood Count 3.19L, Hemoglobin 9.7L, Hematocrit 29.5L , Mean Corpuscular Volume 92, Mean Corpuscular Hemoglobin 30.5, Mean Corpuscular Hemoglobin Concent 33.0, Red Cell Distribution Width 14.9H, Platelet Count 338, Mean Platelet Volume 5.9L, Neutrophils (%) (Auto) 69.9, Lymphocytes (%) (Auto) 16.2L, Monocytes (%) (Auto) 9.9, Eosinophils (%) (Auto) 2.6, Basophils (%) (Auto) 1.4, Sodium Level 133L, Potassium Level 4.6, Chloride Level 98, Carbon Dioxide Level 31, Anion Gap 4L, Blood Urea Nitrogen 23H, Creatinine 0.6, Estimat Glomerular Filtration Rate , Glucose Level 141H, Calcium Level 8.8, Total Bilirubin 0.3, Aspartate Amino Transf (AST/SGOT) 16, Alanine Aminotransferase (ALT/SGPT) 11L, Alkaline Phosphatase 110, Total Protein 6.8, Albumin 1.6L, Globulin 5.2, Albumin/Globulin Ratio 0.3L Current Medications Medications (Trade) Dose Ordered Sig/Benjamin Route PRN Reason Start Time Stop Time Status Last Admin Dose Admin Acetaminophen (Tylenol) 650 mg Q4H PRN ORAL Mild Pain/Temp > 100.5 09/09/18 09:00 09/27/18 08:59 Albuterol/ Ipratropium (Albuterol/ Ipratropium) 3 ml Q6H PRN HHN Bronchospasm 09/09/18 09:00 09/14/18 08:59 Aspirin (ASA) 81 mg DAILY GT 09/09/18 09:00 09/22/18 08:59 09/11/18 08:44 Bisacodyl (Dulcolax) 10 mg DAILYPRN PRN RECTAL Constipation 09/12/18 07:45 10/12/18 07:44 Dextrose (Dextrose 50%) 25 ml Q30M PRN IV Hypoglycemia 09/09/18 09:00 09/20/18 08:59 Dextrose (Dextrose 50%) 50 ml Q30M PRN IV Hypoglycemia 09/09/18 09:00 09/20/18 08:59 Docusate Sodium (Colace) 250 mg BID ORAL 09/12/18 09:00 10/12/18 08:59 Heparin Sodium (Porcine) (Heparin 5000 units/ml) 5,000 units EVERY 12 HOURS SUBQ 09/09/18 09:00 09/20/18 20:59 09/11/18 21:12 Insulin Aspart (NovoLOG) EVERY 6 HOURS SUBQ 09/09/18 12:00 09/22/18 11:59 09/12/18 05:55 Lansoprazole (Prevacid) 30 mg DAILY GT 09/09/18 09:00 09/24/18 08:59 09/11/18 08:44 Levetiracetam (Keppra) 750 mg Q12HR GT 09/09/18 09:00 10/04/18 08:59 09/11/18 21:10 Levothyroxine Sodium (Synthroid) 125 mcg DAILY@0630 ORAL 09/10/18 06:30 09/23/18 06:29 09/12/18 05:53 Magnesium Hydroxide (Mom) 30 ml DAILYPRN PRN ORAL Constipation 09/12/18 07:45 10/12/18 07:44 Vancomycin HCl (Vanco rx to dose) 1 ea DAILY PRN MISC . 09/09/18 10:45 10/09/18 10:44 Vancomycin HCl 1 gm/Dextrose 275 ml @ 183.708 mls/hr Q24H IVPB 09/10/18 12:00 09/15/18 11:59 09/11/18 11:37 James Langston MD Sep 12, 2018 08:28
[2018-09-12] MEDS: levETIRAcetam 500mg/5ml Liquid GT SCH ×2 (09:17→20:39)
[2018-09-12] MEDS: Docusate 250mg cap ORAL SCH ×2 (09:17→17:02)
[2018-09-12] MEDS: Aspirin Baby 81mg GT SCH (09:17)
[2018-09-12] MEDS: Heparin 5000 units/ml inj SUBQ SCH ×2 (09:19→20:41)
--- NOTE | 2018-09-12 10:31 | Urology Progress Note ---
Assessment/Plan Assessment/Plan 1. Urinary retention with chronic suprapubic tube. 2. Benign prostatic hypertrophy history. 3. Neurogenic bladder. 4. Urinary tract infection and colonization. 5. Hematuria. 6. Proteinuria. keep SP tube, last exchanged 08/23 hand irrigate PRN cont with abx as ordered cysto later consider recheck urine cx at some point Subjective Allergies: Coded Allergies: No Known Allergies (Unverified , 06/17/18) Subjective all noted, peritoneal cath removed 09/01, moved to step down Objective Last 24 Hour Vital Signs Date Time Temp Pulse Resp B/P (MAP) Pulse Ox O2 Delivery O2 Flow Rate FiO2 09/12/18 08:59 99 Nasal Cannula 2.0 28 09/12/18 08:59 Nasal Cannula 2.0 28 09/12/18 08:00 96.8 58 21 159/70 (99) 100 96.8 09/12/18 06:50 59 25 99 09/12/18 06:46 60 24 100 Full Face 35 09/12/18 05:00 54 18 100 Full Face 35 09/12/18 04:00 58 09/12/18 04:00 Bi-pap 09/12/18 04:00 35 09/12/18 04:00 97.5 62 22 151/70 (97) 100 97.5 09/12/18 03:00 60 28 100 Full Face 35 09/12/18 00:40 58 25 100 Full Face 35 09/12/18 00:00 66 09/12/18 00:00 Bi-pap 09/12/18 00:00 97.0 60 20 120/67 (84) 99 97.0 09/11/18 22:45 54 23 97 Full Face 35 09/11/18 20:00 98.1 64 22 148/63 (91) 100 98.1 09/11/18 20:00 66 09/11/18 20:00 Bi-pap 09/11/18 20:00 35 09/11/18 19:50 99 Nasal Cannula 2.0 28 09/11/18 19:50 Nasal Cannula 2.0 28 09/11/18 16:55 35 09/11/18 16:53 Bi-pap 09/11/18 16:34 61 21 100 Full Face 35 09/11/18 16:00 54 09/11/18 15:47 97.9 55 24 134/58 (83) 100 97.9 09/11/18 15:07 53 23 100 Full Face 35 09/11/18 13:14 65 09/11/18 12:59 61 21 99 Full Face 35 09/11/18 12:21 Bi-pap 09/11/18 12:19 35 09/11/18 12:17 98.2 69 22 134/73 (93) 99 98.2 09/11/18 11:49 56 21 100 Full Face 35 Intake and Output 09/11/18 09/12/18 19:00 07:00 Intake Total 895 ml 685 ml Output Total 800 ml 1400 ml Balance 95 ml -715 ml Intake Free Water 180 ml 100 ml Tube Feeding 715 ml 585 ml Output Urine Total 800 ml 1400 ml Microbiology Date/Time Source Procedure Growth Status 09/08/18 19:20 Blood Blood Culture - Preliminary NO GROWTH AFTER 72 HOURS Resulted 09/08/18 22:00 Wound Gram Stain - Final Complete 09/08/18 22:00 Wound Culture - Final Staphylococcus Aureus - Mrsa Staphylococcus Sp Coag Neg Complete 09/09/18 15:20 Sputum Gram Stain - Final Complete 09/09/18 15:20 Sputum Culture - Final Lynn Tropicalis Usual Respiratory Krissy Complete 08/25/18 17:00 Stool Clostridium difficile Toxin Assay - Final Complete 08/21/18 15:15 Urine,Clean Catch Urine Culture - Final Providencia Stuartii Complete 09/01/18 15:56 Abdominal Abscess Gram Stain - Final Complete 09/01/18 15:56 Aerobic Culture - Final Escherichia Coli - Esbl Providencia Stuartii Usual Skin Krissy Complete 09/01/18 15:56 Abdominal Abscess Anaerobic Culture - Final NO ANAEROBES ISOLATED Complete Current Medications Medications (Trade) Dose Ordered Sig/Benjamin Route PRN Reason Start Time Stop Time Status Last Admin Dose Admin Acetaminophen (Tylenol) 650 mg Q4H PRN ORAL Mild Pain/Temp > 100.5 09/09/18 09:00 09/27/18 08:59 Albuterol/ Ipratropium (Albuterol/ Ipratropium) 3 ml Q6H PRN HHN Bronchospasm 09/09/18 09:00 09/14/18 08:59 Aspirin (ASA) 81 mg DAILY GT 09/09/18 09:00 09/22/18 08:59 09/12/18 09:17 Bisacodyl (Dulcolax) 10 mg DAILYPRN PRN RECTAL Constipation 09/12/18 07:45 10/12/18 07:44 Dextrose (Dextrose 50%) 25 ml Q30M PRN IV Hypoglycemia 09/09/18 09:00 09/20/18 08:59 Dextrose (Dextrose 50%) 50 ml Q30M PRN IV Hypoglycemia 09/09/18 09:00 09/20/18 08:59 Docusate Sodium (Colace) 250 mg BID ORAL 09/12/18 09:00 10/12/18 08:59 09/12/18 09:17 Heparin Sodium (Porcine) (Heparin 5000 units/ml) 5,000 units EVERY 12 HOURS SUBQ 09/09/18 09:00 09/20/18 20:59 09/12/18 09:19 Insulin Aspart (NovoLOG) EVERY 6 HOURS SUBQ 09/09/18 12:00 09/22/18 11:59 09/12/18 05:55 Lansoprazole (Prevacid) 30 mg DAILY GT 09/09/18 09:00 09/24/18 08:59 09/12/18 09:17 Levetiracetam (Keppra) 750 mg Q12HR GT 09/09/18 09:00 10/04/18 08:59 09/12/18 09:17 Levothyroxine Sodium (Synthroid) 125 mcg DAILY@0630 ORAL 09/10/18 06:30 09/23/18 06:29 09/12/18 05:53 Magnesium Hydroxide (Mom) 30 ml DAILYPRN PRN ORAL Constipation 09/12/18 07:45 10/12/18 07:44 Vancomycin HCl (Vanco rx to dose) 1 ea DAILY PRN MISC . 09/09/18 10:45 10/09/18 10:44 Vancomycin HCl 1 gm/Dextrose 275 ml @ 183.708 mls/hr Q24H IVPB 09/10/18 12:00 09/15/18 11:59 09/11/18 11:37 Laboratory Tests 09/11/18 11:14: Arterial Blood pH 7.429, Arterial Blood Partial Pressure CO2 53.3H, Arterial Blood Partial Pressure O2 < 42.5*L, Arterial Blood HCO3 34.5H, Arterial Blood Oxygen Saturation 69.1*L, Arterial Blood Base Excess 8.8H, Shawn Test Positive 09/12/18 03:23: White Blood Count 7.8, Red Blood Count 3.19L, Hemoglobin 9.7L, Hematocrit 29.5L , Mean Corpuscular Volume 92, Mean Corpuscular Hemoglobin 30.5, Mean Corpuscular Hemoglobin Concent 33.0, Red Cell Distribution Width 14.9H, Platelet Count 338, Mean Platelet Volume 5.9L, Neutrophils (%) (Auto) 69.9, Lymphocytes (%) (Auto) 16.2L, Monocytes (%) (Auto) 9.9, Eosinophils (%) (Auto) 2.6, Basophils (%) (Auto) 1.4, Sodium Level 133L, Potassium Level 4.6, Chloride Level 98, Carbon Dioxide Level 31, Anion Gap 4L, Blood Urea Nitrogen 23H, Creatinine 0.6, Estimat Glomerular Filtration Rate , Glucose Level 141H, Calcium Level 8.8, Total Bilirubin 0.3, Aspartate Amino Transf (AST/SGOT) 16, Alanine Aminotransferase (ALT/SGPT) 11L, Alkaline Phosphatase 110, Total Protein 6.8, Albumin 1.6L, Globulin 5.2, Albumin/Globulin Ratio 0.3L Height (Feet): 5 Height (Inches): 5.00 Weight (Pounds): 128 Objective exam stable, urine clearing head CT noted ALEJANDRO COLLIER Sep 12, 2018 10:31
--- NOTE | 2018-09-12 11:11 | Diagnostic Imaging Report ---
Indication: Dyspnea Comparison: 09/05/2018 A single view chest radiograph was obtained. Findings: Patchy basilar infiltrates are present. Heart size is normal. The bones are osteopenic. Surgical clips projected over the right side of the chest. Right fourth rib deformity may be traumatic or due to prior surgery. IMPRESSION: Suspected pneumonia at the lung bases
[2018-09-12 12:00] VITALS: BP 120/62
[2018-09-12] MEDS ORDERED: Vancomycin 1250mg/D5W 250ml IVPB SCH (13:00)
[2018-09-12 16:00] VITALS: BP 148/73
--- NOTE | 2018-09-12 17:23 | Infectious Diseases Prog Note ---
Assessment/Plan Assessment/Plan A: Peritoneal abscess, culture ESBL E. coli Complicated UTI treated Pneumonia Hypoxic respiratory failure Dementia DM HPN Sacral stage 3 pressure ulcer Broken peritoneal catheter Hypercapnic respiratory failure Encephalomalacia P; discontinue Ertapenem Observe off antibiotic Subjective ROS Limited/Unobtainable: Yes Allergies: Coded Allergies: No Known Allergies (Unverified , 06/17/18) Objective Vital Signs Last 24 Hour Vital Signs Date Time Temp Pulse Resp B/P (MAP) Pulse Ox O2 Delivery O2 Flow Rate FiO2 09/12/18 16:00 98.1 77 21 148/73 (98) 98 98.1 09/12/18 16:00 2.0 09/12/18 16:00 Nasal Cannula 2.0 09/12/18 12:00 Nasal Cannula 2.0 09/12/18 12:00 2.0 09/12/18 12:00 97.3 59 20 120/62 (81) 100 97.3 09/12/18 12:00 57 09/12/18 08:59 99 Nasal Cannula 2.0 28 09/12/18 08:59 Nasal Cannula 2.0 28 09/12/18 08:00 2.0 09/12/18 08:00 57 09/12/18 08:00 96.8 58 21 159/70 (99) 100 96.8 09/12/18 08:00 Nasal Cannula 2.0 09/12/18 06:50 59 25 99 09/12/18 06:46 60 24 100 Full Face 35 09/12/18 05:00 54 18 100 Full Face 35 09/12/18 04:00 58 09/12/18 04:00 Bi-pap 09/12/18 04:00 35 09/12/18 04:00 97.5 62 22 151/70 (97) 100 97.5 09/12/18 03:00 60 28 100 Full Face 35 09/12/18 00:40 58 25 100 Full Face 35 09/12/18 00:00 66 09/12/18 00:00 Bi-pap 09/12/18 00:00 97.0 60 20 120/67 (84) 99 97.0 09/11/18 22:45 54 23 97 Full Face 35 09/11/18 20:00 98.1 64 22 148/63 (91) 100 98.1 10/21/18 20:00 66 09/11/18 20:00 Bi-pap 09/11/18 20:00 35 09/11/18 19:50 99 Nasal Cannula 2.0 28 09/11/18 19:50 Nasal Cannula 2.0 28 Height (Feet): 5 Height (Inches): 5.00 Weight (Pounds): 128 General Appearance: no acute distress HEENT: mucous membranes moist Respiratory/Chest: lungs clear Cardiovascular: normal rate Abdomen: soft, non tender, other - GT feeding Skin: ulcers Neurologic/Psychiatric: aphasia, other - opens eyes Laboratory Tests Test 09/12/18 03:23 09/12/18 10:45 White Blood Count 7.8 K/UL (4.8-10.8) Red Blood Count 3.19 M/UL (4.70-6.10) L Hemoglobin 9.7 G/DL (14.2-18.0) L Hematocrit 29.5 % (42.0-52.0) L Mean Corpuscular Volume 92 FL (80-99) Mean Corpuscular Hemoglobin 30.5 PG (27.0-31.0) Mean Corpuscular Hemoglobin Concent 33.0 G/DL (32.0-36.0) Red Cell Distribution Width 14.9 % (11.6-14.8) H Platelet Count 338 K/UL (150-450) Mean Platelet Volume 5.9 FL (6.5-10.1) L Neutrophils (%) (Auto) 69.9 % (45.0-75.0) Lymphocytes (%) (Auto) 16.2 % (20.0-45.0) L Monocytes (%) (Auto) 9.9 % (1.0-10.0) Eosinophils (%) (Auto) 2.6 % (0.0-3.0) Basophils (%) (Auto) 1.4 % (0.0-2.0) Sodium Level 133 MMOL/L (136-145) L Potassium Level 4.6 MMOL/L (3.5-5.1) Chloride Level 98 MMOL/L (98-107) Carbon Dioxide Level 31 MMOL/L (21-32) Anion Gap 4 mmol/L (5-15) L Blood Urea Nitrogen 23 mg/dL (7-18) H Creatinine 0.6 MG/DL (0.55-1.30) Estimat Glomerular Filtration Rate mL/min (>60) Glucose Level 141 MG/DL (74-106) H Calcium Level 8.8 MG/DL (8.5-10.1) Total Bilirubin 0.3 MG/DL (0.2-1.0) Aspartate Amino Transf (AST/SGOT) 16 U/L (15-37) Alanine Aminotransferase (ALT/SGPT) 11 U/L (12-78) L Alkaline Phosphatase 110 U/L (46-116) Total Protein 6.8 G/DL (6.4-8.2) Albumin 1.6 G/DL (3.4-5.0) L Globulin 5.2 g/dL Albumin/Globulin Ratio 0.3 (1.0-2.7) L Vancomycin Level Trough 11.9 ug/mL (5.0-12.0) Current Medications Medications (Trade) Dose Ordered Sig/Benjamin Route PRN Reason Start Time Stop Time Status Last Admin Dose Admin Acetaminophen (Tylenol) 650 mg Q4H PRN ORAL Mild Pain/Temp > 100.5 09/09/18 09:00 09/27/18 08:59 Albuterol/ Ipratropium (Albuterol/ Ipratropium) 3 ml Q6H PRN HHN Bronchospasm 09/09/18 09:00 09/14/18 08:59 Aspirin (ASA) 81 mg DAILY GT 09/09/18 09:00 09/22/18 08:59 09/12/18 09:17 Bisacodyl (Dulcolax) 10 mg DAILYPRN PRN RECTAL Constipation 09/12/18 07:45 10/12/18 07:44 Dextrose (Dextrose 50%) 25 ml Q30M PRN IV Hypoglycemia 09/09/18 09:00 09/20/18 08:59 Dextrose (Dextrose 50%) 50 ml Q30M PRN IV Hypoglycemia 09/09/18 09:00 09/20/18 08:59 Docusate Sodium (Colace) 250 mg BID ORAL 09/12/18 09:00 10/12/18 08:59 09/12/18 17:02 Heparin Sodium (Porcine) (Heparin 5000 units/ml) 5,000 units EVERY 12 HOURS SUBQ 09/09/18 09:00 09/20/18 20:59 10/22/18 09:19 Insulin Aspart (NovoLOG) EVERY 6 HOURS SUBQ 09/09/18 12:00 09/22/18 11:59 09/12/18 17:01 Lansoprazole (Prevacid) 30 mg DAILY GT 09/09/18 09:00 09/24/18 08:59 09/12/18 09:17 Levetiracetam (Keppra) 750 mg Q12HR GT 09/09/18 09:00 10/04/18 08:59 09/12/18 09:17 Levothyroxine Sodium (Synthroid) 125 mcg DAILY@0630 ORAL 09/10/18 06:30 09/23/18 06:29 09/12/18 05:53 Magnesium Hydroxide (Mom) 30 ml DAILYPRN PRN ORAL Constipation 09/12/18 07:45 10/12/18 07:44 Vancomycin HCl (Vanco rx to dose) 1 ea DAILY PRN MISC . 09/09/18 10:45 10/09/18 10:44 Vancomycin HCl/ Dextrose 250 ml @ 166.667 mls/hr Q24H IVPB 09/12/18 13:00 09/17/18 12:59 09/12/18 14:12 Slade Odonnell MD Sep 12, 2018 17:23
[2018-09-12 20:00] VITALS: BP 143/60
[2018-09-13] VITALS: BP 132/59
--- NOTE | 2018-09-13 02:30 | Progress Note ---
DATE: 09/12/2018 CARDIOLOGY PROGRESS NOTE SUBJECTIVE: The patient remains in the intensive care unit. He requires BiPAP intermittently. OBJECTIVE: VITAL SIGNS: Blood pressure parameters 151/70, heart rate 54-68, respiratory rate 18-28. No fevers. LUNGS: Coarse breath sounds. Rhonchi. HEART: Regular rhythm and rate. Normal S1, S2. SKIN: Suprapubic catheter, G-tube intact. EXTREMITIES: Trace edema. IMPRESSION: 1. Respiratory failure. 2. Sepsis with shock. 3. Status post removal of retained peritoneal catheter. 4. Dysphagia with G-tube. 5. Sinus bradycardia. 6. Acute on chronic diastolic congestive heart failure. 7. Anemia. 8. Severe protein-calorie malnutrition. 9. Hypoxia. PLAN: 1. Wean off BiPAP. 2. Antimicrobials. 3. No indication for pacing. 4. Continue thyroid replacement. 5. Recheck TSH every 4 weeks. 6. DVT prophylaxis. 7. Nutrition by G-tube. 8. Suprapubic catheter care. Bryon Ramirez M.D. DR: Josué JOB#: [id number] CC:
[2018-09-13 04:00] VITALS: BP 148/65
[2018-09-13] MEDS: Levothyroxine 125mcg tab ORAL SCH (05:59)
[2018-09-13] MEDS: NovoLOG Insulin Flexpen SUBQ SCH ×4 (06:00→23:51)
[2018-09-13 08:00] VITALS: BP 134/68
[2018-09-13] MEDS: levETIRAcetam 500mg/5ml Liquid GT SCH ×2 (09:16→20:15)
[2018-09-13] MEDS: Docusate 250mg cap ORAL SCH (09:16)
[2018-09-13] MEDS: Aspirin Baby 81mg GT SCH (09:16)
[2018-09-13] MEDS: Heparin 5000 units/ml inj SUBQ SCH ×2 (09:17→20:16)
--- NOTE | 2018-09-13 10:16 | Urology Progress Note ---
Assessment/Plan Assessment/Plan 1. Urinary retention with chronic suprapubic tube. 2. Benign prostatic hypertrophy history. 3. Neurogenic bladder. 4. Urinary tract infection and colonization. 5. Hematuria. 6. Proteinuria. keep SP tube, last exchanged 08/23 hand irrigate PRN cont with abx as ordered cysto later consider recheck urine cx at some point Subjective Allergies: Coded Allergies: No Known Allergies (Unverified , 06/17/18) Subjective all noted, peritoneal cath removed 09/01, moved to step down Objective Last 24 Hour Vital Signs Date Time Temp Pulse Resp B/P (MAP) Pulse Ox O2 Delivery O2 Flow Rate FiO2 09/13/18 09:31 57 09/13/18 08:00 97.4 59 22 134/68 (90) 100 97.4 09/13/18 08:00 Nasal Cannula 2.0 09/13/18 08:00 Nasal Cannula 1.0 24 09/13/18 07:59 98 Nasal Cannula 1.0 24 09/13/18 05:24 55 15 100 Full Face 35 09/13/18 04:00 97.2 59 24 148/65 (92) 100 97.2 09/13/18 04:00 35 09/13/18 04:00 Nasal Cannula 2.0 09/13/18 03:59 55 09/13/18 03:02 59 24 100 Full Face 35 09/13/18 00:58 64 23 98 Full Face 35 09/13/18 00:00 Nasal Cannula 2.0 09/13/18 00:00 97.0 59 20 132/59 (83) 98 97.0 09/12/18 23:30 58 09/12/18 23:24 67 17 99 Full Face 35 09/12/18 20:00 97.0 63 24 143/60 (87) 100 97.0 09/12/18 20:00 Nasal Cannula 2.0 09/12/18 20:00 2.0 09/12/18 19:20 72 09/12/18 19:08 Nasal Cannula 2.0 28 09/12/18 19:07 98 Nasal Cannula 2.0 28 09/12/18 16:00 51 09/12/18 16:00 98.1 77 21 148/73 (98) 98 98.1 09/12/18 16:00 2.0 09/12/18 16:00 Nasal Cannula 2.0 09/12/18 12:00 Nasal Cannula 2.0 09/12/18 12:00 2.0 09/12/18 12:00 97.3 59 20 120/62 (81) 100 97.3 09/12/18 12:00 57 Intake and Output 09/12/18 09/13/18 19:00 07:00 Intake Total 1323.334 ml 960 ml Output Total 1600 ml Balance -276.666 ml 960 ml Intake Free Water 180 ml 60 ml IV Total 333.334 ml Tube Feeding 810 ml 780 ml Other 120 ml Output Urine Total 1600 ml Microbiology Date/Time Source Procedure Growth Status 09/08/18 19:20 Blood Blood Culture - Preliminary NO GROWTH AFTER 4 DAYS Resulted 09/08/18 22:00 Wound Gram Stain - Final Complete 09/08/18 22:00 Wound Culture - Final Staphylococcus Aureus - Mrsa Staphylococcus Sp Coag Neg Complete 09/09/18 15:20 Sputum Gram Stain - Final Complete 09/09/18 15:20 Sputum Culture - Final Lynn Tropicalis Usual Respiratory Krissy Complete 08/25/18 17:00 Stool Clostridium difficile Toxin Assay - Final Complete 08/21/18 15:15 Urine,Clean Catch Urine Culture - Final Providencia Stuartii Complete 09/01/18 15:56 Abdominal Abscess Gram Stain - Final Complete 09/01/18 15:56 Aerobic Culture - Final Escherichia Coli - Esbl Providencia Stuartii Usual Skin Krissy Complete 09/01/18 15:56 Abdominal Abscess Anaerobic Culture - Final NO ANAEROBES ISOLATED Complete Current Medications Medications (Trade) Dose Ordered Sig/Benjamin Route PRN Reason Start Time Stop Time Status Last Admin Dose Admin Acetaminophen (Tylenol) 650 mg Q4H PRN ORAL Mild Pain/Temp > 100.5 09/09/18 09:00 09/27/18 08:59 Albuterol/ Ipratropium (Albuterol/ Ipratropium) 3 ml Q6H PRN HHN Bronchospasm 09/09/18 09:00 09/14/18 08:59 Aspirin (ASA) 81 mg DAILY GT 09/09/18 09:00 09/22/18 08:59 09/13/18 09:16 Bisacodyl (Dulcolax) 10 mg DAILYPRN PRN RECTAL Constipation 09/12/18 07:45 10/12/18 07:44 Dextrose (Dextrose 50%) 25 ml Q30M PRN IV Hypoglycemia 09/09/18 09:00 09/20/18 08:59 Dextrose (Dextrose 50%) 50 ml Q30M PRN IV Hypoglycemia 09/09/18 09:00 09/20/18 08:59 Docusate Sodium (Colace) 250 mg BID ORAL 09/12/18 09:00 10/12/18 08:59 09/13/18 09:16 Heparin Sodium (Porcine) (Heparin 5000 units/ml) 5,000 units EVERY 12 HOURS SUBQ 09/09/18 09:00 09/20/18 20:59 09/13/18 09:17 Insulin Aspart (NovoLOG) EVERY 6 HOURS SUBQ 09/09/18 12:00 09/22/18 11:59 09/13/18 06:00 Lansoprazole (Prevacid) 30 mg DAILY GT 09/09/18 09:00 09/24/18 08:59 09/13/18 09:16 Levetiracetam (Keppra) 750 mg Q12HR GT 09/09/18 09:00 10/04/18 08:59 09/13/18 09:16 Levothyroxine Sodium (Synthroid) 125 mcg DAILY@0630 ORAL 09/10/18 06:30 09/23/18 06:29 09/13/18 05:59 Magnesium Hydroxide (Mom) 30 ml DAILYPRN PRN ORAL Constipation 09/12/18 07:45 10/12/18 07:44 Vancomycin HCl (Vanco rx to dose) 1 ea DAILY PRN MISC . 09/09/18 10:45 10/09/18 10:44 Vancomycin HCl/ Dextrose 250 ml @ 166.667 mls/hr Q24H IVPB 09/12/18 13:00 09/17/18 12:59 09/12/18 14:12 Laboratory Tests 09/12/18 10:45: Vancomycin Level Trough 11.9 Height (Feet): 5 Height (Inches): 5.00 Weight (Pounds): 128 Objective exam stable, urine clearing head CT noted CXR noted ALEJANDRO COLLIER Sep 13, 2018 10:16
--- NOTE | 2018-09-13 11:32 | Infectious Diseases Prog Note ---
Assessment/Plan Assessment/Plan antibiotics : iv vancomycin A 1. peritoneal abscess s/p evacuation with providencia, e.coli s/p rx 2. s/p removal of broken peritoneal catheter 3. leucocytosis resolved 4. diabetes mellitus 5. hypertension 6. dementia 7. respiratory failure resolved p 1. d/c iv vancomycin 2, observe off antibiotics Subjective ROS Limited/Unobtainable: Yes Allergies: Coded Allergies: No Known Allergies (Unverified , 06/17/18) Objective Vital Signs Last 24 Hour Vital Signs Date Time Temp Pulse Resp B/P (MAP) Pulse Ox O2 Delivery O2 Flow Rate FiO2 09/13/18 09:31 57 09/13/18 08:00 97.4 59 22 134/68 (90) 100 97.4 09/13/18 08:00 Nasal Cannula 2.0 09/13/18 08:00 Nasal Cannula 1.0 24 09/13/18 07:59 98 Nasal Cannula 1.0 24 09/13/18 05:24 55 15 100 Full Face 35 09/13/18 04:00 97.2 59 24 148/65 (92) 100 97.2 09/13/18 04:00 35 09/13/18 04:00 Nasal Cannula 2.0 09/13/18 03:59 55 09/13/18 03:02 59 24 100 Full Face 35 09/13/18 00:58 64 23 98 Full Face 35 09/13/18 00:00 Nasal Cannula 2.0 09/13/18 00:00 97.0 59 20 132/59 (83) 98 97.0 09/12/18 23:30 58 09/12/18 23:24 67 17 99 Full Face 35 09/12/18 20:00 97.0 63 24 143/60 (87) 100 97.0 09/12/18 20:00 Nasal Cannula 2.0 09/12/18 20:00 2.0 09/12/18 19:20 72 09/12/18 19:08 Nasal Cannula 2.0 28 09/12/18 19:07 98 Nasal Cannula 2.0 28 09/12/18 16:00 51 09/12/18 16:00 98.1 77 21 148/73 (98) 98 98.1 09/12/18 16:00 2.0 09/12/18 16:00 Nasal Cannula 2.0 09/12/18 12:00 Nasal Cannula 2.0 09/12/18 12:00 2.0 09/12/18 12:00 97.3 59 20 120/62 (81) 100 97.3 09/12/18 12:00 57 Height (Feet): 5 Height (Inches): 5.00 Weight (Pounds): 128 Respiratory/Chest: lungs clear Cardiovascular: normal rate, regular rhythm, no gallop/murmur Abdomen: soft, non tender, other - GT Extremities: no edema Current Medications Medications (Trade) Dose Ordered Sig/Benjamin Route PRN Reason Start Time Stop Time Status Last Admin Dose Admin Acetaminophen (Tylenol) 650 mg Q4H PRN ORAL Mild Pain/Temp > 100.5 09/09/18 09:00 09/27/18 08:59 Albuterol/ Ipratropium (Albuterol/ Ipratropium) 3 ml Q6H PRN HHN Bronchospasm 09/09/18 09:00 09/14/18 08:59 Aspirin (ASA) 81 mg DAILY GT 09/09/18 09:00 09/22/18 08:59 09/13/18 09:16 Bisacodyl (Dulcolax) 10 mg DAILYPRN PRN RECTAL Constipation 09/12/18 07:45 10/12/18 07:44 Dextrose (Dextrose 50%) 25 ml Q30M PRN IV Hypoglycemia 09/09/18 09:00 09/20/18 08:59 Dextrose (Dextrose 50%) 50 ml Q30M PRN IV Hypoglycemia 09/09/18 09:00 09/20/18 08:59 Docusate Sodium (Colace) 250 mg BID ORAL 09/12/18 09:00 10/12/18 08:59 09/13/18 09:16 Heparin Sodium (Porcine) (Heparin 5000 units/ml) 5,000 units EVERY 12 HOURS SUBQ 09/09/18 09:00 09/20/18 20:59 09/13/18 09:17 Insulin Aspart (NovoLOG) EVERY 6 HOURS SUBQ 09/09/18 12:00 09/22/18 11:59 09/13/18 06:00 Lansoprazole (Prevacid) 30 mg DAILY GT 09/09/18 09:00 09/24/18 08:59 09/13/18 09:16 Levetiracetam (Keppra) 750 mg Q12HR GT 09/09/18 09:00 10/04/18 08:59 09/13/18 09:16 Levothyroxine Sodium (Synthroid) 125 mcg DAILY@0630 ORAL 09/10/18 06:30 09/23/18 06:29 09/13/18 05:59 Magnesium Hydroxide (Mom) 30 ml DAILYPRN PRN ORAL Constipation 09/12/18 07:45 10/12/18 07:44 Vancomycin HCl (Vanco rx to dose) 1 ea DAILY PRN MISC . 09/09/18 10:45 10/09/18 10:44 Vancomycin HCl/ Dextrose 250 ml @ 166.667 mls/hr Q24H IVPB 09/12/18 13:00 09/17/18 12:59 09/12/18 14:12 Barbra Oshea MD Sep 13, 2018 11:32
[2018-09-13 12:00] VITALS: BP 153/72
--- NOTE | 2018-09-13 12:31 | General Progress Note ---
Assessment/Plan Problem List: (1) UTI (urinary tract infection) ICD Codes: N39.0 - Urinary tract infection, site not specified SNOMED: 49668408 Qualifiers: Qualified Codes: T83.511A - Infection and inflammatory reaction due to indwelling urethral catheter, initial encounter; N39.0 - Urinary tract infection , site not specified (2) Severe sepsis ICD Codes: A41.9 - Sepsis, unspecified organism; R65.20 - Severe sepsis without septic shock SNOMED: 21170825 (3) NSTEMI (non-ST elevated myocardial infarction) ICD Codes: I21.4 - Non-ST elevation (NSTEMI) myocardial infarction SNOMED: 413747401 (4) Right lower lobe pneumonia ICD Codes: J18.1 - Lobar pneumonia, unspecified organism SNOMED: 483530821 Qualifiers: (5) Elevated lactic acid level ICD Codes: R79.89 - Other specified abnormal findings of blood chemistry SNOMED: 0858093 Status: stable, progressing Assessment/Plan monitor abg bipap per pulm- nightly and prn monitor off abx per id jonathan care stable currently dc planning Subjective ROS Limited/Unobtainable: No Constitutional: Reports: malaise, weakness HEENT: Reports: no symptoms Cardiovascular: Reports: no symptoms Respiratory: Reports: no symptoms Gastrointestinal/Abdominal: Reports: difficulty swallowing Genitourinary: Reports: no symptoms Neurologic/Psychiatric: Reports: pre-existing deficit Endocrine: Reports: no symptoms Hematologic/Lymphatic: Reports: anemia Allergies: Coded Allergies: No Known Allergies (Unverified , 06/17/18) All Systems: reviewed and negative except above Subjective currently off bipap. more alert. follows some simple commands. abg better. no fevers. cxr noted. no congestion or cough, off abx now. Objective Last 24 Hour Vital Signs Date Time Temp Pulse Resp B/P (MAP) Pulse Ox O2 Delivery O2 Flow Rate FiO2 09/13/18 12:00 97.1 63 24 153/72 (99) 99 97.1 09/13/18 12:00 Nasal Cannula 2.0 09/13/18 09:31 57 09/13/18 08:00 97.4 59 22 134/68 (90) 100 97.4 09/13/18 08:00 Nasal Cannula 2.0 09/13/18 08:00 Nasal Cannula 1.0 24 09/13/18 07:59 98 Nasal Cannula 1.0 24 09/13/18 05:24 55 15 100 Full Face 35 09/13/18 04:00 97.2 59 24 148/65 (92) 100 97.2 09/13/18 04:00 35 09/13/18 04:00 Nasal Cannula 2.0 09/13/18 03:59 55 09/13/18 03:02 59 24 100 Full Face 35 09/13/18 00:58 64 23 98 Full Face 35 09/13/18 00:00 Nasal Cannula 2.0 09/13/18 00:00 97.0 59 20 132/59 (83) 98 97.0 09/12/18 23:30 58 09/12/18 23:24 67 17 99 Full Face 35 09/12/18 20:00 97.0 63 24 143/60 (87) 100 97.0 09/12/18 20:00 Nasal Cannula 2.0 09/12/18 20:00 2.0 09/12/18 19:20 72 09/12/18 19:08 Nasal Cannula 2.0 28 09/12/18 19:07 98 Nasal Cannula 2.0 28 09/12/18 16:00 51 09/12/18 16:00 98.1 77 21 148/73 (98) 98 98.1 09/12/18 16:00 2.0 09/12/18 16:00 Nasal Cannula 2.0 Intake and Output 09/12/18 09/13/18 19:00 07:00 Intake Total 1323.334 ml 960 ml Output Total 1600 ml Balance -276.666 ml 960 ml Intake Free Water 180 ml 60 ml IV Total 333.334 ml Tube Feeding 810 ml 780 ml Other 120 ml Output Urine Total 1600 ml Height (Feet): 5 Height (Inches): 5.00 Weight (Pounds): 128 Objective General Appearance: WD/WN, off bipap. opens eyes. moans/responds Neck: supple Cardiovascular: normal rate, regular rhythm Respiratory/Chest: chest wall non-tender, lungs with farhat rhonchi Abdomen: normal bowel sounds, non tender, soft, no organomegaly Neurologic: alert, says few words Michael Zuniga MD Sep 13, 2018 12:31
--- NOTE | 2018-09-13 15:47 | Podiatric Progress Note ---
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 Is aware of where he is. Seen with nurse. Objective Exam Last 24 Hour Vital Signs Date Time Temp Pulse Resp B/P (MAP) Pulse Ox O2 Delivery O2 Flow Rate FiO2 09/13/18 12:00 97.1 63 24 153/72 (99) 99 97.1 09/13/18 12:00 Nasal Cannula 2.0 09/13/18 11:25 62 09/13/18 09:31 57 09/13/18 08:00 97.4 59 22 134/68 (90) 100 97.4 09/13/18 08:00 Nasal Cannula 2.0 09/13/18 08:00 Nasal Cannula 1.0 24 09/13/18 07:59 98 Nasal Cannula 1.0 24 09/13/18 05:24 55 15 100 Full Face 35 09/13/18 04:00 97.2 59 24 148/65 (92) 100 97.2 09/13/18 04:00 35 09/13/18 04:00 Nasal Cannula 2.0 09/13/18 03:59 55 09/13/18 03:02 59 24 100 Full Face 35 09/13/18 00:58 64 23 98 Full Face 35 09/13/18 00:00 Nasal Cannula 2.0 09/13/18 00:00 97.0 59 20 132/59 (83) 98 97.0 09/12/18 23:30 58 09/12/18 23:24 67 17 99 Full Face 35 09/12/18 20:00 97.0 63 24 143/60 (87) 100 97.0 09/12/18 20:00 Nasal Cannula 2.0 09/12/18 20:00 2.0 09/12/18 19:20 72 09/12/18 19:08 Nasal Cannula 2.0 28 09/12/18 19:07 98 Nasal Cannula 2.0 28 09/12/18 16:00 51 09/12/18 16:00 98.1 77 21 148/73 (98) 98 98.1 09/12/18 16:00 2.0 09/12/18 16:00 Nasal Cannula 2.0 Microbiology Date/Time Source Procedure Growth Status 09/08/18 19:20 Blood Blood Culture - Preliminary NO GROWTH AFTER 4 DAYS Resulted 09/08/18 22:00 Wound Gram Stain - Final Complete 09/08/18 22:00 Wound Culture - Final Staphylococcus Aureus - Mrsa Staphylococcus Sp Coag Neg Complete 09/09/18 15:20 Sputum Gram Stain - Final Complete 09/09/18 15:20 Sputum Culture - Final Lynn Tropicalis Usual Respiratory Krissy Complete 08/25/18 17:00 Stool Clostridium difficile Toxin Assay - Final Complete 08/21/18 15:15 Urine,Clean Catch Urine Culture - Final Providencia Stuartii Complete 09/01/18 15:56 Abdominal Abscess Gram Stain - Final Complete 09/01/18 15:56 Aerobic Culture - Final Escherichia Coli - Esbl Providencia Stuartii Usual Skin Krissy Complete 09/01/18 15:56 Abdominal Abscess Anaerobic Culture - Final NO ANAEROBES ISOLATED Complete Dermatological Dermatological Narrative Right 2nd toe nearly resolved Left heel more granular, peripheral eschar noted. no bone or tendon exposed. no signs of infection Flo De Jesus DPReva Sep 13, 2018 15:47
[2018-09-13 16:00] VITALS: BP 151/67
[2018-09-13] MEDS ORDERED: NS 275ml ONE (18:21)
[2018-09-13] MEDS ORDERED: Tubing IV Secondary IV ONE (18:21)
--- NOTE | 2018-09-13 19:41 | Pulmonology Progress Note ---
Assessment/Plan Assessment/Plan IMPRESSION: 1. Respiratory failure, acute 2. Sepsis with shock. s/p 3. Dysphagia. 4. G-tube. 5. CVA. 6. Altered mental status. 7. Aspiration pneumonia 8. Severe protein-calorie malnutrition. 9. Diabetes. 10. pneumonia 11. pulmonary congestion PLAN respiratory care -BIPAP as needed aspiration precautions noted monitor ABG reviewed CXR- ordered suction PRN antibiotics management reviewed close follow up for change appears more comfortable on follow up visit DVT prophylaxis impression, plan, and exam edited and reviewed in detail care discussed with RN Subjective ROS Limited/Unobtainable: Yes Allergies: Coded Allergies: No Known Allergies (Unverified , 06/17/18) Subjective reviewed care off BIPAP when seen; was on earlier no respiratory distress confused and same Objective Last 24 Hour Vital Signs Date Time Temp Pulse Resp B/P (MAP) Pulse Ox O2 Delivery O2 Flow Rate FiO2 09/13/18 16:00 Nasal Cannula 1.0 09/13/18 16:00 98.2 59 22 151/67 (95) 98 98.2 09/13/18 15:33 72 09/13/18 12:00 97.1 63 24 153/72 (99) 99 97.1 09/13/18 12:00 Nasal Cannula 1.0 09/13/18 11:25 62 09/13/18 09:31 57 09/13/18 08:00 97.4 59 22 134/68 (90) 100 97.4 09/13/18 08:00 Nasal Cannula 1.0 09/13/18 08:00 Nasal Cannula 1.0 24 09/13/18 07:59 98 Nasal Cannula 1.0 24 09/13/18 05:24 55 15 100 Full Face 35 09/13/18 04:00 97.2 59 24 148/65 (92) 100 97.2 09/13/18 04:00 35 09/13/18 04:00 Nasal Cannula 2.0 09/13/18 03:59 55 09/13/18 03:02 59 24 100 Full Face 35 09/13/18 00:58 64 23 98 Full Face 35 09/13/18 00:00 Nasal Cannula 2.0 09/13/18 00:00 97.0 59 20 132/59 (83) 98 97.0 09/12/18 23:30 58 09/12/18 23:24 67 17 99 Full Face 35 09/12/18 20:00 97.0 63 24 143/60 (87) 100 97.0 09/12/18 20:00 Nasal Cannula 2.0 09/12/18 20:00 2.0 Intake and Output 09/12/18 09/13/18 19:00 07:00 Intake Total 1323.334 ml 960 ml Output Total 1600 ml Balance -276.666 ml 960 ml Intake Free Water 180 ml 60 ml IV Total 333.334 ml Tube Feeding 810 ml 780 ml Other 120 ml Output Urine Total 1600 ml Objective GENERAL: Ill-appearing male, withdrawn, nonverbal. ALOC; on NC LUNGS: scattered rhonchi, moderate air entry, symmetric. CARDIAC: Normal S1, S2. RRR without murmurs, rubs, or gallops. ABDOMEN: Soft, nontender, nondistended. no distention; no HSM EXTREMITIES: No cyanosis or clubbing. no edema SKIN: noted GENITOURINARY: suprapubic catheter. NEUROLOGIC: withdrawn nonverbal at present; awake reviewed and edited Current Medications Medications (Trade) Dose Ordered Sig/Benjamin Route PRN Reason Start Time Stop Time Status Last Admin Dose Admin Acetaminophen (Tylenol) 650 mg Q4H PRN ORAL Mild Pain/Temp > 100.5 09/09/18 09:00 09/27/18 08:59 Albuterol/ Ipratropium (Albuterol/ Ipratropium) 3 ml Q6H PRN HHN Bronchospasm 09/09/18 09:00 09/14/18 08:59 Aspirin (ASA) 81 mg DAILY GT 09/09/18 09:00 09/22/18 08:59 09/13/18 09:16 Bisacodyl (Dulcolax) 10 mg DAILYPRN PRN RECTAL Constipation 09/12/18 07:45 10/12/18 07:44 Dextrose (Dextrose 50%) 25 ml Q30M PRN IV Hypoglycemia 09/09/18 09:00 09/20/18 08:59 Dextrose (Dextrose 50%) 50 ml Q30M PRN IV Hypoglycemia 09/09/18 09:00 09/20/18 08:59 Docusate Sodium (Colace) 250 mg EVERY 12 HOURS GT 09/13/18 21:00 11/22/18 20:59 Heparin Sodium (Porcine) (Heparin 5000 units/ml) 5,000 units EVERY 12 HOURS SUBQ 09/09/18 09:00 09/20/18 20:59 09/13/18 09:17 Insulin Aspart (NovoLOG) EVERY 6 HOURS SUBQ 09/09/18 12:00 09/22/18 11:59 09/13/18 17:45 Lansoprazole (Prevacid) 30 mg DAILY GT 09/09/18 09:00 09/24/18 08:59 09/13/18 09:16 Levetiracetam (Keppra) 750 mg Q12HR GT 09/09/18 09:00 10/04/18 08:59 09/13/18 09:16 Levothyroxine Sodium (Synthroid) 125 mcg DAILY@0630 ORAL 09/10/18 06:30 09/23/18 06:29 09/13/18 05:59 Magnesium Hydroxide (Mom) 30 ml DAILYPRN PRN ORAL Constipation 09/12/18 07:45 10/12/18 07:44 09/13/18 13:06 James Langston MD Sep 13, 2018 19:41
[2018-09-13 20:00] VITALS: BP 151/80
[2018-09-13] MEDS ORDERED: Docusate 100mg/10ml Liq GT SCH (21:00)
[2018-09-14] MEDS ORDERED: Albuterol/Ipratropium 3ml neb HHN PRN (03:00)
[2018-09-14 04:13] VITALS: BP 152/80
[2018-09-14] MEDS: NovoLOG Insulin Flexpen SUBQ SCH ×4 (05:41→23:54)
[2018-09-14] MEDS: Levothyroxine 125mcg tab ORAL SCH (05:42)
[2018-09-14] MEDS ORDERED: Milk of Magnesia 30ml Ud ORAL PRN (07:45)
[2018-09-14 08:00] VITALS: BP 121/61
[2018-09-14] MEDS ORDERED: NOVOLOG100 UNITS1 SUBQ (08:00)
--- NOTE | 2018-09-14 09:23 | Urology Progress Note ---
Assessment/Plan Assessment/Plan 1. Urinary retention with chronic suprapubic tube. 2. Benign prostatic hypertrophy history. 3. Neurogenic bladder. 4. Urinary tract infection and colonization. 5. Hematuria. 6. Proteinuria. keep SP tube, last exchanged 08/23 hand irrigated and do PRN s/p abx cysto later consider recheck urine cx at some point Subjective Allergies: Coded Allergies: No Known Allergies (Unverified , 06/17/18) Subjective all noted, peritoneal cath removed 09/01, moved to step down Objective Last 24 Hour Vital Signs Date Time Temp Pulse Resp B/P (MAP) Pulse Ox O2 Delivery O2 Flow Rate FiO2 09/14/18 08:00 97.7 67 16 121/61 (81) 97 97.7 09/14/18 05:14 61 18 98 Full Face 35 09/14/18 04:13 97.4 83 16 152/80 (104) 93 97.4 09/14/18 03:44 59 14 98 Full Face 35 09/14/18 01:30 50 20 98 Facial 35 09/13/18 23:00 56 22 100 Facial 35 09/13/18 20:00 Nasal Cannula 1.0 09/13/18 20:00 97.7 75 20 151/80 (103) 99 97.7 09/13/18 19:30 Nasal Cannula 1.0 24 09/13/18 19:30 97 Nasal Cannula 1.0 24 09/13/18 19:25 66 09/13/18 16:00 Nasal Cannula 1.0 09/13/18 16:00 98.2 59 22 151/67 (95) 98 98.2 09/13/18 15:33 72 09/13/18 12:00 97.1 63 24 153/72 (99) 99 97.1 09/13/18 12:00 Nasal Cannula 1.0 09/13/18 11:25 62 09/13/18 09:31 57 Microbiology Date/Time Source Procedure Growth Status 09/08/18 19:20 Blood Blood Culture - Final NO GROWTH AFTER 5 DAYS Complete 09/08/18 22:00 Wound Gram Stain - Final Complete 09/08/18 22:00 Wound Culture - Final Staphylococcus Aureus - Mrsa Staphylococcus Sp Coag Neg Complete 09/09/18 15:20 Sputum Gram Stain - Final Complete 09/09/18 15:20 Sputum Culture - Final Lynn Tropicalis Usual Respiratory Krissy Complete 08/25/18 17:00 Stool Clostridium difficile Toxin Assay - Final Complete 08/21/18 15:15 Urine,Clean Catch Urine Culture - Final Providencia Stuartii Complete 09/01/18 15:56 Abdominal Abscess Gram Stain - Final Complete 09/01/18 15:56 Aerobic Culture - Final Escherichia Coli - Esbl Providencia Stuartii Usual Skin Krissy Complete 09/01/18 15:56 Abdominal Abscess Anaerobic Culture - Final NO ANAEROBES ISOLATED Complete Current Medications Medications (Trade) Dose Ordered Sig/Benjamin Route PRN Reason Start Time Stop Time Status Last Admin Dose Admin Acetaminophen (Tylenol) 650 mg Q4H PRN ORAL Mild Pain/Temp > 100.5 09/14/18 01:00 09/27/18 08:59 Aspirin (ASA) 81 mg DAILY GT 09/14/18 09:00 09/22/18 08:59 Bisacodyl (Dulcolax) 10 mg DAILYPRN PRN RECTAL Constipation 09/14/18 07:45 10/12/18 07:44 Dextrose (Dextrose 50%) 25 ml Q30M PRN IV Hypoglycemia 09/13/18 22:00 09/20/18 08:59 Dextrose (Dextrose 50%) 50 ml Q30M PRN IV Hypoglycemia 09/13/18 22:00 09/20/18 08:59 Docusate Sodium (Colace) 250 mg EVERY 12 HOURS GT 09/14/18 09:00 10/13/18 20:59 Heparin Sodium (Porcine) (Heparin 5000 units/ml) 5,000 units EVERY 12 HOURS SUBQ 09/14/18 09:00 09/20/18 20:59 Insulin Aspart (NovoLOG) EVERY 6 HOURS SUBQ 09/14/18 00:00 09/22/18 11:59 09/14/18 05:41 Lansoprazole (Prevacid) 30 mg DAILY GT 09/14/18 09:00 09/24/18 08:59 Levetiracetam (Keppra) 750 mg Q12HR GT 09/14/18 09:00 10/04/18 08:59 Levothyroxine Sodium (Synthroid) 125 mcg DAILY@0630 ORAL 09/14/18 06:30 09/23/18 06:29 09/14/18 05:42 Magnesium Hydroxide (Mom) 30 ml DAILYPRN PRN ORAL Constipation 09/14/18 07:45 10/12/18 07:44 Intake and Output 09/13/18 09/14/18 19:00 07:00 Intake Total 900 ml 580 ml Output Total 1200 ml 1100 ml Balance -300 ml -520 ml Intake Free Water 60 ml Tube Feeding 780 ml 520 ml Other 120 ml Output Urine Total 1200 ml 1100 ml # Bowel Movements 1 Height (Feet): 5 Height (Inches): 5.00 Weight (Pounds): 126 Objective exam stable, urine clearing head CT noted CXR noted ALEJANDRO COLLIER Sep 14, 2018 09:22
[2018-09-14] MEDS: Aspirin Baby 81mg GT SCH (10:03)
[2018-09-14] MEDS: levETIRAcetam 500mg/5ml Liquid GT SCH ×2 (10:04→21:04)
[2018-09-14] MEDS: Heparin 5000 units/ml inj SUBQ SCH ×2 (10:05→21:04)
[2018-09-14] MEDS: Docusate 100mg/10ml Liq GT SCH ×2 (10:05→21:04)
--- NOTE | 2018-09-14 11:07 | Infectious Diseases Prog Note ---
Assessment/Plan Assessment/Plan antibiotics : none A 1. peritoneal abscess s/p evacuation with providencia, e.coli s/p rx 2. s/p removal of broken peritoneal catheter 3. leucocytosis resolved 4. diabetes mellitus 5. hypertension 6. dementia 7. respiratory failure resolved p 1. observe off antibiotics 2. UA and urine culture Subjective ROS Limited/Unobtainable: Yes Allergies: Coded Allergies: No Known Allergies (Unverified , 06/17/18) Objective Vital Signs Last 24 Hour Vital Signs Date Time Temp Pulse Resp B/P (MAP) Pulse Ox O2 Delivery O2 Flow Rate FiO2 09/14/18 08:00 97.7 67 16 121/61 (81) 97 97.7 09/14/18 05:14 61 18 98 Full Face 35 09/14/18 04:13 97.4 83 16 152/80 (104) 93 97.4 09/14/18 03:44 59 14 98 Full Face 35 09/14/18 01:30 50 20 98 Facial 35 09/13/18 23:00 56 22 100 Facial 35 09/13/18 20:00 Nasal Cannula 1.0 09/13/18 20:00 97.7 75 20 151/80 (103) 99 97.7 09/13/18 19:30 Nasal Cannula 1.0 24 09/13/18 19:30 97 Nasal Cannula 1.0 24 09/13/18 19:25 66 09/13/18 16:00 Nasal Cannula 1.0 09/13/18 16:00 98.2 59 22 151/67 (95) 98 98.2 09/13/18 15:33 72 09/13/18 12:00 97.1 63 24 153/72 (99) 99 97.1 09/13/18 12:00 Nasal Cannula 1.0 09/13/18 11:25 62 Height (Feet): 5 Height (Inches): 5.00 Weight (Pounds): 126 Respiratory/Chest: lungs clear Cardiovascular: normal rate, regular rhythm, no gallop/murmur Abdomen: soft, non tender, other - GT Extremities: no edema Current Medications Medications (Trade) Dose Ordered Sig/Benjamin Route PRN Reason Start Time Stop Time Status Last Admin Dose Admin Acetaminophen (Tylenol) 650 mg Q4H PRN ORAL Mild Pain/Temp > 100.5 09/14/18 01:00 09/27/18 08:59 09/14/18 10:04 Aspirin (ASA) 81 mg DAILY GT 09/14/18 09:00 09/22/18 08:59 09/14/18 10:03 Bisacodyl (Dulcolax) 10 mg DAILYPRN PRN RECTAL Constipation 09/14/18 07:45 10/12/18 07:44 Dextrose (Dextrose 50%) 25 ml Q30M PRN IV Hypoglycemia 09/13/18 22:00 09/20/18 08:59 Dextrose (Dextrose 50%) 50 ml Q30M PRN IV Hypoglycemia 09/13/18 22:00 09/20/18 08:59 Docusate Sodium (Colace) 250 mg EVERY 12 HOURS GT 09/14/18 09:00 10/13/18 20:59 Heparin Sodium (Porcine) (Heparin 5000 units/ml) 5,000 units EVERY 12 HOURS SUBQ 09/14/18 09:00 09/20/18 20:59 09/14/18 10:05 Insulin Aspart (NovoLOG) EVERY 6 HOURS SUBQ 09/14/18 00:00 09/22/18 11:59 09/14/18 05:41 Lansoprazole (Prevacid) 30 mg DAILY GT 09/14/18 09:00 09/24/18 08:59 09/14/18 10:04 Levetiracetam (Keppra) 750 mg Q12HR GT 09/14/18 09:00 10/04/18 08:59 09/14/18 10:04 Levothyroxine Sodium (Synthroid) 125 mcg DAILY@0630 ORAL 09/14/18 06:30 09/23/18 06:29 09/14/18 05:42 Magnesium Hydroxide (Mom) 30 ml DAILYPRN PRN ORAL Constipation 09/14/18 07:45 10/12/18 07:44 Barbra Oshea MD Sep 14, 2018 11:07
[2018-09-14 12:00] VITALS: BP 108/60
[2018-09-14 12:59] LABS: APPEARANCE,URINE SLIGHTLY CLOUDY; BILIRUBIN, URINE NEGATIVE (NEGATIVE); GLUCOSE, URINE (UA) NEGATIVE (NEGATIVE); KETONES,URINE NEGATIVE (NEGATIVE); LEUKOCYTE ESTERASE ,URINE 3+ (NEGATIVE); NITRITE,URINE NEGATIVE (NEGATIVE); PH,URINE 5 (4.5-8.0); PROTEIN,URINE 2+ (NEGATIVE); UROBILINOGEN,URINE NORMAL MG/DL (0.0-1.0)
[2018-09-14 13:09] LABS: COLOR,URINE YELLOW
[2018-09-14 16:00] VITALS: BP 109/54
[2018-09-14 20:00] VITALS: BP 140/89
--- NOTE | 2018-09-14 22:20 | Pulmonology Progress Note ---
Assessment/Plan Assessment/Plan Assessment/Plan IMPRESSION: 1. Respiratory failure, acute, improved, on BiPAP PRN 2. Sepsis with shock. s/p 3. Dysphagia. 4. G-tube. 5. CVA. 6. Altered mental status. 7. Aspiration pneumonia 8. Severe protein-calorie malnutrition. 9. Diabetes. 10. pneumonia 11. pulmonary congestion PLAN respiratory care -BIPAP as needed aspiration precautions noted monitor ABG reviewed CXR- ordered suction PRN antibiotics management reviewed close follow up for change appears more comfortable on follow up visit DVT prophylaxis Await SNF DC impression, plan, and exam edited and reviewed in detail care discussed with RN Subjective ROS Limited/Unobtainable: Yes Allergies: Coded Allergies: No Known Allergies (Unverified , 06/17/18) Subjective reviewed care off BIPAP when seen; was on earlier no respiratory distress confused and same Objective Last 24 Hour Vital Signs Date Time Temp Pulse Resp B/P (MAP) Pulse Ox O2 Delivery O2 Flow Rate FiO2 09/13/18 16:00 Nasal Cannula 1.0 09/13/18 16:00 98.2 59 22 151/67 (95) 98 98.2 09/13/18 15:33 72 09/13/18 12:00 97.1 63 24 153/72 (99) 99 97.1 09/13/18 12:00 Nasal Cannula 1.0 09/13/18 11:25 62 09/13/18 09:31 57 09/13/18 08:00 97.4 59 22 134/68 (90) 100 97.4 09/13/18 08:00 Nasal Cannula 1.0 09/13/18 08:00 Nasal Cannula 1.0 24 09/13/18 07:59 98 Nasal Cannula 1.0 24 09/13/18 05:24 55 15 100 Full Face 35 09/13/18 04:00 97.2 59 24 148/65 (92) 100 97.2 09/13/18 04:00 35 09/13/18 04:00 Nasal Cannula 2.0 09/13/18 03:59 55 09/13/18 03:02 59 24 100 Full Face 35 09/13/18 00:58 64 23 98 Full Face 35 09/13/18 00:00 Nasal Cannula 2.0 09/13/18 00:00 97.0 59 20 132/59 (83) 98 97.0 09/12/18 23:30 58 09/12/18 23:24 67 17 99 Full Face 35 09/12/18 20:00 97.0 63 24 143/60 (87) 100 97.0 09/12/18 20:00 Nasal Cannula 2.0 09/12/18 20:00 2.0 Intake and Output 09/12/18 09/13/18 19:00 07:00 Intake Total 1323.334 ml 960 ml Output Total 1600 ml Balance -276.666 ml 960 ml Intake Free Water 180 ml 60 ml IV Total 333.334 ml Tube Feeding 810 ml 780 ml Other 120 ml Output Urine Total 1600 ml Objective GENERAL: Ill-appearing male, withdrawn, nonverbal. ALOC; on NC LUNGS: scattered rhonchi, moderate air entry, symmetric. CARDIAC: Normal S1, S2. RRR without murmurs, rubs, or gallops. ABDOMEN: Soft, nontender, nondistended. no distention; no HSM EXTREMITIES: No cyanosis or clubbing. no edema SKIN: noted GENITOURINARY: suprapubic catheter. NEUROLOGIC: withdrawn nonverbal at present; awake reviewed and edited Current Medications Medications (Trade) Dose Ordered Sig/Benjamin Route PRN Reason Start Time Stop Time Status Last Admin Dose Admin Acetaminophen (Tylenol) 650 mg Q4H PRN ORAL Mild Pain/Temp > 100.5 09/09/18 09:00 09/27/18 08:59 Albuterol/ Ipratropium (Albuterol/ Ipratropium) 3 ml Q6H PRN HHN Bronchospasm 09/09/18 09:00 09/14/18 08:59 Aspirin (ASA) 81 mg DAILY GT 09/09/18 09:00 09/22/18 08:59 09/13/18 09:16 Bisacodyl (Dulcolax) 10 mg DAILYPRN PRN RECTAL Constipation 09/12/18 07:45 10/12/18 07:44 Dextrose (Dextrose 50%) 25 ml Q30M PRN IV Hypoglycemia 09/09/18 09:00 09/20/18 08:59 Dextrose (Dextrose 50%) 50 ml Q30M PRN IV Hypoglycemia 09/09/18 09:00 09/20/18 08:59 Docusate Sodium (Colace) 250 mg EVERY 12 HOURS GT 09/13/18 21:00 10/13/18 20:59 Heparin Sodium (Porcine) (Heparin 5000 units/ml) 5,000 units EVERY 12 HOURS SUBQ 09/09/18 09:00 09/20/18 20:59 09/13/18 09:17 Insulin Aspart (NovoLOG) EVERY 6 HOURS SUBQ 09/09/18 12:00 09/22/18 11:59 09/13/18 17:45 Lansoprazole (Prevacid) 30 mg DAILY GT 09/09/18 09:00 09/24/18 08:59 09/13/18 09:16 Levetiracetam (Keppra) 750 mg Q12HR GT 09/09/18 09:00 10/04/18 08:59 09/13/18 09:16 Levothyroxine Sodium (Synthroid) 125 mcg DAILY@0630 ORAL 09/10/18 06:30 09/23/18 06:29 09/13/18 05:59 Magnesium Hydroxide (Mom) 30 ml DAILYPRN PRN ORAL Constipation 09/12/18 07:45 10/12/18 07:44 09/13/18 13:06 Subjective ROS Limited/Unobtainable: No Allergies: Coded Allergies: No Known Allergies (Unverified , 06/17/18) Objective Last 24 Hour Vital Signs Date Time Temp Pulse Resp B/P (MAP) Pulse Ox O2 Delivery O2 Flow Rate FiO2 09/14/18 20:00 98.2 61 20 140/89 (106) 98 09/14/18 19:57 98 Nasal Cannula 2.0 28 09/14/18 19:57 Nasal Cannula 2.0 28 09/14/18 16:00 98.8 101 19 109/54 (72) 98 09/14/18 12:00 98.1 60 16 108/60 (76) 96 98.1 09/14/18 09:00 Nasal Cannula 2.0 09/14/18 08:07 Nasal Cannula 2.0 28 09/14/18 08:06 98 Nasal Cannula 2.0 28 09/14/18 08:00 97.7 67 16 121/61 (81) 97 97.7 09/14/18 05:14 61 18 98 Full Face 35 09/14/18 04:13 97.4 83 16 152/80 (104) 93 97.4 09/14/18 03:44 59 14 98 Full Face 35 09/14/18 01:30 50 20 98 Facial 35 09/13/18 23:00 56 22 100 Facial 35 Intake and Output 09/13/18 09/14/18 19:00 07:00 Intake Total 900 ml 580 ml Output Total 1200 ml 1100 ml Balance -300 ml -520 ml Intake Free Water 60 ml Tube Feeding 780 ml 520 ml Other 120 ml Output Urine Total 1200 ml 1100 ml # Bowel Movements 1 Laboratory Tests 09/14/18 12:30: Urine Color Yellow, Urine Appearance Slightly cloudy, Urine pH 5, Urine Specific [place] 1.015, Urine Protein 2+H, Urine Glucose (UA) Negative, Urine Ketones Negative, Urine Blood 2+H, Urine Nitrite Negative, Urine Bilirubin Negative, Urine Urobilinogen Normal, Urine Leukocyte Esterase 3+H, Urine RBC 2- 4H, Urine WBC 20-30H, Urine Squamous Epithelial Cells Few, Urine Bacteria Few, Urine Yeast ManyH Current Medications Medications (Trade) Dose Ordered Sig/Benjamin Route PRN Reason Start Time Stop Time Status Last Admin Dose Admin Acetaminophen (Tylenol) 650 mg Q4H PRN ORAL Mild Pain/Temp > 100.5 09/14/18 01:00 09/27/18 08:59 09/14/18 10:04 Aspirin (ASA) 81 mg DAILY GT 09/14/18 09:00 09/22/18 08:59 09/14/18 10:03 Bisacodyl (Dulcolax) 10 mg DAILYPRN PRN RECTAL Constipation 09/14/18 07:45 10/12/18 07:44 Dextrose (Dextrose 50%) 25 ml Q30M PRN IV Hypoglycemia 09/13/18 22:00 09/20/18 08:59 Dextrose (Dextrose 50%) 50 ml Q30M PRN IV Hypoglycemia 09/13/18 22:00 09/20/18 08:59 Docusate Sodium (Colace) 250 mg EVERY 12 HOURS GT 09/14/18 09:00 10/13/18 20:59 09/14/18 21:04 Heparin Sodium (Porcine) (Heparin 5000 units/ml) 5,000 units EVERY 12 HOURS SUBQ 09/14/18 09:00 09/20/18 20:59 09/14/18 21:04 Insulin Aspart (NovoLOG) EVERY 6 HOURS SUBQ 09/14/18 00:00 09/22/18 11:59 09/14/18 17:52 Lansoprazole (Prevacid) 30 mg DAILY GT 09/14/18 09:00 09/24/18 08:59 09/14/18 10:04 Levetiracetam (Keppra) 750 mg Q12HR GT 09/14/18 09:00 10/04/18 08:59 09/14/18 21:04 Levothyroxine Sodium (Synthroid) 125 mcg DAILY@0630 ORAL 09/14/18 06:30 09/23/18 06:29 09/14/18 05:42 Magnesium Hydroxide (Mom) 30 ml DAILYPRN PRN ORAL Constipation 09/14/18 07:45 10/12/18 07:44 Bryon Carlson MD Sep 14, 2018 22:20
[2018-09-15] VITALS: BP 136/70
--- NOTE | 2018-09-15 01:30 | Progress Note ---
CARDIOLOGY PROGRESS NOTE DATE: 09/13/2018 SUBJECTIVE: The patient is more alert, less congested. He is off BiPAP. He follows simple commands and is at his baseline. OBJECTIVE: VITAL SIGNS: Blood pressure 153/72, pulse 63, and respirations 24. LUNGS: Coarse breath sounds. No wheezing. CARDIAC: Regular rhythm and rate. Normal S1, S2. ABDOMEN: Soft. G-tube intact. Suprapubic catheter intact. EXTREMITIES: Trace edema. LABORATORY DATA: No new labs. IMPRESSION: 1. Acute on chronic respiratory acidosis. 2. Respiratory failure. 3. Sepsis, status post shock. 4. Acute on chronic diastolic congestive heart failure, clinically compensated. 5. Insulin requiring diabetes mellitus. PLAN: 1. Monitor volume status. 2. Monitor acid-base parameters. 3. Monitor respiratory parameters. 4. Continue antiseizure therapy. 5. Taper BiPAP. 6. DVT prophylaxis. Bryon Ramirez M.D. DR: ZABRINA JOB#: [id number] CC:
--- NOTE | 2018-09-15 01:30 | Progress Note ---
DATE: 09/14/2018 CARDIOLOGY PROGRESS NOTE SUBJECTIVE: The patient is on p.r.n. BiPAP support. OBJECTIVE: VITAL SIGNS: Blood pressure 121/61, pulse 67, and respiratory rate 16. Monitored rhythm sinus. Rare ectopics. LUNGS: Diminished breath sounds. HEART: Regular rhythm and rate. Normal S1, S2. ABDOMEN: Soft. G-tube intact. Suprapubic catheter intact. Prior abdominal surgical site without drainage. IMPRESSION: 1. Hypertensive heart disease with controlled blood pressure. 2. Acute on chronic diastolic congestive heart failure clinically compensated. 3. Status post sepsis with shock. 4. Respiratory failure, improved. 5. Dementia. 6. Suprapubic catheter. 7. Status post removal of infected dialysis catheter. PLAN: 1. Recheck laboratory studies. 2. Continue respiratory hygiene and p.r.n. BiPAP. 3. Maintain current cardiovascular regimen. 4. Nutrition and fluid support by feeding tube. 5. Insulin coverage by sliding scale. Bryon Ramirez M.D. DR: DARRON JOB#: [id number] CC:
--- NOTE | 2018-09-15 03:15 | Discharge Summary ---
DATE OF ADMISSION: 08/21/2018 DATE OF DISCHARGE: 09/14/2018 ADMITTING DIAGNOSES: 1. Respiratory failure. 2. Sepsis. 3. Possible acute FL. 4. Encephalopathy. 5. Pneumonia. 6. Dementia. 7. Diabetes. 8. Toxic metabolic encephalopathy. 9. Functional quadriplegia. DISCHARGE DIAGNOSES: 1. Respiratory failure. 2. Sepsis. 3. Possible acute FL. 4. Encephalopathy. 5. Pneumonia. 6. Dementia. 7. Diabetes. 8. Toxic metabolic encephalopathy. 9. Functional quadriplegia. HOSPITAL COURSE: The patient is an unfortunate male who is admitted with complaints of shock and possible acute FL. He was initially placed on non-rebreather. He had x-ray evidence of pneumonia. He had an elevated white count. He was initially treated with broad-spectrum antibiotics. He had a prolonged hospitalization complicated by recurrent sepsis and respiratory failure. He did not require intubation, but required continuous BiPAP. He was eventually weaned off of continuous BiPAP to only nocturnal BiPAP. He had abdominal pain and was found to have an indwelling peritoneal catheter, the etiology of which was unclear. It appeared to have broken off, and it was still retained in the abdominal cavity. Surgery consultation was obtained. The patient had the catheter removed. He had a drain placed, was noted to have an abscess. He received broad-spectrum IV antibiotic therapy. Eventually, he was stabilized and on discharge was well. He will be discharged to continue on nocturnal BiPAP to a half-way facility. He had completed all of his antibiotics in-house. DISCHARGE MEDICATIONS: Please see discharge list for discharge medications. DIET: G-tube feedings. ACTIVITIES: Ad farhad. Michael Zuniga M.D. DR: KATHLEEN JOB#: [id number] CC:
[2018-09-15 04:00] VITALS: BP 141/72
[2018-09-15] MEDS: Levothyroxine 125mcg tab ORAL SCH (05:50)
[2018-09-15] MEDS: NovoLOG Insulin Flexpen SUBQ SCH ×3 (05:53→17:44)
[2018-09-15 06:35] LABS: BASOPHILS % (AUTO) 1.1 % (0.0-2.0); EOSINOPHILS % (AUTO) 7.8 % (0.0-3.0); HEMATOCRIT 34.3 % (42.0-52.0); HEMOGLOBIN 11.2 G/DL (14.2-18.0); LYMPHOCYTES % (AUTO) 15.3 % (20.0-45.0); MEAN CORPUSCULAR VOLUME 95 FL (80-99); MONOCYTES % (AUTO) 8.6 % (1.0-10.0); NEUTROPHILS % (AUTO) 67.2 % (45.0-75.0); PLATELET COUNT 365 K/UL (150-450); RED CELL DISTRIBUTION WIDTH 14.6 % (11.6-14.8); WHITE BLOOD COUNT 6.3 K/UL (4.8-10.8)
[2018-09-15 07:03] LABS: ALANINE AMINOTRANSFERASE 17 U/L (12-78); ALBUMIN/GLOBULIN RATIO 0.3 (1.0-2.7); ALKALINE PHOSPHATASE 125 U/L (46-116); ANION GAP 5 mmol/L (5-15); ASPARTATE AMINO TRANSFERASE 16 U/L (15-37); BILIRUBIN,TOTAL 0.2 MG/DL (0.2-1.0); BLOOD UREA NITROGEN 32 mg/dL (7-18); CALCIUM 9.8 MG/DL (8.5-10.1); CARBON DIOXIDE 32 MMOL/L (21-32); CHLORIDE 100 MMOL/L (98-107); CREATININE 0.7 MG/DL (0.55-1.30); POTASSIUM 4.6 MMOL/L (3.5-5.1); SODIUM 137 MMOL/L (136-145)
--- NOTE | 2018-09-15 08:04 | Pulmonology Progress Note ---
Assessment/Plan Assessment/Plan IMPRESSION: 1. Respiratory failure, acute 2. Sepsis with shock. s/p 3. Dysphagia. 4. G-tube. 5. CVA. 6. Altered mental status. 7. Aspiration pneumonia 8. Severe protein-calorie malnutrition. 9. Diabetes. 10. pneumonia 11. pulmonary congestion PLAN respiratory care -BIPAP as needed; agree with nocturnal use at [facility] aspiration precautions noted periodic imaging suction PRN antibiotics management reviewed close follow up for change appears stable for discharge DVT prophylaxis impression, plan, and exam edited and reviewed in detail care discussed with RN Subjective ROS Limited/Unobtainable: Yes Allergies: Coded Allergies: No Known Allergies (Unverified , 06/17/18) Subjective reviewed care off BIPAP and seems stable no respiratory distress confused and same plans to be discharged today Objective Last 24 Hour Vital Signs Date Time Temp Pulse Resp B/P (MAP) Pulse Ox O2 Delivery O2 Flow Rate FiO2 09/15/18 05:10 63 22 99 Full Face 35 09/15/18 04:00 97.5 62 22 141/72 (95) 100 09/15/18 03:50 68 17 97 Full Face 35 09/15/18 01:20 70 15 97 Full Face 35 09/15/18 00:00 97.5 60 18 136/70 (92) 99 09/14/18 22:50 63 20 96 Full Face 35 09/14/18 21:00 Nasal Cannula 2.0 09/14/18 20:00 98.2 61 20 140/89 (106) 98 09/14/18 19:57 98 Nasal Cannula 2.0 28 09/14/18 19:57 Nasal Cannula 2.0 28 09/14/18 16:00 98.8 101 19 109/54 (72) 98 09/14/18 12:00 98.1 60 16 108/60 (76) 96 98.1 09/14/18 09:00 Nasal Cannula 2.0 09/14/18 08:07 Nasal Cannula 2.0 28 09/14/18 08:06 98 Nasal Cannula 2.0 28 Intake and Output 09/14/18 09/15/18 18:59 06:59 Intake Total 840 ml 800 ml Output Total 750 ml 550 ml Balance 90 ml 250 ml Intake Free Water 60 ml 150 ml Tube Feeding 780 ml 650 ml Output Urine Total 750 ml 550 ml # Bowel Movements 2 3 Objective GENERAL: Ill-appearing male, withdrawn, nonverbal. ALOC; on NC LUNGS: scattered rhonchi, moderate air entry, symmetric. CARDIAC: Normal S1, S2. RRR without murmurs, rubs, or gallops. ABDOMEN: Soft, nontender, nondistended. no distention; no HSM EXTREMITIES: No cyanosis or clubbing. no edema SKIN: noted GENITOURINARY: suprapubic catheter. NEUROLOGIC: withdrawn nonverbal at present; awake reviewed and edited Laboratory Tests 09/14/18 12:30: Urine Color Yellow, Urine Appearance Slightly cloudy, Urine pH 5, Urine Specific [place] 1.015, Urine Protein 2+H, Urine Glucose (UA) Negative, Urine Ketones Negative, Urine Blood 2+H, Urine Nitrite Negative, Urine Bilirubin Negative, Urine Urobilinogen Normal, Urine Leukocyte Esterase 3+H, Urine RBC 2- 4H, Urine WBC 20-30H, Urine Squamous Epithelial Cells Few, Urine Bacteria Few, Urine Yeast ManyH 09/15/18 05:45: White Blood Count 6.3, Red Blood Count 3.60L, Hemoglobin 11.2L, Hematocrit 34.3L , Mean Corpuscular Volume 95, Mean Corpuscular Hemoglobin 31.1H, Mean Corpuscular Hemoglobin Concent 32.7, Red Cell Distribution Width 14.6, Platelet Count 365, Mean Platelet Volume 5.7L, Neutrophils (%) (Auto) 67.2, Lymphocytes ( %) (Auto) 15.3L, Monocytes (%) (Auto) 8.6, Eosinophils (%) (Auto) 7.8H, Basophils (%) (Auto) 1.1, Sodium Level 137, Potassium Level 4.6, Chloride Level 100, Carbon Dioxide Level 32, Anion Gap 5, Blood Urea Nitrogen 32H, Creatinine 0.7, Estimat Glomerular Filtration Rate , Glucose Level 172H, Calcium Level 9.8 , Magnesium Level 2.1, Total Bilirubin 0.2, Aspartate Amino Transf (AST/SGOT) 16 , Alanine Aminotransferase (ALT/SGPT) 17, Alkaline Phosphatase 125H, Pro-B-Type Natriuretic Peptide 1058H, Total Protein 7.9, Albumin 2.0L, Globulin 5.9, Albumin/Globulin Ratio 0.3L Current Medications Medications (Trade) Dose Ordered Sig/Benjamin Route PRN Reason Start Time Stop Time Status Last Admin Dose Admin Acetaminophen (Tylenol) 650 mg Q4H PRN ORAL Mild Pain/Temp > 100.5 09/14/18 01:00 09/27/18 08:59 09/14/18 10:04 Aspirin (ASA) 81 mg DAILY GT 09/14/18 09:00 09/22/18 08:59 09/14/18 10:03 Bisacodyl (Dulcolax) 10 mg DAILYPRN PRN RECTAL Constipation 09/14/18 07:45 10/12/18 07:44 Dextrose (Dextrose 50%) 25 ml Q30M PRN IV Hypoglycemia 09/13/18 22:00 09/20/18 08:59 Dextrose (Dextrose 50%) 50 ml Q30M PRN IV Hypoglycemia 09/13/18 22:00 09/20/18 08:59 Docusate Sodium (Colace) 250 mg EVERY 12 HOURS GT 09/14/18 09:00 10/13/18 20:59 09/14/18 21:04 Heparin Sodium (Porcine) (Heparin 5000 units/ml) 5,000 units EVERY 12 HOURS SUBQ 09/14/18 09:00 09/20/18 20:59 09/14/18 21:04 Insulin Aspart (NovoLOG) EVERY 6 HOURS SUBQ 09/14/18 00:00 09/22/18 11:59 09/15/18 05:53 Lansoprazole (Prevacid) 30 mg DAILY GT 09/14/18 09:00 09/24/18 08:59 09/14/18 10:04 Levetiracetam (Keppra) 750 mg Q12HR GT 09/14/18 09:00 10/04/18 08:59 09/14/18 21:04 Levothyroxine Sodium (Synthroid) 125 mcg DAILY@0630 ORAL 09/14/18 06:30 09/23/18 06:29 09/15/18 05:50 Magnesium Hydroxide (Mom) 30 ml DAILYPRN PRN ORAL Constipation 09/14/18 07:45 10/12/18 07:44 James Langston MD Sep 15, 2018 08:04
[2018-09-15] MEDS: Aspirin Baby 81mg GT SCH (08:24)
[2018-09-15] MEDS: Docusate 100mg/10ml Liq GT SCH ×2 (08:24→20:39)
[2018-09-15] MEDS: levETIRAcetam 500mg/5ml Liquid GT SCH ×2 (08:29→20:39)
[2018-09-15] MEDS: Heparin 5000 units/ml inj SUBQ SCH ×2 (08:32→20:41)
[2018-09-15 09:00] VITALS: BP 136/64
--- NOTE | 2018-09-15 09:11 | General Progress Note ---
Assessment/Plan Problem List: (1) UTI (urinary tract infection) ICD Codes: N39.0 - Urinary tract infection, site not specified SNOMED: 31070956 Qualifiers: Qualified Codes: T83.511A - Infection and inflammatory reaction due to indwelling urethral catheter, initial encounter; N39.0 - Urinary tract infection , site not specified (2) Severe sepsis ICD Codes: A41.9 - Sepsis, unspecified organism; R65.20 - Severe sepsis without septic shock SNOMED: 33693918 (3) NSTEMI (non-ST elevated myocardial infarction) ICD Codes: I21.4 - Non-ST elevation (NSTEMI) myocardial infarction SNOMED: 742178952 (4) Right lower lobe pneumonia ICD Codes: J18.1 - Lobar pneumonia, unspecified organism SNOMED: 062267618 Qualifiers: (5) Elevated lactic acid level ICD Codes: R79.89 - Other specified abnormal findings of blood chemistry SNOMED: 5578936 Status: stable, progressing Assessment/Plan monitor abg bipap per pulm- nightly and prn monitor off abx per id jonathan care stable currently dc planning when snf obtain bipap for night time use Subjective ROS Limited/Unobtainable: No Constitutional: Reports: malaise, weakness HEENT: Reports: no symptoms Cardiovascular: Reports: no symptoms Respiratory: Reports: cough, shortness of breath Gastrointestinal/Abdominal: Reports: difficulty swallowing Genitourinary: Reports: no symptoms Neurologic/Psychiatric: Reports: pre-existing deficit Endocrine: Reports: no symptoms Hematologic/Lymphatic: Reports: anemia Allergies: Coded Allergies: No Known Allergies (Unverified , 06/17/18) All Systems: reviewed and negative except above Subjective dc cancelled because snf did not have Bipap. no changes overnight. used bipap without incident, awake currently no complaints. Objective Last 24 Hour Vital Signs Date Time Temp Pulse Resp B/P (MAP) Pulse Ox O2 Delivery O2 Flow Rate FiO2 09/15/18 05:10 63 22 99 Full Face 35 09/15/18 04:00 97.5 62 22 141/72 (95) 100 09/15/18 03:50 68 17 97 Full Face 35 09/15/18 01:20 70 15 97 Full Face 35 09/15/18 00:00 97.5 60 18 136/70 (92) 99 09/14/18 22:50 63 20 96 Full Face 35 09/14/18 21:00 Nasal Cannula 2.0 09/14/18 20:00 98.2 61 20 140/89 (106) 98 09/14/18 19:57 98 Nasal Cannula 2.0 28 09/14/18 19:57 Nasal Cannula 2.0 28 09/14/18 16:00 98.8 101 19 109/54 (72) 98 09/14/18 12:00 98.1 60 16 108/60 (76) 96 98.1 Intake and Output 09/14/18 09/15/18 18:59 06:59 Intake Total 840 ml 800 ml Output Total 750 ml 550 ml Balance 90 ml 250 ml Intake Free Water 60 ml 150 ml Tube Feeding 780 ml 650 ml Output Urine Total 750 ml 550 ml # Bowel Movements 2 3 Laboratory Tests 09/14/18 12:30: Urine Color Yellow, Urine Appearance Slightly cloudy, Urine pH 5, Urine Specific [place] 1.015, Urine Protein 2+H, Urine Glucose (UA) Negative, Urine Ketones Negative, Urine Blood 2+H, Urine Nitrite Negative, Urine Bilirubin Negative, Urine Urobilinogen Normal, Urine Leukocyte Esterase 3+H, Urine RBC 2- 4H, Urine WBC 20-30H, Urine Squamous Epithelial Cells Few, Urine Bacteria Few, Urine Yeast ManyH 09/15/18 05:45: White Blood Count 6.3, Red Blood Count 3.60L, Hemoglobin 11.2L, Hematocrit 34.3L , Mean Corpuscular Volume 95, Mean Corpuscular Hemoglobin 31.1H, Mean Corpuscular Hemoglobin Concent 32.7, Red Cell Distribution Width 14.6, Platelet Count 365, Mean Platelet Volume 5.7L, Neutrophils (%) (Auto) 67.2, Lymphocytes ( %) (Auto) 15.3L, Monocytes (%) (Auto) 8.6, Eosinophils (%) (Auto) 7.8H, Basophils (%) (Auto) 1.1, Sodium Level 137, Potassium Level 4.6, Chloride Level 100, Carbon Dioxide Level 32, Anion Gap 5, Blood Urea Nitrogen 32H, Creatinine 0.7, Estimat Glomerular Filtration Rate , Glucose Level 172H, Calcium Level 9.8 , Magnesium Level 2.1, Total Bilirubin 0.2, Aspartate Amino Transf (AST/SGOT) 16 , Alanine Aminotransferase (ALT/SGPT) 17, Alkaline Phosphatase 125H, Pro-B-Type Natriuretic Peptide 1058H, Total Protein 7.9, Albumin 2.0L, Globulin 5.9, Albumin/Globulin Ratio 0.3L Height (Feet): 5 Height (Inches): 5.00 Weight (Pounds): 126 Objective General Appearance: WD/WN, off bipap. opens eyes. moans/responds Neck: supple Cardiovascular: normal rate, regular rhythm Respiratory/Chest: chest wall non-tender, lungs with farhat rhonchi Abdomen: normal bowel sounds, non tender, soft, no organomegaly Neurologic: alert, says few words Michael Zuniga MD Sep 15, 2018 09:11
[2018-09-15 12:00] VITALS: BP 147/69
--- NOTE | 2018-09-15 12:57 | Urology Progress Note ---
Assessment/Plan Assessment/Plan 1. Urinary retention with chronic suprapubic tube. 2. Benign prostatic hypertrophy history. 3. Neurogenic bladder. 4. Urinary tract infection and colonization. 5. Hematuria. 6. Proteinuria. keep SP tube, last exchanged 08/23 hand irrigated and do PRN s/p abx cysto later consider recheck urine cx at some point Subjective Allergies: Coded Allergies: No Known Allergies (Unverified , 06/17/18) Subjective all noted, peritoneal cath removed 09/01, moved to step down Objective Last 24 Hour Vital Signs Date Time Temp Pulse Resp B/P (MAP) Pulse Ox O2 Delivery O2 Flow Rate FiO2 09/15/18 09:00 Nasal Cannula 2.0 09/15/18 09:00 98.0 66 20 136/64 (88) 95 09/15/18 05:10 63 22 99 Full Face 35 09/15/18 04:00 97.5 62 22 141/72 (95) 100 09/15/18 03:50 68 17 97 Full Face 35 09/15/18 01:20 70 15 97 Full Face 35 09/15/18 00:00 97.5 60 18 136/70 (92) 99 09/14/18 22:50 63 20 96 Full Face 35 09/14/18 21:00 Nasal Cannula 2.0 09/14/18 20:00 98.2 61 20 140/89 (106) 98 09/14/18 19:57 98 Nasal Cannula 2.0 28 09/14/18 19:57 Nasal Cannula 2.0 28 09/14/18 16:00 98.8 101 19 109/54 (72) 98 Intake and Output 09/14/18 09/15/18 19:00 07:00 Intake Total 905 ml 735 ml Output Total 750 ml 550 ml Balance 155 ml 185 ml Intake Free Water 60 ml 150 ml Tube Feeding 845 ml 585 ml Output Urine Total 750 ml 550 ml # Bowel Movements 2 3 Microbiology Date/Time Source Procedure Growth Status 09/08/18 19:20 Blood Blood Culture - Final NO GROWTH AFTER 5 DAYS Complete 09/08/18 22:00 Wound Gram Stain - Final Complete 09/08/18 22:00 Wound Culture - Final Staphylococcus Aureus - Mrsa Staphylococcus Sp Coag Neg Complete 09/09/18 15:20 Sputum Gram Stain - Final Complete 09/09/18 15:20 Sputum Culture - Final Lynn Tropicalis Usual Respiratory Krissy Complete 08/25/18 17:00 Stool Clostridium difficile Toxin Assay - Final Complete 09/14/18 12:30 Urine,Clean Catch Urine Culture - Preliminary Resulted 09/01/18 15:56 Abdominal Abscess Gram Stain - Final Complete 09/01/18 15:56 Aerobic Culture - Final Escherichia Coli - Esbl Providencia Stuartii Usual Skin Krissy Complete 09/01/18 15:56 Abdominal Abscess Anaerobic Culture - Final NO ANAEROBES ISOLATED Complete Current Medications Medications (Trade) Dose Ordered Sig/Benjamin Route PRN Reason Start Time Stop Time Status Last Admin Dose Admin Acetaminophen (Tylenol) 650 mg Q4H PRN ORAL Mild Pain/Temp > 100.5 09/14/18 01:00 09/27/18 08:59 09/14/18 10:04 Aspirin (ASA) 81 mg DAILY GT 09/14/18 09:00 09/22/18 08:59 09/15/18 08:24 Bisacodyl (Dulcolax) 10 mg DAILYPRN PRN RECTAL Constipation 09/14/18 07:45 10/12/18 07:44 Dextrose (Dextrose 50%) 25 ml Q30M PRN IV Hypoglycemia 09/13/18 22:00 09/20/18 08:59 Dextrose (Dextrose 50%) 50 ml Q30M PRN IV Hypoglycemia 09/13/18 22:00 09/20/18 08:59 Docusate Sodium (Colace) 250 mg EVERY 12 HOURS GT 09/14/18 09:00 10/13/18 20:59 09/15/18 08:24 Heparin Sodium (Porcine) (Heparin 5000 units/ml) 5,000 units EVERY 12 HOURS SUBQ 09/14/18 09:00 09/20/18 20:59 09/15/18 08:32 Insulin Aspart (NovoLOG) EVERY 6 HOURS SUBQ 09/14/18 00:00 09/22/18 11:59 09/15/18 12:01 Lansoprazole (Prevacid) 30 mg DAILY GT 09/14/18 09:00 09/24/18 08:59 09/15/18 08:24 Levetiracetam (Keppra) 750 mg Q12HR GT 09/14/18 09:00 10/04/18 08:59 09/15/18 08:29 Levothyroxine Sodium (Synthroid) 125 mcg DAILY@0630 ORAL 09/14/18 06:30 09/23/18 06:29 09/15/18 05:50 Magnesium Hydroxide (Mom) 30 ml DAILYPRN PRN ORAL Constipation 09/14/18 07:45 10/12/18 07:44 Laboratory Tests 09/15/18 05:45: White Blood Count 6.3, Red Blood Count 3.60L, Hemoglobin 11.2L, Hematocrit 34.3L , Mean Corpuscular Volume 95, Mean Corpuscular Hemoglobin 31.1H, Mean Corpuscular Hemoglobin Concent 32.7, Red Cell Distribution Width 14.6, Platelet Count 365, Mean Platelet Volume 5.7L, Neutrophils (%) (Auto) 67.2, Lymphocytes ( %) (Auto) 15.3L, Monocytes (%) (Auto) 8.6, Eosinophils (%) (Auto) 7.8H, Basophils (%) (Auto) 1.1, Sodium Level 137, Potassium Level 4.6, Chloride Level 100, Carbon Dioxide Level 32, Anion Gap 5, Blood Urea Nitrogen 32H, Creatinine 0.7, Estimat Glomerular Filtration Rate , Glucose Level 172H, Calcium Level 9.8 , Magnesium Level 2.1, Total Bilirubin 0.2, Aspartate Amino Transf (AST/SGOT) 16 , Alanine Aminotransferase (ALT/SGPT) 17, Alkaline Phosphatase 125H, Pro-B-Type Natriuretic Peptide 1058H, Total Protein 7.9, Albumin 2.0L, Globulin 5.9, Albumin/Globulin Ratio 0.3L Height (Feet): 5 Height (Inches): 5.00 Weight (Pounds): 126 Objective exam stable, urine clearing head CT noted CXR noted ALEJANDRO COLLIER Sep 15, 2018 12:57
[2018-09-15 16:00] VITALS: BP 124/62
[2018-09-15 20:00] VITALS: BP 139/64
[2018-09-16] VITALS: BP 130/55
[2018-09-16] MEDS: NovoLOG Insulin Flexpen SUBQ SCH ×3 (00:47→12:59)
--- NOTE | 2018-09-16 03:30 | Progress Note ---
DATE: 09/15/2018 SUBJECTIVE: The patient remains on BiPAP support overnight. Discharge planning in progress. No new respiratory distress. OBJECTIVE: VITAL SIGNS: Blood pressure 141/72, pulse 62, and respiratory rate 22. LUNGS: Good breath sounds. No wheezing. HEART: Regular rhythm and rate. Normal S2, S2. ABDOMEN: Soft. G-tube intact. Suprapubic catheter intact. Surgical sites dry. EXTREMITIES: No edema. LABORATORY DATA: White count 6.3 and hemoglobin 11.2. Sodium 137, potassium 4.6, bicarb 32, BUN 33, and creatinine 0.7. Pro-natriuretic peptide is 1058. Albumin improved to 2.0. IMPRESSION: 1. Acute on chronic diastolic congestive heart failure, now clinically compensated. Natriuretic peptide has decreased from over 13,000 . 2. Hypertensive heart disease with controlled blood pressure. Stable cardiac rhythm. 3. Sepsis resolved. 4. Shock recovered. 5. Recovering Healthcare acquired pneumonia with continued respiratory insufficiency and need for BiPAP intermittently. PLAN: 1. Continue current cardiovascular regimen. 2. Discharge planning in progress. 3. BiPAP support as needed. 4. Suprapubic catheter care long-term. 5. Nutrition by feeding tube. Bryon Ramirez M.D. DR: CHAN JOB#: [id number] CC:
[2018-09-16 03:59] VITALS: BP 134/66
[2018-09-16] MEDS: Levothyroxine 125mcg tab ORAL SCH (06:10)
[2018-09-16 08:00] VITALS: BP 130/68
--- NOTE | 2018-09-16 08:32 | General Progress Note ---
Assessment/Plan Problem List: (1) UTI (urinary tract infection) ICD Codes: N39.0 - Urinary tract infection, site not specified SNOMED: 26973470 Qualifiers: Qualified Codes: T83.511A - Infection and inflammatory reaction due to indwelling urethral catheter, initial encounter; N39.0 - Urinary tract infection , site not specified (2) Severe sepsis ICD Codes: A41.9 - Sepsis, unspecified organism; R65.20 - Severe sepsis without septic shock SNOMED: 13939264 (3) NSTEMI (non-ST elevated myocardial infarction) ICD Codes: I21.4 - Non-ST elevation (NSTEMI) myocardial infarction SNOMED: 797667636 (4) Right lower lobe pneumonia ICD Codes: J18.1 - Lobar pneumonia, unspecified organism SNOMED: 294675977 Qualifiers: (5) Elevated lactic acid level ICD Codes: R79.89 - Other specified abnormal findings of blood chemistry SNOMED: 8995210 Status: stable Assessment/Plan monitor abg bipap per pulm- nightly and prn monitor off abx per id jonathan care stable currently dc planning when snf obtain bipap for night time use Subjective ROS Limited/Unobtainable: No Constitutional: Reports: malaise, weakness HEENT: Reports: no symptoms Cardiovascular: Reports: no symptoms Respiratory: Reports: no symptoms Gastrointestinal/Abdominal: Reports: difficulty swallowing Genitourinary: Reports: no symptoms Neurologic/Psychiatric: Reports: pre-existing deficit Endocrine: Reports: no symptoms Hematologic/Lymphatic: Reports: anemia Allergies: Coded Allergies: No Known Allergies (Unverified , 06/17/18) All Systems: reviewed and negative except above Subjective no events. stable. off bipap this am. using bipap at night. responds to simple questions Objective Last 24 Hour Vital Signs Date Time Temp Pulse Resp B/P (MAP) Pulse Ox O2 Delivery O2 Flow Rate FiO2 09/16/18 08:17 98 Nasal Cannula 1.0 24 09/16/18 08:17 Nasal Cannula 1.0 24 09/16/18 03:59 97.8 57 20 134/66 (88) 99 09/16/18 03:11 58 25 98 Facial 35 09/16/18 01:35 60 28 98 Facial 35 09/16/18 00:00 97.5 63 20 130/55 (80) 98 09/15/18 23:35 64 23 97 Facial 35 09/15/18 22:04 62 25 98 Facial 35 09/15/18 21:30 Nasal Cannula 2.0 09/15/18 20:00 97.7 67 20 139/64 (89) 99 09/15/18 20:00 97 Nasal Cannula 2.0 28 09/15/18 20:00 Nasal Cannula 2.0 28 09/15/18 16:00 97.2 68 20 124/62 (82) 100 09/15/18 12:00 98.1 60 18 147/69 (95) 100 09/15/18 09:00 Nasal Cannula 2.0 09/15/18 09:00 98.0 66 20 136/64 (88) 95 Intake and Output 09/15/18 09/16/18 18:59 06:59 Intake Total 880 ml 970 ml Output Total 600 ml 550 ml Balance 280 ml 420 ml Intake Free Water 100 ml 190 ml Tube Feeding 780 ml 780 ml Output Urine Total 600 ml 550 ml # Voids 1 # Bowel Movements 1 1 Height (Feet): 5 Height (Inches): 5.00 Weight (Pounds): 126 Objective General Appearance: WD/WN, off bipap. opens eyes. moans/responds Neck: supple Cardiovascular: normal rate, regular rhythm Respiratory/Chest: chest wall non-tender, lungs with farhat rhonchi Abdomen: normal bowel sounds, non tender, soft, no organomegaly Neurologic: alert, says few words Michael Zuniga MD Sep 16, 2018 08:32
[2018-09-16] MEDS: Docusate 100mg/10ml Liq GT SCH (08:35)
[2018-09-16] MEDS: Aspirin Baby 81mg GT SCH (08:35)
[2018-09-16] MEDS: levETIRAcetam 500mg/5ml Liquid GT SCH (08:36)
[2018-09-16] MEDS: Heparin 5000 units/ml inj SUBQ SCH (08:38)
[2018-09-16 12:00] VITALS: BP 138/68
--- NOTE | 2018-09-16 15:14 | Urology Progress Note ---
Assessment/Plan Assessment/Plan 1. Urinary retention with chronic suprapubic tube. 2. Benign prostatic hypertrophy history. 3. Neurogenic bladder. 4. Urinary tract infection and colonization. 5. Hematuria. 6. Proteinuria. keep SP tube, last exchanged 08/23 hand irrigated and do PRN rec q cath q 3-4 weeks s/p abx cysto later consider recheck urine cx at some point Subjective Allergies: Coded Allergies: No Known Allergies (Unverified , 06/17/18) Subjective all noted, pt seen earlier today Objective Last 24 Hour Vital Signs Date Time Temp Pulse Resp B/P (MAP) Pulse Ox O2 Delivery O2 Flow Rate FiO2 09/16/18 12:00 98.3 66 18 138/68 (91) 97 09/16/18 09:20 Nasal Cannula 2.0 09/16/18 08:17 98 Nasal Cannula 1.0 24 09/16/18 08:17 Nasal Cannula 1.0 24 09/16/18 08:00 97.7 60 19 130/68 (88) 100 09/16/18 03:59 97.8 57 20 134/66 (88) 99 09/16/18 03:11 58 25 98 Facial 35 09/16/18 01:35 60 28 98 Facial 35 09/16/18 00:00 97.5 63 20 130/55 (80) 98 09/15/18 23:35 64 23 97 Facial 35 09/15/18 22:04 62 25 98 Facial 35 09/15/18 21:30 Nasal Cannula 2.0 09/15/18 20:00 97.7 67 20 139/64 (89) 99 09/15/18 20:00 97 Nasal Cannula 2.0 28 09/15/18 20:00 Nasal Cannula 2.0 28 09/15/18 16:00 97.2 68 20 124/62 (82) 100 Intake and Output 09/15/18 09/16/18 19:00 07:00 Intake Total 910 ml 940 ml Output Total 600 ml 550 ml Balance 310 ml 390 ml Intake Free Water 130 ml 160 ml Tube Feeding 780 ml 780 ml Output Urine Total 600 ml 550 ml # Voids 1 # Bowel Movements 1 1 Microbiology Date/Time Source Procedure Growth Status 09/08/18 19:20 Blood Blood Culture - Final NO GROWTH AFTER 5 DAYS Complete 09/08/18 22:00 Wound Gram Stain - Final Complete 09/08/18 22:00 Wound Culture - Final Staphylococcus Aureus - Mrsa Staphylococcus Sp Coag Neg Complete 09/09/18 15:20 Sputum Gram Stain - Final Complete 09/09/18 15:20 Sputum Culture - Final Lynn Tropicalis Usual Respiratory Krissy Complete 08/25/18 17:00 Stool Clostridium difficile Toxin Assay - Final Complete 09/14/18 12:30 Urine,Clean Catch Urine Culture - Preliminary YEAST Resulted 09/01/18 15:56 Abdominal Abscess Gram Stain - Final Complete 09/01/18 15:56 Aerobic Culture - Final Escherichia Coli - Esbl Providencia Stuartii Usual Skin Krissy Complete 09/01/18 15:56 Abdominal Abscess Anaerobic Culture - Final NO ANAEROBES ISOLATED Complete Height (Feet): 5 Height (Inches): 5.00 Weight (Pounds): 126 Objective exam stable, urine clearing head CT noted CXR noted ALEJANDRO COLLIER Sep 16, 2018 15:14
--- NOTE | 2018-09-17 01:45 | Progress Note ---
DATE: 09/16/2018 CARDIOLOGY PROGRESS NOTE SUBJECTIVE: The patient is off BiPAP this morning, he uses it at night. He is alert and at baseline mentation. Answering simple questions. OBJECTIVE: VITAL SIGNS: Blood pressure 134/66, pulse 57, respirations 20, and afebrile. LUNGS: Bilateral breath sounds. Few rhonchi. No wheezes. CARDIAC: Regular rhythm rate. Normal S1 and S2 with a fourth heart sound. ABDOMEN: Soft. No guarding or rebound. G-tube intact. Suprapubic catheter site intact. Surgical removal of peritoneal dialysis catheter occurred is now closed without any signs of drainage. EXTREMITIES: Without edema. IMPRESSION: 1. Sepsis with shock recovered, status post replacement of infected suprapubic catheter. 2. Acute on chronic diastolic congestive heart failure, now compensated clinically. 3. Metabolic acidosis and lactic acidosis, recovered. 4. Acute respiratory insufficiency, resolved. 5. Healthcare-acquired pneumonia, recovered. PLAN: The patient remains high-risk due to comorbidities, however, presently stable for a lower level of care at the long term facility. The patient's medication regimen has been reviewed and reconciled for discharge. Additional discharge orders discussed with primary care physician. Bryon Ramirez M.D. DR: REGI JOB#: [id number] CC:
== END 2018-09-16 14:00 | DRG 853 ==
LOC: EDBD 15:02 → EMR 15:20 → EDBEDREQ 15:33 → 2W 15:57 → EDBEDREQ 16:05 → 2E 08-25 22:05 → 4E 09-08 18:40 → 2W 09-09 08:03 → 4E 09-13 21:50
DX: A41.9 Sepsis, unspecified organism (principal); L89.153 Pressure ulcer of sacral region, stage 3; R65.21 Severe sepsis with septic shock; E43 Unspecified severe protein-calorie malnutrition; J69.0 Pneumonitis due to inhalation of food and vomit; I50.33 Acute on chronic diastolic (congestive) heart failure; J96.01 Acute respiratory failure with hypoxia; I21.4 Non-ST elevation (NSTEMI) myocardial infarction; K65.8 Other peritonitis; R53.2 Functional quadriplegia; G92 Toxic encephalopathy; I13.0 Hypertensive heart and chronic kidney disease with heart failure and stage 1 through stage 4 chronic kidney disease, or unspecified chronic kidney disease; N39.0 Urinary tract infection, site not specified; T85.79XA Infection and inflammatory reaction due to other internal prosthetic devices, implants and grafts, initial encounter; N17.9 Acute kidney failure, unspecified; R13.10 Dysphagia, unspecified; Z93.1 Gastrostomy status; G40.909 Epilepsy, unspecified, not intractable, without status epilepticus; N18.9 Chronic kidney disease, unspecified; E11.22 Type 2 diabetes mellitus with diabetic chronic kidney disease; F01.50 Vascular dementia, unspecified severity, without behavioral disturbance, psychotic disturbance, mood disturbance, and anxiety; E11.621 Type 2 diabetes mellitus with foot ulcer; L97.519 Non-pressure chronic ulcer of other part of right foot with unspecified severity; I25.5 Ischemic cardiomyopathy; Z66 Do not resuscitate; B96.20 Unspecified Escherichia coli [E. coli] as the cause of diseases classified elsewhere; Z68.21 Body mass index [BMI] 21.0-21.9, adult; N40.1 Benign prostatic hyperplasia with lower urinary tract symptoms; R33.8 Other retention of urine; R31.9 Hematuria, unspecified; N31.9 Neuromuscular dysfunction of bladder, unspecified; T85.9XXA Unspecified complication of internal prosthetic device, implant and graft, initial encounter; E83.42 Hypomagnesemia; I73.9 Peripheral vascular disease, unspecified; R00.1 Bradycardia, unspecified
CPT/HCPCS: 36415; 36600; 70450; 71045; 74176; 80053; 80202; 80299; 81001; 81003; 82270; 82550; 82553; 82803; 82962; 83605; 83735; 83880; 84443; 84484; 85007; 85025; 85610; 85651; 85730; 86140; 87040; 87070; 87075; 87081; 87086; 87181; 87205; 87324; 93005; 93925; 93970; 94003; 94150; 94640; 94660; 94664; 94760; 99283; J1815; J2405; J7620; J8499